=== PATIENT | female | born 1980 | race Caucasian/White ===

== ENCOUNTER 2018-05-10 20:12 | Emergency (ER) | payer MEDICARE, MEDICAID, SELFPAY ==
[2018-05-10 20:17] VITALS: BP 134/85; PULSE 101; RESP 16; TEMP 36.5; O2SAT 95
--- NOTE | 2018-05-10 20:59 | DI.REPORT_ITS ---
SYMPTOM/DIAGNOSIS: PAIN, FALL PA CHEST AND LEFT RIBS: Comparison is made with chest x-ray dated 28 Jul 2015. The lower ribs are not well penetrated. There is no gross evidence of a fracture. The lungs appear clear. The heart size is within normal limits. The left shoulder appears normal. IMPRESSION: Negative chest and left ribs.
--- NOTE | 2018-05-10 21:01 | ED.GENADUL ---
Disposition Clinical Impression: Contusion of rib on left side Disposition: HOME Instructions: Rib Contusion (ED) Additional Instructions: Please use incentive spirometer every other hour as directed for the next 1 week. Please take ibuprofen 600 mg by mouth every 6-8 hours as needed for pain for the next few days. Please take tylenol (acetaminophen) 650 mg every 6 hours as needed for pain. Remove lidocaine patch before 10:00am tomorrow. Please follow-up with your primary care physician. Return to the emergency department immediately for any worsening or new concerning symptoms. 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 Pain with deep inspiration. Lungs clear on exam and saturating well with no respiratory distress. Abdominal exam is benign. Concern for rib contusion versus fracture. Consider pneumothorax. We will place lidocaine patch for pain. Patient is taking ibuprofen and Tylenol prior to arrival. History of Present Illness - General Chief complaint: Orthopedic Stated complaint: RIBS & SHOULDER INJ/FELL Time Seen by Provider: 05/10/18 20:52 Source: patient, RN notes reviewed Mode of arrival: ambulatory Limitations: no limitations - History of Present Illness Initial comments: 37-year-old female with multiple medical problems including asthma, bipolar disorder, insulin dependent diabetes, on methadone, hepatitis C, migraine headaches, presents with chief complaint of rib pain. Patient notes that she tripped over her dog's leash and fell from standing to the ground. This occurred about 2 hours prior to arrival. Pain is localized to her left chest. Pain is severe and worse with deep inspiration. Patient took Tylenol and ibuprofen prior to arrival. No associated shortness of breath. She did hit her head but did not lose consciousness. No headache or neck pain. She does have some mild pain in her left hip. - Related Data Methadone HCl [Methadone Intensol] 70 mg PO DAILY 01/25/15 Alcohol Antiseptic Pads [Alcohol Pads] 1 each TP DAILY #100 each 08/01/15 Staples, Insulin Disposable [Bd Ultra-Fine Pen Needle] 1 each QID #360 ndl 08/09/16 Ammonium Lactate [AMMONIUM LACT 12%] 225 gm TP BID #1 script 01/13/17 Metformin HCl [Metformin HCl ER] 500 mg PO BID 02/20/17 Estradiol [Vagifem] 10 mcg VG HS twice weekly #24 tab 06/03/17 Albuterol Sulfate [Proair Hfa] 1 - 2 puff IH Q4-6H PRN #1 inhaler 06/12/17 Nystatin Powder 60 GM [Mycostatin Powder] 60 gm TP BID #60 gram 07/09/17 Atorvastatin Calcium 10 mg PO DAILY #90 tab-cap 08/11/17 Clonidine HCl 0.1 mg PO TID #270 tab-cap 11/19/17 Topiramate 25 mg PO DAILY 90 Days #90 cap.sprink 11/19/17 Blood Sugar Diagnostic [Onetouch Verio] 1 each QID #350 strip 12/01/17 Blood-Glucose Meter [Caro Nuttouch Verio Iq] 1 each QID #1 kit 12/01/17 Fluoxetine HCl [Prozac] 30 mg PO DAILY 12/03/17 Lancets 1 each QID #400 each 12/04/17 Fluticasone Propionate [Flonase Allergy Relief] 1 - 2 sprays NS DAILY PRN #1 bottle 12/19/17 SUMAtriptan [Imitrex] 25 mg PO See Instructions #9 tab-cap 12/31/17 Hydroxyzine HCl 25 mg PO HS PRN 01/13/18 Valacyclovir HCl [Valacyclovir] 500 mg PO DAILY #90 tab-cap 02/18/18 Omeprazole 20 mg PO DAILY #90 tab-cap 02/19/18 Acyclovir [Zovirax] 400 mg PO TID #15 tab-cap 02/20/18 Insulin Aspart [NovoLOG Flexpen] 50 - 60 units SQ PC #5 box 03/11/18 Metoclopramide HCl [Reglan] 10 mg PO TID #270 tab-cap 03/19/18 Polyethylene Glycol 3350 17 gm PO DAILY PRN #527 gram 03/19/18 Acetaminophen 1,000 mg PO Q8H PRN #90 tab-cap 03/23/18 Baclofen 10 mg PO TID PRN #60 tab-cap 03/23/18 Docusate Sodium [Colace] 300 mg PO HS #270 tab-cap 03/23/18 Ibuprofen 800 mg PO Q8H PRN #30 tab-cap 03/23/18 Magnesium Oxide 800 mg PO DAILY #180 tab-cap 03/23/18 Ondansetron [Ondansetron Odt] 8 mg PO BID PRN #180 tab-cap 03/23/18 Canagliflozin [Invokana] 300 mg PO DAILY #90 tab-cap 05/04/18 Insulin Degludec [Tresiba Flextouch U-100] 115 unit SQ HS #3 box 05/08/18 Pregabalin [Lyrica] 200 mg PO BID #56 tab-cap 05/08/18 Lidocaine 5% [Lidoderm 5% Patch] 1 each TP DAILY PRN PRN #10 patch 05/10/18 Allergies Allergy/AdvReac Type Severity Reaction Status Date / Time Penicillins Allergy Unknown unknown Unverified 05/10/18 20:19 aspirin AdvReac Intermediate nausea/pain Unverified 05/10/18 20:19 Review of Systems Respiratory: denies: cough, shortness of breath Cardiovascular: as per HPI, chest pain Gastrointestinal: denies: abdominal pain Musculoskeletal: as per HPI Neurological: as per HPI Comment: All other systems reviewed and negative Past Medical History - Past Medical History Medical history: asthma, diabetes migraine ALEXANDER, narcotic drug abuse, fibromyalgia Surgical history: , hysterectomy, other (Laparoscopy) - Social History Smoking status: current everyday smoker Alcohol use: none Drug use: cocaine (and heroin) General Exam - General Limitations: no limitations General appearance: alert, in no apparent distress - Eye Eye exam: Present: PERRL, EOMI - ENT ENT exam: Present: mucous membranes moist - Neck Neck exam: Present: full ROM. Absent: tenderness - Respiratory Respiratory exam: Present: normal lung sounds bilaterally, chest wall tenderness (left lateral 4-6 ribs), other (pain with inspiration). Absent: respiratory distress - GI/Abdominal GI/Abdominal exam: Present: soft, normal bowel sounds. Absent: distended, tenderness, guarding, rebound, rigid - Extremities Exam Extremities exam: Present: other (pelvis stable and nonttp, FROM left hip) - Neurological Exam Neurological exam: Present: alert. Absent: altered - Psychiatric Psychiatric exam: Absent: normal affect - Skin Skin exam: Present: warm, dry, intact Course Vital Signs - 24 hr 05/10/18 20:17 Temperature 36.5 C Pulse 101 H Respiratory 16 Rate Blood Pressure 134/85 Pulse Oximetry 95
[2018-05-10] MEDS: Lidocaine 5% Patch 1 PATCH TP (21:13)
--- NOTE | 2018-05-10 22:00 | DI.VRAD_ITS ---
EXAM: XR Left Ribs with PA Chest, 3 Views EXAM DATE/TIME: 05/10/2018 9:01 PM CLINICAL HISTORY: 37 years old, female; Pain; Other: Lt. Sided rib pain after fall. (left lower posterior) TECHNIQUE: XR Left ribs 3 views with PA chest. COMPARISON: CR - CHEST 2 VIEWS PA,LAT 2015-07-28 13:43 FINDINGS: Lungs: Unremarkable. No consolidation. Pleural space: Unremarkable. No pleural effusion. No pneumothorax. Heart/Mediastinum: There is mild-moderate cardiomegaly. Bones/joints: No acute fractures are seen. IMPRESSION: 1. No acute left rib fractures are detected. 2. No acute pulmonary disease or acute thoracic findings are identified. Dictated and Authenticated by: Robert Cervantes MD. Ordering:YUNIOR PERSON MD
== END 2018-05-10 22:07 | disposition home or self-care (01) ==
PROVIDERS: Emergency Provider Student in an Organized Health Care Education/Training Program; PCP Nurse Practitioner Family
DX: S20.212A Contusion of left front wall of thorax, initial encounter (principal); W18.31XA Fall on same level due to stepping on an object, initial encounter; Y93.K1 Activity, walking an animal; E11.9 Type 2 diabetes mellitus without complications; Z79.4 Long term (current) use of insulin
CPT/HCPCS: 71101; 99284 ×2

== ENCOUNTER 2018-06-11 11:39 | Emergency (ER) | payer MEDICARE, MEDICAID, SELFPAY ==
[2018-06-11 11:41] VITALS: BP 108/78; PULSE 72; RESP 12; TEMP 36.7; O2SAT 97
--- NOTE | 2018-06-11 12:02 | DI.CT_ITS ---
SYMPTOMS/DIAGNOSIS: LT SIDED ABD PAIN CT EXAMINATION OF THE ABDOMEN AND PELVIS: The examination was carried out according to the usual protocol with intravenous administration of 100 cc's of Omnipaque 350. The lung bases are unremarkable. Fatty infiltration of an enlarged liver is identified. The gallbladder is intact. There are no stones or ductal dilatation. The pancreas and spleen are intact. The kidneys and adrenals are normal. There is no evidence of bowel obstruction. The appendix is normal. There is no evidence of diverticulosis or diverticulitis. A considerable quantity of fecal material is scattered throughout the colon. There is no evidence of free air or free fluid in the intraperitoneal space. The bladder is suboptimally dilated but no gross abnormality is seen. The patient appears to be status post hysterectomy. There is no evidence of a mass or adenopathy in the abdomen or pelvis. No hernia is identified. The aorta is unremarkable. The bony structures are intact. SUMMARY: No acute abnormality is demonstrated.
--- NOTE | 2018-06-11 12:08 | ED.GENADUL_ITS ---
Discharge Plan Disposition Patient Disposition: HOME Condition: Stable Discharge Details Chief Complaint: Abd Prob Clinical Impression: Abdominal pain Primary Care Provider: Tessa Jennings ED Provider: Hussain Espinal Home Meds and New Rx's Prescriptions: New ondansetron 4 mg tablet,disintegrating 4 mg PO TID PRN (Reason: nausea and vomiting) 5 Days Qty: 30 RF: 0 No Action clotrimazole 2 % cream 1 appful VG HS 3 Days Qty: 21 RF: 0 baclofen 10 mg tablet 10 mg PO TID PRN (Reason: back pain) 30 Days Qty: 90 RF: 0 cetirizine 10 mg tablet 10 mg PO DAILY PRN (Reason: allergy symptoms) Qty: 30 RF: 0 fluticasone [Flonase Allergy Relief] 50 mcg/actuation spray,suspension 1 - 2 spray NS DAILY PRN (Reason: allergy symptoms) Qty: 1 RF: 0 methadone [Methadone Intensol] 10 MG/1 ML concentrate 70 mg PO DAILY RF: 0 alcohol swabs [Alcohol Pads] 1 EACH pads, medicated 1 ea Topical DAILY Qty: 100 RF: 3 pen needle, diabetic [BD Ultra-Fine Yamini Pen Needle] 1 EACH needle 1 ea Miscellaneous QID Qty: 360 RF: 3 ammonium lactate 225 GM lotion 225 gm Topical BID Qty: 1 RF: 3 metformin 500 MG tablet extended release 24hr 500 mg PO BID RF: 0 estradiol [Vagifem] 10 MCG tablet 10 mcg VG HS twice weekly Qty: 24 RF: 4 albuterol sulfate [ProAir HFA] 8.5 GM HFA aerosol inhaler 1 - 2 puff Inhalation Q4-6H PRN Qty: 1 RF: 1 nystatin 60 GM powder 60 gm Topical BID Qty: 60 RF: 3 Atorvastatin Calcium 10 MG tablet 10 mg PO DAILY Qty: 90 RF: 3 clonidine HCl 0.1 MG tablet 0.1 mg PO TID Qty: 270 RF: 3 blood-glucose meter [Time [employer] Deals Verio IQ Meter] 1 EACH kit 1 ea Miscellaneous QID Qty: 1 RF: 0 blood sugar diagnostic [OwnerListensTouch Verio] 1 EACH strip 1 ea Miscellaneous QID Qty: 350 RF: 3 fluoxetine [Prozac] 20 MG capsule 30 mg PO DAILY RF: 0 lancets 1 EACH misc 1 ea Miscellaneous QID Qty: 400 RF: 3 valacyclovir 500 MG tablet 500 mg PO DAILY Qty: 90 RF: 3 omeprazole 20 MG capsule,delayed release(DR/EC) 20 mg PO DAILY Qty: 90 RF: 3 acyclovir 400 MG tablet 400 mg PO TID Qty: 15 RF: 5 insulin aspart U-100 [Novolog Flexpen U-100 Insulin] 100 UNIT/ML insulin pen 50 - 60 units SQ PC Qty: 5 RF: 0 metoclopramide HCl [Reglan] 10 MG tablet 10 mg PO TID Qty: 270 RF: 0 polyethylene glycol 3350(bulk) 1 GM granules 17 gm PO DAILY PRNQty: 527 RF: 0 ondansetron 4 MG tablet,disintegrating 8 mg PO BID PRNQty: 180 RF: 3 ibuprofen 800 MG tablet 800 mg PO Q8H PRN Qty: 30 RF: 3 acetaminophen 500 MG tablet 1,000 mg PO Q8H PRN Qty: 90 RF: 3 magnesium oxide 400 MG tablet 800 mg PO DAILY Qty: 180 RF: 3 docusate sodium [Colace] 100 MG capsule 300 mg PO HS Qty: 270 RF: 3 canagliflozin [Invokana] 300 MG tablet 300 mg PO DAILY Qty: 90 RF: 3 insulin degludec [Tresiba FlexTouch U-100] 100 UNIT/1 ML insulin pen 115 unit SQ HS Qty: 3 RF: 3 lidocaine [Lidoderm] 1 PATCH adhesive patch,medicated 1 ea Topical DAILY PRN PRNQty: 10 RF: 0 sumatriptan succinate 25 mg tablet 25 mg PO ONCE MDD 200 mg PRN (Reason: migraine headache) Qty: 30 RF: 3 pregabalin 200 mg capsule 200 mg PO TID Qty: 90 RF: 2 hydroxyzine HCl 25 mg tablet 75 mg PO HS PRNRF: 0 quetiapine [Seroquel] 50 mg tablet 50 mg PO BID RF: 0 topiramate 25 mg tablet 25 mg PO DAILY Qty: 90 RF: 3 Discharge Instructions Instructions: Abdominal Pain (ED) Additional Instructions: your cat scan and blood work did not show any significant findings. follow up with your primary care provider within 1-2 weeks if you have significant worsening of pain or persistent vomit return to the emergency department Discharge Data Discharge Physician: Hussain Espinal Medical Decision Making MDM Narrative Medical decision making narrative: 37 yo female with hx of dm, gastroparesis, prior hysterectomy, who comes in with left upper abdominal pain for 3 days and nausea, had vomit yesterday. Denies any fevers or changes in bowel habites or urinary symptoms. Has no guarding or rebound on exam. Will obtain CT to eval for possible sbo vs spleen pathology and eval for hepatitis and pancreatitis. labs and imaging per Dr. Nolasco unremarkable, she has no pain on exam. will d/c with zofran. I suspect this is gastroparesis or less likely gastritis, advised f /u with pcp and return precautions given Differential Diagnosis pancreatitis, hepatitis, gastroparesis Imaging Data Radiologic Study: Attestation: I personally reviewed and interpreted this imaging study as follows: Imaging: CT Scan My impression: no acute findings Radiologist's impression: no acute findings per Dr. Nolasco Lab Data Lab results reviewed: Yes I reviewed the patient's lab results. HPI General Mode of arrival: ambulatory . Date/Time Provider Initiated Documentation: 06/11/18 11:54 . Limitations to Documentation: no limitations . Information obtained by: patient . History of Present Illness 37 year old F presents to the emergency department with the chief complaint of abd pain, described as moderate, with intensity rated at 4. Quality is described as aching, and is localized to the left. Patient reports no radiation. Patient started experiencing this day(s) (3) and it has been constant. No relieving factors improve symptom(s), No exacerbating factors reported . Patient notes nausea/vomiting. Patient did receive the following treatments prior to arrival, none Related Data Home Medications Medication Instructions Recorded Confirmed methadone [Methadone Intensol] 70 mg PO DAILY 01/25/15 06/11/18 alcohol swabs [Alcohol Pads] 1 ea TOPICAL DAILY #100 ea 08/01/15 06/10/18 pen needle, diabetic [BD #360 ndl 08/09/16 06/11/18 Ultra-Fine Yamini Pen Needle] ammonium lactate 225 gm TOPICAL BID #1 script 01/13/17 06/11/18 metformin 500 mg PO BID 02/20/17 06/11/18 fluoxetine [Prozac] 30 mg PO DAILY 12/03/17 06/11/18 polyethylene glycol 3350(bulk) 17 gm PO DAILY PRN #527 gm 03/19/18 06/11/18 ondansetron 8 mg PO BID PRN #180 tab-cap 03/23/18 06/11/18 lidocaine [Lidoderm] 1 ea TOPICAL DAILY PRN PRN #10 05/11/18 06/10/18 patch hydroxyzine HCl 25 mg tablet 75 mg PO HS PRN tab 05/29/18 06/11/18 quetiapine 50 mg tablet 50 mg PO BID 05/29/18 06/11/18 Previous Rx's Medication Instructions Recorded estradiol [Vagifem] 10 mcg VG HS twice weekly #24 tab 06/03/17 albuterol sulfate [ProAir HFA] 1 - 2 puff INHALATION Q4-6H PRN #1 06/12/17 inhaler nystatin 60 gm TOPICAL BID #60 gm 07/09/17 clonidine HCl 0.1 mg PO TID #270 tab-cap 11/19/17 blood sugar diagnostic [OneTouch #350 strip 12/01/17 Verio] blood-glucose meter [OneTouch #1 kit 12/01/17 Verio IQ Meter] lancets #400 ea 12/04/17 valacyclovir 500 mg PO DAILY #90 tab-cap 02/18/18 omeprazole 20 mg PO DAILY #90 tab-cap 02/19/18 acyclovir 400 mg PO TID #15 tab-cap 02/20/18 insulin aspart U-100 [Novolog 50 - 60 units SQ PC #5 box 03/11/18 Flexpen U-100 Insulin] metoclopramide HCl [Reglan] 10 mg PO TID #270 tab-cap 03/19/18 acetaminophen 1,000 mg PO Q8H PRN #90 tab-cap 03/23/18 docusate sodium [Colace] 300 mg PO HS #270 tab-cap 03/23/18 ibuprofen 800 mg PO Q8H PRN #30 tab-cap 03/23/18 magnesium oxide 800 mg PO DAILY #180 tab-cap 03/23/18 canagliflozin [Invokana] 300 mg PO DAILY #90 tab-cap 05/04/18 insulin degludec [Tresiba 115 unit SQ HS #3 box 05/08/18 FlexTouch U-100] sumatriptan 25 mg tablet 25 mg PO ONCE PRN #30 tab-cap MDD 05/27/18 200 mg pregabalin 200 mg capsule 200 mg PO TID #90 tab-cap 05/29/18 topiramate 25 mg tablet 25 mg PO DAILY #90 tab-cap 05/29/18 baclofen 10 mg tablet 10 mg PO TID PRN 30 Days #90 06/05/18 tab-cap cetirizine 10 mg tablet 10 mg PO DAILY PRN #30 tab 06/05/18 fluticasone 50 mcg/actuation nasal 1 - 2 spray NS DAILY PRN #1 gm 06/05/18 spray,suspension clotrimazole 2 % vaginal cream 1 appful VG HS 3 Days #21 gm 06/10/18 ondansetron 4 mg PO TID PRN 5 Days #30 tab 06/11/18 Allergies Allergy/AdvReac Type Severity Reaction Status Date / Time Penicillins Allergy Unknown unknown Unverified 06/11/18 11:48 aspirin AdvReac Intermediate nausea/pain Unverified 06/11/18 11:48 General Stated Complaint: Abd Prob CARLOS: 3 Review of Systems Review of Systems All systems reviewed & are unremarkable except as noted in HPI and below Constitutional Denies chills, Denies fever(s) and Denies weakness Eyes Patient Denies loss of vision ENT Denies change in voice Cardiovascular Denies chest pain and Denies dyspnea Respiratory Denies dyspnea Gastrointestinal Reports abdominal pain, Reports nausea and Reports vomiting Genitourinary Denies dysuria Musculoskeletal Denies joint swelling Integumentary/Breasts Denies rash Neurologic Denies loss of vision and Denies weakness Psychiatric Denies depression Endocrine Denies cold intolerance and Denies heat intolerance Allergic/Immunologic Reports urticaria PFSH Family History Mother Substance abuse Alcohol abuse Father Substance abuse Alcohol abuse Grandmother Neoplasm Medical History Umbilical hernia (Chronic 03/11/18) Type 2 diabetes mellitus with diabetic neuropathy (Chronic 02/18/14) Tobacco use disorder (Chronic) Slow transit constipation (Chronic) 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) Poorly controlled type 2 diabetes mellitus (Chronic 03/23/18) Polypharmacy (Chronic 12/14/15) Opioid dependence (Chronic 10/31/14) Mild nonproliferative diabetic retinopathy associated with type 2 diabetes mellitus (Chronic 01/22/16) Migraine without status migrainosus, not intractable (Chronic) Mental health disorder (Chronic) Hypomagnesemia (Chronic 09/30/16) Hyperlipidemia (Chronic 09/30/16) Hepatitis C virus infection (Resolved) HSV-1 (herpes simplex virus 1) infection (Chronic 03/12/17) Gastroparesis (Chronic 06/28/16) Fatty liver (Chronic 12/18/15) Dyspareunia in female (Chronic 07/09/17) Depressive disorder (Chronic 10/31/14) Chronic nausea (Chronic) Chronic fatigue (Chronic 07/19/15) Atrophic vaginitis (Chronic 07/09/17) Adult BMI > 30 (Chronic) Abnormal liver function tests (Chronic 12/18/15) Diabetic neuropathy Gastroparesis Genital herpes HLD (hyperlipidemia) Hepatitis C History of substance abuse Mental health disorder Tobacco use disorder Type 2 diabetes mellitus Social History adopted: No caregiver/support person: No foster care: Yes housing: apartment lives independently: Yes number of children: 2 current occupational status: disabled pets and animals: Yes pets and animals: dog(s) Hx Recent Travel: No frequency: daily duration: 30-45 minutes/day Smoking/Tobacco Use Status: Current every day tobacco type: cigarettes alcohol intake: never substance use type: does not use Surgical History section (~2003) EGD (04/16/16) Hysterectomy, Vaginal w/ BSO (~2006) Exam Const General: no acute distress Orientation: alert HENMT Head: normal to inspection Ears: external ears normal General nose exam: external nose normal Mouth: moist mucous membranes Eyes General: appearance normal, both eyes and all related structures Neck Neck: normal visual inspection Resp Effort & Inspection: normal respiratory effort and able to speak in complete sentences Cardio Rate: regular rate GI Inspection: normal to inspection Palpation: soft and tender in the LUQ Skin General skin exam: no rashes or lesions noted Neuro General: alert and oriented x3 Extrem General: normal to inspection Psych Mental Status: mental status grossly normal Course Vital Signs Temperature 36.7 C 06/11/18 11:41 Pulse 72 06/11/18 11:41 Respiratory Rate 12 06/11/18 11:41 Blood Pressure 108/78 06/11/18 11:41 Pulse Oximetry 97 06/11/18 11:41 Temperature 36.7 C 06/11/18 11:41 Pulse 72 06/11/18 11:41 Respiratory Rate 12 06/11/18 11:41 Blood Pressure 108/78 06/11/18 11:41 Pulse Oximetry 97 06/11/18 11:41
[2018-06-11] MEDS: Normal Saline 1,000 ML 1000 ML IV (12:10)
[2018-06-11] MEDS: Ketorolac 15 MG/ML VIAL IVP (12:11)
[2018-06-11] MEDS: Ondansetron 4 MG/2 ML VIAL IVP (12:11)
[2018-06-11 12:24] LABS: Abs Immature Grans 0.09 k/cumm (0.0-0.09); Absolute Basophil Count 0.03 k/cumm (0.0-0.2); Absolute Eosinophil Count 0.14 k/cumm (0.0-0.7); Absolute Lymphocyte Count 3.53 k/cumm (1.2-3.4); Absolute Monocyte Count 0.64 k/cumm (0.11-0.7); Absolute Neutrophil Count 8.63 k/cumm (1.2-6.7); Basophils % 0.2; Eosinophils % 1.1; HCT 45.5 % (36.0-46.0); HGB 14.8 g/dL (12.0-15.5); Immature Grans % 0.7; Mean Corp. HGB Concentration 32.5 g/dL (32.0-36.0); Mean Platelet Volume 11.4 fL (8.0-11.0); Monocytes % 4.9; Neutrophils % 66.1; Platelet Count 240 x1000/uL (130-400); RBC 5.48 m/cumm (4.00-5.20); RBC Distribution Width 14.6 % (11.7-14.6); White Blood Cell Count 13.06 k/cumm (4.4-10.8)
[2018-06-11 12:30] LABS: ALT 27 U/L (12-78); AST 23 U/L (15-37); Albumin 3.7 g/dL (3.4-5.0); Alkaline Phosphatase 152 U/L (46-116); Anion Gap 10.6 mmol/L (3-11); BUN 17 mg/dL (7-18); CO2 28.4 mmol/L (21.0-32.0); CREATININE 0.82 mg/dL (0.55-1.02); Calcium 9.4 mg/dL (8.5-10.1); Chloride 101 mmol/L (98-107); Glucose 150 mg/dL (70-100); Lipase 86 U/L (73-393); Sodium 140 mmol/L (136-145)
[2018-06-11 12:33] LABS: Bilirubin Negative (Negative); Blood Negative (Negative); Clarity Clear; Glucose 500 mg/dL (Negative); Ketones Negative (Negative); Leukocyte Esterase Negative (Negative); Nitrite Negative (Negative); Specific Gravity 1.015 (1.005-1.025); Urobilinogen 0.2 EU/dL (Up TO 0.2)
[2018-06-11 12:48] LABS: Bilirubin, Total 0.3 mg/dL (0.2-1.0)
[2018-06-11] MEDS: Omnipaque 350 MG/ML 100 ML BTL IJ (12:58)
[2018-06-11 13:40] VITALS: BP 117/78; PULSE 60; RESP 12; TEMP 36.8; O2SAT 97
== END 2018-06-11 13:41 | disposition home or self-care (01) ==
PROVIDERS: Emergency Provider Emergency Medicine; PCP Nurse Practitioner Family
DX: R10.12 Left upper quadrant pain (principal); K31.84 Gastroparesis; R11.0 Nausea; E11.9 Type 2 diabetes mellitus without complications; Z79.4 Long term (current) use of insulin
CPT/HCPCS: 36415; 80053; 83690; 96361; 96374; 96375; 99285; 74177; 81003; 85025; J1885; J2405; J3490

== ENCOUNTER 2018-06-22 00:46 | Outpatient (CLI) | payer MEDICARE, MEDICAID, SELFPAY ==
--- NOTE | 2018-06-22 07:48 | DI.US_ITS ---
SYMPTOMS/DIAGNOSIS: LUQ ABD PAIN, ? CHOLECYSTITIS VS PANCREATITIS VS OTHER, R10.12 ABDOMINAL ULTRASOUND: The liver is mildly enlarged and mildly echogenic consistent with hepatic steatosis as noted on recent CT. There are probable small areas of focal fatty sparing, also subtly evident on the CT, adjacent to the gallbladder fossa. No dominant hepatic mass identified. No biliary dilatation seen with 6 mm common hepatic duct. Gallbladder is partially contracted but normal in appearance. The pancreas is unremarkable as visualized. The spleen may be mildly enlarged but otherwise unremarkable. The kidneys show unremarkable appearance with no evidence of hydronephrosis, nephrolithiasis or renal mass. CONCLUSION: Findings of mild hepatosplenomegaly and hepatic steatosis. No evidence of cholelithiasis or acute cholecystitis.
== END 2018-06-22 01:06 ==
PROVIDERS: PCP Nurse Practitioner Family; Visit Provider Nurse Practitioner Family
DX: R10.12 Left upper quadrant pain (principal); R16.2 Hepatomegaly with splenomegaly, not elsewhere classified; K76.0 Fatty (change of) liver, not elsewhere classified
CPT/HCPCS: 76700

== ENCOUNTER 2018-07-09 02:43 | Outpatient (CLI) | payer MEDICARE, MEDICAID, SELFPAY | END 2018-07-09 03:03 | PROVIDERS: PCP Nurse Practitioner Family; Visit Provider Nurse Practitioner Family | DX: I45.81 Long QT syndrome (principal); F43.10 Post-traumatic stress disorder, unspecified | CPT/HCPCS: 93005; 93010 ==

== ENCOUNTER 2018-07-09 08:00 | Outpatient (CLI) | payer MEDICARE, MEDICAID, SELFPAY ==
[2018-07-09 08:29] LABS: Abs Immature Grans 0.08 k/cumm (0.0-0.09); Absolute Basophil Count 0.04 k/cumm (0.0-0.2); Basophils % 0.3; HCT 43.3 % (36.0-46.0); Immature Grans % 0.6; Lymphocytes % 35.6; Mean Corp. HGB Concentration 32.3 g/dL (32.0-36.0); Mean Corpuscular Hemoglobin 26.8 pg (27.0-33.0); Mean Platelet Volume 10.5 fL (8.0-11.0); Monocytes % 6.1; Neutrophils % 56.4; Platelet Count 244 x1000/uL (130-400); RBC 5.22 m/cumm (4.00-5.20); White Blood Cell Count 14.48 k/cumm (4.4-10.8)
[2018-07-09 08:41] LABS: Absolute Eosinophil Count 0.14 k/cumm (0.0-0.7); Absolute Lymphocyte Count 5.15 k/cumm (1.2-3.4); Absolute Monocyte Count 0.88 k/cumm (0.11-0.7); Absolute Neutrophil Count 8.17 k/cumm (1.2-6.7)
[2018-07-09 09:00] LABS: Hemoglobin A1C 7.2 % (4.5-6.2)
[2018-07-09 09:24] LABS: ALT 23 U/L (12-78); AST 15 U/L (15-37); Albumin 3.4 g/dL (3.4-5.0); Alkaline Phosphatase 144 U/L (46-116); Anion Gap 10.7 mmol/L (3-11); BUN 12 mg/dL (7-18); Bilirubin, Total 0.2 mg/dL (0.2-1.0); CO2 29.3 mmol/L (21.0-32.0); CREATININE 0.84 mg/dL (0.55-1.02); Calcium 9.4 mg/dL (8.5-10.1); Chloride 103 mmol/L (98-107); Glucose 87 mg/dL (70-100); Potassium 3.7 mmol/L (3.5-5.1); Sodium 143 mmol/L (136-145)
[2018-07-09 09:27] LABS: Lipase 88 U/L (73-393)
== END 2018-07-09 08:20 ==
PROVIDERS: PCP Nurse Practitioner Family; Visit Provider Nurse Practitioner Family
DX: R10.12 Left upper quadrant pain (principal); E11.40 Type 2 diabetes mellitus with diabetic neuropathy, unspecified; E11.65 Type 2 diabetes mellitus with hyperglycemia
CPT/HCPCS: 36415; 80053; 83690; 83036; 85025; 93005; 93010

== ENCOUNTER 2018-07-13 12:18 | Outpatient (REF) | payer MEDICARE, MEDICAID, SELFPAY | END 2018-07-13 12:38 | LOC: LBN 12:18 | PROVIDERS: PCP Nurse Practitioner Family; Visit Provider Nurse Practitioner Family | DX: J02.9 Acute pharyngitis, unspecified (principal) | CPT/HCPCS: 87070 ==

== ENCOUNTER 2018-08-11 01:31 | Outpatient (CLI) | payer MEDICARE, MEDICAID, SELFPAY ==
--- NOTE | 2018-08-11 09:42 | DI.COMBO_ITS ---
SYMPTOM/DIAGNOSIS: LT BREAST CELLULITIS, PROB ABSCESS N61.0 N63.23 MAMMOGRAM: Mammograms were interpreted according to the usual protocol including computer analysis with CAD system, tomosynthesis and C view imaging. Dense breast tissue is identified in the superior portion of the left breast. Breast density is otherwise category B. There are no discrete masses. No suspicious calcifications. A marker was positioned over a tender region of the superior portion of the left breast. SUMMARY: Nothing specific to suggest a malignancy, however, given the clinical status of this patient further assessment with ultrasound was carried out. Breast density, Category C. ULTRASOUND LEFT BREAST: The ultrasound examination revealed soft tissue edema. No discrete mass or fluid collection is identified. SUMMARY: Nothing to suggest a malignancy. The patient has apparently had a recent abscess in the left breast. Follow up surveillance with annual screening mammography is recommended.
== END 2018-08-11 01:51 ==
PROVIDERS: PCP Nurse Practitioner Family; Visit Provider Nurse Practitioner Family
DX: N61.0 Mastitis without abscess; N63.23 Unspecified lump in the left breast, lower outer quadrant; N64.59 Other signs and symptoms in breast
CPT/HCPCS: 76642; 77062; 77066; G0279

== ENCOUNTER 2018-09-14 00:43 | Outpatient (CLI) | payer MEDICARE, MEDICAID, SELFPAY ==
--- NOTE | 2018-09-14 10:34 | DI.US_ITS ---
SYMPTOMS/DIAGNOSIS: RIGHT MASTODYNIA, ? MASS VERSUS ABSCESS, N64.4; RECENT LEFT BREAST CELLULITIS AND ABSCESS; NEGATIVE MAMMOGRAM RIGHT BREAST ULTRASOUND: Ultrasound examination of the right breast was performed for suspected mass or abscess. No breast mass identified by ultrasound criteria. No evidence of an abscess or fluid collection. CONCLUSION: Negative right breast ultrasound.
== END 2018-09-14 01:03 ==
PROVIDERS: PCP Nurse Practitioner Family; Visit Provider Nurse Practitioner Family
DX: N64.4 Mastodynia (principal); N61.1 Abscess of the breast and nipple
CPT/HCPCS: 76642

== ENCOUNTER 2018-11-13 15:26 | Outpatient (REF) | payer MEDICARE, MEDICAID, SELFPAY | END 2018-11-13 15:46 | LOC: LBN 15:26 | PROVIDERS: PCP Nurse Practitioner Family; Visit Provider Nurse Practitioner Family | DX: J02.9 Acute pharyngitis, unspecified (principal) | CPT/HCPCS: 87070 ==

== ENCOUNTER 2022-05-24 01:19 | Emergency (ER) | payer MEDICARE, MEDICAID, SELFPAY ==
--- NOTE | 2022-05-24 01:15 | DI.CT_ITS ---
Exam(s) CT ABDOMEN PELVIS WO EXAM: CT ABDOMEN PELVIS WO INDICATION: vomiting 3 days, r/o SBO. COMPARISON: CT CT ABDOMEN PELVIS W from 06/11/2018 TECHNIQUE: FINDINGS: CT examination of the abdomen and pelvis was performed without contrast administration. Images obtained through the lung bases are unremarkable. May be slightly enlarged, possible mild hepatic steatosis.. Gallbladder is distended and contains sludge and probable stones, bile ducts are CT normal. Pancreas appears normal. Spleen is unremarkable in appearance. Adrenals appear normal. The kidneys are unremarkable with no evidence of hydronephrosis, nephrolithiasis, or renal mass.. Ur inary bladder unremarkable. Abdominal aorta is of normal diameter and no major vascular abnormality is seen. No abdominal wall hernia. No abdominal or pelvic adenopathy. Uterus is atrophic or absent.. Appendix is normal. No evidence of diverticulitis or bowel obstruction. IMPRESSION: Question mild hepatomegaly and hepatic steatosis, probable cholelithiasis, otherwise negative CT exam ination of the abdomen and pelvis. RADIATION DOSE DELIVERED: 1,092.21mGy.cm Total DLP 1,092.21mGy.cm Total DLP !Error CTDIvol RADIATION OPTIMIZATION: All CT scans at this facility use at least one of these dose optimization te chniques: automated exposure control; mA and/or kV adjustment per patient size (includes targeted exa ms where dose is matched to clinical indication); or iterative reconstruction.
[2022-05-24 01:23] VITALS: PULSE 64; RESP 12; TEMP 36.3; O2SAT 95
--- NOTE | 2022-05-24 01:28 | W.ED.GENAD ---
Discharge Plan Disposition Patient Disposition: HOME Condition: Good Discharge Details Clinical Impression: Vomiting, Hypomagnesemia, Acute dehydration, Acute hypokalemia Primary Care Provider: Unknown,Unknown ED Provider: John Mayorga Home Meds and New Rx's Prescriptions: New potassium chloride 40 mEq/15 mL liquid 40 meq PO DAILY 4 Days Qty: 60 0RF metoclopramide HCl [Reglan] 10 mg tablet 10 mg PO Q6H PRNQty: 30 0RF No Action cetirizine 10 mg tablet 10 mg PO DAILY PRN (Reason: allergy symptoms) Qty: 90 3RF ammonium lactate 12 % lotion 1 applic Topical BID Qty: 225 3RF Rx Instructions: Apply on soles of feet twice a day methadone 10 mg/mL concentrate 77 mg PO DAILY Label Comments: 77 mg albuterol sulfate [ProAir HFA] 90 mcg/actuation HFA aerosol inhaler 1 - 2 puff Inhalation Q4-6H PRN Qty: 1 1RF Rx Instructions: DISPENSE ALBUTEROL INHALER BRAND COVERED BY INSURANCE nystatin 100,000 unit/gram powder 1 applic Topical BID PRN (Reason: fungal skin infection) Qty: 30 3RF Rx Instructions: Apply powder to affected area under R breast twice daily valacyclovir 500 mg tablet 500 mg PO DAILY Qty: 90 3RF Rx Instructions: FOR SUPRESSION OF HSV fluticasone propionate [Flonase Allergy Relief] 50 mcg/actuation spray,suspension 1 - 2 spray NS DAILY PRN (Reason: allergy symptoms) Qty: 1 0RF Rx Instructions: FOR ALLERGIES & CONGESTION prazosin 2 mg capsule 2 mg PO QHS alcohol swabs [Alcohol Pads] 1 EACH pads, medicated 1 ea Topical DAILY Qty: 100 (DME) blood-glucose meter [ZendyPlaceTouch Verio IQ Meter] 1 EACH kit 1 ea Miscellaneous QID Qty: 1 0RF Rx Instructions: E 11.329, E11.40 to test blood sugars 4xd,maintain HGB A1C less than 7 (DME) lancets 1 EACH misc 1 ea Miscellaneous QID Qty: 400 3RF Rx Instructions: Dx: E11.40 to maintain HbA1C less than 7% Please dispense lancets to use with Verio Glucometer docusate sodium [Colace] 100 MG capsule 300 mg PO HS Qty: 270 3RF Glucagon Emergency Kit (human) 1 mg recon soln 1 mg SC ONCE Qty: 1 0RF Rx Instructions: 1 mg SQ ONCE; may repeat in 15 minutes as needed hydroxyzine HCl 50 mg tablet 50 mg PO TID PRN Label Comments: note dated 10/27/18 [facility] Trudy Ray [facility] dextroamphetamine-amphetamine [Adderall] 20 mg tablet 20 mg PO TID Label Comments: Trudy Campbell, [employer]ED [employer]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 02/02/19 [facility] (DME) pen needle, diabetic [BD Ultra-Fine Yamini Pen Needle] 32 gauge x needle 1 ea Miscellaneous QID Qty: 100 0RF Rx Instructions: Dx: E11.9 to maintain HbA1c less than 7% To administer Insulin Dispense BD ultra fine atorvastatin 10 mg tablet 10 mg PO QHS Qty: 90 0RF metoclopramide HCl [Reglan] 10 mg tablet 10 mg PO TID Qty: 270 0RF Rx Instructions: Administer before meals sumatriptan succinate 25 mg tablet 25 mg PO ONCE MDD 200 mg PRN (Reason: migraine headache) Qty: 12 2RF Rx Instructions: Take 25 mg as needed for migraine, can repeat dose in 2 hours if needed omeprazole 20 mg capsule,delayed release(DR/EC) 20 mg PO DAILY Qty: 90 0RF ondansetron 4 mg tablet,disintegrating 8 mg PO BID PRN (Reason: nausea and vomiting) Qty: 60 0RF acetaminophen 500 mg tablet 500 - 1,000 mg PO Q8H MDD 3000 mg PRN (Reason: fever or pain) Qty: 180 0RF Rx Instructions: 1 month supply ibuprofen 800 mg tablet 800 mg PO Q8H PRN (Reason: fever or pain) Qty: 30 0RF Rx Instructions: 1 month supply; take acetaminophen first, only take ibuprofen if acetaminophen doesn't work pregabalin 200 mg capsule 200 mg PO TID Qty: 270 0RF baclofen 10 mg tablet 10 mg PO TID PRN (Reason: muscle spasm) Qty: 30 0RF (DME) OneTouch Verio test strips Strip 1 ea Miscellaneous QID Qty: 120 0RF Rx Instructions: Dx: E11.9 to check blood glucose daily to maintain HbA1c less than 7%, pt on insulin, QID testing Humalog U-100 Insulin 100 unit/mL Cartridge 30 unit subcut TID Discharge Instructions Instructions: Dehydration (ED), Hypokalemia (ED) Additional Instructions: At this at this time your laboratory work-up has shown evidence of a low potassium level. From your vomiting. Please take foods high in potassium like bananas or legumes over the next few days. Additionally I have sent a prescription for potassium supplement to be taken over the next few days to help get your levels back to normal. Please avoid any spicy foods, greasy foods, or tomato-based products. Please stick with bland foods like oatmeal, crackers, bananas, and rice for the next week. As you have elected to leave before we were able to get repeat labs, it is vitally important a follow-up closely with your primary care provider for repeat labs in the next 2 to 3 days. Please take the nausea medicine as directed. We have given you some to go home with, and we have also sent a prescription to your pharmacy on file. If you notice any worsening of your symptoms, or any new symptoms such as vomiting, diarrhea, fever, chills, shortness of breath, chest pain, numbness, weakness, or fainting , please return immediately to the emergency department for reevaluation. Please follow up with your primary care provider as soon as possible for reassessment and reevaluation. As always, it was a pleasure participating in your medical care today. Medical Decision Making 41-year-old female with a past medical history of high cholesterol, type 2 diabetes now only on insulin, gastroparesis, hysterectomy, presents today for evaluation of vomiting. Patient states that for the last 3 days she has been vomiting, she has been unable to keep anything down. She did have some home Zofran which was helping. She denies any chest pain or shortness of breath. She denies any blood in her vomitus or stool. She denies any diarrhea. She denies any numbness or tingling. No other sick contacts. No other complaints at this time. Exam demonstrates mild epigastric tenderness, notably dry mucous membranes. Differential includes pancreatitis, small bowel obstruction. We will get a CT scan to rule out SBO, we will rehydrate, give Zofran, monitor closely and reassess. 6:16 AM Laboratory work-up is returned and the patient was noted to be hypokalemic at 2.9, magnesium was also low at 1.1. Lipase is normal, transaminases were normal. Anion gap was normal. Symptoms inconsistent with severe DKA. On reassessment after fluid rehydration, the patient is feeling much better. Patient has been given 4 g of magnesium and 40 mEq of IV potassium. She has tolerated this very well. Patient is unwilling to stay for lab redraw and retest. She is quite anxious and ready to leave immediately. I did discuss with her the risks of this. She assures me that she will follow-up with her primary care provider today or Friday for lab recheck. We will send home with some potassium supplementation, as well as reglan. Patient was able to tolerate Jell-O and liquid drink here and feels much better. Repeat abdominal exam shows no signs of an acute surgical abdomen. Patient stable for discharge respecting her wishes. I have extensively reviewed the treatment plan and discharge instructions with the patient. I have addressed all patient concerns at this time. The patient was made aware of what symptoms to monitor for that would warrant a return to the emergency department. Discussed the plan with the patient, they demonstrate verbal understanding and agreement with our assessment and plan at this time. The documentation in this chart was dictated using ProQuo dictation software. Please excuse any dictation errors. FINDINGS: Lungs: Visualized lung bases are clear. No pleural effusions. Liver: Enlarged, measuring 19.5 cm craniocaudal, with mild hepatic steatosis. Gallbladder and bile ducts: The gallbladder is distended, which is a nonspecific finding. This could be physiologic. There is dependent sludge versus layering noncalcified gallstones within the gallbladder. No pericholecystic inflammatory changes are apparent. There is no intrahepatic or extrahepatic biliary ductal dilatation. Pancreas: Unremarkable. Spleen: Unremarkable. The spleen is normal in size. Adrenal glands: Unremarkable. Kidneys and ureters: The kidneys are normal and symmetric in size, without hydronephrosis, calcifications, or contour-deforming masses. No calcifications are identified in the ureters, which are normal in caliber. Stomach and bowel: The stomach is nondilated. The small and large bowel are normal in caliber. There is a moderate amount of retained stool throughout the colon Appendix: A nondilated appendix is identified. Intraperitoneal space: No ascites, fluid collection, or pneumoperitoneum. Retroperitoneal space: Unremarkable. No retroperitoneal collection or mass. Vasculature: Minimal atherosclerotic vascular calcifications. Normal caliber abdominal aorta. Lymph nodes: No pathologically enlarged lymph nodes. Urinary bladder: Completely collapsed/decompressed and therefore not well assessed. Reproductive: Status post hysterectomy. No suspicious pelvic masses. Bones/joints: Degenerative changes. No suspicious osseous lesions. Soft tissues: Unremarkable. IMPRESSION: 1. No acute abnormality in the abdomen or pelvis. No evidence of small bowel obstruction as clinically questioned. 2. Cholelithiasis and/or gallbladder sludge. 3. Hepatomegaly with hepatic steatosis. Thank you for allowing us to participate in the care of your patient. Dictated and Authenticated by: Dory Patten MD 05/24/2022 4:39 AM Eastern Time ([place] & [place]) HPI General Date/Time Provider Initiated Documentation: 05/24/22 01:20. HPI Narrative: 41-year-old female with a past medical history of high cholesterol, type 2 diabetes now only on insulin, gastroparesis, hysterectomy, presents today for evaluation of vomiting. Patient states that for the last 3 days she has been vomiting, she has been unable to keep anything down. She did have some home Zofran which was helping. She denies any chest pain or shortness of breath. She denies any blood in her vomitus or stool. She denies any diarrhea. She denies any numbness or tingling. No other sick contacts. No other complaints at this time. Related Data Home Medications Medication Instructions Recorded Confirmed alcohol swabs (Alcohol Pads) 1 ea topical DAILY #100 ea 08/01/15 05/24/22 blood-glucose meter (OneTouch ##1 12/01/17 04/27/19 Verio IQ Meter) lancets 26 gauge #400 ea 12/04/17 04/27/19 docusate sodium 100 mg capsule 300 mg PO HS #270 tab-caps 03/23/18 05/24/22 (Colace) fluticasone propionate 50 1 - 2 spray NS DAILY PRN allergy 06/05/18 05/24/22 mcg/actuation nasal symptoms #1 g spray,suspension (Flonase Allergy Relief) cetirizine 10 mg tablet 10 mg PO DAILY PRN allergy 07/13/18 05/24/22 symptoms #90 tab-caps ammonium lactate 12 % lotion 1 applic topical BID dry skin #225 10/05/18 05/24/22 grams glucagon (human recombinant) 1 mg 1 mg subcut ONCE #1 ea 10/12/18 05/24/22 solution for injection (Glucagon Emergency Kit) hydroxyzine HCl 50 mg tablet 50 mg PO TID PRN 11/11/18 05/24/22 prazosin 2 mg capsule 2 mg PO QHS 11/13/18 05/24/22 dextroamphetamine-amphetamine 20 20 mg PO TID 02/11/19 05/24/22 mg tablet (Adderall) methadone 10 mg/mL oral concentrate 77 mg PO DAILY 02/12/19 05/24/22 albuterol sulfate 90 mcg/actuation 1 - 2 puff inhalation Q4-6H PRN ##1 06/10/19 05/24/22 aerosol inhaler (ProAir HFA) nystatin 100,000 unit/gram topical 1 applic topical BID PRN fungal 06/10/19 05/24/22 powder skin infection #30 grams valacyclovir 500 mg tablet 500 mg PO DAILY #90 tab-caps 06/10/19 05/24/22 pen needle, diabetic 32 gauge x #100 ea 08/02/19 (BD Ultra-Fine Yamini Pen Needle) atorvastatin 10 mg tablet 10 mg PO QHS #90 tabs 09/03/19 05/24/22 metoclopramide HCl 10 mg tablet 10 mg PO TID gastroparesis; 09/03/19 05/24/22 (Reglan) originally started by GI (Dr. Ferrer #270 tab-caps omeprazole 20 mg capsule,delayed 20 mg PO DAILY #90 tab-caps 09/03/19 05/24/22 release sumatriptan succinate 25 mg tablet 25 mg PO ONCE PRN migraine 09/03/19 05/24/22 headache #12 tabs ondansetron 4 mg disintegrating 8 mg PO BID PRN nausea and 09/06/19 05/24/22 tablet vomiting #60 tab-caps acetaminophen 500 mg tablet 500 - 1,000 mg PO Q8H PRN fever or 09/24/19 05/24/22 pain #180 tab-caps ibuprofen 800 mg tablet 800 mg PO Q8H PRN fever or pain 09/24/19 05/24/22 #30 tab-caps pregabalin 200 mg capsule 200 mg PO TID #270 tab-caps 09/24/19 05/24/22 baclofen 10 mg tablet 10 mg PO TID PRN muscle spasm #30 09/30/19 05/24/22 tab-caps blood sugar diagnostic (OneTouch #120 strips 11/24/19 Verio test strips) insulin lispro 100 unit/mL 30 unit subcut TID 05/24/22 05/24/22 subcutaneous cartridge (Humalog U-100 Insulin) metoclopramide HCl 10 mg tablet 10 mg PO Q6H PRN #30 tabs 05/24/22 (Reglan) potassium chloride 40 mEq/15 mL 40 meq (15 mL) PO DAILY 4 days #60 05/24/22 oral liquid mL Previous Rx's Medication Instructions Recorded blood-glucose meter (OneTouch ##1 12/01/17 Verio IQ Meter) lancets 26 gauge #400 ea 12/04/17 docusate sodium 100 mg capsule 300 mg PO HS #270 tab-caps 03/23/18 (Colace) fluticasone propionate 50 1 - 2 spray NS DAILY PRN allergy 06/05/18 mcg/actuation nasal symptoms #1 g spray,suspension (Flonase Allergy Relief) cetirizine 10 mg tablet 10 mg PO DAILY PRN allergy 07/13/18 symptoms #90 tab-caps ammonium lactate 12 % lotion 1 applic topical BID dry skin #225 10/05/18 grams glucagon (human recombinant) 1 mg 1 mg subcut ONCE #1 ea 10/12/18 solution for injection (Glucagon Emergency Kit) albuterol sulfate 90 mcg/actuation 1 - 2 puff inhalation Q4-6H PRN ##1 06/10/19 aerosol inhaler (ProAir HFA) nystatin 100,000 unit/gram topical 1 applic topical BID PRN fungal 06/10/19 powder skin infection #30 grams valacyclovir 500 mg tablet 500 mg PO DAILY #90 tab-caps 06/10/19 pen needle, diabetic 32 gauge x #100 ea 08/02/19 (BD Ultra-Fine Yamini Pen Needle) atorvastatin 10 mg tablet 10 mg PO QHS #90 tabs 09/03/19 metoclopramide HCl 10 mg tablet 10 mg PO TID gastroparesis; 09/03/19 (Reglan) originally started by GI (Dr. Ferrer #270 tab-caps omeprazole 20 mg capsule,delayed 20 mg PO DAILY #90 tab-caps 09/03/19 release sumatriptan succinate 25 mg tablet 25 mg PO ONCE PRN migraine 09/03/19 headache #12 tabs ondansetron 4 mg disintegrating 8 mg PO BID PRN nausea and 09/06/19 tablet vomiting #60 tab-caps acetaminophen 500 mg tablet 500 - 1,000 mg PO Q8H PRN fever or 09/24/19 pain #180 tab-caps ibuprofen 800 mg tablet 800 mg PO Q8H PRN fever or pain 09/24/19 #30 tab-caps pregabalin 200 mg capsule 200 mg PO TID #270 tab-caps 09/24/19 baclofen 10 mg tablet 10 mg PO TID PRN muscle spasm #30 09/30/19 tab-caps blood sugar diagnostic (OneTouch #120 strips 11/24/19 Verio test strips) metoclopramide HCl 10 mg tablet 10 mg PO Q6H PRN #30 tabs 05/24/22 (Reglan) potassium chloride 40 mEq/15 mL 40 meq (15 mL) PO DAILY 4 days #60 05/24/22 oral liquid mL Allergies Allergy/AdvReac Type Severity Reaction Status Date / Time lamotrigine [From Lamictal] Allergy Unknown Skin Rash Verified 05/24/22 01:31 Penicillins Allergy Unknown unknown Unverified 05/24/22 01:31 aspirin AdvReac Intermediate nausea/pain Unverified 05/24/22 01:31 General Stated Complaint: Nausea/Vomit/Diar CARLOS: 3 Review of Systems All systems reviewed & are unremarkable except as noted in HPI and below PFSH All Active Problems (Updated 05/24/22 @ 05:45 by John Mayorga DO) Vomiting (Acute) Hypomagnesemia (Acute) Acute dehydration (Acute) Acute hypokalemia (Acute) Asthma (Chronic) Umbilical hernia (Chronic 03/11/18) [facility] 03/17/18 [facility] Type 2 diabetes mellitus with diabetic neuropathy (Chronic 02/18/14) w/ neuropathy mild retinopathy Left 01/16/16 Tobacco use disorder (Chronic) Started smoking age 9 Slow transit constipation (Chronic) [facility] 03/17/18 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) JAD/BSO in late 20s, no HRT Poorly controlled type 2 diabetes mellitus (Chronic 03/23/18) Polypharmacy (Chronic 12/14/15) Opioid dependence (Chronic 10/31/14) Methadone clinic Mild nonproliferative diabetic retinopathy associated with type 2 diabetes mellitus (Chronic 01/22/16) Migraine without status migrainosus, not intractable (Chronic) Mental health disorder (Chronic) Pt reports being diagnosed with bipolar disorder, disassociative disorder, anxiety, & multiple personality disorder Hypomagnesemia (Chronic 09/30/16) Hyperlipidemia (Chronic 09/30/16) 10-year ASCVD risk = unable to calculate due to not being age 40+ however dx T2DM, so Rx for statin 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 Jimenez [facility] Fatty liver (Chronic 12/18/15) Dyspareunia in female (Chronic 07/09/17) Depressive disorder (Chronic 10/31/14) ADMISSION SUICIDAL THOUGHTS 06/13/14 OD ATTEMPTS IN PAST Chronic nausea (Chronic) EGD 04/16/16 Dr. Ferrer; multifactoral: gastroparesis, constipation, hyperglycemia, methadone Chronic fatigue (Chronic 07/19/15) Atrophic vaginitis (Chronic 07/09/17) Adult BMI > 30 (Chronic) Abnormal liver function tests (Chronic 12/18/15) Medical History (Updated 05/24/22 @ 05:45 by John Mayorga DO) Cellulitis of left breast Gastroparesis Genital herpes Take daily suppression. Hepatitis C History of substance abuse Opiates, THC HLD (hyperlipidemia) Mental health disorder Tobacco use disorder Type 2 diabetes mellitus Vulvovaginal candidiasis Surgical History section (~2003) EGD (04/16/16) Dr. Ferrer Hysterectomy, Vaginal w/ BSO (~2006) Family History Mother Substance abuse Alcohol abuse Father Substance abuse Alcohol abuse Grandmother Neoplasm Colorectal CA (pt believes d'xed <50 y/o) Social History Smoking/Tobacco Use Status: Current every day Tobacco Type: cigarettes Smoking packs per day: 1 Smoking cigarettes per day: 20.0 Tobacco: How many years used: 27 Smoking risk assessment performed?: Yes Alcohol Intake: never Drug use: Current Sobriety Substance use type: does not use Adopted: No Caregiver/Support person: No Foster care: Yes Housing: apartment Number of Children: 2 Communication Needs: None Pets and animals: Yes Pets and animals: dog(s) Sexually active: No Current gender identity: female What type of physical activity do you participate in: walking Duration: 30-45 minutes/day Frequency: daily Do you feel safe at home: Yes Do you feel safe in your relationship?: Yes Exam Narrative Exam Narrative: 1.Const: Well-nourished, Well-developed, appearing stated age 2.Eyes: PERRL, no conjunctival injection, and symmetrical lids. 3.ENT: Atraumatic external nose and ears. Notably dry MM. Neck: Symmetric, trachea midline, No thyromegaly. 4.CVS: +S1/S2, No murmurs or gallops. Peripheral pulses 2+ and equal in all extremities. Brisk capillary refill in all extremities. 5.RESP: Unlabored respiratory effort. Clear to auscultation bilaterally. No wheezes rales or rhonchi 6.GI: Soft, nondistended, mild epigastric tenderness. No guarding or rebound. 7.MSK: Normocephalic/Atraumatic, Extremities w/o deformity or ttp No cyanosis or clubbing, Normal movement of all extremities 8.Skin: Warm, Dry. No rashes or lesions. 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 Sensation grossly intact, no focal neurologic deficits. 10.Psych: (AAO) x3. Appropriate mood and affect Course Vital Signs Vital signs: Vital Signs Temperature 36.3 C L 05/24/22 01:23 Pulse 64 05/24/22 01:23 Respiratory Rate 12 05/24/22 01:23 Pulse Oximetry 95 05/24/22 01:23 Temperature 36.3 C L 05/24/22 01:23 Temperature Source Skin 05/24/22 01:23 Pulse 64 05/24/22 01:23 Respiratory Rate 12 05/24/22 01:23 Blood Pressure Position Sitting 05/24/22 01:23 Pulse Oximetry 95 05/24/22 01:23 Oxygen Delivery Method Room Air 05/24/22 01:23 Oxygen Flow Rate 0 05/24/22 01:23 Pain Level 6 05/24/22 01:23
[2022-05-24 01:55] LABS: Abs Immature Grans 0.06 10^3/uL (0.0-0.06); Absolute Basophil Count 0.04 10^3/uL (0.0-0.2); Absolute Eosinophil Count 0.04 10^3/uL (0.0-0.7); Absolute Lymphocyte Count 2.96 10^3/uL (1.2-3.4); Basophils % 0.3; Eosinophils % 0.3; HCT 45.8 % (36.0-46.0); HGB 14.9 g/dL (11.2-15.7); Immature Grans % 0.4; Lymphocytes % 20.4; MCH 25.3 pg (27.0-33.0); MCHC 32.5 % (32.0-36.0); MCV 78 fL (80-95); MPV 11.1 fL (8.0-11.0); Monocytes % 6.1; Neutrophils % 72.5; Platelet Count 228 10^3/uL (130-400); RBC 5.89 10^6/uL (3.93-5.22); RDW 14.3 % (11.7-14.6); RDW-SD 39.8 fL; WBC 14.49 10^3/uL (4.4-10.8)
[2022-05-24] MEDS: Ondansetron 4 MG/2 ML VIAL IVP (01:55)
[2022-05-24] MEDS: Normal Saline 1,000 ML 1000 ML IV ×2 (01:55→02:54)
[2022-05-24 01:58] LABS: Absolute Monocyte Count 0.88 10^3/uL (0.1-0.8); Absolute Neutrophil Count 10.51 10^3/uL (1.2-6.7)
[2022-05-24 02:12] LABS: ALT 17 U/L (14-59); AST 18 U/L (15-37); Albumin 3.4 g/dL (3.4-5.0); Alkaline Phosphatase 125 U/L (46-116); Anion Gap 7.7 mmol/L (3-11); BUN 17 mg/dL (7-18); Bilirubin, Total 0.5 mg/dL (0.2-1.0); CO2 33.3 mmol/L (21.0-32.0); CREATININE 1.1 mg/dL (0.55-1.02); Calcium 9.4 mg/dL (8.5-10.1); Chloride 91 mmol/L (98-107); Estimated GFR 63.94 (mL/min/1.73m2); Glucose 267 mg/dL (74-106); Lipase 97 U/L (73-393); Sodium 132 mmol/L (136-145); Total Protein 7.6 g/dL (6.4-8.2)
[2022-05-24 02:14] LABS: Potassium 2.9 mmol/L (3.5-5.1)
[2022-05-24] MEDS: Potassium Chloride 20 MEQ TABCR 40 MEQ PO (02:20)
[2022-05-24] MEDS: POTASSIUM CHLORIDE 20 MEQ/100 ML BAG 50 MEQ IVPB ×2 (02:21→04:51)
[2022-05-24 02:24] LABS: Bilirubin Negative (Negative); Blood Negative (Negative); Clarity Clear (Clear); Glucose 100 mg/dL (Negative); Ketones 40 mg/dL (Negative); Leukocyte Esterase Negative (Negative); Nitrite Negative (Negative); Specific Gravity 1.025 (1.005-1.025); Urobilinogen 0.2 EU/dL (Up TO 0.2)
[2022-05-24 02:31] LABS: Bacteria Few HPF (Negative); C & S Indicated? No/Sq. Contamination; Casts Negative LPF (Negative); Crystals Negative HPF (Negative); Epithelial Cells Moderate HPF (Negative); Mucus Negative (Negative); RBC 0-2 HPF (0-2); WBC 0-2 HPF (0-5)
[2022-05-24 02:35] LABS: Magnesium 1.1 mg/dL (1.8-2.4)
[2022-05-24] MEDS: Metoclopramide 10 MG/2 ML VIAL IVP (02:49)
[2022-05-24] MEDS: MAGNESIUM SULFATE 4 GM/100 ML BAG IVPB (03:17)
--- NOTE | 2022-05-24 04:39 | DI.VRAD_ITS ---
PROCEDURE INFORMATION: Exam: CT Abdomen And Pelvis Without Contrast Exam date and time: 05/24/2022 2:43 AM Age: 41 years old Clinical indication: Vomiting; Prior surgery; Surgery date: 6+ months; Surgery type: Hysterotomy; Additional info: Emesis 3 days, R/O sbo TECHNIQUE: Imaging protocol: Computed tomography of the abdomen and pelvis without contrast. Radiation optimization: All CT scans at this facility use at least one of these dose optimization techniques: automated exposure control; mA and/or kV adjustment per patient size (includes targeted exams where dose is matched to clinical indication); or iterative reconstruction. COMPARISON: CT ABDOMEN PELVIS W 06/11/2018 12:39 PM FINDINGS: Lungs: Visualized lung bases are clear. No pleural effusions. Liver: Enlarged, measuring 19.5 cm craniocaudal, with mild hepatic steatosis. Gallbladder and bile ducts: The gallbladder is distended, which is a nonspecific finding. This could be physiologic. There is dependent sludge versus layering noncalcified gallstones within the gallbladder. No pericholecystic inflammatory changes are apparent. There is no intrahepatic or extrahepatic biliary ductal dilatation. Pancreas: Unremarkable. Spleen: Unremarkable. The spleen is normal in size. Adrenal glands: Unremarkable. Kidneys and ureters: The kidneys are normal and symmetric in size, without hydronephrosis, calcifications, or contour-deforming masses. No calcifications are identified in the ureters, which are normal in caliber. Stomach and bowel: The stomach is nondilated. The small and large bowel are normal in caliber. There is a moderate amount of retained stool throughout the colon. Appendix: A nondilated appendix is identified. Intraperitoneal space: No ascites, fluid collection, or pneumoperitoneum. Retroperitoneal space: Unremarkable. No retroperitoneal collection or mass. Vasculature: Minimal atherosclerotic vascular calcifications. Normal caliber abdominal aorta. Lymph nodes: No pathologically enlarged lymph nodes. Urinary bladder: Completely collapsed/decompressed and therefore not well assessed. Reproductive: Status post hysterectomy. No suspicious pelvic masses. Bones/joints: Degenerative changes. No suspicious osseous lesions. Soft tissues: Unremarkable. IMPRESSION: 1. No acute abnormality in the abdomen or pelvis. No evidence of small bowel obstruction as clinically questioned. 2. Cholelithiasis and/or gallbladder sludge. 3. Hepatomegaly with hepatic steatosis. Dictated and Authenticated by: Dory Patten MD. Ordering:FERNANDO Lopez MD
[2022-05-24] MEDS: Prochlorperazine 10 MG/2 ML VIAL IVP (05:48)
[2022-05-24] MEDS: Ondansetron O.D.T. 4 MG TABEF, 3 TABS/BTL PO (06:29)
== END 2022-05-24 06:30 | disposition home or self-care (01) ==
LOC: ER 06:32
PROVIDERS: Emergency Provider Student in an Organized Health Care Education/Training Program
DX: E83.42 Hypomagnesemia (principal); E86.0 Dehydration; E87.6 Hypokalemia; E11.9 Type 2 diabetes mellitus without complications; F17.200 Nicotine dependence, unspecified, uncomplicated; Z79.4 Long term (current) use of insulin
CPT/HCPCS: 80053; 83690; 96361; 96374; 96375; 96376; 99284; 74176; 81003; 81015; 83735; 85025; J0780; J2405; J2765; J3475; J3480

== ENCOUNTER → 2022-06-13 02:55 | Outpatient (CLI) | payer MEDICARE, MEDICAID, SELFPAY ==
--- NOTE | 2022-06-13 10:14 | DI.RAD_ITS ---
Exam(s) XR FOOT RT COMPLETE EXAM: XR FOOT RT COMPLETE CLINICAL HISTORY: foot ulcers, r/o osteomyelitis,l97.529,l97.519. TECHNIQUE: 2D digital imaging was performed. Three views. COMPARISON: CR XR FOOT LT COMPLETE from 06/13/2022 FINDINGS: BONES: No acute fracture is present. No bony destructive lesion is seen. JOINTS: No dislocation present. Minimal degenerative changes. SOFT TISSUE: Normal. IMPRESSION: Unremarkable radiographs of the right foot. No findings to suggest osteomyelitis. DATA REPOSITORY: RADIATION DOSE DELIVERED:
--- NOTE | 2022-06-13 10:14 | DI.RAD_ITS ---
Exam(s) XR FOOT LT COMPLETE EXAM: XR FOOT LT COMPLETE CLINICAL HISTORY: r/o osteomyelitis.bilat skin foot ulcers,l97.529,l97.519. TECHNIQUE: 2D digital imaging was performed. Three views. COMPARISON: CR XR FOOT RT COMPLETE from 06/13/2022 FINDINGS: BONES: There is a subacute appearing fracture at the head of the 5th metatarsal, not significantly di splaced. No definite associated bony erosion. Also subacute appearing fracture of the 4th proximal phalanx which shows some displacement. There are ossicles adjacent to the lateral aspect of the calc aneus as well as a small accessory navicular. No bony erosions are identified. JOINTS: No dislocation present. Minimal degenerative changes. SOFT TISSUE: Chronic appearing calcification adjacent to the medial aspect of the 5th PIP joint. IMPRESSION: Subacute appearing fracture at the head of the 5th metatarsal. Subacute fracture of the proximal pha lanx of 4th toe. No definite evidence of osteomyelitis. DATA REPOSITORY: RADIATION DOSE DELIVERED:
== END ==
PROVIDERS: Visit Provider Physician Assistant
DX: S92.352A Displaced fracture of fifth metatarsal bone, left foot, initial encounter for closed fracture (principal); S92.512A Displaced fracture of proximal phalanx of left lesser toe(s), initial encounter for closed fracture; X58.XXXA Exposure to other specified factors, initial encounter
CPT/HCPCS: 73630

== ENCOUNTER → 2022-07-15 17:57 | Outpatient (CLI) | payer MEDICARE, MEDICAID, SELFPAY ==
--- NOTE | 2022-07-15 16:45 | DI.RAD_ITS ---
Exam(s) XR FOOT LT COMPLETE EXAM: XR FOOT LT COMPLETE CLINICAL HISTORY: DIABETES MELLITUS W FOOT ULCER-E13.621, NON PRESSURE CHRONIC ULCER-L97.509. TECHNIQUE: 2D digital imaging was performed. COMPARISON: CR XR FOOT RT COMPLETE from 07/15/2022 FINDINGS: 3 views There is an oblique nondisplaced healing fracture line in the head of the 5th metatarsal. There is a lso a healed fracture at the midshaft of the proximal phalanx of the 4th toe. Small osteophytic dens ity seen off the lateral aspect of the PIP joint of the 3rd toe, this doubtful for an acute fracture. Also corticated density seen off the medial aspect of the PIP joint of the 5th toe. The DIP joint is fused in the 5th toe. No other fractures identified. No diastasis of the Lisfranc joint. Access ory ossicle noted lateral to the cuboid bone. IMPRESSION: Fractures as described above. DATA REPOSITORY: RADIATION DOSE DELIVERED:
--- NOTE | 2022-07-15 16:45 | DI.RAD_ITS ---
Exam(s) XR FOOT RT COMPLETE EXAM: XR FOOT RT COMPLETE CLINICAL HISTORY: DIABETES MELLITUS W FOOT ULCER-E13.621, NON PRESSURE CHRONIC ULCER-L97.509. TECHNIQUE: 2D digital imaging was performed. COMPARISON: CR XR FOOT RT COMPLETE from 06/13/2022 FINDINGS: 3 views No evidence of fracture or diastasis of the Lisfranc joint. Bone density normal. No osseous lesions nor erosions. No radiopaque foreign body. No pes planus. No inferior calcaneal spur. IMPRESSION: No significant osseous findings and no significant change compared to 06/13/2022. DATA REPOSITORY: RADIATION DOSE DELIVERED:
== END ==
PROVIDERS: Visit Provider Podiatrist Foot & Ankle Surgery
DX: E13.621 Other specified diabetes mellitus with foot ulcer (principal); S92.355A Nondisplaced fracture of fifth metatarsal bone, left foot, initial encounter for closed fracture; X58.XXXA Exposure to other specified factors, initial encounter
CPT/HCPCS: 73630

== ENCOUNTER 2022-07-15 17:58 | Outpatient (CLI) | payer MEDICARE, MEDICAID, SELFPAY ==
[2022-07-15 17:14] LABS: Abs Immature Grans 0.14 10^3/uL (0.0-0.06); Absolute Basophil Count 0.07 10^3/uL (0.0-0.2); Absolute Lymphocyte Count 4.37 10^3/uL (1.2-3.4); Basophils % 0.4; Eosinophils % 1.1; HCT 45.5 % (36.0-46.0); HGB 14.6 g/dL (11.2-15.7); Immature Grans % 0.8; Lymphocytes % 24.5; MCHC 32.1 % (32.0-36.0); MCV 78 fL (80-95); MPV 11.1 fL (8.0-11.0); Monocytes % 4.9; Neutrophils % 68.3; Platelet Count 251 10^3/uL (130-400); RBC 5.83 10^6/uL (3.93-5.22); RDW 14.4 % (11.7-14.6); RDW-SD 40.4 fL; WBC 17.82 10^3/uL (4.4-10.8)
[2022-07-15 17:15] LABS: Absolute Monocyte Count 0.87 10^3/uL (0.1-0.8); Absolute Neutrophil Count 12.17 10^3/uL (1.2-6.7)
[2022-07-15 17:17] LABS: ESR 37 mm/hr (0-20)
[2022-07-16 22:03] LABS: CRP, High Sensitivity >15.00 mg/L (See Note)
== END 2022-07-15 17:59 | disposition home or self-care (01) ==
LOC: LBO 17:59
PROVIDERS: Visit Provider Podiatrist Foot & Ankle Surgery
DX: E11.621 Type 2 diabetes mellitus with foot ulcer (principal); L97.511 Non-pressure chronic ulcer of other part of right foot limited to breakdown of skin; L97.521 Non-pressure chronic ulcer of other part of left foot limited to breakdown of skin; R70.0 Elevated erythrocyte sedimentation rate
CPT/HCPCS: 36415; 85652; 86141; 85025

== ENCOUNTER 2022-07-23 15:38 | Inpatient (IN) | payer MEDICARE, MEDICAID, SELFPAY ==
[2022-07-23 15:44] VITALS: BP 119/79; PULSE 88; RESP 20; TEMP 37; O2SAT 98
[2022-07-23 16:03] LABS: Bilirubin Negative (Negative); Blood Negative (Negative); Clarity Clear (Clear); Glucose Negative (Negative); Ketones Negative (Negative); Leukocyte Esterase Negative (Negative); Nitrite Negative (Negative); Urobilinogen 0.2 EU/dL (Up TO 0.2)
--- NOTE | 2022-07-23 16:11 | W.ED.GENAD ---
Discharge Plan Disposition Patient Disposition: [facility] INPATIENT Condition: Stable Discharge Details Chief Complaint: Orthopedic Clinical Impression: Diabetic infection of left foot Primary Care Provider: Unknown,Unknown ED Provider: Hussain Espinal Home Meds and New Rx's Prescriptions: No Action methadone 10 mg/mL concentrate 77 mg PO DAILY Label Comments: 77 mg albuterol sulfate [ProAir HFA] 90 mcg/actuation HFA aerosol inhaler 1 - 2 puff Inhalation Q4-6H PRN Qty: 1 1RF Rx Instructions: DISPENSE ALBUTEROL INHALER BRAND COVERED BY INSURANCE nystatin 100,000 unit/gram powder 1 applic Topical BID PRN (Reason: fungal skin infection) Qty: 30 3RF Rx Instructions: Apply powder to affected area under R breast twice daily valacyclovir 500 mg tablet 500 mg PO DAILY Qty: 90 3RF Rx Instructions: FOR SUPRESSION OF HSV sumatriptan succinate 25 mg tablet 25 mg PO ONCE PRN (Reason: migraine headache) Rx Instructions: Take 25 mg as needed for migraine, can repeat dose in 2 hours if needed. Not to exceed 200mg per day (pt often takes 100mg BID). lorazepam 0.5 mg tablet 0.5 mg PO BID PRN Latuda 40 mg tablet 40 mg PO DAILY Rx Instructions: must administer with food (at least 350 calories) alcohol swabs [Alcohol Pads] 1 EACH pads, medicated 1 ea Topical DAILY Qty: 100 (DME) blood-glucose meter [OneTouch Verio IQ Meter] 1 EACH kit 1 ea Miscellaneous QID Qty: 1 0RF Rx Instructions: E 11.329, E11.40 to test blood sugars 4xd,maintain HGB A1C less than 7 (DME) lancets 1 EACH misc 1 ea Miscellaneous QID Qty: 400 3RF Rx Instructions: Dx: E11.40 to maintain HbA1C less than 7% Please dispense lancets to use with Verio Glucometer hydroxyzine HCl 50 mg tablet 50 mg PO TID PRN Label Comments: note dated 10/27/18 [facility] Trudy Ray cgc dextroamphetamine-amphetamine [Adderall] 20 mg tablet 20 mg PO TID Label Comments: Trudy Campbell, ARCHIE 02/02/19 cgc (DME) pen needle, diabetic [BD Ultra-Fine Yamini Pen Needle] 32 gauge x needle 1 ea Miscellaneous QID Qty: 100 0RF Rx Instructions: Dx: E11.9 to maintain HbA1c less than 7% To administer Insulin Dispense BD ultra fine atorvastatin 10 mg tablet 10 mg PO QHS Qty: 90 0RF omeprazole 20 mg capsule,delayed release(DR/EC) 20 mg PO DAILY Qty: 90 0RF ondansetron 4 mg tablet,disintegrating 8 mg PO BID PRN (Reason: nausea and vomiting) Qty: 60 0RF acetaminophen 500 mg tablet 500 - 1,000 mg PO Q8H MDD 3000 mg PRN (Reason: fever or pain) Qty: 180 0RF Rx Instructions: 1 month supply ibuprofen 800 mg tablet 800 mg PO Q8H PRN (Reason: fever or pain) Qty: 30 0RF Rx Instructions: 1 month supply; take acetaminophen first, only take ibuprofen if acetaminophen doesn't work pregabalin 200 mg capsule 200 mg PO TID Qty: 270 0RF baclofen 10 mg tablet 10 mg PO TID PRN (Reason: muscle spasm) Qty: 30 0RF (DME) OneTouch Verio test strips Strip 1 ea Miscellaneous QID Qty: 120 0RF Rx Instructions: Dx: E11.9 to check blood glucose daily to maintain HbA1c less than 7%, pt on insulin, QID testing sulfamethoxazole-trimethoprim [Bactrim DS] 800-160 mg tablet 1 tab PO BID 10 Days Qty: 20 0RF metoclopramide HCl [Reglan] 10 mg tablet 10 mg PO Q6H PRNQty: 30 0RF Medical Decision Making 41 yo female with hx of dm, hld comes in with left foot redness and pain from Dr. Bolivar from podiatry's office. She has had pain and redness and swelling for over a week, saw Dr. Bolivar last week and had labs showing wbc of 17 and had a tunnelling lesion on her left plantar surface just proximal to the toes on the left and on the right a wound on her right plantar surface big toe. Xrays showed question of healing fractures though patient denies trauma and was told it could indicated osteo. She states her right foot has improved but has not had any improvement in her left foot despite being on bactrim and augmentin, followed up with Dr. Bolivar who referred her here for iv abx. She denies fevers or chills. She has the tunneling lesion on the plantar left foot that on probe does seem to reach the bone, and her foot is red and warm to touch. Her right foot is not red and not warm, no tunneling lesions. Suspect osteo, given recent xrays will defer until mri can be obtain, and also obtain cbc, cmp and cultures and treat with vanco and ceftriaxone labs show continued leukocytosis, elevated esr and crp, lactate less then 2 and procalcitonin less then 0.1. Mag low so repletion ordered. Will discuss with hospitalist about admission Differential Diagnosis Differential Diagnosis: osteo, diabetic foot infection Lab Data Lab results reviewed: Yes I reviewed the patient's lab results. HPI General Mode of arrival: ambulatory. Date/Time Provider Initiated Documentation: 07/23/22 15:39. Limitations to Documentation: no limitations. Information obtained by: patient. History of Present Illness 41 year old F presents to the emergency department with the chief complaint of left foot infection, described as moderate, Patient reports no radiation. Patient started experiencing this week(s) (1) and it has been constant. No relieving factors improve symptom(s), No exacerbating factors reported . Patient notes denies fever/chills. Patient did receive the following treatments prior to arrival, none Related Data Home Medications Medication Instructions Recorded Confirmed alcohol swabs (Alcohol Pads) 1 ea topical DAILY #100 ea 08/01/15 06/11/22 blood-glucose meter (OneTouch ##1 12/01/17 06/11/22 Verio IQ Meter) lancets 26 gauge #400 ea 12/04/17 06/11/22 hydroxyzine HCl 50 mg tablet 50 mg PO TID PRN 11/11/18 06/11/22 dextroamphetamine-amphetamine 20 20 mg PO TID 02/11/19 06/11/22 mg tablet (Adderall) methadone 10 mg/mL oral concentrate 77 mg PO DAILY 02/12/19 06/11/22 albuterol sulfate 90 mcg/actuation 1 - 2 puff inhalation Q4-6H PRN ##1 06/10/19 06/11/22 aerosol inhaler (ProAir HFA) nystatin 100,000 unit/gram topical 1 applic topical BID PRN fungal 06/10/19 06/11/22 powder skin infection #30 grams valacyclovir 500 mg tablet 500 mg PO DAILY #90 tab-caps 06/10/19 06/11/22 pen needle, diabetic 32 gauge x #100 ea 08/02/19 06/11/22 (BD Ultra-Fine Yamini Pen Needle) atorvastatin 10 mg tablet 10 mg PO QHS #90 tabs 09/03/19 06/11/22 omeprazole 20 mg capsule,delayed 20 mg PO DAILY #90 tab-caps 09/03/19 06/11/22 release ondansetron 4 mg disintegrating 8 mg PO BID PRN nausea and 09/06/19 06/11/22 tablet vomiting #60 tab-caps acetaminophen 500 mg tablet 500 - 1,000 mg PO Q8H PRN fever or 09/24/19 06/11/22 pain #180 tab-caps ibuprofen 800 mg tablet 800 mg PO Q8H PRN fever or pain 09/24/19 06/11/22 #30 tab-caps pregabalin 200 mg capsule 200 mg PO TID #270 tab-caps 09/24/19 06/11/22 baclofen 10 mg tablet 10 mg PO TID PRN muscle spasm #30 09/30/19 06/11/22 tab-caps blood sugar diagnostic (OneTouch #120 strips 11/24/19 06/11/22 Verio test strips) metoclopramide HCl 10 mg tablet 10 mg PO Q6H PRN #30 tabs 05/24/22 06/11/22 (Reglan) lorazepam 0.5 mg tablet 0.5 mg PO BID PRN 07/15/22 lurasidone 40 mg tablet (Latuda) 40 mg PO DAILY 07/15/22 sumatriptan succinate 25 mg tablet 25 mg PO ONCE PRN migraine headache 07/15/22 sulfamethoxazole 800 1 tab PO BID 10 days #20 tabs 07/17/22 mg-trimethoprim 160 mg tablet (Bactrim DS) Previous Rx's Medication Instructions Recorded blood-glucose meter (OneTouch ##1 12/01/17 Verio IQ Meter) lancets 26 gauge #400 ea 12/04/17 albuterol sulfate 90 mcg/actuation 1 - 2 puff inhalation Q4-6H PRN ##1 06/10/19 aerosol inhaler (ProAir HFA) nystatin 100,000 unit/gram topical 1 applic topical BID PRN fungal 06/10/19 powder skin infection #30 grams valacyclovir 500 mg tablet 500 mg PO DAILY #90 tab-caps 06/10/19 pen needle, diabetic 32 gauge x #100 ea 08/02/19 (BD Ultra-Fine Yamini Pen Needle) atorvastatin 10 mg tablet 10 mg PO QHS #90 tabs 09/03/19 omeprazole 20 mg capsule,delayed 20 mg PO DAILY #90 tab-caps 09/03/19 release ondansetron 4 mg disintegrating 8 mg PO BID PRN nausea and 09/06/19 tablet vomiting #60 tab-caps acetaminophen 500 mg tablet 500 - 1,000 mg PO Q8H PRN fever or 09/24/19 pain #180 tab-caps ibuprofen 800 mg tablet 800 mg PO Q8H PRN fever or pain 09/24/19 #30 tab-caps pregabalin 200 mg capsule 200 mg PO TID #270 tab-caps 09/24/19 baclofen 10 mg tablet 10 mg PO TID PRN muscle spasm #30 09/30/19 tab-caps blood sugar diagnostic (OneTouch #120 strips 11/24/19 Verio test strips) metoclopramide HCl 10 mg tablet 10 mg PO Q6H PRN #30 tabs 05/24/22 (Reglan) sulfamethoxazole 800 1 tab PO BID 10 days #20 tabs 07/17/22 mg-trimethoprim 160 mg tablet (Bactrim DS) Allergies Allergy/AdvReac Type Severity Reaction Status Date / Time Penicillins Allergy Severe lip and Unverified 07/23/22 14:41 facial swelling lamotrigine [From Lamictal] Allergy Unknown Skin Rash Verified 07/23/22 14:41 clindamycin Allergy Verified 07/23/22 14:41 aspirin AdvReac Intermediate nausea/pain Unverified 07/23/22 14:41 General Stated Complaint: Orthopedic CARLOS: 4 Review of Systems All systems reviewed & are unremarkable except as noted in HPI and below Constitutional Constitutional: Denies chills, Denies fever(s) and Denies weakness Cardiovascular Cardiovascular: Denies chest pain and Denies dyspnea Respiratory Respiratory: Denies cough and Denies dyspnea Gastrointestinal Gastrointestinal: Denies abdominal pain, Denies nausea and Denies vomiting Neurologic Neurologic: Denies weakness PFSH All Active Problems (Updated 07/23/22 @ 17:12 by Hussain Espinal MD) Diabetic infection of left foot (Acute) Infection of left foot (Acute) Ulcer of foot due to secondary diabetes (Acute) Asthma (Chronic) Umbilical hernia (Chronic 03/11/18) [facility] 03/17/18 [facility] Type 2 diabetes mellitus with diabetic neuropathy (Chronic 02/18/14) w/ neuropathy mild retinopathy Left 01/16/16 Tobacco use disorder (Chronic) Started smoking age 9 Slow transit constipation (Chronic) [facility] 03/17/18 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) JAD/BSO in late 20s, no HRT Poorly controlled type 2 diabetes mellitus (Chronic 03/23/18) Polypharmacy (Chronic 12/14/15) Opioid dependence (Chronic 10/31/14) Methadone clinic Mild nonproliferative diabetic retinopathy associated with type 2 diabetes mellitus (Chronic 01/22/16) Migraine without status migrainosus, not intractable (Chronic) Mental health disorder (Chronic) Pt reports being diagnosed with bipolar disorder, disassociative disorder, anxiety, & multiple personality disorder Hypomagnesemia (Chronic 09/30/16) Hyperlipidemia (Chronic 09/30/16) 10-year ASCVD risk = unable to calculate due to not being age 40+ however dx T2DM, so Rx for statin 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 Jimenez [facility] Fatty liver (Chronic 12/18/15) Dyspareunia in female (Chronic 07/09/17) Depressive disorder (Chronic 10/31/14) ADMISSION SUICIDAL THOUGHTS 06/13/14 OD ATTEMPTS IN PAST Chronic nausea (Chronic) EGD 04/16/16 Dr. Ferrer; multifactoral: gastroparesis, constipation, hyperglycemia, methadone Chronic fatigue (Chronic 07/19/15) Atrophic vaginitis (Chronic 07/09/17) Adult BMI > 30 (Chronic) Abnormal liver function tests (Chronic 12/18/15) Medical History (Updated 07/23/22 @ 17:12 by Hussain Espinal MD) Cellulitis of left breast Gastroparesis Genital herpes Take daily suppression. Hepatitis C History of substance abuse Opiates, THC HLD (hyperlipidemia) Mental health disorder Tobacco use disorder Type 2 diabetes mellitus Vulvovaginal candidiasis Surgical History section (~2003) EGD (04/16/16) Dr. Ferrer Hysterectomy, Vaginal w/ BSO (~2006) Family History Mother Substance abuse Alcohol abuse Father Substance abuse Alcohol abuse Grandmother Neoplasm Colorectal CA (pt believes d'xed <50 y/o) Social History Smoking/Tobacco Use Status: Current every day Tobacco Type: cigarettes Smoking packs per day: 1 Smoking cigarettes per day: 20.0 Tobacco: How many years used: 27 Smoking risk assessment performed?: Yes Alcohol Intake: never Drug use: Current Sobriety Substance use type: does not use Adopted: No Caregiver/Support person: No Foster care: Yes Housing: apartment Number of Children: 2 Communication Needs: None Pets and animals: Yes Pets and animals: dog(s) Sexually active: No Current gender identity: female What type of physical activity do you participate in: walking Duration: 30-45 minutes/day Frequency: daily Do you feel safe at home: Yes Do you feel safe in your relationship?: Yes Exam Const General: no acute distress Orientation: alert HENMT Head: normal to inspection Ears: external ears normal General nose exam: external nose normal Mouth: moist mucous membranes Eyes General: appearance normal, both eyes and all related structures Neck Neck: normal visual inspection Resp Effort & Inspection: normal respiratory effort and able to speak in complete sentences Cardio Rate: regular rate Skin General skin exam: elasticity normal Neuro General: patient alert and patient oriented x3 Extrem General: full ROM Psych Mental Status: mental status grossly normal Course Vital Signs Vital signs: Vital Signs Temperature 37.0 C 07/23/22 15:44 Pulse 88 07/23/22 15:44 Respiratory Rate 20 07/23/22 15:44 Blood Pressure 119/79 07/23/22 15:44 Pulse Oximetry 98 07/23/22 15:44 Temperature 37.0 C 07/23/22 15:44 Temperature Source Temporal Artery Scan 07/23/22 15:44 Pulse 88 07/23/22 15:44 Respiratory Rate 20 07/23/22 15:44 Blood Pressure 119/79 07/23/22 15:44 Blood Pressure Position Sitting 07/23/22 15:44 Pulse Oximetry 98 07/23/22 15:44 Oxygen Delivery Method Room Air 07/23/22 15:44 Oxygen Flow Rate 0 07/23/22 15:44 Pain Level 8 07/23/22 15:44 Lab/Test Results Lab/Test Results: 07/23/22 15:44 Blood Blood Culture - Pending 07/23/22 15:44 Blood Blood Culture - Pending Laboratory Tests Range/Units 07/23/22 15:55 Urine Color (Yellow) Yellow Urine Clarity (Clear) Clear Urine pH (5-8) 7.0 Ur Specific [place] (1.005-1.025) 1.020 Urine Protein (Negative) mg/dL Negative Urine Ketones (Negative) mg/dL Negative Urine Blood (Negative) Negative Urine Nitrite (Negative) Negative Urine Bilirubin (Negative) Negative Urine Urobilinogen (Up TO 0.2) EU/dL 0.2 Ur Leukocyte Esterase (Negative) Negative Urine Glucose (Negative) mg/dL Negative
[2022-07-23 16:27] LABS: BE (Venous) 4 mmol/L (-2-3); HCO3 (Venous) 29 mmol/L (23-28); O2 Sat (Venous) 88 %; TCO2 (Venous) 26 mmol/L (24-29); pCO2 (Venous) 52 mmHg (41-51); pH (Venous) 7.35 (7.31-7.41); pO2 (Venous) 54 mmHg
[2022-07-23 16:27] LABS: Source Nasal/Nares
[2022-07-23 16:28] LABS: ESR 54 mm/hr (0-20); Lactate 1.8 mmol/L (0.6-1.4)
[2022-07-23 16:30] LABS: Abs Immature Grans 0.12 10^3/uL (0.0-0.06); Absolute Basophil Count 0.04 10^3/uL (0.0-0.2); Absolute Eosinophil Count 0.16 10^3/uL (0.0-0.7); Absolute Lymphocyte Count 3.21 10^3/uL (1.2-3.4); Absolute Monocyte Count 0.77 10^3/uL (0.1-0.8); Absolute Neutrophil Count 7.98 10^3/uL (1.2-6.7); Basophils % 0.3; Eosinophils % 1.3; HCT 42.7 % (36.0-46.0); HGB 13.9 g/dL (11.2-15.7); Lymphocytes % 26.1; MCH 25.1 pg (27.0-33.0); MCHC 32.6 % (32.0-36.0); MCV 77 fL (80-95); MPV 11.5 fL (8.0-11.0); Monocytes % 6.3; Platelet Count 261 10^3/uL (130-400); RBC 5.53 10^6/uL (3.93-5.22); RDW 14.9 % (11.7-14.6); RDW-SD 41.5 fL; WBC 12.28 10^3/uL (4.4-10.8)
[2022-07-23 16:51] LABS: ALT 14 U/L (14-59); AST 18 U/L (15-37); Albumin 3.4 g/dL (3.4-5.0); Alkaline Phosphatase 150 U/L (46-116); Anion Gap 6.8 mmol/L (3-11); BUN 15 mg/dL (7-18); Bilirubin, Total 0.2 mg/dL (0.2-1.0); C-Reactive Protein 6.28 mg/dL (0.0-0.3); CO2 29.2 mmol/L (21.0-32.0); Calcium 9.6 mg/dL (8.5-10.1); Chloride 98 mmol/L (98-107); Estimated GFR 71.69 (mL/min/1.73m2); Glucose 222 mg/dL (74-106); Magnesium 1.5 mg/dL (1.8-2.4); Potassium 4.5 mmol/L (3.5-5.1); Sodium 134 mmol/L (136-145); Total Protein 7.8 g/dL (6.4-8.2)
[2022-07-23] MEDS: Normal Saline 1,000 ML 1000 ML IV (16:56)
[2022-07-23 17:00] LABS: COVID-19 PCR Negative (Negative)
[2022-07-23 17:00] LABS: Procalcitonin < 0.1 ng/mL
[2022-07-23] MEDS: cefTRIAXone 1 GM/50 ML BAG IVPB ×2 (17:16→20:07)
[2022-07-23] MEDS: VANCOMYCIN 1,000 MG in Normal Saline 250 ML 166.6666 MG IVPB (17:35)
[2022-07-23] MEDS: MAGNESIUM SULFATE 2 GM/50 ML BAG IVPB (17:53)
[2022-07-23] MEDS: MORPHine 4 MG/ML SYR IVP (18:09)
[2022-07-23 18:26] VITALS: BP 138/87; PULSE 75; RESP 18; TEMP 37.1; O2SAT 99
[2022-07-23 18:44] VITALS: BP 138/87; PULSE 75; RESP 14; O2SAT 99
[2022-07-23 18:46] VITALS: BP 138/87; PULSE 75; RESP 14; TEMP 37.1; O2SAT 99
--- NOTE | 2022-07-23 19:22 | HPE_ITS ---
Date of service: 07/23/22 Time of Service: 19:22 Assessment and Plan Assessment and plan (1) Diabetic infection of left foot: Status: Acute Assessment and plan: blood cultures taken while in the ER but doubt that they will grow anything as patient has been on oral antibiotics as outpatient w/ declining CRP and WBC. Patient was begun on high dose Rocephin and Vancomycin in the ED. Will continue the same although Rocephin is not the best coverage for Pseudomonas, nevertheless her inflammatory markers are declining. She should have MRI of her foot and if this shows osteomyelitis then bone bx would be indicated. She will probably need 4 to 6 weeks of effective antibiotics w/ at least 4 weeks being parenteral antibiotics. I will consult her mold filler and drainer in the morning to see her. 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 check MRI of her foot and consult podiatry. broad spectrum antibiotics as above. History of Present Illness History of Present Illness Chief Complaint: left foot pain Narrative: 41 yr old female w/ hx of DM2 x 5 yrs (treated w/ Ozempic and Humalog; previously was on Tresiba). She has had diabetic neuropathy treated w/ Lyrica and has suffered from recurrent diabetic foot/toe ulcers. Her most current ulcer is at the base of the 4th right MTP on plantar surface and has been present for about one month. She says that it had been draining pus and she has been on antibiotics off and on over the past month w/ the most recent regimen including Augmentin and Bactrim x one week. She saw her mold filler and drainer today who sent her to the ED for evaluation. X-rays of her left foot from 07/15 reportedly demonstrate non-displaced healing fracture of the head of the 5th metatarsal and healed fracture of the mid shaft of the proximal phalanx of the 4th toe. The wound over the plantar surface of the foot is not draining any purulent material. It is suspected that she has osteomyelitis. Patient is admitted for iv antibiotics and MRI of her left foot. Labs from the ER include WBC of 12,000 which is down from 17,800 on 07/15. CRP is elevated at 6.28 which is also lower than her level of >15 on 07/15. Patient is a smoker of 1 ppd since age of 10 but denies any hx of vascular disease, CVA or UT. Her DM is complicated by peripheral neuropathy. Review of Systems Constitutional Constitutional: Reports as per HPI, Denies chills and Denies fever(s) Cardiovascular Cardiovascular: Reports system reviewed and no additional complaints, except as documented Respiratory Respiratory: Reports system reviewed and no additional complaints, except as documented Gastrointestinal Gastrointestinal: Reports system reviewed and no additional complaints, except as documented Musculoskeletal Musculoskeletal: Reports system reviewed and no additional complaints, except as documented Integumentary/Breasts Skin/Breast: Reports as per HPI, Reports sores and Reports wounds Neurologic Neurologic: Reports paresthesias (both feet) Endocrine Endocrine: Reports as per HPI Hematologic/Lymphatic Hematologic/Lymphatic: Reports system reviewed and no additional complaints, except as documented PFSH All Active Problems (Updated 07/23/22 @ 20:01 by Scott Ramos MD) Diabetic infection of left foot (Acute) Infection of left foot (Acute) Ulcer of foot due to secondary diabetes (Acute) Asthma (Chronic) Umbilical hernia (Chronic 03/11/18) LR GI 03/17/18 RH Type 2 diabetes mellitus with diabetic neuropathy (Chronic 02/18/14) w/ neuropathy mild retinopathy Left 01/16/16 Tobacco use disorder (Chronic) Started smoking age 9 Slow transit constipation (Chronic) LR GI 03/17/18 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) JAD/BSO in late 20s, no HRT Poorly controlled type 2 diabetes mellitus (Chronic 03/23/18) Polypharmacy (Chronic 12/14/15) Opioid dependence (Chronic 10/31/14) Methadone clinic Mild nonproliferative diabetic retinopathy associated with type 2 diabetes mellitus (Chronic 01/22/16) Migraine without status migrainosus, not intractable (Chronic) Mental health disorder (Chronic) Pt reports being diagnosed with bipolar disorder, disassociative disorder, anxiety, & multiple personality disorder Hypomagnesemia (Chronic 09/30/16) Hyperlipidemia (Chronic 09/30/16) 10-year ASCVD risk = unable to calculate due to not being age 40+ however dx T2DM, so Rx for statin 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 Jimenez [facility] Fatty liver (Chronic 12/18/15) Dyspareunia in female (Chronic 07/09/17) Depressive disorder (Chronic 10/31/14) ADMISSION SUICIDAL THOUGHTS 06/13/14 OD ATTEMPTS IN PAST Chronic nausea (Chronic) EGD 04/16/16 Dr. Ferrer; multifactoral: gastroparesis, constipation, hyperglycemia, methadone Chronic fatigue (Chronic 07/19/15) Atrophic vaginitis (Chronic 07/09/17) Adult BMI > 30 (Chronic) Abnormal liver function tests (Chronic 12/18/15) Medical History (Updated 07/23/22 @ 20:01 by Scott Ramos MD) Cellulitis of left breast Gastroparesis Genital herpes Take daily suppression. Hepatitis C History of substance abuse Opiates, THC HLD (hyperlipidemia) Mental health disorder Tobacco use disorder Type 2 diabetes mellitus Vulvovaginal candidiasis Surgical History section (~2003) EGD (04/16/16) Dr. Ferrer Hysterectomy, Vaginal w/ BSO (~2006) Family History Mother Substance abuse Alcohol abuse Father Substance abuse Alcohol abuse Grandmother Neoplasm Colorectal CA (pt believes d'xed <50 y/o) Social History Smoking/Tobacco Use Status: Current every day Tobacco Type: cigarettes Smoking packs per day: 1 Smoking cigarettes per day: 20.0 Tobacco: How many years used: 27 Smoking risk assessment performed?: Yes Alcohol Intake: never Drug use: Current Sobriety Substance use type: does not use Adopted: No Caregiver/Support person: No Foster care: Yes Housing: apartment Number of Children: 2 Communication Needs: None Pets and animals: Yes Pets and animals: dog(s) Sexually active: No Current gender identity: female What type of physical activity do you participate in: walking Duration: 30-45 minutes/day Frequency: daily Do you feel safe at home: Yes Do you feel safe in your relationship?: Yes Meds Allergies and Home Medications Allergies Allergy/AdvReac Type Severity Reaction Status Date / Time Penicillins Allergy Severe lip and Unverified 07/23/22 14:41 facial swelling lamotrigine [From Lamictal] Allergy Unknown Skin Rash Verified 07/23/22 14:41 clindamycin Allergy Verified 07/23/22 14:41 aspirin AdvReac Intermediate nausea/pain Unverified 07/23/22 14:41 Home Medications Medication Instructions Recorded Confirmed Type alcohol swabs (Alcohol Pads) 1 ea topical DAILY #100 ea 08/01/15 07/23/22 History blood-glucose meter ([employer] ##1 12/01/17 07/23/22 Rx Verio IQ Meter) lancets 26 gauge #400 ea 12/04/17 07/23/22 Rx hydroxyzine HCl 50 mg tablet 50 mg PO TID PRN 11/11/18 07/23/22 History dextroamphetamine-amphetamine 20 20 mg PO TID 02/11/19 07/23/22 History mg tablet (Adderall) methadone 10 mg/mL oral concentrate 77 mg PO DAILY 02/12/19 07/23/22 History albuterol sulfate 90 mcg/actuation 1 - 2 puff inhalation Q4-6H PRN ##1 06/10/19 07/23/22 Rx aerosol inhaler (ProAir HFA) nystatin 100,000 unit/gram topical 1 applic topical BID PRN fungal 06/10/19 06/11/22 Rx powder skin infection #30 grams valacyclovir 500 mg tablet 500 mg PO DAILY #90 tab-caps 06/10/19 06/11/22 Rx pen needle, diabetic 32 gauge x #100 ea 08/02/19 07/23/22 Rx 5/32 (BD Ultra-Fine Yamini Pen Needle) atorvastatin 10 mg tablet 10 mg PO QHS #90 tabs 09/03/19 07/23/22 Rx omeprazole 20 mg capsule,delayed 20 mg PO DAILY #90 tab-caps 09/03/19 07/23/22 Rx release ondansetron 4 mg disintegrating 8 mg PO BID PRN nausea and 09/06/19 07/23/22 Rx tablet vomiting #60 tab-caps acetaminophen 500 mg tablet 500 - 1,000 mg PO Q8H PRN fever or 09/24/19 07/23/22 Rx pain #180 tab-caps ibuprofen 800 mg tablet 800 mg PO Q8H PRN fever or pain 09/24/19 07/23/22 Rx #30 tab-caps pregabalin 200 mg capsule 200 mg PO TID #270 tab-caps 09/24/19 07/23/22 Rx baclofen 10 mg tablet 10 mg PO TID PRN muscle spasm #30 09/30/19 07/23/22 Rx tab-caps blood sugar diagnostic (OneTouch #120 strips 11/24/19 07/23/22 Rx Verio test strips) metoclopramide HCl 10 mg tablet 10 mg PO Q6H PRN #30 tabs 05/24/22 07/23/22 Rx (Reglan) lorazepam 0.5 mg tablet 0.5 mg PO BID PRN 07/15/22 07/23/22 History lurasidone 40 mg tablet (Latuda) 40 mg PO DAILY 07/15/22 07/23/22 History sumatriptan succinate 25 mg tablet 100 mg PO ONCE PRN migraine 07/15/22 History headache sulfamethoxazole 800 1 tab PO BID 10 days #20 tabs 07/17/22 Rx mg-trimethoprim 160 mg tablet (Bactrim DS) Exam Narrative Exam Narrative: Obese white female sitting up in her bed she is alert and oriented person place time circumstance. HEENT is remarkable for being edentulous oropharynx without exudate, sclera anicteric, EOMI Neck supple nontender no JVD normal carotid pulses no bruits Lungs with few end expiratory wheezes no rhonchi or rales Heart is regular rate and rhythm no murmur rub or gallop Abdomen obese soft nontender Lower extremities left foot has a 1 to 1.5 cm ulcer on the plantar surface of the fourth MTP joint with no purulent drainage there is blanching the skin around the ulcer, she has decreased sensation to light touch were both feet. She has some maceration at the tip of the right great toe. She has some healed ulcer sites over the medial aspect of the base of the left great toe. Pedal pulses are intact Results Labs Result diagrams: 07/23/22 16:10 07/23/22 16:10 Labs: Laboratory Results - last 24 hr 07/23/22 07/23/22 07/23/22 15:55 16:10 16:10 WBC RBC Hgb Hct MCV MCH MCHC RDW Plt Count MPV Immature Gran % Neutrophils % Lymphocytes % Monocytes % Eosinophils % Basophils % Nucleated RBC % Absolute Neutrophils Absolute Lymphocytes Absolute Monocytes Absolute Eosinophils Absolute Basophils ESR VBG pH VBG pCO2 VBG pO2 VBG HCO3 VBG Total CO2 VBG O2 Saturation VBG Base Excess VBG Lactate 1.8 H Sodium 134 L Potassium 4.5 Chloride 98 Carbon Dioxide 29.2 Anion Gap 6.8 BUN 15 Creatinine 1.0 Est GFR (CKD-EPI 2020) 71.69 Glucose 222 H Calcium 9.6 Magnesium 1.5 L Total Bilirubin 0.2 AST 18 ALT 14 Alkaline Phosphatase 150 H C-Reactive Protein 6.28 H Total Protein 7.8 Albumin 3.4 Procalcitonin < 0.1 Urine Color Yellow Urine Clarity Clear Urine pH 7.0 Ur Specific Wilson 1.020 Urine Protein Negative Urine Ketones Negative Urine Blood Negative Urine Nitrite Negative Urine Bilirubin Negative Urine Urobilinogen 0.2 Ur Leukocyte Esterase Negative Urine Glucose Negative COVID-19 Source SARS-CoV-2 (PCR) 07/23/22 07/23/22 07/23/22 16:10 16:10 16:10 WBC 12.28 H RBC 5.53 H Hgb 13.9 Hct 42.7 MCV 77 L MCH 25.1 L MCHC 32.6 RDW 14.9 H Plt Count 261 MPV 11.5 H Immature Gran % 1.0 Neutrophils % 65.0 Lymphocytes % 26.1 Monocytes % 6.3 Eosinophils % 1.3 Basophils % 0.3 Nucleated RBC % 0.0 Absolute Neutrophils 7.98 H Absolute Lymphocytes 3.21 Absolute Monocytes 0.77 Absolute Eosinophils 0.16 Absolute Basophils 0.04 ESR 54 H VBG pH 7.35 VBG pCO2 52 H VBG pO2 54 VBG HCO3 29 H VBG Total CO2 26 VBG O2 Saturation 88 VBG Base Excess 4 H VBG Lactate Sodium Potassium Chloride Carbon Dioxide Anion Gap BUN Creatinine Est GFR (CKD-EPI 2020) Glucose Calcium Magnesium Total Bilirubin AST ALT Alkaline Phosphatase C-Reactive Protein Total Protein Albumin Procalcitonin Urine Color Urine Clarity Urine pH Ur Specific Wilson Urine Protein Urine Ketones Urine Blood Urine Nitrite Urine Bilirubin Urine Urobilinogen Ur Leukocyte Esterase Urine Glucose COVID-19 Source SARS-CoV-2 (PCR) 07/23/22 16:13 WBC RBC Hgb Hct MCV MCH MCHC RDW Plt Count MPV Immature Gran % Neutrophils % Lymphocytes % Monocytes % Eosinophils % Basophils % Nucleated RBC % Absolute Neutrophils Absolute Lymphocytes Absolute Monocytes Absolute Eosinophils Absolute Basophils ESR VBG pH VBG pCO2 VBG pO2 VBG HCO3 VBG Total CO2 VBG O2 Saturation VBG Base Excess VBG Lactate Sodium Potassium Chloride Carbon Dioxide Anion Gap BUN Creatinine Est GFR (CKD-EPI 2020) Glucose Calcium Magnesium Total Bilirubin AST ALT Alkaline Phosphatase C-Reactive Protein Total Protein Albumin Procalcitonin Urine Color Urine Clarity Urine pH Ur Specific Wilson Urine Protein Urine Ketones Urine Blood Urine Nitrite Urine Bilirubin Urine Urobilinogen Ur Leukocyte Esterase Urine Glucose COVID-19 Source Nasal/Nares SARS-CoV-2 (PCR) Negative Last Vital Signs Temp 37.1 C 07/23/22 18:46 Pulse 75 07/23/22 18:46 Resp 14 07/23/22 18:46 BP 138/87 07/23/22 18:46 Pulse Ox 99 07/23/22 18:46
[2022-07-23 20:03] VITALS: BP 135/87; PULSE 75; RESP 18; TEMP 36.7; O2SAT 98
[2022-07-23] MEDS: Pregabalin 100 MG CAP 200 MG PO (20:06)
[2022-07-23] MEDS: Amphet Asp/Amphet/D-Amphet 10 MG TAB 20 MG PO (20:06)
[2022-07-23] MEDS: Ketorolac 30 MG/ML VIAL IVP (20:06)
[2022-07-23] MEDS: Nicotine 21 MG/24 HR PATCH TD (20:07)
[2022-07-23] MEDS: Normal Saline Flush 10 ML SYR IVP (20:08)
[2022-07-23] MEDS: Atorvastatin 10 MG TAB PO (21:42)
[2022-07-23] MEDS: LORazepam 0.5 MG TAB PO (21:42)
[2022-07-23] MEDS: Insulin Aspart 300 UNITS/3 ML PEN SC (21:42)
[2022-07-23 23:30] VITALS: BP 142/84; PULSE 71; RESP 16; TEMP 36.9; O2SAT 92
[2022-07-24] MEDS: Ketorolac 15 MG/ML VIAL IVP ×3 (01:52→16:02)
[2022-07-24] MEDS: Ondansetron O.D.T. 4 MG TABEF 8 MG PO (02:44)
[2022-07-24] MEDS: oxyCODONE 5 MG TAB PO ×3 (06:16→21:03)
[2022-07-24 07:17] VITALS: BP 139/88; PULSE 67; RESP 17; TEMP 36.5; O2SAT 99
[2022-07-24 07:33] LABS: Hemoglobin A1C 9.8 % (<5.7)
[2022-07-24] MEDS: Metoclopramide 10 MG TAB PO (07:59)
[2022-07-24] MEDS: Normal Saline Flush 10 ML SYR IVP ×5 (07:59→19:54)
[2022-07-24] MEDS: Pregabalin 100 MG CAP 200 MG PO ×3 (08:09→19:54)
[2022-07-24] MEDS: Amphet Asp/Amphet/D-Amphet 10 MG TAB 20 MG PO ×3 (08:10→19:54)
[2022-07-24] MEDS: Omeprazole 20 MG CAPCR PO (08:10)
[2022-07-24] MEDS: Methadone Liquid 10 MG/ML 77 MG PO (09:06)
[2022-07-24] MEDS: Insulin Aspart 300 UNITS/3 ML PEN SC ×7 (09:07→21:58)
[2022-07-24] MEDS: VANCOMYCIN/WATER (PEG) 1.25 GM/250 ML BAG IVPB (09:09)
[2022-07-24] MEDS: Nicotine 21 MG/24 HR PATCH TD (09:49)
--- NOTE | 2022-07-24 09:50 | INITIAL_ITS ---
- If Service Date Differs Date of service: 07/24/22 Time of Service: 09:50 Care Management Initial Assess REASON FOR HOSPITALIZATION:: Diabetic infection of left foot PAST MEDICAL HISTORY/PAST SURGICAL HISTORY:: All Active Problems (Updated 07/23/22 @ 20:01 by Scott Ramos MD). Diabetic infection of left foot (Acute). Infection of left foot (Acute). Ulcer of foot due to secondary diabetes (Acute). Asthma (Chronic). Umbilical hernia (Chronic 03/11/18). [facility] GI 03/17/18 RH. Type 2 diabetes mellitus with diabetic neuropathy (Chronic 02/18/14). w/ neuropathy. mild retinopathy Left 01/16/16. Tobacco use disorder (Chronic). Started smoking age 9. Slow transit constipation (Chronic). [facility] GI 03/17/18. 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). JAD/BSO in late 20s, no HRT. Poorly controlled type 2 diabetes mellitus (Chronic 03/23/18). Polypharmacy (Chronic 12/14/15). Opioid dependence (Chronic 10/31/14). Methadone clinic. Mild nonproliferative diabetic retinopathy associated with type 2 diabetes mellitus (Chronic 01/22/16). Migraine without status migrainosus, not intractable (Chronic). Mental health disorder (Chronic). Pt reports being diagnosed with bipolar disorder, disassociative disorder, anxiety, & multiple personality disorder. Hypomagnesemia (Chronic 09/30/16). Hyperlipidemia (Chronic 09/30/16). 10-year ASCVD risk = unable to calculate due to not being age 40+ however dx T2DM, so Rx for statin. HSV-1 (herpes simplex virus 1) infection (Chronic 03/12/17). Takes daily suppression. Gastroparesis (Chronic 06/28/16). 03/17/[address] Jimenez [facility]. Fatty liver (Chronic 12/18/15). Dyspareunia in female (Chronic 07/09/17). Depressive disorder (Chronic 10/31/14). ADMISSION SUICIDAL THOUGHTS 06/13/14. OD ATTEMPTS IN PAST. Chronic nausea (Chronic). EGD 04/16/16 Dr. Ferrer; multifactoral: gastroparesis, constipation, hyperglycemia, methadone. Chronic fatigue (Chronic 07/19/15). Atrophic vaginitis (Chronic 07/09/17). Adult BMI > 30 (Chronic). Abnormal liver function tests (Chronic 12/18/15). Medical History (Updated 07/23/22 @ 20:01 by Scott Ramos MD). Cellulitis of left breast. Gastroparesis. Genital herpes. Take daily suppression. Hepatitis C. History of substance abuse. Opiates, THC. HLD (hyperlipidemia). Mental health disorder. Tobacco use disorder. Type 2 diabetes mellitus. Vulvovaginal candidiasis. Surgical History . section (~2003). EGD (04/16/16). Dr. Ferrer. Hysterectomy, Vaginal w/ BSO (~2006) PREVIOUS FUNCTIONAL STATUS/SOCIAL/FAMILY SUPPORTS:: Denise lives in [place] with her Maxi. Denise is unemployed and does not drive. 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 Denise is independent with her ADL's at baseline. Denise's last PCP was in [place] and she is looking to establish care locally. CURRENT FUNCTIONAL STATUS:: Denise is sitting up in bed visiting with her when CM met with her. She is alert, oriented and easy to engage in conversation. Denise shares that she does not currently have a PCP in the area but has paperwork for [facility]. ot home. Her is pl anning on dropping the paperwork off tomorrow so CM can try to help her fill it out. ADVANCE DIRECTIVES:: None on file, CM will offer forms. Has patient been provided with info about the portal/API?: Yes Did the patient sign up for the portal?: No CODE STATUS:: Full Code INSURANCE COVERAGE / FINANCIAL ISSUES:: AARP. Medicaid. Medicare PRIMARY CARE PHYSICIAN:: None, T-doc is Dr. Sánchez. Patient is in the process of establishing care with [facility]. POTENTIAL DISCHARGE NEEDS:: Follow up appointment using Tdoc schedule (Dr. Sánchez). Follow up with Podiatry. Diabetic Education. Referral to [facility]- close community follow up and case management PATIENT/FAMILY EDUCATION NEEDS:: Review discharge instructions, limitations, medications and plan to follow up with community providers. Discuss ask me three and goals of self care. TRANSPORTATION:: Via private vehicle with PLAN:: Anticipate Denise will discharge home via private vehicle with her when medically ready. Denise will follow up with Tdoc provider, Dr. Sánchez. Per pt, she is in the process of filling out paperwork for [facility]. Denise will follow up with Podiatry and need close community follow up for her uncontrolled Diabetes. will offer a referral to [facility] for community case management.
[2022-07-24] MEDS: diazePAM 2 MG TAB PO (10:40)
[2022-07-24] MEDS: valACYclovir 500 MG TAB PO (10:46)
[2022-07-24] MEDS: Gadoterate meglumine 20 ML SYRINGE IVP (11:33)
--- NOTE | 2022-07-24 12:10 | DI.MRI_ITS ---
Exam(s) MR LOWER EXTREMITY LT WO/W CLINICAL HISTORY: osteomyelitis left foot. TECHNIQUE: Multiplanar multisequence MRI was performed. CONTRAST MATERIAL: IV Contrast: 19 mL of Dotarem contrast administered. COMPARISON: Plain films 15 July 2022 FINDINGS: Exam somewhat limited by motion. BONES/JOINTS: Edema on both sides of fracture of the 4th proximal phalanx.. Mild edema at 5th metata rsal head in area of fracture. Focal area of high signal in distal shaft of 5th metatarsal which joel ws post costal contrast enhancement, suspicious for osteomyelitis. Mild enhancement at the head of t he 5th metatarsal which could be secondary to fracture healing or osteomyelitis. Enhancement at the fracture of the 4th proximal phalanx, also nonspecific, could be secondary to yearly in or osteomyeli tis. SOFT TISSUES: Gauze at plantar aspect of ball of foot. Air bubbles and soft tissue wound. Significa nt skin edema and thickening. Dorsal edema also present. No focal drainable collection. IMPRESSION: Focus high signal with contrast enhancement in the distal shaft of the 5th metatarsal, suspicious for osteomyelitis. Fractures of the 5th metatarsal head and 4th proximal phalanx. DATA REPOSITORY:
[2022-07-24] MEDS: LORazepam 0.5 MG TAB PO ×2 (12:45→16:05)
[2022-07-24 15:00] VITALS: BP 133/85; PULSE 72; RESP 17; TEMP 36.7; O2SAT 95
--- NOTE | 2022-07-24 15:06 | W.PM.PROGNOT ---
Date of Service Date of service: 07/24/22 Time of Service: 15:07 Assessment and Plan Assessment and plan (1) Foot osteomyelitis, left: Status: Suspected Assessment and plan: patient needs a bone culture to confirm the organism. If podiatry does not see her then I will ask for ortho to evaluate her. I have kept her on Rocephin 2 gm daily and changed her Vancomycin to Daptomycin at 8 mg/kg of IBW. I will chekc CK level. I will also get an MRSA screen on her. I have explained to both her and her S.O. that she needs to quit smoking and needs better glucose contol of her DM. (2) Diabetic infection of left foot: Status: Acute Assessment and plan: as above. check JADON of her legs, although she seems to have good pulses (3) Ulcer of foot due to secondary diabetes: Status: Acute Assessment and plan: as above (4) Diabetic neuropathy: Status: None Assessment and plan: continue Lyrica although she is at the maximum doseage of 600 mg/day (5) Type 2 diabetes mellitus with diabetic neuropathy: Status: Chronic Assessment and plan: will place her on basal/bolus w/ CHO coverage Qualifiers: Diabetes mellitus exterminator termite insulin use: with exterminator termite use Qualified Code(s): E11.40 - Type 2 diabetes mellitus with diabetic neuropathy, unspecified; Z79.4 - termite control technician (current) use of insulin (6) Tobacco use disorder: Status: Chronic Assessment and plan: will apply nicoderm patch (7) History of substance abuse: Assessment and plan: need to confirm her methadone dose w/ her pain clinic Subjective Subjective Patient reports: no new complaints Interval history since last seen: Patient would like to get out of her room and have her significant other wheel her around the hospital. She wants to know when she can go home. I explained to her that she needs to have negative blood cultures and that her MRI demonstrates osteomyelitis of her left 5th metatarsal and she has fractures of the left 5th metatarsal head and the shaft of the 4th proximal phalanx. I also told her that since we did not have any culture results from her prior wound debridement we have no identification of the organism involved. I am awaiting podiatry consultation to decide on management of the osteomyelitis. I told her that if her blood cultures show no growth, then we could have PICC line placed for exterminator termite antibiotics. I have switched her vancomycin to daptomycin so she can be on once daily antibiotics. Exam Narrative Exam Narrative: Denise is sitting up on her bed talking w/ her S.O. alert and oriented Lungs; some scattered expiratory wheezing; no rhonchi or rales Heart; rrr Legs/feet: left foot is bandaged and I did not unwrap this. I asked her if podiatry had re-dressed this, she says she has not seen the cake icer since admission. Objective Last Vital Signs Temp 36.7 C 07/24/22 15:00 Pulse 72 07/24/22 15:00 Resp 17 07/24/22 15:00 BP 133/85 07/24/22 15:00 Pulse Ox 95 07/24/22 15:00 Laboratory Results - last 24 hr 07/23/22 07/23/22 07/23/22 05:35 15:55 16:10 WBC RBC Hgb Hct MCV MCH MCHC RDW Plt Count MPV Immature Gran % Neutrophils % Lymphocytes % Monocytes % Eosinophils % Basophils % Nucleated RBC % Absolute Neutrophils Absolute Lymphocytes Absolute Monocytes Absolute Eosinophils Absolute Basophils ESR VBG pH VBG pCO2 VBG pO2 VBG HCO3 VBG Total CO2 VBG O2 Saturation VBG Base Excess VBG Lactate Sodium 134 L Potassium 4.5 Chloride 98 Carbon Dioxide 29.2 Anion Gap 6.8 BUN 15 Creatinine 1.0 Est GFR (CKD-EPI 2020) 71.69 Glucose 222 H Hemoglobin A1c 9.8 H Calcium 9.6 Magnesium 1.5 L Total Bilirubin 0.2 AST 18 ALT 14 Alkaline Phosphatase 150 H C-Reactive Protein 6.28 H Total Protein 7.8 Albumin 3.4 Procalcitonin Urine Color Yellow Urine Clarity Clear Urine pH 7.0 Ur Specific Roann 1.020 Urine Protein Negative Urine Ketones Negative Urine Blood Negative Urine Nitrite Negative Urine Bilirubin Negative Urine Urobilinogen 0.2 Ur Leukocyte Esterase Negative Urine Glucose Negative COVID-19 Source SARS-CoV-2 (PCR) 07/23/22 07/23/22 07/23/22 16:10 16:10 16:10 WBC 12.28 H RBC 5.53 H Hgb 13.9 Hct 42.7 MCV 77 L MCH 25.1 L MCHC 32.6 RDW 14.9 H Plt Count 261 MPV 11.5 H Immature Gran % 1.0 Neutrophils % 65.0 Lymphocytes % 26.1 Monocytes % 6.3 Eosinophils % 1.3 Basophils % 0.3 Nucleated RBC % 0.0 Absolute Neutrophils 7.98 H Absolute Lymphocytes 3.21 Absolute Monocytes 0.77 Absolute Eosinophils 0.16 Absolute Basophils 0.04 ESR 54 H VBG pH VBG pCO2 VBG pO2 VBG HCO3 VBG Total CO2 VBG O2 Saturation VBG Base Excess VBG Lactate 1.8 H Sodium Potassium Chloride Carbon Dioxide Anion Gap BUN Creatinine Est GFR (CKD-EPI 2020) Glucose Hemoglobin A1c Calcium Magnesium Total Bilirubin AST ALT Alkaline Phosphatase C-Reactive Protein Total Protein Albumin Procalcitonin < 0.1 Urine Color Urine Clarity Urine pH Ur Specific Roann Urine Protein Urine Ketones Urine Blood Urine Nitrite Urine Bilirubin Urine Urobilinogen Ur Leukocyte Esterase Urine Glucose COVID-19 Source SARS-CoV-2 (PCR) 07/23/22 07/23/22 16:10 16:13 WBC RBC Hgb Hct MCV MCH MCHC RDW Plt Count MPV Immature Gran % Neutrophils % Lymphocytes % Monocytes % Eosinophils % Basophils % Nucleated RBC % Absolute Neutrophils Absolute Lymphocytes Absolute Monocytes Absolute Eosinophils Absolute Basophils ESR VBG pH 7.35 VBG pCO2 52 H VBG pO2 54 VBG HCO3 29 H VBG Total CO2 26 VBG O2 Saturation 88 VBG Base Excess 4 H VBG Lactate Sodium Potassium Chloride Carbon Dioxide Anion Gap BUN Creatinine Est GFR (CKD-EPI 2020) Glucose Hemoglobin A1c Calcium Magnesium Total Bilirubin AST ALT Alkaline Phosphatase C-Reactive Protein Total Protein Albumin Procalcitonin Urine Color Urine Clarity Urine pH Ur Specific Roann Urine Protein Urine Ketones Urine Blood Urine Nitrite Urine Bilirubin Urine Urobilinogen Ur Leukocyte Esterase Urine Glucose COVID-19 Source Nasal/Nares SARS-CoV-2 (PCR) Negative
[2022-07-24 16:32] VITALS: BP 194/104; PULSE 72
[2022-07-24 17:19] VITALS: BP 194/104; PULSE 72
[2022-07-24] MEDS: DAPTOmycin 500 MG in Normal Saline 50 ML 100 MG IVPB (18:57)
[2022-07-24 19:00] VITALS: BP 194/104; PULSE 72
[2022-07-24 19:20] LABS: Creatine Kinase 30 U/L (26-192)
[2022-07-24] MEDS: cefTRIAXone 2 GM/50 ML BAG IVPB (19:52)
[2022-07-24] MEDS: Insulin Glargine 300 UNITS/3 ML PEN 25 UNITS SC (22:00)
[2022-07-24 23:46] VITALS: BP 128/76; PULSE 64; RESP 18; TEMP 36.7; O2SAT 96
[2022-07-25] MEDS: LORazepam 0.5 MG TAB PO ×3 (01:10→12:44)
[2022-07-25] MEDS: Ketorolac 15 MG/ML VIAL IVP ×2 (01:10→09:48)
[2022-07-25] MEDS: Normal Saline Flush 10 ML SYR IVP ×2 (01:12→08:12)
[2022-07-25] MEDS: oxyCODONE 5 MG TAB PO ×2 (05:31→12:48)
--- NOTE | 2022-07-25 06:41 | POCOE_ITS ---
Date of service: 07/24/22 Time of Service: 16:00 Assessment and Plan Assessment and plan (1) Foot osteomyelitis, left: Status: Suspected Assessment and plan: The patient was evaluated and treated at beside 07/24 5PM (computer difficulties until now; I apologize), alongside the nurse. When evaluated, the patient was of the understanding that she will discharged, going home once blood cultures are negative. MRI confirms the presence of underlying osteomyelitis, but no deep abscess of fluid collection warranting immediate surgical decompression. Treatment options were reviewed in detail with the patient, including surgical (debridment with 5th, possibly 4th partial ray resections) vs. penitentiary likely 4-6 week IV Abx. The risks of both were reviewed, including the risk for wound healing difficulty and delay, post-surgical or not, with her uncontrolled DM (HgA1c 10, decreased from 14). The patient expresses adamant preference for IV Abx at this time, and wishes to not have surgery. The risks of the infection spreading and needing surgery in the future (possibly more extensive) were reviewed in detail with her. Emphasis was placed on establishing care with a local PCP, improvement of management of DM, and possible definitive surgical debridement in the future if infection doesn't improve with IV Abx, and once DM better controlled, if possible. She is in agreement with this but again un derstands the risks of the infection not resolving and/or spreading, and understands the importance of presenting to the ED if she notes increased redness, swelling, red streaks or other signs of infection. She is to follow up in the podiatry clinic next week. Appt will be made. The dressing was changed; a DSD was reapplied. She is to continue with the use of the post-op shoe. (2) Diabetic infection of left foot: Status: Acute History of Present Illness History of Present Illness Chief Complaint: L foot infection Narrative: Pt evaluated at bedside at 5PM on 07/24/22, for L foot infection, admitted 07/23/22. When evaluated, the patient was of the understanding that she will discharged, going home once blood cultures are negative. Pt reports to having continued pain, but decreased. She reports that she feels better and she wants to go home to see her dog, from whom she has not been for 8 over years. She expresses significant anxiety with being in the hospital. She reports that she has been sitting with her foot elevated and has kept her dressing intact. She reports there has not been the drainage that was present prior to her admission. She is not interested in surgery, she reports. She reports she still does not have a local PCP for the management of her DM, but is trying Consults Consult date: 07/24/22 [facility] All Active Problems (Updated 07/23/22 @ 20:01 by Scott Ramos MD) Diabetic infection of left foot (Acute) Infection of left foot (Acute) Ulcer of foot due to secondary diabetes (Acute) Asthma (Chronic) Umbilical hernia (Chronic 03/11/18) [facility] GI 03/17/18 RH Type 2 diabetes mellitus with diabetic neuropathy (Chronic 02/18/14) w/ neuropathy mild retinopathy Left 01/16/16 Tobacco use disorder (Chronic) Started smoking age 9 Slow transit constipation (Chronic) [facility] 03/17/18 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) JAD/BSO in late 20s, no HRT Poorly controlled type 2 diabetes mellitus (Chronic 03/23/18) Polypharmacy (Chronic 12/14/15) Opioid dependence (Chronic 10/31/14) Methadone clinic Mild nonproliferative diabetic retinopathy associated with type 2 diabetes mellitus (Chronic 01/22/16) Migraine without status migrainosus, not intractable (Chronic) Mental health disorder (Chronic) Pt reports being diagnosed with bipolar disorder, disassociative disorder, anxiety, & multiple personality disorder Hypomagnesemia (Chronic 09/30/16) Hyperlipidemia (Chronic 09/30/16) 10-year ASCVD risk = unable to calculate due to not being age 40+ however dx T2DM, so Rx for statin 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 Jimenez [facility] Fatty liver (Chronic 12/18/15) Dyspareunia in female (Chronic 07/09/17) Depressive disorder (Chronic 10/31/14) ADMISSION SUICIDAL THOUGHTS 06/13/14 OD ATTEMPTS IN PAST Chronic nausea (Chronic) EGD 04/16/16 Dr. Ferrer; multifactoral: gastroparesis, constipation, hyperglycemia, methadone Chronic fatigue (Chronic 07/19/15) Atrophic vaginitis (Chronic 07/09/17) Adult BMI > 30 (Chronic) Abnormal liver function tests (Chronic 12/18/15) Medical History (Updated 07/23/22 @ 20:01 by Scott Ramos MD) Cellulitis of left breast Gastroparesis Genital herpes Take daily suppression. Hepatitis C History of substance abuse Opiates, THC HLD (hyperlipidemia) Mental health disorder Tobacco use disorder Type 2 diabetes mellitus Vulvovaginal candidiasis Surgical History section (~2003) EGD (04/16/16) Dr. Ferrer Hysterectomy, Vaginal w/ BSO (~2006) Family History Mother Substance abuse Alcohol abuse Father Substance abuse Alcohol abuse Grandmother Neoplasm Colorectal CA (pt believes d'xed <50 y/o) Social History Smoking/Tobacco Use Status: Current every day Tobacco Type: cigarettes Smoking packs per day: 1 Smoking cigarettes per day: 20.0 Tobacco: How many years used: 27 Smoking risk assessment performed?: Yes Alcohol Intake: never Drug use: Current Sobriety Substance use type: does not use Adopted: No Caregiver/Support person: No Foster care: Yes Housing: apartment Number of Children: 2 Communication Needs: None Pets and animals: Yes Pets and animals: dog(s) Sexually active: No Current gender identity: female What type of physical activity do you participate in: walking Duration: 30-45 minutes/day Frequency: daily Do you feel safe at home: Yes Do you feel safe in your relationship?: Yes Exam Cardio Other: DP/PT pulses 2/4, CFT < 3 secs. Pedal hair present but decreased. Thin shiny skin noted Skin Other: L foot with full thickness wound plantar L 4th metatarsal head, with probe to bone but with decreased drainage, and decreased malodor and erythema as compared to when evaluated in clinic 07/23. Neuro Other: Sensation absent via [place] Monofilament Extrem Other: Musculoskeletal: lesser digital contractures with prominent metatarsal heads plantarly, gastroc equinus Results Last Vital Signs Temp 98.1 F 07/24/22 23:46 Pulse 64 07/24/22 23:46 Resp 18 07/24/22 23:46 BP 128/76 07/24/22 23:46 Pulse Ox 96 07/24/22 23:46 Labs Result diagrams: 07/23/22 16:10 07/23/22 16:10 Labs: Laboratory Results - last 24 hr 07/23/22 07/24/22 05:35 18:45 Hemoglobin A1c 9.8 H Creatine Kinase 30 Imaging Additional studies: MRI results demonstrate bone marrow edema L 5th metatarsal with fractures at the bases of the 4th and 5th proximal phalanges, possible old healed fractures but with osteomyelitic changes possible. No further labs since admission 07/23; WBC decreasing to 12 from 17 since last week
--- NOTE | 2022-07-25 07:15 | PDOC.CMPRO ---
- If Service Date Differs Date of service: 07/25/22 Time of Service: 07:15 Care Management Progress Note S/O: Denise was sitting up in bed when CM met with her. She is alert, oriented and easy to engage in conversation. Denise continues to require inpatient admission for IV ABX. Podiatry is consulted and her BS is being closely monitored and managed with insulin. Viry/DM Educator met with Denise today and she was drinking soda that her brought her. Flori provided patient with education surrounding diabetes and sugar. Per Viry, pt may benefit from a continuous monitor. CM continues to follow. A: 41 year old female admitted to [facility] on 07/23/22 for Diabetic infection of left foot P: Anticipate Denise will discharge home via private vehicle with her when medically ready. Denise will follow up with Tdoc provider, Dr. Sánchez. Per pt, she is in the process of filling out paperwork for [facility]. Denise will follow up with Podiatry and need close community follow up for her uncontrolled Diabetes. CM will offer a referral to [facility] for community case management.
[2022-07-25 07:18] LABS: Vancomycin, Trough 4.5 ug/mL (10.0-20.0)
[2022-07-25 07:24] VITALS: BP 125/84; PULSE 73; RESP 16; TEMP 36.8; O2SAT 94
[2022-07-25] MEDS: Methadone Liquid 10 MG/ML 77 MG PO (08:10)
[2022-07-25] MEDS: Nystatin POWDER 15 GM JAR TP (08:11)
[2022-07-25] MEDS: Nicotine 21 MG/24 HR PATCH TD (08:13)
[2022-07-25] MEDS: valACYclovir 500 MG TAB PO (08:13)
[2022-07-25] MEDS: Amphet Asp/Amphet/D-Amphet 10 MG TAB 20 MG PO ×2 (08:13→14:02)
[2022-07-25] MEDS: Omeprazole 20 MG CAPCR PO (08:13)
[2022-07-25] MEDS: Pregabalin 100 MG CAP 200 MG PO ×2 (08:13→14:02)
[2022-07-25] MEDS: Insulin Aspart 300 UNITS/3 ML PEN SC ×4 (08:20→12:04)
--- NOTE | 2022-07-25 12:57 | POCOE_ITS ---
Date of service: 07/25/22 Time of Service: 12:00 Assessment and Plan Assessment and plan (1) Foot osteomyelitis, left: Status: Suspected Assessment and plan: The patient was evaluated at bedside. The dressing was removed and attempts were made, after discussing options again with the patient, to perform a bone biopsy at bedside, unsuccessfully (pain and bone too deep). She wants to go home, elects to go home and is not in agreement with an operative bone biopsy tomorrow. A dressing reapplied. The case was reviewed with Dr. Ramos this morning, who will help direct IV Abx, likely staph coverage considering her response prior to admission with oral bactrim (WBC decreased from 17 to 12). Or ders will be written for home health care to assist with dressing changes. She is to follow up with myself in the Podiatry Clinic next 08/01 at 10 am. She is to use the post-op shoe and limit activity. All questions were answered History of Present Illness History of Present Illness Chief Complaint: L foot infection Narrative: Pt evaluated at bedside, 1200. She relays that has decided she would like to go home and is not in agreement with a bone biopsy. She has anxiety. She reports that her foot does feel slightly less painful. She denies N/C/NS/F. She has kept the dressing intact since yesterday PFSH All Active Problems (Updated 07/23/22 @ 20:01 by Scott Ramos MD) Diabetic infection of left foot (Acute) Infection of left foot (Acute) Ulcer of foot due to secondary diabetes (Acute) Asthma (Chronic) Umbilical hernia (Chronic 03/11/18) [facility] GI 03/17/18 RH Type 2 diabetes mellitus with diabetic neuropathy (Chronic 02/18/14) w/ neuropathy mild retinopathy Left 01/16/16 Tobacco use disorder (Chronic) Started smoking age 9 Slow transit constipation (Chronic) [facility] GI 03/17/18 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) JAD/BSO in late 20s, no HRT Poorly controlled type 2 diabetes mellitus (Chronic 03/23/18) Polypharmacy (Chronic 12/14/15) Opioid dependence (Chronic 10/31/14) Methadone clinic Mild nonproliferative diabetic retinopathy associated with type 2 diabetes mellitus (Chronic 01/22/16) Migraine without status migrainosus, not intractable (Chronic) Mental health disorder (Chronic) Pt reports being diagnosed with bipolar disorder, disassociative disorder, anxiety, & multiple personality disorder Hypomagnesemia (Chronic 09/30/16) Hyperlipidemia (Chronic 09/30/16) 10-year ASCVD risk = unable to calculate due to not being age 40+ however dx T2DM, so Rx for statin 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 [facility] Fatty liver (Chronic 12/18/15) Dyspareunia in female (Chronic 07/09/17) Depressive disorder (Chronic 10/31/14) ADMISSION SUICIDAL THOUGHTS 06/13/14 OD ATTEMPTS IN PAST Chronic nausea (Chronic) EGD 04/16/16 Dr. Ferrer; multifactoral: gastroparesis, constipation, hyperglycemia, methadone Chronic fatigue (Chronic 07/19/15) Atrophic vaginitis (Chronic 07/09/17) Adult BMI > 30 (Chronic) Abnormal liver function tests (Chronic 12/18/15) Medical History (Updated 07/23/22 @ 20:01 by Scott Ramos MD) Cellulitis of left breast Gastroparesis Genital herpes Take daily suppression. Hepatitis C History of substance abuse Opiates, THC HLD (hyperlipidemia) Mental health disorder Tobacco use disorder Type 2 diabetes mellitus Vulvovaginal candidiasis Surgical History section (~2003) EGD (04/16/16) Dr. Ferrer Hysterectomy, Vaginal w/ BSO (~2006) Family History Mother Substance abuse Alcohol abuse Father Substance abuse Alcohol abuse Grandmother Neoplasm Colorectal CA (pt believes d'xed <50 y/o) Social History Smoking/Tobacco Use Status: Current every day Tobacco Type: cigarettes Smoking packs per day: 1 Smoking cigarettes per day: 20.0 Tobacco: How many years used: 27 Smoking risk assessment performed?: Yes Alcohol Intake: never Drug use: Current Sobriety Substance use type: does not use Adopted: No Caregiver/Support person: No Foster care: Yes Housing: apartment Number of Children: 2 Communication Needs: None Pets and animals: Yes Pets and animals: dog(s) Sexually active: No Current gender identity: female What type of physical activity do you participate in: walking Duration: 30-45 minutes/day Frequency: daily Do you feel safe at home: Yes Do you feel safe in your relationship?: Yes Exam Skin Other: Full thickness wound plantar L 4th metatarsal head. Minimal changes as compared to yesterday with the exception of slightly decreased edema, erythema, drainage Results Last Vital Signs Temp 98.2 F 07/25/22 07:24 Pulse 73 07/25/22 07:24 Resp 16 07/25/22 07:24 BP 125/84 07/25/22 07:24 Pulse Ox 94 07/25/22 07:24 Labs Result diagrams: 07/23/22 16:10 07/23/22 16:10 Labs: Laboratory Results - last 24 hr 07/24/22 07/25/22 18:45 06:55 Creatine Kinase 30 Vancomycin Trough 4.5 L
--- NOTE | 2022-07-25 14:06 | W.INDIABCONS ---
Date of service: 07/25/22 Time of Service: 14:06 Diabetes Inpatient Consult Reason for Visit: DM DESCRIPTION/ASSESSMENT: Met with Denise and today. Denise was admitted with osteomylitis of right foot. PMH: DM2, smoker, lupus, liver cirrohosis, morbid obesity. A1C: 9.8% indicates poor glycemic control Denise reports that she typically eats 2 meals daily, frequents fast food restaurants and drinks soda, is a smoker. Would like to get a continuous glucose monitor for better glycemic control. Does not check blood sugars very often. As on medicare, will need to have insulin administration QID. Home DM meds: humalog 3 x daily, ozempic INTERVENTION: Attempted to provide dietary education for optimal glycemic management, however, difficult as Denise and are resistant to much of the information provided. They both state that drinking regular soda is better than diet soda. Encouraged them to stop drinking any sweetened beverage and fast foods. Provided my contact information for outpatient counseling. Denise to follow up with her PCP to get script for CGM as would help her regulate her blood sugars and help with healing. Recommend starting basal insulin at discharge- recommend starting at 10 units lantus at bedime, increase until fasting sugars <150 mg/dl PLAN: Denise encouraged to follow up as outpatient diabetes management. Time Spent in Nutritional Counseling and Treatment: 20
[2022-07-25] MEDS: DAPTOmycin 500 MG in Normal Saline 50 ML 100 MG IVPB (14:57)
[2022-07-25] MEDS: SUMAtriptan 25 MG TAB PO (14:58)
--- NOTE | 2022-07-25 15:15 | PDOC.HHF2F_ITS ---
Home Health Certification Home Health Certification: 1. Encounter Date and Reason I certify that Denise Crowell was seen by Berenice Alejo NP on 07/25/22 and that I had a [id number] encounter with this patient that meets the physician face to face encounter requirements. 2. Clinical Findings Supporting Skilled Need and Homebound Status I certify that home health services are medically necessary, include either intermittent senior living and/or physical/speech therapy, and that this pa tient is homebound in that absences from the home require considerable and taxing effort and are infrequent or of short duration, or are attributable to the need to receive medical care. [X] (a) Attached documentation from encounter provides clinical findings supporting skilled need and homebound status (including what assistance patient requires to leave the home). The encounter with the patient was in whole, or in part, for the following medical condition, which is the primary reason for home health care: Osteomyelitis Left Foot Long-Term: Monitor patient's medical condition, assess exacerbation of medical condition, monitor wound for signs and symptoms of infection, provide wound care, and train caregivers to perform wound care. Wound care orders: 1. Left foot - Cleanse foot with dermal wound cleanser; allow to dry; pack with plain iodoform; apply dry dressing. Perform three times per week. 2. Right foot - Cleanse foot with dermal wound cleanser;, allow to dry; apply foam dressing. Perform three times per week. Homebound: Patient is unable to leave home without assistance and ambulation is severely limited due to left foot infection 3. Certification and Authentication I certify that I composed the above information based on my clinical judgement relating to this patient's medical condition and, if applicable, clinical findings communicated to me by the NPP or inpatient physician who performed the Home Health Referral. All further orders will be obtained through Liz Bolivar MD (Podiatry)
[2022-07-25 15:23] VITALS: BP 134/92; PULSE 92; RESP 16; TEMP 36.7; O2SAT 97
--- NOTE | 2022-07-25 15:41 | DSE_ITS ---
Date of service: 07/25/22 Time of Service: 15:41 DS: Diagnosis Discharge Diagnosis (1) Foot osteomyelitis, left: Status: Suspected Discharge Plan Disposition Patient Disposition: HOME W/HOME HEALTH SERVICE Condition: Stable Discharge Details Reason For Visit: Osteomyelitis Left Foot Admit Date/Time: 07/23/22 17:04 Admit Provider: Scott Ramos Attending Provider: Scott Ramos Primary Care Provider: Unknown,Unknown Hospital Course Hospital Course: This is a 41 yr old female patient w/ hx of DM2 x 5 yrs (treated w/ Ozempic and Humalog; previously was on Tresiba). She has had diabetic neuropathy treated w/ Lyrica and has suffered from recurrent diabetic foot/toe ulcers. Her most current ulcer is at the base of the left 4th right MTP on plantar surface and has been present for about one month. She said that it had been draining pus and she has been on antibiotics off and on over the past month w/ the most re cent regimen including Augmentin and Bactrim x one week. She saw her spanish lecturer on the day of admission who sent her to the ED for evaluation. X-rays of her left foot from 07/15 reportedly demonstrate non-displaced healing fracture of the head of the 5th metatarsal and healed fracture of the mid shaft of the proximal phalanx of the 4th toe. The wound over the plantar surface of the foot is not draining any purulent material. It is suspected that she has osteomyelitis. Patient was admitted for IV antibiotics and MRI of her left foot. Labs from the ER include WBC of 12,000 which was down from 17,800 on 07/15. CRP was elevated at 6.28 which was also lower than her level of >15 on 07/15.? Patient is a smoker of 1 ppd since age of 10 but denies any hx of vascular disease, CVA or NE. Her DM is complicated by peripheral neuropathy. Patient was begun on high dose Rocephin and Vancomycin in the ED, which was continued on admission. The MRI reading showed fracture of the 5th metatarsal head and 4th proximal phalanx with contrast enhancement in the distal shaft of the 5th metatarsal, suspicious for osteomyelitis. The patient was evaluated and treated by Dr Bolivar, podiatry, at beside . ?Treatment options were reviewed in detail with the patient, including surgical (debridment with 5th, possibly 4th partial ray resections) vs. senior care likely 4-6 week IV Abx. The risks of both were reviewed, including the risk for wound healing difficulty and delay, post-surgical or not, with her uncontrolled DM (HgA1c 10, decreased from 14). The patient expressed adamant preference for IV Abx at this time, and wishes to not have surgery. The risks of the infection spreading and needing surgery in the future (possibly more extensive) were reviewed in detail with her by Dr Bolivar. She was advised to present to the ED if she noted increased redness, swelling, red streaks or other signs of infection. She is to follow up in the podiatry clinic next week. She is to continue with the use of the post-op shoe. ??? Wound care orders for home health halfway per Dr. Bolivar:?? 1. Left foot - Cleanse foot with dermal wound cleanser; allow to dry; pack with plain iodoform; apply dry dressing.? Perform three times per week. 2. Right foot - Cleanse foot with dermal wound cleanser; allow to dry; apply foam dressing.? Perform three times per week. She was scheduled with [facility] for daily antibiotics.? She is to follow up with Jahaira Cook APRN. Discussed with Dr Ramos Home Meds and New Rx's Prescriptions: New ketorolac 10 mg tablet 10 mg PO Q8H PRNQty: 21 0RF oxycodone 5 mg tablet 5 mg PO Q6H PRNQty: 14 0RF Continued methadone 10 mg/mL concentrate 77 mg PO DAILY Label Comments: 77 mg albuterol sulfate [ProAir HFA] 90 mcg/actuation HFA aerosol inhaler 1 - 2 puff Inhalation Q4-6H PRN Qty: 1 1RF Rx Instructions: DISPENSE ALBUTEROL INHALER BRAND COVERED BY INSURANCE nystatin 100,000 unit/gram powder 1 applic Topical BID PRN (Reason: fungal skin infection) Qty: 30 3RF Rx Instructions: Apply powder to affected area under R breast twice daily valacyclovir 500 mg tablet 500 mg PO DAILY Qty: 90 3RF Rx Instructions: FOR SUPRESSION OF HSV sumatriptan succinate 25 mg tablet 100 mg PO ONCE PRN (Reason: migraine headache) Rx Instructions: Take 25 mg as needed for migraine, can repeat dose in 2 hours if needed. Not to exceed 200mg per day (pt often takes 100mg BID). lorazepam 0.5 mg tablet 0.5 mg PO BID PRN Latuda 40 mg tablet 40 mg PO DAILY Rx Instructions: must administer with food (at least 350 calories) (DME) blood-glucose meter [ProfusaTouch Verio IQ Meter] 1 EACH kit 1 ea Miscellaneous QID Qty: 1 0RF Rx Instructions: E 11.329, E11.40 to test blood sugars 4xd,maintain HGB A1C less than 7 (DME) lancets 1 EACH misc 1 ea Miscellaneous QID Qty: 400 3RF Rx Instructions: Dx: E11.40 to maintain HbA1C less than 7% Please dispense lancets to use with Verio Glucometer hydroxyzine HCl 50 mg tablet 50 mg PO TID PRN Label Comments: note dated 10/27/18 [facility] Trudy Ray [facility] dextroamphetamine-amphetamine [Adderall] 20 mg tablet 20 mg PO TID Label Comments: Trudy Campbell, HEAVY EQUIPMENT OPERATOR 02/02/19 [facility] (DME) pen needle, diabetic [BD Ultra-Fine Yamini Pen Needle] 32 gauge x 32 needle 1 ea Miscellaneous QID Qty: 100 0RF Rx Instructions: Dx: E11.9 to maintain HbA1c less than 7% To administer Insulin Dispense BD ultra fine atorvastatin 10 mg tablet 10 mg PO QHS Qty: 90 0RF omeprazole 20 mg capsule,delayed release(DR/EC) 20 mg PO DAILY Qty: 90 0RF ondansetron 4 mg tablet,disintegrating 8 mg PO BID PRN (Reason: nausea and vomiting) Qty: 60 0RF acetaminophen 500 mg tablet 500 - 1,000 mg PO Q8H MDD 3000 mg PRN (Reason: fever or pain) Qty: 180 0RF Rx Instructions: 1 month supply ibuprofen 800 mg tablet 800 mg PO Q8H PRN (Reason: fever or pain) Qty: 30 0RF Rx Instructions: 1 month supply; take acetaminophen first, only take ibuprofen if acetaminophen doesn't work pregabalin 200 mg capsule 200 mg PO TID Qty: 270 0RF baclofen 10 mg tablet 10 mg PO TID PRN (Reason: muscle spasm) Qty: 30 0RF (DME) OneTouch Verio test strips Strip 1 ea Miscellaneous QID Qty: 120 0RF Rx Instructions: Dx: E11.9 to check blood glucose daily to maintain HbA1c less than 7%, pt on insulin, QID testing metoclopramide HCl [Reglan] 10 mg tablet 10 mg PO Q6H PRNQty: 30 0RF Discontinued sulfamethoxazole-trimethoprim [Bactrim DS] 800-160 mg tablet 1 tab PO BID 10 Days Qty: 20 0RF No Action alcohol swabs [Alcohol Pads] 1 EACH pads, medicated 1 ea Topical DAILY Qty: 100 Discharge Instructions Instructions: Ketorolac (By mouth), Oxycodone, Rapid Release (By mouth), Daptomycin (By injection), Diabetic Foot Ulcers (DC), How to Care for Your PICC (Peripherally Inserted Central Catheter) (DC) Additional Instructions: Daily infusions for 6 weeks; schedule with the [facility] infusion clinic Do not take ibuprofen while taking ketorolac. Take oxycodone only for severe pain. Stand Alone Forms: Nursing Discharge Form Referrals: Lacy Bolivar DPM [[facility] STAFF PHYSICIAN] - 08/01/22 10:00 am (August 01 @ 10:00 am Follow up from hospitalization) Dontrell Sánchez [ [facility] ST[facility]FF PHYSICIAN] - (Please call Friday for a Hospital discharge follow up 1-2 weeks) Activity:: Limit activity Equipment/Supplies:: Post op shoe Diet:: As Tolerated Discharge Orders Discharge Orders: Discharge Order (Routine); Ordered 07/25/22 Ordered By: Berenice Alejo Discharge Data Discharge Date/Time-TO BE ENTERED AT DEPARTURE: 07/25/22 16:57 DS: Summary Time Spent with Patient providing and/or coordinating discharge services: Greater than 30 minutes Status at Discharge Functional status at discharge: independent ambulation (hard shoe) Overall status at discharge: patient is not back to baseline Mental Status: mental status grossly normal Speech and Movement: speech and movement normal Mood: congruent mood Affect: normal affect Exam Psych Mental Status: mental status grossly normal Speech and Movement: speech and movement normal Mood: congruent mood Affect: normal affect DS: Data Vitals/I&O Vitals and I&O: Vital Signs Temperature 36.7 C 07/25/22 15:23 Temperature Source Tympanic 07/25/22 15:23 Pulse 92 H 07/25/22 15:23 Pulse Rhythm Regular 07/25/22 08:15 Pulse 72 07/24/22 19:00 Respiratory Rate 16 07/25/22 15:23 Respiratory Effort Non-Labored 07/25/22 08:15 Respiratory Depth Normal 07/25/22 08:15 Respiratory Pattern Normal 07/25/22 08:15 Blood Pressure 134/92 H 07/25/22 15:23 Blood Pressure Position Sitting 07/23/22 15:44 Pulse Oximetry 97 07/25/22 15:23 Oxygen Delivery Method Room Air 07/25/22 15:23 Oxygen Flow Rate 0 07/25/22 15:23 Pain Level 7 07/25/22 15:23 Intake & Output 07/24/22 07/25/22 07/25/22 23:59 11:59 23:59 Intake Total 1220 / 1840 Output Total 1250 / 2000 400 / 1400 1000 / 1400 Balance -30 / -160 -390 / -1390 -1000 / -1390 Intake: IV 380 / 400 Oral 840 / 1440 Output: Urine 1250 / 2000 400 / 1400 1000 / 1400 Other: Urine Color Yellow Yellow Urine Appearance Clear Clear Urine Odor Normal Normal Voiding Methods Toilet Toilet Toilet Data Completed and Pending Labs on day of discharge: Labs from last 24 hours 07/25/22 07/24/22 06:55 18:45 Creatine Kinase 30 Vancomycin Trough 4.5 L 07/24/22 20:15 Nose MRSA Screen - Pending Preliminary micro results at discharge 07/24/22 20:15 MRSA Screen - Pending Nose 07/23/22 16:46 Blood Culture - Preliminary Blood NO GROWTH 24 HOURS 07/23/22 16:23 Blood Culture - Preliminary Blood NO GROWTH 24 HOURS PFSH All Active Problems (Updated 07/23/22 @ 20:01 by Scott Ramos MD) Diabetic infection of left foot (Acute) Infection of left foot (Acute) Ulcer of foot due to secondary diabetes (Acute) Asthma (Chronic) Umbilical hernia (Chronic 03/11/18) [facility] 03/17/18 [facility] Type 2 diabetes mellitus with diabetic neuropathy (Chronic 02/18/14) w/ neuropathy mild retinopathy Left 01/16/16 Tobacco use disorder (Chronic) Started smoking age 9 Slow transit constipation (Chronic) [facility] 03/17/18 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) JAD/BSO in late 20s, no HRT Poorly controlled type 2 diabetes mellitus (Chronic 03/23/18) Polypharmacy (Chronic 12/14/15) Opioid dependence (Chronic 10/31/14) Methadone clinic Mild nonproliferative diabetic retinopathy associated with type 2 diabetes mellitus (Chronic 01/22/16) Migraine without status migrainosus, not intractable (Chronic) Mental health disorder (Chronic) Pt reports being diagnosed with bipolar disorder, disassociative disorder, anxiety, & multiple personality disorder Hypomagnesemia (Chronic 09/30/16) Hyperlipidemia (Chronic 09/30/16) 10-year ASCVD risk = unable to calculate due to not being age 40+ however dx T2DM, so Rx for statin 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 Jimenez [facility] Fatty liver (Chronic 12/18/15) Dyspareunia in female (Chronic 07/09/17) Depressive disorder (Chronic 10/31/14) ADMISSION SUICIDAL THOUGHTS 06/13/14 OD ATTEMPTS IN PAST Chronic nausea (Chronic) EGD 04/16/16 Dr. Ferrer; multifactoral: gastroparesis, constipation, hyperglycemia, methadone Chronic fatigue (Chronic 07/19/15) Atrophic vaginitis (Chronic 07/09/17) Adult BMI > 30 (Chronic) Abnormal liver function tests (Chronic 12/18/15) Medical History (Updated 07/23/22 @ 20:01 by Scott Ramos MD) Cellulitis of left breast Gastroparesis Genital herpes Take daily suppression. Hepatitis C History of substance abuse Opiates, THC HLD (hyperlipidemia) Mental health disorder Tobacco use disorder Type 2 diabetes mellitus Vulvovaginal candidiasis Surgical History section (~2003) EGD (04/16/16) Dr. Ferrer Hysterectomy, Vaginal w/ BSO (~2006) Family History Mother Substance abuse Alcohol abuse Father Substance abuse Alcohol abuse Grandmother Neoplasm Colorectal CA (pt believes d'xed <50 y/o) Social History Smoking/Tobacco Use Status: Current every day Tobacco Type: cigarettes Smoking packs per day: 1 Smoking cigarettes per day: 20.0 Tobacco: How many years used: 27 Smoking risk assessment performed?: Yes Alcohol Intake: never Drug use: Current Sobriety Substance use type: does not use Adopted: No Caregiver/Support person: No Foster care: Yes Housing: apartment Number of Children: 2 Communication Needs: None Pets and animals: Yes Pets and animals: dog(s) Sexually active: No Current gender identity: female What type of physical activity do you participate in: walking Duration: 30-45 minutes/day Frequency: daily Do you feel safe at home: Yes Do you feel safe in your relationship?: Yes
--- NOTE | 2022-07-26 12:29 | PDOC.CMDIS ---
- If Service Date Differs Date of service: 07/25/22 Time of Service: 12:29 LACE Index Scoring Tool - Questions: Acuity (Admit via E.D.?): Yes Comorbidities: Diabetes w/o Complication E.D. Visits: 2 Care Management Discharge Reason for Hospitalization: Diabetic infection of left foot Discharge Plan: Denise is discharged home via private vehicle with family. New [facility] RN is ordered for wound care. Denise will receive infusions daily at [facility], starting 07/26/22 at 2pm. Denise will follow up with podiatry on 08/01/22, as scheduled. Hospital discharge follow up is with Dr. Sánchez's Office ([facility]) and is scheduled with Jahaira Cook NP 08/07/22 @1pm. In addition, Denise is scheduled to Establish Care at [facility] in August. Patient/Family Education Needs: Review discharge instructions, limitations, medications and plan to follow up with community providers. Discuss ask me three and goals of self care. Services Needed at Discharge: Home Health Care Services ([facility] RN, CM notified KLARISSA ALFARO verified with [facility] that Jahaira Cook NP would follow [facility] orders. )
== END 2022-07-25 16:57 | disposition home health service (06) | DRG 638 ==
LOC: ER 17:18 → MS 18:19
PROVIDERS: Admitting Provider Internal Medicine; Emergency Provider Emergency Medicine; Visit Provider Internal Medicine
DX: E11.69 Type 2 diabetes mellitus with other specified complication (principal); F11.20 Opioid dependence, uncomplicated; L97.424 Non-pressure chronic ulcer of left heel and midfoot with necrosis of bone; M86.8X7 Other osteomyelitis, ankle and foot; E11.628 Type 2 diabetes mellitus with other skin complications; E78.5 Hyperlipidemia, unspecified; E11.621 Type 2 diabetes mellitus with foot ulcer; L97.519 Non-pressure chronic ulcer of other part of right foot with unspecified severity; E11.65 Type 2 diabetes mellitus with hyperglycemia; F17.210 Nicotine dependence, cigarettes, uncomplicated; E11.42 Type 2 diabetes mellitus with diabetic polyneuropathy; L08.89 Other specified local infections of the skin and subcutaneous tissue; J45.909 Unspecified asthma, uncomplicated; K59.01 Slow transit constipation; E11.3299 Type 2 diabetes mellitus with mild nonproliferative diabetic retinopathy without macular edema, unspecified eye; F31.9 Bipolar disorder, unspecified; F44.81 Dissociative identity disorder; F41.9 Anxiety disorder, unspecified; E83.42 Hypomagnesemia; B00.9 Herpesviral infection, unspecified; E11.43 Type 2 diabetes mellitus with diabetic autonomic (poly)neuropathy; K31.84 Gastroparesis; K76.0 Fatty (change of) liver, not elsewhere classified; R11.0 Nausea; R53.82 Chronic fatigue, unspecified; E66.9 Obesity, unspecified; Z68.35 Body mass index [BMI] 35.0-35.9, adult
CPT/HCPCS: 36415; 80053; 82550; 82805; 84145; 85652; 87040; 87081; 87635; 90686; 96361; 96365; 96367; 96368; 96375; 99285; 73720; 80202; 81003; 83036; 83605; 83735; 85025; 86140; 99223; 99232; J0696; J0878; J1885; J2270; J3490

== ENCOUNTER 2022-08-21 03:09 | Outpatient (RCR) | payer MEDICARE, MEDICAID, SELFPAY ==
[2022-07-26] MEDS: DAPTOmycin 500 MG in Normal Saline 50 ML 100 MG IVPB (14:49)
[2022-07-26] MEDS: Normal Saline Flush 10 ML SYR IVP (14:52)
[2022-07-27] MEDS: Normal Saline Flush 10 ML SYR IVP (14:05)
[2022-07-27] MEDS: DAPTOmycin 500 MG in Normal Saline 50 ML 100 MG IVPB (14:58)
[2022-07-28] MEDS: DAPTOmycin 500 MG in Normal Saline 50 ML 100 MG IVPB (15:08)
[2022-07-28] MEDS: Normal Saline Flush 10 ML SYR IVP (15:08)
[2022-07-29] MEDS: DAPTOmycin 500 MG in Normal Saline 50 ML 100 MG IVPB (14:23)
[2022-07-29] MEDS: Normal Saline Flush 10 ML SYR IVP (14:24)
[2022-07-29 14:42] LABS: Anion Gap 6.7 mmol/L (3-11); BUN 15 mg/dL (7-18); CO2 30.3 mmol/L (21.0-32.0); CREATININE 0.8 mg/dL (0.55-1.02); Calcium 9.6 mg/dL (8.5-10.1); Chloride 102 mmol/L (98-107); Creatine Kinase 31 U/L (26-192); Glucose 215 mg/dL (74-106); Potassium 4.6 mmol/L (3.5-5.1); Sodium 139 mmol/L (136-145)
[2022-07-30] MEDS: DAPTOmycin 500 MG in Normal Saline 50 ML 100 MG IVPB (14:38)
[2022-07-30] MEDS: Normal Saline Flush 10 ML SYR IVP (14:40)
[2022-07-31] MEDS: Normal Saline Flush 10 ML SYR IVP (14:21)
[2022-07-31] MEDS: DAPTOmycin 500 MG in Normal Saline 50 ML 100 MG IVPB (14:58)
[2022-08-02] MEDS: Normal Saline Flush 10 ML SYR IVP (13:56)
[2022-08-02] MEDS: DAPTOmycin 500 MG in Normal Saline 50 ML 100 MG IVPB (14:20)
[2022-08-03] MEDS: Normal Saline Flush 10 ML SYR IVP (14:09)
[2022-08-03] MEDS: DAPTOmycin 500 MG in Normal Saline 50 ML 100 MG IVPB (14:10)
[2022-08-04] MEDS: DAPTOmycin 500 MG in Normal Saline 50 ML 100 MG IVPB (14:01)
[2022-08-04] MEDS: Normal Saline Flush 10 ML SYR IVP (14:01)
[2022-08-05] MEDS: DAPTOmycin 500 MG in Normal Saline 50 ML 100 MG IVPB (14:11)
[2022-08-05] MEDS: Normal Saline Flush 10 ML SYR IVP (14:11)
[2022-08-05 14:14] LABS: Anion Gap 7.2 mmol/L (3-11); BUN 15 mg/dL (7-18); CO2 29.8 mmol/L (21.0-32.0); CREATININE 0.8 mg/dL (0.55-1.02); Calcium 9.1 mg/dL (8.5-10.1); Chloride 99 mmol/L (98-107); Creatine Kinase 25 U/L (26-192); Glucose 256 mg/dL (74-106); Potassium 4.5 mmol/L (3.5-5.1); Sodium 136 mmol/L (136-145)
[2022-08-06] MEDS: Normal Saline Flush 10 ML SYR IVP (14:16)
[2022-08-06] MEDS: DAPTOmycin 500 MG in Normal Saline 50 ML 100 MG IVPB (14:16)
[2022-08-07] MEDS: Normal Saline Flush 10 ML SYR IVP (14:45)
[2022-08-07] MEDS: DAPTOmycin 500 MG in Normal Saline 50 ML 100 MG IVPB (14:49)
[2022-08-08] MEDS: Normal Saline Flush 10 ML SYR IVP (14:32)
[2022-08-08] MEDS: DAPTOmycin 500 MG in Normal Saline 50 ML 100 MG IVPB (14:32)
[2022-08-09] MEDS: Normal Saline Flush 10 ML SYR IVP (13:50)
[2022-08-09] MEDS: DAPTOmycin 500 MG in Normal Saline 50 ML 100 MG IVPB (14:38)
[2022-08-10] MEDS: Normal Saline Flush 10 ML SYR IVP (13:46)
[2022-08-10] MEDS: DAPTOmycin 500 MG in Normal Saline 50 ML 100 MG IVPB (13:49)
[2022-08-12] MEDS: DAPTOmycin 500 MG in Normal Saline 50 ML 100 MG IVPB (14:06)
[2022-08-12] MEDS: Normal Saline Flush 10 ML SYR IVP (14:06)
[2022-08-12 14:57] LABS: Anion Gap 5.9 mmol/L (3-11); BUN 13 mg/dL (7-18); CO2 29.1 mmol/L (21.0-32.0); CREATININE 0.9 mg/dL (0.55-1.02); Calcium 8.9 mg/dL (8.5-10.1); Chloride 97 mmol/L (98-107); Creatine Kinase 28 U/L (26-192); Estimated GFR 81.35 (mL/min/1.73m2); Glucose 402 mg/dL (74-106); Potassium 4.7 mmol/L (3.5-5.1); Sodium 132 mmol/L (136-145)
[2022-08-13] MEDS: DAPTOmycin 500 MG in Normal Saline 50 ML 100 MG IVPB (13:47)
[2022-08-13] MEDS: Normal Saline Flush 10 ML SYR IVP (13:47)
[2022-08-14] MEDS: DAPTOmycin 500 MG in Normal Saline 50 ML 100 MG IVPB (13:40)
[2022-08-14] MEDS: Normal Saline Flush 10 ML SYR IVP (13:40)
[2022-08-15] MEDS: Normal Saline Flush 10 ML SYR IVP (12:37)
[2022-08-15] MEDS: DAPTOmycin 500 MG in Normal Saline 50 ML 100 MG IVPB (12:38)
[2022-08-16] MEDS: DAPTOmycin 500 MG in Normal Saline 50 ML 100 MG IVPB (13:53)
[2022-08-16] MEDS: Normal Saline Flush 10 ML SYR IVP (14:11)
[2022-08-17] MEDS: Normal Saline Flush 10 ML SYR IVP (13:29)
[2022-08-17] MEDS: DAPTOmycin 500 MG in Normal Saline 50 ML 100 MG IVPB (13:30)
[2022-08-18] MEDS: Normal Saline Flush 10 ML SYR IVP (13:16)
[2022-08-18] MEDS: DAPTOmycin 500 MG in Normal Saline 50 ML 10 MG IVPB (13:16)
[2022-08-19] MEDS: DAPTOmycin 500 MG in Normal Saline 50 ML 100 MG IVPB (13:28)
[2022-08-19] MEDS: Normal Saline Flush 10 ML SYR IVP (13:36)
[2022-08-19 14:10] LABS: Anion Gap 4.1 mmol/L (3-11); BUN 11 mg/dL (7-18); CO2 31.9 mmol/L (21.0-32.0); CREATININE 0.8 mg/dL (0.55-1.02); Calcium 8.9 mg/dL (8.5-10.1); Chloride 98 mmol/L (98-107); Creatine Kinase 30 U/L (26-192); Glucose 346 mg/dL (74-106); Potassium 4.6 mmol/L (3.5-5.1); Sodium 134 mmol/L (136-145)
[2022-08-20] MEDS: DAPTOmycin 500 MG in Normal Saline 50 ML 100 MG IVPB (12:45)
[2022-08-20] MEDS: Normal Saline Flush 10 ML SYR IVP (12:45)
[2022-08-21] MEDS: DAPTOmycin 500 MG in Normal Saline 50 ML 100 MG IVPB (12:45)
[2022-08-21] MEDS: Normal Saline Flush 10 ML SYR IVP (12:45)
== END 2022-08-21 23:59 | disposition home or self-care (01) ==
LOC: INF 03:09
PROVIDERS: Visit Provider Nurse Practitioner Family
DX: M86.9 Osteomyelitis, unspecified (principal); Z45.2 Encounter for adjustment and management of vascular access device
CPT/HCPCS: 36415; 36569; 36592; 80048; 82550; 96365; J0878

== ENCOUNTER 2022-09-03 01:48 | Outpatient (RCR) | payer MEDICARE, MEDICAID, SELFPAY ==
[2022-08-22] MEDS: Normal Saline Flush 10 ML SYR IVP (14:08)
[2022-08-22] MEDS: DAPTOmycin 500 MG in Normal Saline 50 ML 100 MG IVPB (14:08)
[2022-08-24] MEDS: DAPTOmycin 500 MG in Normal Saline 50 ML 100 MG IVPB (13:11)
[2022-08-24] MEDS: Normal Saline Flush 10 ML SYR IVP (13:27)
[2022-08-25] MEDS: Normal Saline Flush 10 ML SYR IVP (14:05)
[2022-08-25] MEDS: DAPTOmycin 500 MG in Normal Saline 50 ML 100 MG IVPB (14:05)
[2022-08-26] MEDS: DAPTOmycin 500 MG in Normal Saline 50 ML 100 MG IVPB (14:15)
[2022-08-26] MEDS: Normal Saline Flush 10 ML SYR IVP (14:16)
[2022-08-26 14:53] LABS: Anion Gap 5.5 mmol/L (3-11); BUN 10 mg/dL (7-18); CO2 31.5 mmol/L (21.0-32.0); CREATININE 0.8 mg/dL (0.55-1.02); Calcium 9.4 mg/dL (8.5-10.1); Chloride 98 mmol/L (98-107); Creatine Kinase 38 U/L (26-192); Glucose 279 mg/dL (74-106); Potassium 4.4 mmol/L (3.5-5.1); Sodium 135 mmol/L (136-145)
[2022-08-27] MEDS: Normal Saline Flush 10 ML SYR IVP (13:56)
[2022-08-27] MEDS: DAPTOmycin 500 MG in Normal Saline 50 ML 100 MG IVPB (13:56)
[2022-08-28] MEDS: Normal Saline Flush 10 ML SYR IVP (14:38)
[2022-08-28] MEDS: DAPTOmycin 500 MG in Normal Saline 50 ML 100 MG IVPB (14:38)
[2022-08-29] MEDS: DAPTOmycin 500 MG in Normal Saline 50 ML 100 MG IVPB (14:24)
[2022-08-29] MEDS: Normal Saline Flush 10 ML SYR IVP (14:25)
[2022-08-30] MEDS: DAPTOmycin 500 MG in Normal Saline 50 ML 100 MG IVPB (14:12)
[2022-08-30] MEDS: Normal Saline Flush 10 ML SYR IVP (14:12)
[2022-08-31] MEDS: DAPTOmycin 500 MG in Normal Saline 50 ML 100 MG IVPB (13:36)
[2022-08-31] MEDS: Normal Saline Flush 10 ML SYR IVP (13:37)
[2022-09-01] MEDS: DAPTOmycin 500 MG in Normal Saline 50 ML 100 MG IVPB (14:09)
[2022-09-01] MEDS: Normal Saline Flush 10 ML SYR IVP (14:09)
[2022-09-02] MEDS: DAPTOmycin 500 MG in Normal Saline 50 ML 100 MG IVPB (14:14)
[2022-09-02 14:27] LABS: Anion Gap 7.6 mmol/L (3-11); BUN 17 mg/dL (7-18); CO2 28.4 mmol/L (21.0-32.0); CREATININE 0.7 mg/dL (0.55-1.02); Calcium 8.4 mg/dL (8.5-10.1); Chloride 100 mmol/L (98-107); Estimated GFR 109.98 (mL/min/1.73m2); Glucose 273 mg/dL (74-106); Potassium 3.2 mmol/L (3.5-5.1); Sodium 136 mmol/L (136-145)
[2022-09-02 14:39] LABS: Creatine Kinase 36 U/L (26-192)
[2022-09-03] MEDS: DAPTOmycin 500 MG in Normal Saline 50 ML 100 MG IVPB (12:25)
[2022-09-03] MEDS: Normal Saline Flush 10 ML SYR IVP (12:29)
[2022-09-03] MEDS: Bacitracin 1 PACKET (13:25)
== END 2022-09-21 23:59 | disposition home or self-care (01) ==
LOC: INF 01:48
PROVIDERS: Visit Provider Nurse Practitioner Family
DX: M86.172 Other acute osteomyelitis, left ankle and foot (principal)
CPT/HCPCS: 36591; 36592; 80048; 82550; 96365; J0878

== ENCOUNTER 2022-09-05 18:35 | Outpatient (CLI) | payer MEDICARE, MEDICAID, SELFPAY ==
[2022-09-05 17:00] LABS: Abs Immature Grans 0.12 10^3/uL (0.0-0.06); Absolute Basophil Count 0.07 10^3/uL (0.0-0.2); Absolute Eosinophil Count 0.24 10^3/uL (0.0-0.7); Absolute Lymphocyte Count 3.53 10^3/uL (1.2-3.4); Basophils % 0.5; ESR 20 mm/hr (0-20); Eosinophils % 1.6; HCT 44.7 % (36.0-46.0); HGB 14.3 g/dL (11.2-15.7); Immature Grans % 0.8; Lymphocytes % 23.6; MCH 25.4 pg (27.0-33.0); MCV 79 fL (80-95); MPV 11.7 fL (8.0-11.0); Monocytes % 6.4; Neutrophils % 67.1; Platelet Count 218 10^3/uL (130-400); RBC 5.64 10^6/uL (3.93-5.22); RDW-SD 43.2 fL; WBC 14.94 10^3/uL (4.4-10.8)
[2022-09-05 17:02] LABS: Absolute Monocyte Count 0.96 10^3/uL (0.1-0.8); Absolute Neutrophil Count 10.02 10^3/uL (1.2-6.7)
[2022-09-06 20:56] LABS: CRP, High Sensitivity >15.00 mg/L (See Note)
== END 2022-09-05 18:36 | disposition home or self-care (01) ==
LOC: LBO 18:36
PROVIDERS: Visit Provider Podiatrist Foot & Ankle Surgery
DX: E11.628 Type 2 diabetes mellitus with other skin complications (principal); L08.9 Local infection of the skin and subcutaneous tissue, unspecified; M86.9 Osteomyelitis, unspecified
CPT/HCPCS: 36415; 85652; 86141; 85025

== ENCOUNTER 2022-11-07 08:18 | Outpatient (CLI) | payer OTHER, MEDICAID, SELFPAY ==
--- NOTE | 2022-11-07 08:15 | RT.EKG_ITS ---
APPROVED REPORT Exam: Resting ECG Reason for Exam: Preoperative evaluation Patient Location: O HR:87 bpm ECG Measurements Heart Rate 87 AXIS WV 169 P 32 QRSd 96 QRS 30 QT 345 T 68 QTc 415 Conclusion Sinus rhythm...normal P axis, V-rate 50- 99 Normal Electrocardiogram
== END 2022-11-07 08:19 | disposition home or self-care (01) ==
LOC: DI.KIM 08:19
PROVIDERS: PCP Nurse Practitioner Family; Visit Provider Nurse Practitioner Family
DX: Z01.818 Encounter for other preprocedural examination (principal)
CPT/HCPCS: 93010

== ENCOUNTER 2023-01-17 01:27 | Outpatient (CLI) | payer OTHER, MEDICAID, SELFPAY ==
[2023-01-17 14:42] LABS: Abs Immature Grans 0.13 10^3/uL (0.0-0.06); Absolute Basophil Count 0.06 10^3/uL (0.0-0.2); Absolute Eosinophil Count 0.13 10^3/uL (0.0-0.7); Absolute Lymphocyte Count 2.87 10^3/uL (1.2-3.4); Absolute Monocyte Count 0.65 10^3/uL (0.1-0.8); Basophils % 0.5; Eosinophils % 1.1; HCT 39.9 % (36.0-46.0); HGB 12.7 g/dL (11.2-15.7); Immature Grans % 1.1; Lymphocytes % 23.4; MCH 25.1 pg (27.0-33.0); MCHC 31.8 % (32.0-36.0); MCV 79 fL (80-95); MPV 11.8 fL (8.0-11.0); Monocytes % 5.3; Neutrophils % 68.6; Platelet Count 235 10^3/uL (130-400); RBC 5.05 10^6/uL (3.93-5.22); RDW 15.4 % (11.7-14.6); RDW-SD 43.9 fL; WBC 12.25 10^3/uL (4.4-10.8)
[2023-01-17 15:03] LABS: Hemoglobin A1C 8.5 % (<5.7)
[2023-01-17 15:08] LABS: COMMENT (LAB VIEW ONLY) 46.07 mg/dL
[2023-01-17 15:13] LABS: ALT 85 U/L (14-59); AST 65 U/L (15-37); Albumin 3.2 g/dL (3.4-5.0); Alkaline Phosphatase 166 U/L (46-116); Anion Gap 6.3 mmol/L (3-11); BUN 16 mg/dL (7-18); Bilirubin, Total 0.2 mg/dL (0.2-1.0); CO2 31.7 mmol/L (21.0-32.0); CREATININE 0.9 mg/dL (0.55-1.02); Calcium 9.3 mg/dL (8.5-10.1); Calculated LDL 110 mg/dL (<100); Chloride 100 mmol/L (98-107); Cholesterol 203 mg/dL (<200); Estimated GFR 80.84 (mL/min/1.73m2); Glucose 283 mg/dL (74-106); HDL Cholesterol 28 mg/dL (40-60); Magnesium 1.4 mg/dL (1.8-2.4); Potassium 4.4 mmol/L (3.5-5.1); Sodium 138 mmol/L (136-145); Total Protein 7.5 g/dL (6.4-8.2); Triglyceride 329 mg/dL (<150)
[2023-01-17 15:27] LABS: INR 0.9 (0.9-1.1); Prothrombin Time 9.3 sec (9.3-11.0)
[2023-01-18 11:46] LABS: HIV-1/2 Ag & Ab Screen Negative (Negative)
[2023-01-20 11:48] LABS: HCV RNA Qualitative Undetected (Undetected)
[2023-01-20 14:38] LABS: ANA Interpretation Positive (Negative); ANA Titer Pattern 1:80 Homogeneous
== END 2023-01-17 01:28 | disposition home or self-care (01) ==
LOC: LBO 01:28
PROVIDERS: PCP Nurse Practitioner Family; Visit Provider Nurse Practitioner Family
DX: K74.60 Unspecified cirrhosis of liver (principal); E78.5 Hyperlipidemia, unspecified; Z11.4 Encounter for screening for human immunodeficiency virus [HIV]; E11.9 Type 2 diabetes mellitus without complications; Z79.4 Long term (current) use of insulin; R76.8 Other specified abnormal immunological findings in serum; E83.42 Hypomagnesemia; Z86.19 Personal history of other infectious and parasitic diseases
CPT/HCPCS: 36415; 80053; 80061; 87389; 87522; 82043; 82570; 83036; 83735; 85025; 85610; 86038

== ENCOUNTER 2023-01-24 15:18 | Outpatient (CLI) | payer OTHER, MEDICAID, SELFPAY ==
[2023-01-24 10:56] LABS: ALT 62 U/L (14-59); AST 42 U/L (15-37); Albumin 3.6 g/dL (3.4-5.0); Alkaline Phosphatase 157 U/L (46-116); Bilirubin, Direct 0.1 mg/dL (0.0-0.2); Bilirubin, Total 0.2 mg/dL (0.2-1.0); Magnesium 1.6 mg/dL (1.8-2.4); Total Protein 8.4 g/dL (6.4-8.2)
[2023-01-24 11:08] LABS: Lipase 22 U/L (16-77)
[2023-01-24 11:11] LABS: Iron 27 ug/dL (50-170); Total Iron Binding Capacity 396 ug/dL (250-450); Transferrin Sat 7 % (15-50)
[2023-01-24 11:19] LABS: Ferritin 69 ng/mL (8-252)
== END 2023-01-24 15:19 | disposition home or self-care (01) ==
LOC: LBO 15:19
PROVIDERS: PCP Nurse Practitioner Family; Visit Provider Nurse Practitioner Family
DX: E83.42 Hypomagnesemia (principal); R71.8 Other abnormality of red blood cells; R11.2 Nausea with vomiting, unspecified; R79.89 Other specified abnormal findings of blood chemistry
CPT/HCPCS: 36415; 80076; 83690; 82728; 83540; 83550; 83735

== ENCOUNTER 2023-03-27 02:18 | Outpatient (CLI) | payer OTHER, MEDICAID, SELFPAY ==
--- NOTE | 2023-03-27 07:17 | DI.US_ITS ---
Exam(s) US ABDOMEN LIMITED EXAM: US ABDOMEN LIMITED CLINICAL HISTORY: screening for liver cancer, CIRRHOSIS, K74.60 TECHNIQUE: Ultrasound abdomen performed using standard protocol. COMPARISON: US US ABDOMEN from 06/22/[address] ABDOMEN PELVIS WO from 05/24/2022 FINDINGS: LIVER: Enlarged at 19.5 cm. Very poor penetration of the majority of the liver. Findings consistent with hepatic steatosis. No focal liver lesions are seen.. Hepatopetal flow in portal vein. GALLBLADDER: No evidence of cholelithiasis. Sludge noted. No evidence of wall thickening. No perich olecystic fluid identified. COVARRUBIAS'S SIGN: Negative. BILIARY SYSTEM: No intrahepatic or extrahepatic biliary ductal dilation. Right kidney: Unremarkable. No hydronephrosis. Normal parenchymal thickness. No stones. PANCREAS: Partially obscured by bowel gas. ABDOMINAL AORTA AND IVC: Visualized portions normal caliber. ASCITES: None seen. IMPRESSION: Markedly echogenic liver consistent with severe hepatic steatosis. Large portions of the liver were unable to be visualized. Gallbladder sludge. DATA REPOSITORY:
== END 2023-03-27 02:38 ==
LOC: DI 02:18
PROVIDERS: PCP Nurse Practitioner Family; Visit Provider Nurse Practitioner Family
DX: K76.0 Fatty (change of) liver, not elsewhere classified (principal); Z12.89 Encounter for screening for malignant neoplasm of other sites; K82.8 Other specified diseases of gallbladder
CPT/HCPCS: 76705

== ENCOUNTER 2023-04-09 04:21 | Outpatient (CLI) | payer OTHER, MEDICAID, SELFPAY ==
[2023-04-09 15:42] LABS: Abs Immature Grans 0.06 10^3/uL (0.0-0.06); Absolute Basophil Count 0.04 10^3/uL (0.0-0.2); Absolute Monocyte Count 0.77 10^3/uL (0.1-0.8); Basophils % 0.3; Eosinophils % 0.8; HCT 46.8 % (36.0-46.0); Immature Grans % 0.5; Lymphocytes % 26.2; MCH 25.3 pg (27.0-33.0); MCHC 32.1 % (32.0-36.0); MCV 79 fL (80-95); MPV 11.9 fL (8.0-11.0); Monocytes % 5.9; Neutrophils % 66.3; Platelet Count 221 10^3/uL (130-400); RBC 5.92 10^6/uL (3.93-5.22); RDW 15.2 % (11.7-14.6); RDW-SD 43.4 fL; WBC 12.97 10^3/uL (4.4-10.8)
[2023-04-09 17:14] LABS: Ferritin 41 ng/mL (8-252); Magnesium 1.6 mg/dL (1.8-2.4)
[2023-04-09 17:48] LABS: Iron 45 ug/dL (50-170); Total Iron Binding Capacity 362 ug/dL (250-450); Transferrin Sat 12 % (15-50)
== END 2023-04-09 04:22 | disposition home or self-care (01) ==
LOC: LBO 04:21
PROVIDERS: Absent Provider Nurse Practitioner Family; PCP Nurse Practitioner Family; Visit Provider Nurse Practitioner Family
DX: E83.42 Hypomagnesemia (principal); R71.8 Other abnormality of red blood cells; D72.829 Elevated white blood cell count, unspecified
CPT/HCPCS: 36415; 82728; 83540; 83550; 83735; 85025

== ENCOUNTER → 2023-07-16 02:44 | Outpatient (CLI) | payer OTHER, SELFPAY ==
--- NOTE | 2023-07-16 08:14 | DI.RAD_ITS ---
Exam(s) XR CHEST 2V PA LATERAL EXAM: XR CHEST 2V PA LATERAL CLINICAL HISTORY: persistent cough,? ACUTE PROCESS,ASTHMA, SMOKER, R05.8,J45.41,F17.200. TECHNIQUE: 2D digital imaging was performed. COMPARISON: CT CT ABDOMEN PELVIS WO from 05/24/2022 FINDINGS: 2 views: Heart size is upper normal. The mediastinum is not widened. Left lung is clear. Mild increased density in the right lower lobe noted may be mild infiltrate seen on the frontal view but not substantiated on the lateral view may: Therefore doubtful for confluent infiltrate. There are no pleural effusions. No pulmonary edema. IMPRESSION: Mild increased markings right lung base but doubtful for confluent infiltrate. There are no pleural effusions. DATA REPOSITORY: RADIATION DOSE DELIVERED:
== END ==
PROVIDERS: PCP Nurse Practitioner Family; Visit Provider Nurse Practitioner Adult Health
DX: F17.210 Nicotine dependence, cigarettes, uncomplicated (principal); J45.41 Moderate persistent asthma with (acute) exacerbation
CPT/HCPCS: 71046

== ENCOUNTER 2023-10-23 23:26 | Emergency (ER) | payer OTHER, SELFPAY ==
--- NOTE | 2023-10-23 00:40 | DI.CT_ITS ---
Exam(s) CT LUMBAR SPINE WO EXAM: CT LUMBAR SPINE WO CLINICAL HISTORY: midline low lumbar and sacral TTP. TECHNIQUE: Imaging Protocol: Axial computed tomography images with coronal and sagittal reformatted images were created and reviewed. COMPARISON: CT CT ABDOMEN PELVIS WO from 05/24/2022 FINDINGS: Bones: No fractures or dislocations are seen. The alignment of the spine is normal including the thor acolumbar junction. Mild degenerative changes are seen in the lumbar spine. Soft tissues: The soft tissues of the visualized abdomen and chest are unremarkable. No obvious disc herniation is seen. IMPRESSION: No acute fracture or subluxation in the lumbar spine. RADIATION DOSE DELIVERED: 1,205.43mGy.cm Total DLP 1,205.43mGy.cm Total DLP DATA REPOSITORY: All CT scans at this facility are submitted to the National Radiology Data Registry (NRDR) Dose Index Registry (DIR) with the [employer] (ACR). RADIATION OPTIMIZATION: All CT scans at this facility use at least one of these dose optimization te chniques: automated exposure control; mA and/or kV adjustment per patient size (includes targeted exa ms where dose is matched to clinical indication); or iterative reconstruction.
[2023-10-23 23:31] VITALS: BP 167/85; PULSE 69; RESP 16; TEMP 36.6; O2SAT 97
--- NOTE | 2023-10-23 23:31 | W.ED.GENAD ---
HPI General Mode of arrival: ambulatory. Date/Time Provider Initiated Documentation: 10/23/23 23:29. Limitations to Documentation: no limitations. Information obtained by: patient. HPI Narrative: 42yo F with obesity, T2DM, chronic back pain, presenting for acute lower back pain. Late this afternoon was walking the dog and slipped on the ice; was able to catch her balance and did not fall but did hurt her back in the process. Since then the pain has been persistent and is now keeping her awake. Pain is severe, low-lumbar/sacral, and is intermittently associated with sharp shooting pain down her left hip into her leg and foot. No numbness, tingling, or weakness. No bowel or bladder incontinence. Has tried tylenol, ibuprofen, and baclofen at home without significant relief. She is otherwise in her usual state of health with no fevers, chills, rash, nasuea, vomiting, abdominal pain, flank pain, dysuria, hematuria, or other concerns. Related Data Home Medications Medication Instructions Recorded Confirmed hydroxyzine HCl 50 mg tablet 50 mg PO TID PRN 11/11/18 10/23/23 methadone 10 mg/mL oral concentrate 77 mg PO DAILY 02/12/19 10/23/23 atorvastatin 10 mg tablet 10 mg PO QHS #90 tabs 09/03/19 10/23/23 acetaminophen 500 mg tablet 500 - 1,000 mg (1 - 2 x 500 mg) PO 09/24/19 10/23/23 Q8H PRN fever or pain #180 tab-caps ibuprofen 800 mg tablet 800 mg PO Q8H PRN fever or pain 09/24/19 10/23/23 #30 tab-caps lurasidone 40 mg tablet (Latuda) 40 mg PO DAILY 07/15/22 10/23/23 alcohol swabs (Alcohol Pads) 1 pad topical QID #400 ea 10/25/22 10/23/23 dextroamphetamine-amphetamine 30 30 mg PO BID 10/25/22 10/23/23 mg tablet (Adderall) sumatriptan succinate 100 mg tablet 100 mg PO ONCE PRN migraine 01/16/23 10/23/23 headache #30 tab-caps nystatin 100,000 unit/gram topical 1 applic topical BID PRN fungal 01/24/23 10/23/23 powder skin infection #30 grams lorazepam 0.5 mg tablet 0.5 mg PO DAILY PRN 03/13/23 10/23/23 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 03/13/23 10/23/23 #90 tab-caps magnesium oxide 400 mg (241.3 mg 400 mg PO BID 04/18/23 10/23/23 magnesium) tablet albuterol sulfate 90 mcg/actuation 1 - 2 puff inhalation Q4-6H PRN ##1 06/20/23 10/23/23 aerosol inhaler (ProAir HFA) empagliflozin 25 mg tablet 25 mg PO DAILY AM #90 tab-caps 06/20/23 10/23/23 (Jardiance) pen needle, diabetic 32 gauge x #100 ea 06/30/23 09/18/23 (BD Ultra-Fine Yamini Pen Needle) insulin degludec 100 unit/mL (3 146 unit subcut QHS Dx: E11.9 to 08/04/23 10/23/23 mL) subcutaneous pen (Tresiba maintain HbA1c less than 7% FlexTouch U-100 insulin) metoclopramide HCl 10 mg tablet 10 mg PO TID 08/04/23 10/23/23 omeprazole 20 mg capsule,delayed 40 mg PO DAILY 08/04/23 10/23/23 release glucagon 1 mg/0.2 mL subcutaneous 1 mg (0.2 mL) subcut ONCE #0.4 mL 08/05/23 10/23/23 auto-injector ([employer] HypoPen 2-Pack) blood sugar diagnostic (Blood #400 ea 08/28/23 09/18/23 Glucose Test strips) blood-glucose meter #1 ea 08/28/23 09/18/23 lancets #400 ea 08/28/23 09/18/23 ondansetron 4 mg disintegrating See Rx Instructions .Route 09/05/23 10/23/23 tablet .COMPLEX #60 tabs insulin aspart U-100 100 unit/mL 15 unit (0.15 mL) subcut AC #15 mL 09/09/23 10/23/23 (3 mL) subcutaneous pen (Novolog FlexPen U-100 Insulin aspart) guaifenesin 1,200 mg tablet, 1,200 mg PO Q12H PRN cold symptoms 09/18/23 10/23/23 extended release 12 hr (Mucinex) #30 tabs blood-glucose sensor (Dexcom G6 #3 ea 09/25/23 Sensor device) blood-glucose transmitter (Dexcom #3 ea 09/25/23 G6 Transmitter device) semaglutide 0.25 mg or 0.5 mg (2 0.5 mg (0.736 mL) subcut QWEEK #9 09/25/23 10/23/23 mg/3 mL) subcutaneous pen injector mL (Ozempic) baclofen 10 mg tablet 10 mg PO BID PRN muscle spasm #40 10/02/23 10/23/23 tab-caps pregabalin 200 mg capsule 200 mg PO TID #270 tab-caps 10/08/23 10/23/23 Previous Rx's Medication Instructions Recorded atorvastatin 10 mg tablet 10 mg PO QHS #90 tabs 09/03/19 acetaminophen 500 mg tablet 500 - 1,000 mg (1 - 2 x 500 mg) PO 09/24/19 Q8H PRN fever or pain #180 tab-caps ibuprofen 800 mg tablet 800 mg PO Q8H PRN fever or pain 09/24/19 #30 tab-caps alcohol swabs (Alcohol Pads) 1 pad topical QID #400 ea 10/25/22 sumatriptan succinate 100 mg tablet 100 mg PO ONCE PRN migraine 01/16/23 headache #30 tab-caps nystatin 100,000 unit/gram topical 1 applic topical BID PRN fungal 01/24/23 powder skin infection #30 grams 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 03/13/23 #90 tab-caps albuterol sulfate 90 mcg/actuation 1 - 2 puff inhalation Q4-6H PRN ##1 06/20/23 aerosol inhaler (ProAir HFA) empagliflozin 25 mg tablet 25 mg PO DAILY AM #90 tab-caps 06/20/23 (Jardiance) pen needle, diabetic 32 gauge x #100 ea 06/30/23 (BD Ultra-Fine Yamini Pen Needle) glucagon 1 mg/0.2 mL subcutaneous 1 mg (0.2 mL) subcut ONCE #0.4 mL 08/05/23 auto-injector (Gvoke HypoPen 2-Pack) blood sugar diagnostic (Blood #400 ea 08/28/23 Glucose Test strips) blood-glucose meter #1 ea 08/28/23 lancets #400 ea 08/28/23 ondansetron 4 mg disintegrating See Rx Instructions .Route 09/05/23 tablet .COMPLEX #60 tabs insulin aspart U-100 100 unit/mL 15 unit (0.15 mL) subcut AC #15 mL 09/09/23 (3 mL) subcutaneous pen (Novolog FlexPen U-100 Insulin aspart) guaifenesin 1,200 mg tablet, 1,200 mg PO Q12H PRN cold symptoms 09/18/23 extended release 12 hr (Mucinex) #30 tabs blood-glucose sensor (Dexcom G6 #3 ea 09/25/23 Sensor device) blood-glucose transmitter (Dexcom #3 ea 09/25/23 G6 Transmitter device) semaglutide 0.25 mg or 0.5 mg (2 0.5 mg (0.736 mL) subcut QWEEK #9 09/25/23 mg/3 mL) subcutaneous pen injector mL (Ozempic) baclofen 10 mg tablet 10 mg PO BID PRN muscle spasm #40 10/02/23 tab-caps pregabalin 200 mg capsule 200 mg PO TID #270 tab-caps 10/08/23 Allergies Allergy/AdvReac Type Severity Reaction Status Date / Time clindamycin Allergy Severe Nausea Verified 10/23/23 23:35 Penicillins Allergy Severe lip and Unverified 10/23/23 23:35 facial swelling lamotrigine [From Lamictal] Allergy Unknown Skin Rash Verified 10/23/23 23:35 aspirin AdvReac Intermediate nausea/pain Unverified 10/23/23 23:35 General CARLOS: 4 Review of Systems Narrative: see HPI Exam Narrative Exam Narrative: General: Alert, well appearing, well nourished, in no acute distress. Head: Normocephalic, atraumatic Neck: Trachea midline, ?Neck supple. Cardiac: ?RRR, no murmurs appreciated Resp: No respiratory distress. CTAB. Abd: ?Soft, non-distended, nontender : ?No suprapubic tenderness. No CVA tenderness. Extremities: ?No deformities.? Pelvis: Stable, non-tender to lateral compression. Back: Midline low lumbar and sacral tenderness to palpation. Bilateral paraspinal tenderness in low lumbar and sacral region. High lumber parsaspinal spasm palbable on the right. Neurologic: GCS 15.? Motor- 5/5 strength symmetric bilateral upper and lower extremities Sensation- ?Intact to light touch and symmetric multiple dermatomes including upper and lower extremities. No saddle anaesthesia Reflexes- 1+/4 achilles & patellar, no clonus Gait/station: ?Normal stance.? No truncal ataxia. Steady gait with equal normal steps Medical Decision Making 42yo F with obesity, T2DM, chronic back pain, presenting for acute lower back pain. Slipped on ice, did not fall but did hurt her back while catching her balance. Unrelieved by home tylenol, ibuprofen, baclofen. Left sided hip/leg pain similar to prior episodes of sciatica. No other neurologic symptoms. History not concerning for spinal epidural abscess, cauda equina, epidural hematoma, etc. Non-toxic appearing on exam, no neurologic deficits. Does have some midline low lumbar and sacral tenderness to palpation as well as paraspinal tenderness in this area. High lumbar paraspinal muscle spasm palpable. Low suspicion for acute spinal injury however given midline tenderness will evaluate with CT. Symptoms treated with toradol, valium, lidocaine patch. CT independently reviewed, no displaced fracture on my view, agree with radiology read below. On reassessment patient reports pain has much improved. Discharged home; discharge instructions and return precautions were reviewed with patient who verbalized understanding. All questions were answered and she is in full agreement with the plan. Imaging Data Radiologic Study: Imaging: CT Scan Radiologist's impression: IMPRESSION: No acute findings. Quality:SDOH Health Related Social Needs: No Data to Display PFSH All Active Problems (Updated 10/24/23 @ 01:01 by Georgina Aguilar MD) Back pain (Acute) Diabetic cataract of right eye (Acute) Ulcer of right foot limited to breakdown of skin (Acute 04/16/23) [facility] Pod[facility]ry Ulcer of left foot, limited to breakdown of skin (Acute 04/16/23) [facility] Pod[facility]ry Iron deficiency (Acute) 03/2023 iron studies indicating deficiency (NOT anemic) Migraine (Chronic) [facility] Chronic constipation (Chronic) [facility] GI Opioid use disorder (Chronic) MAT with methadone Type 2 diabetes mellitus, with long-term current use of insulin (Chronic) With neuropathy & retinopathy (left, mild) Obesity (Chronic) Cirrhosis of liver (Chronic) Asthma (Chronic) Tobacco use disorder (Chronic) Started smoking age 9 Slow transit constipation (Chronic) [facility] 03/17/18 Poorly controlled type 2 diabetes mellitus (Chronic 03/23/18) Polypharmacy (Chronic 12/14/15) Mild nonproliferative diabetic retinopathy associated with type 2 diabetes mellitus (Chronic 01/22/16) Mental health disorder (Chronic) Pt reports being diagnosed with bipolar disorder, disassociative disorder, anxiety, & multiple personality disorder Hypomagnesemia (Chronic 09/30/16) Hyperlipidemia (Chronic 09/30/16) 10-year ASCVD risk = unable to calculate due to not being age 40+ however dx T2DM, so Rx for statin 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 Jimenez [facility] Dyspareunia in female (Chronic 07/09/17) Depressive disorder (Chronic 10/31/14) ADMISSION SUICIDAL THOUGHTS 06/13/14 OD ATTEMPTS IN PAST Chronic nausea (Chronic) EGD 04/16/16 Dr. Ferrer; multifactoral: gastroparesis, constipation, hyperglycemia, methadone Chronic fatigue (Chronic 07/19/15) Atrophic vaginitis (Chronic 07/09/17) Medical History Punctate keratitis of both eyes Ulcer of foot due to secondary diabetes Umbilical hernia (03/11/18) 03/17/2018: [facility] GI Premature surgical menopause JAD/BSO in late 20s, no HRT Hepatitis C 02/14/2016 labwork: undetectable RNA level Surgical History Status post total hysterectomy and bilateral salpingo-oophorectomy (~2006) noncancerous reasons Status post left foot surgery (10/2022) Left fourth metatarsal head excision for chronic ulcer, osteomyelitis ([facility]/Tamia Vidales DPM) Status post section (~2003) EGD (04/16/16) Dr. Ferrer Family History Mother , 46yo due to kidney & liver failure due to alcohol Substance use disorder Alcohol use disorder Father , 62yo from ALS Substance use disorder Alcohol use disorder ALS (amyotrophic lateral sclerosis) Grandmother Colon cancer Paternal Paternal Uncle Cardiac arrest Substance use disorder Alcohol and Pain Medication Abuse Social History Smoking/Tobacco Use Status: Current every day Tobacco Type: cigarettes Smoking packs per day: 1 Smoking cigarettes per day: 20.0 Tobacco: How many years used: 33 Quit status: considering quitting Smoking risk assessment performed?: Yes Alcohol Intake: never Drug use: Occasionally Substance use type: marijuana Adopted: No Caregiver/Support person: No Foster care: Yes Household members: spouse Housing: house Number of Children: 2 number of grandchildren: 1 Communication Needs: None and Corrective Lenses Education Level: high school Details: 11th grade Do you need help understanding health information?: Never 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 Pets and animals: Yes (1 dog, 4 cats) Pets and animals: cat(s) and dog(s) Sexually active: Yes Do you think of yourself as: straight/heterosexual Current gender identity: female Other: 09/2022: pt reports she is engaged What is your relationship status?: How often do you talk on the phone with friends or family?: three or more times per week How often do you get together with friends or relatives?: once per week How often do you attend roman catholic or congregation services?: decline to answer Do you belong to any clubs or organized social groups?: no Panel score (0-1 are the most socially isolated patients): 2 What type of physical activity do you participate in: none Duration: decline to answer Frequency: decline to answer Seatbelt use: always Helmet use: No (No reason to wear one) Drive intox or ride w/intox 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 Discharge Plan Disposition Patient Disposition: Home Condition: Good Discharge Details Clinical Impression: Back pain Primary Care Provider: Lorena Mann ED Provider: Georgina Aguilar Home Meds and New Rx's Prescriptions: Continued methadone 10 mg/mL concentrate 77 mg PO DAILY Patient Comments: 77 mg lurasidone [Latuda] 40 mg tablet 40 mg PO DAILY Rx Instructions: must administer with food (at least 350 calories) lorazepam 0.5 mg tablet 0.5 mg PO DAILY PRN nystatin 100,000 unit/gram powder 1 applic Topical BID PRN (Reason: fungal skin infection) Qty: 30 3RF Rx Instructions: Apply powder to affected area under R breast twice daily valacyclovir 500 mg tablet 500 mg PO DAILY Qty: 90 3RF magnesium oxide 400 mg (241.3 mg magnesium) tablet 400 mg PO BID Jardiance 25 mg tablet 25 mg PO DAILY AM Qty: 90 3RF Rx Instructions: Administer once daily in the morning, with or without food albuterol sulfate [ProAir HFA] 90 mcg/actuation HFA aerosol inhaler 1 - 2 puff Inhalation Q4-6H PRN Qty: 1 1RF Rx Instructions: DISPENSE ALBUTEROL INHALER BRAND COVERED BY INSURANCE insulin degludec [Tresiba FlexTouch U-100] 100 unit/mL (3 mL) insulin pen 146 unit subcut QHS omeprazole 20 mg capsule,delayed release(DR/EC) 40 mg PO DAILY metoclopramide HCl 10 mg tablet 10 mg PO TID Rx Instructions: administer 30 minutes before meals dextroamphetamine-amphetamine [Adderall] 30 mg tablet 30 mg PO BID Rx Instructions: administer doses at least 4-6 hours apart alcohol swabs [Alcohol Pads] Pads, Medicated 1 pad Topical QID Qty: 400 3RF guaifenesin [Mucinex] 1,200 mg tablet extended release 12hr 1,200 mg PO Q12H PRN (Reason: cold symptoms) Qty: 30 1RF hydroxyzine HCl 50 mg tablet 50 mg PO TID PRN Patient Comments: note dated 10/27/18 [facility] [place] Trudy Ray [facility] [place] atorvastatin 10 mg tablet 10 mg PO QHS Qty: 90 0RF acetaminophen 500 mg tablet 500 - 1,000 mg PO Q8H MDD 3000 mg PRN (Reason: fever or pain) Qty: 180 0RF Rx Instructions: 1 month supply ibuprofen 800 mg tablet 800 mg PO Q8H PRN (Reason: fever or pain) Qty: 30 0RF Rx Instructions: 1 month supply; take acetaminophen first, only take ibuprofen if acetaminophen doesn't work sumatriptan succinate 100 mg tablet 100 mg PO ONCE MDD 200 mg PRN (Reason: migraine headache) Qty: 30 0RF Rx Instructions: A second dose can be taken if no response after 2 hours (DME) pen needle, diabetic [BD Ultra-Fine Yamini Pen Needle] 32 gauge x 5/32 needle See Rx Instructions .ROUTE .COMPLEX Qty: 100 0RF Dose Instruction: USE TO ADMINISTER INSULIN ONCE DAILY Rx Instructions: USE TO ADMINISTER INSULIN ONCE DAILY Gvoke HypoPen 2-Pack 1 mg/0.2 mL auto-injector 1 mg subcut ONCE Qty: 0.4 1RF Rx Instructions: HYPOGLYCEMIA; as a single dose; may repeat once after 15 minutes if no response (DME) blood-glucose meter Misc See Rx Instructions .Route Qty: 1 0RF Rx Instructions: One Touch meter (DME) lancets Misc See Rx Instructions .ROUTE .MEDSUPPLY Qty: 400 3RF Rx Instructions: As directed to check blood glucose four times daily. On insulin. Dispense one touch ultra (DME) Blood Glucose Test Strip See Rx Instructions .MEDSUPPLY Qty: 400 3RF Rx Instructions: As directed to check blood glucose four times daily. On insulin. Dispense one touch ultra ondansetron 4 mg tablet,disintegrating See Rx Instructions .ROUTE .COMPLEX Qty: 60 0RF Dose Instruction: DISSOLVE TWO TABLETS ON THE TONGUE TWICE A DAY NEEDED FOR FOR NAUSEA AND VOMITING Rx Instructions: DISSOLVE TWO TABLETS ON THE TONGUE TWICE A DAY NEEDED FOR FOR NAUSEA AND VOMITING insulin aspart U-100 [Novolog FlexPen U-100 Insulin] 100 unit/mL (3 mL) insulin pen 15 unit subcut AC Qty: 15 3RF Rx Instructions: 10-15 units sliding scale before meals Ozempic 0.25 mg or 0.5 mg (2 mg/3 mL) pen injector 0.5 mg subcut QWEEK Qty: 9 0RF Rx Instructions: Dose reduction (intolerance of 1mg) 09/25/23 (DME) Dexcom G6 Transmitter Device See Rx Instructions .Route Qty: 3 3RF Rx Instructions: As directed (DME) Dexcom G6 Sensor Device See Rx Instructions .Route Qty: 3 3RF Rx Instructions: As directed baclofen 10 mg tablet 10 mg PO BID PRN (Reason: muscle spasm) Qty: 40 0RF pregabalin 200 mg capsule 200 mg PO TID Qty: 270 0RF Discharge Instructions Instructions: Back Pain (ED) Additional Instructions: Continue to take your medications at home as normal. Call your primary care doctor today to schedule an appointment within the next 5 days to follow up on your visist here. Return to the emergency department for new or worsening symptoms including uncontrolled pain, inability to walk, numbness or weakness, urinary incontinence or retention, or if you have any other concerns. Referrals: Lorena Mann NP [Primary Care Provider] -
[2023-10-24] MEDS: diazePAM 5 MG TAB PO
[2023-10-24] MEDS: Ketorolac 15 MG/ML VIAL IM
--- NOTE | 2023-10-24 00:48 | DI.VRAD_ITS ---
PROCEDURE INFORMATION: Exam: CT Lumbar Spine Without Contrast Exam date and time: 10/24/2023 12:32 AM Age: 42 years old Clinical indication: Low back pain TECHNIQUE: Imaging protocol: Computed tomography of the lumbar spine without contrast. COMPARISON: CT ABDOMEN PELVIS WO 05/24/2022 2:43 AM FINDINGS: Bones/joints: No acute fracture. Normal alignment. Minimal degenerative changes .. Soft tissues: Unremarkable. IMPRESSION: No acute findings. Dictated and Authenticated by: Hussain Whipple MD. Ordering:JONATHAN Erickson MD
[2023-10-24] MEDS: Lidocaine 5% Patch 2 PATCH TP (00:52)
== END 2023-10-24 01:13 | disposition home or self-care (01) ==
PROVIDERS: Emergency Provider Student in an Organized Health Care Education/Training Program; PCP Nurse Practitioner Adult Health
DX: M54.50 Low back pain, unspecified (principal); E11.3299 Type 2 diabetes mellitus with mild nonproliferative diabetic retinopathy without macular edema, unspecified eye; F17.210 Nicotine dependence, cigarettes, uncomplicated; Z79.4 Long term (current) use of insulin; Z79.85 Long-term (current) use of injectable non-insulin antidiabetic drugs
CPT/HCPCS: 81025; 96372; 99284; 72131; J1885

== ENCOUNTER 2023-11-08 14:39 | Emergency (ER) | payer OTHER, SELFPAY ==
[2023-11-08 14:41] VITALS: BP 147/88; PULSE 93; RESP 18; TEMP 36.1; O2SAT 96
--- NOTE | 2023-11-08 14:48 | ED.GENADUL_ITS ---
HPI General Mode of arrival: ambulatory . Date/Time Provider Initiated Documentation: 11/08/23 14:40 . Limitations to Documentation: no limitations . Information obtained by: patient . History of Present Illness 43 year old F presents to the emergency department with the chief complaint of Back pain, described as moderate, Quality is described as aching, Patient reports no radiation. Patient started experiencing this week(s) (3) and it has been constant. No relieving factors improve symptom(s), No exacerbating factors reported . Patient notes denies chest pain, fever/chills and shortness of breath. Related Data Home Medications Medication Instructions Recorded Confirmed hydroxyzine HCl 50 mg tablet 50 mg PO TID PRN 11/11/18 11/08/23 methadone 10 mg/mL oral concentrate 77 mg PO DAILY 02/12/19 11/08/23 atorvastatin 10 mg tablet 10 mg PO QHS #90 tabs 09/03/19 11/08/23 acetaminophen 500 mg tablet 500 - 1,000 mg (1 - 2 x 500 mg) PO 09/24/19 11/08/23 Q8H PRN fever or pain #180 tab-caps alcohol swabs (Alcohol Pads) 1 pad topical QID #400 ea 10/25/22 11/08/23 dextroamphetamine-amphetamine 30 30 mg PO BID 10/25/22 11/08/23 mg tablet (Adderall) nystatin 100,000 unit/gram topical 1 applic topical BID PRN fungal 01/24/23 11/08/23 powder skin infection #30 grams lorazepam 0.5 mg tablet 0.5 mg PO DAILY PRN 03/13/23 11/08/23 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 03/13/23 11/08/23 #90 tab-caps magnesium oxide 400 mg (241.3 mg 400 mg PO BID 04/18/23 11/08/23 magnesium) tablet albuterol sulfate 90 mcg/actuation 1 - 2 puff inhalation Q4-6H PRN ##1 06/20/23 11/08/23 aerosol inhaler (ProAir HFA) empagliflozin 25 mg tablet 25 mg PO DAILY AM #90 tab-caps 06/20/23 11/08/23 (Jardiance) pen needle, diabetic 32 gauge x #100 ea 10/09/23 02/17/24 5/32 (BD Ultra-Fine Yamini Pen Needle) insulin degludec 100 unit/mL (3 146 unit subcut QHS Dx: E11.9 to 08/04/23 11/08/23 mL) subcutaneous pen (Tresiba maintain HbA1c less than 7% FlexTouch U-100 insulin) metoclopramide HCl 10 mg tablet 10 mg PO TID 08/04/23 11/08/23 omeprazole 20 mg capsule,delayed 40 mg PO DAILY 08/04/23 11/08/23 release glucagon 1 mg/0.2 mL subcutaneous 1 mg (0.2 mL) subcut ONCE #0.4 mL 08/05/23 11/08/23 auto-injector (Clear Advantage Collar HypoPen 2-Pack) blood sugar diagnostic (Blood #400 ea 08/28/23 11/08/23 Glucose Test strips) blood-glucose meter #1 ea 08/28/23 11/08/23 lancets #400 ea 08/28/23 11/08/23 ondansetron 4 mg disintegrating See Rx Instructions .Route 09/05/23 11/08/23 tablet .COMPLEX #60 tabs insulin aspart U-100 100 unit/mL 15 unit (0.15 mL) subcut AC #15 mL 09/09/23 11/08/23 (3 mL) subcutaneous pen (Novolog FlexPen U-100 Insulin aspart) guaifenesin 1,200 mg tablet, 1,200 mg PO Q12H PRN cold symptoms 09/18/23 11/08/23 extended release 12 hr (Mucinex) #30 tabs blood-glucose sensor (Dexcom G6 #3 ea 09/25/23 11/08/23 Sensor device) blood-glucose transmitter (Dexcom #3 ea 09/25/23 11/08/23 G6 Transmitter device) baclofen 10 mg tablet 10 mg PO BID PRN muscle spasm #40 10/02/23 11/08/23 tab-caps pregabalin 200 mg capsule 200 mg PO TID #270 tab-caps 10/08/23 11/08/23 lurasidone 40 mg tablet (Latuda) 120 mg PO DAILY 10/24/23 11/08/23 celecoxib 200 mg capsule (Celebrex) 200 mg PO BID #30 caps 10/27/23 11/08/23 sumatriptan succinate 100 mg tablet 100 mg PO ONCE PRN migraine 10/29/23 11/08/23 headache #30 tab-caps diazepam 5 mg tablet (Valium) 5 mg PO BID PRN muscle spasm; rest 11/08/23 #10 tabs Previous Rx's Medication Instructions Recorded atorvastatin 10 mg tablet 10 mg PO QHS #90 tabs 09/03/19 acetaminophen 500 mg tablet 500 - 1,000 mg (1 - 2 x 500 mg) PO 09/24/19 Q8H PRN fever or pain #180 tab-caps alcohol swabs (Alcohol Pads) 1 pad topical QID #400 ea 10/25/22 nystatin 100,000 unit/gram topical 1 applic topical BID PRN fungal 01/24/23 powder skin infection #30 grams 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 03/13/23 #90 tab-caps albuterol sulfate 90 mcg/actuation 1 - 2 puff inhalation Q4-6H PRN ##1 06/20/23 aerosol inhaler (ProAir HFA) empagliflozin 25 mg tablet 25 mg PO DAILY AM #90 tab-caps 06/20/23 (Jardiance) pen needle, diabetic 32 gauge x #100 ea 06/30/23 (BD Ultra-Fine Yamini Pen Needle) glucagon 1 mg/0.2 mL subcutaneous 1 mg (0.2 mL) subcut ONCE #0.4 mL 08/05/23 auto-injector (Clear Advantage Collar HypoPen 2-Pack) blood sugar diagnostic (Blood #400 ea 08/28/23 Glucose Test strips) blood-glucose meter #1 ea 08/28/23 lancets #400 ea 08/28/23 ondansetron 4 mg disintegrating See Rx Instructions .Route 09/05/23 tablet .COMPLEX #60 tabs insulin aspart U-100 100 unit/mL 15 unit (0.15 mL) subcut AC #15 mL 09/09/23 (3 mL) subcutaneous pen (Novolog FlexPen U-100 Insulin aspart) guaifenesin 1,200 mg tablet, 1,200 mg PO Q12H PRN cold symptoms 09/18/23 extended release 12 hr (Mucinex) #30 tabs blood-glucose sensor (Dexcom G6 #3 ea 09/25/23 Sensor device) blood-glucose transmitter (Dexcom #3 ea 09/25/23 G6 Transmitter device) baclofen 10 mg tablet 10 mg PO BID PRN muscle spasm #40 10/02/23 tab-caps pregabalin 200 mg capsule 200 mg PO TID #270 tab-caps 10/08/23 celecoxib 200 mg capsule (Celebrex) 200 mg PO BID #30 caps 10/27/23 sumatriptan succinate 100 mg tablet 100 mg PO ONCE PRN migraine 10/29/23 headache #30 tab-caps diazepam 5 mg tablet (Valium) 5 mg PO BID PRN muscle spasm; rest 11/08/23 #10 tabs Allergies Allergy/AdvReac Type Severity Reaction Status Date / Time Penicillins Allergy Severe lip and Unverified 11/08/23 14:53 facial swelling lamotrigine [From Lamictal] Allergy Unknown Skin Rash Verified 11/08/23 14:53 clindamycin AdvReac Severe Nausea & Verified 11/08/23 14:53 vomiting aspirin AdvReac Intermediate nausea/pain Unverified 11/08/23 14:53 General Stated Complaint: Nk/Back Pain CARLOS: 3 Review of Systems All systems reviewed & are unremarkable except as noted in HPI and below Constitutional Constitutional: Denies chills, Denies fever(s) and Denies weakness Cardiovascular Cardiovascular: Denies chest pain and Denies dyspnea Respiratory Respiratory: Denies cough and Denies dyspnea Gastrointestinal Gastrointestinal: Denies abdominal pain, Denies nausea and Denies vomiting Genitourinary Genitourinary: Denies dysuria Musculoskeletal Musculoskeletal: Denies joint swelling Integumentary/Breasts Skin/Breast: Denies rash Neurologic Neurologic: Denies weakness Exam Const General: no acute distress Orientation: alert [facility] Head: normal to inspection Ears: external ears normal General nose exam: external nose normal Mouth: moist mucous membranes Eyes General: appearance normal, both eyes and all related structures Neck Neck: normal visual inspection Resp Effort & Inspection: normal respiratory effort and able to speak in complete sentences Cardio Rate: regular rate GI Palpation: soft and nontender Back/Spine/Pelvis Back: no CVA tenderness, No mass, No erythema and No warmth Skin General skin exam: no rashes or lesions noted Neuro General: patient alert and patient oriented x3 Extrem General: normal to inspection Psych Mental Status: mental status grossly normal Course Vital Signs Vital signs: Vital Signs Temperature 36.1 C L 11/08/23 14:41 Pulse 93 H 11/08/23 14:41 Respiratory Rate 18 11/08/23 14:41 Blood Pressure 147/88 H 11/08/23 14:41 Pulse Oximetry 96 11/08/23 14:41 Temperature 36.1 C L 11/08/23 14:41 Temperature Source Skin 11/08/23 14:41 Pulse 93 H 11/08/23 14:41 Respiratory Rate 18 11/08/23 14:41 Blood Pressure 147/88 H 11/08/23 14:41 Blood Pressure Position Sitting 11/08/23 14:41 Pulse Oximetry 96 11/08/23 14:41 Oxygen Delivery Method Room Air 11/08/23 14:41 Oxygen Flow Rate 0 11/08/23 14:41 Pain Level 9 11/08/23 14:41 Medical Decision Making 43-year-old female with a history of chronic pain, diabetes, who has had chronic back pain and acutely worsened a few weeks ago after she had a slip and fall with negative CT lumbar spine imaging, comes in with continued pain. She localizes the pain to the lumbar region, denies any falls or trauma since the fall 2 to 3 weeks ago. She has been getting Toradol and Valium with her PCP, ran out of her Valium few days ago and since then the pains been increasing in the lower lumbar region. She denies any fevers, denies IV drug use. No issues with urination. She is ambulating with a normal gait on arrival, alert in no distress, localizes the pain across the entire lumbar region. There is no erythema, no warmth, no step-off or palpable deformities of the lumbar region, no saddle anesthesia, normal sensation distally in the lower extremities. Normal cap refill in the extremities. Suspect musculoskeletal back pain, no findings on exam or history to suggest cauda equina or spinal epidural abscess do not feel emergent MRI imaging indicated. Given she had CT imaging when she was here last time and has not had any new trauma doubt fracture so do not feel repeat CT or x-rays indicated. Will treat her symptoms with Toradol and Valium as she has had success with this in the past and reassess Patient feels better, requesting discharge, stable exam. She does ask for short course of Valium which seemed to help her back pain, will prescribe this and she understands not to take her baclofen or Ativan while taking this. Advised to follow-up with primary care provider within 1 to 2 weeks if symptoms continue and return precautions given Differential Diagnosis Differential Diagnosis: Chronic back pain, muscle spasm, disc herniation Quality:SDOH Health Related Social Needs: No Data to Display PFSH All Active Problems (Updated 11/08/23 @ 14:59 by Hussain Espinal MD) Lumbar back pain (Acute) Muscle spasm of left lower extremity (Acute) Muscle spasm of back (Acute) Back pain (Acute) Diabetic cataract of right eye (Acute) Ulcer of right foot limited to breakdown of skin (Acute 04/16/23) [facility] Ulcer of left foot, limited to breakdown of skin (Acute 04/16/23) [facility] Iron deficiency (Acute) 03/2023 iron studies indicating deficiency (NOT anemic) Migraine (Chronic) [facility] Chronic constipation (Chronic) [facility] Opioid use disorder (Chronic) MAT with methadone Type 2 diabetes mellitus, with long-term current use of insulin (Chronic) With neuropathy & retinopathy (left, mild) Obesity (Chronic) Cirrhosis of liver (Chronic) Asthma (Chronic) Tobacco use disorder (Chronic) Started smoking age 9 Slow transit constipation (Chronic) [facility] 03/17/18 Poorly controlled type 2 diabetes mellitus (Chronic 03/23/18) Polypharmacy (Chronic 12/14/15) Mild nonproliferative diabetic retinopathy associated with type 2 diabetes mellitus (Chronic 01/22/16) Mental health disorder (Chronic) Pt reports being diagnosed with bipolar disorder, disassociative disorder, anxiety, & multiple personality disorder Hypomagnesemia (Chronic 09/30/16) Hyperlipidemia (Chronic 09/30/16) 10-year ASCVD risk = unable to calculate due to not being age 40+ however dx T2DM, so Rx for statin 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 [facility] Dyspareunia in female (Chronic 07/09/17) Depressive disorder (Chronic 10/31/14) ADMISSION SUICIDAL THOUGHTS 06/13/14 OD ATTEMPTS IN PAST Chronic nausea (Chronic) EGD 04/16/16 Dr. Ferrer; multifactoral: gastroparesis, constipation, hyperglycemia, methadone Chronic fatigue (Chronic 07/19/15) Atrophic vaginitis (Chronic 07/09/17) Medical History Punctate keratitis of both eyes Ulcer of foot due to secondary diabetes Umbilical hernia (03/11/18) 03/17/2018: [facility] Premature surgical menopause JAD/BSO in late 20s, no HRT Hepatitis C 02/14/2016 labwork: undetectable RNA level Surgical History Status post total hysterectomy and bilateral salpingo-oophorectomy (~2006) noncancerous reasons Status post left foot surgery (10/2022) Left fourth metatarsal head excision for chronic ulcer, osteomyelitis ([facility]/Tamia Vidales, DPM) Status post section (~2003) EGD (04/16/16) Dr. Ferrer Family History Mother , 46yo due to kidney & liver failure due to alcohol Substance use disorder Alcohol use disorder Father , 62yo from ALS Substance use disorder Alcohol use disorder ALS (amyotrophic lateral sclerosis) Grandmother Colon cancer Paternal Paternal Uncle Cardiac arrest Substance use disorder Alcohol and Pain Medication Abuse Social History Smoking/Tobacco Use Status: Current every day Tobacco Type: cigarettes Smoking packs per day: 1 Smoking cigarettes per day: 20.0 Tobacco: How many years used: 33 Quit status: considering quitting Smoking risk assessment performed?: Yes Alcohol Intake: never Drug use: Occasionally Substance use type: marijuana Adopted: No Caregiver/Support person: No Foster care: Yes Household members: spouse Housing: house Number of Children: 2 number of grandchildren: 1 Communication Needs: None and Corrective Lenses Education Level: high school Details: 11th grade Do you need help understanding health information?: Never 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 Pets and animals: Yes (1 dog, 4 cats) Pets and animals: cat(s) and dog(s) Sexually active: Yes Do you think of yourself as: straight/heterosexual Current gender identity: female Other: 09/2022: pt reports she is engaged What is your relationship status?: How often do you talk on the phone with friends or family?: three or more times per week How often do you get together with friends or relatives?: once per week How often do you attend alevism or gnosticist services?: decline to answer Do you belong to any clubs or organized social groups?: no Panel score (0-1 are the most socially isolated patients): 2 What type of physical activity do you participate in: none Duration: decline to answer Frequency: decline to answer Seatbelt use: always Helmet use: No (No reason to wear one) Drive intox or ride w/intox transfer 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 Discharge Plan Disposition Patient Disposition: Home Condition: Stable Discharge Details Clinical Impression: Lumbar back pain Primary Care Provider: Lorena Mann ED Provider: Hussain Espinal Home Meds and New Rx's Prescriptions: Continued methadone 10 mg/mL concentrate 77 mg PO DAILY Patient Comments: 77 mg lorazepam 0.5 mg tablet 0.5 mg PO DAILY PRN lurasidone [Latuda] 40 mg tablet 120 mg PO DAILY Patient Comments: per larissa per pt report, 10/24/23, ik - maybe too much? but HAS helped - Rx Instructions: must administer with food (at least 350 calories) nystatin 100,000 unit/gram powder 1 applic Topical BID PRN (Reason: fungal skin infection) Qty: 30 3RF Rx Instructions: Apply powder to affected area under R breast twice daily valacyclovir 500 mg tablet 500 mg PO DAILY Qty: 90 3RF magnesium oxide 400 mg (241.3 mg magnesium) tablet 400 mg PO BID Jardiance 25 mg tablet 25 mg PO DAILY AM Qty: 90 3RF Rx Instructions: Administer once daily in the morning, with or without food albuterol sulfate [ProAir HFA] 90 mcg/actuation HFA aerosol inhaler 1 - 2 puff Inhalation Q4-6H PRN Qty: 1 1RF Rx Instructions: DISPENSE ALBUTEROL INHALER BRAND COVERED BY INSURANCE insulin degludec [Tresiba FlexTouch U-100] 100 unit/mL (3 mL) insulin pen 146 unit subcut QHS omeprazole 20 mg capsule,delayed release(DR/EC) 40 mg PO DAILY metoclopramide HCl 10 mg tablet 10 mg PO TID Rx Instructions: administer 30 minutes before meals celecoxib [Celebrex] 200 mg capsule 200 mg PO BID Qty: 30 0RF Rx Instructions: For back & leg pain s/p fall (do not mix with other NSAIDs) dextroamphetamine-amphetamine [Adderall] 30 mg tablet 30 mg PO BID Rx Instructions: administer doses at least 4-6 hours apart alcohol swabs [Alcohol Pads] Pads, Medicated 1 pad Topical QID Qty: 400 3RF guaifenesin [Mucinex] 1,200 mg tablet extended release 12hr 1,200 mg PO Q12H PRN (Reason: cold symptoms) Qty: 30 1RF sumatriptan succinate 100 mg tablet 100 mg PO ONCE MDD 200 mg PRN (Reason: migraine headache) Qty: 30 2RF Rx Instructions: A second dose can be taken if no response after 2 hours hydroxyzine HCl 50 mg tablet 50 mg PO TID PRN Patient Comments: note dated 10/27/18 [facility] Trudyhaley Hebertdario cgc atorvastatin 10 mg tablet 10 mg PO QHS Qty: 90 0RF acetaminophen 500 mg tablet 500 - 1,000 mg PO Q8H MDD 3000 mg PRN (Reason: fever or pain) Qty: 180 0RF Rx Instructions: 1 month supply ([facility]) pen needle, diabetic [BD Ultra-Fine Yamini Pen Needle] 32 gauge x 5/32 needle See Rx Instructions .ROUTE .COMPLEX Qty: 100 0RF Dose Instruction: USE TO ADMINISTER INSULIN ONCE DAILY Rx Instructions: USE TO ADMINISTER INSULIN ONCE DAILY Gvoke HypoPen 2-Pack 1 mg/0.2 mL auto-injector 1 mg subcut ONCE Qty: 0.4 1RF Rx Instructions: HYPOGLYCEMIA; as a single dose; may repeat once after 15 minutes if no response (DME) blood-glucose meter Misc See Rx Instructions .Route Qty: 1 0RF Rx Instructions: One Touch meter (DME) lancets Misc See Rx Instructions .ROUTE .MEDSUPPLY Qty: 400 3RF Rx Instructions: As directed to check blood glucose four times daily. On insulin. Dispense one touch ultra (DME) Blood Glucose Test Strip See Rx Instructions .MEDSUPPLY Qty: 400 3RF Rx Instructions: As directed to check blood glucose four times daily. On insulin. Dispense one touch ultra ondansetron 4 mg tablet,disintegrating See Rx Instructions .ROUTE .COMPLEX Qty: 60 0RF Dose Instruction: DISSOLVE TWO TABLETS ON THE TONGUE TWICE A DAY NEEDED FOR FOR NAUSEA AND VOMITING Rx Instructions: DISSOLVE TWO TABLETS ON THE TONGUE TWICE A DAY NEEDED FOR FOR NAUSEA AND VOMITING insulin aspart U-100 [Novolog FlexPen U-100 Insulin] 100 unit/mL (3 mL) insulin pen 15 unit subcut AC Qty: 15 3RF Rx Instructions: 10-15 units sliding scale before meals (DME) Dexcom G6 Transmitter Device See Rx Instructions .Route Qty: 3 3RF Rx Instructions: As directed (DME) Dexcom G6 Sensor Device See Rx Instructions .Route Qty: 3 3RF Rx Instructions: As directed baclofen 10 mg tablet 10 mg PO BID PRN (Reason: muscle spasm) Qty: 40 0RF pregabalin 200 mg capsule 200 mg PO TID Qty: 270 0RF diazepam [Valium] 5 mg tablet 5 mg PO BID MDD 10mg PRN (Reason: muscle spasm; rest) Qty: 10 0RF Rx Instructions: ACUTE back spasm s/p fall - instead of BACLOFEN Discharge Instructions Instructions: Lower Back Exercises (ED) Additional Instructions: Follow-up with your primary care provider within 1 to 2 weeks. Avoid taking your lorazepam and baclofen while taking the diazepam If you feel more ill, have severe worsening pain, or have new symptoms such as high fevers return to the emergency department for reevaluation
[2023-11-08] MEDS: diazePAM 10 MG/2 ML SYR 5 MG IM (15:02)
[2023-11-08] MEDS: Ketorolac 60 MG/2 ML VIAL IM (15:02)
== END 2023-11-08 15:34 | disposition home or self-care (01) ==
PROVIDERS: Emergency Provider Emergency Medicine; PCP Nurse Practitioner Adult Health
DX: M54.50 Low back pain, unspecified (principal)
CPT/HCPCS: 96372; 99284; J1885; J3360

== ENCOUNTER 2023-11-18 03:12 | Outpatient (CLI) | payer OTHER, SELFPAY ==
[2023-11-18 08:14] LABS: HCT 41.4 % (36.0-46.0); HGB 13.2 g/dL (11.2-15.7); MCH 25.4 pg (27.0-33.0); MCHC 31.9 % (32.0-36.0); MCV 80 fL (80-95); MPV 11.5 fL (8.0-11.0); Platelet Count 224 10^3/uL (130-400); RDW 16.8 % (11.7-14.6); RDW-SD 47.7 fL; WBC 10.67 10^3/uL (4.4-10.8)
[2023-11-18 08:35] LABS: Hemoglobin A1C 12.3 % (<5.7)
[2023-11-18 08:51] LABS: ALT 27 U/L (14-59); AST 22 U/L (15-37); Albumin 2.9 g/dL (3.4-5.0); Alkaline Phosphatase 116 U/L (46-116); Anion Gap 6.8 mmol/L (3-11); BUN 21 mg/dL (7-18); Bilirubin, Total 0.2 mg/dL (0.2-1.0); CO2 29.2 mmol/L (21.0-32.0); Calcium 9.5 mg/dL (8.5-10.1); Chloride 100 mmol/L (98-107); Cholesterol 220 mg/dL (<200); Glucose 361 mg/dL (74-106); HDL Cholesterol 33 mg/dL (40-60); Potassium 4.5 mmol/L (3.5-5.1); Sodium 136 mmol/L (136-145); Total Protein 6.6 g/dL (6.4-8.2); Triglyceride 524 mg/dL (<150)
[2023-11-18 09:00] LABS: LDL CHOLESTEROL 107 mg/dL (<100)
[2023-11-18 09:18] LABS: Microalb ug/mg Crea 27.2 ug/mg Cr
== END 2023-11-18 03:13 | disposition home or self-care (01) ==
LOC: LBO 03:13
PROVIDERS: Absent Provider Nurse Practitioner Adult Health; PCP Nurse Practitioner Adult Health; Referring Provider Nurse Practitioner Adult Health; Visit Provider Nurse Practitioner Adult Health
DX: Z79.4 Long term (current) use of insulin (principal); E11.9 Type 2 diabetes mellitus without complications
CPT/HCPCS: 36415; 80053; 80061; 83721; 85027; 82043; 82570; 83036

== ENCOUNTER 2023-11-21 08:49 | Emergency (ER) | payer OTHER, SELFPAY ==
[2023-11-21 08:52] VITALS: BP 179/99; PULSE 90; RESP 20; TEMP 37; O2SAT 96
[2023-11-21 09:05] VITALS: BP 175/95; PULSE 86; RESP 17; TEMP 37.3; O2SAT 95
--- NOTE | 2023-11-21 09:11 | ED.GENADUL_ITS ---
Discharge Plan Disposition Patient Disposition: Home Discharge Details Clinical Impression: Migraine Primary Care Provider: Lorena Mann ED Provider: Lin Covarrubias Home Meds and New Rx's Prescriptions: No Action methadone 10 mg/mL concentrate 77 mg PO DAILY Patient Comments: 77 mg lorazepam 0.5 mg tablet 0.5 mg PO DAILY PRN lurasidone [Latuda] 40 mg tablet 120 mg PO DAILY Patient Comments: per larissa per pt report, 10/24/23, ik - maybe too much? but HAS helped - Rx Instructions: must administer with food (at least 350 calories) nystatin 100,000 unit/gram powder 1 applic Topical BID PRN (Reason: fungal skin infection) Qty: 30 3RF Rx Instructions: Apply powder to affected area under R breast twice daily valacyclovir 500 mg tablet 500 mg PO DAILY Qty: 90 3RF magnesium oxide 400 mg (241.3 mg magnesium) tablet 400 mg PO BID Jardiance 25 mg tablet 25 mg PO DAILY AM Qty: 90 3RF Rx Instructions: Administer once daily in the morning, with or without food albuterol sulfate [ProAir HFA] 90 mcg/actuation HFA aerosol inhaler 1 - 2 puff Inhalation Q4-6H PRN Qty: 1 1RF Rx Instructions: DISPENSE ALBUTEROL INHALER BRAND COVERED BY INSURANCE insulin degludec [Tresiba FlexTouch U-100] 100 unit/mL (3 mL) insulin pen 146 unit subcut QHS omeprazole 20 mg capsule,delayed release(DR/EC) 40 mg PO DAILY metoclopramide HCl 10 mg tablet 10 mg PO TID Rx Instructions: administer 30 minutes before meals dextroamphetamine-amphetamine [Adderall] 30 mg tablet 30 mg PO BID Rx Instructions: administer doses at least 4-6 hours apart alcohol swabs [Alcohol Pads] Pads, Medicated 1 pad Topical QID Qty: 400 3RF guaifenesin [Mucinex] 1,200 mg tablet extended release 12hr 1,200 mg PO Q12H PRN (Reason: cold symptoms) Qty: 30 1RF sumatriptan succinate 100 mg tablet 100 mg PO ONCE MDD 200 mg PRN (Reason: migraine headache) Qty: 30 2RF Rx Instructions: A second dose can be taken if no response after 2 hours hydroxyzine HCl 50 mg tablet 50 mg PO TID PRN Patient Comments: note dated 10/27/18 [facility] Trudy Ray cgc atorvastatin 10 mg tablet 10 mg PO QHS Qty: 90 0RF acetaminophen 500 mg tablet 500 - 1,000 mg PO Q8H MDD 3000 mg PRN (Reason: fever or pain) Qty: 180 0RF Rx Instructions: 1 month supply (DME) pen needle, diabetic [BD Ultra-Fine Yamini Pen Needle] 32 gauge x 5/32 needle See Rx Instructions .ROUTE .COMPLEX Qty: 100 0RF Dose Instruction: USE TO ADMINISTER INSULIN ONCE DAILY Rx Instructions: USE TO ADMINISTER INSULIN ONCE DAILY Gvoke HypoPen 2-Pack 1 mg/0.2 mL auto-injector 1 mg subcut ONCE Qty: 0.4 1RF Rx Instructions: HYPOGLYCEMIA; as a single dose; may repeat once after 15 minutes if no response (DME) blood-glucose meter Misc See Rx Instructions .Route Qty: 1 0RF Rx Instructions: One Touch meter (DME) lancets Misc See Rx Instructions .ROUTE .MEDSUPPLY Qty: 400 3RF Rx Instructions: As directed to check blood glucose four times daily. On insulin. Dispense one touch ultra (DME) Blood Glucose Test Strip See Rx Instructions .MEDSUPPLY Qty: 400 3RF Rx Instructions: As directed to check blood glucose four times daily. On insulin. Dispense one touch ultra insulin aspart U-100 [Novolog FlexPen U-100 Insulin] 100 unit/mL (3 mL) insulin pen 15 unit subcut AC Qty: 15 3RF Rx Instructions: 10-15 units sliding scale before meals (DME) Dexcom G6 Transmitter Device See Rx Instructions .Route Qty: 3 3RF Rx Instructions: As directed (DME) Dexcom G6 Sensor Device See Rx Instructions .Route Qty: 3 3RF Rx Instructions: As directed baclofen 10 mg tablet 10 mg PO BID PRN (Reason: muscle spasm) Qty: 40 0RF pregabalin 200 mg capsule 200 mg PO TID Qty: 270 0RF celecoxib 200 mg capsule See Rx Instructions .ROUTE .COMPLEX Qty: 30 0RF Dose Instruction: TAKE 1 CAPSULE BY MOUTH TWICE DAILY(FOR BACK AND LEG PAIN, DO NOT MIX WITH OTHER NSAIDS) Rx Instructions: TAKE 1 CAPSULE BY MOUTH TWICE DAILY(FOR BACK AND LEG PAIN, DO NOT MIX WITH OTHER NSAIDS) ondansetron 4 mg tablet,disintegrating See Rx Instructions .ROUTE .COMPLEX Qty: 60 0RF Dose Instruction: DISSOLVE TWO TABLETS ON THE TONGUE TWICE A DAY NEEDED FOR FOR NAUSEA AND VOMITING Rx Instructions: DISSOLVE TWO TABLETS ON THE TONGUE TWICE A DAY NEEDED FOR FOR NAUSEA AND V OMITING clonidine HCl 0.2 mg tablet 0.2 mg PO HS Patient Comments: TAKE 1 TABLET BY MOUTH EVERY NIGHT AT BEDTIME Discharge Instructions Additional Instructions: Please call your primary care provider first thing in the morning to schedule a follow-up appointment to discuss today's emergency department visit Stay well-hydrated, drinking plenty of fluids throughout the day. Return to emergency care if you develop new severe headache that is unlike other headaches you have had before, vision changes, uncontrollable vomiting, or if you are very worried and need to be rechecked again immediately. Referrals: Lorena Mann NP [Primary Care Provider] - [facility] General Date/Time Provider Initiated Documentation: 11/21/23 09:02 . [facility] Narrative: Denise is a 43-year-old female with history of T2DM, asthma, gastroparesis, and migraine who presents to the emergency department today for evaluation of persistent migraine. She reports headache started 3 days ago, had gradual onset. It is a generalized frontal headache with photophobia and phonophobia with vomiting. She reports she vomited multiple times yesterday, no blood in emesis. She has taken Tylenol, Imitrex, Reglan, and Zofran with little improvement in symptoms. She feels like symptoms felt better after the first day, but then she fell on ice, hitting her left hand and knee and ice, no head strike. She says that this jolt made the headache come back worse. She denies associated fever/chills, vision changes, cough, chest pain, shortness of breath, abdominal pain, change in bowel or bladder function. She does have some mild neck discomfort that she says is typical for her migraines. She reports her blood sugars have been well-controlled. She has had to have IV medications in the past for migraine- says it is not unusual for her to have migraines lasting this long, says symptoms are typical for her migraines. Headache is not exacerbated by position change. Last dose of reglan was in the middle of the night. Related Data Home Medications Medication Instructions Recorded Confirmed hydroxyzine HCl 50 mg tablet 50 mg PO TID PRN 11/11/18 11/21/23 methadone 10 mg/mL oral concentrate 77 mg PO DAILY 02/12/19 11/21/23 atorvastatin 10 mg tablet 10 mg PO QHS #90 tabs 09/03/19 11/21/23 acetaminophen 500 mg tablet 500 - 1,000 mg (1 - 2 x 500 mg) PO 09/24/19 11/21/23 Q8H PRN fever or pain #180 tab-caps alcohol swabs (Alcohol Pads) 1 pad topical QID #400 ea 10/25/22 11/21/23 dextroamphetamine-amphetamine 30 30 mg PO BID 10/25/22 11/21/23 mg tablet (Adderall) nystatin 100,000 unit/gram topical 1 applic topical BID PRN fungal 01/24/23 11/21/23 powder skin infection #30 grams lorazepam 0.5 mg tablet 0.5 mg PO DAILY PRN 03/13/23 11/21/23 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 03/13/23 11/21/23 #90 tab-caps magnesium oxide 400 mg (241.3 mg 400 mg PO BID 04/18/23 11/21/23 magnesium) tablet albuterol sulfate 90 mcg/actuation 1 - 2 puff inhalation Q4-6H PRN ##1 06/20/23 11/21/23 aerosol inhaler (ProAir HFA) empagliflozin 25 mg tablet 25 mg PO DAILY AM #90 tab-caps 06/20/23 11/21/23 (Jardiance) pen needle, diabetic 32 gauge x #100 ea 06/30/23 11/21/2332 (BD Ultra-Fine Yamini Pen Needle) insulin degludec 100 unit/mL (3 146 unit subcut QHS Dx: E11.9 to 08/04/23 11/21/23 mL) subcutaneous pen (Tresiba maintain HbA1c less than 7% FlexTouch U-100 insulin) metoclopramide HCl 10 mg tablet 10 mg PO TID 08/04/23 11/21/23 omeprazole 20 mg capsule,delayed 40 mg PO DAILY 08/04/23 11/21/23 release glucagon 1 mg/0.2 mL subcutaneous 1 mg (0.2 mL) subcut ONCE #0.4 mL 08/05/23 11/21/23 auto-injector (Gvoke HypoPen 2-Pack) blood sugar diagnostic (Blood #400 ea 08/28/23 11/21/23 Glucose Test strips) blood-glucose meter #1 ea 08/28/23 11/21/23 lancets #400 ea 08/28/23 11/21/23 insulin aspart U-100 100 unit/mL 15 unit (0.15 mL) subcut AC #15 mL 09/09/23 11/21/23 (3 mL) subcutaneous pen (Novolog FlexPen U-100 Insulin aspart) guaifenesin 1,200 mg tablet, 1,200 mg PO Q12H PRN cold symptoms 09/18/23 11/21/23 extended release 12 hr (Mucinex) #30 tabs blood-glucose sensor (Dexcom G6 #3 ea 09/25/23 11/21/23 Sensor device) blood-glucose transmitter (Dexcom #3 ea 09/25/23 11/21/23 G6 Transmitter device) baclofen 10 mg tablet 10 mg PO BID PRN muscle spasm #40 10/02/23 11/21/23 tab-caps pregabalin 200 mg capsule 200 mg PO TID #270 tab-caps 10/08/23 11/21/23 lurasidone 40 mg tablet (Latuda) 120 mg PO DAILY 10/24/23 11/21/23 sumatriptan succinate 100 mg tablet 100 mg PO ONCE PRN migraine 10/29/23 11/21/23 headache #30 tab-caps celecoxib 200 mg capsule See Rx Instructions .Route 11/10/23 11/21/23 .COMPLEX #30 caps ondansetron 4 mg disintegrating See Rx Instructions .Route 11/17/23 11/21/23 tablet .COMPLEX #60 tabs clonidine HCl 0.2 mg tablet 0.2 mg PO HS 11/21/23 11/21/23 Previous Rx's Medication Instructions Recorded atorvastatin 10 mg tablet 10 mg PO QHS #90 tabs 09/03/19 acetaminophen 500 mg tablet 500 - 1,000 mg (1 - 2 x 500 mg) PO 09/24/19 Q8H PRN fever or pain #180 tab-caps alcohol swabs (Alcohol Pads) 1 pad topical QID #400 ea 10/25/22 nystatin 100,000 unit/gram topical 1 applic topical BID PRN fungal 01/24/23 powder skin infection #30 grams 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 03/13/23 #90 tab-caps albuterol sulfate 90 mcg/actuation 1 - 2 puff inhalation Q4-6H PRN ##1 06/20/23 aerosol inhaler (ProAir HFA) empagliflozin 25 mg tablet 25 mg PO DAILY AM #90 tab-caps 06/20/23 (Jardiance) pen needle, diabetic 32 gauge x #100 ea 06/30/23 (BD Ultra-Fine Yamini Pen Needle) glucagon 1 mg/0.2 mL subcutaneous 1 mg (0.2 mL) subcut ONCE #0.4 mL 08/05/23 auto-injector (Syncing.Neten 2-Pack) blood sugar diagnostic (Blood #400 ea 08/28/23 Glucose Test strips) blood-glucose meter #1 ea 08/28/23 lancets #400 ea 08/28/23 insulin aspart U-100 100 unit/mL 15 unit (0.15 mL) subcut AC #15 mL 09/09/23 (3 mL) subcutaneous pen (Novolog FlexPen U-100 Insulin aspart) guaifenesin 1,200 mg tablet, 1,200 mg PO Q12H PRN cold symptoms 09/18/23 extended release 12 hr (Mucinex) #30 tabs blood-glucose sensor (Dexcom G6 #3 ea 09/25/23 Sensor device) blood-glucose transmitter (Dexcom #3 ea 09/25/23 G6 Transmitter device) baclofen 10 mg tablet 10 mg PO BID PRN muscle spasm #40 10/02/23 tab-caps pregabalin 200 mg capsule 200 mg PO TID #270 tab-caps 10/08/23 sumatriptan succinate 100 mg tablet 100 mg PO ONCE PRN migraine 10/29/23 headache #30 tab-caps celecoxib 200 mg capsule See Rx Instructions .Route 11/10/23 .COMPLEX #30 caps ondansetron 4 mg disintegrating See Rx Instructions .Route 11/17/23 tablet .COMPLEX #60 tabs Allergies Allergy/AdvReac Type Severity Reaction Status Date / Time Penicillins Allergy Severe lip and Unverified 11/21/23 08:54 facial swelling lamotrigine [From Lamictal] Allergy Unknown Skin Rash Verified 11/21/23 08:54 clindamycin AdvReac Severe Nausea & Verified 11/21/23 08:54 vomiting aspirin AdvReac Intermediate nausea/pain Unverified 11/21/23 08:54 General Stated Complaint: Headache CARLOS: 3 Review of Systems Narrative: see HPI Exam Const General: cooperative and no acute distress HENMT Head: normal to inspection Ears: hearing grossly normal bilaterally General nose exam: external nose normal Mouth: oral mucosae normal Eyes General: appearance normal, both eyes and all related structures Pupils: PERRL Other: blind in R eye Neck Neck: normal visual inspection, full ROM and no meningeal signs Resp Effort & Inspection: normal respiratory effort and able to speak in complete sentences Auscultation: clear to auscultation bilaterally Cardio Rate: regular rate Rhythm: regular rhythm Neuro General: patient alert, patient awake, patient oriented x3, moves all extremities, normal light touch, pain and propioception, no meningeal signs, no focal motor deficits and CN's II-XI intact bilaterally Cranial Nerves: CN's II-XI intact bilaterally, PERRL and EOM intact bilaterally Speech: speech normal Gait: normal gait Sensory Exam: no sensory deficits noted Coordination: [id number] test normal, Romberg test normal, Does not sway with eyes open and rapid alternating movement UE normal Course Vital Signs Vital signs: Vital Signs Temperature 37.0 C 11/21/23 08:52 Pulse 90 11/21/23 08:52 Respiratory Rate 20 11/21/23 08:52 Blood Pressure 179/99 H 11/21/23 08:52 Pulse Oximetry 96 11/21/23 08:52 Temperature 37.3 C 11/21/23 09:05 Temperature Source Tympanic 11/21/23 09:05 Pulse 86 11/21/23 09:05 Respiratory Rate 17 11/21/23 09:05 Respiratory Effort Normal, Non-Labored 11/21/23 09:02 Blood Pressure 175/95 H 11/21/23 09:05 Blood Pressure Position Sitting 11/21/23 08:52 Pulse Oximetry 95 11/21/23 09:05 Oxygen Delivery Method Room Air 11/21/23 09:05 Oxygen Flow Rate 0 11/21/23 09:05 Pain Level 8 11/21/23 08:52 Medical Decision Making Denise is a 43-year-old female with history of T2DM, asthma, gastroparesis, and migraine who presents to the emergency department today for evaluation of persistent migraine. She reports headache started 3 days ago, had gradual onset. It is a generalized frontal headache with photophobia and phonophobia with vomiting. She reports she vomited multiple times yesterday, no blood in emesis. She has taken Tylenol, Imitrex, Reglan, and Zofran with little improvement in symptoms. She feels like symptoms felt better after the first day, but then she fell on ice, hitting her left hand and knee and ice, no head strike. She says that this jolt made the headache come back worse. She denies associated fever/chills, vision changes, cough, chest pain, shortness of breath, abdominal pain, change in bowel or bladder function. She does have some mild neck discomfort that she says is typical for her migraines. She reports her blood sugars have been well-controlled. She has had to have IV medications in the past for migraine- says it is not unusual for her to have migraines lasting this long, says symptoms are typical for her migraines. Headache is not exacerbated by position change. Last dose of reglan was in the middle of the night. Physical exam reassuring. Patient is alert and interactive, in no acute distress. PERRL, EOMs intact. Normal finger to finger, [id number], rapid alternating movements, Romberg, gait. 5 out of 5 muscle strength upper and lower extremities. Sensation intact to extremities. Cranial nerves II through XII intact as tested. Full painless range of motion of neck, no C-spine tenderness/step-off/deformity. Easy work of breathing, lung sounds clear bilaterally. Normal heart sounds. Ecchymosis noted along length of R 5th finger, sensation intact, full ROM. DDx includes but is not limited to migraine headache, dehydration, electrolyte imbalance; fracture, soft tissue injury, finger sprain No red flags on history or physical exam concerning for secondary etiology of headache requiring diagnostic imaging at this time. I independently interpreted the following tests: EKG reassuring, normal sinus rhythm rate 66. Normal QT and OK intervals. No ST/T wave changes consistent with acute ischemia. BMP reassuring. While in the emergency dept, Denise received IV fluids and toradol for pain control. Zofran given for nausea. Benadryl and Compazine given for persistent nausea after Zofran. I did consider giving dexamethasone, however pt does have history of bipolar disorder. Patient reports she feels like her headache has fully resolved after treatment. She was able to drink dre nader and crackers in the room, says she feels ready to go home. Advise follow-up with PCP for further evaluation/management of migraine headaches. Quality:[facility] Health Related Social Needs: No Data to Display PFSH All Active Problems (Updated 11/21/23 @ 11:36 by Lin Jha) Migraine (Chronic) Lumbar back pain (Acute) Muscle spasm of left lower extremity (Acute) Muscle spasm of back (Acute) Back pain (Acute) Diabetic cataract of right eye (Acute) Ulcer of right foot limited to breakdown of skin (Acute 04/16/23) [facility] Ulcer of left foot, limited to breakdown of skin (Acute 04/16/23) [facility] Iron deficiency (Acute) 03/2023 iron studies indicating deficiency (NOT anemic) Migraine (Chronic) [facility] Chronic constipation (Chronic) [facility] Opioid use disorder (Chronic) MAT with methadone Type 2 diabetes mellitus, with long-term current use of insulin (Chronic) With neuropathy & retinopathy (left, mild) Obesity (Chronic) Cirrhosis of liver (Chronic) Asthma (Chronic) Tobacco use disorder (Chronic) Started smoking age 9 Slow transit constipation (Chronic) 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 [facility] Dyspareunia in female (Chronic 07/09/17) Depressive disorder (Chronic 10/31/14) ADMISSION SUICIDAL THOUGHTS 06/13/14 OD ATTEMPTS IN PAST Chronic nausea (Chronic) EGD 04/16/16 Dr. Ferrer; multifactoral: gastroparesis, constipation, hyperglycemia, methadone Chronic fatigue (Chronic 07/19/15) Atrophic vaginitis (Chronic 07/09/17) Medical History Punctate keratitis of both eyes Ulcer of foot due to secondary diabetes Umbilical hernia (03/11/18) 03/17/2018: [facility] Premature surgical menopause JAD/BSO in late 20s, no HRT Hepatitis C 02/14/2016 labwork: undetectable RNA level Surgical History Status post total hysterectomy and bilateral salpingo-oophorectomy (~2006) noncancerous reasons Status post left foot surgery (10/2022) Left fourth metatarsal head excision for chronic ulcer, osteomyelitis ([facility]/Tamia Vidales, DPM) Status post section (~2003) EGD (04/16/16) Dr. Ferrer Family History Mother , 46yo due to kidney & liver failure due to alcohol Substance use disorder Alcohol use disorder Father , 62yo from ALS Substance use disorder Alcohol use disorder ALS (amyotrophic lateral sclerosis) Grandmother Colon cancer Paternal Paternal Uncle Cardiac arrest Substance use disorder Alcohol and Pain Medication Abuse Social History Smoking/Tobacco Use Status: Current every day Tobacco Type: cigarettes Smoking packs per day: 1 Smoking cigarettes per day: 20.0 Tobacco: How many years used: 33 Quit status: considering quitting Smoking risk assessment performed?: Yes Alcohol Intake: never Drug use: Occasionally Substance use type: marijuana Adopted: No Caregiver/Support person: No Foster care: Yes Household members: spouse Housing: house Number of Children: 2 number of grandchildren: 1 Communication Needs: None and Corrective Lenses Education Level: high school Details: 11th grade Do you need help understanding health information?: Never 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 Pets and animals: Yes (1 dog, 4 cats) Pets and animals: cat(s) and dog(s) Sexually active: Yes Do you think of yourself as: straight/heterosexual Current gender identity: female Other: 09/2022: pt reports she is engaged What is your relationship status?: How often do you talk on the phone with friends or family?: three or more times per week How often do you get together with friends or relatives?: once per week How often do you attend presybeterian or christian services?: decline to answer Do you belong to any clubs or organized social groups?: no Panel score (0-1 are the most socially isolated patients): 2 What type of physical activity do you participate in: none Duration: decline to answer Frequency: decline to answer Seatbelt use: always Helmet use: No (No reason to wear one) Drive intox or ride w/intox patient transportation 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
--- NOTE | 2023-11-21 09:15 | RT.EKG_ITS ---
APPROVED REPORT Exam: Resting ECG Reason for Exam: r/o QT prolongation Patient Location: E HR:66 bpm ECG Measurements Heart Rate 66 AXIS IA 176 P 32 QRSd 78 QRS 31 QT 414 T 61 QTc 435 Conclusion Sinus rhythm...normal P axis, V-rate 60- 99 Low voltage, extremity and precordial leads...extremity<0.5mV, precordial<1.0mV sinus rhtyhm, normal axis, normal intervals, non ischemic
[2023-11-21] MEDS: Normal Saline 1,000 ML 1000 ML IV (09:31)
[2023-11-21] MEDS: Ketorolac 15 MG/ML VIAL IVP (09:48)
[2023-11-21 10:04] LABS: Anion Gap 7.3 mmol/L (3-11); BUN 13 mg/dL (7-18); CO2 32.7 mmol/L (21.0-32.0); CREATININE 0.9 mg/dL (0.55-1.02); Calcium 9.9 mg/dL (8.5-10.1); Chloride 99 mmol/L (98-107); Estimated GFR 80.34 (mL/min/1.73m2); Glucose 203 mg/dL (74-106); Potassium 3.9 mmol/L (3.5-5.1); Sodium 139 mmol/L (136-145)
[2023-11-21] MEDS: Ondansetron 4 MG/2 ML VIAL IVP (10:04)
[2023-11-21] MEDS: Prochlorperazine 10 MG/2 ML VIAL IVP (10:34)
[2023-11-21] MEDS: diphenhydrAMINE 50 MG/ML VIAL 25 MG IVP (10:35)
[2023-11-21 10:44] VITALS: BP 150/72; PULSE 82; O2SAT 96
[2023-11-21 11:45] VITALS: BP 145/78; PULSE 68; RESP 22; TEMP 36.5; O2SAT 96
== END 2023-11-21 11:48 | disposition home or self-care (01) ==
PROVIDERS: Emergency Provider Nurse Practitioner Family; PCP Nurse Practitioner Adult Health
DX: G43.909 Migraine, unspecified, not intractable, without status migrainosus (principal); E11.40 Type 2 diabetes mellitus with diabetic neuropathy, unspecified; E11.319 Type 2 diabetes mellitus with unspecified diabetic retinopathy without macular edema; F17.210 Nicotine dependence, cigarettes, uncomplicated; Z79.4 Long term (current) use of insulin
CPT/HCPCS: 80048; 93005; 96361; 96374; 96375; 99284; 93010; J0780; J1200; J1885; J2405

== ENCOUNTER 2024-01-04 11:50 | Emergency (ER) | payer OTHER, SELFPAY ==
[2024-01-04 11:52] VITALS: BP 129/89; PULSE 79; RESP 16; TEMP 36.3; O2SAT 95
--- NOTE | 2024-01-04 11:57 | ED.GENADUL_ITS ---
Discharge Plan Disposition Patient Disposition: Home Condition: Stable Discharge Details Clinical Impression: Chronic lumbar radiculopathy Primary Care Provider: Lorena Mann ED Provider: John Buenrostro Home Meds and New Rx's Prescriptions: New cyclobenzaprine 10 mg tablet 10 mg PO TID PRNQty: 30 0RF lidocaine [Lidoderm] 5 % adhesive patch,medicated 1 patch topical DAILY Qty: 15 0RF Rx Instructions: leave on most painful area for up to 12 hrs diclofenac sodium 1 % gel 2 g topical QID Qty: 100 0RF Rx Instructions: apply to single elbow, wrist or hand; for hand includes palm/fingers/back of hand Continued methadone 10 mg/mL concentrate 77 mg PO DAILY Patient Comments: 77 mg lorazepam 0.5 mg tablet 0.5 mg PO DAILY PRN lurasidone [Latuda] 40 mg tablet 120 mg PO DAILY Patient Comments: per larissa per pt report, 10/24/23, ik - maybe too much? but HAS helped - Rx Instructions: must administer with food (at least 350 calories) valacyclovir 500 mg tablet 500 mg PO DAILY Qty: 90 3RF magnesium oxide 400 mg (241.3 mg magnesium) tablet 400 mg PO BID Jardiance 25 mg tablet 25 mg PO DAILY AM Qty: 90 3RF Rx Instructions: Administer once daily in the morning, with or without food albuterol sulfate [ProAir HFA] 90 mcg/actuation HFA aerosol inhaler 1 - 2 puff Inhalation Q4-6H PRN Qty: 1 1RF Rx Instructions: DISPENSE ALBUTEROL INHALER BRAND COVERED BY INSURANCE insulin degludec [Tresiba FlexTouch U-100] 100 unit/mL (3 mL) insulin pen 146 unit subcut QHS metoclopramide HCl 10 mg tablet 10 mg PO TID Rx Instructions: administer 30 minutes before meals dextroamphetamine-amphetamine [Adderall] 30 mg tablet 30 mg PO BID Rx Instructions: administer doses at least 4-6 hours apart alcohol swabs [Alcohol Pads] Pads, Medicated 1 pad Topical QID Qty: 400 3RF sumatriptan succinate 100 mg tablet 100 mg PO ONCE MDD 200 mg PRN (Reason: migraine headache) Qty: 30 2RF Rx Instructions: A second dose can be taken if no response after 2 hours hydroxyzine HCl 50 mg tablet 50 mg PO TID PRN Patient Comments: note dated 10/27/18 [facility] Trudy Ray cgc atorvastatin 10 mg tablet 10 mg PO QHS Qty: 90 0RF acetaminophen 500 mg tablet 500 - 1,000 mg PO Q8H MDD 3000 mg PRN (Reason: fever or pain) Qty: 180 0RF Rx Instructions: [place] [place] needle, diabetic [BD Ultra-Fine Yamini Pen Needle] 32 gauge x 5/32 needle See Rx Instructions .ROUTE .COMPLEX Qty: 100 0RF Dose Instruction: USE TO ADMINISTER INSULIN ONCE DAILY Rx Instructions: USE TO ADMINISTER INSULIN ONCE DAILY Gvoke HypoPen 2-Pack 1 mg/0.2 mL auto-injector 1 mg subcut ONCE Qty: 0.4 1RF Rx Instructions: HYPOGLYCEMIA; as a single dose; may repeat once after 15 minutes if no response (DME) blood-glucose meter Misc See Rx Instructions .Route Qty: 1 0RF Rx Instructions: [place] [place] lancets Misc See Rx Instructions .ROUTE .MEDSUPPLY Qty: 400 3RF Rx Instructions: As directed to check blood glucose four times daily. On insulin. Dispense one touch ultra (DME) Blood Glucose Test Strip See Rx Instructions .MEDSUPPLY Qty: 400 3RF Rx Instructions: As directed to check blood glucose four times daily. On insulin. Dispense one touch ultra insulin aspart U-100 [Novolog FlexPen U-100 Insulin] 100 unit/mL (3 mL) insulin pen 15 unit subcut AC Qty: 15 3RF Rx Instructions: 10-15 units sliding scale before meals (DME) Dexcom G6 Transmitter Device See Rx Instructions .Route Qty: 3 3RF Rx Instructions: As directed (DME) Dexcom G6 Sensor Device See Rx Instructions .Route Qty: 3 3RF Rx Instructions: As directed pregabalin 200 mg capsule 200 mg PO TID Qty: 270 0RF celecoxib 200 mg capsule See Rx Instructions .ROUTE .COMPLEX Qty: 30 6RF Dose Instruction: TAKE 1 CAPSULE BY MOUTH TWICE DAILY(FOR BACK AND LEG PAIN, DO NOT MIX WITH OTHER NSAIDS) Rx Instructions: TAKE 1 CAPSULE BY MOUTH TWICE DAILY(FOR BACK AND LEG PAIN, DO NOT MIX WITH OTHER NSAIDS) nystatin 100,000 unit/gram powder 1 applic Topical BID PRN (Reason: fungal skin infection) Qty: 30 3RF Rx Instructions: Apply powder to affected area under R breast twice daily omeprazole 40 mg capsule,delayed release(DR/EC) 40 mg PO DAILY Qty: 90 0RF ondansetron 4 mg tablet,disintegrating See Rx Instructions .ROUTE .COMPLEX Qty: 60 0RF Dose Instruction: DISSOLVE TWO TABLETS ON THE TONGUE TWICE A DAY NEEDED FOR FOR NAUSEA AND VOMITING Rx Instructions: DISSOLVE TWO TABLETS ON THE TONGUE TWICE A DAY NEEDED FOR FOR NAUSEA AND VOMITING clonidine HCl 0.2 mg tablet 0.2 mg PO HS Patient Comments: TAKE 1 TABLET BY MOUTH EVERY NIGHT AT BEDTIME Discharge Instructions Instructions: Cyclobenzaprine (By mouth), Diclofenac (On the skin), Lidocaine Patch (On the skin), Acute Low Back Pain (ED) Additional Instructions: You were seen in the emergency department for your acute on chronic low back pain, this is consistent with sciatica without spinal cord emergency. Please take 1000 mg of Tylenol 4 times per day, take an anti-inflammatory at therapeutic dosing regimen whether this is 2 Aleve in the morning and 2 in the evening versus 400 mg of ibuprofen 4 times per day. Apply the prescription topical diclofenac for some localized anti-inflammatory effect to the area of pain, apply a prescription lidocaine patch to the area of pain for 12 hours each day. Take the prescribed muscle relaxer 3 times per day as needed. Alternate heat and ice to the area, follow-up with physical therapy or massage therapy, +/- chiropractic therapy if desired. Please return to the emergency department for any urinary retention, incontinence of bowel, numbness in the groin, symmetric ascending paralysis of the legs. Referrals: [facility] [Provider Group] [facility] [Provider Group] Lorena Mann NP [Primary Care Provider] - Discharge Data Discharge Date/Time-TO BE ENTERED AT DEPARTURE: 01/04/24 12:28 HPI General Date/Time Provider Initiated Documentation: 01/04/24 11:51 . HPI Narrative: 43 year-old female presents to ED today by POV/ambulating with her spouse with a chief complaint of acute on chronc R lumbar back pain with radiculopathy, long history of sciatica with onset noted the past 3 days. Quality described as shooting pains and muscle knots in her R lower back, no radiation to groin numbness, inability to use her legs, urinary retention, bowel incontinence. Severity is described as severe. Palliating factors include took Motrin early this morning. Provoking factors include nothing specific. Events leading up to the incident/Associated Symptoms: Patient has not followed with physical therapy yet. Patient not anticoagulated. Related Data Home Medications Medication Instructions Recorded Confirmed hydroxyzine HCl 50 mg tablet 50 mg PO TID PRN 11/11/18 01/04/24 methadone 10 mg/mL oral concentrate 77 mg PO DAILY 02/12/19 01/04/24 atorvastatin 10 mg tablet 10 mg PO QHS #90 tabs 09/03/19 01/04/24 acetaminophen 500 mg tablet 500 - 1,000 mg (1 - 2 x 500 mg) PO 09/24/19 01/04/24 Q8H PRN fever or pain #180 tab-caps alcohol swabs (Alcohol Pads) 1 pad topical QID #400 ea 10/25/22 11/21/23 dextroamphetamine-amphetamine 30 30 mg PO BID 10/25/22 01/04/24 mg tablet (Adderall) lorazepam 0.5 mg tablet 0.5 mg PO DAILY PRN 03/13/23 01/04/24 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 03/13/23 01/04/24 #90 tab-caps magnesium oxide 400 mg (241.3 mg 400 mg PO BID 04/18/23 01/04/24 magnesium) tablet albuterol sulfate 90 mcg/actuation 1 - 2 puff inhalation Q4-6H PRN ##1 06/20/23 01/04/24 aerosol inhaler (ProAir HFA) empagliflozin 25 mg tablet 25 mg PO DAILY AM #90 tab-caps 06/20/23 01/04/24 (Jardiance) pen needle, diabetic 32 gauge x #100 ea 06/30/23 11/21/2332 (BD Ultra-Fine Yamini Pen Needle) insulin degludec 100 unit/mL (3 146 unit subcut QHS Dx: E11.9 to 08/04/23 01/04/24 mL) subcutaneous pen (Tresiba maintain HbA1c less than 7% FlexTouch U-100 insulin) metoclopramide HCl 10 mg tablet 10 mg PO TID 08/04/23 01/04/24 glucagon 1 mg/0.2 mL subcutaneous 1 mg (0.2 mL) subcut ONCE #0.4 mL 08/05/23 01/04/24 auto-injector ([employer] HypoPen 2-Pack) blood sugar diagnostic (Blood #400 ea 08/28/23 11/21/23 Glucose Test strips) blood-glucose meter #1 ea 08/28/23 11/21/23 lancets #400 ea 08/28/23 11/21/23 insulin aspart U-100 100 unit/mL 15 unit (0.15 mL) subcut AC #15 mL 09/09/23 01/04/24 (3 mL) subcutaneous pen (Novolog FlexPen U-100 Insulin aspart) blood-glucose sensor (Dexcom G6 #3 ea 09/25/23 11/21/23 Sensor device) blood-glucose transmitter (Dexcom #3 ea 09/25/23 11/21/23 G6 Transmitter device) pregabalin 200 mg capsule 200 mg PO TID #270 tab-caps 10/08/23 11/21/23 lurasidone 40 mg tablet (Latuda) 120 mg PO DAILY 10/24/23 01/04/24 sumatriptan succinate 100 mg tablet 100 mg PO ONCE PRN migraine 10/29/23 01/04/24 headache #30 tab-caps clonidine HCl 0.2 mg tablet 0.2 mg PO HS 11/21/23 01/04/24 celecoxib 200 mg capsule See Rx Instructions .Route 11/24/23 01/04/24 .COMPLEX #30 caps nystatin 100,000 unit/gram topical 1 applic topical BID PRN fungal 12/04/23 01/04/24 powder skin infection #30 grams omeprazole 40 mg capsule,delayed 40 mg PO DAILY #90 caps 12/15/23 01/04/24 release ondansetron 4 mg disintegrating See Rx Instructions .Route 12/15/23 01/04/24 tablet .COMPLEX #60 tabs cyclobenzaprine 10 mg tablet 10 mg PO TID PRN #30 tabs 01/04/24 diclofenac sodium 1 % topical gel 2 g topical QID #100 grams 01/04/24 lidocaine 5 % topical patch 1 patch topical DAILY #15 ea 01/04/24 (Lidoderm) Previous Rx's Medication Instructions Recorded atorvastatin 10 mg tablet 10 mg PO QHS #90 tabs 09/03/19 acetaminophen 500 mg tablet 500 - 1,000 mg (1 - 2 x 500 mg) PO 09/24/19 Q8H PRN fever or pain #180 tab-caps alcohol swabs (Alcohol Pads) 1 pad topical QID #400 ea 10/25/22 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 03/13/23 #90 tab-caps albuterol sulfate 90 mcg/actuation 1 - 2 puff inhalation Q4-6H PRN ##1 06/20/23 aerosol inhaler (ProAir HFA) empagliflozin 25 mg tablet 25 mg PO DAILY AM #90 tab-caps 06/20/23 (Jardiance) pen needle, diabetic 32 gauge x #100 ea 06/30/23 (BD Ultra-Fine Yamini Pen Needle) glucagon 1 mg/0.2 mL subcutaneous 1 mg (0.2 mL) subcut ONCE #0.4 mL 08/05/23 auto-injector ([employer] HypoPen 2-Pack) blood sugar diagnostic (Blood #400 ea 08/28/23 Glucose Test strips) blood-glucose meter #1 ea 08/28/23 lancets #400 ea 08/28/23 insulin aspart U-100 100 unit/mL 15 unit (0.15 mL) subcut AC #15 mL 09/09/23 (3 mL) subcutaneous pen (Novolog FlexPen U-100 Insulin aspart) blood-glucose sensor (Dexcom G6 #3 ea 09/25/23 Sensor device) blood-glucose transmitter (Dexcom #3 ea 09/25/23 G6 Transmitter device) pregabalin 200 mg capsule 200 mg PO TID #270 tab-caps 10/08/23 sumatriptan succinate 100 mg tablet 100 mg PO ONCE PRN migraine 10/29/23 headache #30 tab-caps celecoxib 200 mg capsule See Rx Instructions .Route 11/24/23 .COMPLEX #30 caps nystatin 100,000 unit/gram topical 1 applic topical BID PRN fungal 12/04/23 powder skin infection #30 grams omeprazole 40 mg capsule,delayed 40 mg PO DAILY #90 caps 12/15/23 release ondansetron 4 mg disintegrating See Rx Instructions .Route 12/15/23 tablet .COMPLEX #60 tabs cyclobenzaprine 10 mg tablet 10 mg PO TID PRN #30 tabs 01/04/24 diclofenac sodium 1 % topical gel 2 g topical QID #100 grams 04/14/24 lidocaine 5 % topical patch 1 patch topical DAILY #15 ea 01/04/24 (Lidoderm) Allergies Allergy/AdvReac Type Severity Reaction Status Date / Time Penicillins Allergy Severe lip and Verified 01/04/24 11:57 facial swelling lamotrigine [From Lamictal] Allergy Unknown Skin Rash Verified 01/04/24 11:57 clindamycin AdvReac Severe Nausea & Verified 01/04/24 11:57 vomiting aspirin AdvReac Intermediate nausea/pain Verified 01/04/24 11:57 General Stated Complaint: Nk/Back Pain CARLOS: 4 Review of Systems All systems reviewed & are unremarkable except as noted in HPI and below Exam Narrative Exam Narrative: GENERAL APPEARANCE: Well-nourished, non-toxic, awake and alert, atraumatic, no acute distress. SKIN: Warm, pink, dry, intact, without rashes/lesions/ulcerations. HEAD: Normocephalic, atraumatic, normal hair distribution for gender/age. EYES: Pupils PERRLA, EOMs intact without nystagmus, normal conjunctiva, no exudates on lids/lashes. ENT: Nares patent, no circumoral cyanosis, no facial swelling NECK: Supple, trachea midline, painless cervical ROM. LUNGS/CHEST: Non-labored respirations, normal A/P diameter, symmetrical expansion, no chest wall deformity HEART (CV/PV): No peripheral edema, no JVD. ABDOMEN: Soft, non-distended, no guarding. MSK: Normal ROM, no swelling/deformity to bilateral UEs or LEs, moving all extremities without weakness, no cyanosis, spine midline without tenderness, normal curvature, diffuse lumbar tenderness worse on the right paraspinal region, palpable muscle tension, no saddle anesthesia, using bilateral lower extremities without any deficits of range of motion or strength, ambulating normally NEURO: Mental Status AAOx4 - alert to person, place, time, events No facial droop, no forehead involvement. Motor: No focal weakness - strength 5/5 in bilateral UEs and LEs, proximal and distal, symmetric. Sensory: sensation intact to light touch globally. Gait normal: patient ambulated without ataxia into ED room. PSYCH: euthymic, cooperative, pleasant, appropriate speech Course Vital Signs Vital signs: Vital Signs Temperature 36.3 C L 01/04/24 11:52 Pulse 79 01/04/24 11:52 Respiratory Rate 16 01/04/24 11:52 Blood Pressure 129/89 01/04/24 11:52 Pulse Oximetry 95 01/04/24 11:52 Temperature 36.3 C L 01/04/24 11:52 Temperature Source Temporal Artery Scan 01/04/24 11:52 Pulse 79 01/04/24 11:52 Respiratory Rate 16 01/04/24 11:52 Blood Pressure 129/89 01/04/24 11:52 Pulse Oximetry 95 01/04/24 11:52 Medical Decision Making This dictation utilizes [id number] dictation software and may contain unedited grammatical errors. 43 y/o F presents to ED today with a chief complaint of acute on chronic R lumbar radiculopathy. Patient denies urinary/bowel changes, feels similar to prior episodes of sciatica, usually gets a Toradol shot and Valium for muscle relaxation with relief. Has not followed by PT visits yet. Patients' medical history: History of hepatitis C, history of muscle spasms, history of of migraine and chronic constipation and opioid use disorder with type 2 diabetes mellitus and history, asthma, tobacco use. Family and social history: noncontributory. Pertinent exam findings / vital signs include MSK: Normal ROM, no swelling/deformity to bilateral UEs or LEs, moving all extremities without weakness, no cyanosis, spine midline without tenderness, normal curvature, diffuse lumbar tenderness worse on the right paraspinal region, palpable muscle tension, no saddle anesthesia, using bilateral lower extremities without any deficits of range of motion or strength, ambulating normally. Differential / pathologies of concern include lumbar radiculopathy, unlikely cauda equina, no new trauma. Diagnostic studies of: -None. Interventions of: -Acetaminophen, Lidoderm patch, Toradol IM, p.o. Valium. Outpatient prescription for cyclobenzaprine, Lidoderm patch, topical diclofenac. ED Course/Assessment/Plan: 43-year-old obese female presents with acute on chronic right-sided lumbar radiculopathy, this is similar to prior episodes, has no bowel or urinary symptoms and no concerns for cauda equina at this time. Counseled the patient on following up with PT and returning for any severe increase in back pain especially with fever or urinary retention or bowel incontinence. Findings not consistent with cauda equina, spinal epidural abscess, neurovascular compromise of lower extremities. Disposition of Chronic Lumbar Radiculopathy. Patient verbalized understanding of the plan and return to ED criteria and engaged in shared decision making. Medical Records Medical records reviewed: Yes I reviewed the patient's medical records. Quality:[facility] Health Related Social Needs: No Data to Display [facility] All Active Problems (Updated 01/04/24 @ 12:07 by ALTA Waggoner) Chronic lumbar radiculopathy (Acute) Obstructive sleep apnea of adult (Acute) [facility] 12/23/23 Muscle spasm of left lower extremity (Acute) Muscle spasm of back (Acute) Diabetic cataract of right eye (Acute) Ulcer of right foot limited to breakdown of skin (Acute 04/16/23) [facility] Ulcer of left foot, limited to breakdown of skin (Acute 04/16/23) [facility] Iron deficiency (Acute) 03/2023 iron studies indicating deficiency (NOT anemic) Migraine (Chronic) [facility] Chronic constipation (Chronic) [facility] Opioid use disorder (Chronic) MAT with methadone Type 2 diabetes mellitus, with long-term current use of insulin (Chronic) With neuropathy & retinopathy (left, mild) Obesity (Chronic) Cirrhosis of liver (Chronic) Asthma (Chronic) Tobacco use disorder (Chronic) Started smoking age 9 Slow transit constipation (Chronic) [facility] 03/17/18 Poorly controlled type 2 diabetes mellitus (Chronic 03/23/18) Polypharmacy (Chronic 12/14/15) Mild nonproliferative diabetic retinopathy associated with type 2 diabetes mellitus (Chronic 01/22/16) Mental health disorder (Chronic) Pt reports being diagnosed with bipolar disorder, disassociative disorder, anxiety, & multiple personality disorder Hypomagnesemia (Chronic 09/30/16) Hyperlipidemia (Chronic 09/30/16) 10-year ASCVD risk = unable to calculate due to not being age 40+ however dx T2DM, so Rx for statin 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 Jimenez [facility] Dyspareunia in female (Chronic 07/09/17) Depressive disorder (Chronic 10/31/14) ADMISSION SUICIDAL THOUGHTS 06/13/14 OD ATTEMPTS IN PAST Chronic nausea (Chronic) EGD 04/16/16 Dr. Ferrer; multifactoral: gastroparesis, constipation, hyperglycemia, methadone Chronic fatigue (Chronic 07/19/15) Atrophic vaginitis (Chronic 07/09/17) Medical History Punctate keratitis of both eyes Ulcer of foot due to secondary diabetes Umbilical hernia (03/11/18) 03/17/2018: [facility] Premature surgical menopause JAD/BSO in late 20s, no HRT Hepatitis C 02/14/2016 labwork: undetectable RNA level Surgical History Status post total hysterectomy and bilateral salpingo-oophorectomy (~2006) noncancerous reasons Status post left foot surgery (10/2022) Left fourth metatarsal head excision for chronic ulcer, osteomyelitis ([facility]/Tamia Vidales, DPM) Status post section (~2003) EGD (04/16/16) Dr. Ferrer Family History Mother , 46yo due to kidney & liver failure due to alcohol Substance use disorder Alcohol use disorder Father , 62yo from ALS Substance use disorder Alcohol use disorder ALS (amyotrophic lateral sclerosis) Grandmother Colon cancer Paternal Paternal Uncle Cardiac arrest Substance use disorder Alcohol and Pain Medication Abuse Social History Smoking/Tobacco Use Status: Current every day Tobacco Type: cigarettes Smoking packs per day: 1 Smoking cigarettes per day: 20.0 Tobacco: How many years used: 33 Quit status: considering quitting Smoking risk assessment performed?: Yes Alcohol Intake: never Drug use: Occasionally Substance use type: marijuana Adopted: No Caregiver/Support person: No Foster care: Yes Household members: spouse Housing: house Number of Children: 2 number of grandchildren: 1 Communication Needs: None and Corrective Lenses Education Level: high school Details: 11th grade Do you need help understanding health information?: Never 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 Pets and animals: Yes (1 dog, 4 cats) Pets and animals: cat(s) and dog(s) Sexually active: Yes Do you think of yourself as: straight/heterosexual Current gender identity: female Other: 09/2022: pt reports she is engaged What is your relationship status?: How often do you talk on the phone with friends or family?: three or more times per week How often do you get together with friends or relatives?: once per week How often do you attend synagogue or protestant services?: decline to answer Do you belong to any clubs or organized social groups?: no Panel score (0-1 are the most socially isolated patients): 2 What type of physical activity do you participate in: none Duration: decline to answer Frequency: decline to answer Seatbelt use: always Helmet use: No (No reason to wear one) Drive intox or ride w/intox waste collection 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
[2024-01-04] MEDS: Lidocaine 5% Patch 1 PATCH TP (12:27)
[2024-01-04] MEDS: Ketorolac 30 MG/ML VIAL IM (12:27)
[2024-01-04] MEDS: Acetaminophen 500 MG TAB 1000 MG PO (12:27)
[2024-01-04] MEDS: diazePAM 5 MG TAB PO (12:27)
== END 2024-01-04 12:28 | disposition home or self-care (01) ==
PROVIDERS: Emergency Provider Physician Assistant; PCP Nurse Practitioner Adult Health
DX: M54.16 Radiculopathy, lumbar region; G89.29 Other chronic pain; M54.41 Lumbago with sciatica, right side; B19.20 Unspecified viral hepatitis C without hepatic coma; E11.9 Type 2 diabetes mellitus without complications; Z79.4 Long term (current) use of insulin; Z79.899 Other long term (current) drug therapy
CPT/HCPCS: 96372; 99284; J1885

== ENCOUNTER 2024-01-09 08:08 | Day surgery (SDC) | payer OTHER, SELFPAY ==
--- NOTE | 2024-01-09 08:13 | W.PREOPHP ---
Assessment and Plan Assessment and plan (1) Cortical age-related cataract, left eye: Status: Acute Assessment and plan: Assessment: Visually significant cataract of the left eye. Plan: Cataract extraction with lens implantation of the left eye. History of Present Illness History of Present Illness Chief Complaint: Progressive decreased vision, left eye Narrative: The patient is a 43-year-old lady with history of diminished visual acuity in her right eye, more so than left. She notes progressive decreased vision over several years, and is unable to drive due to the poor vision. She was noted to have a mature hand motions cataract in the right eye, as well as a significant cortical cataract of the left eye with visual acuity of 20/60 in the left eye. She has undergone cataract surgery in the right eye to remove the room mature white cataract and is doing well postoperatively. She now presents for cataract surgery in the left eye. Review of Systems All systems reviewed & are unremarkable except as noted in HPI and below PFSH All Active Problems Cortical age-related cataract, left eye (Acute) Chronic lumbar radiculopathy (Acute) Obstructive sleep apnea of adult (Acute) [facility] 12/23/23 Muscle spasm of left lower extremity (Acute) Muscle spasm of back (Acute) Diabetic cataract of right eye (Acute) Ulcer of right foot limited to breakdown of skin (Acute 04/16/23) [facility] Ulcer of left foot, limited to breakdown of skin (Acute 04/16/23) [facility] Iron deficiency (Acute) 03/2023 iron studies indicating deficiency (NOT anemic) Migraine (Chronic) [facility] Chronic constipation (Chronic) [facility] Opioid use disorder (Chronic) MAT with methadone Type 2 diabetes mellitus, with long-term current use of insulin (Chronic) With neuropathy & retinopathy (left, mild) Obesity (Chronic) Cirrhosis of liver (Chronic) Asthma (Chronic) Tobacco use disorder (Chronic) Started smoking age 9 Slow transit constipation (Chronic) [facility] 03/17/18 Poorly controlled type 2 diabetes mellitus (Chronic 03/23/18) Polypharmacy (Chronic 12/14/15) Mild nonproliferative diabetic retinopathy associated with type 2 diabetes mellitus (Chronic 01/22/16) Mental health disorder (Chronic) Pt reports being diagnosed with bipolar disorder, disassociative disorder, anxiety, & multiple personality disorder Hypomagnesemia (Chronic 09/30/16) Hyperlipidemia (Chronic 09/30/16) 10-year ASCVD risk = unable to calculate due to not being age 40+ however dx T2DM, so Rx for statin 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 Jimenez [facility] Dyspareunia in female (Chronic 07/09/17) Depressive disorder (Chronic 10/31/14) ADMISSION SUICIDAL THOUGHTS 06/13/14 OD ATTEMPTS IN PAST Chronic nausea (Chronic) EGD 04/16/16 Dr. Ferrer; multifactoral: gastroparesis, constipation, hyperglycemia, methadone Chronic fatigue (Chronic 07/19/15) Atrophic vaginitis (Chronic 07/09/17) Medical History Punctate keratitis of both eyes Ulcer of foot due to secondary diabetes Umbilical hernia (03/11/18) 03/17/2018: [facility] Premature surgical menopause JAD/BSO in late 20s, no HRT Hepatitis C 02/14/2016 labwork: undetectable RNA level Surgical History Status post total hysterectomy and bilateral salpingo-oophorectomy (~2006) noncancerous reasons Status post left foot surgery (10/2022) Left fourth metatarsal head excision for chronic ulcer, osteomyelitis ([facility]/Tamia Vidales, [facility]) Status post section (~2003) EGD (04/16/16) Dr. Ferrer Family History Mother , 46yo due to kidney & liver failure due to alcohol Substance use disorder Alcohol use disorder Father , 62yo from ALS Substance use disorder Alcohol use disorder ALS (amyotrophic lateral sclerosis) Grandmother Colon cancer Paternal Paternal Uncle Cardiac arrest Substance use disorder Alcohol and Pain Medication Abuse Social History Smoking/Tobacco Use Status: Current every day Tobacco Type: cigarettes Smoking packs per day: 1 Smoking cigarettes per day: 20.0 Tobacco: How many years used: 33 Quit status: considering quitting Smoking risk assessment performed?: Yes Alcohol Intake: never Drug use: Occasionally Substance use type: former substance user and marijuana Details: Pt. 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 Pets and animals: Yes (1 dog, 4 cats) Pets and animals: cat(s) and dog(s) Sexually active: Yes Do you think of yourself as: straight/heterosexual Current gender identity: female Other: 09/2022: pt reports she is engaged What is your relationship status?: How often do you talk on the phone with friends or family?: three or more times per week How often do you get together with friends or relatives?: once per week How often do you attend episcopalian or gnosticism services?: decline to answer Do you belong to any clubs or organized social groups?: no Panel score (0-1 are the most socially isolated patients): 2 What type of physical activity do you participate in: none Duration: decline to answer Frequency: decline to answer Seatbelt use: always Helmet use: No (No reason to wear one) 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 Meds Allergies and Home Medications Allergies Allergy/AdvReac Type Severity Reaction Status Date / Time Penicillins Allergy Severe lip and Verified 01/09/24 08:41 facial swelling lamotrigine [From Lamictal] Allergy Unknown Skin Rash Verified 01/09/24 08:41 clindamycin AdvReac Severe Nausea & Verified 01/09/24 08:41 vomiting aspirin AdvReac Intermediate nausea/pain Verified 01/09/24 08:41 Home Medications Medication Instructions Recorded Confirmed Type hydroxyzine HCl 50 mg tablet 50 mg PO TID PRN 11/11/18 01/09/24 History methadone 10 mg/mL oral concentrate 77 mg PO DAILY 02/12/19 01/09/24 History atorvastatin 10 mg tablet 10 mg PO QHS #90 tabs 09/03/19 01/09/24 Rx acetaminophen 500 mg tablet 500 - 1,000 mg (1 - 2 x 500 mg) PO 09/24/19 01/09/24 Rx Q8H PRN fever or pain #180 tab-caps alcohol swabs (Alcohol Pads) 1 pad topical QID #400 ea 10/25/22 01/09/24 Rx dextroamphetamine-amphetamine 30 30 mg PO BID 10/25/22 01/09/24 History mg tablet (Adderall) lorazepam 0.5 mg tablet 0.5 mg PO DAILY PRN 03/13/23 01/09/24 History 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 03/13/23 01/09/24 Rx #90 tab-caps magnesium oxide 400 mg (241.3 mg 400 mg PO BID 04/18/23 01/09/24 History magnesium) tablet albuterol sulfate 90 mcg/actuation 1 - 2 puff inhalation Q4-6H PRN ##1 06/20/23 01/09/24 Rx aerosol inhaler (ProAir HFA) empagliflozin 25 mg tablet 25 mg PO DAILY AM #90 tab-caps 06/20/23 01/09/24 Rx (Jardiance) pen needle, diabetic 32 gauge x #100 ea 06/30/23 11/21/23 Rx 5/32 (BD Ultra-Fine Yaimni Pen Needle) insulin degludec 100 unit/mL (3 146 unit subcut QHS Dx: E11.9 to 08/04/23 01/09/24 History mL) subcutaneous pen (Tresiba maintain HbA1c less than 7% FlexTouch U-100 insulin) metoclopramide HCl 10 mg tablet 10 mg PO TID 08/04/23 01/09/24 History glucagon 1 mg/0.2 mL subcutaneous 1 mg (0.2 mL) subcut ONCE #0.4 mL 08/05/23 01/09/24 Rx auto-injector (Gvoke HypoPen 2-Pack) blood sugar diagnostic (Blood #400 ea 08/28/23 11/21/23 Rx Glucose Test strips) blood-glucose meter #1 ea 08/28/23 11/21/23 Rx lancets #400 ea 08/28/23 11/21/23 Rx blood-glucose sensor (Dexcom G6 #3 ea 09/25/23 11/21/23 Rx Sensor device) blood-glucose transmitter (Dexcom #3 ea 09/25/23 11/21/23 Rx G6 Transmitter device) pregabalin 200 mg capsule 200 mg PO TID #270 tab-caps 10/08/23 01/09/24 Rx lurasidone 40 mg tablet (Latuda) 120 mg PO DAILY 10/24/23 01/09/24 History sumatriptan succinate 100 mg tablet 100 mg PO ONCE PRN migraine 10/29/23 01/09/24 Rx headache #30 tab-caps clonidine HCl 0.2 mg tablet 0.2 mg PO HS 11/21/23 01/09/24 History celecoxib 200 mg capsule See Rx Instructions .Route 11/24/23 01/09/24 Rx .COMPLEX #30 caps nystatin 100,000 unit/gram topical 1 applic topical BID PRN fungal 12/04/23 01/09/24 Rx powder skin infection #30 grams omeprazole 40 mg capsule,delayed 40 mg PO DAILY #90 caps 12/15/23 01/09/24 Rx release ondansetron 4 mg disintegrating See Rx Instructions .Route 12/15/23 01/09/24 Rx tablet .COMPLEX #60 tabs diclofenac sodium 1 % topical gel 2 g topical QID #100 grams 01/04/24 01/09/24 Rx lidocaine 5 % topical patch 1 patch topical DAILY #15 ea 01/04/24 01/09/24 Rx (Lidoderm) insulin aspart U-100 100 unit/mL 15 unit (0.15 mL) subcut AC #15 mL 01/05/24 01/09/24 Rx (3 mL) subcutaneous pen (Novolog FlexPen U-100 Insulin aspart) Exam Eyes Other: Ocular examination is significant for uncorrected vision of hand motions right eye, 20/60 left eye. A right exotropia is present. Intraocular pressure is 18 OD, 19 OS. Slit-lamp examination reveals a well-positioned PCIOL in the right eye with clear posterior capsule. Pupils dilate to 5.5 mm. In the left eye there is a 3+ anterior cortical opacity. No view of the posterior segment of the right eye was visible through the mature cataract. In the left eye disc cupping is noted to be 0.3 with normal vessels, macula, and peripheral retina. There are a moderate number of vitreous floaters in the left eye. Resp Auscultation: clear to auscultation bilaterally Cardio Rate: regular rate Rhythm: regular rhythm
[2024-01-09 08:26] VITALS: BP 118/81; PULSE 85; RESP 16; TEMP 36.4; O2SAT 97
--- NOTE | 2024-01-09 08:45 | W.ANESPRE ---
General Info Date of Service Date Performed: 01/09/24 Height: 5 ft 4 in Weight: 108.6 kg Body Mass Index (BMI): 41.1 Surgical Procedure: Operation Date: 01/09/24 10:40 Proposed Procedure Side Surgeon p Cataract Extraction with IOL Implant Left Joao Dougherty MD Meds Allergies and Home Medications Allergies Allergy/AdvReac Type Severity Reaction Status Date / Time Penicillins Allergy Severe lip and Verified 01/09/24 08:41 facial swelling lamotrigine [From Lamictal] Allergy Unknown Skin Rash Verified 01/09/24 08:41 clindamycin AdvReac Severe Nausea & Verified 01/09/24 08:41 vomiting aspirin AdvReac Intermediate nausea/pain Verified 01/09/24 08:41 Home Medication Medication Instructions Recorded hydroxyzine HCl 50 mg tablet 50 mg PO TID PRN 11/11/18 methadone 10 mg/mL oral concentrate 77 mg PO DAILY 02/12/19 atorvastatin 10 mg tablet 10 mg PO QHS #90 tabs 09/03/19 acetaminophen 500 mg tablet 500 - 1,000 mg (1 - 2 x 500 mg) PO 09/24/19 Q8H PRN fever or pain #180 tab-caps alcohol swabs (Alcohol Pads) 1 pad topical QID #400 ea 10/25/22 dextroamphetamine-amphetamine 30 30 mg PO BID 10/25/22 mg tablet (Adderall) lorazepam 0.5 mg tablet 0.5 mg PO DAILY PRN 03/13/23 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 03/13/23 #90 tab-caps magnesium oxide 400 mg (241.3 mg 400 mg PO BID 04/18/23 magnesium) tablet albuterol sulfate 90 mcg/actuation 1 - 2 puff inhalation Q4-6H PRN ##1 06/20/23 aerosol inhaler (ProAir HFA) empagliflozin 25 mg tablet 25 mg PO DAILY AM #90 tab-caps 06/20/23 (Jardiance) pen needle, diabetic 32 gauge x #100 ea 06/30/23 (BD Ultra-Fine Yamini Pen Needle) insulin degludec 100 unit/mL (3 146 unit subcut QHS Dx: E11.9 to 08/04/23 mL) subcutaneous pen (Tresiba maintain HbA1c less than 7% FlexTouch U-100 insulin) metoclopramide HCl 10 mg tablet 10 mg PO TID 08/04/23 glucagon 1 mg/0.2 mL subcutaneous 1 mg (0.2 mL) subcut ONCE #0.4 mL 08/05/23 auto-injector (Gvoke HypoPen 2-Pack) blood sugar diagnostic (Blood #400 ea 08/28/23 Glucose Test strips) blood-glucose meter #1 ea 08/28/23 lancets #400 ea 08/28/23 blood-glucose sensor (Dexcom G6 #3 ea 09/25/23 Sensor device) blood-glucose transmitter (Dexcom #3 ea 09/25/23 G6 Transmitter device) pregabalin 200 mg capsule 200 mg PO TID #270 tab-caps 10/08/23 lurasidone 40 mg tablet (Latuda) 120 mg PO DAILY 10/24/23 sumatriptan succinate 100 mg tablet 100 mg PO ONCE PRN migraine 10/29/23 headache #30 tab-caps clonidine HCl 0.2 mg tablet 0.2 mg PO HS 11/21/23 celecoxib 200 mg capsule See Rx Instructions .Route 11/24/23 .COMPLEX #30 caps nystatin 100,000 unit/gram topical 1 applic topical BID PRN fungal 12/04/23 powder skin infection #30 grams omeprazole 40 mg capsule,delayed 40 mg PO DAILY #90 caps 12/15/23 release ondansetron 4 mg disintegrating See Rx Instructions .Route 12/15/23 tablet .COMPLEX #60 tabs diclofenac sodium 1 % topical gel 2 g topical QID #100 grams 01/04/24 lidocaine 5 % topical patch 1 patch topical DAILY #15 ea 01/04/24 (Lidoderm) insulin aspart U-100 100 unit/mL 15 unit (0.15 mL) subcut AC #15 mL 01/05/24 (3 mL) subcutaneous pen (Novolog FlexPen U-100 Insulin aspart) Current Visit Medications: Current Medications Generic Name Dose Route Start Last Admin Trade Name Freq PRN Reason Stop Dose Admin Acetaminophen 1,000 mg 01/09/24 06:00 Acetaminophen 500 Mg Tab PO 02/08/24 05:59 Q4H PRN PRN Balanced Salt Solution 500 ml 01/09/24 06:00 Balanced Salt Soln.-Plus 500 Ml Bag OP 02/08/24 05:59 DIRECTED JR Miscellaneous Medication 0 ml 01/09/24 06:00 Prednisolone 1%, Moxifloxacin 0.5%, Bromfenac 0.09% 5ml Btl OS 02/08/24 05:59 DIRECTED JR Miscellaneous Medication 0 ml 01/09/24 06:00 01/09/24 08:40 Tropicam./Phenyleph. (1/2.5%) 10 Ml Btl OS 02/08/24 05:59 1 drp DIRECTED JR Administration Tetracaine HCl 0 ml 01/09/24 06:00 Tetracaine 0.5% 4 Ml Btl OS 02/08/24 05:59 DIRECTED JR PFSH Active Problems Active Problems: Problem Status Onset Code Cortical age-related cataract, left eye H25.012 Chronic lumbar radiculopathy M54.16 Obstructive sleep apnea of adult G47.33 Muscle spasm of left lower extremity M62.838 Muscle spasm of back M62.830 Diabetic cataract of right eye E11.36 Ulcer of right foot limited to breakdown of skin 04/16/23 L97.511 Ulcer of left foot, limited to breakdown of skin 04/16/23 L97.521 Iron deficiency E61.1 Migraine G43.909 Chronic constipation K59.09 Opioid use disorder F11.90 Type 2 diabetes mellitus, with long-term current use of insulin E11.9, Z79.4 Obesity E66.9 Cirrhosis of liver K74.60 Asthma J45.909 Tobacco use disorder F17.200 Slow transit constipation K59.01 Poorly controlled type 2 diabetes mellitus 03/23/18 E11.65 Polypharmacy 12/14/15 Z79.899 Mild nonproliferative diabetic retinopathy associated with type 2 diabetes mellitus 01/22/16 E11.3299 Mental health disorder F99 Hypomagnesemia 09/30/16 E83.42 Hyperlipidemia 09/30/16 E78.5 HSV-1 (herpes simplex virus 1) infection 03/12/17 B00.9 Gastroparesis 06/28/16 K31.84 Dyspareunia in female 07/09/17 N94.10 Depressive disorder 10/31/14 F32.9 Chronic nausea R11.0 Chronic fatigue 07/19/15 R53.82 Atrophic vaginitis 07/09/17 N95.2 Medical History Medical History Punctate keratitis of both eyes Ulcer of foot due to secondary diabetes Umbilical hernia (03/11/18) 03/17/2018: [facility] 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 Ferrer Tobacco Smoking/Tobacco Use Status: Current every day Tobacco Type: cigarettes Smoking packs per day: 1 Smoking cigarettes per day: 20.0 Passive smoking exposure: Yes Alcohol Alcohol Intake: never Substance Use Substance use: Occasionally Substance use type: former substance user and marijuana Details: Pt. states no additional rec drugs in over 11 years Vital Signs and Lab Results Vital Signs Most Recent Vital Signs in EMR: Most Recent Vital Signs Temp Pulse Resp BP Pulse Ox 36.4 C L 85 16 118/81 97 01/09/24 08:26 01/09/24 08:26 01/09/24 08:26 01/09/24 08:26 01/09/24 08:26 Point of Care Results Point of Care Results: Finger Stick Blood Glucose 373 01/09/24 08:35 Lab Results Blood Type / Crossmatch: No Data to Display Complete Blood Count: No Data to Display Complete Metabolic Panel: No Data to Display Liver Function Panel: No Data to Display Coagulation Panel: No Data to Display Cardiac Panel: No Data to Display Arterial Blood Gas: No Data to Display Venous Blood Gas: No Data to Display Pancreas Panel: No Data to Display Thyroid Panel: No Data to Display Infectious Disease: No Data to Display Blood Cultures: No Data to Display Toxicology Panel: No Data to Display Panel: No Data to Display Imaging and Studies Imaging and Studies Study information below may be from another EMR and interpreted by another provider. Please see original notes in EMR for more complete details. EKG Summary: Sinus rhythm...normal P axis, V-rate 60- 99 Low voltage, extremity and precordial leads...extremity<0.5mV, precordial<1.0mV sinus rhtyhm, normal axis, normal intervals, non ischemic I have reviewed and I agree with the emergency room physician's ECG interpretation. Electronically signed by: <Electronically signed by Tram Underwood M.D. in [place]> 11/24/23 0820 Cosigned by: Pulmonary Function Summary: IMPRESSION: While there is no evidence of obstructive or restrictive lung disease there is isolated elevation in airways resistance, which may signal early developing obstructive lung disease; therefore, clinical correlation recommended. If the diagnosis of asthma is in question, proceeding with Methacholine Challenge testing may prove to be useful. 01/28/15 Anesthesia Assessment and Plan Anesthesia History Personal History: No History of Anesthesia Complications Family History: No Family History of Anesthesia Complications Exercise Tolerance Exercise Tolerance: Metabolic Equivalents<4 Pertinent Negatives Pertinent Negatives: No Symptoms of GERD (on meds) and No Major Cardiovascular Symptoms or Complaints Cardiac & Pulmonary Exam Cardiac Exam: Normal S1/S2 Heart Sounds Pulmonary Exam: Clear Bilateral Breath Sounds Implantable Cardiac Device Does patient have a Pacemaker or an ICD?: No Airway Exam Known Difficult Airway: No Mallampati Class: 3 Mouth Opening: Normal (> 3cm) Thyromental Distance: Greater than 3 cm Neck Range of Motion: Full ROM Neck Circumference: Thick Teeth Condition: Edentulous ASA Classification ASA Score: ASA 3 Emergency Case?: No NPO Status NPO Status: NPO Clears >2 hours, Solids >8 hours Status Status: History of Hysterectomy Anesthesia Plan Resuscitation Status: Full Code Anesthesia Technique: MAC Anesthesia Airway Planned: Natural Airway Monitors Used: Standard Monitors
[2024-01-09 09:02] VITALS: BMI 41.1
[2024-01-09] MEDS: Tetracaine 0.5% 4 ML BTL OS (09:57)
[2024-01-09] MEDS: Povidone-Iodine Ophth 30 ML BTL (10:06)
[2024-01-09] MEDS: Balanced Salt Soln.-PLUS 500 ML BAG OP (10:06)
[2024-01-09] MEDS: Duovisc Viscoelastic System EACH 1 EACH (10:06)
[2024-01-09] MEDS: Lidocaine 1% Pres-Free 5 ML VIAL (10:07)
--- NOTE | 2024-01-09 10:26 | W.PM.DSUDISC ---
Date of service: 01/09/24 Time of Service: 10:26 Discharge Plan Disposition Patient Disposition: Home Discharge Details Attending Provider: Joao Dougherty Primary Care Provider: Lorena Mann Home Meds and New Rx's Prescriptions: No Action methadone 10 mg/mL concentrate 77 mg PO DAILY Patient Comments: 77 mg lorazepam 0.5 mg tablet 0.5 mg PO DAILY PRN lurasidone [Latuda] 40 mg tablet 120 mg PO DAILY Patient Comments: per larissa per pt report, 10/24/23, ik - maybe too much? but HAS helped - Rx Instructions: must administer with food (at least 350 calories) valacyclovir 500 mg tablet 500 mg PO DAILY Qty: 90 3RF magnesium oxide 400 mg (241.3 mg magnesium) tablet 400 mg PO BID Jardiance 25 mg tablet 25 mg PO DAILY AM Qty: 90 3RF Patient Comments: pt states not taking Rx Instructions: Administer once daily in the morning, with or without food albuterol sulfate [ProAir HFA] 90 mcg/actuation HFA aerosol inhaler 1 - 2 puff Inhalation Q4-6H PRN Qty: 1 1RF Rx Instructions: DISPENSE ALBUTEROL INHALER BRAND COVERED BY INSURANCE insulin degludec [Tresiba FlexTouch U-100] 100 unit/mL (3 mL) insulin pen 146 unit subcut QHS metoclopramide HCl 10 mg tablet 10 mg PO TID Rx Instructions: administer 30 minutes before meals dextroamphetamine-amphetamine [Adderall] 30 mg tablet 30 mg PO BID Rx Instructions: administer doses at least 4-6 hours apart alcohol swabs [Alcohol Pads] Pads, Medicated 1 pad Topical QID Qty: 400 3RF sumatriptan succinate 100 mg tablet 100 mg PO ONCE MDD 200 mg PRN (Reason: migraine headache) Qty: 30 2RF Rx Instructions: A second dose can be taken if no response after 2 hours hydroxyzine HCl 50 mg tablet 50 mg PO TID PRN Patient Comments: note dated 10/27/18 [facility] Trudy Ray [facility]gc atorvastatin 10 mg tablet 10 mg PO QHS Qty: 90 0RF acetaminophen 500 mg tablet 500 - 1,000 mg PO Q8H MDD 3000 mg PRN (Reason: fever or pain) Qty: 180 0RF Rx Instructions: 1 month supply (DME) pen needle, diabetic [BD Ultra-Fine Yamini Pen Needle] 32 gauge x 5/32 needle See Rx Instructions .ROUTE .COMPLEX Qty: 100 0RF Dose Instruction: USE TO ADMINISTER INSULIN ONCE DAILY Rx Instructions: USE TO ADMINISTER INSULIN ONCE DAILY Gvoke HypoPen 2-Pack 1 mg/0.2 mL auto-injector 1 mg subcut ONCE Qty: 0.4 1RF Rx Instructions: HYPOGLYCEMIA; as a single dose; may repeat once after 15 minutes if no response (DME) blood-glucose meter Misc See Rx Instructions .Route Qty: 1 0RF Rx Instructions: One Touch meter (DME) lancets Misc See Rx Instructions .ROUTE .MEDSUPPLY Qty: 400 3RF Rx Instructions: As directed to check blood glucose four times daily. On insulin. Dispense one touch ultra (DME) Blood Glucose Test Strip See Rx Instructions .MEDSUPPLY Qty: 400 3RF Rx Instructions: As directed to check blood glucose four times daily. On insulin. Dispense one touch ultra (DME) Dexcom G6 Transmitter Device See Rx Instructions .Route Qty: 3 3RF Rx Instructions: As directed (DME) Dexcom G6 Sensor Device See Rx Instructions .Route Qty: 3 3RF Rx Instructions: As directed pregabalin 200 mg capsule 200 mg PO TID Qty: 270 0RF celecoxib 200 mg capsule See Rx Instructions .ROUTE .COMPLEX Qty: 30 6RF Dose Instruction: TAKE 1 CAPSULE BY MOUTH TWICE DAILY(FOR BACK AND LEG PAIN, DO NOT MIX WITH OTHER NSAIDS) Rx Instructions: TAKE 1 CAPSULE BY MOUTH TWICE DAILY(FOR BACK AND LEG PAIN, DO NOT MIX WITH OTHER NSAIDS) nystatin 100,000 unit/gram powder 1 applic Topical BID PRN (Reason: fungal skin infection) Qty: 30 3RF Rx Instructions: Apply powder to affected area under R breast twice daily omeprazole 40 mg capsule,delayed release(DR/EC) 40 mg PO DAILY Qty: 90 0RF ondansetron 4 mg tablet,disintegrating See Rx Instructions .ROUTE .COMPLEX Qty: 60 0RF Dose Instruction: DISSOLVE TWO TABLETS ON THE TONGUE TWICE A DAY NEEDED FOR FOR NAUSEA AND VOMITING Rx Instructions: DISSOLVE TWO TABLETS ON THE TONGUE TWICE A DAY NEEDED FOR FOR NAUSEA AND VOMITING insulin aspart U-100 [Novolog FlexPen U-100 Insulin] 100 unit/mL (3 mL) insulin pen 15 unit subcut AC Qty: 15 3RF Rx Instructions: 10-15 units sliding scale before meals clonidine HCl 0.2 mg tablet 0.2 mg PO HS Patient Comments: TAKE 1 TABLET BY MOUTH EVERY NIGHT AT BEDTIME lidocaine [Lidoderm] 5 % adhesive patch,medicated 1 patch topical DAILY Qty: 15 0RF Rx Instructions: leave on most painful area for up to 12 hrs diclofenac sodium 1 % gel 2 g topical QID Qty: 100 0RF Rx Instructions: apply to single elbow, wrist or hand; for hand includes palm/fingers/back of hand Discharge Instructions Stand Alone Forms: [facility] Post-Op Cataract, Chanell Velazco (DSU) Discharge Orders Discharge Orders: Discharge Order (Routine); Ordered 01/09/24 Ordered By: Joao Dougherty DS: Diagnosis Discharge Diagnosis (1) Cortical age-related cataract, left eye: Status: Resolved
--- NOTE | 2024-01-09 10:27 | W.PM.OP ---
Date of service: 01/09/24 Time of Service: 10:27 Operative Note Operative Note DATE OF PROCEDURE: 01/09/24 PRE-OP DIAGNOSIS: Cortical cataract, left eye POST-OP DIAGNOSIS: same PROCEDURE: Cataract extraction using phacoemulsification with intraocular lens implant, left eye SURGEON: Joao Dougherty ANESTHESIA TYPE: Local By Surgeon and MAC Refer to Anesthesia Record PATHOLOGY: none sent COMPLICATIONS: None Patient was transported to: same day Patient's condition: stable Implants: Papo [employer] Papo Tecnis Eyhance [id number] Indications: Progressive decreased vision due to cataract, left eye Procedure Description: CATARACT SURGERY OPERATIVE REPORT PREOPERATIVE DIAGNOSIS: 1. Cortical cataract, left eye POSTOPERATIVE DIAGNOSIS: Same OPERATION: 1. Cataract extraction using phacoemulsification with posterior chamber intraocular lens implant, left eye. IOL: IOL Carpentry Specialist/Model: Pap[employer] Papo Tecnis Eyhance DIB00 IOL Power: + 20.5 diopters IOL Serial Number: [id number] Optic Diameter: 6.0 mm Haptic/Overall Diameter: 13.0 mm PHACO INFO: EricOriel Sea Salt Vision System with OZil and Active Fluidics Cumulative Dispersed Energy (CDE): 3.87 seconds SURGEON: Joao Dougherty MD, [place] ANESTHESIA: Monitored [facility] (MAC), with local sub-tenon's anesthetic infiltration COMPLICATIONS: None SPECIMENS: None INDICATIONS FOR PROCEDURE: The patient is a 43-year-old lady with history of mature right cataract of the right eye and 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 She has already undergone cataract surgery in the right eye and is doing well postoperatively. She now presents for cataract surgery in the left eye. See office notes for detailed information. PROCEDURE: The correct surgical eye was identified and marked as the left eye and the pupil was dilated in the preoperative area using mydriatics and cycloplegics. The dilated pupil size was 6.0 mm. Oral sedation was administered in the form of an Imprimis MKO Melt (midazolam 3mg/ketamine 25mg/ondansetron 2mg). . The patient was brought to the operating room where cardiopulmonary monitoring was instituted and surgical time-out was performed, confirming the correct operative eye and IOL power. Topical anesthesia was administered and ophthalmic povidone-iodine 5% was instilled into the conjunctival fornices. The nuvia-ocular area was prepped with Betadine 10% solution and draped in the usual sterile fashion for intraocular surgery, including an aperture drape. A Tegaderm transparent film dressing was cut in half and used to cover the lashes and lid margins. Care was taken to sequester the lashes and lid margins under the Tegaderm dressing. A lid speculum was placed between the lids of the operative eye and the Eric LuxOR Revalia operating microscope was maneuvered into position. Echo scissors were then used to make a conjunctival buttonhole approximately 6mm posterior to the limbus in the inferonasal quadrant. Blunt dissection was carried out to expose bare sclera, and a blunt-tipped sub-tenon?s anesthesia cannula was introduced and passed posteriorly along the globe where non-preserved plain lidocaine was injected into posterior sub-Tenon?s space. A sideport knife was used to make a paracentesis port. Intraocular phenylephrine/lidocaine was injected into the anterior chamber.. The anterior chamber was filled with viscoelastic. A keratome knife was used to construct a 2-plane near-clear corneal tunnel extending 2.0mm into clear cornea. A flap was raised on the anterior capsule and capsulorhexis forceps were used to complete a continuous curvilinear capsulorhexis of 5.0 mm. Balanced salt solution was then used to perform cortical cleaving hydrodissection and nuclear hydrodelineation until the lens could be freely rotated within the capsular bag. The lens nucleus was then disassembled and removed within the capsular bag and iris plane using phacoemulsification. Residual cortical material was removed using the irrigation/aspiration handpiece. The posterior capsule was carefully polished to remove as much residual lens epithelial cells as safely possible. The capsular bag was then inflated and the anterior chamber deepened with viscoelastic. The lens implant described above was inserted into the capsular bag using the Papo and Papo Simplicity pre-loaded injector. A Kuglen hook was used to dial the IOL into position. Residual viscoelastic was then removed first from posterior to the IOL, then from the anterior chamber using the I/A handpiece. The lens implant was noted to center nicely within the capsular bag. The incisions were stromally hydrated, and the anterior chamber was reformed using BSS. Then 0.5cc of moxifloxacin 1.0mg/ml were injected into the capsular bag and anterior chamber. The incisions were checked with a Weck spear and found to be secure. Several drops of ophthalmic povidone-iodine 5% were then applied to the eye followed by two drops of Imprimis combination prednisolone/moxifloxacin/nepafenac solution. The drapes were removed and a clear plastic protective eye shield was placed over the eye. The patient was then returned to Same Day Surgery in stable condition.
[2024-01-09 10:28] VITALS: BP 109/75; PULSE 88; RESP 18; TEMP 36.1; O2SAT 95
--- NOTE | 2024-01-09 10:40 | W.ANESPOSTOP ---
Postoperative Evaluation Date, Time and Location Date Performed: 01/09/24 Time Performed: 10:40 Patient Location: Day Surgery Unit Vital Signs Most Recent Imported Vital Signs: Most Recent Vital Signs Temp Pulse Resp BP Pulse Ox 36.1 C L 88 18 109/75 95 01/09/24 10:28 01/09/24 10:28 01/09/24 10:28 01/09/24 10:28 01/09/24 10:28 Pain Score Most Recent Pain Score: Most Recent Pain Score Pain Level 0 01/09/24 10:28 Assessment Mental Status: Awake (Alert & Oriented to Patient Baseline) Airway and Respiratory Function: Patent airway with normal (patient baseline) respiratory exam Cardiovascular Function: Hemodynamically Stable Hydration Status: Adequately Hydrated Nausea & Vomiting: No Nausea or Vomiting Pain: Pt. Denies Any Pain Peripheral Nerve Block: Patient did not receive a nerve block
[2024-01-09 10:44] VITALS: BP 114/82; PULSE 86; RESP 16; TEMP 36; O2SAT 94
== END 2024-01-09 10:54 | disposition home or self-care (01) ==
LOC: SUR 08:08
PROVIDERS: PCP Nurse Practitioner Adult Health; Visit Provider Ophthalmology
PROC: (CPT 66984; principal; 2024-01-09 10:30)
DX: H25.012 Cortical age-related cataract, left eye (principal); F17.200 Nicotine dependence, unspecified, uncomplicated; Z98.41 Cataract extraction status, right eye
CPT/HCPCS: 66984; 00123; V2632; J2003

== ENCOUNTER 2024-01-12 19:41 | Emergency (ER) | payer OTHER, SELFPAY ==
[2024-01-12 19:48] VITALS: BP 199/106; PULSE 83; RESP 21; TEMP 36.6; O2SAT 97
--- NOTE | 2024-01-12 20:04 | W.ED.GENAD ---
Discharge Plan Disposition Patient Disposition: Home Condition: Stable Discharge Details Clinical Impression: Migraine Primary Care Provider: Lorena Mann ED Provider: Yulissa Love Home Meds and New Rx's Prescriptions: No Action methadone 10 mg/mL concentrate 77 mg PO DAILY Patient Comments: 77 mg lorazepam 0.5 mg tablet 0.5 mg PO DAILY PRN lurasidone [Latuda] 40 mg tablet 120 mg PO DAILY Patient Comments: per larissa per pt report, 10/24/23, ik - maybe too much? but HAS helped - Rx Instructions: must administer with food (at least 350 calories) valacyclovir 500 mg tablet 500 mg PO DAILY Qty: 90 3RF magnesium oxide 400 mg (241.3 mg magnesium) tablet 400 mg PO BID Jardiance 25 mg tablet 25 mg PO DAILY AM Qty: 90 3RF Patient Comments: pt states not taking Rx Instructions: Administer once daily in the morning, with or without food albuterol sulfate [ProAir HFA] 90 mcg/actuation HFA aerosol inhaler 1 - 2 puff Inhalation Q4-6H PRN Qty: 1 1RF Rx Instructions: DISPENSE ALBUTEROL INHALER BRAND COVERED BY INSURANCE insulin degludec [Tresiba FlexTouch U-100] 100 unit/mL (3 mL) insulin pen 146 unit subcut QHS metoclopramide HCl 10 mg tablet 10 mg PO TID Rx Instructions: administer 30 minutes before meals dextroamphetamine-amphetamine [Adderall] 30 mg tablet 30 mg PO BID Rx Instructions: administer doses at least 4-6 hours apart alcohol swabs [Alcohol Pads] Pads, Medicated 1 pad Topical QID Qty: 400 3RF sumatriptan succinate 100 mg tablet 100 mg PO ONCE MDD 200 mg PRN (Reason: migraine headache) Qty: 30 2RF Rx Instructions: A second dose can be taken if no response after 2 hours hydroxyzine HCl 50 mg tablet 50 mg PO TID PRN Patient Comments: note dated 10/27/18 [facility] [place]udy [place] [facility] [place] 10 mg tablet 10 mg PO QHS Qty: 90 0RF acetaminophen 500 mg tablet 500 - 1,000 mg PO Q8H MDD 3000 mg PRN (Reason: fever or pain) Qty: 180 0RF Rx Instructions: 1 month supply ([facility]) pen needle, diabetic [BD Ultra-Fine Yamini Pen Needle] 32 gauge x 5/32 needle See Rx Instructions .ROUTE .COMPLEX Qty: 100 0RF Dose Instruction: USE TO ADMINISTER INSULIN ONCE DAILY Rx Instructions: USE TO ADMINISTER INSULIN ONCE DAILY Gvoke HypoPen 2-Pack 1 mg/0.2 mL auto-injector 1 mg subcut ONCE Qty: 0.4 1RF Rx Instructions: HYPOGLYCEMIA; as a single dose; may repeat once after 15 minutes if no response (DME) blood-glucose meter Misc See Rx Instructions .Route Qty: 1 0RF Rx Instructions: One Touch meter (DME) lancets Misc See Rx Instructions .ROUTE .MEDSUPPLY Qty: 400 3RF Rx Instructions: As directed to check blood glucose four times daily. On insulin. Dispense one touch ultra (DME) Blood Glucose Test Strip See Rx Instructions .MEDSUPPLY Qty: 400 3RF Rx Instructions: As directed to check blood glucose four times daily. On insulin. Dispense one touch ultra (DME) Dexcom G6 Transmitter Device See Rx Instructions .Route Qty: 3 3RF Rx Instructions: As directed (DME) Dexcom G6 Sensor Device See Rx Instructions .Route Qty: 3 3RF Rx Instructions: As directed pregabalin 200 mg capsule 200 mg PO TID Qty: 270 0RF celecoxib 200 mg capsule See Rx Instructions .ROUTE .COMPLEX Qty: 30 6RF Dose Instruction: TAKE 1 CAPSULE BY MOUTH TWICE DAILY(FOR BACK AND LEG PAIN, DO NOT MIX WITH OTHER NSAIDS) Rx Instructions: TAKE 1 CAPSULE BY MOUTH TWICE DAILY(FOR BACK AND LEG PAIN, DO NOT MIX WITH OTHER NSAIDS) nystatin 100,000 unit/gram powder 1 applic Topical BID PRN (Reason: fungal skin infection) Qty: 30 3RF Rx Instructions: Apply powder to affected area under R breast twice daily omeprazole 40 mg capsule,delayed release(DR/EC) 40 mg PO DAILY Qty: 90 0RF ondansetron 4 mg tablet,disintegrating See Rx Instructions .ROUTE .COMPLEX Qty: 60 0RF Dose Instruction: DISSOLVE TWO TABLETS ON THE TONGUE TWICE A DAY NEEDED FOR FOR NAUSEA AND VOMITING Rx Instructions: DISSOLVE TWO TABLETS ON THE TONGUE TWICE A DAY NEEDED FOR FOR NAUSEA AND VOMITING insulin aspart U-100 [Novolog FlexPen U-100 Insulin] 100 unit/mL (3 mL) insulin pen 15 unit subcut AC Qty: 15 3RF Rx Instructions: 10-15 units sliding scale before meals clonidine HCl 0.2 mg tablet 0.2 mg PO HS Patient Comments: TAKE 1 TABLET BY MOUTH EVERY NIGHT AT BEDTIME methocarbamol 500 mg tablet 500 mg PO TID Patient Comments: TAKE 1 TABLET BY MOUTH THREE TIMES DAILY divalproex 500 mg tablet extended release 24 hr 1,000 mg PO Patient Comments: TAKE 2 TABLETS BY MOUTH EVERY NIGHT AT BEDTIME FOR 5 DAYS FOR MIGRAINE LASTING LONGER THAN 72 HOURS lidocaine [Lidoderm] 5 % adhesive patch,medicated 1 patch topical DAILY Qty: 15 0RF Rx Instructions: leave on most painful area for up to 12 hrs diclofenac sodium 1 % gel 2 g topical QID Qty: 100 0RF Rx Instructions: apply to single elbow, wrist or hand; for hand includes palm/fingers/back of hand Discharge Instructions Instructions: General Headache (ED) Additional Instructions: Please don't forget to fill your migraine medication tomorrow. Follow-up with your Neurologist. Return to the Emergency Department with any worsening symptoms or any other concerns. HPI General Date/Time Provider Initiated Documentation: 01/12/24 19:44. HPI Narrative: The patient is a 43-year-old female with a history of migraine headaches comes emergency department for headache. Reports that she gets migraines once a week. Reports her neurologist is actually starting her on Depakote again because it has been more frequent lately. Reports that on Friday she had cataract surgery and since then her headache has been constant. Reports she has taken her sumatriptan without improvement. Reports it hurts all over worse with bright lights and loud noise that feels identical to prior migraine episode. Denies any recent trauma or injury. Denies fevers or chills. Reports she hopes that the headache would improve on its own but it continues to finally came to the emergency department. 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 Related Data Home Medications Medication Instructions Recorded Confirmed hydroxyzine HCl 50 mg tablet 50 mg PO TID PRN 11/11/18 01/12/24 methadone 10 mg/mL oral concentrate 77 mg PO DAILY 02/12/19 01/12/24 atorvastatin 10 mg tablet 10 mg PO QHS #90 tabs 09/03/19 01/12/24 acetaminophen 500 mg tablet 500 - 1,000 mg (1 - 2 x 500 mg) PO 09/24/19 01/12/24 Q8H PRN fever or pain #180 tab-caps alcohol swabs (Alcohol Pads) 1 pad topical QID #400 ea 10/25/22 01/12/24 dextroamphetamine-amphetamine 30 30 mg PO BID 10/25/22 01/12/24 mg tablet (Adderall) lorazepam 0.5 mg tablet 0.5 mg PO DAILY PRN 03/13/23 01/12/24 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 03/13/23 01/12/24 #90 tab-caps magnesium oxide 400 mg (241.3 mg 400 mg PO BID 04/18/23 01/12/24 magnesium) tablet albuterol sulfate 90 mcg/actuation 1 - 2 puff inhalation Q4-6H PRN ##1 06/20/23 01/12/24 aerosol inhaler (ProAir HFA) empagliflozin 25 mg tablet 25 mg PO DAILY AM #90 tab-caps 06/20/23 01/12/24 (Jardiance) pen needle, diabetic 32 gauge x #100 ea 06/30/23 01/12/24 5/32 (BD Ultra-Fine Yamini Pen Needle) insulin degludec 100 unit/mL (3 146 unit subcut QHS Dx: E11.9 to 08/04/23 01/12/24 mL) subcutaneous pen (Tresiba maintain HbA1c less than 7% FlexTouch U-100 insulin) metoclopramide HCl 10 mg tablet 10 mg PO TID 08/04/23 01/12/24 glucagon 1 mg/0.2 mL subcutaneous 1 mg (0.2 mL) subcut ONCE #0.4 mL 08/05/23 01/12/24 auto-injector (Gvoke HypoPen 2-Pack) blood sugar diagnostic (Blood #400 ea 08/28/23 01/12/24 Glucose Test strips) blood-glucose meter #1 ea 08/28/23 01/12/24 lancets #400 ea 08/28/23 01/12/24 blood-glucose sensor (Dexcom G6 #3 ea 09/25/23 01/12/24 Sensor device) blood-glucose transmitter (Dexcom #3 ea 09/25/23 01/12/24 G6 Transmitter device) pregabalin 200 mg capsule 200 mg PO TID #270 tab-caps 10/08/23 01/12/24 lurasidone 40 mg tablet (Latuda) 120 mg PO DAILY 10/24/23 01/12/24 sumatriptan succinate 100 mg tablet 100 mg PO ONCE PRN migraine 10/29/23 01/12/24 headache #30 tab-caps clonidine HCl 0.2 mg tablet 0.2 mg PO HS 11/21/23 01/12/24 celecoxib 200 mg capsule See Rx Instructions .Route 11/24/23 01/12/24 .COMPLEX #30 caps nystatin 100,000 unit/gram topical 1 applic topical BID PRN fungal 12/04/23 01/12/24 powder skin infection #30 grams omeprazole 40 mg capsule,delayed 40 mg PO DAILY #90 caps 12/15/23 01/12/24 release ondansetron 4 mg disintegrating See Rx Instructions .Route 12/15/23 01/12/24 tablet .COMPLEX #60 tabs diclofenac sodium 1 % topical gel 2 g topical QID #100 grams 01/04/24 01/12/24 lidocaine 5 % topical patch 1 patch topical DAILY #15 ea 01/04/24 01/12/24 (Lidoderm) insulin aspart U-100 100 unit/mL 15 unit (0.15 mL) subcut AC #15 mL 01/05/24 01/12/24 (3 mL) subcutaneous pen (Novolog FlexPen U-100 Insulin aspart) divalproex 500 mg tablet,extended 1,000 mg PO 01/12/24 release 24 hr methocarbamol 500 mg tablet 500 mg PO TID 01/12/24 01/12/24 Previous Rx's Medication Instructions Recorded atorvastatin 10 mg tablet 10 mg PO QHS #90 tabs 09/03/19 acetaminophen 500 mg tablet 500 - 1,000 mg (1 - 2 x 500 mg) PO 09/24/19 Q8H PRN fever or pain #180 tab-caps alcohol swabs (Alcohol Pads) 1 pad topical QID #400 ea 10/25/22 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 03/13/23 #90 tab-caps albuterol sulfate 90 mcg/actuation 1 - 2 puff inhalation Q4-6H PRN ##1 06/20/23 aerosol inhaler (ProAir HFA) empagliflozin 25 mg tablet 25 mg PO DAILY AM #90 tab-caps 06/20/23 (Jardiance) pen needle, diabetic 32 gauge x #100 ea 06/30/23 (BD Ultra-Fine Yamini Pen Needle) glucagon 1 mg/0.2 mL subcutaneous 1 mg (0.2 mL) subcut ONCE #0.4 mL 08/05/23 auto-injector (Gvoke HypoPen 2-Pack) blood sugar diagnostic (Blood #400 ea 08/28/23 Glucose Test strips) blood-glucose meter #1 ea 08/28/23 lancets #400 ea 08/28/23 blood-glucose sensor (Dexcom G6 #3 ea 09/25/23 Sensor device) blood-glucose transmitter (Dexcom #3 ea 09/25/23 G6 Transmitter device) pregabalin 200 mg capsule 200 mg PO TID #270 tab-caps 10/08/23 sumatriptan succinate 100 mg tablet 100 mg PO ONCE PRN migraine 10/29/23 headache #30 tab-caps celecoxib 200 mg capsule See Rx Instructions .Route 11/24/23 .COMPLEX #30 caps nystatin 100,000 unit/gram topical 1 applic topical BID PRN fungal 12/04/23 powder skin infection #30 grams omeprazole 40 mg capsule,delayed 40 mg PO DAILY #90 caps 12/15/23 release ondansetron 4 mg disintegrating See Rx Instructions .Route 12/15/23 tablet .COMPLEX #60 tabs diclofenac sodium 1 % topical gel 2 g topical QID #100 grams 01/04/24 lidocaine 5 % topical patch 1 patch topical DAILY #15 ea 01/04/24 (Lidoderm) insulin aspart U-100 100 unit/mL 15 unit (0.15 mL) subcut AC #15 mL 01/05/24 (3 mL) subcutaneous pen (Novolog FlexPen U-100 Insulin aspart) Allergies Allergy/AdvReac Type Severity Reaction Status Date / Time Penicillins Allergy Severe lip and Verified 01/12/24 19:48 facial swelling lamotrigine [From Lamictal] Allergy Unknown Skin Rash Verified 01/12/24 19:48 clindamycin AdvReac Severe Nausea & Verified 01/12/24 19:48 vomiting aspirin AdvReac Intermediate nausea/pain Verified 01/12/24 19:48 General Stated Complaint: Headache CARLOS: 3 Review of Systems Narrative: Review of systems are negative except as mentioned. Exam Narrative Exam Narrative: The patient is in no acute distress. Patient is speaking in full sentences. Patient is alert, awake and oriented x 3. Her gait is normal. Her speech is clear. She has no facial asymmetry. She has equal strength and sensation to bilateral upper and lower extremities. Cranial nerves II to XII motor function are intact and equal. No pronator drift noted. No limb ataxia appreciated. NIH stroke scale score is 0 at 2000. No truncal ataxia is noted. Heart is regular in rate and rhythm. Lungs are clear to auscultation. Abdomen is soft and nontender to palpation throughout. Pupils are round and equal. Skin is warm and dry. Course Vital Signs Vital signs: Vital Signs Temperature 36.6 C 01/12/24 19:48 Pulse 83 01/12/24 19:48 Respiratory Rate 21 01/12/24 19:48 Blood Pressure 199/106 H 01/12/24 19:48 Pulse Oximetry 97 01/12/24 19:48 Temperature 36.6 C 01/12/24 19:48 Temperature Source Temporal Artery Scan 01/12/24 19:48 Pulse 83 01/12/24 19:48 Respiratory Rate 21 01/12/24 19:48 Respiratory Effort Normal, Non-Labored 01/12/24 19:53 Blood Pressure 199/106 H 01/12/24 19:48 Blood Pressure Position Sitting 01/12/24 19:48 Pulse Oximetry 97 01/12/24 19:48 Oxygen Delivery Method Room Air 01/12/24 19:48 Oxygen Flow Rate 0 01/12/24 19:48 Pain Level 9 01/12/24 19:48 Medical Decision Making The patient's physical exam is benign which is reassuring. She does arrive hypotensive however not surprising given the amount of discomfort that the patient is describing. The patient reports that she normally is improved with Toradol. I talked her about getting IV Toradol and states that she really would just like to get a shot along with Compazine. I talked her about keeping her longer in the emergency department for symptomatic relief and also to observe her vital signs more closely and states that she would rather just go home because it has normally always work for her. For this reason I ordered IM Toradol and IM Compazine. She therefore was discharged afterwards. I have asked her to follow-up with her neurologist and fill her prescription tomorrow. I told her in the meantime should she get worse or develop any new or concerning symptoms return to the emergency department otherwise follow-up on an outpatient basis. Quality:SDOH Health Related Social Needs: No Data to Display PFSH All Active Problems (Updated 01/12/24 @ 20:06 by Yulissa Love DO) Migraine (Chronic) Chronic lumbar radiculopathy (Acute) Obstructive sleep apnea of adult (Acute) [facility] 12/23/23 Muscle spasm of left lower extremity (Acute) Muscle spasm of back (Acute) Diabetic cataract of right eye (Acute) Ulcer of right foot limited to breakdown of skin (Acute 04/16/23) [facility] Ulcer of left foot, limited to breakdown of skin (Acute 04/16/23) [facility] Iron deficiency (Acute) 03/2023 iron studies indicating deficiency (NOT anemic) Migraine (Chronic) [facility] Chronic constipation (Chronic) [facility] Opioid use disorder (Chronic) MAT with methadone Type 2 diabetes mellitus, with long-term current use of insulin (Chronic) With neuropathy & retinopathy (left, mild) Obesity (Chronic) Cirrhosis of liver (Chronic) Asthma (Chronic) Tobacco use disorder (Chronic) Started smoking age 9 Slow transit constipation (Chronic) [facility] 03/17/18 Poorly controlled type 2 diabetes mellitus (Chronic 03/23/18) Polypharmacy (Chronic 12/14/15) Mild nonproliferative diabetic retinopathy associated with type 2 diabetes mellitus (Chronic 01/22/16) Mental health disorder (Chronic) Pt reports being diagnosed with bipolar disorder, disassociative disorder, anxiety, & multiple personality disorder Hypomagnesemia (Chronic 09/30/16) Hyperlipidemia (Chronic 09/30/16) 10-year ASCVD risk = unable to calculate due to not being age 40+ however dx T2DM, so Rx for statin 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 Jimenez [facility] Dyspareunia in female (Chronic 07/09/17) Depressive disorder (Chronic 10/31/14) ADMISSION SUICIDAL THOUGHTS 06/13/14 OD ATTEMPTS IN PAST Chronic nausea (Chronic) EGD 04/16/16 Dr. Ferrer; multifactoral: gastroparesis, constipation, hyperglycemia, methadone Chronic fatigue (Chronic 10/28/15) Atrophic vaginitis (Chronic 07/09/17) Medical History Punctate keratitis of both eyes Ulcer of foot due to secondary diabetes Umbilical hernia (03/11/18) 03/17/2018: [facility] Premature surgical menopause JAD/BSO in late 20s, no HRT Hepatitis C 02/14/2016 labwork: undetectable RNA level Surgical History Status post total hysterectomy and bilateral salpingo-oophorectomy (~2006) noncancerous reasons Status post left foot surgery (10/2022) Left fourth metatarsal head excision for chronic ulcer, osteomyelitis ([facility]/Tamia Vidales DPM) Status post section (~2003) EGD (04/16/16) Dr. Ferrer Family History Mother , 46yo due to kidney & liver failure due to alcohol Substance use disorder Alcohol use disorder Father , 62yo from ALS Substance use disorder Alcohol use disorder ALS (amyotrophic lateral sclerosis) Grandmother Colon cancer Paternal Paternal Uncle Cardiac arrest Substance use disorder Alcohol and Pain Medication Abuse Social History Smoking/Tobacco Use Status: Current every day Tobacco Type: cigarettes Smoking packs per day: 1 Smoking cigarettes per day: 20.0 Tobacco: How many years used: 33 Quit status: considering quitting Smoking risk assessment performed?: Yes Alcohol Intake: never Drug use: Occasionally Substance use type: former substance user and marijuana Details: Pt. 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 Pets and animals: Yes (1 dog, 4 cats) Pets and animals: cat(s) and dog(s) Sexually active: Yes Do you think of yourself as: straight/heterosexual Current gender identity: female Other: 09/2022: pt reports she is engaged What is your relationship status?: How often do you talk on the phone with friends or family?: three or more times per week How often do you get together with friends or relatives?: once per week How often do you attend confucianist or latter day services?: decline to answer Do you belong to any clubs or organized social groups?: no Panel score (0-1 are the most socially isolated patients): 2 What type of physical activity do you participate in: none Duration: decline to answer Frequency: decline to answer Seatbelt use: always Helmet use: No (No reason to wear one) Drive intox 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
[2024-01-12] MEDS: Ketorolac 30 MG/ML VIAL IM (20:12)
[2024-01-12] MEDS: Prochlorperazine 10 MG/2 ML VIAL 5 MG IM (20:13)
== END 2024-01-12 20:18 | disposition home or self-care (01) ==
PROVIDERS: Emergency Provider Emergency Medicine; PCP Nurse Practitioner Adult Health
DX: G43.909 Migraine, unspecified, not intractable, without status migrainosus (principal); E11.40 Type 2 diabetes mellitus with diabetic neuropathy, unspecified; E11.3299 Type 2 diabetes mellitus with mild nonproliferative diabetic retinopathy without macular edema, unspecified eye; F17.210 Nicotine dependence, cigarettes, uncomplicated; Z79.4 Long term (current) use of insulin; Z79.84 Long term (current) use of oral hypoglycemic drugs
CPT/HCPCS: 96372; 99284; 99283; J0780; J1885

== ENCOUNTER 2024-01-12 22:38 | Emergency (ER) | payer OTHER, SELFPAY ==
[2024-01-12 22:43] VITALS: BP 229/117; PULSE 84; RESP 16; TEMP 36.8; O2SAT 98
--- NOTE | 2024-01-12 22:45 | DI.CT_ITS ---
Exam(s) CT HEAD WO EXAM: CT HEAD WO CLINICAL HISTORY: hypertensive, headache, eval for tumor. TECHNIQUE: Imaging Protocol: Axial computed tomography images with coronal and sagittal reformatted images were created and reviewed COMPARISON: CT HEAD WITHOUT CONTRAST from 07/20/2015 FINDINGS: There are no skull fractures. There is no fluid in the visualized paranasal sinuses. There is no evidence of intracranial hemorrhage, mass effect, or shift of midline structures. There are no extra-axial fluid collections. The ventricles are not enlarged or shifted and there is no blo od within the ventricular system nor within the basal cisterns. There has been interval bilateral cataract surgery when compared to 2015 IMPRESSION: No acute intracranial findings on this noninfused CT scan of the brain. RADIATION DOSE DELIVERED: 772.37mGy.cm Total DLP DATA REPOSITORY: All CT scans at this facility are submitted to the National Radiology Data Registry (NRDR) Dose Index Registry (DIR) with the [employer] (ACR). RADIATION OPTIMIZATION: All CT scans at this facility use at least one of these dose optimization te chniques: automated exposure control; mA and/or kV adjustment per patient size (includes targeted exa ms where dose is matched to clinical indication); or iterative reconstruction.
--- NOTE | 2024-01-12 23:12 | ED.GENADUL_ITS ---
Discharge Plan Disposition Patient Disposition: Home Condition: Good Discharge Details Chief Complaint: Recheck Clinical Impression: Headache, migraine, Hypertensive urgency Primary Care Provider: Lorena Mann ED Provider: John Mayorga Home Meds and New Rx's Prescriptions: No Action methadone 10 mg/mL concentrate 77 mg PO DAILY Patient Comments: 77 mg lorazepam 0.5 mg tablet 0.5 mg PO DAILY PRN lurasidone [Latuda] 40 mg tablet 120 mg PO DAILY Patient Comments: per larissa per pt report, 10/24/23, ik - maybe too much? but HAS helped - Rx Instructions: must administer with food (at least 350 calories) valacyclovir 500 mg tablet 500 mg PO DAILY Qty: 90 3RF magnesium oxide 400 mg (241.3 mg magnesium) tablet 400 mg PO BID Jardiance 25 mg tablet 25 mg PO DAILY AM Qty: 90 3RF Patient Comments: pt states not taking Rx Instructions: Administer once daily in the morning, with or without food albuterol sulfate [ProAir HFA] 90 mcg/actuation HFA aerosol inhaler 1 - 2 puff Inhalation Q4-6H PRN Qty: 1 1RF Rx Instructions: DISPENSE ALBUTEROL INHALER BRAND COVERED BY INSURANCE insulin degludec [Tresiba FlexTouch U-100] 100 unit/mL (3 mL) insulin pen 146 unit subcut QHS metoclopramide HCl 10 mg tablet 10 mg PO TID Rx Instructions: administer 30 minutes before meals dextroamphetamine-amphetamine [Adderall] 30 mg tablet 30 mg PO BID Rx Instructions: administer doses at least 4-6 hours apart alcohol swabs [Alcohol Pads] Pads, Medicated 1 pad Topical QID Qty: 400 3RF sumatriptan succinate 100 mg tablet 100 mg PO ONCE MDD 200 mg PRN (Reason: migraine headache) Qty: 30 2RF Rx Instructions: A second dose can be taken if no response after 2 hours hydroxyzine HCl 50 mg tablet 50 mg PO TID PRN Patient Comments: note dated 10/27/18 [facility] Trudy Ray [facility] atorvastatin 10 mg tablet 10 mg PO QHS Qty: 90 0RF acetaminophen 500 mg tablet 500 - 1,000 mg PO Q8H MDD 3000 mg PRN (Reason: fever or pain) Qty: 180 0RF Rx Instructions: 1 month supply (DME) pen needle, diabetic [BD Ultra-Fine Yamini Pen Needle] 32 gauge x 5/32 needle See Rx Instructions .ROUTE .COMPLEX Qty: 100 0RF Dose Instruction: USE TO ADMINISTER INSULIN ONCE DAILY Rx Instructions: USE TO ADMINISTER INSULIN ONCE DAILY Gvoke HypoPen 2-Pack 1 mg/0.2 mL auto-injector 1 mg subcut ONCE Qty: 0.4 1RF Rx Instructions: HYPOGLYCEMIA; as a single dose; may repeat once after 15 minutes if no response (DME) blood-glucose meter Misc See Rx Instructions .Route Qty: 1 0RF Rx Instructions: One Touch meter (DME) lancets Misc See Rx Instructions .ROUTE .MEDSUPPLY Qty: 400 3RF Rx Instructions: As directed to check blood glucose four times daily. On insulin. Dispense one touch ultra (DME) Blood Glucose Test Strip See Rx Instructions .MEDSUPPLY Qty: 400 3RF Rx Instructions: As directed to check blood glucose four times daily. On insulin. Dispense one touch ultra (DME) Dexcom G6 Transmitter Device See Rx Instructions .Route Qty: 3 3RF Rx Instructions: As directed (DME) Dexcom G6 Sensor Device See Rx Instructions .Route Qty: 3 3RF Rx Instructions: As directed pregabalin 200 mg capsule 200 mg PO TID Qty: 270 0RF celecoxib 200 mg capsule See Rx Instructions .ROUTE .COMPLEX Qty: 30 6RF Dose Instruction: TAKE 1 CAPSULE BY MOUTH TWICE DAILY(FOR BACK AND LEG PAIN, DO NOT MIX WITH OTHER NSAIDS) Rx Instructions: TAKE 1 CAPSULE BY MOUTH TWICE DAILY(FOR BACK AND LEG PAIN, DO NOT MIX WITH OTHER NSAIDS) nystatin 100,000 unit/gram powder 1 applic Topical BID PRN (Reason: fungal skin infection) Qty: 30 3RF Rx Instructions: Apply powder to affected area under R breast twice daily omeprazole 40 mg capsule,delayed release(DR/EC) 40 mg PO DAILY Qty: 90 0RF ondansetron 4 mg tablet,disintegrating See Rx Instructions .ROUTE .COMPLEX Qty: 60 0RF Dose Instruction: DISSOLVE TWO TABLETS ON THE TONGUE TWICE A DAY NEEDED FOR FOR NAUSEA AND VOMITING Rx Instructions: DISSOLVE TWO TABLETS ON THE TONGUE TWICE A DAY NEEDED FOR FOR NAUSEA AND VOMITING insulin aspart U-100 [Novolog FlexPen U-100 Insulin] 100 unit/mL (3 mL) insulin pen 15 unit subcut AC Qty: 15 3RF Rx Instructions: 10-15 units sliding scale before meals clonidine HCl 0.2 mg tablet 0.2 mg PO HS Patient Comments: TAKE 1 TABLET BY MOUTH EVERY NIGHT AT BEDTIME methocarbamol 500 mg tablet 500 mg PO TID Patient Comments: TAKE 1 TABLET BY MOUTH THREE TIMES DAILY divalproex 500 mg tablet extended release 24 hr 1,000 mg PO DAILY Patient Comments: TAKE 2 TABLETS BY MOUTH EVERY NIGHT AT BEDTIME FOR 5 DAYS FOR MIGRAINE LASTING LONGER THAN 72 HOURS lidocaine [Lidoderm] 5 % adhesive patch,medicated 1 patch topical DAILY Qty: 15 0RF Rx Instructions: leave on most painful area for up to 12 hrs diclofenac sodium 1 % gel 2 g topical QID Qty: 100 0RF Rx Instructions: apply to single elbow, wrist or hand; for hand includes palm/fingers/back of hand Discharge Instructions Instructions: Hypertension (ED), General Headache (ED) Additional Instructions: At this time your CAT scan is returned normal. Your headache has improved. Please drink plenty fluids at home and stay well-hydrated. Please follow-up closely with your primary care provider for reassessment for potential return of your elevated blood pressure. If your blood pressure remains high you may require outpatient antihypertensive medications. If you notice any worsening of your symptoms, or any new symptoms such as vomiting, diarrhea, fever, chills, shortness of breath, chest pain, numbness, weakness, or fainting , please return immediately to the emergency department for reevaluation. Please follow up with your primary care provider as soon as possible for reassessment and reevaluation. As always, it was a pleasure participating in your medical care today. Referrals: Lorena Mann NP [Primary Care Provider] - [facility] General Date/Time Provider Initiated Documentation: 01/12/24 22:40 . HPI Narrative: 43-year-old female with a past medical history of chronic recurrent migraines that occur relatively every week, currently on Depakote and migraine abortive medications, managed by neurology, type 2 diabetes, high cholesterol, asthma, obesity, who is not on any blood thinners, chronic methadone use, hepatitis C, and hysterectomy and bilateral salpingo-oophorectomy, presents today for headache. Patient recently had cataract surgery performed 4 days ago on Friday, this was performed on her left eye, before that she had the right eye surgically intervened on over a month ago, she states that since Friday she has had which she describes as her classic migraine headache for the last 3 to 4 days. She tried taking all of her normal medications and abortive medications with no improvement. Migraine headache is described as achy in the front of her head particularly on the right-hand side with slight radiation backwards towards her neck. She admits to a few episodes of vomiting. She denies any eyeball pain postoperatively. She denies any significant vision changes. Symptoms are made worse with light and loud noise. She denies any fever or chills. She states that this feels identical to her previous migraines just slightly worse than normal. She was here in the emergency department a few hours ago and was seen and evaluated. At that time she did not want an IV and asked for Toradol and Compazine which normally relieves her migraines. She elected to get this done with intramuscular injections and asked to go home immediately thereafter. She was then discharged. Unfortunately her headache has continued and not improved, and so she came back for further assessment. The patient denies any headache red flags of worst headache of life, thunderclap headache, fever, chills, concerning family history of polycystic kidney disease, Marfan syndrome, Gayatri-Danlos syndrome, abdominal aortic aneurysm, aortic dissection, or intracranial aneurysm. Patient denies any other complaints at this time. No other modifying factors. Related Data Home Medications Medication Instructions Recorded Confirmed hydroxyzine HCl 50 mg tablet 50 mg PO TID PRN 11/11/18 01/12/24 methadone 10 mg/mL oral concentrate 77 mg PO DAILY 02/12/19 01/12/24 atorvastatin 10 mg tablet 10 mg PO QHS #90 tabs 09/03/19 01/12/24 acetaminophen 500 mg tablet 500 - 1,000 mg (1 - 2 x 500 mg) PO 09/24/19 01/12/24 Q8H PRN fever or pain #180 tab-caps alcohol swabs (Alcohol Pads) 1 pad topical QID #400 ea 10/25/22 01/12/24 dextroamphetamine-amphetamine 30 30 mg PO BID 10/25/22 01/12/24 mg tablet (Adderall) lorazepam 0.5 mg tablet 0.5 mg PO DAILY PRN 03/13/23 01/12/24 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 03/13/23 01/12/24 #90 tab-caps magnesium oxide 400 mg (241.3 mg 400 mg PO BID 04/18/23 01/12/24 magnesium) tablet albuterol sulfate 90 mcg/actuation 1 - 2 puff inhalation Q4-6H PRN ##1 06/20/23 01/12/24 aerosol inhaler (ProAir HFA) empagliflozin 25 mg tablet 25 mg PO DAILY AM #90 tab-caps 06/20/23 01/12/24 (Jardiance) pen needle, diabetic 32 gauge x #100 ea 06/30/23 01/12/24 (BD Ultra-Fine Yamini Pen Needle) insulin degludec 100 unit/mL (3 146 unit subcut QHS Dx: E11.9 to 08/04/23 01/12/24 mL) subcutaneous pen (Tresiba maintain HbA1c less than 7% FlexTouch U-100 insulin) metoclopramide HCl 10 mg tablet 10 mg PO TID 08/04/23 01/12/24 glucagon 1 mg/0.2 mL subcutaneous 1 mg (0.2 mL) subcut ONCE #0.4 mL 08/05/23 01/12/24 auto-injector (Zuffle HypoPen 2-Pack) blood sugar diagnostic (Blood #400 ea 08/28/23 01/12/24 Glucose Test strips) blood-glucose meter #1 ea 08/28/23 01/12/24 lancets #400 ea 08/28/23 01/12/24 blood-glucose sensor (Dexcom G6 #3 ea 09/25/23 01/12/24 Sensor device) blood-glucose transmitter (Dexcom #3 ea 09/25/23 01/12/24 G6 Transmitter device) pregabalin 200 mg capsule 200 mg PO TID #270 tab-caps 10/08/23 01/12/24 lurasidone 40 mg tablet (Latuda) 120 mg PO DAILY 10/24/23 01/12/24 sumatriptan succinate 100 mg tablet 100 mg PO ONCE PRN migraine 10/29/23 01/12/24 headache #30 tab-caps clonidine HCl 0.2 mg tablet 0.2 mg PO HS 11/21/23 01/12/24 celecoxib 200 mg capsule See Rx Instructions .Route 11/24/23 01/12/24 .COMPLEX #30 caps nystatin 100,000 unit/gram topical 1 applic topical BID PRN fungal 12/04/23 01/12/24 powder skin infection #30 grams omeprazole 40 mg capsule,delayed 40 mg PO DAILY #90 caps 12/15/23 01/12/24 release ondansetron 4 mg disintegrating See Rx Instructions .Route 12/15/23 01/12/24 tablet .COMPLEX #60 tabs diclofenac sodium 1 % topical gel 2 g topical QID #100 grams 01/04/24 01/12/24 lidocaine 5 % topical patch 1 patch topical DAILY #15 ea 01/04/24 01/12/24 (Lidoderm) insulin aspart U-100 100 unit/mL 15 unit (0.15 mL) subcut AC #15 mL 01/05/24 01/12/24 (3 mL) subcutaneous pen (Novolog FlexPen U-100 Insulin aspart) divalproex 500 mg tablet,extended 1,000 mg PO DAILY 01/12/24 01/12/24 release 24 hr methocarbamol 500 mg tablet 500 mg PO TID 01/12/24 01/12/24 Previous Rx's Medication Instructions Recorded atorvastatin 10 mg tablet 10 mg PO QHS #90 tabs 09/03/19 acetaminophen 500 mg tablet 500 - 1,000 mg (1 - 2 x 500 mg) PO 09/24/19 Q8H PRN fever or pain #180 tab-caps alcohol swabs (Alcohol Pads) 1 pad topical QID #400 ea 10/25/22 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 03/13/23 #90 tab-caps albuterol sulfate 90 mcg/actuation 1 - 2 puff inhalation Q4-6H PRN ##1 06/20/23 aerosol inhaler (ProAir HFA) empagliflozin 25 mg tablet 25 mg PO DAILY AM #90 tab-caps 06/20/23 (Jardiance) pen needle, diabetic 32 gauge x #100 ea 06/30/23 (BD Ultra-Fine Yamini Pen Needle) glucagon 1 mg/0.2 mL subcutaneous 1 mg (0.2 mL) subcut ONCE #0.4 mL 08/05/23 auto-injector (GvApoCell HypoPen 2-Pack) blood sugar diagnostic (Blood #400 ea 08/28/23 Glucose Test strips) blood-glucose meter #1 ea 08/28/23 lancets #400 ea 08/28/23 blood-glucose sensor (Dexcom G6 #3 ea 09/25/23 Sensor device) blood-glucose transmitter (Dexcom #3 ea 09/25/23 G6 Transmitter device) pregabalin 200 mg capsule 200 mg PO TID #270 tab-caps 10/08/23 sumatriptan succinate 100 mg tablet 100 mg PO ONCE PRN migraine 10/29/23 headache #30 tab-caps celecoxib 200 mg capsule See Rx Instructions .Route 11/24/23 .COMPLEX #30 caps nystatin 100,000 unit/gram topical 1 applic topical BID PRN fungal 12/04/23 powder skin infection #30 grams omeprazole 40 mg capsule,delayed 40 mg PO DAILY #90 caps 12/15/23 release ondansetron 4 mg disintegrating See Rx Instructions .Route 12/15/23 tablet .COMPLEX #60 tabs diclofenac sodium 1 % topical gel 2 g topical QID #100 grams 01/04/24 lidocaine 5 % topical patch 1 patch topical DAILY #15 ea 01/04/24 (Lidoderm) insulin aspart U-100 100 unit/mL 15 unit (0.15 mL) subcut AC #15 mL 01/05/24 (3 mL) subcutaneous pen (Novolog FlexPen U-100 Insulin aspart) Allergies Allergy/AdvReac Type Severity Reaction Status Date / Time Penicillins Allergy Severe lip and Verified 01/12/24 22:47 facial swelling lamotrigine [From Lamictal] Allergy Unknown Skin Rash Verified 01/12/24 22:47 clindamycin AdvReac Severe Nausea & Verified 01/12/24 22:47 vomiting aspirin AdvReac Intermediate nausea/pain Verified 01/12/24 22:47 General Stated Complaint: Recheck CARLOS: 3 Review of Systems All systems reviewed & are unremarkable except as noted in HPI and below Exam Narrative Exam Narrative: 1.Const: Well-nourished, Well-developed, appearing stated age 2.Eyes: PERRL, no conjunctival injection, and symmetrical lids. Intraocular pressures on the left eye range from 21-26 on 6 checks, intraocular pressures on the right eye ranged from 19-26 on 6 checks. Pupils are equal and reactive bilaterally. No hyphema. Patient demonstrates good movement of cervical neck. There is no nuchal rigidity, no nuchal tenderness. Patient is able to flex the neck without any difficulty or significant pain. Negative Kernig's and Brudzinski sign. 3.ENT: Atraumatic external nose and ears. Notably dry MM. Neck: Symmetric, trachea midline, No thyromegaly. 4.CVS: +S1/S2, No murmurs or gallops. Peripheral pulses 2+ and equal in all extremities. Brisk capillary refill in all extremities. 5.RESP: Unlabored respiratory effort. Clear to auscultation bilaterally. No wheezes rales or rhonchi 6.GI: Soft, Nontender/Nondistended, No hepatosplenomegaly. No guarding or rebound. 7.MSK: Normocephalic/Atraumatic, Extremities w/o deformity or ttp No cyanosis or clubbing, Normal movement of all extremities 8.Skin: Warm, Dry. No rashes or lesions. 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 Sensation grossly intact, no focal neurologic deficits. All 6 cardinal planes of vision are fully intact. No evidence of rotatory or vertical nystagmus. The patient demonstrated a normal fi [id number], good dexterity. There was no evidence of dysdiadochokinesia. Patient was able to ambulate without difficulty. There was no wide-based gait. Romberg testing was normal. [id number] testing was normal. Sensation was intact bilaterally as well as muscle strength bilaterally for all extremities. Patient was able to verbalize butter cup with no slurring, or miss pronunciation. 10.Psych: (AAO) x3. Appropriate mood and affect Course Vital Signs Vital signs: Vital Signs Temperature 36.8 C 01/12/24 22:43 Pulse 84 01/12/24 22:43 Respiratory Rate 16 01/12/24 22:43 Blood Pressure 229/117 H 01/12/24 22:43 Pulse Oximetry 98 01/12/24 22:43 Temperature 36.8 C 01/12/24 22:43 Temperature Source Skin 01/12/24 22:43 Pulse 84 01/12/24 22:43 Respiratory Rate 16 01/12/24 22:43 Respiratory Effort Normal, Non-Labored 01/12/24 22:49 Blood Pressure 229/117 H 01/12/24 22:43 Blood Pressure Position Sitting 01/12/24 22:43 Pulse Oximetry 98 01/12/24 22:43 Oxygen Delivery Method Room Air 01/12/24 22:43 Oxygen Flow Rate 0 01/12/24 22:43 Pain Level 10 01/12/24 22:43 Medical Decision Making 43-year-old female with a past medical history of chronic recurrent migraines that occur relatively every week, currently on Depakote and migraine abortive medications, managed by neurology, type 2 diabetes, high cholesterol, asthma, obesity, who is not on any blood thinners, chronic methadone use, hepatitis C, and hysterectomy and bilateral salpingo-oophorectomy, presents today for headache. Patient recently had cataract surgery performed 4 days ago on Friday, this was performed on her left eye, before that she had the right eye surgically intervened on over a month ago, she states that since Friday she has had which she describes as her classic migraine headache for the last 3 to 4 days. She tried taking all of her normal medications and abortive medications with no improvement. Migraine headache is described as achy in the front of her head particularly on the right-hand side with slight radiation backwards towards her neck. She admits to a few episodes of vomiting. She denies any eyeball p ain postoperatively. She denies any significant vision changes. Symptoms are made worse with light and loud noise. She denies any fever or chills. She states that this feels identical to her previous migraines just slightly worse than normal. She was here in the emergency department a few hours ago and was seen and evaluated. At that time she did not want an IV and asked for Toradol and Compazine which normally relieves her migraines. She elected to get this done with intramuscular injections and asked to go home immediately thereafter. She was then discharged. Unfortunately her headache has continued and not improved, and so she came back for further assessment. The patient denies any headache red flags of worst headache of life, thunderclap headache, fever, chills, concerning family history of polycystic kidney disease, Marfan syndrome, Gayatri-Danlos syndrome, abdominal aortic aneurysm, aortic dissection, or intracranial aneurysm. Patient denies any other complaints at this time. No other modifying factors. Exam demonstrates well-appearing female, mild discomfort secondary to light. Notably dry mucous membranes, mild neck achiness, no neck stiffness, nuchal rigidity, negative Kernig's and Brudzinski sign. Normal neurologic assessment with no significant deficits. Concern for resistant migraine headache, intraocular pressure of the left and right eyes appear to be equivalent ranging from 19-26 with an average of 21-22 both eyes. Symptoms and history appear inconsistent with acute angle-closure glaucoma. Symptoms appear inconsistent with subarachnoid hemorrhage based on history. Patient has not had a CAT scan for 9 years, concern for potential malignancy although this is notably low on the differential. Meningitis appears to be clinically inconsistent with no fever. Patient does have notable hypertension right now which is atypical for her, this is of concern as well. Will get a CT scan to rule out acute process, will treat with Compazine, fluids, Solu-Medrol, Ofirmev and Benadryl, will monitor closely and reassess. 1:[address] Gates of ophthalmology did call back and I discussed with her the findings for the patient's intraocular pressure. She states that these numbers are normal at this stage, and will be following up with her closely this week. CT scan of the head has returned and is negative for acute process. Patient did remain hypertensive, she was given 20 of labetalol and she tolerated this well. Blood pressure in the 170s. Hypertensive urgency certainly could have been a component of her symptoms or this may have been slightly related to the pain. Renal function normal. On reassessment patient is feeling much better. Pain has nearly completely resolved. She has no nuchal rigidity or neck pain or stiffness. Patient feels well and is requesting to go home. I did offer continued observation but the patient would like to go home now. With no significant residual headache, with no neck pain or stiffness, with no sudden onset/thunderclap of onset of her symptoms, that her symptoms appearing consistent with subarachnoid hemorrhage or meningitis. No indication for lumbar puncture at this time. Symptoms appear consistent with mild migraine headache. Discussed red flags which to return. I have extensively reviewed the treatment plan and discharge instructions with the patient. I have addressed all patient concerns at this time. The patient was made aware of what symptoms to monitor for that would warrant a return to the emergency department. Discussed the plan with the patient, they demonstrate verbal understanding and agreement with our assessment and plan at this time. The documentation in this chart was dictated using StayTuned dictation software. Please excuse any dictation errors. FINDINGS: Brain: Normal volume for age. No acute intracranial hemorrhage. No evidence of acute large vascular territory infarct. No edema. No midline shift or herniation. Cerebral ventricles: No ventriculomegaly. Paranasal sinuses: Imaged paranasal sinuses appropriately aerated without air- fluid levels. Mastoid air cells: No mastoid effusion. Orbital cavities: Status post bilateral lens replacement. Bones/joints: Unremarkable. No acute osseous finding. Soft tissues: No focal soft tissue abnormality. IMPRESSION: No acute intracranial finding. Thank you for allowing us to participate in the care of your patient Dictated and Authenticated by: Brian Deutsch MD 01/12/2024 11:43 PM Eastern Time ([place] & [place]) Quality:[facility] Related Social Needs: No Data to Display Critical Care Time Critical Care Time Critical Care Time: Yes Total Critical Care Time: 30 Attestation: Upon my evaluation, this patient had a high probability of imminent or life- threatening deterioration, which required my direct attention, intervention, and personal management. I have personally provided 30 minutes of critical care time exclusive of time spent on separately billable procedures. Time includes review of laboratory data, radiology results, discussion with consultants, and monitoring for potential decompensation. Interventions were performed as documented. [facility] All Active Problems (Updated 01/13/24 @ 01:40 by John Mayorga DO) Hypertensive urgency (Acute) Headache, migraine (Chronic) Migraine (Chronic) Chronic lumbar radiculopathy (Acute) Obstructive sleep apnea of adult (Acute) [facility] 12/23/23 Muscle spasm of left lower extremity (Acute) Muscle spasm of back (Acute) Diabetic cataract of right eye (Acute) Ulcer of right foot limited to breakdown of skin (Acute 04/16/23) [facility] Ulcer of left foot, limited to breakdown of skin (Acute 04/16/23) [facility] Iron deficiency (Acute) 03/2023 iron studies indicating deficiency (NOT anemic) Migraine (Chronic) [facility] Chronic constipation (Chronic) [facility] Opioid use disorder (Chronic) MAT with methadone Type 2 diabetes mellitus, with long-term current use of insulin (Chronic) With neuropathy & retinopathy (left, mild) Obesity (Chronic) Cirrhosis of liver (Chronic) Asthma (Chronic) Tobacco use disorder (Chronic) Started smoking age 9 Slow transit constipation (Chronic) [facility] 03/17/18 Poorly controlled type 2 diabetes mellitus (Chronic 03/23/18) Polypharmacy (Chronic 12/14/15) Mild nonproliferative diabetic retinopathy associated with type 2 diabetes mellitus (Chronic 01/22/16) Mental health disorder (Chronic) Pt reports being diagnosed with bipolar disorder, disassociative disorder, anxiety, & multiple personality disorder Hypomagnesemia (Chronic 09/30/16) Hyperlipidemia (Chronic 09/30/16) 10-year ASCVD risk = unable to calculate due to not being age 40+ however dx T2DM, so Rx for statin 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 Jimenez [facility] Dyspareunia in female (Chronic 07/09/17) Depressive disorder (Chronic 10/31/14) ADMISSION SUICIDAL THOUGHTS 06/13/14 OD ATTEMPTS IN PAST Chronic nausea (Chronic) EGD 04/16/16 Dr. Ferrer; multifactoral: gastroparesis, constipation, hyperglycemia, methadone Chronic fatigue (Chronic 07/19/15) Atrophic vaginitis (Chronic 07/09/17) Medical History Punctate keratitis of both eyes Ulcer of foot due to secondary diabetes Umbilical hernia (03/11/18) 03/17/2018: [facility] Premature surgical menopause JAD/BSO in late 20s, no HRT Hepatitis C 02/14/2016 labwork: undetectable RNA level Surgical History Status post total hysterectomy and bilateral salpingo-oophorectomy (~2006) noncancerous reasons Status post left foot surgery (10/2022) Left fourth metatarsal head excision for chronic ulcer, osteomyelitis ([facility]/Tamia Vidales DPM) Status post section (~2003) EGD (04/16/16) Dr. Ferrer Family History Mother , 46yo due to kidney & liver failure due to alcohol Substance use disorder Alcohol use disorder Father , 62yo from ALS Substance use disorder Alcohol use disorder ALS (amyotrophic lateral sclerosis) Grandmother Colon cancer Paternal Paternal Uncle Cardiac arrest Substance use disorder Alcohol and Pain Medication Abuse Social History Smoking/Tobacco Use Status: Current every day Tobacco Type: cigarettes Smoking packs per day: 1 Smoking cigarettes per day: 20.0 Tobacco: How many years used: 33 Quit status: considering quitting Smoking risk assessment performed?: Yes Alcohol Intake: never Drug use: Occasionally Substance use type: former substance user and marijuana Details: Pt. 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 Pets and animals: Yes (1 dog, 4 cats) Pets and animals: cat(s) and dog(s) Sexually active: Yes Do you think of yourself as: straight/heterosexual Current gender identity: female Other: 09/2022: pt reports she is engaged What is your relationship status?: How often do you talk on the phone with friends or family?: three or more times per week How often do you get together with friends or relatives?: once per week How often do you attend moravian or samaritan services?: decline to answer Do you belong to any clubs or organized social groups?: no Panel score (0-1 are the most socially isolated patients): 2 What type of physical activity do you participate in: none Duration: decline to answer Frequency: decline to answer Seatbelt use: always Helmet use: No (No reason to wear one) 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
[2024-01-12 23:16] LABS: Abs Immature Grans 0.07 10^3/uL (0.0-0.06); Absolute Basophil Count 0.06 10^3/uL (0.0-0.2); Absolute Eosinophil Count 0.08 10^3/uL (0.0-0.7); Absolute Lymphocyte Count 2.38 10^3/uL (1.2-3.4); Absolute Monocyte Count 0.67 10^3/uL (0.1-0.8); Absolute Neutrophil Count 10.72 10^3/uL (1.2-6.7); Basophils % 0.4; Eosinophils % 0.6; HCT 43.1 % (36.0-46.0); HGB 14.1 g/dL (11.2-15.7); Immature Grans % 0.5; MCH 27.2 pg (27.0-33.0); MCHC 32.7 % (32.0-36.0); MCV 83 fL (80-95); MPV 11.4 fL (8.0-11.0); Monocytes % 4.8; Neutrophils % 76.7; Platelet Count 209 10^3/uL (130-400); RBC 5.18 10^6/uL (3.93-5.22); RDW-SD 42.5 fL; WBC 13.98 10^3/uL (4.4-10.8)
[2024-01-12] MEDS: methylPREDNISolone SUCC 125 MG VIAL IVP (23:16)
[2024-01-12] MEDS: diphenhydrAMINE 50 MG/ML VIAL 25 MG IVP (23:16)
[2024-01-12] MEDS: Prochlorperazine 10 MG/2 ML VIAL IVP (23:17)
[2024-01-12 23:31] LABS: ALT 25 U/L (14-59); AST 23 U/L (15-37); Albumin 3.7 g/dL (3.4-5.0); Alkaline Phosphatase 140 U/L (46-116); BUN 20 mg/dL (7-18); Bilirubin, Total 0.3 mg/dL (0.2-1.0); CREATININE 0.9 mg/dL (0.55-1.02); Calcium 9.4 mg/dL (8.5-10.1); Chloride 95 mmol/L (98-107); Estimated GFR 80.34 (mL/min/1.73m2); Glucose 264 mg/dL (74-106); Lipase 29 U/L (16-77); Potassium 4.9 mmol/L (3.5-5.1); Sodium 133 mmol/L (136-145); Total Protein 7.7 g/dL (6.4-8.2)
[2024-01-12] MEDS: ACETAMINOPHEN 1,000 MG/100 ML BTL 400 MG IVPB (23:36)
[2024-01-12] MEDS: Lactated Ringers 1,000 ML 1000 ML IV (23:36)
--- NOTE | 2024-01-12 23:45 | DI.VRAD_ITS ---
PROCEDURE INFORMATION: Exam: CT Head Without Contrast Exam date and time: 01/12/2024 11:00 PM Age: 43 years old Clinical indication: Pain; Headache not specified; Prior surgery; Surgery date: 3-7 days post-operative; Surgery type: Eye surgery 3 days ago; Patient HX: Hypertensive, headache, eval for tumor TECHNIQUE: Imaging protocol: Computed tomography of the head without contrast. Radiation optimization: All CT scans at this facility use at least one of these dose optimization techniques: automated exposure control; mA and/or kV adjustment per patient size (includes targeted exams where dose is matched to clinical indication); or iterative reconstruction. COMPARISON: No relevant prior studies available. FINDINGS: Brain: Normal volume for age. No acute intracranial hemorrhage. No evidence of acute large vascular territory infarct. No edema. No midline shift or herniation. Cerebral ventricles: No ventriculomegaly. Paranasal sinuses: Imaged paranasal sinuses appropriately aerated without air-fluid levels. Mastoid air cells: No mastoid effusion. Orbital cavities: Status post bilateral lens replacement. Bones/joints: Unremarkable. No acute osseous finding. Soft tissues: No focal soft tissue abnormality. IMPRESSION: No acute intracranial finding. Dictated and Authenticated by: Brian Deutsch MD. Ordering:FERNANDO Lopez MD
[2024-01-13] MEDS: Ketorolac 15 MG/ML VIAL IVP (00:23)
[2024-01-13] MEDS: MORPHine 4 MG/ML SYR IVP (00:23)
[2024-01-13 00:49] VITALS: BP 212/101; PULSE 62; RESP 16; O2SAT 95
[2024-01-13 01:14] VITALS: BP 212/101; PULSE 70
[2024-01-13] MEDS: Labetalol 100 MG/20 ML VIAL 20 MG IVP (01:14)
[2024-01-13 01:47] VITALS: BP 177/96; PULSE 70; RESP 16; O2SAT 95
== END 2024-01-13 01:55 | disposition home or self-care (01) ==
PROVIDERS: Emergency Provider Student in an Organized Health Care Education/Training Program; PCP Nurse Practitioner Adult Health
DX: G43.909 Migraine, unspecified, not intractable, without status migrainosus (principal); I16.0 Hypertensive urgency; I10 Essential (primary) hypertension; E11.40 Type 2 diabetes mellitus with diabetic neuropathy, unspecified; F17.210 Nicotine dependence, cigarettes, uncomplicated; Z79.4 Long term (current) use of insulin; Z79.84 Long term (current) use of oral hypoglycemic drugs
CPT/HCPCS: 80053; 83690; 96361; 96365; 96375; 99284; 70450; 85025; J0131; J0780; J1200; J1885; J1920; J2270; J2919

== ENCOUNTER → 2024-01-20 04:26 | Outpatient (CLI) | payer OTHER, SELFPAY ==
--- NOTE | 2024-01-20 08:15 | DI.RAD_ITS ---
Exam(s) XR THORACIC SPINE COMPLETE EXAM: XR THORACIC SPINE COMPLETE CLINICAL HISTORY: evaluate thoraic spine; new pain/ache,muscle spasm of back,m62.830. TECHNIQUE: 2D digital imaging was performed. Three views. COMPARISON: CR XR CHEST 2V PA LATERAL from 07/16/2023 FINDINGS: The AP view is limited due to overlying soft tissues. BONES: There is no fracture or destructive lesion. The vertebral bodies and posterior elements are un remarkable. ALIGNMENT: Within normal limits. DISKS: Interverebral disc spaces are maintained. SOFT TISSUE: Visualized lungs are clear. IMPRESSION: Unremarkable radiographs of the thoracic spine. DATA REPOSITORY: RADIATION DOSE DELIVERED:
== END ==
PROVIDERS: PCP Nurse Practitioner Adult Health; Visit Provider Student in an Organized Health Care Education/Training Program
DX: M62.830 Muscle spasm of back (principal)
CPT/HCPCS: 72072

== ENCOUNTER 2024-02-05 17:13 | Emergency (ER) | payer OTHER, SELFPAY ==
[2024-02-05 17:17] VITALS: BP 132/90; PULSE 72; RESP 15; TEMP 36.7; O2SAT 97
[2024-02-05 17:21] VITALS: BP 132/90; PULSE 72; RESP 15; TEMP 36.7; O2SAT 97
--- NOTE | 2024-02-05 17:23 | W.ED.GENAD ---
Discharge Plan Disposition Patient Disposition: Home Condition: Stable Discharge Details Clinical Impression: Abdominal pain Primary Care Provider: Lorena Mann ED Provider: John Buenrostro Home Meds and New Rx's Prescriptions: Continued methadone 10 mg/mL concentrate 77 mg PO DAILY Patient Comments: 77 mg lorazepam 0.5 mg tablet 0.5 mg PO DAILY PRN lurasidone [Latuda] 40 mg tablet 120 mg PO DAILY Patient Comments: per larissa per pt report, 10/24/23, ik - maybe too much? but HAS helped - Rx Instructions: must administer with food (at least 350 calories) valacyclovir 500 mg tablet 500 mg PO DAILY Qty: 90 3RF Jardiance 25 mg tablet 25 mg PO DAILY AM Qty: 90 3RF Patient Comments: pt states not taking Rx Instructions: Administer once daily in the morning, with or without food albuterol sulfate [ProAir HFA] 90 mcg/actuation HFA aerosol inhaler 1 - 2 puff Inhalation Q4-6H PRN Qty: 1 1RF Rx Instructions: DISPENSE ALBUTEROL INHALER BRAND COVERED BY INSURANCE metoclopramide HCl 10 mg tablet 10 mg PO TID Rx Instructions: administer 30 minutes before meals ondansetron 4 mg tablet,disintegrating See Rx Instructions .ROUTE .COMPLEX Qty: 60 0RF Dose Instruction: DISSOLVE TWO TABLETS ON THE TONGUE TWICE A DAY NEEDED FOR FOR NAUSEA AND VOMITING Rx Instructions: DISSOLVE TWO TABLETS ON THE TONGUE TWICE A DAY NEEDED FOR FOR NAUSEA AND VOMITING promethazine 25 mg tablet 25 mg PO Q8H PRN PRN (Reason: nausea and vomiting/headache) Qty: 3 0RF pregabalin 200 mg capsule 200 mg PO TID Qty: 270 0RF dextroamphetamine-amphetamine [Adderall] 30 mg tablet 30 mg PO BID Rx Instructions: administer doses at least 4-6 hours apart alcohol swabs [Alcohol Pads] Pads, Medicated 1 pad Topical QID Qty: 400 3RF sumatriptan succinate 100 mg tablet 100 mg PO ONCE MDD 200 mg PRN (Reason: migraine headache) Qty: 30 2RF Rx Instructions: A second dose can be taken if no response after 2 hours hydroxyzine HCl 50 mg tablet 50 mg PO TID PRN Patient Comments: note dated 10/27/18 [facility] [place]y [place] [facility] 10 mg tablet 10 mg PO QHS Qty: 90 0RF acetaminophen 500 mg tablet 500 - 1,000 mg PO Q8H MDD 3000 mg PRN (Reason: fever or pain) Qty: 180 0RF Rx Instructions: 1 month supply (DME) pen needle, diabetic [BD Ultra-Fine Yamini Pen Needle] 32 gauge x 5/32 needle See Rx Instructions .ROUTE .COMPLEX Qty: 100 0RF Dose Instruction: USE TO ADMINISTER INSULIN ONCE DAILY Rx Instructions: USE TO ADMINISTER INSULIN ONCE DAILY Gvoke HypoPen 2-Pack 1 mg/0.2 mL auto-injector 1 mg subcut ONCE Qty: 0.4 1RF Rx Instructions: HYPOGLYCEMIA; as a single dose; may repeat once after 15 minutes if no response (DME) blood-glucose meter Misc See Rx Instructions .Route Qty: 1 0RF Rx Instructions: One Touch meter (DME) lancets Misc See Rx Instructions .ROUTE .MEDSUPPLY Qty: 400 3RF Rx Instructions: As directed to check blood glucose four times daily. On insulin. Dispense one touch ultra (DME) Blood Glucose Test Strip See Rx Instructions .MEDSUPPLY Qty: 400 3RF Rx Instructions: As directed to check blood glucose four times daily. On insulin. Dispense one touch ultra (DME) Dexcom G6 Transmitter Device See Rx Instructions .Route Qty: 3 3RF Rx Instructions: As directed celecoxib 200 mg capsule See Rx Instructions .ROUTE .COMPLEX Qty: 30 6RF Dose Instruction: TAKE 1 CAPSULE BY MOUTH TWICE DAILY(FOR BACK AND LEG PAIN, DO NOT MIX WITH OTHER NSAIDS) Rx Instructions: TAKE 1 CAPSULE BY MOUTH TWICE DAILY(FOR BACK AND LEG PAIN, DO NOT MIX WITH OTHER NSAIDS) nystatin 100,000 unit/gram powder 1 applic Topical BID PRN (Reason: fungal skin infection) Qty: 30 3RF Rx Instructions: Apply powder to affected area under R breast twice daily omeprazole 40 mg capsule,delayed release(DR/EC) 40 mg PO DAILY Qty: 90 0RF insulin aspart U-100 [Novolog FlexPen U-100 Insulin] 100 unit/mL (3 mL) insulin pen 15 unit subcut AC Qty: 15 3RF Rx Instructions: 10-15 units sliding scale before meals magnesium oxide 400 mg (241.3 mg magnesium) tablet 400 mg PO QHS Qty: 90 1RF (DME) Dexcom G6 Sensor Device See Rx Instructions .ROUTE .COMPLEX Qty: 3 0RF Dose Instruction: USE DIRECTED Rx Instructions: USE DIRECTED insulin degludec [Tresiba FlexTouch U-100] 100 unit/mL (3 mL) insulin pen See Rx Instructions .ROUTE .COMPLEX Qty: 240 0RF Dose Instruction: INJECT 130 UNITS UNDER THE SKIN ONCE DAILY Rx Instructions: INJECT 130 UNITS UNDER THE SKIN ONCE DAILY clonidine HCl 0.2 mg tablet 0.2 mg PO HS Patient Comments: TAKE 1 TABLET BY MOUTH EVERY NIGHT AT BEDTIME methocarbamol 500 mg tablet 500 mg PO TID Patient Comments: TAKE 1 TABLET BY MOUTH THREE TIMES DAILY divalproex 500 mg tablet extended release 24 hr 1,000 mg PO DAILY Patient Comments: TAKE 2 TABLETS BY MOUTH EVERY NIGHT AT BEDTIME FOR 5 DAYS FOR MIGRAINE LASTING LONGER THAN 72 HOURS lidocaine [Lidoderm] 5 % adhesive patch,medicated 1 patch topical DAILY Qty: 15 0RF Rx Instructions: leave on most painful area for up to 12 hrs diclofenac sodium 1 % gel 2 g topical QID Qty: 100 0RF Rx Instructions: apply to single elbow, wrist or hand; for hand includes palm/fingers/back of hand Discharge Instructions Instructions: Gastrointestinal Bleeding (ED), Abdominal Pain (ED) Additional Instructions: You were seen in the emergency department for your right-sided abdominal pain after eating with known gallbladder issues, referral pending to surgery in [place], I am placing you on our surgery follow-up list to, please call their office if you wish to follow-up, your hemoglobin is normal I do not suspect any significant source of GI bleeding at this time. You had recent ultrasound and CAT scan I do not feel a repeat scan is warranted at this time with reassuring labs. Please return for any severe increase in right-sided abdominal pain, fever, intractable nausea or vomiting, chest pain, black tarry stools or bright red blood filling the toilet bowl. Referrals: [facility] [Provider Group] Lorena Mann NP [Primary Care Provider] - Discharge Data Discharge Date/Time-TO BE ENTERED AT DEPARTURE: 02/05/24 19:16 HPI General Date/Time Provider Initiated Documentation: 02/05/24 17:22. HPI Narrative: 43 year-old female presents to ED today by POV/ambulating with her with a chief complaint of R sided abdominal pain with onset gradually over a long period, has been dealing with known gallbladder stones and post-prandial pain recently seen at [facility], recommended for outpatient surgery visit- now concerned with a small red streak of red in an otherwise normal stool. Quality described as R sided abdominal pain worse after eating, no radiation to fever, vomiting, chest pain, shortness of breath, cough, dysuria, flank pain, black/bloody stools, constipation, diarrhea. Severity is described as moderate. Palliating factors include nothing specific. Provoking factors include nothing specific. Events leading up to the incident/Associated Symptoms: Patient states she had ultrasounds and CT scans at recent visit- all without acute findings beyond known gallstones. Patient not anticoagulated. Related Data Home Medications Medication Instructions Recorded Confirmed hydroxyzine HCl 50 mg tablet 50 mg PO TID PRN 11/11/18 01/16/24 methadone 10 mg/mL oral concentrate 77 mg PO DAILY 02/12/19 01/16/24 atorvastatin 10 mg tablet 10 mg PO QHS #90 tabs 09/03/19 01/16/24 acetaminophen 500 mg tablet 500 - 1,000 mg (1 - 2 x 500 mg) PO 09/24/19 01/16/24 Q8H PRN fever or pain #180 tab-caps alcohol swabs (Alcohol Pads) 1 pad topical QID #400 ea 10/25/22 01/16/24 dextroamphetamine-amphetamine 30 30 mg PO BID 10/25/22 01/16/24 mg tablet (Adderall) lorazepam 0.5 mg tablet 0.5 mg PO DAILY PRN 03/13/23 01/16/24 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 03/13/23 01/16/24 #90 tab-caps albuterol sulfate 90 mcg/actuation 1 - 2 puff inhalation Q4-6H PRN ##1 06/20/23 01/16/24 aerosol inhaler (ProAir HFA) empagliflozin 25 mg tablet 25 mg PO DAILY AM #90 tab-caps 06/20/23 01/16/24 (Jardiance) pen needle, diabetic 32 gauge x #100 ea 06/30/23 01/16/24 (BD Ultra-Fine Yamini Pen Needle) metoclopramide HCl 10 mg tablet 10 mg PO TID 08/04/23 01/16/24 glucagon 1 mg/0.2 mL subcutaneous 1 mg (0.2 mL) subcut ONCE #0.4 mL 08/05/23 01/16/24 auto-injector (GvCrowdpark HypoPen 2-Pack) blood sugar diagnostic (Blood #400 ea 08/28/23 01/16/24 Glucose Test strips) blood-glucose meter #1 ea 08/28/23 01/16/24 lancets #400 ea 08/28/23 01/16/24 blood-glucose transmitter (Dexcom #3 ea 09/25/23 01/16/24 G6 Transmitter device) lurasidone 40 mg tablet (Latuda) 120 mg PO DAILY 10/24/23 01/16/24 sumatriptan succinate 100 mg tablet 100 mg PO ONCE PRN migraine 10/29/23 01/16/24 headache #30 tab-caps clonidine HCl 0.2 mg tablet 0.2 mg PO HS 11/21/23 01/16/24 celecoxib 200 mg capsule See Rx Instructions .Route 11/24/23 01/16/24 .COMPLEX #30 caps nystatin 100,000 unit/gram topical 1 applic topical BID PRN fungal 12/04/23 01/16/24 powder skin infection #30 grams omeprazole 40 mg capsule,delayed 40 mg PO DAILY #90 caps 12/15/23 01/16/24 release diclofenac sodium 1 % topical gel 2 g topical QID #100 grams 01/04/24 01/16/24 lidocaine 5 % topical patch 1 patch topical DAILY #15 ea 01/04/24 01/16/24 (Lidoderm) insulin aspart U-100 100 unit/mL 15 unit (0.15 mL) subcut AC #15 mL 01/05/24 01/16/24 (3 mL) subcutaneous pen (Novolog FlexPen U-100 Insulin aspart) divalproex 500 mg tablet,extended 1,000 mg PO DAILY 01/12/24 01/16/24 release 24 hr methocarbamol 500 mg tablet 500 mg PO TID 01/12/24 01/16/24 ondansetron 4 mg disintegrating See Rx Instructions .Route 01/13/24 01/16/24 tablet .COMPLEX #60 tabs promethazine 25 mg tablet 25 mg PO Q8H PRN PRN nausea and 01/13/24 01/16/24 vomiting/headache #3 tabs pregabalin 200 mg capsule 200 mg PO TID #270 tab-caps 01/16/24 01/16/24 magnesium oxide 400 mg (241.3 mg 400 mg PO QHS #90 tabs 01/30/24 magnesium) tablet blood-glucose sensor (Dexcom G6 #3 ea 02/04/24 Sensor device) insulin degludec 100 unit/mL (3 See Rx Instructions .Route 02/05/24 mL) subcutaneous pen (Tresiba .COMPLEX #240 mL FlexTouch U-100 insulin) Previous Rx's Medication Instructions Recorded atorvastatin 10 mg tablet 10 mg PO QHS #90 tabs 09/03/19 acetaminophen 500 mg tablet 500 - 1,000 mg (1 - 2 x 500 mg) PO 09/24/19 Q8H PRN fever or pain #180 tab-caps alcohol swabs (Alcohol Pads) 1 pad topical QID #400 ea 10/25/22 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 03/13/23 #90 tab-caps albuterol sulfate 90 mcg/actuation 1 - 2 puff inhalation Q4-6H PRN ##1 06/20/23 aerosol inhaler (ProAir HFA) empagliflozin 25 mg tablet 25 mg PO DAILY AM #90 tab-caps 06/20/23 (Jardiance) pen needle, diabetic 32 gauge x #100 ea 06/30/23 (BD Ultra-Fine Yamini Pen Needle) glucagon 1 mg/0.2 mL subcutaneous 1 mg (0.2 mL) subcut ONCE #0.4 mL 08/05/23 auto-injector (GvCrowdpark HypoPen 2-Pack) blood sugar diagnostic (Blood #400 ea 08/28/23 Glucose Test strips) blood-glucose meter #1 ea 08/28/23 lancets #400 ea 08/28/23 blood-glucose transmitter (Dexcom #3 ea 09/25/23 G6 Transmitter device) sumatriptan succinate 100 mg tablet 100 mg PO ONCE PRN migraine 10/29/23 headache #30 tab-caps celecoxib 200 mg capsule See Rx Instructions .Route 11/24/23 .COMPLEX #30 caps nystatin 100,000 unit/gram topical 1 applic topical BID PRN fungal 12/04/23 powder skin infection #30 grams omeprazole 40 mg capsule,delayed 40 mg PO DAILY #90 caps 12/15/23 release diclofenac sodium 1 % topical gel 2 g topical QID #100 grams 01/04/24 lidocaine 5 % topical patch 1 patch topical DAILY #15 ea 01/04/24 (Lidoderm) insulin aspart U-100 100 unit/mL 15 unit (0.15 mL) subcut AC #15 mL 01/05/24 (3 mL) subcutaneous pen (Novolog FlexPen U-100 Insulin aspart) ondansetron 4 mg disintegrating See Rx Instructions .Route 01/13/24 tablet .COMPLEX #60 tabs promethazine 25 mg tablet 25 mg PO Q8H PRN PRN nausea and 01/13/24 vomiting/headache #3 tabs pregabalin 200 mg capsule 200 mg PO TID #270 tab-caps 01/16/24 magnesium oxide 400 mg (241.3 mg 400 mg PO QHS #90 tabs 01/30/24 magnesium) tablet blood-glucose sensor (Dexcom G6 #3 ea 02/04/24 Sensor device) insulin degludec 100 unit/mL (3 See Rx Instructions .Route 02/05/24 mL) subcutaneous pen (Tresiba .COMPLEX #240 mL FlexTouch U-100 insulin) Allergies Allergy/AdvReac Type Severity Reaction Status Date / Time Penicillins Allergy Severe lip and Verified 01/16/24 14:49 facial swelling lamotrigine [From Lamictal] Allergy Unknown Skin Rash Verified 01/16/24 14:49 clindamycin AdvReac Severe Nausea & Verified 01/16/24 14:49 vomiting aspirin AdvReac Intermediate nausea/pain Verified 01/16/24 14:49 General Stated Complaint: Abd Prob CARLOS: 3 Review of Systems All systems reviewed & are unremarkable except as noted in HPI and below Exam Narrative Exam Narrative: GENERAL APPEARANCE: Well-nourished, non-toxic, awake and alert, atraumatic, no acute distress. SKIN: Warm, pink, dry, intact, without rashes/lesions/ulcerations. HEAD: Normocephalic, atraumatic, normal hair distribution for gender/age. EYES: Pupils PERRLA, EOMs intact without nystagmus, normal conjunctiva, no exudates on lids/lashes. ENT: Nares patent, no circumoral cyanosis, no facial swelling NECK: Supple, trachea midline, painless cervical ROM. LUNGS/CHEST: Lungs CTA bilaterally- no rhonchi/rales/wheezes diffusely, non-labored respirations, normal A/P diameter, symmetrical expansion, no chest wall deformity HEART (CV/PV): Regular rate and rhythm without murmur, no peripheral edema, no JVD. ABDOMEN: Soft, non-distended, no guarding, RUQ tenderness without Husain's sign, no Rovsing's. MSK: Normal ROM, no swelling/deformity to bilateral UEs or LEs, moving all extremities without weakness, no cyanosis, spine midline without tenderness, normal curvature. NEURO: Mental Status AAOx4 - alert to person, place, time, events No facial droop, no forehead involvement. Motor: No focal weakness - strength 5/5 in bilateral UEs and LEs, proximal and distal, symmetric. Sensory: sensation intact to light touch globally. Gait normal: patient ambulated without ataxia into ED room. PSYCH: dysthymic, cooperative, pleasant, appropriate speech Course Vital Signs Vital signs: Vital Signs Temperature 36.7 C 02/05/24 17:17 Pulse 72 02/05/24 17:17 Respiratory Rate 15 02/05/24 17:17 Blood Pressure 132/90 02/05/24 17:17 Pulse Oximetry 97 02/05/24 17:17 Temperature 36.7 C 02/05/24 17:17 Temperature Source Temporal Artery Scan 02/05/24 17:17 Pulse 72 02/05/24 17:17 Respiratory Rate 15 02/05/24 17:17 Blood Pressure 132/90 02/05/24 17:17 Blood Pressure Position Sitting 02/05/24 17:17 Pulse Oximetry 97 02/05/24 17:17 Oxygen Delivery Method Room Air 02/05/24 17:17 Oxygen Flow Rate 0 02/05/24 17:17 Pain Level 6 02/05/24 17:17 Medical Decision Making This dictation utilizes [id number] dictation software and may contain unedited grammatical errors. 43 y/o F presents to ED today with a chief complaint of R sided abdominal pain post-prandially with known gallstones, recently seen at [facility] without need for urgent procedure. Patient states no vomiting, not having any fevers, denies diarrhea/constipation, denies black/bloody stools. Patient wishes to follow with surgery here at [facility], requesting some pain control. Patients' medical history: Cirrhosis of liver, diabetic neuropathy, obesity, T2DM, opioid use disorder, chronic constipation, gastroparesis. Family and social history: Noncontributory. Pertinent exam findings / vital signs include R sided abdominal pain without peritoneal signs, nontoxic vitals, benign cardiopulmonary status. Differential / pathologies of concern include cholecystitis, cholelithiasis, gastritis, ascites, not SBO. Diagnostic studies of: -CBC, BMP, LFT, Lipase, UA, Trop I, Magnesium, lactate, procalcitonin -CBC benign, no leukocytosis, no anemia -BMP benign -LFTs wnl -Magnesium wnl -Lipase wnl -UA benign -Trop I negative -lactate/procal negative -with normal labs and recent negative imaging discussed risk/benefit, will recommend outpatient gen surg work-up with strict return criteria for imaging Interventions of: -Toradol, zofran, IVF. ED Course/Assessment/Plan: 43-year-old female presents with continued right upper quadrant abdominal pain that is worse postprandial. She was recently seen at [facility] with negative imaging, wishes to follow-up with general surgery here on an outpatient basis, I discussed performing labs before imaging decision with her recent ultrasound and CT scan being benign. Patient agreed with this plan, labs are reassuring for no pancreatitis, no cholangitis, no sepsis, likely gallstones without cholecystitis. Patient was requesting pain control and was given Toradol as well as Zofran and some Toradol to go. Will place on referral list for general surgery for possible evaluation of elective cholecystectomy. Strict return criteria for intractable nausea or vomiting, fever, worsening abdominal pain. Findings not consistent with cholangiitis, cholecystitis, sepsis, sbo, acute emergent abdominal pathology. Disposition of Abdominal Pain. Patient verbalized understanding of the plan and return to ED criteria and engaged in shared decision making. Medical Records Medical records reviewed: Yes I reviewed the patient's medical records. Lab Data Lab results reviewed: Yes I reviewed the patient's lab results. Labs: Laboratory Tests Range/Units 02/05/24 02/05/24 02/05/24 17:50 17:50 17:50 WBC (4.4-10.8) 10^3/uL 9.02 RBC (3.93-5.22) 10^6/uL 5.18 Hgb (11.2-15.7) g/dL 14.3 Hct (36.0-46.0) % 43.7 MCV (80-95) fL 84 MCH (27.0-33.0) pg 27.6 MCHC (32.0-36.0) % 32.7 RDW (11.7-14.6) % 13.8 Plt Count (130-400) 10^3/uL 172 MPV (8.0-11.0) fL 11.6 H Immature Gran % % 0.6 Neutrophils % % 63.7 Lymphocytes % % 27.8 Monocytes % % 6.3 Eosinophils % % 1.0 Basophils % % 0.6 Nucleated RBC % (0.0-0.3) % 0.0 Absolute Neutrophils (1.2-6.7) 10^3/uL 5.75 Absolute Lymphocytes (1.2-3.4) 10^3/uL 2.51 Absolute Monocytes (0.1-0.8) 10^3/uL 0.57 Absolute Eosinophils (0.0-0.7) 10^3/uL 0.09 Absolute Basophils (0.0-0.2) 10^3/uL 0.05 Sodium (136-145) mmol/L 136 Potassium (3.5-5.1) mmol/L 4.8 Chloride (98-107) mmol/L 101 Carbon Dioxide (21.0-32.0) mmol/L 30.3 Anion Gap (3-11) mmol/L 4.7 BUN (7-18) mg/dL 19 H Creatinine (0.55-1.02) mg/dL 0.9 Est GFR (CKD-EPI 2020) (mL/min/1.73m2) 80.34 Glucose (74-106) mg/dL 292 H Calcium (8.5-10.1) mg/dL 9.4 Magnesium (1.8-2.4) mg/dL 1.7 L Total Bilirubin (0.2-1.0) mg/dL 0.2 Cancelled Conjugated Bilirubin (0.0-0.2) mg/dL 0.1 AST (15-37) U/L 20 Cancelled ALT (14-59) U/L 27 Alkaline Phosphatase (46-116) U/L Troponin I (< or =60) ng/L Total Protein (6.4-8.2) g/dL Albumin (3.4-5.0) g/dL Lipase (16-77) U/L Procalcitonin ng/mL Urine Color (Yellow) Urine Clarity (Clear) Urine pH (5-8) Ur Specific [place] (1.005-1.025) Urine Protein (Neg-Trace) mg/dL Urine Ketones (Negative) mg/dL Urine Blood (Negative) Urine Nitrite (Negative) Urine Bilirubin (Negative) Urine Urobilinogen (Up to 0.2) mg/dL Ur Leukocyte Esterase (Negative) Urine Glucose (Negative) mg/dL Range/Units 02/05/24 02/05/24 02/05/24 17:50 17:50 17:50 WBC (4.4-10.8) 10^3/uL RBC (3.93-5.22) 10^6/uL Hgb (11.2-15.7) g/dL Hct (36.0-46.0) % MCV (80-95) fL MCH (27.0-33.0) pg MCHC (32.0-36.0) % RDW (11.7-14.6) % Plt Count (130-400) 10^3/uL MPV (8.0-11.0) fL Immature Gran % % Neutrophils % % Lymphocytes % % Monocytes % % Eosinophils % % Basophils % % Nucleated RBC % (0.0-0.3) % Absolute Neutrophils (1.2-6.7) 10^3/uL Absolute Lymphocytes (1.2-3.4) 10^3/uL Absolute Monocytes (0.1-0.8) 10^3/uL Absolute Eosinophils (0.0-0.7) 10^3/uL Absolute Basophils (0.0-0.2) 10^3/uL Sodium (136-145) mmol/L Potassium (3.5-5.1) mmol/L Chloride (98-107) mmol/L Carbon Dioxide (21.0-32.0) mmol/L Anion Gap (3-11) mmol/L BUN (7-18) mg/dL Creatinine (0.55-1.02) mg/dL Est GFR (CKD-EPI 2020) (mL/min/1.73m2) Glucose (74-106) mg/dL Calcium (8.5-10.1) mg/dL Magnesium (1.8-2.4) mg/dL Total Bilirubin (0.2-1.0) mg/dL Conjugated Bilirubin (0.0-0.2) mg/dL AST (15-37) U/L ALT (14-59) U/L Cancelled Alkaline Phosphatase (46-116) U/L 141 H Cancelled Troponin I (< or =60) ng/L < 50 Total Protein (6.4-8.2) g/dL 7.5 Cancelled Albumin (3.4-5.0) g/dL 3.3 L Lipase (16-77) U/L Procalcitonin ng/mL Urine Color (Yellow) Urine Clarity (Clear) Urine pH (5-8) Ur Specific [place] (1.005-1.025) Urine Protein (Neg-Trace) mg/dL Urine Ketones (Negative) mg/dL Urine Blood (Negative) Urine Nitrite (Negative) Urine Bilirubin (Negative) Urine Urobilinogen (Up to 0.2) mg/dL Ur Leukocyte Esterase (Negative) Urine Glucose (Negative) mg/dL Range/Units 02/05/24 02/05/24 17:50 18:05 WBC (4.4-10.8) 10^3/uL RBC (3.93-5.22) 10^6/uL Hgb (11.2-15.7) g/dL Hct (36.0-46.0) % MCV (80-95) fL MCH (27.0-33.0) pg MCHC (32.0-36.0) % RDW (11.7-14.6) % Plt Count (130-400) 10^3/uL MPV (8.0-11.0) fL Immature Gran % % Neutrophils % % Lymphocytes % % Monocytes % % Eosinophils % % Basophils % % Nucleated RBC % (0.0-0.3) % Absolute Neutrophils (1.2-6.7) 10^3/uL Absolute Lymphocytes (1.2-3.4) 10^3/uL Absolute Monocytes (0.1-0.8) 10^3/uL Absolute Eosinophils (0.0-0.7) 10^3/uL Absolute Basophils (0.0-0.2) 10^3/uL Sodium (136-145) mmol/L Potassium (3.5-5.1) mmol/L Chloride (98-107) mmol/L Carbon Dioxide (21.0-32.0) mmol/L Anion Gap (3-11) mmol/L BUN (7-18) mg/dL Creatinine (0.55-1.02) mg/dL Est GFR (CKD-EPI 2020) (mL/min/1.73m2) Glucose (74-106) mg/dL Calcium (8.5-10.1) mg/dL Magnesium (1.8-2.4) mg/dL Total Bilirubin (0.2-1.0) mg/dL Conjugated Bilirubin (0.0-0.2) mg/dL AST (15-37) U/L ALT (14-59) U/L Alkaline Phosphatase (46-116) U/L Troponin I (< or =60) ng/L Total Protein (6.4-8.2) g/dL Albumin (3.4-5.0) g/dL Cancelled Lipase (16-77) U/L 31 Procalcitonin ng/mL < 0.1 Urine Color (Yellow) Yellow Urine Clarity (Clear) Clear Urine pH (5-8) 6.0 Ur Specific [place] (1.005-1.025) >= 1.030 H Urine Protein (Neg-Trace) mg/dL Negative Urine Ketones (Negative) mg/dL Negative Urine Blood (Negative) Negative Urine Nitrite (Negative) Negative Urine Bilirubin (Negative) Negative Urine Urobilinogen (Up to 0.2) mg/dL 0.2 Ur Leukocyte Esterase (Negative) Negative Urine Glucose (Negative) mg/dL 500 H Quality:SDOH Health Related Social Needs: No Data to Display PFSH All Active Problems (Updated 02/05/24 @ 19:02 by ALTA Waggoner) Abdominal pain (Acute) Hypertensive urgency (Acute) Headache, migraine (Chronic) Migraine (Chronic) Obstructive sleep apnea of adult (Acute) [facility] 12/23/23 Muscle spasm of left lower extremity (Acute) Muscle spasm of back (Acute) Diabetic cataract of right eye (Acute) Ulcer of right foot limited to breakdown of skin (Acute 04/16/23) [facility] Ulcer of left foot, limited to breakdown of skin (Acute 04/16/23) [facility] Iron deficiency (Acute) 03/2023 iron studies indicating deficiency (NOT anemic) Migraine (Chronic) [facility] Chronic constipation (Chronic) [facility] Opioid use disorder (Chronic) MAT with methadone Type 2 diabetes mellitus, with long-term current use of insulin (Chronic) With neuropathy & retinopathy (left, mild) Obesity (Chronic) Cirrhosis of liver (Chronic) Asthma (Chronic) Tobacco use disorder (Chronic) Started smoking age 9 Slow transit constipation (Chronic) [facility] 03/17/18 Poorly controlled type 2 diabetes mellitus (Chronic 03/23/18) Polypharmacy (Chronic 12/14/15) Mild nonproliferative diabetic retinopathy associated with type 2 diabetes mellitus (Chronic 01/22/16) Mental health disorder (Chronic) Pt reports being diagnosed with bipolar disorder, disassociative disorder, anxiety, & multiple personality disorder Hypomagnesemia (Chronic 09/30/16) Hyperlipidemia (Chronic 09/30/16) 10-year ASCVD risk = unable to calculate due to not being age 40+ however dx T2DM, so Rx for statin 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 Jimenez [facility] Dyspareunia in female (Chronic 07/09/17) Depressive disorder (Chronic 10/31/14) ADMISSION SUICIDAL THOUGHTS 06/13/14 OD ATTEMPTS IN PAST Chronic nausea (Chronic) EGD 04/16/16 Dr. Ferrer; multifactoral: gastroparesis, constipation, hyperglycemia, methadone Chronic fatigue (Chronic 07/19/15) Atrophic vaginitis (Chronic 07/09/17) Medical History Punctate keratitis of both eyes Ulcer of foot due to secondary diabetes Umbilical hernia (03/11/18) 03/17/2018: [facility] Premature surgical menopause JAD/BSO in late 20s, no HRT Hepatitis C 02/14/2016 labwork: undetectable RNA level Surgical History Status post total hysterectomy and bilateral salpingo-oophorectomy (~2006) noncancerous reasons Status post left foot surgery (10/2022) Left fourth metatarsal head excision for chronic ulcer, osteomyelitis ([facility]/Tamia Vidales DPM) Status post section (~2003) EGD (04/16/16) Dr. Ferrer Family History Mother , 46yo due to kidney & liver failure due to alcohol Substance use disorder Alcohol use disorder Father , 62yo from ALS Substance use disorder Alcohol use disorder ALS (amyotrophic lateral sclerosis) Grandmother Colon cancer Paternal Paternal Uncle Cardiac arrest Substance use disorder Alcohol and Pain Medication Abuse Social History Smoking/Tobacco Use Status: Current every day Tobacco Type: cigarettes Smoking packs per day: 1 Smoking cigarettes per day: 20.0 Tobacco: How many years used: 33 Quit status: considering quitting Smoking risk assessment performed?: Yes Alcohol Intake: never Drug use: Occasionally Substance use type: former substance user and marijuana Details: Pt. 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 Pets and animals: Yes (1 dog, 4 cats) Pets and animals: cat(s) and dog(s) Sexually active: Yes Do you think of yourself as: straight/heterosexual Current gender identity: female Other: 09/2022: pt reports she is engaged What is your relationship status?: How often do you talk on the phone with friends or family?: three or more times per week How often do you get together with friends or relatives?: once per week How often do you attend bahai or nondenominational services?: decline to answer Do you belong to any clubs or organized social groups?: no Panel score (0-1 are the most socially isolated patients): 2 What type of physical activity do you participate in: none Duration: decline to answer Frequency: decline to answer Seatbelt use: always Helmet use: No (No reason to wear one) 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
[2024-02-05] MEDS: Normal Saline 1,000 ML 1000 ML IV (17:55)
[2024-02-05] MEDS: Ketorolac 15 MG/ML VIAL IVP (17:55)
[2024-02-05] MEDS: Ondansetron 4 MG/2 ML VIAL IVP (17:55)
[2024-02-05 18:03] LABS: Abs Immature Grans 0.05 10^3/uL (0.0-0.06); Absolute Basophil Count 0.05 10^3/uL (0.0-0.2); Absolute Eosinophil Count 0.09 10^3/uL (0.0-0.7); Absolute Lymphocyte Count 2.51 10^3/uL (1.2-3.4); Absolute Monocyte Count 0.57 10^3/uL (0.1-0.8); Absolute Neutrophil Count 5.75 10^3/uL (1.2-6.7); Basophils % 0.6 %; HCT 43.7 % (36.0-46.0); HGB 14.3 g/dL (11.2-15.7); Immature Grans % 0.6 %; Lymphocytes % 27.8 %; MCH 27.6 pg (27.0-33.0); MCHC 32.7 % (32.0-36.0); MCV 84 fL (80-95); MPV 11.6 fL (8.0-11.0); Monocytes % 6.3 %; Neutrophils % 63.7 %; Platelet Count 172 10^3/uL (130-400); RBC 5.18 10^6/uL (3.93-5.22); RDW 13.8 % (11.7-14.6); RDW-SD 42.7 fL; WBC 9.02 10^3/uL (4.4-10.8)
[2024-02-05 18:17] LABS: Bilirubin Negative (Negative); Blood Negative (Negative); Clarity Clear (Clear); Glucose 500 mg/dL (Negative); Ketones Negative (Negative); Leukocyte Esterase Negative (Negative); Nitrite Negative (Negative); Specific Gravity >= 1.030 (1.005-1.025); Urobilinogen 0.2 mg/dL (Up to 0.2)
[2024-02-05 18:21] LABS: Bilirubin, Direct 0.1 mg/dL (0.0-0.2); Magnesium 1.7 mg/dL (1.8-2.4)
[2024-02-05 18:22] LABS: ALT 27 U/L (14-59); AST 20 U/L (15-37); Albumin 3.3 g/dL (3.4-5.0); Alkaline Phosphatase 141 U/L (46-116); Anion Gap 4.7 mmol/L (3-11); BUN 19 mg/dL (7-18); Bilirubin, Total 0.2 mg/dL (0.2-1.0); CO2 30.3 mmol/L (21.0-32.0); CREATININE 0.9 mg/dL (0.55-1.02); Calcium 9.4 mg/dL (8.5-10.1); Chloride 101 mmol/L (98-107); Estimated GFR 80.34 (mL/min/1.73m2); Glucose 292 mg/dL (74-106); Lipase 31 U/L (16-77); Potassium 4.8 mmol/L (3.5-5.1); Sodium 136 mmol/L (136-145); Total Protein 7.5 g/dL (6.4-8.2)
[2024-02-05 18:38] LABS: Procalcitonin < 0.1 ng/mL
[2024-02-05 18:43] LABS: Troponin I < 50 ng/L (< or =60)
--- NOTE | 2024-02-05 19:15 | NUR.NOTE ---
Nursing Note: pt requested to leave, states she was here for the blood she noted with BM today but feels better. Pain reduced with IV toradol.
[2024-02-05 19:16] VITALS: BP 132/90; PULSE 72; RESP 15; TEMP 36.7; O2SAT 97
--- NOTE | 2024-02-07 12:16 | NUR.NOTE ---
Referral faxed to [facility] for a Gall Bladder Eval, non-emergent.
== END 2024-02-05 19:16 | disposition home or self-care (01) ==
PROVIDERS: Emergency Provider Physician Assistant; PCP Nurse Practitioner Adult Health
DX: R10.11 Right upper quadrant pain (principal); R19.5 Other fecal abnormalities
CPT/HCPCS: 36415; 80053; 80076; 83690; 84145; 96361; 96374; 96375; 99284; 81003; 82248; 83735; 84484; 85025; 99283; J1885; J2405

== ENCOUNTER 2024-03-06 20:42 | Emergency (ER) | payer OTHER, SELFPAY ==
[2024-03-06 20:52] VITALS: BP 153/95; PULSE 91; RESP 16; TEMP 37.1; O2SAT 96
--- NOTE | 2024-03-06 21:00 | DI.RAD_ITS ---
Exam(s) XR HAND LT LIMITED XR WRIST LT COMPLETE EXAM: XR HAND LT LIMITED and XR wrist LT CLINICAL HISTORY: Fall, Hand pain. TECHNIQUE: 2D digital imaging was performed of the left wrist and hand. Five views were obtained. AP, lateral and oblique views were obtained. COMPARISON: CR LEFT INDEX FINGER from 06/11/2016 FINDINGS: BONES: There is an oblique lucency in the middle phalanx of the left 5th finger. This was not presen t on the prior examination from 2016. Nondisplaced fracture should be considered. Please correlate with patient's site of pain. No bony destructive lesion is seen. JOINTS: No dislocation present. SOFT TISSUE: Normal. IMPRESSION: 1. Question of a nondisplaced fracture involving the middle phalanx of the left little finger. 2. No other acute fracture or dislocation is identified. DATA REPOSITORY: RADIATION DOSE DELIVERED:
--- NOTE | 2024-03-06 21:00 | DI.RAD_ITS ---
Exam(s) XR ELBOW LT COMPLETE EXAM: XR ELBOW LT COMPLETE CLINICAL HISTORY: Fall. TECHNIQUE: 2D digital imaging was performed of the left elbow. Three images were obtained. AP, lat eral and oblique views were obtained. COMPARISON: CR RIGHT ELBOW COMPLETE from 04/20/2015 FINDINGS: BONES: No acute fracture is present. No bony destructive lesion is seen. JOINTS: The elbow is normally aligned. No joint effusion is seen. SOFT TISSUE: Calcification of the tendinous insertion of the triceps on the olecranon suggesting calc ific tendinitis. IMPRESSION: No acute fracture or dislocation. DATA REPOSITORY: RADIATION DOSE DELIVERED:
--- NOTE | 2024-03-06 21:15 | DI.RAD_ITS ---
Exam(s) XR KNEE LT 3V AP,LAT,EMILY EXAM: XR KNEE LT 3V AP,LAT,EMILY CLINICAL HISTORY: Fall, Knee pain. TECHNIQUE: 2D digital imaging was performed of the left knee. Three images were obtained. AP, late ral and PA tunnel views were obtained. COMPARISON: No exams were available for comparison FINDINGS: BONES: No acute fracture is present. No bony destructive lesion is seen. JOINTS: There is moderate narrowing of the medial femoral tibial joint. There is a small joint effus ion. No loose body. SOFT TISSUE: Normal. IMPRESSION: No acute fracture or dislocation. DATA REPOSITORY: RADIATION DOSE DELIVERED:
--- NOTE | 2024-03-06 21:17 | W.ED.GENAD ---
Discharge Plan Disposition Patient Disposition: Home Condition: Stable Discharge Details Clinical Impression: Sprain of left knee, Closed fracture of phalanx of left little finger, Fall, Sprain of left wrist Primary Care Provider: Lorena Mann ED Provider: Sandrita Gautam Home Meds and New Rx's Prescriptions: Continued methadone 10 mg/mL concentrate 77 mg PO DAILY Patient Comments: 77 mg lorazepam 0.5 mg tablet 0.5 mg PO DAILY PRN lurasidone [Latuda] 40 mg tablet 120 mg PO DAILY Patient Comments: per larissa per pt report, 10/24/23, ik - maybe too much? but HAS helped - Rx Instructions: must administer with food (at least 350 calories) valacyclovir 500 mg tablet 500 mg PO DAILY Qty: 90 3RF Jardiance 25 mg tablet 25 mg PO DAILY AM Qty: 90 3RF Patient Comments: pt states not taking Rx Instructions: Administer once daily in the morning, with or without food albuterol sulfate [ProAir HFA] 90 mcg/actuation HFA aerosol inhaler 1 - 2 puff Inhalation Q4-6H PRN Qty: 1 1RF Rx Instructions: DISPENSE ALBUTEROL INHALER BRAND COVERED BY INSURANCE metoclopramide HCl 10 mg tablet 10 mg PO TID Rx Instructions: administer 30 minutes before meals promethazine 25 mg tablet 25 mg PO Q8H PRN PRN (Reason: nausea and vomiting/headache) Qty: 3 0RF pregabalin 200 mg capsule 200 mg PO TID Qty: 270 0RF dextroamphetamine-amphetamine [Adderall] 30 mg tablet 30 mg PO BID Rx Instructions: administer doses at least 4-6 hours apart alcohol swabs [Alcohol Pads] Pads, Medicated 1 pad Topical QID Qty: 400 3RF naloxone [Narcan] 4 mg/actuation spray,non-aerosol 4 mg intranasal Q2M PRN (Reason: opioid overdose) Qty: 2 0RF Rx Instructions: spray 1 dose into ONE nostril; alternate nostrils w each dose until help arrives hydroxyzine HCl 50 mg tablet 50 mg PO TID PRN Patient Comments: note dated 10/27/18 [facility] [place]udy [place] [facility] [place] 10 mg tablet 10 mg PO QHS Qty: 90 0RF acetaminophen 500 mg tablet 500 - 1,000 mg PO Q8H MDD 3000 mg PRN (Reason: fever or pain) Qty: 180 0RF Rx Instructions: 1 month supply (DME) pen needle, diabetic [BD Ultra-Fine Yamini Pen Needle] 32 gauge x 5/32 needle See Rx Instructions .ROUTE .COMPLEX Qty: 100 0RF Dose Instruction: USE TO ADMINISTER INSULIN ONCE DAILY Rx Instructions: USE TO ADMINISTER INSULIN ONCE DAILY (DME) blood-glucose meter Misc See Rx Instructions .Route Qty: 1 0RF Rx Instructions: One Touch meter (DME) lancets Misc See Rx Instructions .ROUTE .MEDSUPPLY Qty: 400 3RF Rx Instructions: As directed to check blood glucose four times daily. On insulin. Dispense one touch ultra (DME) Blood Glucose Test Strip See Rx Instructions .MEDSUPPLY Qty: 400 3RF Rx Instructions: As directed to check blood glucose four times daily. On insulin. Dispense one touch ultra (DME) Dexcom G6 Transmitter Device See Rx Instructions .Route Qty: 3 3RF Rx Instructions: As directed celecoxib 200 mg capsule See Rx Instructions .ROUTE .COMPLEX Qty: 30 6RF Dose Instruction: TAKE 1 CAPSULE BY MOUTH TWICE DAILY(FOR BACK AND LEG PAIN, DO NOT MIX WITH OTHER NSAIDS) Rx Instructions: TAKE 1 CAPSULE BY MOUTH TWICE DAILY(FOR BACK AND LEG PAIN, DO NOT MIX WITH OTHER NSAIDS) nystatin 100,000 unit/gram powder 1 applic Topical BID PRN (Reason: fungal skin infection) Qty: 30 3RF Rx Instructions: Apply powder to affected area under R breast twice daily omeprazole 40 mg capsule,delayed release(DR/EC) 40 mg PO DAILY Qty: 90 0RF insulin aspart U-100 [Novolog FlexPen U-100 Insulin] 100 unit/mL (3 mL) insulin pen 15 unit subcut AC Qty: 15 3RF Rx Instructions: 10-15 units sliding scale before meals magnesium oxide 400 mg (241.3 mg magnesium) tablet 400 mg PO QHS Qty: 90 1RF insulin degludec [Tresiba FlexTouch U-100] 100 unit/mL (3 mL) insulin pen See Rx Instructions .ROUTE .COMPLEX Qty: 240 0RF Dose Instruction: INJECT 130 UNITS UNDER THE SKIN ONCE DAILY Rx Instructions: INJECT 130 UNITS UNDER THE SKIN ONCE DAILY cefpodoxime 200 mg tablet 200 mg PO Q12H Rx Instructions: must administer with a meal/food doxycycline hyclate 100 mg tablet 100 mg PO BID sumatriptan succinate 100 mg tablet 100 mg PO ONCE MDD 200 mg PRN (Reason: migraine headache) Qty: 30 2RF Rx Instructions: A second dose can be taken if no response after 2 hours ondansetron 4 mg tablet,disintegrating See Rx Instructions .ROUTE .COMPLEX Qty: 60 0RF Dose Instruction: DISSOLVE TWO TABLETS ON THE TONGUE TWICE A DAY NEEDED FOR FOR NAUSEA AND VOMITING Rx Instructions: DISSOLVE TWO TABLETS ON THE TONGUE TWICE A DAY NEEDED FOR FOR NAUSEA AND VOMITING Gvoke HypoPen 2-Pack 1 mg/0.2 mL auto-injector 1 mg subcut ONCE Qty: 0.4 1RF Rx Instructions: HYPOGLYCEMIA; as a single dose; may repeat once after 15 minutes if no response (DME) Dexcom G6 Sensor Device See Rx Instructions .ROUTE .COMPLEX Qty: 3 6RF Dose Instruction: USE DIRECTED Rx Instructions: USE DIRECTED insulin degludec [Tresiba FlexTouch U-100] 100 unit/mL (3 mL) insulin pen 140 unit subcut DAILY Rx Instructions: 03/05/24--decr by 10U per Dr Foster- clonidine HCl 0.2 mg tablet 0.2 mg PO HS Patient Comments: TAKE 1 TABLET BY MOUTH EVERY NIGHT AT BEDTIME divalproex 500 mg tablet extended release 24 hr 1,000 mg PO DAILY Patient Comments: TAKE 2 TABLETS BY MOUTH EVERY NIGHT AT BEDTIME FOR 5 DAYS FOR MIGRAINE LASTING LONGER THAN 72 HOURS methocarbamol 500 mg tablet 500 mg PO TID Qty: 15 0RF lidocaine [Lidoderm] 5 % adhesive patch,medicated 1 patch topical DAILY Qty: 15 0RF Rx Instructions: leave on most painful area for up to 12 hrs diclofenac sodium 1 % gel 2 g topical QID Qty: 100 0RF Rx Instructions: apply to single elbow, wrist or hand; for hand includes palm/fingers/back of hand Discharge Instructions Instructions: Finger Fracture ED, Wrist Sprain ED, Knee Sprain ED Additional Instructions: A refill for the methocarbamol muscle relaxer was sent to the pharmacy on file. Please continue to take the medications that you have previously been prescribed. Alternate ice and heat. Wear the wrist splint as needed. Also the Eliceo wrap. Lexx tape your finger. Follow up with primary care provider in 3-5 days. Return to ED sooner if any worsening or concerns. You were given an anti-inflammatory and a muscle relaxer while here in the department today. Rest ice compression elevation. Apply ice to the area 3 times a day for no longer than 20 minutes at a time. If any further concerns you may follow-up with orthopedics if needed. Referrals: Scott Denis PA [PHYSICIANS TRAVEL AGENT] - 2 weeks (If needed for finger fracture or knee sprain) Lorena Mann OIL EXPELLER [Primary Care Provider] - 5 days (ER follow-up) HPI General Mode of arrival: ambulatory. Date/Time Provider Initiated Documentation: 03/06/24 21:06. Limitations to Documentation: no limitations. Information obtained by: patient, RN notes reviewed and old records reviewed. HPI Narrative: 43-year-old female presents to the ER with a chief complaint of fall around 10 this morning, tripped over 3 feet garden fence and landed on her left side. FOOSH type injury. She does report that her left hand wrist and left side of her body are hurting. She does have some swelling noted to her distal radius and pain in her hand. She she is able to flex and extend her left elbow, she is also states that her left knee gave out after the fall while walking up some stairs. She did not not hit her head denies any loss of consciousness denies any neck or back pain. She did take naproxen around noon today and Tylenol which helped somewhat. She is requesting Toradol injection and muscle relaxer. Past medical history includes hepatitis C, hernia, obesity, bipolar, diabetes, she does take methadone, high cholesterol Related Data Home Medications Medication Instructions Recorded Confirmed hydroxyzine HCl 50 mg tablet 50 mg PO TID PRN 11/11/18 02/18/24 methadone 10 mg/mL oral concentrate 77 mg PO DAILY 02/12/19 02/18/24 atorvastatin 10 mg tablet 10 mg PO QHS #90 tabs 09/03/19 02/18/24 acetaminophen 500 mg tablet 500 - 1,000 mg (1 - 2 x 500 mg) PO 09/24/19 02/18/24 Q8H PRN fever or pain #180 tab-caps alcohol swabs (Alcohol Pads) 1 pad topical QID #400 ea 10/25/22 02/18/24 dextroamphetamine-amphetamine 30 30 mg PO BID 10/25/22 02/18/24 mg tablet (Adderall) lorazepam 0.5 mg tablet 0.5 mg PO DAILY PRN 03/13/23 02/18/24 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 03/13/23 02/18/24 #90 tab-caps albuterol sulfate 90 mcg/actuation 1 - 2 puff inhalation Q4-6H PRN ##1 06/20/23 02/18/24 aerosol inhaler (ProAir HFA) empagliflozin 25 mg tablet 25 mg PO DAILY AM #90 tab-caps 06/20/23 02/18/24 (Jardiance) pen needle, diabetic 32 gauge x #100 ea 06/30/23 02/18/24 (BD Ultra-Fine Yamini Pen Needle) metoclopramide HCl 10 mg tablet 10 mg PO TID 08/04/23 02/18/24 blood sugar diagnostic (Blood #400 ea 08/28/23 02/18/24 Glucose Test strips) blood-glucose meter #1 ea 08/28/23 02/18/24 lancets #400 ea 08/28/23 02/18/24 blood-glucose transmitter (Dexcom #3 ea 09/25/23 02/18/24 G6 Transmitter device) lurasidone 40 mg tablet (Latuda) 120 mg PO DAILY 10/24/23 02/18/24 clonidine HCl 0.2 mg tablet 0.2 mg PO HS 11/21/23 02/18/24 celecoxib 200 mg capsule See Rx Instructions .Route 11/24/23 02/18/24 .COMPLEX #30 caps nystatin 100,000 unit/gram topical 1 applic topical BID PRN fungal 12/04/23 02/18/24 powder skin infection #30 grams omeprazole 40 mg capsule,delayed 40 mg PO DAILY #90 caps 12/15/23 02/18/24 release diclofenac sodium 1 % topical gel 2 g topical QID #100 grams 01/04/24 02/18/24 lidocaine 5 % topical patch 1 patch topical DAILY #15 ea 01/04/24 02/18/24 (Lidoderm) insulin aspart U-100 100 unit/mL 15 unit (0.15 mL) subcut AC #15 mL 01/05/24 02/18/24 (3 mL) subcutaneous pen (Novolog FlexPen U-100 Insulin aspart) divalproex 500 mg tablet,extended 1,000 mg PO DAILY 01/12/24 02/18/24 release 24 hr promethazine 25 mg tablet 25 mg PO Q8H PRN PRN nausea and 01/13/24 02/18/24 vomiting/headache #3 tabs pregabalin 200 mg capsule 200 mg PO TID #270 tab-caps 01/16/24 02/18/24 magnesium oxide 400 mg (241.3 mg 400 mg PO QHS #90 tabs 01/30/24 02/18/24 magnesium) tablet insulin degludec 100 unit/mL (3 See Rx Instructions .Route 02/05/24 02/18/24 mL) subcutaneous pen (Tresiba .COMPLEX #240 mL FlexTouch U-100 insulin) cefpodoxime 200 mg tablet 200 mg PO Q12H 02/12/24 02/13/24 doxycycline hyclate 100 mg tablet 100 mg PO BID 02/12/24 02/13/24 naloxone 4 mg/actuation nasal 4 mg intranasal Q2M PRN opioid 02/13/24 02/13/24 spray (Narcan) overdose #2 ea glucagon 1 mg/0.2 mL subcutaneous 1 mg (0.2 mL) subcut ONCE #0.4 mL 03/03/24 auto-injector (Gvoke HypoPen 2-Pack) ondansetron 4 mg disintegrating See Rx Instructions .Route 03/03/24 tablet .COMPLEX #60 tabs sumatriptan succinate 100 mg tablet 100 mg PO ONCE PRN migraine 03/03/24 headache #30 tab-caps blood-glucose sensor (Dexcom G6 #3 ea 03/05/24 Sensor device) insulin degludec 100 unit/mL (3 140 unit subcut DAILY 03/05/24 mL) subcutaneous pen (Tresiba FlexTouch U-100 insulin) methocarbamol 500 mg tablet 500 mg PO TID #15 tabs 03/06/24 Previous Rx's Medication Instructions Recorded atorvastatin 10 mg tablet 10 mg PO QHS #90 tabs 09/03/19 acetaminophen 500 mg tablet 500 - 1,000 mg (1 - 2 x 500 mg) PO 09/24/19 Q8H PRN fever or pain #180 tab-caps alcohol swabs (Alcohol Pads) 1 pad topical QID #400 ea 10/25/22 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 03/13/23 #90 tab-caps albuterol sulfate 90 mcg/actuation 1 - 2 puff inhalation Q4-6H PRN ##1 06/20/23 aerosol inhaler (ProAir HFA) empagliflozin 25 mg tablet 25 mg PO DAILY AM #90 tab-caps 06/20/23 (Jardiance) pen needle, diabetic 32 gauge x #100 ea 06/30/23/32 (BD Ultra-Fine Yamini Pen Needle) blood sugar diagnostic (Blood #400 ea 08/28/23 Glucose Test strips) blood-glucose meter #1 ea 08/28/23 lancets #400 ea 08/28/23 blood-glucose transmitter (Dexcom #3 ea 09/25/23 G6 Transmitter device) celecoxib 200 mg capsule See Rx Instructions .Route 11/24/23 .COMPLEX #30 caps nystatin 100,000 unit/gram topical 1 applic topical BID PRN fungal 12/04/23 powder skin infection #30 grams omeprazole 40 mg capsule,delayed 40 mg PO DAILY #90 caps 12/15/23 release diclofenac sodium 1 % topical gel 2 g topical QID #100 grams 01/04/24 lidocaine 5 % topical patch 1 patch topical DAILY #15 ea 01/04/24 (Lidoderm) insulin aspart U-100 100 unit/mL 15 unit (0.15 mL) subcut AC #15 mL 01/05/24 (3 mL) subcutaneous pen (Novolog FlexPen U-100 Insulin aspart) promethazine 25 mg tablet 25 mg PO Q8H PRN PRN nausea and 01/13/24 vomiting/headache #3 tabs pregabalin 200 mg capsule 200 mg PO TID #270 tab-caps 01/16/24 magnesium oxide 400 mg (241.3 mg 400 mg PO QHS #90 tabs 01/30/24 magnesium) tablet insulin degludec 100 unit/mL (3 See Rx Instructions .Route 02/05/24 mL) subcutaneous pen (Tresiba .COMPLEX #240 mL FlexTouch U-100 insulin) naloxone 4 mg/actuation nasal 4 mg intranasal Q2M PRN opioid 02/13/24 spray (Narcan) overdose #2 ea glucagon 1 mg/0.2 mL subcutaneous 1 mg (0.2 mL) subcut ONCE #0.4 mL 03/03/24 auto-injector (Gvoke HypoPen 2-Pack) ondansetron 4 mg disintegrating See Rx Instructions .Route 03/03/24 tablet .COMPLEX #60 tabs sumatriptan succinate 100 mg tablet 100 mg PO ONCE PRN migraine 03/03/24 headache #30 tab-caps blood-glucose sensor (Dexcom G6 #3 ea 03/05/24 Sensor device) methocarbamol 500 mg tablet 500 mg PO TID #15 tabs 03/06/24 Allergies Allergy/AdvReac Type Severity Reaction Status Date / Time Penicillins Allergy Severe lip and Verified 03/06/24 20:56 facial swelling lamotrigine [From Lamictal] Allergy Unknown Skin Rash Verified 03/06/24 20:56 clindamycin AdvReac Severe Nausea & Verified 03/06/24 20:56 vomiting aspirin AdvReac Intermediate nausea/pain Verified 03/06/24 20:56 General Stated Complaint: Orthopedic CARLOS: 3 Review of Systems All systems reviewed & are unremarkable except as noted in HPI and below Constitutional Constitutional: Denies fever(s), Denies headache(s) and Denies weakness ENT Ears, Nose, Mouth, and Throat: Denies dizziness, Denies headache(s) and Denies disequilibrium Cardiovascular Cardiovascular: Denies chest pain, Denies syncope and Denies dyspnea Respiratory Respiratory: Denies cough, Denies pain with cough and Denies dyspnea Musculoskeletal Musculoskeletal: Reports as per HPI, Reports myalgias and Reports arthralgias Neurologic Neurologic: Denies dizziness, Denies syncope, Denies headache(s), Denies localized weakness, Denies disequilibrium and Denies weakness Exam Narrative Exam Narrative: General: Awake and conversant, obese appears chronically ill. Skin: Warm and Dry HEENT: Head: No palpable deformities, Normocephalic Eyes: Pupils PERRLA, EOM's intact. No periorbital eccymosis or step off Ears: Canal patent. Tympanic membranes are clear . No arnold's sign, no hemptympanum. Nose/Face: Atraumatic. Facial bones nontender to palpation and stable with manipulation. Mouth/Throat: No intraoral trauma. Teeth and mandible are intact. Neck: No midline tenderness, no step off, no deformity to palpation of C-spine. Trachea midline. Chest: No surface trauma. Nontender without crepitus or deformity. Lungs clear to ausculatation bilaterally. Heart: RRR, no rubs, murmurs or gallop. Abdomen: No abrasions, ecchymosis, or surface trauma. Nondistended. Nontender to palpation no guarding, rebound, or rigidity. Pelvis: Nontender to palpation and stable to compression. Femoral pulses strong and equal Extremities: no surface trauma. Sensation intact. Peripheral pulses intact and equal. Is complaining of some left wrist pain left hand pain, there is some swelling noted to the left wrist and hand, left knee does have some anterior abrasions noted no obvious deformity or significant swelling. Neuro: ANO x4, GCS 15, cranial nerves II through XII intact. Motor and sensory exam nonfocal. Reflexes are symmetric. Course Vital Signs Vital signs: Vital Signs Temperature 37.1 C 03/06/24 20:52 Pulse 91 H 03/06/24 20:52 Respiratory Rate 16 03/06/24 20:52 Blood Pressure 153/95 H 03/06/24 20:52 Pulse Oximetry 96 03/06/24 20:52 Temperature 37.1 C 03/06/24 20:52 Temperature Source Oral 03/06/24 20:52 Pulse 91 H 03/06/24 20:52 Respiratory Rate 16 03/06/24 20:52 Respiratory Effort Normal 03/06/24 20:55 Blood Pressure 153/95 H 03/06/24 20:52 Blood Pressure Position Sitting 03/06/24 20:52 Pulse Oximetry 96 03/06/24 20:52 Oxygen Delivery Method Room Air 03/06/24 20:52 Oxygen Flow Rate 0 03/06/24 20:52 Pain Level 6 03/06/24 21:01 Medical Decision Making 43-year-old female presents to the ER with a chief complaint of fall around 10 this morning, tripped over 3 feet garden fence and landed on her left side. FOOSH type injury. She does report that her left hand wrist and left side of her body are hurting. She does have some swelling noted to her distal radius and pain in her hand. She she is able to flex and extend her left elbow, she is also states that her left knee gave out after the fall while walking up some stairs. She did not not hit her head denies any loss of consciousness denies any neck or back pain. She did take naproxen around noon today and Tylenol which helped somewhat. She is requesting Toradol injection and muscle relaxer. Past medical history includes hepatitis C, hernia, obesity, bipolar, diabetes, she does take methadone, high cholesterol. Patient has multiple medications polypharmacy. X-ray left wrist, hand, elbow, left knee. Patient was given 15 mg of Toradol IM, 10 mg of Flexeril. She is still complaining of pain and is requesting higher dose of medication. [place] wrist splint ordered. See hand x-ray questionable fifth digit middle phalanx fracture. Patient does have some pain on palpation of this area, finger lexx taped., she does have small joint effusion left knee, I do suspect sprain. Also some triceps tendon calcific tendinitis on the left elbow which is chronic. No acute fracture or dislocation. Refilled methocarbamol prescription, patient is requesting higher dose of Toradol or Valium. However with her polypharmacy I do not feel comfortable adding any more medications to the list. Did instruct on RICE procedures at home and follow-up care if needed. Instructed to continue taking naproxen and/or diclofenac topically which she has at home. Discussed return instructions. This text was generated using Secretteation system, please disregard any oddities of phrase or misspellings. Patient was ambulatory upon discharge in the care of her family. Medical Records Medical records reviewed: Yes I reviewed the patient's medical records. Quality:SDOH Health Related Social Needs: No Data to Display PFSH All Active Problems (Updated 03/06/24 @ 23:11 by Sandrita Gautam NP) Sprain of left wrist (Acute) Fall (Acute) Closed fracture of phalanx of left little finger (Acute) Sprain of left knee (Acute) Osteomyelitis (Acute) Abdominal pain (Acute) Obstructive sleep apnea of adult (Acute) [facility] 12/23/23 Muscle spasm of left lower extremity (Acute) Muscle spasm of back (Acute) Diabetic cataract of right eye (Acute) Ulcer of right foot limited to breakdown of skin (Acute 04/16/23) [facility] Ulcer of left foot, limited to breakdown of skin (Acute 04/16/23) [facility] Iron deficiency (Acute) 03/2023 iron studies indicating deficiency (NOT anemic) Migraine (Chronic) [facility] Chronic constipation (Chronic) [facility] Opioid use disorder (Chronic) MAT with methadone Type 2 diabetes mellitus, with long-term current use of insulin (Chronic) With neuropathy & retinopathy (left, mild) Obesity (Chronic) Cirrhosis of liver (Chronic) Asthma (Chronic) Tobacco use disorder (Chronic) Started smoking age 9 Slow transit constipation (Chronic) 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 [facility] Dyspareunia in female (Chronic 07/09/17) Depressive disorder (Chronic 10/31/14) ADMISSION SUICIDAL THOUGHTS 06/13/14 OD ATTEMPTS IN PAST Chronic nausea (Chronic) EGD 04/16/16 Dr. Ferrer; multifactoral: gastroparesis, constipation, hyperglycemia, methadone Chronic fatigue (Chronic 07/19/15) Atrophic vaginitis (Chronic 07/09/17) Medical History Punctate keratitis of both eyes Ulcer of foot due to secondary diabetes Umbilical hernia (03/11/18) 03/17/2018: [facility] Premature surgical menopause JAD/BSO in late 20s, no HRT Hepatitis C 02/14/2016 labwork: undetectable RNA level Surgical History Status post total hysterectomy and bilateral salpingo-oophorectomy (~2006) noncancerous reasons Status post left foot surgery (10/2022) Left fourth metatarsal head excision for chronic ulcer, osteomyelitis ([facility]) Status post section (~2003) EGD (04/16/16) Dr. Ferrer Family History Mother , 46yo due to kidney & liver failure due to alcohol Substance use disorder Alcohol use disorder Father , 62yo from ALS Substance use disorder Alcohol use disorder ALS (amyotrophic lateral sclerosis) Grandmother Colon cancer Paternal Paternal Uncle Cardiac arrest Substance use disorder Alcohol and Pain Medication Abuse Social History Smoking/Tobacco Use Status: Current every day Tobacco Type: cigarettes Smoking packs per day: 1 Smoking cigarettes per day: 20.0 Tobacco: How many years used: 33 Quit status: considering quitting Smoking risk assessment performed?: Yes Alcohol Intake: never Drug use: Occasionally Substance use type: former substance user and marijuana Details: Pt. 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 Pets and animals: Yes (1 dog, 4 cats) Pets and animals: cat(s) and dog(s) Sexually active: Yes Do you think of yourself as: straight/heterosexual Current gender identity: female Other: 09/2022: pt reports she is engaged What is your relationship status?: How often do you talk on the phone with friends or family?: three or more times per week How often do you get together with friends or relatives?: once per week How often do you attend protestant or denominational services?: decline to answer Do you belong to any clubs or organized social groups?: no Panel score (0-1 are the most socially isolated patients): 2 What type of physical activity do you participate in: none Duration: decline to answer Frequency: decline to answer Seatbelt use: always Helmet use: No (No reason to wear one) Drive intox or ride w/intox chain saw 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
[2024-03-06] MEDS: Ketorolac 15 MG/ML VIAL IM (21:29)
[2024-03-06] MEDS: Cyclobenzaprine 10 MG TAB PO (21:29)
--- NOTE | 2024-03-06 22:57 | DI.VRAD_ITS ---
PROCEDURE INFORMATION: Exam: XR Left Knee Exam date and time: 03/06/2024 9:44 PM Age: 43 years old Clinical indication: Left; Patient HX: Fall, knee pain TECHNIQUE: Imaging protocol: Radiologic exam of the left knee. Views: 3 views. COMPARISON: MR LOWER EXTREMITY LT WO/W 07/24/2022 11:18 AM FINDINGS: Bones/joints: No acute fracture. Moderate to severe medial joint compartment degenerative narrowing. Minor joint effusion. Soft tissues: No soft tissue gas or foreign body. No aurora hematoma. IMPRESSION: 1. No fracture or dislocation. 2. Medial joint degenerative narrowing. 3. Minor joint effusion. Dictated and Authenticated by: Ector Mcelroy MD. Ordering:ANGELO Remy MD
--- NOTE | 2024-03-06 22:59 | DI.VRAD_ITS ---
PROCEDURE INFORMATION: Exam: XR Left Elbow Exam date and time: 03/06/2024 9:38 PM Age: 43 years old Clinical indication: Left; Patient HX: Fall, elbow pain TECHNIQUE: Imaging protocol: Radiologic exam of the left elbow. Views: 3 or more views. COMPARISON: CR XR WRIST LT COMPLETE 03/06/2024 9:34 PM FINDINGS: Bones/joints: Normal. No fracture or dislocation Soft tissues: Distal triceps tendon insertion calcium consistent with calcific tendinitis. No soft tissue swelling. No gas or foreign body. IMPRESSION: 1. No acute findings. 2. No fracture or dislocation. 3. Triceps tendon insertion calcific tendinitis. Dictated and Authenticated by: Ector Mcelroy MD. Ordering:ANGELO Remy MD
--- NOTE | 2024-03-06 23:00 | DI.VRAD_ITS ---
PROCEDURE INFORMATION: Exam: XR Left Wrist Exam date and time: 03/06/2024 9:34 PM Age: 43 years old Clinical indication: Left; Patient HX: Fall, wrist pain TECHNIQUE: Imaging protocol: Radiologic exam of the left wrist. Views: 3 or more views. COMPARISON: CR XR HAND LT LIMITED 03/06/2024 9:32 PM FINDINGS: Bones/joints: No acute fracture. No dislocation. Soft tissues: Unremarkable soft tissues. IMPRESSION: 1. No fracture or dislocation. 2. Unremarkable soft tissues. Dictated and Authenticated by: Ector Mcelroy MD. Ordering:ANGELO Remy MD
--- NOTE | 2024-03-06 23:02 | DI.VRAD_ITS ---
PROCEDURE INFORMATION: Exam: XR Left Hand Exam date and time: 03/06/2024 9:32 PM Age: 43 years old Clinical indication: Left; Patient HX: Fall, hand pain TECHNIQUE: Imaging protocol: Radiologic exam of the left hand. Views: 1 or 2 views. COMPARISON: No relevant prior studies available. FINDINGS: Bones/joints: Left 5th finger middle phalanx with an oblique lucent focus. This may represent a vascular channel. Possibility of a nondisplaced fracture should be considered. Recommend clinical correlation. Remainder of skeletal structures of the hand are unremarkable. Soft tissues: Intact soft tissues. No gas or foreign body. IMPRESSION: 1. Fifth finger middle phalanx nondisplaced oblique fracture versus vascular channel. Recommend clinical correlation. 2. Unremarkable soft tissues of the hand. Dictated and Authenticated by: Ector Mcelroy MD. Ordering:ANGELO Remy MD
== END 2024-03-07 00:07 | disposition home or self-care (01) ==
PROVIDERS: Emergency Provider Registered Nurse Emergency; PCP Nurse Practitioner Adult Health
DX: S63.502A Unspecified sprain of left wrist, initial encounter (principal); S62.657A Nondisplaced fracture of middle phalanx of left little finger, initial encounter for closed fracture; S83.92XA Sprain of unspecified site of left knee, initial encounter; W19.XXXA Unspecified fall, initial encounter
CPT/HCPCS: 73562; 96372; 99284; 73080; 73110; 73120; 99283; J1885

== ENCOUNTER → 2024-03-09 14:31 | Outpatient (CLI) | payer OTHER, SELFPAY ==
--- NOTE | 2024-03-09 11:00 | DI.RAD_ITS ---
Exam(s) XR SHOULDER LT COMPLETE 2+V EXAM: XR SHOULDER LT COMPLETE 2+V CLINICAL HISTORY: G89.11 Acute pain,Trauma, rule-out fracture, M25.519 Pain in shoulder. TECHNIQUE: 2D digital imaging was performed. COMPARISON: No exams were available for comparison FINDINGS: Five views. No evidence of fracture or dislocation or abnormal soft tissue calcifications. Subacromial space is not diminished. No obvious degenerative changes in the glenohumeral and AC joints. IMPRESSION: No acute osseous findings in the shoulder. DATA REPOSITORY: RADIATION DOSE DELIVERED:
== END ==
PROVIDERS: PCP Nurse Practitioner Adult Health; Visit Provider Family Medicine
DX: M25.512 Pain in left shoulder (principal)
CPT/HCPCS: 73030

== ENCOUNTER 2024-05-03 07:35 | Emergency (ER) | payer OTHER, SELFPAY ==
[2024-05-03 07:39] VITALS: BP 144/66; PULSE 95; RESP 20; TEMP 37; O2SAT 92
--- NOTE | 2024-05-03 08:04 | W.ED.GENAD ---
Discharge Plan Disposition Patient Disposition: Home Condition: Stable Discharge Details Clinical Impression: Migraine headache, Hyperglycemia Primary Care Provider: Lorena Mann ED Provider: Matt Nunez Home Meds and New Rx's Prescriptions: Continued methadone 10 mg/mL concentrate 77 mg PO DAILY Patient Comments: 77 mg lorazepam 0.5 mg tablet 0.5 mg PO DAILY PRN lurasidone [Latuda] 40 mg tablet 120 mg PO DAILY Patient Comments: per nek[facility] per pt report, 10/24/23, ik - maybe too much? but HAS helped - Rx Instructions: must administer with food (at least 350 calories) albuterol sulfate [ProAir HFA] 90 mcg/actuation HFA aerosol inhaler 1 - 2 puff Inhalation Q4-6H PRN Qty: 1 1RF Rx Instructions: DISPENSE ALBUTEROL INHALER BRAND COVERED BY INSURANCE metoclopramide HCl 10 mg tablet 10 mg PO TID Rx Instructions: administer 30 minutes before meals dextroamphetamine-amphetamine [Adderall] 30 mg tablet 30 mg PO BID Rx Instructions: administer doses at least 4-6 hours apart alcohol swabs [Alcohol Pads] Pads, Medicated 1 pad Topical QID Qty: 400 3RF naloxone [Narcan] 4 mg/actuation spray,non-aerosol 4 mg intranasal Q2M PRN (Reason: opioid overdose) Qty: 2 0RF Rx Instructions: spray 1 dose into ONE nostril; alternate nostrils w each dose until help arrives celecoxib 200 mg capsule See Rx Instructions .ROUTE .COMPLEX Qty: 30 6RF Dose Instruction: TAKE 1 CAPSULE BY MOUTH TWICE DAILY(FOR BACK AND LEG PAIN, DO NOT MIX WITH OTHER NSAIDS) Rx Instructions: TAKE 1 CAPSULE BY MOUTH TWICE DAILY(FOR BACK AND LEG PAIN, DO NOT MIX WITH OTHER NSAIDS) Jardiance 25 mg tablet 25 mg PO DAILY AM Qty: 90 3RF Rx Instructions: Administer once daily in the morning, with or without food Gvoke HypoPen 2-Pack 1 mg/0.2 mL auto-injector 1 mg subcut ONCE Qty: 0.4 1RF Rx Instructions: HYPOGLYCEMIA; as a single dose; may repeat once after 15 minutes if no response pregabalin 200 mg capsule 200 mg PO TID Qty: 270 0RF hydroxyzine HCl 50 mg tablet 50 mg PO TID PRN Patient Comments: note dated 10/27/18 [facility] [place] atorvastatin 10 mg tablet 10 mg PO QHS Qty: 90 0RF acetaminophen 500 mg tablet 500 - 1,000 mg PO Q8H MDD 3000 mg PRN (Reason: fever or pain) Qty: 180 0RF Rx Instructions: 1 month supply (DME) pen needle, diabetic [BD Ultra-Fine Yamini Pen Needle] 32 gauge x 5/32 needle See Rx Instructions .ROUTE .COMPLEX Qty: 100 0RF Dose Instruction: USE TO ADMINISTER INSULIN ONCE DAILY Rx Instructions: USE TO ADMINISTER INSULIN ONCE DAILY (DME) blood-glucose meter Misc See Rx Instructions .Route Qty: 1 0RF Rx Instructions: One Touch meter (DME) lancets Misc See Rx Instructions .ROUTE .MEDSUPPLY Qty: 400 3RF Rx Instructions: As directed to check blood glucose four times daily. On insulin. Dispense one touch ultra (DME) Dexcom G6 Transmitter Device See Rx Instructions .Route Qty: 3 3RF Rx Instructions: As directed nystatin 100,000 unit/gram powder 1 applic Topical BID PRN (Reason: fungal skin infection) Qty: 30 3RF Rx Instructions: Apply powder to affected area under R breast twice daily omeprazole 40 mg capsule,delayed release(DR/EC) 40 mg PO DAILY Qty: 90 0RF insulin aspart U-100 [Novolog FlexPen U-100 Insulin] 100 unit/mL (3 mL) insulin pen 15 unit subcut AC Qty: 15 3RF Rx Instructions: 10-15 units sliding scale before meals sumatriptan succinate 100 mg tablet 100 mg PO ONCE MDD 200 mg PRN (Reason: migraine headache) Qty: 30 2RF Rx Instructions: A second dose can be taken if no response after 2 hours insulin degludec [Tresiba FlexTouch U-100] 100 unit/mL (3 mL) insulin pen 140 unit subcut DAILY Rx Instructions: 03/05/24--decr by 10U per Dr Foster- gabapentin 300 mg capsule 300 mg PO DAILY Qty: 60 0RF valacyclovir 500 mg tablet 500 mg PO DAILY Qty: 90 3RF (DME) Blood Glucose Test Strip See Rx Instructions .MEDSUPPLY Qty: 400 3RF Rx Instructions: As directed to check blood glucose four times daily. On insulin. Dispense one touch ultra (DME) Dexcom G6 Sensor Device See Rx Instructions .ROUTE .COMPLEX Qty: 3 6RF Dose Instruction: USE DIRECTED Rx Instructions: USE DIRECTED magnesium oxide 400 mg (241.3 mg magnesium) tablet 400 mg PO BID Qty: 180 0RF methocarbamol 500 mg tablet 500 mg PO TID PRN (Reason: muscle spasm) Qty: 90 0RF Rx Instructions: Use lowest effective dose for shortest duration for muscle spasm ondansetron 4 mg tablet,disintegrating See Rx Instructions .ROUTE .COMPLEX Qty: 60 0RF Dose Instruction: DISSOLVE TWO TABLETS ON THE TONGUE TWICE A DAY NEEDED FOR FOR NAUSEA AND VOMITING Rx Instructions: DISSOLVE TWO TABLETS ON THE TONGUE TWICE A DAY NEEDED FOR FOR NAUSEA AND VOMITING clonidine HCl 0.2 mg tablet 0.2 mg PO HS Patient Comments: TAKE 1 TABLET BY MOUTH EVERY NIGHT AT BEDTIME mirtazapine 15 mg tablet 15 mg PO HS lidocaine [Lidoderm] 5 % adhesive patch,medicated 1 patch topical DAILY Qty: 15 0RF Rx Instructions: leave on most painful area for up to 12 hrs diclofenac sodium 1 % gel 2 g topical QID Qty: 100 0RF Rx Instructions: apply to single elbow, wrist or hand; for hand includes palm/fingers/back of hand Discharge Instructions Instructions: Migraine in adults Additional Instructions: Please contact your primary care physician to arrange follow-up. Return to the ER immediately for any worsening or any new symptoms including excessive fatigue, weakness, numbness, tingling, atypical pain, fever. Please recalibrate your glucometer and be sure to take insulin as prescribed. Referrals: Lorena Mann NP [Primary Care Provider] - [facility] General Mode of arrival: ambulatory. Date/Time Provider Initiated Documentation: 05/03/24 07:50. Limitations to Documentation: no limitations. Information obtained by: patient. HPI Narrative: 43-year-old female with multiple medical problems including history of migraine headaches, here with headache consistent with prior severe migraines. Patient notes headache started yesterday has persisted. She took her sumatriptan without relief yesterday. She notes last time she had a headache this severe was a few months ago and required treatment in the emergency department. She denies any associated fever. No neurologic symptoms. No new neck stiffness or pain. Patient does have some upper back pain which she states is chronic. Related Data Home Medications ?Medication ?Instructions ?Recorded ?Confirmed hydroxyzine HCl 50 mg tablet 50 mg PO TID PRN 11/11/18 05/03/24 methadone 10 mg/mL oral concentrate 77 mg PO DAILY 02/12/19 05/03/24 atorvastatin 10 mg tablet 10 mg PO QHS #90 tabs 09/03/19 05/03/24 acetaminophen 500 mg tablet 500 - 1,000 mg (1 - 2 x 500 mg) PO 09/24/19 05/03/24 Q8H PRN fever or pain #180 tab-caps alcohol swabs (Alcohol Pads) 1 pad topical QID #400 ea 10/25/22 05/03/24 dextroamphetamine-amphetamine 30 30 mg PO BID 10/25/22 05/03/24 mg tablet (Adderall) lorazepam 0.5 mg tablet 0.5 mg PO DAILY PRN 03/13/23 05/03/24 albuterol sulfate 90 mcg/actuation 1 - 2 puff inhalation Q4-6H PRN ##1 06/20/23 05/03/24 aerosol inhaler (ProAir HFA) pen needle, diabetic 32 gauge x #100 ea 06/30/23 05/03/24 5/32 (BD Ultra-Fine Yamini Pen Needle) metoclopramide HCl 10 mg tablet 10 mg PO TID 08/04/23 05/03/24 blood-glucose meter #1 ea 08/28/23 05/03/24 lancets #400 ea 08/28/23 05/03/24 blood-glucose transmitter (Dexcom #3 ea 09/25/23 05/03/24 G6 Transmitter device) lurasidone 40 mg tablet (Latuda) 120 mg PO DAILY 10/24/23 05/03/24 clonidine HCl 0.2 mg tablet 0.2 mg PO HS 11/21/23 05/03/24 nystatin 100,000 unit/gram topical 1 applic topical BID PRN fungal 12/04/23 05/03/24 powder skin infection #30 grams omeprazole 40 mg capsule,delayed 40 mg PO DAILY #90 caps 12/15/23 05/03/24 release diclofenac sodium 1 % topical gel 2 g topical QID #100 grams 01/04/24 05/03/24 lidocaine 5 % topical patch 1 patch topical DAILY #15 ea 01/04/24 05/03/24 (Lidoderm) insulin aspart U-100 100 unit/mL 15 unit (0.15 mL) subcut AC #15 mL 01/05/24 05/03/24 (3 mL) subcutaneous pen (Novolog FlexPen U-100 Insulin aspart) naloxone 4 mg/actuation nasal 4 mg intranasal Q2M PRN opioid 02/13/24 05/03/24 spray (Narcan) overdose #2 ea sumatriptan succinate 100 mg tablet 100 mg PO ONCE PRN migraine 03/03/24 05/03/24 headache #30 tab-caps insulin degludec 100 unit/mL (3 140 unit subcut DAILY 03/05/24 05/03/24 mL) subcutaneous pen (Tresiba FlexTouch U-100 insulin) gabapentin 300 mg capsule 300 mg PO DAILY #60 caps 04/03/24 05/03/24 celecoxib 200 mg capsule See Rx Instructions .Route 04/05/24 05/03/24 .COMPLEX #30 caps empagliflozin 25 mg tablet 25 mg PO DAILY AM #90 tab-caps 04/05/24 05/03/24 (Jardiance) glucagon 1 mg/0.2 mL subcutaneous 1 mg (0.2 mL) subcut ONCE #0.4 mL 04/05/24 05/03/24 auto-injector (Gvoke HypoPen 2-Pack) pregabalin 200 mg capsule 200 mg PO TID #270 tab-caps 04/05/24 05/03/24 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 04/12/24 05/03/24 #90 tab-caps blood sugar diagnostic (Blood #400 ea 04/26/24 05/03/24 Glucose Test strips) blood-glucose sensor (Dexcom G6 #3 ea 04/26/24 05/03/24 Sensor device) magnesium oxide 400 mg (241.3 mg 400 mg PO BID #180 tabs 04/26/24 05/03/24 magnesium) tablet methocarbamol 500 mg tablet 500 mg PO TID PRN muscle spasm #90 04/26/24 05/03/24 tabs ondansetron 4 mg disintegrating See Rx Instructions .Route 04/26/24 05/03/24 tablet .COMPLEX #60 tabs mirtazapine 15 mg tablet 15 mg PO HS 05/03/24 05/03/24 Previous Rx's ?Medication ?Instructions ?Recorded atorvastatin 10 mg tablet 10 mg PO QHS #90 tabs 09/03/19 acetaminophen 500 mg tablet 500 - 1,000 mg (1 - 2 x 500 mg) PO 09/24/19 Q8H PRN fever or pain #180 tab-caps alcohol swabs (Alcohol Pads) 1 pad topical QID #400 ea 10/25/22 albuterol sulfate 90 mcg/actuation 1 - 2 puff inhalation Q4-6H PRN ##1 06/20/23 aerosol inhaler (ProAir HFA) pen needle, diabetic 32 gauge x #100 ea 06/30/23 (BD Ultra-Fine Yamini Pen Needle) blood-glucose meter #1 ea 08/28/23 lancets #400 ea 08/28/23 blood-glucose transmitter (Dexcom #3 ea 09/25/23 G6 Transmitter device) nystatin 100,000 unit/gram topical 1 applic topical BID PRN fungal 12/04/23 powder skin infection #30 grams omeprazole 40 mg capsule,delayed 40 mg PO DAILY #90 caps 12/15/23 release diclofenac sodium 1 % topical gel 2 g topical QID #100 grams 01/04/24 lidocaine 5 % topical patch 1 patch topical DAILY #15 ea 01/04/24 (Lidoderm) insulin aspart U-100 100 unit/mL 15 unit (0.15 mL) subcut AC #15 mL 01/05/24 (3 mL) subcutaneous pen (Novolog FlexPen U-100 Insulin aspart) naloxone 4 mg/actuation nasal 4 mg intranasal Q2M PRN opioid 02/13/24 spray (Narcan) overdose #2 ea sumatriptan succinate 100 mg tablet 100 mg PO ONCE PRN migraine 03/03/24 headache #30 tab-caps gabapentin 300 mg capsule 300 mg PO DAILY #60 caps 04/03/24 celecoxib 200 mg capsule See Rx Instructions .Route 04/05/24 .COMPLEX #30 caps empagliflozin 25 mg tablet 25 mg PO DAILY AM #90 tab-caps 04/05/24 (Jardiance) glucagon 1 mg/0.2 mL subcutaneous 1 mg (0.2 mL) subcut ONCE #0.4 mL 04/05/24 auto-injector (Gvoke HypoPen 2-Pack) pregabalin 200 mg capsule 200 mg PO TID #270 tab-caps 04/05/24 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 04/12/24 #90 tab-caps blood sugar diagnostic (Blood #400 ea 04/26/24 Glucose Test strips) blood-glucose sensor (Dexcom G6 #3 ea 04/26/24 Sensor device) magnesium oxide 400 mg (241.3 mg 400 mg PO BID #180 tabs 04/26/24 magnesium) tablet methocarbamol 500 mg tablet 500 mg PO TID PRN muscle spasm #90 04/26/24 tabs ondansetron 4 mg disintegrating See Rx Instructions .Route 04/26/24 tablet .COMPLEX #60 tabs Allergies Allergy/AdvReac Type Severity Reaction Status Date / Time Penicillins Allergy Severe lip and Verified 05/03/24 07:41 facial swelling lamotrigine (From Lamictal) Allergy Unknown Skin Rash Verified 05/03/24 07:41 clindamycin AdvReac Severe Nausea & Verified 05/03/24 07:41 vomiting aspirin AdvReac Intermediate nausea/pain Verified 05/03/24 07:41 General Stated Complaint: Headache CARLOS: 3 Review of Systems All systems reviewed & are unremarkable except as noted in HPI and below Constitutional Constitutional: Denies fever(s) Cardiovascular Cardiovascular: Denies chest pain Exam Const General: cooperative and no acute distress HENMT Mouth: moist mucous membranes Eyes Conjunctivae: normal conjunctivae Sclera: normal sclerae Pupils: PERRL EOM: EOM intact bilaterally Neck Neck: trachea midline and supple Resp Auscultation: clear to auscultation bilaterally, no rales, no rhonchi and no wheezes Cardio Rate: regular rate and not tachycardic Rhythm: regular rhythm Neuro General: patient alert, patient awake, tone normal and no meningeal signs Cranial Nerves: CN's II-XI intact bilaterally Cognition: normal cognition Speech: speech normal Motor: strength 5/5 throughout Sensory Exam: no sensory deficits noted Course Vital Signs Vital signs: Vital Signs Temperature 37.0 C 05/03/24 07:39 Pulse 95 H 05/03/24 07:39 Respiratory Rate 20 05/03/24 07:39 Blood Pressure 144/66 H 05/03/24 07:39 Pulse Oximetry 92 05/03/24 07:39 Temperature 37.0 C 05/03/24 07:39 Temperature Source Skin 05/03/24 07:39 Pulse 95 H 05/03/24 07:39 Respiratory Rate 20 05/03/24 07:39 Blood Pressure 144/66 H 05/03/24 07:39 Blood Pressure Position Sitting 05/03/24 07:39 Pulse Oximetry 92 05/03/24 07:39 Oxygen Delivery Method Room Air 05/03/24 07:39 Oxygen Flow Rate 0 05/03/24 07:39 Pain Level 9 05/03/24 07:39 Medical Decision Making 805-- 43yo female with multiple medical problems including history of migraines, here with headache consistent with prior severe migraine. Patient is neurologically intact. No meningismus. Afebrile and hemodynamically stable. History and exam is not consistent with acute life-threatening etiology for headache. Patient saturating in the low to mid 90s. She is a chronic smoker. Plan to treat with Compazine IV, Toradol IV, Benadryl IV and IV fluids. 915 --the patient was reassessed: She notes pain has improved. She is feeling better. She still has photophobia. Patient notes she is tired and is requesting discharge. Pulse ox was reassessed and she is saturating in the mid 90s without any respiratory distress. 935 --fingerstick elevated at 319. Results were reviewed with the patient. Patient notes her meter is in the 200s. She was instructed to calibrate. Recommended insulin and patient provided informed refusal. Patient requesting discharge and plans to take insulin at home. Usual and customary discharge instructions were reviewed with the patient. Patient understands importance of timely follow-up with PCP and to take her insulin as prescribed. Quality:SDOH Health Related Social Needs: No Data to Display PFSH All Active Problems (Updated 05/03/24 @ 09:37 by Matt Nunez MD) Hyperglycemia (Acute) Migraine headache (Chronic) Osteomyelitis (Acute) Obstructive sleep apnea of adult (Acute) [facility] 12/23/23 Muscle spasm of left lower extremity (Acute) Muscle spasm of back (Acute) Diabetic cataract of right eye (Acute) Ulcer of right foot limited to breakdown of skin (Acute 04/16/23) [facility] Ulcer of left foot, limited to breakdown of skin (Acute 04/16/23) [facility] Iron deficiency (Acute) 03/2023 iron studies indicating deficiency (NOT anemic) Migraine (Chronic) [facility] Chronic constipation (Chronic) [facility] Opioid use disorder (Chronic) MAT with methadone Type 2 diabetes mellitus, with long-term current use of insulin (Chronic) With neuropathy & retinopathy (left, mild) Obesity (Chronic) Cirrhosis of liver (Chronic) Asthma (Chronic) Tobacco use disorder (Chronic) Started smoking age 9 Slow transit constipation (Chronic) [facility] 03/17/18 Poorly controlled type 2 diabetes mellitus (Chronic 03/23/18) Polypharmacy (Chronic 12/14/15) Mild nonproliferative diabetic retinopathy associated with type 2 diabetes mellitus (Chronic 01/22/16) Mental health disorder (Chronic) Pt reports being diagnosed with bipolar disorder, disassociative disorder, anxiety, & multiple personality disorder Hypomagnesemia (Chronic 09/30/16) Hyperlipidemia (Chronic 09/30/16) 10-year ASCVD risk = unable to calculate due to not being age 40+ however dx T2DM, so Rx for statin 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 Jimenez [facility] Dyspareunia in female (Chronic 07/09/17) Depressive disorder (Chronic 10/31/14) ADMISSION SUICIDAL THOUGHTS 06/13/14 OD ATTEMPTS IN PAST Chronic nausea (Chronic) EGD 04/16/16 Dr. 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 Ferrer Family History Mother , 46yo due to kidney & liver failure due to alcohol Substance use disorder Alcohol use disorder Father , 62yo from ALS Substance use disorder Alcohol use disorder ALS (amyotrophic lateral sclerosis) Grandmother Colon cancer Paternal Paternal Uncle Cardiac arrest Substance use disorder Alcohol and Pain Medication Abuse Social History Smoking/Tobacco Use Status: Current every day Tobacco Type: cigarettes Smoking packs per day: 1 Smoking cigarettes per day: 20.0 Tobacco: How many years used: 33 Quit status: considering quitting Smoking risk assessment performed?: Yes Alcohol Intake: never Drug use: Occasionally Substance use type: former substance user and marijuana Details: Pt. 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 Pets and animals: Yes (1 dog, 4 cats) Pets and animals: cat(s) and dog(s) Sexually active: Yes Do you think of yourself as: straight/heterosexual Current gender identity: female Other: 09/2022: pt reports she is engaged What is your relationship status?: How often do you talk on the phone with friends or family?: three or more times per week How often do you get together with friends or relatives?: once per week How often do you attend nondenominational or uatsdin services?: decline to answer Do you belong to any clubs or organized social groups?: no Panel score (0-1 are the most socially isolated patients): 2 What type of physical activity do you participate in: none Duration: decline to answer Frequency: decline to answer Seatbelt use: always Helmet use: No (No reason to wear one) Drive intox 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
[2024-05-03] MEDS: Prochlorperazine 10 MG/2 ML VIAL IVP (08:10)
[2024-05-03] MEDS: diphenhydrAMINE 50 MG/ML VIAL 25 MG IVP (08:10)
[2024-05-03] MEDS: Ketorolac 15 MG/ML VIAL IVP (08:10)
[2024-05-03] MEDS: Normal Saline 500 ML IV (08:36)
--- NOTE | 2024-05-03 09:41 | NUR.NOTE ---
Nursing Note: pateint HARIS outof range declined insulin said I will take mine
== END 2024-05-03 09:44 | disposition home or self-care (01) ==
PROVIDERS: Emergency Provider Student in an Organized Health Care Education/Training Program; PCP Nurse Practitioner Adult Health
DX: G43.909 Migraine, unspecified, not intractable, without status migrainosus (principal); R11.2 Nausea with vomiting, unspecified; E11.65 Type 2 diabetes mellitus with hyperglycemia
CPT/HCPCS: 36416; 82962; 96361; 96374; 96375; 99284; 99283; J0780; J1200; J1885

== ENCOUNTER 2024-05-26 17:21 | Emergency (ER) | payer OTHER, SELFPAY ==
[2024-05-26 17:40] VITALS: BP 129/78; PULSE 98; RESP 16; TEMP 36.6; O2SAT 92
[2024-05-26] MEDS: Fluorescein STRIPS 100/BOX 1 MG (18:15)
[2024-05-26] MEDS: Tetracaine 0.5% 4 ML BTL (18:15)
--- NOTE | 2024-05-26 18:27 | W.ED.GENAD ---
Discharge Plan Disposition Patient Disposition: Home Condition: Good Discharge Details Clinical Impression: Corneal abrasion Primary Care Provider: Lorena Mann ED Provider: John Mayorga Home Meds and New Rx's Prescriptions: No Action methadone 10 mg/mL concentrate 77 mg PO DAILY Patient Comments: 77 mg lorazepam 0.5 mg tablet 0.5 mg PO DAILY PRN lurasidone [Latuda] 40 mg tablet 120 mg PO DAILY Patient Comments: per necampbell per pt report, 10/24/23, ik - maybe too much? but HAS helped - Rx Instructions: must administer with food (at least 350 calories) albuterol sulfate [ProAir HFA] 90 mcg/actuation HFA aerosol inhaler 1 - 2 puff Inhalation Q4-6H PRN Qty: 1 1RF Rx Instructions: DISPENSE ALBUTEROL INHALER BRAND COVERED BY INSURANCE metoclopramide HCl 10 mg tablet 10 mg PO TID Rx Instructions: administer 30 minutes before meals dextroamphetamine-amphetamine [Adderall] 30 mg tablet 30 mg PO BID Rx Instructions: administer doses at least 4-6 hours apart alcohol swabs [Alcohol Pads] Pads, Medicated 1 pad Topical QID Qty: 400 3RF naloxone [Narcan] 4 mg/actuation spray,non-aerosol 4 mg intranasal Q2M PRN (Reason: opioid overdose) Qty: 2 0RF Rx Instructions: spray 1 dose into ONE nostril; alternate nostrils w each dose until help arrives Jardiance 25 mg tablet 25 mg PO DAILY AM Qty: 90 3RF Rx Instructions: Administer once daily in the morning, with or without food Gvoke HypoPen 2-Pack 1 mg/0.2 mL auto-injector 1 mg subcut ONCE Qty: 0.4 1RF Rx Instructions: HYPOGLYCEMIA; as a single dose; may repeat once after 15 minutes if no response pregabalin 200 mg capsule 200 mg PO TID Qty: 270 0RF hydroxyzine HCl 50 mg tablet 50 mg PO TID PRN Patient Comments: note dated 10/27/18 [facility] Trudy Ray [facility] atorvastatin 10 mg tablet 10 mg PO QHS Qty: 90 0RF acetaminophen 500 mg tablet 500 - 1,000 mg PO Q8H MDD 3000 mg PRN (Reason: fever or pain) Qty: 180 0RF Rx Instructions: 1 month supply (DME) pen needle, diabetic [BD Ultra-Fine Yamini Pen Needle] 32 gauge x 5/32 needle See Rx Instructions .ROUTE .COMPLEX Qty: 100 0RF Dose Instruction: USE TO ADMINISTER INSULIN ONCE DAILY Rx Instructions: USE TO ADMINISTER INSULIN ONCE DAILY (DME) blood-glucose meter Misc See Rx Instructions .Route Qty: 1 0RF Rx Instructions: One Touch meter (DME) lancets Misc See Rx Instructions .ROUTE .MEDSUPPLY Qty: 400 3RF Rx Instructions: As directed to check blood glucose four times daily. On insulin. Dispense one touch ultra (DME) Dexcom G6 Transmitter Device See Rx Instructions .Route Qty: 3 3RF Rx Instructions: As directed insulin aspart U-100 [Novolog FlexPen U-100 Insulin] 100 unit/mL (3 mL) insulin pen 15 unit subcut AC Qty: 15 3RF Rx Instructions: 10-15 units sliding scale before meals insulin degludec [Tresiba FlexTouch U-100] 100 unit/mL (3 mL) insulin pen 140 unit subcut DAILY Rx Instructions: 03/05/24--decr by 10U per Dr Foster- gabapentin 300 mg capsule 300 mg PO DAILY Qty: 60 0RF valacyclovir 500 mg tablet 500 mg PO DAILY Qty: 90 3RF (DME) Blood Glucose Test Strip See Rx Instructions .MEDSUPPLY Qty: 400 3RF Rx Instructions: As directed to check blood glucose four times daily. On insulin. Dispense one touch ultra (DME) Dexcom G6 Sensor Device See Rx Instructions .ROUTE .COMPLEX Qty: 3 6RF Dose Instruction: USE DIRECTED Rx Instructions: USE DIRECTED magnesium oxide 400 mg (241.3 mg magnesium) tablet 400 mg PO BID Qty: 180 0RF methocarbamol 500 mg tablet 500 mg PO TID PRN (Reason: muscle spasm) Qty: 90 0RF Rx Instructions: Use lowest effective dose for shortest duration for muscle spasm celecoxib 200 mg capsule See Rx Instructions .ROUTE .COMPLEX Qty: 60 0RF Dose Instruction: TAKE 1 CAPSULE BY MOUTH TWICE DAILY(FOR BACK AND LEG PAIN, DO NOT MIX WITH OTHER NSAIDS) Rx Instructions: TAKE 1 CAPSULE BY MOUTH TWICE DAILY(FOR BACK AND LEG PAIN, DO NOT MIX WITH OTHER NSAIDS) ondansetron [Zofran ODT] 8 mg PO PRN omeprazole 40 mg capsule,delayed release(DR/EC) 40 mg PO DAILY Qty: 90 3RF sumatriptan succinate 100 mg tablet 100 mg PO ONCE MDD 200 mg PRN (Reason: migraine headache) Qty: 30 2RF Rx Instructions: A second dose can be taken if no response after 2 hours ondansetron 4 mg tablet,disintegrating See Rx Instructions .ROUTE .COMPLEX Qty: 60 0RF Dose Instruction: DISSOLVE TWO TABLETS ON THE TONGUE TWICE A DAY NEEDED FOR FOR NAUSEA AND VOMITING Rx Instructions: DISSOLVE TWO TABLETS ON THE TONGUE TWICE A DAY NEEDED FOR FOR NAUSEA AND VOMITING nystatin 100,000 unit/gram powder 1 applic Topical BID PRN (Reason: fungal skin infection) Qty: 30 3RF Rx Instructions: Apply powder to affected area under R breast twice daily clonidine HCl 0.2 mg tablet 0.2 mg PO HS Patient Comments: TAKE 1 TABLET BY MOUTH EVERY NIGHT AT BEDTIME mirtazapine 15 mg tablet 15 mg PO HS lidocaine [Lidoderm] 5 % adhesive patch,medicated 1 patch topical DAILY Qty: 15 0RF Rx Instructions: leave on most painful area for up to 12 hrs diclofenac sodium 1 % gel 2 g topical QID Qty: 100 0RF Rx Instructions: apply to single elbow, wrist or hand; for hand includes palm/fingers/back of hand Discharge Instructions Instructions: Corneal Abrasion ED Additional Instructions: At this time you have evidence of a corneal abrasion. Please apply the ointment every 4-6 hours. 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 If you notice any worsening of your symptoms, or any new symptoms such as vomiting, diarrhea, fever, chills, shortness of breath, chest pain, numbness, weakness, or fainting , please return immediately to the emergency department for reevaluation. Please follow up with your primary care provider as soon as possible for reassessment and reevaluation. As always, it was a pleasure participating in your medical care today. Referrals: [facility] [Outside] Discharge Data Discharge Date/Time-TO BE ENTERED AT DEPARTURE: 05/26/24 18:37 HPI General Date/Time Provider Initiated Documentation: 05/26/24 17:26. HPI Narrative: 43-year-old female with a past medical history of previous right eye cataract with subsequent surgery 6 months ago, migraines, type 2 diabetes, high cholesterol, presents today for evaluation of right eye pain. Patient states that about 3 hours ago she developed mild pain in her right eye while watching a movie. The room was not dark. She is uncertain if she scratched it or hit it. Pain is described as achy and burning. Patient does not wear any contacts. Tried flushing her eye but she had no improvement. She denies any history of glaucoma. No trauma. No other complaints. Related Data Home Medications ?Medication ?Instructions ?Recorded ?Confirmed hydroxyzine HCl 50 mg tablet 50 mg PO TID PRN 11/11/18 05/26/24 methadone 10 mg/mL oral concentrate 77 mg PO DAILY 02/12/19 05/26/24 atorvastatin 10 mg tablet 10 mg PO QHS #90 tabs 09/03/19 05/26/24 acetaminophen 500 mg tablet 500 - 1,000 mg (1 - 2 x 500 mg) PO 09/24/19 05/26/24 Q8H PRN fever or pain #180 tab-caps alcohol swabs (Alcohol Pads) 1 pad topical QID #400 ea 10/25/22 05/26/24 dextroamphetamine-amphetamine 30 30 mg PO BID 10/25/22 05/26/24 mg tablet (Adderall) lorazepam 0.5 mg tablet 0.5 mg PO DAILY PRN 03/13/23 05/26/24 albuterol sulfate 90 mcg/actuation 1 - 2 puff inhalation Q4-6H PRN ##1 06/20/23 05/26/24 aerosol inhaler (ProAir HFA) pen needle, diabetic 32 gauge x #100 ea 06/30/23 05/26/24 5/32 (BD Ultra-Fine Yamini Pen Needle) metoclopramide HCl 10 mg tablet 10 mg PO TID 08/04/23 05/26/24 blood-glucose meter #1 ea 08/28/23 05/26/24 lancets #400 ea 08/28/23 05/26/24 blood-glucose transmitter (Dexcom #3 ea 09/25/23 05/26/24 G6 Transmitter device) lurasidone 40 mg tablet (Latuda) 120 mg PO DAILY 10/24/23 05/26/24 clonidine HCl 0.2 mg tablet 0.2 mg PO HS 11/21/23 05/26/24 diclofenac sodium 1 % topical gel 2 g topical QID #100 grams 01/04/24 05/26/24 lidocaine 5 % topical patch 1 patch topical DAILY #15 ea 01/04/24 05/26/24 (Lidoderm) insulin aspart U-100 100 unit/mL 15 unit (0.15 mL) subcut AC #15 mL 01/05/24 05/26/24 (3 mL) subcutaneous pen (Novolog FlexPen U-100 Insulin aspart) naloxone 4 mg/actuation nasal 4 mg intranasal Q2M PRN opioid 02/13/24 05/26/24 spray (Narcan) overdose #2 ea insulin degludec 100 unit/mL (3 140 unit subcut DAILY 03/05/24 05/26/24 mL) subcutaneous pen (Tresiba FlexTouch U-100 insulin) gabapentin 300 mg capsule 300 mg PO DAILY #60 caps 04/03/24 05/26/24 empagliflozin 25 mg tablet 25 mg PO DAILY AM #90 tab-caps 04/05/24 05/26/24 (Jardiance) glucagon 1 mg/0.2 mL subcutaneous 1 mg (0.2 mL) subcut ONCE #0.4 mL 04/05/24 05/26/24 auto-injector (GviCrumz HypoPen 2-Pack) pregabalin 200 mg capsule 200 mg PO TID #270 tab-caps 04/05/24 05/26/24 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 04/12/24 05/26/24 #90 tab-caps blood sugar diagnostic (Blood #400 ea 04/26/24 05/26/24 Glucose Test strips) blood-glucose sensor (Dexcom G6 #3 ea 04/26/24 05/26/24 Sensor device) magnesium oxide 400 mg (241.3 mg 400 mg PO BID #180 tabs 04/26/24 05/26/24 magnesium) tablet methocarbamol 500 mg tablet 500 mg PO TID PRN muscle spasm #90 04/26/24 05/26/24 tabs mirtazapine 15 mg tablet 15 mg PO HS 05/03/24 05/26/24 celecoxib 200 mg capsule See Rx Instructions .Route 05/05/24 05/26/24 .COMPLEX #60 caps ondansetron [Zofran ODT] 8 mg PO PRN 05/13/24 05/26/24 omeprazole 40 mg capsule,delayed 40 mg PO DAILY #90 caps 05/20/24 05/26/24 release nystatin 100,000 unit/gram topical 1 applic topical BID PRN fungal 05/25/24 05/26/24 powder skin infection #30 grams ondansetron 4 mg disintegrating See Rx Instructions .Route 05/25/24 05/26/24 tablet .COMPLEX #60 tabs sumatriptan succinate 100 mg tablet 100 mg PO ONCE PRN migraine 05/25/24 05/26/24 headache #30 tab-caps Previous Rx's ?Medication ?Instructions ?Recorded atorvastatin 10 mg tablet 10 mg PO QHS #90 tabs 09/03/19 acetaminophen 500 mg tablet 500 - 1,000 mg (1 - 2 x 500 mg) PO 09/24/19 Q8H PRN fever or pain #180 tab-caps alcohol swabs (Alcohol Pads) 1 pad topical QID #400 ea 10/25/22 albuterol sulfate 90 mcg/actuation 1 - 2 puff inhalation Q4-6H PRN ##1 06/20/23 aerosol inhaler (ProAir HFA) pen needle, diabetic 32 gauge x #100 ea 06/30/23 5/32 (BD Ultra-Fine Yamini Pen Needle) blood-glucose meter #1 ea 08/28/23 lancets #400 ea 08/28/23 blood-glucose transmitter (Dexcom #3 ea 09/25/23 G6 Transmitter device) diclofenac sodium 1 % topical gel 2 g topical QID #100 grams 01/04/24 lidocaine 5 % topical patch 1 patch topical DAILY #15 ea 01/04/24 (Lidoderm) insulin aspart U-100 100 unit/mL 15 unit (0.15 mL) subcut AC #15 mL 01/05/24 (3 mL) subcutaneous pen (Novolog FlexPen U-100 Insulin aspart) naloxone 4 mg/actuation nasal 4 mg intranasal Q2M PRN opioid 02/13/24 spray (Narcan) overdose #2 ea gabapentin 300 mg capsule 300 mg PO DAILY #60 caps 04/03/24 empagliflozin 25 mg tablet 25 mg PO DAILY AM #90 tab-caps 04/05/24 (Jardiance) glucagon 1 mg/0.2 mL subcutaneous 1 mg (0.2 mL) subcut ONCE #0.4 mL 04/05/24 auto-injector (Randal Espinozaen 2-Pack) pregabalin 200 mg capsule 200 mg PO TID #270 tab-caps 04/05/24 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 04/12/24 #90 tab-caps blood sugar diagnostic (Blood #400 ea 04/26/24 Glucose Test strips) blood-glucose sensor (Dexcom G6 #3 ea 04/26/24 Sensor device) magnesium oxide 400 mg (241.3 mg 400 mg PO BID #180 tabs 04/26/24 magnesium) tablet methocarbamol 500 mg tablet 500 mg PO TID PRN muscle spasm #90 04/26/24 tabs celecoxib 200 mg capsule See Rx Instructions .Route 05/05/24 .COMPLEX #60 caps omeprazole 40 mg capsule,delayed 40 mg PO DAILY #90 caps 05/20/24 release nystatin 100,000 unit/gram topical 1 applic topical BID PRN fungal 05/25/24 powder skin infection #30 grams ondansetron 4 mg disintegrating See Rx Instructions .Route 05/25/24 tablet .COMPLEX #60 tabs sumatriptan succinate 100 mg tablet 100 mg PO ONCE PRN migraine 05/25/24 headache #30 tab-caps Allergies Allergy/AdvReac Type Severity Reaction Status Date / Time Penicillins Allergy Severe lip and Verified 05/26/24 17:46 facial swelling lamotrigine (From Lamictal) Allergy Unknown Skin Rash Verified 05/26/24 17:46 clindamycin AdvReac Severe Nausea & Verified 05/26/24 17:46 vomiting aspirin AdvReac Intermediate nausea/pain Verified 05/26/24 17:46 General Stated Complaint: EyeProblem CARLOS: 4 Review of Systems All systems reviewed & are unremarkable except as noted in HPI and below Exam Narrative Exam Narrative: 1.Const: Well-nourished, Well-developed, appearing stated age 2.Eyes: PERRL, no conjunctival injection, and symmetrical lids. Right eye: Eye: EOMI, PERRL, Peripheral vision intact. No nystagmus. No clinical signs of septal/orbital cellulitis, no redness around the eye, no proptosis. No hyphema, no signs of trauma around the eye, no periorbital emphysema. No sluggishness of the pupil. No ophthalmoplegia. No afferent pupillary defect. Fluorescein exam is positive for uptake just inferior to the pupil. No foreign body. Eversion of the upper and lower lid shows no evidence of retained foreign body., negative Jai sign. Visual acuity as documented in chart. Patient's left eye demonstrates an intraocular pressure of 19 with Cristino-Pen readings. Right eye demonstrates an intraocular pressure between 19 and 20 on average with multiple testings. 3.ENT: Atraumatic external nose and ears. Moist MM. Neck: Symmetric, trachea midline, No thyromegaly. 4.CVS: +S1/S2, No murmurs or gallops. Peripheral pulses 2+ and equal in all extremities. Brisk capillary refill in all extremities. 5.RESP: Unlabored respiratory effort. Clear to auscultation bilaterally. No wheezes rales or rhonchi 6.GI: Soft, Nontender/Nondistended, No hepatosplenomegaly. No guarding or rebound. 7.MSK: Normocephalic/Atraumatic, Extremities w/o deformity or ttp No cyanosis or clubbing, Normal movement of all extremities 8.Skin: Warm, Dry. No rashes or lesions. 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 Sensation grossly intact, no focal neurologic deficits. 10.Psych: (AAO) x3. Appropriate mood and affect Course Vital Signs Vital signs: Vital Signs Temperature 36.6 C 05/26/24 17:40 Pulse 98 H 05/26/24 17:40 Respiratory Rate 16 05/26/24 17:40 Blood Pressure 129/78 05/26/24 17:40 Pulse Oximetry 92 05/26/24 17:40 Temperature 36.6 C 05/26/24 17:40 Pulse 98 H 05/26/24 17:40 Respiratory Rate 16 05/26/24 17:40 Respiratory Effort Normal 05/26/24 17:47 Blood Pressure 129/78 05/26/24 17:40 Pulse Oximetry 92 05/26/24 17:40 Oxygen Delivery Method Room Air 05/26/24 17:40 Oxygen Flow Rate 0 05/26/24 17:40 Pain Level 10 05/26/24 17:40 Medical Decision Making 43-year-old female with a past medical history of previous right eye cataract with subsequent surgery 6 months ago, migraines, type 2 diabetes, high cholesterol, presents today for evaluation of right eye pain. Patient states that about 3 hours ago she developed mild pain in her right eye while watching a movie. The room was not dark. She is uncertain if she scratched it or hit it. Pain is described as achy and burning. Patient does not wear any contacts. Tried flushing her eye but she had no improvement. She denies any history of glaucoma. No trauma. No other complaints. Physical exam demonstrates well-appearing female, mild evidence of corneal uptake on fluorescein staining on the right eye just below the pupil. Eversion of the lid shows no foreign bodies. Intraocular pressures are normal, no evidence to suggest acute angle-closure glaucoma. No evidence to suggest iritis, or globe rupture. No other signs of trauma. Visual acuity is equal in both eyes. Symptoms consistent with corneal abrasion. Pain nearly completely resolved with tetracaine. Patient stable for discharge. Will prescribe erythromycin ointment. I have extensively reviewed the treatment plan and discharge instructions with the patient and their family. I have addressed all patient concerns at this time. The patient and family was made aware of what symptoms to monitor for that would warrant a return to the emergency department. Discussed the plan with the patient and family, they demonstrate verbal understanding and agreement with our assessment and plan at this time. The documentation in this chart was dictated using Nurigene dictation software. Please excuse any dictation errors. Quality:SDOH Health Related Social Needs: No Data to Display PFSH All Active Problems Corneal abrasion (Acute) Hyperglycemia (Acute) Migraine headache (Chronic) Osteomyelitis (Acute) Obstructive sleep apnea of adult (Acute) [facility] 12/23/23 Muscle spasm of left lower extremity (Acute) Muscle spasm of back (Acute) Diabetic cataract of right eye (Acute) Ulcer of right foot limited to breakdown of skin (Acute 04/16/23) [facility] Ulcer of left foot, limited to breakdown of skin (Acute 04/16/23) [facility] Iron deficiency (Acute) 03/2023 iron studies indicating deficiency (NOT anemic) Migraine (Chronic) [facility] Chronic constipation (Chronic) [facility] Opioid use disorder (Chronic) MAT with methadone Type 2 diabetes mellitus, with long-term current use of insulin (Chronic) With neuropathy & retinopathy (left, mild) Obesity (Chronic) Cirrhosis of liver (Chronic) Asthma (Chronic) Tobacco use disorder (Chronic) Started smoking age 9 Slow transit constipation (Chronic) 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 [facility] Dyspareunia in female (Chronic 07/09/17) Depressive disorder (Chronic 10/31/14) ADMISSION SUICIDAL THOUGHTS 06/13/14 OD ATTEMPTS IN PAST Chronic nausea (Chronic) EGD 04/16/16 Dr. Ferrer; multifactoral: gastroparesis, constipation, hyperglycemia, methadone Chronic fatigue (Chronic 07/19/15) Atrophic vaginitis (Chronic 07/09/17) Medical History Punctate keratitis of both eyes Ulcer of foot due to secondary diabetes Umbilical hernia (03/11/18) 03/17/2018: [facility] Premature surgical menopause JAD/BSO in late 20s, no HRT Hepatitis C 02/14/2016 labwork: undetectable RNA level Surgical History Status post total hysterectomy and bilateral salpingo-oophorectomy (~2006) noncancerous reasons Status post left foot surgery (10/2022) Left fourth metatarsal head excision for chronic ulcer, osteomyelitis ([facility]/Tamia Vidales DPM) Status post section (~2003) EGD (04/16/16) Dr. Ferrer Family History Mother , 46yo due to kidney & liver failure due to alcohol Substance use disorder Alcohol use disorder Father , 62yo from ALS Substance use disorder Alcohol use disorder ALS (amyotrophic lateral sclerosis) Grandmother Colon cancer Paternal Paternal Uncle Cardiac arrest Substance use disorder Alcohol and Pain Medication Abuse Social History Smoking/Tobacco Use Status: Current every day Tobacco Type: cigarettes Smoking packs per day: 1 Smoking cigarettes per day: 20.0 Tobacco: How many years used: 33 Quit status: considering quitting Smoking risk assessment performed?: Yes Alcohol Intake: never Drug use: Occasionally Substance use type: former substance user and marijuana Details: Pt. 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 Pets and animals: Yes (1 dog, 4 cats) Pets and animals: cat(s) and dog(s) Sexually active: Yes Do you think of yourself as: straight/heterosexual Current gender identity: female Other: 09/2022: pt reports she is engaged What is your relationship status?: How often do you talk on the phone with friends or family?: three or more times per week How often do you get together with friends or relatives?: once per week How often do you attend scientologist or gnosticism services?: decline to answer Do you belong to any clubs or organized social groups?: no Panel score (0-1 are the most socially isolated patients): 2 What type of physical activity do you participate in: none Duration: decline to answer Frequency: decline to answer Seatbelt use: always Helmet use: No (No reason to wear one) Drive intox or ride w/intox dedicated truck 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
[2024-05-26] MEDS: Erythromycin Ophth Oint 3.5 GM TUBE OD (18:36)
== END 2024-05-26 18:37 | disposition home or self-care (01) ==
PROVIDERS: Emergency Provider Student in an Organized Health Care Education/Training Program; PCP Nurse Practitioner Adult Health
DX: S05.01XA Injury of conjunctiva and corneal abrasion without foreign body, right eye, initial encounter (principal); H57.11 Ocular pain, right eye; X58.XXXA Exposure to other specified factors, initial encounter
CPT/HCPCS: 99283

== ENCOUNTER 2024-06-07 21:24 | Emergency (ER) | payer OTHER, SELFPAY ==
[2024-06-07 21:27] VITALS: BP 133/84; PULSE 95; RESP 12; TEMP 36.6; O2SAT 90
--- NOTE | 2024-06-07 22:30 | ED.GENADUL_ITS ---
Discharge Plan Disposition Patient Disposition: Home Condition: Good Discharge Details Clinical Impression: Acute pancreatitis Primary Care Provider: Lorena Mann ED Provider: John Mayorga Home Meds and New Rx's Prescriptions: No Action methadone 10 mg/mL concentrate 77 mg PO DAILY Patient Comments: 77 mg lorazepam 0.5 mg tablet 0.5 mg PO DAILY PRN lurasidone [Latuda] 40 mg tablet 120 mg PO DAILY Patient Comments: per larissa per pt report, 10/24/23, ik - maybe too much? but HAS helped - Rx Instructions: must administer with food (at least 350 calories) albuterol sulfate 90 mcg/actuation HFA aerosol inhaler 1 - 2 puff Inhalation Q4-6H PRN Qty: 1 1RF Rx Instructions: DISPENSE ALBUTEROL INHALER BRAND COVERED BY INSURANCE metoclopramide HCl 10 mg tablet 10 mg PO TID PRN Rx Instructions: administer 30 minutes before meals ondansetron 8 mg tablet,disintegrating 8 mg PO BID PRN (Reason: nausea and vomiting) Qty: 60 11RF pregabalin 200 mg capsule 200 mg PO TID Qty: 270 0RF celecoxib 200 mg capsule See Rx Instructions .ROUTE .COMPLEX Qty: 60 5RF Dose Instruction: TAKE 1 CAPSULE BY MOUTH TWICE DAILY(FOR BACK AND LEG PAIN, DO NOT MIX WITH OTHER NSAIDS) Rx Instructions: TAKE 1 CAPSULE BY MOUTH TWICE DAILY(FOR BACK AND LEG PAIN, DO NOT MIX WITH OTHER NSAIDS) gabapentin 300 mg capsule 300 mg PO HS PRN (Reason: back pain) Qty: 60 0RF Gvoke HypoPen 2-Pack 1 mg/0.2 mL auto-injector 1 mg subcut ONCE Qty: 0.4 1RF Rx Instructions: HYPOGLYCEMIA; as a single dose; may repeat once after 15 minutes if no response methocarbamol 500 mg tablet 1,000 mg PO HS PRN (Reason: muscle spasm) Qty: 90 0RF Rx Instructions: Use lowest effective dose for shortest duration for muscle spasm ipratropium-albuterol 0.5 mg-3 mg(2.5 mg base)/3 mL solution for nebulization 3 ml inhalation QID PRN (Reason: wheezing) Qty: 180 1RF Rx Instructions: During asthma exacerbation, may use preventatively TID, titrating down to QID PRN as wheeze & SOB improve. fluticasone propion-salmeterol [Advair Diskus] 250-50 mcg/dose blister with device 1 inh inhalation BID Qty: 60 1RF Rx Instructions: Please use this during asthma exacerbations, wean off as shortness of breath & wheeze improve. dextroamphetamine-amphetamine [Adderall] 30 mg tablet 30 mg PO BID Rx Instructions: administer doses at least 4-6 hours apart alcohol swabs [Alcohol Pads] Pads, Medicated 1 pad Topical QID Qty: 400 3RF naloxone [Narcan] 4 mg/actuation spray,non-aerosol 4 mg intranasal Q2M PRN (Reason: opioid overdose) Qty: 2 0RF Rx Instructions: spray 1 dose into ONE nostril; alternate nostrils w each dose until help arrives Jardiance 25 mg tablet 25 mg PO DAILY AM Qty: 90 3RF Rx Instructions: Administer once daily in the morning, with or without food hydroxyzine HCl 50 mg tablet 50 mg PO TID PRN Patient Comments: note dated 10/27/18 [facility] Trudy [facility] atorvastatin 10 mg tablet 10 mg PO QHS Qty: 90 0RF acetaminophen 500 mg tablet 500 - 1,000 mg PO Q8H MDD 3000 mg PRN (Reason: fever or pain) Qty: 180 0RF Rx Instructions: 1 [place] [place] needle, diabetic [BD Ultra-Fine Yamini Pen Needle] 32 gauge x 5/32 needle See Rx Instructions .ROUTE .COMPLEX Qty: 100 0RF Dose Instruction: USE TO ADMINISTER INSULIN ONCE DAILY Rx Instructions: USE TO ADMINISTER INSULIN ONCE DAILY (DME) blood-glucose meter Misc See Rx Instructions .Route Qty: 1 0RF Rx Instructions: One Touch meter (DME) lancets Misc See Rx Instructions .ROUTE .MEDSUPPLY Qty: 400 3RF Rx Instructions: As directed to check blood glucose four times daily. On insulin. Dispense one touch ultra (DME) Dexcom G6 Transmitter Device See Rx Instructions .Route Qty: 3 3RF Rx Instructions: As directed insulin aspart U-100 [Novolog FlexPen U-100 Insulin] 100 unit/mL (3 mL) insulin pen 15 unit subcut AC Qty: 15 3RF Rx Instructions: 10-15 units sliding scale before meals insulin degludec [Tresiba FlexTouch U-100] 100 unit/mL (3 mL) insulin pen 140 unit subcut DAILY Rx Instructions: 03/05/24--decr by 10U per Dr Foster- valacyclovir 500 mg tablet 500 mg PO DAILY Qty: 90 3RF (DME) Blood Glucose Test Strip See Rx Instructions .MEDSUPPLY Qty: 400 3RF Rx Instructions: As directed to check blood glucose four times daily. On insulin. Dispense one touch ultra (DME) Dexcom G6 Sensor Device See Rx Instructions .ROUTE .COMPLEX Qty: 3 6RF Dose Instruction: USE DIRECTED Rx Instructions: USE DIRECTED magnesium oxide 400 mg (241.3 mg magnesium) tablet 400 mg PO BID Qty: 180 0RF omeprazole 40 mg capsule,delayed release(DR/EC) 40 mg PO DAILY Qty: 90 3RF sumatriptan succinate 100 mg tablet 100 mg PO ONCE MDD 200 mg PRN (Reason: migraine headache) Qty: 30 2RF Rx Instructions: A second dose can be taken if no response after 2 hours nystatin 100,000 unit/gram powder 1 applic Topical BID PRN (Reason: fungal skin infection) Qty: 30 3RF Rx Instructions: Apply powder to affected area under R breast twice daily clonidine HCl 0.2 mg tablet 0.2 mg PO HS Patient Comments: TAKE 1 TABLET BY MOUTH EVERY NIGHT AT BEDTIME mirtazapine 15 mg tablet 15 mg PO HS Ajovy Autoinjector 225 mg/1.5 mL auto-injector 225 mg subcut QMONTH Botox 100 unit recon soln 300 unit IM ONCE Rx Instructions: divided among affected muscles Discharge Instructions Instructions: Acute pancreatitis Additional Instructions: At this time it is our recommendations that you stay until the CAT scan results have returned. However you have chosen to go home. I will contact you with the results. At this time you do have evidence of pancreatitis. Please avoid any fatty or greasy foods. Avoid any overly sugary foods. Please drink plenty of fluids and stay well-hydrated and stick to a liquid diet for the next 3 to 4 days. Take the pain pills only as needed for breakthrough pain. The pancreatitis should resolve on its own with time. If you notice any worsening of your symptoms, or any new symptoms such as vomiting, diarrhea, fever, chills, shortness of breath, chest pain, numbness, weakness, or fainting , please return immediately to the emergency department for reevaluation. Please follow up with your primary care provider as soon as possible for reassessment and reevaluation. As always, it was a pleasure participating in your medical care today. Referrals: Lorena Mann NP [Primary Care Provider] - [facility] General Date/Time Provider Initiated Documentation: 06/07/24 21:49 . HPI Narrative: 43-year-old female with a past medical history of diabetes mellitus, gastroparesis in the past, migraines, recurrent constipation, depression, and a past surgical history of total hysterectomy with salpingo-oophorectomy, C- section x 1, who presents today for evaluation of abdominal pain and vomiting. Patient states that at 5 AM she woke up at some epigastric cramping, and felt l ingrid she has had in the past when she was constipated. She had about 5 episodes of vomiting in the day during the morning and early afternoon. She had a few sips of soup this afternoon and has not vomited in the last few hours. She did take Colace, stool softeners, and enema, but was not able to have any significant bowel movement. She denies any hematemesis. She denies any recent diarrhea. Pain is described as achy in nature. No other complaints at this time. Related Data Home Medications ?Medication ?Instructions ?Recorded ?Confirmed hydroxyzine HCl 50 mg tablet 50 mg PO TID PRN 11/11/18 06/07/24 methadone 10 mg/mL oral concentrate 77 mg PO DAILY 02/12/19 06/07/24 atorvastatin 10 mg tablet 10 mg PO QHS #90 tabs 09/03/19 06/07/24 acetaminophen 500 mg tablet 500 - 1,000 mg (1 - 2 x 500 mg) PO 09/24/19 06/07/24 Q8H PRN fever or pain #180 tab-caps alcohol swabs (Alcohol Pads) 1 pad topical QID #400 ea 10/25/22 06/07/24 dextroamphetamine-amphetamine 30 30 mg PO BID 10/25/22 06/07/24 mg tablet (Adderall) lorazepam 0.5 mg tablet 0.5 mg PO DAILY PRN 03/13/23 06/07/24 pen needle, diabetic 32 gauge x #100 ea 06/30/23 06/07/24 (BD Ultra-Fine Yamini Pen Needle) blood-glucose meter #1 ea 08/28/23 06/07/24 lancets #400 ea 08/28/23 06/07/24 blood-glucose transmitter (Dexcom #3 ea 09/25/23 06/07/24 G6 Transmitter device) lurasidone 40 mg tablet (Latuda) 120 mg PO DAILY 10/24/23 06/07/24 clonidine HCl 0.2 mg tablet 0.2 mg PO HS 11/21/23 06/07/24 insulin aspart U-100 100 unit/mL 15 unit (0.15 mL) subcut AC #15 mL 01/05/24 06/07/24 (3 mL) subcutaneous pen (Novolog FlexPen U-100 Insulin aspart) naloxone 4 mg/actuation nasal 4 mg intranasal Q2M PRN opioid 02/13/24 06/07/24 spray (Narcan) overdose #2 ea insulin degludec 100 unit/mL (3 140 unit subcut DAILY 03/05/24 06/07/24 mL) subcutaneous pen (Tresiba FlexTouch U-100 insulin) empagliflozin 25 mg tablet 25 mg PO DAILY AM #90 tab-caps 04/05/24 06/07/24 (Jardiance) 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 04/12/24 06/07/24 #90 tab-caps blood sugar diagnostic (Blood #400 ea 04/26/24 06/07/24 Glucose Test strips) blood-glucose sensor (Dexcom G6 #3 ea 04/26/24 06/07/24 Sensor device) magnesium oxide 400 mg (241.3 mg 400 mg PO BID #180 tabs 04/26/24 06/07/24 magnesium) tablet mirtazapine 15 mg tablet 15 mg PO HS 05/03/24 06/07/24 omeprazole 40 mg capsule,delayed 40 mg PO DAILY #90 caps 05/20/24 06/07/24 release nystatin 100,000 unit/gram topical 1 applic topical BID PRN fungal 05/25/24 06/07/24 powder skin infection #30 grams sumatriptan succinate 100 mg tablet 100 mg PO ONCE PRN migraine 05/25/24 06/07/24 headache #30 tab-caps albuterol sulfate 90 mcg/actuation 1 - 2 puff inhalation Q4-6H PRN ##1 05/31/24 06/07/24 aerosol inhaler celecoxib 200 mg capsule See Rx Instructions .Route 05/31/24 06/07/24 .COMPLEX #60 caps fluticasone 250 mcg-salmeterol 50 1 inh inhalation BID #60 ea 05/31/24 06/07/24 mcg/dose blistr powdr for inhalation (Advair Diskus) gabapentin 300 mg capsule 300 mg PO HS PRN back pain #60 caps 05/31/24 06/07/24 glucagon 1 mg/0.2 mL subcutaneous 1 mg (0.2 mL) subcut ONCE #0.4 mL 05/31/24 06/07/24 auto-injector (Gvoke HypoPen 2-Pack) ipratropium 0.5 mg-albuterol 3 mg 3 ml inhalation QID PRN wheezing 05/31/24 06/07/24 (2.5 mg base)/3 mL nebulization #180 mL soln methocarbamol 500 mg tablet 1,000 mg (2 x 500 mg) PO HS PRN 05/31/24 06/07/24 muscle spasm #90 tabs metoclopramide HCl 10 mg tablet 10 mg PO TID PRN 05/31/24 06/07/24 ondansetron 8 mg disintegrating 8 mg PO BID PRN nausea and 05/31/24 06/07/24 tablet vomiting #60 tabs pregabalin 200 mg capsule 200 mg PO TID #270 tab-caps 05/31/24 06/07/24 fremanezumab-vfrm 225 mg/1.5 mL 225 mg subcut QMONTH 06/07/24 06/07/24 subcutaneous auto-injector (Ajovy) onabotulinumtoxinA 100 unit 300 unit IM ONCE 06/07/24 06/07/24 solution for injection (Botox) Previous Rx's ?Medication ?Instructions ?Recorded atorvastatin 10 mg tablet 10 mg PO QHS #90 tabs 09/03/19 acetaminophen 500 mg tablet 500 - 1,000 mg (1 - 2 x 500 mg) PO 09/24/19 Q8H PRN fever or pain #180 tab-caps alcohol swabs (Alcohol Pads) 1 pad topical QID #400 ea 10/25/22 pen needle, diabetic 32 gauge x #100 ea 06/30/23 (BD Ultra-Fine Yamini Pen Needle) blood-glucose meter #1 ea 08/28/23 lancets #400 ea 08/28/23 blood-glucose transmitter (Dexcom #3 ea 09/25/23 G6 Transmitter device) insulin aspart U-100 100 unit/mL 15 unit (0.15 mL) subcut AC #15 mL 01/05/24 (3 mL) subcutaneous pen (Novolog FlexPen U-100 Insulin aspart) naloxone 4 mg/actuation nasal 4 mg intranasal Q2M PRN opioid 02/13/24 spray (Narcan) overdose #2 ea empagliflozin 25 mg tablet 25 mg PO DAILY AM #90 tab-caps 04/05/24 (Jardiance) 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 04/12/24 #90 tab-caps blood sugar diagnostic (Blood #400 ea 04/26/24 Glucose Test strips) blood-glucose sensor (Dexcom G6 #3 ea 04/26/24 Sensor device) magnesium oxide 400 mg (241.3 mg 400 mg PO BID #180 tabs 04/26/24 magnesium) tablet omeprazole 40 mg capsule,delayed 40 mg PO DAILY #90 caps 05/20/24 release nystatin 100,000 unit/gram topical 1 applic topical BID PRN fungal 05/25/24 powder skin infection #30 grams sumatriptan succinate 100 mg tablet 100 mg PO ONCE PRN migraine 05/25/24 headache #30 tab-caps albuterol sulfate 90 mcg/actuation 1 - 2 puff inhalation Q4-6H PRN ##1 05/31/24 aerosol inhaler celecoxib 200 mg capsule See Rx Instructions .Route 05/31/24 .COMPLEX #60 caps fluticasone 250 mcg-salmeterol 50 1 inh inhalation BID #60 ea 05/31/24 mcg/dose blistr powdr for inhalation (Advair Diskus) gabapentin 300 mg capsule 300 mg PO HS PRN back pain #60 caps 05/31/24 glucagon 1 mg/0.2 mL subcutaneous 1 mg (0.2 mL) subcut ONCE #0.4 mL 05/31/24 auto-injector (Gvoke HypoPen 2-Pack) ipratropium 0.5 mg-albuterol 3 mg 3 ml inhalation QID PRN wheezing 05/31/24 (2.5 mg base)/3 mL nebulization #180 mL soln methocarbamol 500 mg tablet 1,000 mg (2 x 500 mg) PO HS PRN 05/31/24 muscle spasm #90 tabs ondansetron 8 mg disintegrating 8 mg PO BID PRN nausea and 05/31/24 tablet vomiting #60 tabs pregabalin 200 mg capsule 200 mg PO TID #270 tab-caps 05/31/24 Allergies Allergy/AdvReac Type Severity Reaction Status Date / Time Penicillins Allergy Severe lip and Verified 06/07/24 21:30 facial swelling lamotrigine (From Lamictal) Allergy Unknown Skin Rash Verified 06/07/24 21:30 clindamycin AdvReac Severe Nausea & Verified 06/07/24 21:30 vomiting aspirin AdvReac Intermediate nausea/pain Verified 06/07/24 21:30 General Stated Complaint: Abd Prob CARLOS: 3 Review of Systems All systems reviewed & are unremarkable except as noted in HPI and below Exam Narrative Exam Narrative: 1.Const: Well-nourished, Well-developed, appearing stated age 2.Eyes: PERRL, no conjunctival injection, and symmetrical lids. 3.ENT: Atraumatic external nose and ears. Moist MM. Neck: Symmetric, trachea midline, No thyromegaly. 4.CVS: +S1/S2, No murmurs or gallops. Peripheral pulses 2+ and equal in all extremities. Brisk capillary refill in all extremities. 5.RESP: Unlabored respiratory effort. Clear to auscultation bilaterally. No wheezes rales or rhonchi 6.GI: Soft, Nondistended, No hepatosplenomegaly. No guarding or rebound. Mild tenderness in the epigastric region. Negative Husain sign, no pain at McBurney's point. Bowel sounds slightly reduced. Negative Rovsing sign. 7.MSK: Normocephalic/Atraumatic, Extremities w/o deformity or ttp No cyanosis or clubbing, Normal movement of all extremities 8.Skin: Warm, Dry. No rashes or lesions. 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 Sensation grossly intact, no focal neurologic deficits. 10.Psych: (AAO) x3. Appropriate mood and affect Course Vital Signs Vital signs: Vital Signs Temperature 36.6 C 06/07/24 21:27 Pulse 95 H 06/07/24 21:27 Respiratory Rate 12 06/07/24 21:27 Blood Pressure 133/84 06/07/24 21:27 Pulse Oximetry 90 L 06/07/24 21:27 Temperature 36.6 C 06/07/24 21:27 Pulse 95 H 06/07/24 21: Respiratory Rate 12 06/07/24 21:27 Respiratory Effort Normal 06/07/24 21:34 Blood Pressure 133/84 06/07/24 21:27 Pulse Oximetry 90 L 06/07/24 21:27 Oxygen Delivery Method Room Air 06/07/24 21: Oxygen Flow Rate 0 06/07/24 21:27 Pain Level 10 06/07/24 21:27 Medical Decision Making 43-year-old female with a past medical history of diabetes mellitus, gastroparesis in the past, migraines, recurrent constipation, depression, and a past surgical history of total hysterectomy with salpingo-oophorectomy, C- section x 1, who presents today for evaluation of abdominal pain and vomiting. Patient states that at 5 AM she woke up at some epigastric cramping, and felt like she has had in the past when she was constipated. She had about 5 episodes of vomiting in the day during the morning and early afternoon. She had a few sips of soup this afternoon and has not vomited in the last few hours. She did take Colace, stool softeners, and enema, but was not able to have any s ignificant bowel movement. She denies any hematemesis. She denies any recent diarrhea. Pain is described as achy in nature. No other complaints at this time. Exam demonstrates well-appearing female, mild epigastric achiness on palpation. Reduced bowel sounds on auscultation. No signs of an acute surgical abdomen though. Mucous membranes are minimally dry, rectal exam was performed with [facility] nurse Verma at bedside. No stool was palpated in the rectal vault. No hard stool ball. Concern for more proximal constipation versus pancreatitis, cholecystitis, ileus, obstruction, or less likely enteritis. Will rehydrate, get a CT scan for further assessment, treat with Toradol and Zofran, monitor closely and reassess. 11:43 PM Laboratory workup shows mildly elevated white count of 14, electrolytes stable, BUN elevated at 22, creatinine 1.3, calcium minimally elevated at 10.2. Lipase is notably elevated at greater than 375 suggestive of acute pancreatitis. CT scan shows no evidence of acute process. No bowel obstruction, no cholecystitis. Patient feels well and would like to go home. She is requesting discharge. Vital signs remained stable. She has been rehydrated, [place] score is in the low risk category. I did give the patient the option of overnight admission and observation, however she has declined. Will recommend continued fluids at home, we will give 3 pain pills for use as needed at home for breakthrough pain. She has been able to tolerate p.o. here without any difficulty. Patient will be discharged. No evidence of ascending cholangitis on exam or imaging. Bilirubin normal. Discussed red flags for which to return. I have extensively reviewed the treatment plan and discharge instructions with the patient. I have addressed all patient concerns at this time. The patient was made aware of what symptoms to monitor for that would warrant a return to the emergency department. Discussed the plan with the patient, they demonstrate verbal understanding and agreement with our assessment and plan at this time. The documentation in this chart was dictated using [employer] dictation software. Please excuse any dictation errors. FINDINGS: Lungs: No acute infiltrate in either lung base. Liver: Areas of geographic fatty infiltration within the anterior liver. Gallbladder and biliary ducts: Cholelithiasis, otherwise normal gallbladder. No biliary tract dilatation. Pancreas: Diffuse peripancreatic stranding indicating acute pancreatitis. No pancreatic ductal dilatation. No pseudocyst formation. Spleen: Normal. No splenomegaly. Adrenal glands: Normal. No mass. Kidneys and ureters: No hydronephrosis. No calcified renal or ureteral stones. No perinephric stranding or perinephric fluid. Stomach and bowel: Unremarkable. No obstruction. No mucosal thickening. Moderate amount of stool in the majority of the colon. Appendix: Normal appendix. Intraperitoneal space: No free air. No significant fluid collection. Vasculature: The abdominal aorta is normal in caliber without aneurysm. Lymph nodes: No enlarged lymph nodes. Urinary bladder: Unremarkable as visualized. Reproductive: Prior hysterectomy. Bones/joints: Unremarkable for patient age. Soft tissues: Unremarkable. IMPRESSION: 1. Diffuse peripancreatic stranding indicating acute pancreatitis. 2. No bowel obstruction. 3. Cholelithiasis, otherwise normal gallbladder. No biliary tract dilatation. 4. Areas of geographic fatty infiltration within the anterior liver. Thank you for allowing us to participate in the care of your patient. Dictated and Authenticated by: Get Nelson MD 06/08/2024 12:26 AM Eastern Time ([place] & [place]) Quality:SDOH Health Related Social Needs: No Data to Display PFSH All Active Problems (Updated 06/07/24 @ 23:35 by John Mayorga DO) Acute pancreatitis (Acute) Corneal abrasion (Acute) Obstructive sleep apnea of adult (Acute) [facility] 12/23/23 Muscle spasm of left lower extremity (Acute) Muscle spasm of back (Acute) Diabetic cataract of right eye (Acute) Ulcer of right foot limited to breakdown of skin (Acute 04/16/23) [facility] Ulcer of left foot, limited to breakdown of skin (Acute 04/16/23) [facility] Iron deficiency (Acute) 03/2023 iron studies indicating deficiency (NOT anemic) Migraine (Chronic) [facility] Chronic constipation (Chronic) [facility] Opioid use disorder (Chronic) MAT with methadone Type 2 diabetes mellitus, with long-term current use of insulin (Chronic) With neuropathy & retinopathy (left, mild) Obesity (Chronic) Cirrhosis of liver (Chronic) [facility] Asthma (Chronic) Tobacco use disorder (Chronic) Started smoking age 9 Poorly controlled type 2 diabetes mellitus (Chronic 03/23/18) Polypharmacy (Chronic 12/14/15) Mild nonproliferative diabetic retinopathy associated with type 2 diabetes mellitus (Chronic 01/22/16) Mental health disorder (Chronic) Pt reports being diagnosed with bipolar disorder, disassociative disorder, anxiety, & multiple personality disorder Hypomagnesemia (Chronic 09/30/16) Hyperlipidemia (Chronic 09/30/16) 10-year ASCVD risk = unable to calculate due to not being age 40+ however dx T2DM, so Rx for statin 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 Jimenez [facility] 2023: [facility] GI Depressive disorder (Chronic 10/31/14) ADMISSION SUICIDAL THOUGHTS 06/13/14 OD ATTEMPTS IN PAST Chronic nausea (Chronic) EGD 04/16/16 Dr. 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) Medical History Chronic fatigue (07/19/15) Osteomyelitis Dyspareunia in female (07/09/17) Punctate keratitis of both eyes Ulcer of foot due to secondary diabetes Umbilical hernia (03/11/18) 03/17/2018: [facility] Premature surgical menopause JAD/BSO in late 20s, no HRT Hepatitis C 02/14/2016 labwork: undetectable RNA level Surgical History Status post total hysterectomy and bilateral salpingo-oophorectomy (~2006) noncancerous reasons Status post left foot surgery (10/2022) Left fourth metatarsal head excision for chronic ulcer, osteomyelitis ([facility]amia Vidales, [facility]) Status post section (~2003) EGD (04/16/16) Dr. Ferrer Family History Mother , 46yo due to kidney & liver failure due to alcohol Substance use disorder Alcohol use disorder Father , 62yo from ALS Substance use disorder Alcohol use disorder ALS (amyotrophic lateral sclerosis) Grandmother Colon cancer Paternal Paternal Uncle Cardiac arrest Substance use disorder Alcohol and Pain Medication Abuse Social History Smoking/Tobacco Use Status: Current every day Tobacco Type: cigarettes Smoking packs per day: 1 Smoking cigarettes per day: 20.0 Tobacco: How many years used: 33 Quit status: considering quitting Smoking risk assessment performed?: Yes Alcohol Intake: never Drug use: Occasionally Substance use type: former substance user and marijuana Details: Pt. 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 Pets and animals: Yes (1 dog, 4 cats) Pets and animals: cat(s) and dog(s) Sexually active: Yes Do you think of yourself as: straight/heterosexual Current gender identity: female Other: 09/2022: pt reports she is engaged What is your relationship status?: How often do you talk on the phone with friends or family?: three or more times per week How often do you get together with friends or relatives?: once per week How often do you attend confucianist or jehovah's witness services?: decline to answer Do you belong to any clubs or organized social groups?: no Panel score (0-1 are the most socially isolated patients): 2 What type of physical activity do you participate in: none Duration: decline to answer Frequency: decline to answer Seatbelt use: always Helmet use: No (No reason to wear one) Drive 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
[2024-06-07 22:32] LABS: Abs Immature Grans 0.05 10^3/uL (0.0-0.06); Absolute Basophil Count 0.04 10^3/uL (0.0-0.2); Absolute Lymphocyte Count 2.62 10^3/uL (1.2-3.4); Absolute Monocyte Count 0.76 10^3/uL (0.1-0.8); Basophils % 0.3 %; Eosinophils % 0.3 %; HGB 15.4 g/dL (11.2-15.7); Immature Grans % 0.3 %; Lymphocytes % 18.3 %; MCH 24.9 pg (27.0-33.0); MCHC 31.4 % (32.0-36.0); MCV 79 fL (80-95); Monocytes % 5.3 %; Neutrophils % 75.5 %; Platelet Count 214 10^3/uL (130-400); RBC 6.19 10^6/uL (3.93-5.22); RDW 14.9 % (11.7-14.6); RDW-SD 42.4 fL; WBC 14.34 10^3/uL (4.4-10.8)
[2024-06-07] MEDS: Ondansetron 4 MG/2 ML VIAL IVP (22:42)
[2024-06-07] MEDS: Ketorolac 15 MG/ML VIAL IVP (22:42)
[2024-06-07] MEDS: Lactated Ringers 1,000 ML 1000 ML IV (22:42)
--- NOTE | 2024-06-07 22:50 | DI.CT_ITS ---
Exam(s) CT ABDOMEN PELVIS WO EXAM: CT ABDOMEN PELVIS WO CLINICAL HISTORY: epigastric pain, vomiting, hx of constipation. TECHNIQUE: Imaging Protocol: Axial computed tomography images with coronal and sagittal reformatted images were created and reviewed CONTRAST MATERIAL: Intravenous: none Oral: None COMPARISON: CT CT ABDOMEN PELVIS WO from 05/24/2022 FINDINGS: VISUALIZED LUNG BASES: No nodules nor pleural effusions evident. ABDOMEN: There is no ascites. LIVER: There are areas of abnormal hypodensity in both lobes of the liver which were not evident 2 ye ars ago and which are probably consistent with atypical fatty parenchymal change. GALLBLADDER/BILIARY: There is hyperdense bile and multiple tiny calculi in the gallbladder lumen. Th e gallbladder does not appear edematous and there is no pericholecystic fluid. The CBD is not dilate d PANCREAS: There is diffuse peripancreatic streaking consistent with acute pancreatitis. Pancreatic d uct is not dilated. There is no evidence of distinct pancreatic mass. No formed peripancreatic flui d collection evident. No obvious pancreatic necrosis evident on this noninfused study. SPLEEN: Upper normal size. ADRENALS: There are no significant adrenal masses. KIDNEYS:No cysts evident. No solid renal masses. No calculi nor hydronephrosis. . ABDOMINAL AORTA: Abdominal aorta is not enlarged. LYMPH NODES: There is no retroperitoneal nor paraaortic adenopathy. ABDOMINAL WALL: No evidence of significant anterior abdominal wall nor inguinal hernia. GI: There is no evidence of bowel obstruction, free air, nor abscess. PELVIS: LYMPH NODES: There is no intrapelvic nor inguinal adenopathy. GI: No evidence of appendicitis.No evidence of sigmoid diverticulitis. URINARY BLADDER: No calculi nor obvious masses evident REPRODUCTIVE: Uterus is surgically absent. No abnormal adnexal masses nor free fluid in the pelvis. OSSEOUS: No significant osseous lesions. IMPRESSION: 1. Findings are consistent with acute pancreatitis. 2. There is cholelithiasis without evidence of obvious acute cholecystitis. However, please note justyna t the gallstones in the gallbladder lumen are tiny and therefore is conceivable that 1 or more of the se tiny calculi has descended down the CBD resulting in the pancreatitis. The CBD is not appear dila kena and there is no obvious radiopaque calculus seen in the CBD on these CT images. Nevertheless, re commend follow-up MRCP as the next step 3. Are areas of geographic abnormal hypodensity evident in the adjacent left and right hepatic lobes which were not evident on CT scan of May 2022. Probably representing atypical fatty parenchyma l change but cannot exclude other etiology. RADIATION DOSE DELIVERED: 948.06mGy.cm Total DLP DATA REPOSITORY: All CT scans at this facility are submitted to the National Radiology Data Registry (NRDR) Dose Index Registry (DIR) with the [employer] ([employer]). RADIATION OPTIMIZATION: All CT scans at this facility use at least one of these dose optimization te chniques: automated exposure control; mA and/or kV adjustment per patient size (includes targeted exa ms where dose is matched to clinical indication); or iterative reconstruction.
[2024-06-07 22:52] LABS: ALT 25 U/L (14-59); AST 18 U/L (15-37); Albumin 3.7 g/dL (3.4-5.0); Alkaline Phosphatase 176 U/L (46-116); BUN 22 mg/dL (7-18); Bilirubin, Total 0.57 mg/dL (0.2-1.0); CREATININE 1.3 mg/dL (0.55-1.02); Calcium 10.2 mg/dL (8.5-10.1); Chloride 94 mmol/L (98-107); Estimated GFR 51.68 (mL/min/1.73m2); Glucose 376 mg/dL (74-106); Magnesium 1.8 mg/dL (1.8-2.4); Sodium 134 mmol/L (136-145); Total Protein 8.1 g/dL (6.4-8.2)
[2024-06-07 23:09] LABS: Absolute Eosinophil Count 0.04 10^3/uL (0.0-0.7); Absolute Neutrophil Count 10.83 10^3/uL (1.2-6.7); Diff Comment RBC Morph Reviewed; RBC Morphology Normal
[2024-06-07 23:14] LABS: Lipase > 375 U/L (16-77)
[2024-06-07 23:24] VITALS: BP 115/76; PULSE 86; RESP 20; TEMP 36.7; O2SAT 93
--- NOTE | 2024-06-08 00:26 | DI.VRAD_ITS ---
PROCEDURE INFORMATION: Exam: CT Abdomen And Pelvis Without Contrast Exam date and time: 06/07/2024 10:43 PM Age: 43 years old Clinical indication: Abdominal pain; Epigastric pain, Vomiting, HX constipation TECHNIQUE: Imaging protocol: Computed tomography of the abdomen and pelvis without contrast. Radiation optimization: All CT scans at this facility use at least one of these dose optimization techniques: automated exposure control; mA and/or kV adjustment per patient size (includes targeted exams where dose is matched to clinical indication); or iterative reconstruction. COMPARISON: CT ABDOMEN PELVIS WO 05/24/2022 2:43 AM FINDINGS: Lungs: No acute infiltrate in either lung base. Liver: Areas of geographic fatty infiltration within the anterior liver. Gallbladder and biliary ducts: Cholelithiasis, otherwise normal gallbladder. No biliary tract dilatation. Pancreas: Diffuse peripancreatic stranding indicating acute pancreatitis. No pancreatic ductal dilatation. No pseudocyst formation. Spleen: Normal. No splenomegaly. Adrenal glands: Normal. No mass. Kidneys and ureters: No hydronephrosis. No calcified renal or ureteral stones. No perinephric stranding or perinephric fluid. Stomach and bowel: Unremarkable. No obstruction. No mucosal thickening. Moderate amount of stool in the majority of the colon. Appendix: Normal appendix. Intraperitoneal space: No free air. No significant fluid collection. Vasculature: The abdominal aorta is normal in caliber without aneurysm. Lymph nodes: No enlarged lymph nodes. Urinary bladder: Unremarkable as visualized. Reproductive: Prior hysterectomy. Bones/joints: Unremarkable for patient age. Soft tissues: Unremarkable. IMPRESSION: 1. Diffuse peripancreatic stranding indicating acute pancreatitis. 2. No bowel obstruction. 3. Cholelithiasis, otherwise normal gallbladder. No biliary tract dilatation. 4. Areas of geographic fatty infiltration within the anterior liver. Dictated and Authenticated by: Get Nelson MD. Ordering:FERNANDO Lopez MD
--- NOTE | 2024-06-08 08:18 | W.ED.FU ---
Date of service: 06/08/24 Time of Service: 08:18 Follow Up Plan: Received a phone call from this patient requesting results of CT scan. On chart review it appears that the patient came in with epigastric abdominal pain, lipase elevation concerning for pancreatitis, but left the ED prior to results of the CT scan being available. I reviewed the CT scan, and radiology read confirms peripancreatic stranding concerning for pancreatitis, with evidence of cholelithiasis without cholecystitis. The patient reports that she has had ongoing epigastric pain, nausea that makes it difficult to maintain her oral intake, and I did recommend that she return to the emergency department for reevaluation and admission for her pancreatitis. The patient is amenable to this plan of care and will present to the ED for evaluation. The patient had the opportunity to have all questions answered via phone. Aspen Perry MD
== END 2024-06-07 23:44 | disposition home or self-care (01) ==
PROVIDERS: Emergency Provider Student in an Organized Health Care Education/Training Program; PCP Nurse Practitioner Adult Health
DX: K85.90 Acute pancreatitis without necrosis or infection, unspecified (principal); F17.210 Nicotine dependence, cigarettes, uncomplicated; E11.9 Type 2 diabetes mellitus without complications; Z79.4 Long term (current) use of insulin; Z79.84 Long term (current) use of oral hypoglycemic drugs
CPT/HCPCS: 36415; 80053; 83690; 96361; 96374; 96375; 99285; 74176; 83735; 85025; 99284; J1885; J2405

== ENCOUNTER 2024-06-08 11:46 | Inpatient (IN) | payer OTHER, SELFPAY ==
[2024-06-08 11:50] VITALS: BP 123/81; PULSE 93; RESP 20; TEMP 36.8; O2SAT 92
[2024-06-08] MEDS: HYDROmorphone 2 MG/ML SYR 0.5 MG IVP (12:52)
[2024-06-08] MEDS: Lactated Ringers 1,000 ML 1000 ML IV (12:52)
[2024-06-08] MEDS: Ondansetron 4 MG/2 ML VIAL IVP ×2 (12:52→23:43)
[2024-06-08] MEDS: Acetaminophen 500 MG TAB 1000 MG PO (13:59)
--- NOTE | 2024-06-08 14:12 | W.PC.ACHO ---
Registration Status: Primary Language: Preferred Language: ED Information & Data Chief Complaint Abd Prob 06/08/24 11:50 Triage Note presented yesterday evening 06/08/24 11:[address] was called back for [address] scan indicating pancreatitis Medical / Surgical History (Last Reviewed 06/07/24 @ 22:32 by John Mayorga DO) Chronic fatigue (07/19/15) Osteomyelitis Dyspareunia in female (07/09/17) Punctate keratitis of both eyes Ulcer of foot due to secondary diabetes Umbilical hernia (03/11/18) Premature surgical menopause Hepatitis C (Last Reviewed 06/07/24 @ 22:32 by John Mayorga DO) Status post total hysterectomy and bilateral salpingo-oophorectomy (~2006) Status post left foot surgery (10/2022) Status post section (~2003) EGD (04/16/16) Most Recent Vital Signs Temperature 36.8 C 06/08/24 11:50 Temperature Source Oral 06/08/24 11:50 Pulse 93 H 06/08/24 11:50 Respiratory Rate 20 06/08/24 11:50 Blood Pressure 123/81 06/08/24 11:50 Pulse Oximetry 92 06/08/24 11:50 Oxygen Delivery Method Room Air 06/08/24 11:50 Oxygen Flow Rate 0 06/08/24 11:50 Pain Level 9 06/08/24 11:50 Allergies Penicillins Allergy (Severe, Verified 06/08/24 11:53) lip and facial swelling lamotrigine (From Lamictal) Allergy (Unknown, Verified 06/08/24 11:53) Skin Rash clindamycin Adverse Reaction (Severe, Verified 06/08/24 11:53) Nausea & vomiting aspirin Adverse Reaction (Intermediate, Verified 06/08/24 11:53) nausea/pain IV IV Catheter Type [Left Saline Lock Antecubital] IV Catheter Gauge [Left 20 Antecubital] Diet Orders Category Date Time Status Nothing Per Oral [DIET] Nutrition 06/08/24 Breakfast Active Diagnostics 06/08/24 06/08/24 Range/Units 13:20 13:19 WBC Pending RBC Pending Hgb Pending Hct Pending MCV Pending MCH Pending MCHC Pending RDW Pending Plt Count Pending MPV Pending Immature Gran % Pending Neutrophils % Pending Lymphocytes % Pending Monocytes % Pending Eosinophils % Pending Basophils % Pending Absolute Neutrophils Pending Absolute Lymphocytes Pending Absolute Monocytes Pending Absolute Eosinophils Pending Absolute Basophils Pending PT Pending INR Pending Sodium Pending Potassium Pending Chloride Pending Carbon Dioxide Pending Anion Gap Pending BUN Pending Creatinine Pending Est GFR (CKD-EPI 2020) Pending Glucose Pending Hemoglobin A1c Pending Calcium Pending Total Bilirubin Pending GGT Pending AST Pending ALT Pending Alkaline Phosphatase Pending C-Reactive Protein Pending Total Protein Pending Albumin Pending Lipase Pending [id number] Documentation Fingerstick Glucose Start: 06/08/24 11:56 Freq: Status: Complete Protocol: Activity Type Activity Date Activity User E-sign Co-sign Detail Recorded Client Recorded Date Recorded By Document 06/08/24 11:56 [id number] 06/08/24 11:56 Intake and Output - 24 Hour Total 06/08/24 11:46 thru 06/08/24 14:00 Intake Total 1000 Balance 1000 Weight 106 kg Intake: IV 1000 v v v v v v v v v Sending and/or Receiving Nurses: Please use comment section below to note any information pertinent to the patient hand-off not included above. Information / Comments: Report taken from [employer] PR[employer]UCER Cassandra. Pt is AO x 4. ,smoker, has nicotine patch on rt. arm.. Pt is anxious asking for pain meds as soon entered the room. All questions answered. Report received from:
--- NOTE | 2024-06-08 14:28 | W.ED.GENAD ---
Discharge Plan Disposition Patient Disposition: Admit to [facility] Condition: Stable Discharge Details Chief Complaint: Abd Prob Clinical Impression: Acute pancreatitis, Cholelithiasis Admit Date/Time: 06/08/24 13:26 Admit Provider: Molly Brito Attending Provider: Molly Brito Primary Care Provider: Lorena Mann ED Provider: Aspen Perry Discharge Data Discharge Date/Time-TO BE ENTERED AT DEPARTURE: 06/08/24 14:17 HPI General Mode of arrival: ambulatory. Date/Time Provider Initiated Documentation: 06/08/24 12:23. Limitations to Documentation: no limitations. Information obtained by: patient, family and old records reviewed. HPI Narrative: HPI: This is a 43-year-old female patient with a history of type 2 diabetes, hypertension, hyperlipidemia, cirrhosis, nicotine use disorder who is presenting for evaluation of pancreatitis. The patient was seen last night for epigastric abdominal pain and nausea with vomiting, had an elevated lipase, concerning for pancreatitis, had a CT scan done but left this facility before the CT scan was resulted. I called the patient this morning with the results, which were consistent with pancreatitis as well as cholelithiasis without cholecystitis. For this reason I recommended that the patient return for care given her ongoing nausea and pain. The patient reports that her symptoms have not changed since her discharge from this hospital last night. She has tried to tolerate some clear liquids with middling success, has had no fevers, chills, shortness of breath, or chest pain. I did review the laboratory studies obtained during her visit last night, which show leukocytosis to 14, no anemia or thrombocytopenia. Chemistry panel shows mild elevation in her BUN and creatinine to 22 and 1.3 respectively, and elevated blood glucose of 397, no elevated bilirubin, mildly elevated alkaline phosphatase and a lipase greater than 375. Exam: Gen: Awake and alert, Appears uncomfortable HEENT: Non-icteric sclera Neck: Supple Lungs: No apparent respiratory distress, normal respiratory effort. CV: Appears well perfused Abdomen: Non-distended, soft, tenderness in a generalized distribution but worst in the epigastric region with guarding, no rigidity or rebound MSK: Moves 4 extremities without apparent limitation in ROM Skin: Visualized skin without rashes, cyanosis. Neuro: Normal Gait, no obvious focal deficits or facial asymmetry. Speaks in full, clear sentences. Psych: Appropriate for situation. MDM: This is a 43-year-old female patient presenting for evaluation after CT imaging resulted positive for pancreatitis. I am most concerned for gallstone pancreatitis, my differential certainly also concerns considered EtOH, hypertriglyceridemia. The patient has no evidence on her laboratory studies or my review of her CT scan to suggest choledocholithiasis, necrotizing pancreatitis,. Given the thorough workup performed less than 24 hours ago I do not see any indication at this time to proceed with repeat laboratory studies or advanced imaging. I did provide the patient with a liter of IV fluids, medications for management of pain and nausea, and she was able to tolerate a small amount of clear liquids. ED Course: Following initial symptom management I reached out to our general surgeon who is graciously accepted this patient for admission to our hospital for further workup and management of her pancreatitis. Patient did receive a nicotine patch while under my care, otherwise remained hemodynamically appropriate and with improved symptoms, transferred to the floor without incident. Aspen Perry MD Related Data Home Medications ?Medication ?Instructions ?Recorded ?Confirmed methadone 10 mg/mL oral concentrate 77 mg PO DAILY 02/12/19 06/08/24 atorvastatin 10 mg tablet 10 mg PO QHS #90 tabs 09/03/19 06/08/24 acetaminophen 500 mg tablet 500 - 1,000 mg (1 - 2 x 500 mg) PO 09/24/19 06/08/24 Q8H PRN fever or pain #180 tab-caps alcohol swabs (Alcohol Pads) 1 pad topical QID #400 ea 10/25/22 06/08/24 lorazepam 0.5 mg tablet 0.5 mg PO DAILY PRN 03/13/23 06/08/24 pen needle, diabetic 32 gauge x #100 ea 06/30/23 06/08/24 5/32 (BD Ultra-Fine Yamini Pen Needle) blood-glucose meter #1 ea 08/28/23 06/08/24 lancets #400 ea 08/28/23 06/08/24 blood-glucose transmitter (Dexcom #3 ea 09/25/23 06/08/24 G6 Transmitter device) clonidine HCl 0.2 mg tablet 0.2 mg PO HS 11/21/23 06/08/24 insulin aspart U-100 100 unit/mL 15 unit (0.15 mL) subcut AC #15 mL 01/05/24 06/08/24 (3 mL) subcutaneous pen (Novolog FlexPen U-100 Insulin aspart) naloxone 4 mg/actuation nasal 4 mg intranasal Q2M PRN opioid 02/13/24 06/08/24 spray (Narcan) overdose #2 ea insulin degludec 100 unit/mL (3 140 unit subcut DAILY 03/05/24 06/08/24 mL) subcutaneous pen (Tresiba FlexTouch U-100 insulin) empagliflozin 25 mg tablet 25 mg PO DAILY AM #90 tab-caps 04/05/24 06/08/24 (Jardiance) 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 04/12/24 06/08/24 #90 tab-caps blood sugar diagnostic (Blood #400 ea 04/26/24 06/08/24 Glucose Test strips) blood-glucose sensor (Dexcom G6 #3 ea 04/26/24 06/08/24 Sensor device) magnesium oxide 400 mg (241.3 mg 400 mg PO BID #180 tabs 04/26/24 06/08/24 magnesium) tablet mirtazapine 15 mg tablet 15 mg PO HS 05/03/24 06/08/24 omeprazole 40 mg capsule,delayed 40 mg PO DAILY #90 caps 05/20/24 06/08/24 release nystatin 100,000 unit/gram topical 1 applic topical BID PRN fungal 05/25/24 06/08/24 powder skin infection #30 grams sumatriptan succinate 100 mg tablet 100 mg PO ONCE PRN migraine 05/25/24 06/08/24 headache #30 tab-caps albuterol sulfate 90 mcg/actuation 1 - 2 puff inhalation Q4-6H PRN ##1 05/31/24 06/08/24 aerosol inhaler celecoxib 200 mg capsule See Rx Instructions .Route 05/31/24 06/08/24 .COMPLEX #60 caps fluticasone 250 mcg-salmeterol 50 1 inh inhalation BID #60 ea 05/31/24 06/08/24 mcg/dose blistr powdr for inhalation (Advair Diskus) gabapentin 300 mg capsule 300 mg PO HS PRN back pain #60 caps 05/31/24 06/08/24 glucagon 1 mg/0.2 mL subcutaneous 1 mg (0.2 mL) subcut ONCE #0.4 mL 05/31/24 06/08/24 auto-injector (Randal Espinozaen 2-Pack) ipratropium 0.5 mg-albuterol 3 mg 3 ml inhalation QID PRN wheezing 05/31/24 06/08/24 (2.5 mg base)/3 mL nebulization #180 mL soln methocarbamol 500 mg tablet 1,000 mg (2 x 500 mg) PO HS PRN 05/31/24 06/08/24 muscle spasm #90 tabs metoclopramide HCl 10 mg tablet 10 mg PO TID PRN 05/31/24 06/08/24 ondansetron 8 mg disintegrating 8 mg PO BID PRN nausea and 05/31/24 06/08/24 tablet vomiting #60 tabs pregabalin 200 mg capsule 200 mg PO TID #270 tab-caps 05/31/24 06/08/24 fremanezumab-vfrm 225 mg/1.5 mL 225 mg subcut QMONTH 06/07/24 06/08/24 subcutaneous auto-injector (Ajovy) onabotulinumtoxinA 100 unit 300 unit IM ONCE 06/07/24 06/08/24 solution for injection (Botox) dextroamphetamine-amphetamine 20 20 mg PO TID PRN 06/08/24 06/08/24 mg tablet hydroxyzine pamoate 50 mg capsule 50 mg PO BID PRN 06/08/24 06/08/24 lurasidone 80 mg tablet 80 mg PO DAILY 06/08/24 06/08/24 Previous Rx's ?Medication ?Instructions ?Recorded atorvastatin 10 mg tablet 10 mg PO QHS #90 tabs 09/03/19 acetaminophen 500 mg tablet 500 - 1,000 mg (1 - 2 x 500 mg) PO 09/24/19 Q8H PRN fever or pain #180 tab-caps alcohol swabs (Alcohol Pads) 1 pad topical QID #400 ea 10/25/22 pen needle, diabetic 32 gauge x #100 ea 06/30/23 (BD Ultra-Fine Yamini Pen Needle) blood-glucose meter #1 ea 08/28/23 lancets #400 ea 08/28/23 blood-glucose transmitter (Dexcom #3 ea 09/25/23 G6 Transmitter device) insulin aspart U-100 100 unit/mL 15 unit (0.15 mL) subcut AC #15 mL 01/05/24 (3 mL) subcutaneous pen (Novolog FlexPen U-100 Insulin aspart) naloxone 4 mg/actuation nasal 4 mg intranasal Q2M PRN opioid 02/13/24 spray (Narcan) overdose #2 ea empagliflozin 25 mg tablet 25 mg PO DAILY AM #90 tab-caps 04/05/24 (Jardiance) 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 04/12/24 #90 tab-caps blood sugar diagnostic (Blood #400 ea 04/26/24 Glucose Test strips) blood-glucose sensor (Dexcom G6 #3 ea 04/26/24 Sensor device) magnesium oxide 400 mg (241.3 mg 400 mg PO BID #180 tabs 04/26/24 magnesium) tablet omeprazole 40 mg capsule,delayed 40 mg PO DAILY #90 caps 05/20/24 release nystatin 100,000 unit/gram topical 1 applic topical BID PRN fungal 05/25/24 powder skin infection #30 grams sumatriptan succinate 100 mg tablet 100 mg PO ONCE PRN migraine 05/25/24 headache #30 tab-caps albuterol sulfate 90 mcg/actuation 1 - 2 puff inhalation Q4-6H PRN ##1 05/31/24 aerosol inhaler celecoxib 200 mg capsule See Rx Instructions .Route 05/31/24 .COMPLEX #60 caps fluticasone 250 mcg-salmeterol 50 1 inh inhalation BID #60 ea 05/31/24 mcg/dose blistr powdr for inhalation (Advair Diskus) gabapentin 300 mg capsule 300 mg PO HS PRN back pain #60 caps 05/31/24 glucagon 1 mg/0.2 mL subcutaneous 1 mg (0.2 mL) subcut ONCE #0.4 mL 05/31/24 auto-injector (Gvoke HypoPen 2-Pack) ipratropium 0.5 mg-albuterol 3 mg 3 ml inhalation QID PRN wheezing 05/31/24 (2.5 mg base)/3 mL nebulization #180 mL soln methocarbamol 500 mg tablet 1,000 mg (2 x 500 mg) PO HS PRN 05/31/24 muscle spasm #90 tabs ondansetron 8 mg disintegrating 8 mg PO BID PRN nausea and 05/31/24 tablet vomiting #60 tabs pregabalin 200 mg capsule 200 mg PO TID #270 tab-caps 05/31/24 Allergies Allergy/AdvReac Type Severity Reaction Status Date / Time Penicillins Allergy Severe lip and Verified 06/08/24 11:53 facial swelling lamotrigine (From Lamictal) Allergy Unknown Skin Rash Verified 06/08/24 11:53 clindamycin AdvReac Severe Nausea & Verified 06/08/24 11:53 vomiting aspirin AdvReac Intermediate nausea/pain Verified 06/08/24 11:53 General Stated Complaint: Abd Prob CARLOS: 3 Course Vital Signs Vital signs: Vital Signs Temperature 36.8 C 06/08/24 11:50 Pulse 93 H 06/08/24 11:50 Respiratory Rate 20 06/08/24 11:50 Blood Pressure 123/81 06/08/24 11:50 Pulse Oximetry 92 06/08/24 11:50 Temperature 36.8 C 06/08/24 11:50 Temperature Source Oral 06/08/24 11:50 Pulse 93 H 06/08/24 11:50 Respiratory Rate 20 06/08/24 11:50 Blood Pressure 123/81 06/08/24 11:50 Pulse Oximetry 92 06/08/24 11:50 Oxygen Delivery Method Room Air 06/08/24 11:50 Oxygen Flow Rate 0 06/08/24 11:50 Pain Level 9 06/08/24 11:50 Medical Decision Making Quality:SDOH Health Related Social Needs: No Data to Display PFSH All Active Problems (Updated 06/08/24 @ 14:33 by Aspen Perry MD) Cholelithiasis (Acute) Acute pancreatitis (Acute) Corneal abrasion (Acute) Obstructive sleep apnea of adult (Acute) [facility] 12/23/23 Muscle spasm of left lower extremity (Acute) Muscle spasm of back (Acute) Diabetic cataract of right eye (Acute) Ulcer of right foot limited to breakdown of skin (Acute 04/16/23) [facility] Ulcer of left foot, limited to breakdown of skin (Acute 04/16/23) [facility] Iron deficiency (Acute) 03/2023 iron studies indicating deficiency (NOT anemic) Migraine (Chronic) [facility] Chronic constipation (Chronic) [facility] Opioid use disorder (Chronic) MAT with methadone Type 2 diabetes mellitus, with long-term current use of insulin (Chronic) With neuropathy & retinopathy (left, mild) Obesity (Chronic) Cirrhosis of liver (Chronic) [facility] Asthma (Chronic) Tobacco use disorder (Chronic) Started smoking age 9 Poorly controlled type 2 diabetes mellitus (Chronic 03/23/18) Polypharmacy (Chronic 12/14/15) Mild nonproliferative diabetic retinopathy associated with type 2 diabetes mellitus (Chronic 01/22/16) Mental health disorder (Chronic) Pt reports being diagnosed with bipolar disorder, disassociative disorder, anxiety, & multiple personality disorder Hypomagnesemia (Chronic 09/30/16) Hyperlipidemia (Chronic 09/30/16) 10-year ASCVD risk = unable to calculate due to not being age 40+ however dx T2DM, so Rx for statin 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 Jimenez [facility] 2023: [facility] GI Depressive disorder (Chronic 10/31/14) ADMISSION SUICIDAL THOUGHTS 06/13/14 OD ATTEMPTS IN PAST Chronic nausea (Chronic) EGD 04/16/16 Dr. 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) Medical History Chronic fatigue (07/19/15) Osteomyelitis Dyspareunia in female (07/09/17) Punctate keratitis of both eyes Ulcer of foot due to secondary diabetes Umbilical hernia (03/11/18) 03/17/2018: [facility] GI Premature surgical menopause JAD/BSO in late 20s, no HRT Hepatitis C 02/14/2016 labwork: undetectable RNA level Surgical History Status post total hysterectomy and bilateral salpingo-oophorectomy (~2006) noncancerous reasons Status post left foot surgery (10/2022) Left fourth metatarsal head excision for chronic ulcer, osteomyelitis ([facility]/Tamia Vidales DPM) Status post section (~2003) EGD (04/16/16) Dr. Ferrer Family History Mother , 46yo due to kidney & liver failure due to alcohol Substance use disorder Alcohol use disorder Father , 62yo from ALS Substance use disorder Alcohol use disorder ALS (amyotrophic lateral sclerosis) Grandmother Colon cancer Paternal Paternal Uncle Cardiac arrest Substance use disorder Alcohol and Pain Medication Abuse Social History Smoking/Tobacco Use Status: Current every day Tobacco Type: cigarettes Smoking packs per day: 1 Smoking cigarettes per day: 20.0 Tobacco: How many years used: 33 Quit status: considering quitting Smoking risk assessment performed?: Yes Alcohol Intake: never Drug use: Occasionally Substance use type: former substance user and marijuana Details: Pt. 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 Pets and animals: Yes (1 dog, 4 cats) Pets and animals: cat(s) and dog(s) Sexually active: Yes Do you think of yourself as: straight/heterosexual Current gender identity: female Other: 09/2022: pt reports she is engaged What is your relationship status?: How often do you talk on the phone with friends or family?: three or more times per week How often do you get together with friends or relatives?: once per week How often do you attend pentecostal or latter-day services?: decline to answer Do you belong to any clubs or organized social groups?: no Panel score (0-1 are the most socially isolated patients): 2 What type of physical activity do you participate in: none Duration: decline to answer Frequency: decline to answer Seatbelt use: always Helmet use: No (No reason to wear one) Drive 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
[2024-06-08] MEDS: MORPHine 2 MG/ML SYR IVP ×4 (14:29→23:23)
[2024-06-08] MEDS: ACETAMINOPHEN 1,000 MG/100 ML BTL 400 MG IVPB ×2 (14:32→20:21)
[2024-06-08] MEDS: Lactated Ringers 1,000 ML 75 ML IV (14:32)
[2024-06-08] MEDS: Enoxaparin 40 MG/0.4 ML SYR SC (14:33)
[2024-06-08 14:47] VITALS: BP 127/79; PULSE 84; RESP 16; TEMP 36.6; O2SAT 96
--- NOTE | 2024-06-08 15:06 | PHA.REVIEW2 ---
Pharmacy Admission Review Admission Clinical Review Admission Pharmacy Review: Penicillins Allergy (Severe, Verified 06/08/24 11:53) lip and facial swelling lamotrigine (From Lamictal) Allergy (Unknown, Verified 06/08/24 11:53) Skin Rash clindamycin Adverse Reaction (Severe, Verified 06/08/24 11:53) Nausea & vomiting aspirin Adverse Reaction (Intermediate, Verified 06/08/24 11:53) nausea/pain Resuscitation Status Full Code Height 5 ft 4 in Weight 106 kg Pharmacy Admission Review Renal Dosing Medications needing adjustments: Reviewed (CrCl 64.86 mL/min) List of meds needing interventions: Current medications are okay Anticoagulation DVT Prophylaxis: Reviewed Medications: Enoxaparin (40mg daily) Opiate Usage Evaluate Pain Scale/Pains Meds: Reviewed (PRN morphine IVP - 1 dose given) Scheduled Bowel Reg ordered if on Opiates?: No Relevant Labs Electrolytes, C-Reactive P, ESR: Reviewed (labs pending) DM Control DM Control: Finger Stick Blood Glucose 356 1156 Finger Stick Blood Glucose 356 1155 Finger Stick Blood Glucose 356 1155 DM Control: Reviewed Insulin Dosing, Diabetic Medication: Has order for SS insulin. A1c pending. Cardiac Review BP, HR, EF%: Reviewed (BP WNL, HR 93) QTc Review QTc: Reviewed (435 from 11/21/23 - most recent EKG on file) IV to PO Switch IV Medications: Reviewed (NPO at this time) Home Meds Home Med List reviewed: Reviewed Relevent Home Meds Not ordered & why?: None ordered at this time, patient is NPO with potential surgery. Will reach out to provider if orders not put in once patient is able to take meds PO. Current Meds Current Medication Order Review: Intervened Comments: Changed timing of orders to be on even hour per pharmacy protocol Pharmacy Antibiotic Review Comments: Patient is on levofloxacin 750mg IV q24h for pancreatitis. Labs are pending, no cultures at this time.
[2024-06-08 15:33] VITALS: BP 111/77; PULSE 80; RESP 16; TEMP 35.9; O2SAT 94
--- NOTE | 2024-06-08 15:46 | HPE_ITS ---
Date of service: 06/08/24 Time of Service: 15:46 Assessment and Plan Assessment and plan (1) Polypharmacy: Status: Chronic (2) Mental health disorder: Status: Chronic (3) Opioid use disorder: Status: Chronic (4) Hyperlipidemia: Status: Chronic Qualifiers: Hyperlipidemia type: unspecified Qualified Code(s): E78.5 - Hyperlipidemia, unspecified (5) Poorly controlled type 2 diabetes mellitus: Status: Chronic (6) Type 2 diabetes mellitus, with long-term current use of insulin: Status: Chronic Qualifiers: Diabetes mellitus complication status: with hyperglycemia Qualified Code(s): E11.65 - Type 2 diabetes mellitus with hyperglycemia; Z79.4 - retirement (current) use of insulin (7) Obesity: Status: Chronic (8) Cortical age-related cataract, left eye: Status: Resolved (9) Mild nonproliferative diabetic retinopathy associated with type 2 diabetes mellitus: Status: Chronic (10) Gastroparesis: Status: Chronic (11) Cirrhosis of liver: Status: Chronic Qualifiers: Ascites presence: unspecified Hepatic cirrhosis type: unspecified hepatic cirrhosis Qualified Code(s): K74.60 - Unspecified cirrhosis of liver (12) Acute pancreatitis: Status: Acute (13) Cholelithiasis: Status: Acute (14) Acute gallstone pancreatitis: Status: Acute Assessment and plan: -pain management. WHich is going to be challenging give her use of methadone. ALso need to confirm this dosing w/ BAART -hydration/NPO and electrolyte management trend labs. No signs of CBD stone on CT. /nor is T kim elevated. -supportive care for pancreatitis -will have RT eval for best options for nocturnal hypoxia w/ out formal sleep eval done -Reviewed care w/ RN This document was created with voice activated software and may contain errors. 30 mins spent in direct pt care and 30 in non face to face time (15) Chronic constipation: Status: Chronic (16) Diabetic neuropathy: Status: None Qualifiers: Diabetes mellitus complication detail: diabetic polyneuropathy Diabetes mellitus type: type 2 Qualified Code(s): E11.42 - Type 2 diabetes mellitus with diabetic polyneuropathy (17) Asthma: Status: Chronic Qualifiers: Asthma complication type: with acute exacerbation Asthma persistence: p ersistent Asthma severity: moderate Qualified Code(s): J45.41 - Moderate persistent asthma with (acute) exacerbation (18) Obstructive sleep apnea of adult: Status: Acute (19) Tobacco use disorder: Status: Chronic (20) Ulcer of foot due to secondary diabetes: History of Present Illness Narrative: Patient has a longstanding history of gallstones/gallbladder disease. She has been seen multiple times at [facility]. She was told to stop smoking and lose weight prior to surgery. She has not done that. She was scheduled for a sleep study for LESLIE, but she did not go to the appointment. She comes to the ER complaining of severe abdominal pain and nausea vomiting last night. But she left AMA before the results of the CT were read which did show acute pancreatitis. She did come back to the ER complaining of more pain and vomiting. She is complaining of pain in her entire abdomen. She is drinking a bottle of regular Gatorade. Last A1c was 9.8. I have difficulty interviewing her this afternoon as she keeps falling asleep. She has recently been medicated with narcotics for severe pain. Patient cannot give me much history, most of the history is taken from chart. Review of Systems Unobtainable due to mental status [facility] All Active Problems (Updated 06/08/24 @ 16:13 by Molly Brito, ) Acute gallstone pancreatitis (Acute) Cholelithiasis (Acute) Acute pancreatitis (Acute) Corneal abrasion (Acute) Obstructive sleep apnea of adult (Acute) [facility] 12/23/23 Muscle spasm of left lower extremity (Acute) Muscle spasm of back (Acute) Diabetic cataract of right eye (Acute) Ulcer of right foot limited to breakdown of skin (Acute 04/16/23) [facility] Podiatry Ulcer of left foot, limited to breakdown of skin (Acute 04/16/23) [facility] Podiatry Iron deficiency (Acute) 03/2023 iron studies indicating deficiency (NOT anemic) Migraine (Chronic) [facility]Chronic[facility] (Ch[facility]) MAT with methadone Type 2 diabetes mellitus, with long-term current use of insulin (Chronic) With neuropathy & retinopathy (left, mild) Obesity (Chronic) Cirrhosis of liver (Chronic) [facility] Asthma (Chronic) Tobacco use disorder (Chronic) Started smoking age 9 Poorly controlled type 2 diabetes mellitus (Chronic 03/23/18) Polypharmacy (Chronic 12/14/15) Mild nonproliferative diabetic retinopathy associated with type 2 diabetes mellitus (Chronic 01/22/16) Mental health disorder (Chronic) Pt reports being diagnosed with bipolar disorder, disassociative disorder, anxiety, & multiple personality disorder Hypomagnesemia (Chronic 09/30/16) Hyperlipidemia (Chronic 09/30/16) 10-year ASCVD risk = unable to calculate due to not being age 40+ however dx T2DM, so Rx for statin 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 Jimenez [facility] 2023: [facility] GI Depressive disorder (Chronic 10/31/14) ADMISSION SUICIDAL THOUGHTS 06/13/14 OD ATTEMPTS IN PAST Chronic nausea (Chronic) EGD 04/16/16 Dr. 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) Medical History Chronic fatigue (07/19/15) Osteomyelitis Dyspareunia in female (07/09/17) Punctate keratitis of both eyes Ulcer of foot due to secondary diabetes Umbilical hernia (03/11/18) 03/17/2018: [facility] Premature surgical menopause JAD/BSO in late 20s, no HRT Hepatitis C 02/14/2016 labwork: undetectable RNA level Surgical History Status post total hysterectomy and bilateral salpingo-oophorectomy (~2006) noncancerous reasons Status post left foot surgery (10/2022) Left fourth metatarsal head excision for chronic ulcer, osteomyelitis ([facility]/Tamia Vidales DPM) Status post section (~2003) EGD (04/16/16) Dr. Ferrer Family History Mother , 46yo due to kidney & liver failure due to alcohol Substance use disorder Alcohol use disorder Father , 62yo from ALS Substance use disorder Alcohol use disorder ALS (amyotrophic lateral sclerosis) Grandmother Colon cancer Paternal Paternal Uncle Cardiac arrest Substance use disorder Alcohol and Pain Medication Abuse Social History Smoking/Tobacco Use Status: Current every day Tobacco Type: cigarettes Smoking packs per day: 1 Smoking cigarettes per day: 20.0 Tobacco: How many years used: 33 Quit status: considering quitting Smoking risk assessment performed?: Yes Alcohol Intake: never Drug use: Occasionally Substance use type: former substance user and marijuana Details: Pt. 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 Pets and animals: Yes (1 dog, 4 cats) Pets and animals: cat(s) and dog(s) Sexually active: Yes Do you think of yourself as: straight/heterosexual Current gender identity: female Other: 09/2022: pt reports she is engaged What is your relationship status?: How often do you talk on the phone with friends or family?: three or more times per week How often do you get together with friends or relatives?: once per week How often do you attend rastafari or druze services?: decline to answer Do you belong to any clubs or organized social groups?: no Panel score (0-1 are the most socially isolated patients): 2 What type of physical activity do you participate in: none Duration: decline to answer Frequency: decline to answer Seatbelt use: always Helmet use: No (No reason to wear one) Drive intox or ride w/intox class a regional truck 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 Meds Allergies and Home Medications Allergies Allergy/AdvReac Type Severity Reaction Status Date / Time Penicillins Allergy Severe lip and Verified 06/08/24 11:53 facial swelling lamotrigine (From Lamictal) Allergy Unknown Skin Rash Verified 06/08/24 11:53 clindamycin AdvReac Severe Nausea & Verified 06/08/24 11:53 vomiting aspirin AdvReac Intermediate nausea/pain Verified 06/08/24 11:53 Home Medications ?Medication ?Instructions ?Recorded ?Confirmed ?Type methadone 10 mg/mL oral concentrate 77 mg PO DAILY 02/12/19 06/08/24 History atorvastatin 10 mg tablet 10 mg PO QHS #90 tabs 09/03/19 06/08/24 Rx acetaminophen 500 mg tablet 500 - 1,000 mg (1 - 2 x 500 mg) PO 09/24/19 06/08/24 Rx Q8H PRN fever or pain #180 tab-caps alcohol swabs (Alcohol Pads) 1 pad topical QID #400 ea 10/25/22 06/08/24 Rx lorazepam 0.5 mg tablet 0.5 mg PO DAILY PRN 03/13/23 06/08/24 History pen needle, diabetic 32 gauge x #100 ea 06/30/23 06/08/24 Rx (BD Ultra-Fine Yamini Pen Needle) blood-glucose meter #1 ea 08/28/23 06/08/24 Rx lancets #400 ea 08/28/23 06/08/24 Rx blood-glucose transmitter (Dexcom #3 ea 09/25/23 06/08/24 Rx G6 Transmitter device) clonidine HCl 0.2 mg tablet 0.2 mg PO HS 11/21/23 06/08/24 History insulin aspart U-100 100 unit/mL 15 unit (0.15 mL) subcut AC #15 mL 01/05/24 06/08/24 Rx (3 mL) subcutaneous pen (Novolog FlexPen U-100 Insulin aspart) naloxone 4 mg/actuation nasal 4 mg intranasal Q2M PRN opioid 02/13/24 06/08/24 Rx spray (Narcan) overdose #2 ea insulin degludec 100 unit/mL (3 140 unit subcut DAILY 03/05/24 06/08/24 History mL) subcutaneous pen (Tresiba FlexTouch U-100 insulin) empagliflozin 25 mg tablet 25 mg PO DAILY AM #90 tab-caps 04/05/24 06/08/24 Rx (Jardiance) 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 04/12/24 06/08/24 Rx #90 tab-caps blood sugar diagnostic (Blood #400 ea 04/26/24 06/08/24 Rx Glucose Test strips) blood-glucose sensor (Dexcom G6 #3 ea 04/26/24 06/08/24 Rx Sensor device) magnesium oxide 400 mg (241.3 mg 400 mg PO BID #180 tabs 04/26/24 06/08/24 Rx magnesium) tablet mirtazapine 15 mg tablet 15 mg PO HS 05/03/24 06/08/24 History omeprazole 40 mg capsule,delayed 40 mg PO DAILY #90 caps 05/20/24 06/08/24 Rx release nystatin 100,000 unit/gram topical 1 applic topical BID PRN fungal 05/25/24 06/08/24 Rx powder skin infection #30 grams sumatriptan succinate 100 mg tablet 100 mg PO ONCE PRN migraine 05/25/24 06/08/24 Rx headache #30 tab-caps albuterol sulfate 90 mcg/actuation 1 - 2 puff inhalation Q4-6H PRN ##1 05/31/24 06/08/24 Rx aerosol inhaler celecoxib 200 mg capsule See Rx Instructions .Route 05/31/24 06/08/24 Rx .COMPLEX #60 caps fluticasone 250 mcg-salmeterol 50 1 inh inhalation BID #60 ea 05/31/24 06/08/24 Rx mcg/dose blistr powdr for inhalation (Advair Diskus) gabapentin 300 mg capsule 300 mg PO HS PRN back pain #60 caps 05/31/24 06/08/24 Rx glucagon 1 mg/0.2 mL subcutaneous 1 mg (0.2 mL) subcut ONCE #0.4 mL 05/31/24 06/08/24 Rx auto-injector (Gvoke HypoPen 2-Pack) ipratropium 0.5 mg-albuterol 3 mg 3 ml inhalation QID PRN wheezing 05/31/24 06/08/24 Rx (2.5 mg base)/3 mL nebulization #180 mL soln methocarbamol 500 mg tablet 1,000 mg (2 x 500 mg) PO HS PRN 05/31/24 06/08/24 Rx muscle spasm #90 tabs metoclopramide HCl 10 mg tablet 10 mg PO TID PRN 05/31/24 06/08/24 History ondansetron 8 mg disintegrating 8 mg PO BID PRN nausea and 05/31/24 06/08/24 Rx tablet vomiting #60 tabs pregabalin 200 mg capsule 200 mg PO TID #270 tab-caps 05/31/24 06/08/24 Rx fremanezumab-vfrm 225 mg/1.5 mL 225 mg subcut QMONTH 06/07/24 06/08/24 History subcutaneous auto-injector (Ajovy) onabotulinumtoxinA 100 unit 300 unit IM ONCE 06/07/24 06/08/24 History solution for injection (Botox) dextroamphetamine-amphetamine 20 20 mg PO TID PRN 06/08/24 06/08/24 History mg tablet hydroxyzine pamoate 50 mg capsule 50 mg PO BID PRN 06/08/24 06/08/24 History lurasidone 80 mg tablet 80 mg PO DAILY 06/08/24 06/08/24 History Exam Narrative Exam Narrative: PHYSICAL EXAM GENERAL APPEARANCE: Alert, healthy appearance, oriented, x 3,? in no acute distress HYDRATION: Well hydrated HEAD, EYES, EARS, NECK, THROAT: Head is normocephalic, pupils equal, round, reactive to light and accommodation, ocular movement intact, sclera clear and no jaundice. edentulous LUNGS: normal respiration/normal chest excursion. ?Clear to auscultation bilaterally. ?No wheeze. ?HEART: Regular rate and rhythm. no murmurs ABDOMEN: Morbidly obese. She has had a and a hysterectomy. Postsurgical changes noted. Normal bowel sounds. She is complaining of pain throughout the entire abdomen. Internal organs and hernias would not be palpable secondary to obesity Results Labs 06/10/24 11:44 06/10/24 06:57 Last Vital Signs Temp 35.9 C L 06/08/24 15:33 Pulse 80 06/08/24 15:33 Resp 16 06/08/24 15:33 BP 111/77 06/08/24 15:33 Pulse Ox 94 06/08/24 15:33 Time Spent Time spent with Patient: 55-74 minutes Time was spent: preparing to see the patient(eg.review tests), obtaining and/or reviewing separately otained hiistory, ordering medications,tests, procedures, referring, communicating with other health transitional care nurse, indepentently interpreting results, counseling the patient, care coordination and other
[2024-06-08 16:46] LABS: Abs Immature Grans 0.06 10^3/uL (0.0-0.06); Absolute Eosinophil Count 0.13 10^3/uL (0.0-0.7); Absolute Monocyte Count 0.94 10^3/uL (0.1-0.8); Basophils % 0.3 %; Eosinophils % 0.9 %; HCT 43.4 % (36.0-46.0); HGB 13.5 g/dL (11.2-15.7); Immature Grans % 0.4 %; Lymphocytes % 20.9 %; MCH 24.6 pg (27.0-33.0); MCHC 31.1 % (32.0-36.0); MCV 79 fL (80-95); MPV 11.8 fL (8.0-11.0); Monocytes % 6.3 %; Neutrophils % 71.2 %; Platelet Count 189 10^3/uL (130-400); RBC 5.49 10^6/uL (3.93-5.22); RDW-SD 43.2 fL
[2024-06-08] MEDS: levoFLOXacin 750 MG/150 ML BAG 100 MG IVPB (16:46)
[2024-06-08 16:50] LABS: Absolute Basophil Count 0.04 10^3/uL (0.0-0.2); Absolute Lymphocyte Count 3.11 10^3/uL (1.2-3.4); Absolute Neutrophil Count 10.61 10^3/uL (1.2-6.7)
[2024-06-08 16:56] LABS: INR 1.1 (0.9-1.1); Prothrombin Time 10.9 sec (9.1-11.1)
[2024-06-08 17:01] LABS: C-Reactive Protein 20.92 mg/dL (<or=0.5)
[2024-06-08 17:04] LABS: ALT 19 U/L (14-59); AST 14 U/L (15-37); Albumin 3.1 g/dL (3.4-5.0); Alkaline Phosphatase 145 U/L (46-116); Anion Gap 7.1 mmol/L (3-11); BUN 19 mg/dL (7-18); Bilirubin, Total 0.46 mg/dL (0.2-1.0); CO2 27.9 mmol/L (21.0-32.0); CREATININE 1.1 mg/dL (0.55-1.02); Chloride 98 mmol/L (98-107); Estimated GFR 63.15 (mL/min/1.73m2); GGT 77 U/L (5-55); Glucose 328 mg/dL (74-106); Potassium 3.7 mmol/L (3.5-5.1); Sodium 133 mmol/L (136-145); Total Protein 7.1 g/dL (6.4-8.2)
[2024-06-08 17:05] LABS: Lipase > 375 U/L (16-77)
[2024-06-08 17:09] LABS: Calcium 9.5 mg/dL (8.5-10.1)
[2024-06-08] MEDS: Nicotine 21 MG/24 HR PATCH TD (17:13)
[2024-06-08 17:24] LABS: Hemoglobin A1C 10.6 % (<5.7)
[2024-06-08] MEDS: Insulin Aspart 300 UNITS/3 ML PEN SC (18:08)
[2024-06-08 19:19] VITALS: BP 146/87; PULSE 86; RESP 18; TEMP 36.4; O2SAT 98
[2024-06-08] MEDS: Normal Saline 10 ML VIAL IJ (20:20)
[2024-06-08] MEDS: Pantoprazole 40 MG VIAL IVP (20:20)
[2024-06-08] MEDS: Mirtazapine 15 MG TAB PO (20:21)
[2024-06-08] MEDS: Normal Saline Flush 10 ML SYR IVP ×3 (20:21→23:44)
[2024-06-08] MEDS: cloNIDine 0.1 MG TAB 0.2 MG PO (20:21)
[2024-06-08] MEDS: Budesonide/Formoterol 160/4.5 6 GM 60 PUFF INH IH (20:32)
[2024-06-09] MEDS: MORPHine 2 MG/ML SYR IVP ×9 (02:02→23:39)
[2024-06-09] MEDS: LORazepam 2 MG/ML VIAL 0.5 MG IVP ×2 (02:02→16:29)
[2024-06-09] MEDS: ACETAMINOPHEN 1,000 MG/100 ML BTL 400 MG IVPB ×4 (02:03→19:53)
[2024-06-09] MEDS: Normal Saline Flush 10 ML SYR IVP ×6 (04:37→23:39)
[2024-06-09] MEDS: Ondansetron 4 MG/2 ML VIAL IVP ×4 (04:37→19:51)
[2024-06-09] MEDS: Lactated Ringers 1,000 ML 75 ML IV ×2 (06:27→15:44)
[2024-06-09 07:16] LABS: ALT 16 U/L (14-59); AST 12 U/L (15-37); Albumin 2.7 g/dL (3.4-5.0); Alkaline Phosphatase 136 U/L (46-116); Anion Gap 10.7 mmol/L (3-11); BUN 13 mg/dL (7-18); Bilirubin, Total 0.52 mg/dL (0.2-1.0); CO2 24.3 mmol/L (21.0-32.0); CREATININE 0.8 mg/dL (0.55-1.02); Calcium 9.4 mg/dL (8.5-10.1); Chloride 100 mmol/L (98-107); Estimated GFR 92.54 (mL/min/1.73m2); Glucose 163 mg/dL (74-106); Lipase 195 U/L (16-77); Potassium 4.1 mmol/L (3.5-5.1); Sodium 135 mmol/L (136-145); Total Protein 6.9 g/dL (6.4-8.2)
[2024-06-09 07:23] VITALS: BP 157/85; PULSE 91; RESP 17; TEMP 35.8; O2SAT 94
[2024-06-09] MEDS: Insulin Aspart 300 UNITS/3 ML PEN SC ×3 (07:26→18:05)
[2024-06-09] MEDS: Budesonide/Formoterol 160/4.5 6 GM 60 PUFF INH IH ×2 (08:04→20:18)
[2024-06-09 08:05] VITALS: O2SAT 94
[2024-06-09] MEDS: Pantoprazole 40 MG VIAL IVP (08:11)
[2024-06-09] MEDS: Nicotine 21 MG/24 HR PATCH TD (08:11)
--- NOTE | 2024-06-09 08:11 | RESPIRATORY ---
06/09/2024 Sleep study done, LESLIE on CPAP DME: [facility] O2: None CPAP: 7-12 Mask: Nasal
[2024-06-09] MEDS: Lurasidone 40 MG TAB 80 MG PO (08:12)
[2024-06-09] MEDS: Normal Saline 10 ML VIAL IJ (08:12)
[2024-06-09] MEDS: Methadone Liquid 10 MG/ML 77 MG PO (09:14)
--- NOTE | 2024-06-09 10:22 | INITIAL_ITS ---
Date of service: 06/09/24 Time of Service: 10:22 Care Management Initial Assmt Initial Assessment Reason for Hospitalization: acute gallstone pancreatitis/cholecystitis Functional Status/Living Situation Patient Presentation: Denise was lying in bed, with her eyes closed, when CM met with her early this afternoon. She looked very uncomfortable. She was not very interested in talking, due to her pain. Her , Maxi, was at the bedside as well. Both Denise and her expressed frustration that they had not yet seen the surgeon today, and were not aware of any plan. This CM contacted the surgeon, but had to leave a message. Floor RN was unaware of any plan as well. Town of Residence: [place] Resides with: Spouse (Maxi) Significant Other/Family: Local (Maxi has 2 kids that live in the area, as well as 3 grandchildren. Denise has 2 children and 1 grandchild in the [facility] area.) Natural Supports: and family Employment Status: Disabled (Denise stated that her mental health is the reason for her disability) Instrumental Activities of Daily Living (ADLs): Independent Medications Medication Management: No Issues/Barriers identified (declined any issues) Advance Directives Advance Directives: Do you have an Advance Directive: N 01/18/15 09:25 AD On File at [facility]: N 11/17/14 13:49 Date Asked 06/08/24 06/09/24 11:53 AD Date Reviewed COLST On File at [facility] No 01/12/24 19:57 COLST Date Scanned Code Status Resuscitation Status Full Code Insurance Coverage/Financial Issues Insurance: [employer] Financial Issues: Always a bit of a struggle, but they manage. Has [employer] and Fuel assistance. Care Team Visit Care Team Role Provider Type Lorena Mann NP Primary Care Provider NURSE PRACTITIONER Aspen Perry MD Emergency Provider [facility] STAFF PHYSICIAN Molly Brito, DO Admit Provider OSTEOPATHIC DOCTOR Attending Provider Other: [facility] Discharge Potential Discharge Needs: PCP F/U Appt and Surgical F/U Appt Anticipated Barriers to Discharge: None Identified Patient/Family Education Needs: Review discharge instructions, discuss Ask Me Three Plan: Anticipate that Denise will be discharged home with no new services. She will follow up with her PCP and with surgery. She will continue per her plan of care and transport home in a private vehicle with her . CM will continue to follow. PFSH All Active Problems (Updated 06/08/24 @ 16:13 by Molly Brito DO) Acute gallstone pancreatitis (Acute) Cholelithiasis (Acute) Acute pancreatitis (Acute) Corneal abrasion (Acute) Obstructive sleep apnea of adult (Acute) [facility] 12/23/23 Muscle spasm of left lower extremity (Acute) Muscle spasm of back (Acute) Diabetic cataract of right eye (Acute) Ulcer of right foot limited to breakdown of skin (Acute 04/16/23) [facility] Podiatry Ulcer of left foot, limited to breakdown of skin (Acute 04/16/23) [facility] Pod[facility]ry Iron deficiency (Acute) 03/2023 iron studies indicating deficiency (NOT anemic) Migraine (Chronic) [facility]Chronic) [facility] Opio[facility] use [facility] (Chronic) MAT with methadone Type 2 diabetes mellitus, with long-term current use of insulin (Chronic) With neuropathy & retinopathy (left, mild) Obesity (Chronic) Cirrhosis of liver (Chronic) [facility] Asthma (Chronic) Tobacco use disorder (Chronic) Started smoking age 9 Poorly controlled type 2 diabetes mellitus (Chronic 03/23/18) Polypharmacy (Chronic 12/14/15) Mild nonproliferative diabetic retinopathy associated with type 2 diabetes mellitus (Chronic 01/22/16) Mental health disorder (Chronic) Pt reports being diagnosed with bipolar disorder, disassociative disorder, anxiety, & multiple personality disorder Hypomagnesemia (Chronic 09/30/16) Hyperlipidemia (Chronic 09/30/16) 10-year ASCVD risk = unable to calculate due to not being age 40+ however dx T2DM, so Rx for statin 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 Jimenez [facility] 2023: [facility] GI Depressive disorder (Chronic 10/31/14) ADMISSION SUICIDAL THOUGHTS 06/13/14 OD ATTEMPTS IN PAST Chronic nausea (Chronic) EGD 04/16/16 Dr. Ferrer; multifactoral: gastroparesis, constipation, hype rglycemia, methadone Atrophic vaginitis (Chronic 07/09/17) Medical History Chronic fatigue (07/19/15) Osteomyelitis Dyspareunia in female (07/09/17) Punctate keratitis of both eyes Ulcer of foot due to secondary diabetes Umbilical hernia (03/11/18) 03/17/2018: [facility] Premature surgical menopause JAD/BSO in late 20s, no HRT Hepatitis C 02/14/2016 labwork: undetectable RNA level Surgical History Status post total hysterectomy and bilateral salpingo-oophorectomy (~2006) noncancerous reasons Status post left foot surgery (10/2022) Left fourth metatarsal head excision for chronic ulcer, osteomyelitis ([facility]/Tmaia Vidales DPM) Status post section (~2003) EGD (04/16/16) Dr. Ferrer Family History Mother , 46yo due to kidney & liver failure due to alcohol Substance use disorder Alcohol use disorder Father , 62yo from ALS Substance use disorder Alcohol use disorder ALS (amyotrophic lateral sclerosis) Grandmother Colon cancer Paternal Paternal Uncle Cardiac arrest Substance use disorder Alcohol and Pain Medication Abuse Social History Smoking/Tobacco Use Status: Current every day Tobacco Type: cigarettes Smoking packs per day: 1 Smoking cigarettes per day: 20.0 Tobacco: How many years used: 33 Quit status: considering quitting Smoking risk assessment performed?: Yes Alcohol Intake: never Drug use: Occasionally Substance use type: former substance user and marijuana Details: Pt. 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 Pets and animals: Yes (1 dog, 4 cats) Pets and animals: cat(s) and dog(s) Sexually active: Yes Do you think of yourself as: straight/heterosexual Current gender identity: female Other: 09/2022: pt reports she is engaged What is your relationship status?: How often do you talk on the phone with friends or family?: three or more times per week How often do you get together with friends or relatives?: once per week How often do you attend uatsdin or jainism services?: decline to answer Do you belong to any clubs or organized social groups?: no Panel score (0-1 are the most socially isolated patients): 2 What type of physical activity do you participate in: none Duration: decline to answer Frequency: decline to answer Seatbelt use: always Helmet use: No (No reason to wear one) Drive intox or ride w/intox driver messenger: No Do you feel safe at home: Yes Do you feel safe in your relationship?: Yes Additional Social history: unable to assess privately Readmission Within the Past 30 Days Yes or No: No (many ER visits noted) SDOH(Care Management) Screening Will the Patient Participate in the Screening?: Yes Do you worry about having a steady place to live?: no Problems where you live: no known problems In the past 12 months, have you had to go without electric, gas, oil or water in your home?: no Have you or anyone in your house had to go without enough food to eat?: no Has lack of transportation kept you from medical appointments or from doing things needed for daily living?: no Has anyone in your support network made you feel unsafe for any reason?: no Anticipated HH Services Anticipated HH Services at Discharge [facility] (possible services for wound care if surgery ) RN.
[2024-06-09] MEDS: Pregabalin 100 MG CAP 200 MG PO ×2 (14:22→19:51)
[2024-06-09] MEDS: Enoxaparin 40 MG/0.4 ML SYR SC (14:23)
[2024-06-09] MEDS: levoFLOXacin 750 MG/150 ML BAG 100 MG IVPB (16:11)
[2024-06-09 16:19] VITALS: BP 128/80; PULSE 86; RESP 17; TEMP 36.6; O2SAT 96
--- NOTE | 2024-06-09 16:27 | W.PM.PROGNOT ---
Date of Service Date of service: 06/09/24 Time of Service: 16:27 Assessment and Plan Assessment and plan (1) Acute gallstone pancreatitis: Status: Acute Assessment and plan: We reviewed the natural history of gallstone pancreatitis with Denise and explained the importance of time with regards to recovery. Her lipase is already quite a bit lower than when she came in, but still markedly elevated compared to normal. SHe also still has a bit of a leukocytosis. Reassuringly, her creatinine has also improved quite a bit. I will start to add some of her home medications back to see if that can make her a little more comfortable. In light of her narcotic requirement today, I do not think advancing her diet would be a smart move at this point. Will repeat the labs tomorrow, and hopefully start to relax some of the intravenous fluids and resuscitative effort. I explained the importance of cholecystectomy in the big picture, but recommended that she wait until she is pain-free with a normal lipase before pursuing that. Subjective Subjective Interval history since last seen: Denise is quite frustrated about being stuck in the hospital. She is quite eager to get home. Overall, she feels better than when she came in, but she still has quite a bit of abdominal pain, not much appetite. Exam GI Other: Abdomen soft, and tender in the mid epigastrium. Objective Last Vital Signs Temp 97.9 F 06/09/24 16:19 Pulse 86 06/09/24 16:19 Resp 17 06/09/24 16:19 BP 128/80 06/09/24 16:19 Pulse Ox 96 06/09/24 16:19 Laboratory Results - last 24 hr 06/08/24 06/09/24 14:30 06:46 WBC 14.90 H RBC 5.49 H Hgb 13.5 Hct 43.4 MCV 79 L MCH 24.6 L MCHC 31.1 L RDW 15.0 H Plt Count 189 MPV 11.8 H Immature Gran % 0.4 Neutrophils % 71.2 Lymphocytes % 20.9 Monocytes % 6.3 Eosinophils % 0.9 Basophils % 0.3 Nucleated RBC % 0.0 Absolute Neutrophils 10.61 H Absolute Lymphocytes 3.11 Absolute Monocytes 0.94 H Absolute Eosinophils 0.13 Absolute Basophils 0.04 PT 10.9 INR 1.1 Sodium 133 L 135 L Potassium 3.7 4.1 Chloride 98 100 Carbon Dioxide 27.9 24.3 Anion Gap 7.1 10.7 BUN 19 H 13 Creatinine 1.1 H 0.8 Est GFR (CKD-EPI 2020) 63.15 92.54 Glucose 328 H 163 H Hemoglobin A1c 10.6 H Calcium 9.5 9.4 Total Bilirubin 0.46 0.52 GGT 77 H AST 14 L 12 L ALT 19 16 Alkaline Phosphatase 145 H 136 H C-Reactive Protein 20.92 H Total Protein 7.1 6.9 Albumin 3.1 L 2.7 L Lipase > 375 H 195 H Time Spent with Patient Time Spent with Patient: 25-34 minutes Time was spent: preparing to see the patient(eg.review tests), ordering medications,tests, procedures, referring, communicating with other health health care assistant, indepentently interpreting results and counseling the patient
[2024-06-09 19:50] VITALS: BP 118/62; PULSE 85; RESP 15; TEMP 36.8; O2SAT 95
[2024-06-09] MEDS: Mirtazapine 15 MG TAB PO (19:52)
[2024-06-09] MEDS: cloNIDine 0.1 MG TAB 0.2 MG PO (19:52)
[2024-06-09 23:37] VITALS: BP 109/64; PULSE 82; RESP 14; TEMP 36.4; O2SAT 95
[2024-06-10] MEDS: LORazepam 2 MG/ML VIAL 0.5 MG IVP (01:52)
[2024-06-10] MEDS: MORPHine 2 MG/ML SYR IVP ×6 (01:53→15:26)
[2024-06-10] MEDS: ACETAMINOPHEN 1,000 MG/100 ML BTL 400 MG IVPB ×4 (01:53→21:36)
[2024-06-10] MEDS: Normal Saline Flush 10 ML SYR IVP ×5 (01:54→21:36)
[2024-06-10] MEDS: Ondansetron 4 MG/2 ML VIAL IVP (04:06)
[2024-06-10] MEDS: Lactated Ringers 1,000 ML 75 ML IV ×2 (05:25→19:20)
[2024-06-10 06:19] VITALS: BP 130/66; PULSE 83; RESP 18; TEMP 36; O2SAT 95
[2024-06-10] MEDS: Pregabalin 100 MG CAP 200 MG PO ×3 (07:35→21:36)
[2024-06-10] MEDS: Pantoprazole 40 MG VIAL IVP (07:35)
[2024-06-10] MEDS: Lurasidone 40 MG TAB 80 MG PO (07:35)
[2024-06-10] MEDS: Nicotine 21 MG/24 HR PATCH TD (07:35)
[2024-06-10 07:37] LABS: ALT 19 U/L (14-59); AST 19 U/L (15-37); Albumin 3.2 g/dL (3.4-5.0); Alkaline Phosphatase 159 U/L (46-116); Anion Gap 20.5 mmol/L (3-11); BUN 12 mg/dL (7-18); Bilirubin, Total 0.59 mg/dL (0.2-1.0); CO2 15.5 mmol/L (21.0-32.0); CREATININE 0.9 mg/dL (0.55-1.02); Calcium 10.5 mg/dL (8.5-10.1); Chloride 100 mmol/L (98-107); Estimated GFR 80.34 (mL/min/1.73m2); Glucose 157 mg/dL (74-106); Lipase 175 U/L (16-77); Potassium 4.4 mmol/L (3.5-5.1); Sodium 136 mmol/L (136-145); Total Protein 8.3 g/dL (6.4-8.2)
--- NOTE | 2024-06-10 08:27 | RESPIRATORY ---
Spoke with patient about her LESLIE diagnosis and she advised she had a CPAP machine a couple years ago but couldn't tolerate the mask so she returned the machine.
[2024-06-10] MEDS: Methadone Liquid 10 MG/ML 77 MG PO (09:40)
--- NOTE | 2024-06-10 10:24 | PDOC.CMPRO ---
Date of service: 06/10/24 Time of Service: 10:24 Care Management Progress Note Progress Note Text Progress Note Text: Denise was lying in bed when CM met with her this afternoon. She preferred not to talk too much. She said her pain is better today, still present, but better. She continues to be nauseous. She stated that she threw up earlier in the day. She had a clear liquid lunch today, but only had a bit of it. She stated that she just isn't hungry, and the nausea is keeping her away from the food. She remains on running IVF. . Discharge Potential Discharge Needs: PCP F/U Appt and Surgical F/U Appt Anticipated Barriers to Discharge: Medical Status Patient/Family Education Needs: Review discharge instructions, discuss Ask Me Three Transportation: Private vehicle Plan: Anticipate that Denise will be discharged home with no new services. She will follow up with her PCP and with surgery. She will continue per her plan of care and transport home in a private vehicle with her . CM will continue to follow. SDOH(Care Management) Screening Will the Patient Participate in the Screening?: Yes Do you worry about having a steady place to live?: no Problems where you live: no known problems In the past 12 months, have you had to go without electric, gas, oil or water in your home?: no Have you or anyone in your house had to go without enough food to eat?: no Has lack of transportation kept you from medical appointments or from doing things needed for daily living?: no Has anyone in your support network made you feel unsafe for any reason?: no
[2024-06-10 12:16] LABS: HCT 45.8 % (36.0-46.0); HGB 13.9 g/dL (11.2-15.7); MCH 24.8 pg (27.0-33.0); MCHC 30.3 % (32.0-36.0); MCV 82 fL (80-95); MPV 12.5 fL (8.0-11.0); Platelet Count 200 10^3/uL (130-400); RBC 5.61 10^6/uL (3.93-5.22); RDW 15.6 % (11.7-14.6); WBC 15.68 10^3/uL (4.4-10.8)
[2024-06-10] MEDS: Insulin Aspart 300 UNITS/3 ML PEN SC ×2 (12:41→18:10)
--- NOTE | 2024-06-10 12:45 | W.PM.PROGNOT ---
Date of Service Date of service: 06/10/24 Time of Service: 16:02 Assessment and Plan Assessment and plan (1) Acute gallstone pancreatitis: Status: Acute Assessment and plan: Despite her persistent use of the morphine hourly and complains of abdominal pain, on exam she does not seem to have any acute tenderness. I changed her morphine dosing from hourly to every 2 hours. I told her that she needs to stop taking it unless she truly has acute pain. She did ask about eating something and I agreed to let her try some clear liquids again today. We talked about the fact that her general malaise that she has at home is as well as some intermittent retching is probably not going to change while she is here. She was again asking about the gallstones and pancreatitis and what will be done next. I explained to her that ideally she would undergo cholecystectomy in a timely manner. That might be on this admission, but there might be some barriers to that. Once she is pain-free, I will have anesthesia review her chart and see if they think she is a candidate for surgery here or if she needs to go to a tertiary center. -Clear liquids ? IV fluids ? Continue to monitor urine output and vital signs ? Labs in a.m. ? Morphine for pain as needed Subjective Subjective Interval history since last seen: Patient continues to complain of pain to nursing and continues to use the IV morphine frequently. Reportedly she tried some clear liquids yesterday and this increased her abdominal pain. With me she initially complains of abdominal pain but on exam is essentially nontender. She subsequently admits that she has some generalized bodyaches and has had some retching. These are not new for her. Vital signs are stable. Her lipase continues to trend down at 175 today. Her white blood cell count has increased from 14-15. LFTs are essentially within normal limits. Her bicarb has come down to 15.5 from 23. Exam Narrative Exam Narrative: General?obese woman lying in bed, sleepy but easily arousable. HEENT?mucous membranes are dry. Sclera anicteric. Normocephalic, atraumatic. Respiratory?slight increased work of breathing, no use of accessory muscles Abdomen?soft, minimally to not tender in the upper abdomen, not tender in the lower abdomen, not distended but morbidly obese Extremities?moves all extremities, some mild edema, warm and dry Objective Last Vital Signs Temp 36 C L 06/10/24 06:19 Pulse 83 06/10/24 06:19 Resp 18 06/10/24 06:19 BP 130/66 06/10/24 06:19 Pulse Ox 95 06/10/24 06:19 Laboratory Results - last 24 hr 06/10/24 06/10/24 06:57 11:44 WBC 15.68 H RBC 5.61 H Hgb 13.9 Hct 45.8 MCV 82 MCH 24.8 L MCHC 30.3 L RDW 15.6 H Plt Count 200 MPV 12.5 H Sodium 136 Potassium 4.4 Chloride 100 Carbon Dioxide 15.5 L Anion Gap 20.5 H BUN 12 Creatinine 0.9 Est GFR (CKD-EPI 2020) 80.34 Glucose 157 H Calcium 10.5 H Total Bilirubin 0.59 AST 19 ALT 19 Alkaline Phosphatase 159 H Total Protein 8.3 H Albumin 3.2 L Lipase 175 H Time Spent with Patient Time Spent with Patient: 25-34 minutes Time was spent: preparing to see the patient(eg.review tests), obtaining and/or reviewing separately otained hiistory, ordering medications,tests, procedures and counseling the patient
[2024-06-10] MEDS: Enoxaparin 40 MG/0.4 ML SYR SC (14:26)
[2024-06-10 15:11] VITALS: BP 159/82; PULSE 109; RESP 18; TEMP 36.4; O2SAT 98
[2024-06-10] MEDS: levoFLOXacin 750 MG/150 ML BAG 100 MG IVPB (15:31)
[2024-06-10] MEDS: Budesonide/Formoterol 160/4.5 6 GM 60 PUFF INH IH (19:25)
[2024-06-10] MEDS: cloNIDine 0.1 MG TAB 0.2 MG PO (21:36)
[2024-06-10] MEDS: Mirtazapine 15 MG TAB PO (21:36)
[2024-06-10 21:37] VITALS: BP 144/73; PULSE 110; RESP 20; TEMP 37.6; O2SAT 98
--- NOTE | 2024-06-11 | DI.US_ITS ---
Exam(s) US ABDOMEN LIMITED EXAM: US ABDOMEN LIMITED CLINICAL HISTORY: gallstone pancreatitis TECHNIQUE: Ultrasound abdomen performed using standard protocol. COMPARISON: CT CT ABDOMEN PELVIS WO from 06/07/2024 FINDINGS: Exam is somewhat limited by patient inability to breath hold as well as body habitus. LIVER: Enlarged at 18.5 cm in length. Overall moderate hepatic steatosis. Posterior portions of the liver are not well seen. Areas of extreme fat filtration in the left lobe. Left lobe appears somew hat shrunken. GALLBLADDER: Tiny layering stones.. No evidence of wall thickening. No pericholecystic fluid identif ied. COVARRUBIAS'S SIGN: Negative. BILIARY SYSTEM: No intrahepatic or extrahepatic biliary ductal dilation. Right kidney: No evidence of renal calculi. No evidence of hydronephrosis. No renal mass or cyst iden tified. PANCREAS: Normal where visualized. No fluid collection. ABDOMINAL AORTA AND IVC: Visualized portions normal caliber. ASCITES: None seen. IMPRESSION: Cholelithiasis. No evidence of acute cholecystitis or biliary dilatation. No right upper quadrant fluid collection. DATA REPOSITORY:
[2024-06-11] MEDS: ACETAMINOPHEN 1,000 MG/100 ML BTL 400 MG IVPB ×4 (01:03→20:30)
[2024-06-11] MEDS: Insulin Aspart 300 UNITS/3 ML PEN SC ×3 (06:03→18:31)
[2024-06-11] MEDS: Budesonide/Formoterol 160/4.5 6 GM 60 PUFF INH IH ×2 (08:11→20:02)
[2024-06-11 08:28] VITALS: BP 151/79; PULSE 93; RESP 16; TEMP 36.6; O2SAT 95
[2024-06-11] MEDS: Pantoprazole 40 MG VIAL IVP (08:42)
[2024-06-11] MEDS: Ondansetron 4 MG/2 ML VIAL IVP ×2 (08:43→20:29)
[2024-06-11 08:47] LABS: Absolute Basophil Count 0.03 10^3/uL (0.0-0.2); Absolute Eosinophil Count 0.04 10^3/uL (0.0-0.7); Absolute Lymphocyte Count 1.71 10^3/uL (1.2-3.4); Absolute Monocyte Count 0.88 10^3/uL (0.1-0.8); Basophils % 0.2 %; Eosinophils % 0.3 %; HCT 46.3 % (36.0-46.0); HGB 14.3 g/dL (11.2-15.7); Immature Grans % 0.8 %; Lymphocytes % 13.5 %; MCH 24.5 pg (27.0-33.0); MCHC 30.9 % (32.0-36.0); MCV 79 fL (80-95); MPV 11.4 fL (8.0-11.0); Neutrophils % 78.2 %; Platelet Count 195 10^3/uL (130-400); RBC 5.84 10^6/uL (3.93-5.22); RDW 16.2 % (11.7-14.6); RDW-SD 45.5 fL; WBC 12.63 10^3/uL (4.4-10.8)
[2024-06-11] MEDS: Lurasidone 40 MG TAB 80 MG PO (08:49)
[2024-06-11] MEDS: Pregabalin 100 MG CAP 200 MG PO ×2 (08:49→20:29)
[2024-06-11] MEDS: Nicotine 21 MG/24 HR PATCH TD (08:50)
[2024-06-11 08:51] LABS: Absolute Neutrophil Count 9.88 10^3/uL (1.2-6.7)
[2024-06-11] MEDS: Normal Saline Flush 10 ML SYR IVP ×4 (09:06→20:29)
[2024-06-11] MEDS: Methadone Liquid 10 MG/ML 77 MG PO (09:07)
[2024-06-11 09:16] LABS: Lipase 131 U/L (16-77)
[2024-06-11 09:19] LABS: ALT 17 U/L (14-59); AST 22 U/L (15-37); Albumin 2.9 g/dL (3.4-5.0); Alkaline Phosphatase 149 U/L (46-116); Anion Gap 17.9 mmol/L (3-11); BUN 16 mg/dL (7-18); Bilirubin, Total 0.55 mg/dL (0.2-1.0); CO2 16.1 mmol/L (21.0-32.0); CREATININE 1.2 mg/dL (0.55-1.02); Calcium 9.9 mg/dL (8.5-10.1); Chloride 103 mmol/L (98-107); Estimated GFR 56.89 (mL/min/1.73m2); Glucose 181 mg/dL (74-106); Potassium 3.8 mmol/L (3.5-5.1); Sodium 137 mmol/L (136-145); Total Protein 7.9 g/dL (6.4-8.2)
[2024-06-11] MEDS: Lactated Ringers 1,000 ML 75 ML IV (10:05)
--- NOTE | 2024-06-11 10:40 | NUR.NOTE ---
Nursing Note: During patient care, nurse noted multiple medications at bedside in patients bag. Nurse updated Med/Surg director Liliya Almonte RN, who assisted in the removal of prescription and over the counter medication from room. Medications will go to pharmacy. Patient was in bed with eyes closed. Nurse will update provider.
[2024-06-11] MEDS: Lactated Ringers 500 ML IV (11:04)
[2024-06-11] MEDS: Enoxaparin 40 MG/0.4 ML SYR SC (13:57)
[2024-06-11 14:01] VITALS: BP 118/65; PULSE 96; TEMP 37; O2SAT 99
--- NOTE | 2024-06-11 14:09 | NUR.NOTE ---
Nursing Note: Patient difficult to keep awake, after repeated attempts patient sat on edge of bed, performed bronchial hygiene and drank some fluids. Patient reports pain but still noted to have garbled/slurred speech, pinpoint pupils but able to follow commands once awake.
--- NOTE | 2024-06-11 14:16 | PDOC.CMPRO ---
Date of service: 06/11/24 Time of Service: 14:16 Care Management Progress Note Progress Note Text Progress Note Text: Denise was sleeping when CM met with her. Her was at the bedside. Denise was very difficult to rouse and was unable to offer any information today. Denise still has running IVF, and is on a clear liquid diet. She is still having nausea, per 's report, medicated x 1 for this today. Denise had an abdominal U/S this afternoon, but the results have not been discussed with her as of yet. Discharge Potential Discharge Needs: PCP F/U Appt and Surgical F/U Appt Plan: Anticipate that Denise will be discharged home with no new services, once medically cleared by surgery. She will follow up with her PCP and with surgery. She will continue per her plan of care and transport home in a private vehicle with her . CM will continue to follow. SDOH(Care Management) Screening Will the Patient Participate in the Screening?: Yes Do you worry about having a steady place to live?: no Problems where you live: no known problems In the past 12 months, have you had to go without electric, gas, oil or water in your home?: no Have you or anyone in your house had to go without enough food to eat?: no Has lack of transportation kept you from medical appointments or from doing things needed for daily living?: no Has anyone in your support network made you feel unsafe for any reason?: no
[2024-06-11 15:19] VITALS: BP 140/76; PULSE 94; RESP 17; TEMP 36.7; O2SAT 98
[2024-06-11] MEDS: levoFLOXacin 750 MG/150 ML BAG 100 MG IVPB (16:28)
--- NOTE | 2024-06-11 17:38 | W.PM.PROGNOT ---
Date of Service Date of service: 06/11/24 Time of Service: 17:38 Assessment and Plan Assessment and plan (1) Acute gallstone pancreatitis: Status: Acute Assessment and plan: 43-year-old female who has had multiple episodes of gallstone pancreatitis. Her acute pain has resolved. Her lab work is improving. She is tolerating some p.o. today although she did have some retching early this morning. I did speak to anesthesia and they feel that she would be a candidate for cholecystectomy here at our hospital despite her elevated BMI. Dr. Stockton will be taking over tomorrow and feels he may be able to take her to the operating room for cholecystectomy. I have also spoken to Dr. Weathers and asked him to consult and manage her blood sugars and diabetes medications. - Continue clear liquid diet ? N.p.o. at midnight ? Continue IV fluids ? Continue IV antibiotics ? Discontinue morphine and Ativan ? Insulin and blood sugar management per hospitalist ? Labs in a.m. 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 She is arousable and able to questions. She did have some retching this morning with production of a small amount of fluid. She complains of not feeling well. She also complains of not being allowed to go outside to smoke a cigarette. She does get up from time to time and walk around the room. With prompting she admits that the upper abdominal pain that she came in with has resolved. She is tolerating clear liquids. She is voiding although her urine output has not been recorded or monitored. Labs show that her white blood cell count has started to trend down from 15 to 12 today. Her electrolytes are stable. Her bicarb has come up from 15 to 16. Her lipase continues to trend down although slowly. Vital signs stable. Afebrile. I obtained a right upper quadrant ultrasound today. This shows small punctate gallstones. No gallbladder wall thickening, no pericholecystic fluid, no ductal dilatation. Despite minimal p.o. intake, resistant sliding scale insulin, her blood sugars continue to rise. Exam Narrative Exam Narrative: General?lying in bed with head of bed elevated, appears sleepy but is rousable, no apparent HEENT?mucous membranes moist, sclera anicteric, edentulous, normocephalic, atraumatic. Neck?supple Respiratory?unlabored, no use of accessory muscles Abdomen?soft, nontender, obese. No rebound tenderness, no guarding. Extremities?moves all extremities, ambulates independently Objective Last Vital Signs Temp 36.7 C 06/11/24 15:19 Pulse 94 H 06/11/24 15:19 Resp 17 06/11/24 15:19 BP 140/76 06/11/24 15:19 Pulse Ox 98 06/11/24 15:19 Laboratory Results - last 24 hr 06/11/24 08:38 WBC 12.63 H RBC 5.84 H Hgb 14.3 Hct 46.3 H MCV 79 L MCH 24.5 L MCHC 30.9 L RDW 16.2 H Plt Count 195 MPV 11.4 H Immature Gran % 0.8 Neutrophils % 78.2 Lymphocytes % 13.5 Monocytes % 7.0 Eosinophils % 0.3 Basophils % 0.2 Nucleated RBC % 0.0 Absolute Neutrophils 9.88 H Absolute Lymphocytes 1.71 Absolute Monocytes 0.88 H Absolute Eosinophils 0.04 Absolute Basophils 0.03 Sodium 137 Potassium 3.8 Chloride 103 Carbon Dioxide 16.1 L Anion Gap 17.9 H BUN 16 Creatinine 1.2 H Est GFR (CKD-EPI 2020) 56.89 Glucose 181 H Calcium 9.9 Total Bilirubin 0.55 AST 22 ALT 17 Alkaline Phosphatase 149 H Total Protein 7.9 Albumin 2.9 L Lipase 131 H Time Spent with Patient Time Spent with Patient: 25-34 minutes Time was spent: preparing to see the patient(eg.review tests), ordering medications,tests, procedures, indepentently interpreting results, counseling the patient and care coordination
[2024-06-11] MEDS: Mirtazapine 15 MG TAB PO (20:29)
[2024-06-11] MEDS: cloNIDine 0.1 MG TAB 0.2 MG PO (20:29)
[2024-06-11 20:33] VITALS: BP 128/58; PULSE 92; RESP 18; TEMP 36.3; O2SAT 97
[2024-06-11] MEDS: Nystatin POWDER 15 GM JAR TP (21:47)
[2024-06-12] VITALS (43 sets, daily range): BP systolic 135–184; BP diastolic 73–94; PULSE 93–112; RESP 9–22; TEMP 36.4–37.3; O2SAT 95–100; BMI 40.2
--- NOTE | 2024-06-12 | DI.RAD_ITS ---
Exam(s) XR PORTABLE CHEST AP POST LINE EXAM: XR PORTABLE CHEST AP POST LINE CLINICAL HISTORY: Central line placement. Right IJ. TECHNIQUE: 2D digital imaging was performed. COMPARISON: CR XR CHEST 2V PA LATERAL from 07/16/2023 FINDINGS: Single AP portable view. Distal tip of right jugular central line is at SVC-RA junction. Cardiomegaly noted. Mediastinum unchanged. There are increased markings in left lower lobe retrocardiac region, possibly just vascular but canno t exclude some infiltrate at this level. Lesser amount of increased markings also noted in the media l right lung base. No obvious pleural effusion on the right side. Slight blunting of left costophrenic angle noted whic h may indicate a small amount left pleural fluid. No pneumothorax. No obvious fractures. IMPRESSION: Suggestion of subtle left lower lobe infiltrate and small amount of left pleural fluid. Cardiomegaly again noted. DATA REPOSITORY: RADIATION DOSE DELIVERED:
[2024-06-12] MEDS: SUMAtriptan 50 MG TAB 100 MG PO (00:39)
[2024-06-12] MEDS: Ondansetron 4 MG/2 ML VIAL IVP ×2 (01:03→04:43)
[2024-06-12] MEDS: ACETAMINOPHEN 1,000 MG/100 ML BTL 400 MG IVPB ×4 (01:16→19:32)
[2024-06-12] MEDS: Lactated Ringers 1,000 ML 125 ML IV (04:42)
--- NOTE | 2024-06-12 05:30 | NUR.NOTE ---
Addendum entered by Ruel Wells RN 06/12/24 06:13: Additionally provided lemon swabs since NPO at midnight. Original Note: Nursing Note: Dr Reyes notified at 0350 that pt has 10/10 epigastric pain, intractable N/V and dry wretching (Zofran administered twice with minimal effect first time, and no effect second time), mirgraine (sumatriptan given with no relief) tried a warm shower minimal effect, tried sniffing alcohol swab which didn't help nausea, tried breathing exercises, patient noticeably diaphoretic but afebrile, pt unable to sleep because of pain N/V (green bile), icepack, cold cloth on forehead, tried walking, sitting in chair, multiple different positions in bed without any relief. Vitals showed afebrile, HR 93-100 BP 169/77 RR 22, sobbing/crying uncontrollably. All benzodiazepines have been held for 48 hours, wondering if she could be potentially experiencing benzo withdrawal? I don't want to completely assume and be narrow minded in thinking this is all from her gallbladder/pancreas. Would like something for pain or anxiety, something additional for the N/V, antacid? No new orders. Per provider Give her the pain medications she has ordered Nurse: I don't have any pain medications to give her, Tylenol was given at 0130 without any relief, she isn't due until 0800 Provider: That's fine she does not need any additional pain medications, just let her sleep Nurse: She can't sleep when she is in 10/10 pain and throwing up every 10 minutes. Can you at least give her something additional to help with with her N/V? Provider: No, I will see her for surgery this morning Nurse: I will notate this in the chart and communicate our conversation to the patient, have a great night. Pt continued to throw up bile the rest of the night, intractable pain, sobbing. Her ting and retching were so loud, her door had to be closed because it was disturbing other patients at the opposite side of her wadr.
[2024-06-12] MEDS: Insulin Aspart 300 UNITS/3 ML PEN SC ×2 (06:40→17:51)
[2024-06-12] MEDS: Methadone Liquid 10 MG/ML 77 MG PO (07:50)
[2024-06-12] MEDS: Pantoprazole 40 MG VIAL IVP (07:51)
[2024-06-12] MEDS: Lurasidone 40 MG TAB 80 MG PO (07:52)
[2024-06-12] MEDS: Pregabalin 100 MG CAP 200 MG PO ×3 (07:52→19:32)
[2024-06-12] MEDS: Nicotine 21 MG/24 HR PATCH TD (07:53)
[2024-06-12 08:58] LABS: Abs Immature Grans 0.12 10^3/uL (0.0-0.06); Absolute Basophil Count 0.03 10^3/uL (0.0-0.2); Absolute Neutrophil Count 13.08 10^3/uL (1.2-6.7); Basophils % 0.2 %; HCT 46.5 % (36.0-46.0); HGB 14.2 g/dL (11.2-15.7); Immature Grans % 0.8 %; Lymphocytes % 5.6 %; MCH 24.5 pg (27.0-33.0); MCHC 30.5 % (32.0-36.0); MCV 80 fL (80-95); MPV 10.9 fL (8.0-11.0); Neutrophils % 91.4 %; Platelet Count 222 10^3/uL (130-400); RBC 5.79 10^6/uL (3.93-5.22); RDW 16.3 % (11.7-14.6); RDW-SD 47.3 fL; WBC 14.31 10^3/uL (4.4-10.8)
[2024-06-12 09:14] LABS: ALT 18 U/L (14-59); AST 20 U/L (15-37); Albumin 3.3 g/dL (3.4-5.0); Alkaline Phosphatase 158 U/L (46-116); BUN 13 mg/dL (7-18); Bilirubin, Total 0.58 mg/dL (0.2-1.0); CREATININE 1.2 mg/dL (0.55-1.02); Chloride 100 mmol/L (98-107); Estimated GFR 56.89 (mL/min/1.73m2); Glucose 201 mg/dL (74-106); Lipase 101 U/L (16-77); Potassium 3.6 mmol/L (3.5-5.1); Sodium 136 mmol/L (136-145); Total Protein 8.7 g/dL (6.4-8.2)
--- NOTE | 2024-06-12 09:16 | W.PM.PROGNOT ---
Date of Service Date of service: 06/12/24 Time of Service: 09:17 Assessment and Plan Assessment and plan (1) Acute gallstone pancreatitis: Status: Acute Assessment and plan: 43-year-old woman who has had recurrent gallstone pancreatitis. She is malnourished and chronically ill at baseline. She has multiple medical comorbidities including very poorly controlled diabetes, presumable vascular and neurologic diseases associated with diabetes, severe morbid obesity (BMI 40+), reportedly has cirrhosis of the liver though imaging does not support that. 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 She is hemodynamically stable. Her lipase continues to down?trend and near?normal. Her bilirubin is normal but she continues to have an elevated alk phos. She is hoping to be discharged today. She needs to have her gallbladder out before discharge. Considering the improving lipase and the improvement of her symptoms subjectively, I think we can proceed. Her ultrasound and CT scan imaging does not show a cirrhotic liver but simply fatty steatosis. There is no intra or extrahepatic ductal dilatation. She does not have obstructive lab work. I had a detailed talk with the patient and her at the bedside about cholecystectomy and the role for it. We talked about the risks of surgery including bile leak, bile duct injury, recurrent pancreatitis from other issues and wound/healing issues related to her chronic comorbid conditions. She has elevated risk is a surgical candidate, but all of those risk factors she has are not really modifiable and the risk of having recurrent pancreatitis is really her biggest risk factor that needs to be modified by cholecystectomy and surgery. I had further discussion with them about postop pain. She will not be prescribed any narcotic pain medication. Overall plan: Laparoscopic cholecystectomy Subjective Subjective Interval history since last seen: Overnight patient has not had any clinical changes or new or unusual events. She does states she had some nausea and anxiety related to the upcoming procedure. She states that she has nausea and vomiting on a daily basis at home because of my gastroparesis. She lives with a prescription of Zofran and takes it almost daily. Overall the pain she came to the hospital with is drastically improved. She continues to describe her ongoing discomfort as 10 out of 10 but she does take methadone and likely has hyperalgesia. I discussed the role for cholecystectomy with her and her at the bedside. They understand and wish to proceed. Her surgical history includes and hysterectomy Exam Narrative Exam Narrative: Gen: Non-toxic, comfortable and interactive. Appears poorly nourished at baseline Neuro: Alert and oriented x3 Psych: Good mood and affect. Good insight and understanding into condition. Chest: Non-labored breathing, no wheezing, no visible shortness of breath. Heart: Regular Abdomen: Soft, obese, nontender to examination and not distended. Objective Last Vital Signs Temp 97.7 F 06/12/24 08:57 Pulse 102 H 06/12/24 08:57 Resp 18 06/12/24 08:57 BP 181/85 H 06/12/24 08:57 Pulse Ox 97 06/12/24 08:57 Laboratory Results - last 24 hr 06/11/24 08:38 Sodium 137 Potassium 3.8 Chloride 103 Carbon Dioxide 16.1 L Anion Gap 17.9 H BUN 16 Creatinine 1.2 H Est GFR (CKD-EPI 2020) 56.89 Glucose 181 H Calcium 9.9 Total Bilirubin 0.55 AST 22 ALT 17 Alkaline Phosphatase 149 H Total Protein 7.9 Albumin 2.9 L Lipase 131 H Time Spent with Patient Time Spent with Patient: 25-34 minutes Time was spent: preparing to see the patient(eg.review tests), obtaining and/or reviewing separately otained hiistory, ordering medications,tests, procedures, indepentently interpreting results and counseling the patient
[2024-06-12 09:21] LABS: Absolute Monocyte Count 0.29 10^3/uL (0.1-0.8)
[2024-06-12 09:25] LABS: Calcium 10.2 mg/dL (8.5-10.1)
[2024-06-12] MEDS: Normal Saline Flush 10 ML SYR IVP ×2 (09:38→19:34)
[2024-06-12] MEDS: Nystatin POWDER 15 GM JAR TP ×2 (09:38→19:35)
--- NOTE | 2024-06-12 09:55 | ANES.PREOP_ITS ---
General Info Date of Service Date Performed: 06/12/24 Height: 5 ft 4 in Weight: 106.322 kg Body Mass Index (BMI): 40.2 Surgical Procedure: Operation Date: 06/12/24 08:50 Proposed Procedure Side Surgeon p Cholecystectomy Laparoscopic Rubio Reyes MD Meds Allergies and Home Medications Allergies Allergy/AdvReac Type Severity Reaction Status Date / Time Penicillins Allergy Severe lip and Verified 06/08/24 11:53 facial swelling lamotrigine (From Lamictal) Allergy Unknown Skin Rash Verified 06/08/24 11:53 clindamycin AdvReac Severe Nausea & Verified 06/08/24 11:53 vomiting aspirin AdvReac Intermediate nausea/pain Verified 06/08/24 11:53 Home Medication ?Medication ?Instructions ?Recorded methadone 10 mg/mL oral concentrate 77 mg PO DAILY 02/12/19 atorvastatin 10 mg tablet 10 mg PO QHS #90 tabs 09/03/19 acetaminophen 500 mg tablet 500 - 1,000 mg (1 - 2 x 500 mg) PO 09/24/19 Q8H PRN fever or pain #180 tab-caps alcohol swabs (Alcohol Pads) 1 pad topical QID #400 ea 10/25/22 lorazepam 0.5 mg tablet 0.5 mg PO DAILY PRN 03/13/23 pen needle, diabetic 32 gauge x #100 ea 06/30/23 (BD Ultra-Fine Yamini Pen Needle) blood-glucose meter #1 ea 08/28/23 lancets #400 ea 08/28/23 blood-glucose transmitter (Dexcom #3 ea 09/25/23 G6 Transmitter device) clonidine HCl 0.2 mg tablet 0.2 mg PO HS 11/21/23 insulin aspart U-100 100 unit/mL 15 unit (0.15 mL) subcut AC #15 mL 01/05/24 (3 mL) subcutaneous pen (Novolog FlexPen U-100 Insulin aspart) naloxone 4 mg/actuation nasal 4 mg intranasal Q2M PRN opioid 02/13/24 spray (Narcan) overdose #2 ea insulin degludec 100 unit/mL (3 140 unit subcut DAILY 03/05/24 mL) subcutaneous pen (Tresiba FlexTouch U-100 insulin) empagliflozin 25 mg tablet 25 mg PO DAILY AM #90 tab-caps 04/05/24 (Jardiance) 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 04/12/24 #90 tab-caps blood sugar diagnostic (Blood #400 ea 04/26/24 Glucose Test strips) blood-glucose sensor (Dexcom G6 #3 ea 04/26/24 Sensor device) magnesium oxide 400 mg (241.3 mg 400 mg PO BID #180 tabs 04/26/24 magnesium) tablet mirtazapine 15 mg tablet 15 mg PO HS 05/03/24 omeprazole 40 mg capsule,delayed 40 mg PO DAILY #90 caps 05/20/24 release nystatin 100,000 unit/gram topical 1 applic topical BID PRN fungal 05/25/24 powder skin infection #30 grams sumatriptan succinate 100 mg tablet 100 mg PO ONCE PRN migraine 05/25/24 headache #30 tab-caps albuterol sulfate 90 mcg/actuation 1 - 2 puff inhalation Q4-6H PRN ##1 05/31/24 aerosol inhaler celecoxib 200 mg capsule See Rx Instructions .Route 05/31/24 .COMPLEX #60 caps fluticasone 250 mcg-salmeterol 50 1 inh inhalation BID #60 ea 05/31/24 mcg/dose blistr powdr for inhalation (Advair Diskus) gabapentin 300 mg capsule 300 mg PO HS PRN back pain #60 caps 05/31/24 glucagon 1 mg/0.2 mL subcutaneous 1 mg (0.2 mL) subcut ONCE #0.4 mL 05/31/24 auto-injector (Gvoke HypoPen 2-Pack) ipratropium 0.5 mg-albuterol 3 mg 3 ml inhalation QID PRN wheezing 05/31/24 (2.5 mg base)/3 mL nebulization #180 mL soln methocarbamol 500 mg tablet 1,000 mg (2 x 500 mg) PO HS PRN 05/31/24 muscle spasm #90 tabs metoclopramide HCl 10 mg tablet 10 mg PO TID PRN 05/31/24 ondansetron 8 mg disintegrating 8 mg PO BID PRN nausea and 05/31/24 tablet vomiting #60 tabs pregabalin 200 mg capsule 200 mg PO TID #270 tab-caps 05/31/24 fremanezumab-vfrm 225 mg/1.5 mL 225 mg subcut QMONTH 06/07/24 subcutaneous auto-injector (Ajovy) onabotulinumtoxinA 100 unit 300 unit IM ONCE 06/07/24 solution for injection (Botox) dextroamphetamine-amphetamine 20 20 mg PO TID PRN 06/08/24 mg tablet hydroxyzine pamoate 50 mg capsule 50 mg PO BID PRN 06/08/24 lurasidone 80 mg tablet 80 mg PO DAILY 06/08/24 Current Visit Medications: Current Medications Generic Name Dose Route Start Last Admin Trade Name Freq PRN Reason Stop Dose Admin Albuterol Sulfate 1 - 2 puff 06/08/24 16:00 Albuterol Hfa 8 Gm 60 Puff Inh IH Q4H PRN PRN Albuterol/Ipratropium 3 ml 06/08/24 15:54 Albuterol/Ipratropium 3 Ml Upd Vial IH QID PRN PRN wheezing Amphetamine Aspartate/Amphetam Sulf 20 mg 06/08/24 16:03 Amphet Asp/Amphet/D-Amphet 10 Mg Tab PO TID PRN PRN Bisacodyl 10 mg 06/10/24 07:20 Bisacodyl 10 Mg Supp SC DAILY PRN PRN Budesonide/Formoterol Fumarate 2 puff 06/08/24 20:00 06/11/24 20:02 Budesonide/Formoterol 160/4.5 6 Gm 60 Puff Inh IH 2 puffs BID JR Administration Clonidine 0.2 mg 06/08/24 20:00 06/11/24 20:29 Clonidine 0.1 Mg Tab PO 0.2 mg HS JR Administration Device 1 each 06/08/24 16:00 Inhaler, Assist Device MC DIRECTED JR Dextrose 0 gm 06/08/24 13:30 Glucose Oral Gel 15 Gm/37.5 Gm Tube PO DIRECTED PRN Dextrose/Water 0 gm 06/08/24 13:30 Dextrose 50%-Water 25 Gm/50 Ml Syr IVP DIRECTED PRN Enoxaparin Sodium 40 mg 06/08/24 14:00 06/11/24 13:57 Enoxaparin 40 Mg/0.4 Ml Syr SC 40 mg Q24H JR Administration Ringer's Solution 1,000 mls @ 125 mls/hr 06/08/24 13:30 06/12/24 04:42 IV 125 mls/hr INFUSION JR Administration Acetaminophen 1,000 mg in 100 mls @ 400 mls/hr 06/08/24 14:00 06/12/24 07:51 Ofirmev IVPB 400 mls/hr Q6H JR Administration Levofloxacin 750 mg in 150 mls @ 100 mls/hr 06/08/24 16:00 06/11/24 17:58 Levaquin Premixed Bag IVPB Infused Q24H JR Infusion IV Miscellaneous Supplies 1 each 06/08/24 13:30 Iv Access IV DIRECTED JR Insulin Aspart 0 units 06/09/24 06:00 06/12/24 06:40 Insulin Aspart 300 Units/3 Ml Pen SC 9 units Q6H JR Administration Protocol Lurasidone HCl 80 mg 06/09/24 08:30 06/12/24 07:52 Lurasidone 40 Mg Tab PO 80 mg DAILY JR Administration Methadone HCl 77 mg 06/10/24 08:30 06/12/24 07:50 Methadone Liquid 10 Mg/Ml PO 77 mg DAILY JR Administration Mirtazapine 15 mg 06/08/24 20:00 06/11/24 20:29 Mirtazapine 15 Mg Tab PO 15 mg HS JR Administration Nicotine 21 mg 06/08/24 16:10 06/12/24 07:53 Nicotine 21 Mg/24 Hr Patch TD 21 mg DAILY JR Administration Nystatin 15 gm 06/11/24 21:00 06/12/24 09:38 Nystatin Powder 15 Gm Jar TP 1 applic BID JR Administration Ondansetron HCl 4 mg 06/08/24 13:26 06/12/24 04:43 Ondansetron 4 Mg/2 Ml Vial IVP 4 mg Q4H PRN PRN Administration Pantoprazole Sodium 40 mg 06/09/24 08:30 06/12/24 07:51 Pantoprazole 40 Mg Vial IVP 40 mg DAILY JR Administration Pregabalin 200 mg 06/09/24 14:00 06/12/24 07:52 Pregabalin 100 Mg Cap PO 200 mg TID JR Administration Sodium Chloride 0 ml 06/08/24 13:26 06/11/24 13:17 Normal Saline Flush 10 Ml Syr IVP 10 ml PRN PRN Administration Sodium Chloride 0 ml 06/08/24 20:00 06/12/24 09:38 Normal Saline Flush 10 Ml Syr IVP 20 ml BID JR Administration Sodium Chloride 0 ml 06/08/24 13:26 06/09/24 08:12 Normal Saline 10 Ml Vial IJ 10 ml DIRECTED PRN Administration PFSH Active Problems Active Problems: Problem Status Onset Code Acute gallstone pancreatitis Acute K85.10 Cholelithiasis Acute K80.20 Acute pancreatitis Acute K85.90 Corneal abrasion Acute S05.00XA Cortical age-related cataract, left eye Resolved H25.012 Obstructive sleep apnea of adult Acute G47.33 Muscle spasm of left lower extremity Acute M62.838 Muscle spasm of back Acute M62.830 Diabetic cataract of right eye Acute E11.36 Ulcer of right foot limited to breakdown of skin Acute 04/16/23 L97.511 Ulcer of left foot, limited to breakdown of skin Acute 04/16/23 L97.521 Iron deficiency Acute E61.1 Migraine Chronic G43.909 Chronic constipation Chronic K59.09 Opioid use disorder Chronic F11.90 Type 2 diabetes mellitus, with long-term current use of insulin Chronic E11.9, Z79.4 Obesity Chronic E66.9 Cirrhosis of liver Chronic K74.60 Asthma Chronic J45.909 Tobacco use disorder Chronic F17.200 Poorly controlled type 2 diabetes mellitus Chronic 03/23/18 E11.65 Polypharmacy Chronic 12/14/15 Z79.899 Mild nonproliferative diabetic retinopathy associated with type 2 diabetes mellitus Chronic 01/22/16 E11.3299 Mental health disorder Chronic F99 Hypomagnesemia Chronic 09/30/16 E83.42 Hyperlipidemia Chronic 09/30/16 E78.5 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 03/12/17 B00.9 Gastroparesis Chronic 06/28/16 K31.84 Depressive disorder Chronic 10/31/14 F32.9 Chronic nausea Chronic R11.0 Atrophic vaginitis Chronic 07/09/17 N95.2 Medical History Medical History Chronic fatigue (07/19/15) Osteomyelitis Dyspareunia in female (07/09/17) Punctate keratitis of both eyes Ulcer of foot due to secondary diabetes Umbilical hernia (03/11/18) 03/17/2018: [facility] 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 Ferrer Tobacco Smoking/Tobacco Use Status: Current every day Tobacco Type: cigarettes Smoking packs per day: 1 Smoking cigarettes per day: 20.0 Passive smoking exposure: Yes Alcohol Alcohol Intake: never Substance Use Substance use: Occasionally Substance use type: former substance user and marijuana Details: Pt. states no additional rec drugs in over 11 years Vital Signs and Lab Results Vital Signs Most Recent Vital Signs in EMR: Most Recent Vital Signs Temp Pulse Resp BP Pulse Ox 36.5 C 102 H 18 181/85 H 97 06/12/24 08:57 06/12/24 08:57 06/12/24 08:57 06/12/24 08:57 06/12/24 08:57 Point of Care Results Point of Care Results: Finger Stick Blood Glucose 222 06/12/24 07:49 Lab Results 06/12/24 08:50 06/12/24 08:50 Blood Type / Crossmatch: 2 No Data to Display Complete Blood Count: 2 White Blood Count 14.31 10^3/uL (4.4-10.8) H 06/12/24 08:50 Red Blood Count 5.79 10^6/uL (3.93-5.22) H 06/12/24 08:50 Hemoglobin 14.2 g/dL (11.2-15.7) 06/12/24 08:50 Hematocrit 46.5 % (36.0-46.0) H 06/12/24 08:50 Platelet Count 222 10^3/uL (130-400) 06/12/24 08:50 Complete Metabolic Panel: 2 Sodium 136 mmol/L (136-145) 06/12/24 08:50 Potassium 3.6 mmol/L (3.5-5.1) 06/12/24 08:50 Chloride 100 mmol/L (98-107) 06/12/24 08:50 Carbon Dioxide 12.0 mmol/L (21.0-32.0) L 06/12/24 08:50 BUN 13 mg/dL (7-18) 06/12/24 08:50 Creatinine 1.2 mg/dL (0.55-1.02) H 06/12/24 08:50 Est GFR (CKD-EPI 2020) 56.89 (mL/min/1.73m2) 06/12/24 08:50 Magnesium 1.8 mg/dL (1.8-2.4) 06/07/24 22:25 Calcium 10.2 mg/dL (8.5-10.1) H 06/12/24 08:50 Albumin 3.3 g/dL (3.4-5.0) L 06/12/24 08:50 Glucose 201 mg/dL (74-106) H 06/12/24 08:50 Hemoglobin A1c 10.6 % (<5.7) H 06/08/24 14:30 C-Reactive Protein 20.92 mg/dL (<or=0.5) H 06/08/24 14:30 Liver Function Panel: 2 Alanine Aminotransferase (ALT/SGPT) 18 U/L (14-59) 06/12/24 08: 50 Aspartate Amino Transf (AST/SGOT) 20 U/L (15-37) 06/12/24 08:50 Gamma Glutamyl Transpeptidase 77 U/L (5-55) H 06/08/24 14:30 Coagulation Panel: 2 INR International Normalized Ratio 1.1 (0.9-1.1) 06/08/24 14:3 0 Prothrombin Time 10.9 sec (9.1-11.1) 06/08/24 14:30 Cardiac Panel: 2 No Data to Display Arterial Blood Gas: 2 No Data to Display Venous Blood Gas: 2 No Data to Display Pancreas Panel: 2 Lipase 101 U/L (16-77) H 06/12/24 08:50 Thyroid Panel: 2 No Data to Display Infectious Disease: 2 No Data to Display Blood Cultures: 2 No Data to Display Toxicology Panel: 2 No Data to Display Panel: 2 No Data to Display Imaging and Studies Imaging and Studies Study information below may be from another EMR and interpreted by another provider. Please see original notes in EMR for more complete details. EKG Summary: Sinus rhythm...normal P axis, V-rate 60- 99 Low voltage, extremity and precordial leads...extremity<0.5mV, precordial<1.0mV sinus rhtyhm, normal axis, normal intervals, non ischemic I have reviewed and I agree with the emergency room physician's ECG interpretation. Electronically signed by: <Electronically signed by Tram Underwood M.D. in [place]> 11/24/23 0820 Cosigned by: Pulmonary Function Summary: IMPRESSION: While there is no evidence of obstructive or restrictive lung disease there is isolated elevation in airways resistance, which may signal early developing obstructive lung disease; therefore, clinical correlation recommended. If the diagnosis of asthma is in question, proceeding with Methacholine Challenge testing may prove to be useful. 01/28/15 Anesthesia Assessment and Plan Anesthesia History Personal History: No History of Anesthesia Complications Family History: No Family History of Anesthesia Complications Exercise Tolerance Exercise Tolerance: Metabolic Equivalents<4 Pertinent Negatives Pertinent Negatives: No Symptoms of GERD Cardiac & Pulmonary Exam Cardiac Exam: Heart Murmur Present (? systolic murmur) Pulmonary Exam: Clear Bilateral Breath Sounds Cardiac and Pulmonary Comment:: decreased bases, 1.5-2 pack/day smoker Implantable Cardiac Device Does patient have a Pacemaker or an ICD?: No Airway Exam Known Difficult Airway: No Mallampati Class: 3 Mouth Opening: Normal (> 3cm) Thyromental Distance: Greater than 3 cm Neck Range of Motion: Full ROM Neck Circumference: Thick Teeth Condition: Edentulous ASA Classification ASA Score: ASA 4 Emergency Case?: No NPO Status NPO Status: NPO Clears >2 hours, Solids >8 hours Status Status: History of Hysterectomy Anesthesia Plan Resuscitation Status: Full Code Anesthesia Technique: General Anesthesia Airway Planned: Endotracheal Tube Monitors Used: Standard Monitors, Arterial Line and Central Line Preoperative Comments:: Complex medical patient with sub-optimal medical condition to include elevated liver enzymes and pancreatic lipase level. No documented history of cardiac disease but does have a ? systolic murmur. Heavy smoker, obese and history of drug abuse. IV access inadequate for surgery. Will work on mid-line or central line placement. Pt consented for GETA, +/- central line, and possible ICU admission post-op depending on hemodynamic stability and pulmonary function post-op. Pt is high risk d/t comorbidities, ASA 4. Elma Alcaraz CRNA
[2024-06-12] MEDS: Lactated Ringers 1,000 ML 100 ML IV ×2 (10:32→15:46)
--- NOTE | 2024-06-12 11:08 | W.PM.OP ---
Date of service: 06/12/24 Time of Service: 12:38 Operative Note Operative Note Refer to Anesthesia Record Procedure Description: Procedures performed: 1. Laparoscopic cholecystectomy 2. Laparoscopic TAP block Pre-op diagnosis: Gallstone pancreatitis Postoperative diagnosis: Same Surgeon: Jose Reyes Anesthesia: Naman Inspector Eyeglass Frames: Molly Indication for procedure: 43-year-old woman who has had recurrent attacks of pancreatitis in the setting of gallstones. FINDINGS: Nondistended and overall non-inflamed gallbladder. Normal biliary anatomy Specimens: 1. Gallbladder Complications: None Blood loss: 5-10 cc Urine output: Not measured Implants/drains: None Procedure in detail: Patient gave written consent and was in agreement with the indications, the likely benefits as well as the potential risks of surgery. She was taken back to the operating room where anesthesia was administered which was tolerated well. Anesthesia was concerned about her IV access and hand to place an U/S guided midline. She was positioned supine on the operating room table and we then prepped and draped in sterile fashion. We confirmed DVT prophylaxis as well as antibiotics had been administered. When we were all in agreement with our timeout we started the procedure. Local anesthetic was injected at the umbilicus. A small stab incision was made within the umbilicus and a 5 mm Optiview trocar was used to enter the abdominal cavity through this. Insufflation was performed which was tolerated well. 2 more trocars were placed under direct visualization in the right hemiabdomen. Local anesthetic was also given in each of the sites. A 12 mm port was placed in the epigastrium under visualization. I then performed a bilateral laparoscopic partial guided TAP block with 120 cc mixture of Exparel, Marcaine and saline. Unfortunately at this point the procedure the patient's IV access was again lost and we had to stop until anesthesia placed a central line. Once this was done we started the actual operation. The fundus of the gallbladder was grasped and retracted towards the patient's left shoulder cephalad. There were omentum adhesions and duodenal adhesions that were taken down sharply using a LigaSure. This nicely exposed the biliary plate and the relevant anatomy. A combination of blunt and electrocautery dissection was performed isolating the cystic duct and the cystic artery. The entire cystic plate was cleared off confirming only 2 structures seen going into the gallbladder. These were clipped and divided. I then removed the rest of the gallbladder off the liver bed using electrocautery. It was placed in an Endo Catch bag and removed from the abdominal cavity. The specimen was passed off the back table and placed in formalin. I then checked the gallbladder fossa for any bile leaking or any bleeding. Hemostasis was excellent and there was no evidence of any bile leaking from the bed. The 12 mm port site was then closed with 0 Vicryl in the fascia using a Mike-Julio. I rechecked for hemostasis 1 last time and it remained excellent. We released pneumoperitoneum. I removed the 5 mm trocars. The skin was closed with running Monocryl and Dermabond was placed on top of each site. Patient tolerated the procedure well. The sponge, instruments and sharps counts were correct x3 at the end of the procedure. She was extubated and taken to the PACU in hemodynamically stable condition.
[2024-06-12] MEDS: Normal Saline 20 ML VIAL (12:10)
[2024-06-12] MEDS: Bupivacaine 0.25% Pres-Free 30 ML VIAL (12:10)
[2024-06-12] MEDS: Bupivacaine LIPOSOME/PF 133 MG/10 ML VIAL IJ (12:10)
--- NOTE | 2024-06-12 12:24 | W.ANESVAS ---
Midline Placement Date Performed: 06/12/24 Procedure Time: 10:50 Requesting Provider: Rubio Reyes Procedure Location: Operating Room Sedation Given (Indicate Dose Given): No Sedation given Patient Mental Status: Performed under general anesthesia Sterility: Hand Hygiene, Surgical Cap, Surgical Mask, Sterile Gloves, Sterile Drape/Sheet, Eye Protection and Chlorhexidine Laterality: Right Insertion Site: Basilic Midline Device: PowerGlide Pro 18G Catheter Length: 10 cm Midline Procedure Procedure: Vessel accessed with needle, Guidewire placed with ease and Catheter placed without resistance Dressing: Tegaderm Applied Blood Return: Present Flushes: Easily Ultrasound: Sterile probe cover and gel used Ultrasound Image Saved?: Yes Number of Attempts (See previous attempts in note section): 1 Procedure Tolerated: No Complications Procedure Outcome: Unsuccessful Procedure Comment:: IV infusion not running well. Unable to draw blood back after initial draw. Removed cath and placed Right IJ line. Elma Alcaraz Performed By: Hussain Alcaraz
--- NOTE | 2024-06-12 12:28 | GB_PTH ---
PATIENT: Denise Gentile LOC: ICU U#:[id number] AGE/SX: 43/F ROOM: ICU.221 RE06/08/[address]: Molly Brito : 1980 BED: A DIS: 06/13/2024 SPEC #: [id number] RECD: 06/14/24 12:48 STATUS: BARRON REQ #: [id number] JENNYFER: 06/12/24 12:[address]: Molly Brito DEPT: Surgical Specimen RECD BY: Judith Jansen ENTERED: 06/14/24 12:49 SP TYPE: GB OTHR DR: Lorena Mann APRN Tissues: 1 - GALLBLADDER Procedures: GROSS AND MICRO LEVEL 3 Comments: [id number]
--- NOTE | 2024-06-12 12:28 | ANES.VASC_ITS ---
Central Venous Line Placement Date Performed: 06/12/24 Procedure Time: 11:00 Procedure Location: Operating Room Requesting Provider: Rubio Reyes Standard Monitors Applied: ECG, Blood Pressure, SpO2, ETCO2 and See EMR for corresponding vital signs Pt. Position: Supine Timeout Performed: Yes Sedation Given (Indicate Dose Given): No Sedation given Patient Mental Status: Performed under general anesthesia Sterility: Hand Hygiene, Surgical Cap, Surgical Mask, Sterile Gloves, Sterile Drape/Sheet, Sterile Gown, Eye Protection and Chlorhexidine Laterality: Right Insertion Site: Internal Jugular (IJ) Central Line Type: 7 Wallisian Insertion Procedure: Vessel accessed with needle, Guidewire placed with ease, Extension tubing fills with blood, then empties easily with gravity, Dilator placed without resistance, Introducer/Catheter placed without resistance, Guidewire removed and Claves placed, blood withdrawn, ports flushed and clamped Dressing: Sorbaview Dressing Placed, Mastisol Used and Sutured in Place Catheter Depth at Skin (cm): 15 Placement Confirmation: Confirmation X-Ray Ordered Ultrasound: Sterile probe cover and gel used Ultrasound Image Saved?: Yes Number of Attempts (See previous attempts in note section): 1 Procedure Tolerated: No Complications and Patient tolerated well Procedure Outcome: Successful Performed By: Hussain Alcaraz
--- NOTE | 2024-06-12 13:40 | W.ANESPOSTOP ---
Postoperative Evaluation Date, Time and Location Date Performed: 06/12/24 Time Performed: 13:40 Patient Location: Intensive Care Unit Vital Signs Most Recent Imported Vital Signs: Most Recent Vital Signs Temp Pulse Resp BP Pulse Ox 36.4 C L 98 H 16 159/73 H 97 06/12/24 13:17 06/12/24 13:15 06/12/24 13:16 06/12/24 13:15 06/12/24 13:16 Pain Score Most Recent Pain Score: Most Recent Pain Score Pain Level [Abdomen] 06/12/24 06:05 Pain Level 06/12/24 08:57 Assessment Mental Status: Arousable with meaningful communication (Non-verbal) Airway and Respiratory Function: Patent airway with normal (patient baseline) respiratory exam Cardiovascular Function: Hemodynamically Stable Hydration Status: Adequately Hydrated Nausea & Vomiting: No Nausea or Vomiting Pain: Other (unable to assess d/t LOC) Peripheral Nerve Block: Patient did not receive a nerve block
--- NOTE | 2024-06-12 14:48 | DI.VRAD_ITS ---
PROCEDURE INFORMATION: Exam: XR Chest Exam date and time: 06/12/2024 1:09 PM Age: 43 years old Clinical indication: Other: Central line placement. Right ij TECHNIQUE: Imaging protocol: Radiologic exam of the chest. Views: 1 view. COMPARISON: CR XR CHEST 2V PA LATERAL 16/07/2023 12:31 FINDINGS: Tubes, catheters and devices: EKG wires overlie the chest. Right IJ central line in place with the tip in the superior vena cava. Lungs: Low lung volumes. Mild reticular markings at the lung bases consistent with atelectasis. No focal consolidation. Pleural spaces: Unremarkable. No pleural effusion. No pneumothorax. Heart/Mediastinum: Cardiomegaly. Bones/joints: Unremarkable for patient's age. IMPRESSION: Right IJ line in place with the tip in the SVC. Dictated and Authenticated by: Tabby Hughes MD. Ordering:JUDAH Nixon MD
[2024-06-12] MEDS: Enoxaparin 40 MG/0.4 ML SYR SC (15:39)
[2024-06-12] MEDS: levoFLOXacin 750 MG/150 ML BAG 100 MG IVPB (15:53)
[2024-06-12] MEDS: cloNIDine 0.1 MG TAB 0.2 MG PO (19:32)
[2024-06-12] MEDS: Mirtazapine 15 MG TAB PO (19:32)
[2024-06-12] MEDS: Budesonide/Formoterol 160/4.5 6 GM 60 PUFF INH IH (19:45)
[2024-06-13] VITALS (7 sets, daily range): BP systolic 161–167; BP diastolic 72–90; PULSE 94–103; RESP 15–18; TEMP 36.5–37.2; O2SAT 93–99
[2024-06-13] MEDS: Insulin Aspart 300 UNITS/3 ML PEN SC ×2 (00:25→06:08)
[2024-06-13] MEDS: Ondansetron 4 MG/2 ML VIAL IVP ×3 (00:45→08:41)
[2024-06-13] MEDS: ACETAMINOPHEN 1,000 MG/100 ML BTL 400 MG IVPB ×2 (02:17→08:09)
[2024-06-13] MEDS: Lactated Ringers 1,000 ML 100 ML IV (04:04)
[2024-06-13] MEDS: Budesonide/Formoterol 160/4.5 6 GM 60 PUFF INH IH (07:55)
[2024-06-13] MEDS: Nicotine 21 MG/24 HR PATCH TD (08:08)
[2024-06-13] MEDS: Methadone Liquid 10 MG/ML 77 MG PO (08:09)
[2024-06-13] MEDS: Empaglifozin 25 MG TAB PO (08:10)
[2024-06-13] MEDS: Lurasidone 40 MG TAB 80 MG PO (08:10)
[2024-06-13] MEDS: Pantoprazole 40 MG VIAL IVP (08:10)
[2024-06-13] MEDS: Pregabalin 100 MG CAP 200 MG PO (08:10)
[2024-06-13] MEDS: Normal Saline Flush 10 ML SYR IVP (08:11)
[2024-06-13] MEDS: Nystatin POWDER 15 GM JAR TP (08:31)
--- NOTE | 2024-06-13 11:28 | W.PM.DS.N ---
Date of service: 06/13/24 Time of Service: 11:29 DS: Diagnosis Discharge Diagnosis (1) Acute gallstone pancreatitis: Status: Acute Asessment and Plan: 43-year-old woman who had gallstone pancreatitis. She has many chronic medical comorbid conditions at baseline. Today she is postop day 1 from laparoscopic cholecystectomy. She is hemodynamically stable and doing well. Definitely at her baseline conditions. She is eager to go home and is tolerating p.o. intake, having good urinary function, good oxygenation on room air and has not required any narcotic pain medication for more than 48 hours. She has pretty severe gastroparesis at baseline and is dependent on Reglan. I started that again for her this morning. Discharge Plan Disposition Patient Disposition: Home Condition: Improving Discharge Details Reason For Visit: Acute Gallstone Pancreatitis/Cholecystitis Admit Date/Time: 06/08/24 13:26 Admit Provider: Molly Brito Attending Provider: Molly Brito Primary Care Provider: Lorena Mann Hospital Course Hospital Course: 43-year-old woman presented with recurrent gallstone pancreatitis. Over the course of a few days this resolved and her lipase down?trended and her pancreatitis pain dissipated. On the day before her gallbladder surgery, she was not taking any more narcotic pain medication though she is dependent on methadone at baseline and has a history of opioid abuse. She underwent laparoscopic cholecystectomy. The procedure was uneventful. On the morning of postoperative day 1 she was tolerating a diet, had subjective improvement in her overall discomfort, was not requiring any pain medication and was thus discharged home with all of her usual oral medications. In particular, she has a history of acquired gastroparesis secondary to severely uncontrolled diabetes. This is dependent on both Reglan and Zofran. Home Meds and New Rx's Prescriptions: Continued methadone 10 mg/mL concentrate 77 mg PO DAILY Patient Comments: 77 mg lorazepam 0.5 mg tablet 0.5 mg PO DAILY PRN albuterol sulfate 90 mcg/actuation HFA aerosol inhaler 1 - 2 puff Inhalation Q4-6H PRN Qty: 1 1RF Rx Instructions: DISPENSE ALBUTEROL INHALER BRAND COVERED BY INSURANCE metoclopramide HCl 10 mg tablet 10 mg PO TID PRN Rx Instructions: administer 30 minutes before meals ondansetron 8 mg tablet,disintegrating 8 mg PO BID PRN (Reason: nausea and vomiting) Qty: 60 11RF pregabalin 200 mg capsule 200 mg PO TID Qty: 270 0RF celecoxib 200 mg capsule See Rx Instructions .ROUTE .COMPLEX Qty: 60 5RF Dose Instruction: TAKE 1 CAPSULE BY MOUTH TWICE DAILY(FOR BACK AND LEG PAIN, DO NOT MIX WITH OTHER NSAIDS) Rx Instructions: TAKE 1 CAPSULE BY MOUTH TWICE DAILY(FOR BACK AND LEG PAIN, DO NOT MIX WITH OTHER NSAIDS) gabapentin 300 mg capsule 300 mg PO HS PRN (Reason: back pain) Qty: 60 0RF Gvoke HypoPen 2-Pack 1 mg/0.2 mL auto-injector 1 mg subcut ONCE Qty: 0.4 1RF Rx Instructions: HYPOGLYCEMIA; as a single dose; may repeat once after 15 minutes if no response methocarbamol 500 mg tablet 1,000 mg PO HS PRN (Reason: muscle spasm) Qty: 90 0RF Rx Instructions: Use lowest effective dose for shortest duration for muscle spasm ipratropium-albuterol 0.5 mg-3 mg(2.5 mg base)/3 mL solution for nebulization 3 ml inhalation QID PRN (Reason: wheezing) Qty: 180 1RF Rx Instructions: During asthma exacerbation, may use preventatively TID, titrating down to QID PRN as wheeze & SOB improve. fluticasone propion-salmeterol [Advair Diskus] 250-50 mcg/dose blister with device 1 inh inhalation BID Qty: 60 1RF Rx Instructions: Please use this during asthma exacerbations, wean off as shortness of breath & wheeze improve. alcohol swabs [Alcohol Pads] Pads, Medicated 1 pad Topical QID Qty: 400 3RF naloxone [Narcan] 4 mg/actuation spray,non-aerosol 4 mg intranasal Q2M PRN (Reason: opioid overdose) Qty: 2 0RF Rx Instructions: spray 1 dose into ONE nostril; alternate nostrils w each dose until help arrives Jardiance 25 mg tablet 25 mg PO DAILY AM Qty: 90 3RF Rx Instructions: Administer once daily in the morning, with or without food atorvastatin 10 mg tablet 10 mg PO QHS Qty: 90 0RF acetaminophen 500 mg tablet 500 - 1,000 mg PO Q8H MDD 3000 mg PRN (Reason: fever or pain) Qty: 180 0RF Rx Instructions: 1 month supply (DME) pen needle, diabetic [BD Ultra-Fine Yamini Pen Needle] 32 gauge x 5/32 needle See Rx Instructions .ROUTE .COMPLEX Qty: 100 0RF Dose Instruction: USE TO ADMINISTER INSULIN ONCE DAILY Rx Instructions: USE TO ADMINISTER INSULIN ONCE DAILY (DME) blood-glucose meter Misc See Rx Instructions .Route Qty: 1 0RF Rx Instructions: One Touch meter (DME) lancets Misc See Rx Instructions .ROUTE .MEDSUPPLY Qty: 400 3RF Rx Instructions: As directed to check blood glucose four times daily. On insulin. Dispense one touch ultra (DME) Dexcom G6 Transmitter Device See Rx Instructions .Route Qty: 3 3RF Rx Instructions: As directed insulin aspart U-100 [Novolog FlexPen U-100 Insulin] 100 unit/mL (3 mL) insulin pen 15 unit subcut AC Qty: 15 3RF Rx Instructions: 10-15 units sliding scale before meals insulin degludec [Tresiba FlexTouch U-100] 100 unit/mL (3 mL) insulin pen 140 unit subcut DAILY Rx Instructions: 03/05/24--decr by 10U per Dr Foster- valacyclovir 500 mg tablet 500 mg PO DAILY Qty: 90 3RF (DME) Blood Glucose Test Strip See Rx Instructions .MEDSUPPLY Qty: 400 3RF Rx Instructions: As directed to check blood glucose four times daily. On insulin. Dispense one touch ultra (DME) Dexcom G6 Sensor Device See Rx Instructions .ROUTE .COMPLEX Qty: 3 6RF Dose Instruction: USE DIRECTED Rx Instructions: USE DIRECTED magnesium oxide 400 mg (241.3 mg magnesium) tablet 400 mg PO BID Qty: 180 0RF omeprazole 40 mg capsule,delayed release(DR/EC) 40 mg PO DAILY Qty: 90 3RF sumatriptan succinate 100 mg tablet 100 mg PO ONCE MDD 200 mg PRN (Reason: migraine headache) Qty: 30 2RF Rx Instructions: A second dose can be taken if no response after 2 hours nystatin 100,000 unit/gram powder 1 applic Topical BID PRN (Reason: fungal skin infection) Qty: 30 3RF Rx Instructions: Apply powder to affected area under R breast twice daily clonidine HCl 0.2 mg tablet 0.2 mg PO HS Patient Comments: TAKE 1 TABLET BY MOUTH EVERY NIGHT AT BEDTIME mirtazapine 15 mg tablet 15 mg PO HS Ajovy Autoinjector 225 mg/1.5 mL auto-injector 225 mg subcut QMONTH Botox 100 unit recon soln 300 unit IM ONCE Rx Instructions: divided among affected muscles hydroxyzine pamoate 50 mg capsule 50 mg PO BID PRN Patient Comments: TAKE ONE CAPSULE BY MOUTH TWICE A DAY dextroamphetamine-amphetamine 20 mg tablet 20 mg PO TID PRN Patient Comments: TAKE ONE TABLET BY MOUTH THREE TIMES A DAY NEEDED lurasidone 80 mg tablet 80 mg PO DAILY Patient Comments: TAKE ONE TABLET BY MOUTH EVERY DAY WITH AT LEAST 350 CALORIES Discharge Instructions Additional Instructions: Incisions: Keep clean and dry but they do not need to be covered. It is okay to shower but no tub bathing for 1 week. You can peel the glue off after 1 week. Take any bandages off tomorrow. Activity: As tolerated. There are no restrictions. Return to work, as tolerated in the next few days. If you need a work note call the surgery office. Diet: Your regular diet as tolerated Medications: Resume all of your usual/regular home medications. Do not use any narcotics. Restart taking your Reglan as soon as possible as well as all of your diabetes and blood sugar medicines. Follow-up: Follow-up is optional. If you are having any issues or concerns call the surgery office immediately. If you want to have a routine follow-up that is perfectly fine and you can call and schedule an. If everything is otherwise going well, you do not need to follow-up. Pain control: Take Tylenol, 1000 mg, every 6 hours on a schedule for the next 3 days. You can use ibuprofen in addition to Tylenol and use the narcotic medication only as necessary for pain preventing you from sleeping. Do not take any narcotics. Overall: Symptoms should not be worsening. If you have any difficulty breathing or you have return of symptoms of brought you to the hospital or your pain is otherwise worsening each day and you should call the doctor's office or come into the hospital to be checked out. Activity:: Activity as Tolerated Equipment/Supplies:: No Equipment Needed Diet:: Normal Diet Discharge Orders Discharge Orders: Discharge Order (Routine); Ordered 06/13/24 Ordered By: Rubio Reyes DS: Summary Time Spent with Patient providing and/or coordinating discharge services: Less than 30 minutes Status at Discharge Functional status at discharge: independent ambulation Overall status at discharge: patient is back to baseline Mental Status: mental status grossly normal Speech and Movement: speech and movement normal Mood: congruent mood Affect: normal affect Quality:SDOH Health Related Social Needs: No Data to Display Exam Narrative Exam Narrative: Gen: Non-toxic, comfortable and interactive Neuro: Alert and oriented x3 Psych: Good mood and affect. Reasonable insight and understanding into condition. Chest: Non-labored breathing, no wheezing, no visible shortness of breath. Heart: Regular Abdomen: Soft, obese, nondistended, no significant tenderness. Glue/dressings/incisions are all intact. Psych Mental Status: mental status grossly normal Speech and Movement: speech and movement normal Mood: congruent mood Affect: normal affect DS: Data Vitals/I&O Vitals and I&O: Vital Signs Temperature 97.7 F 06/13/24 07:30 Temperature Source Temporal Artery Scan 06/12/24 16:06 Pulse 98 H 06/13/24 07:30 Pulse Rhythm Regular 06/08/24 14:47 Pulse 100 H 06/13/24 02:00 Respiratory Rate 18 06/13/24 07:30 Respiratory Effort Non-Labored 06/12/24 13:30 Respiratory Depth Normal 06/08/24 14:47 Respiratory Pattern Normal 06/12/24 13:30 Blood Pressure 164/81 H 06/13/24 07:30 Blood Pressure Mean 104 06/13/24 07:30 Pulse Oximetry 97 06/13/24 07:30 Respiratory End-tidal CO2 21 06/12/24 13:16 Oxygen Delivery Method Room Air 06/12/24 19:45 Oxygen Flow Rate 0 06/12/24 19:45 Pain Level 0 06/12/24 13:30 Comment patient in bed with eyes closed, difficult to keep awake, reports pain but no nausea at this time, facial expression and body language appear relaxed 06/11/24 14:01 Intake & Output 06/12/24 06/12/24 06/13/24 11:59 23:59 11:59 Intake Total 220 / 2320 1999 / 2320 2168.333 / 2168.333 Output Total 1530 / 3240 1710 / 3240 Balance -1310 / -920 290 / -920 2168.333 / 2168.333 Weight 234 lb 6.4 oz 234 lb 5.622 oz Intake: IV 220 / 2320 1999 1668.333 / 1668.333 Oral 500 / 500 Output: Urine 1150 / 2850 1700 / 2850 Emesis 380 / 380 Estimated Blood Loss Other: Urine Color Yellow Yellow Urine Appearance Clear Clear Urine Odor Normal Normal Emesis Description Retching None Retching Clear/Water Bile Black Voiding Methods Toilet Bedside Commode [facility] All Active Problems (Updated 06/08/24 @ 16:13 by Molly Brito DO) Acute gallstone pancreatitis (Acute) Cholelithiasis (Acute) Acute pancreatitis (Acute) Corneal abrasion (Acute) Obstructive sleep apnea of adult (Acute) [facility] 12/23/23 Muscle spasm of left lower extremity (Acute) Muscle spasm of back (Acute) Diabetic cataract of right eye (Acute) Ulcer of right foot limited to breakdown of skin (Acute 04/16/23) [facility] Ulcer of left foot, limited to breakdown of skin (Acute 04/16/23) [facility] Iron deficiency (Acute) 03/2023 iron studies indicating deficiency (NOT anemic) Migraine (Chronic) [facility] Chronic constipation (Chronic) [facility] Opioid use disorder (Chronic) MAT with methadone Type 2 diabetes mellitus, with long-term current use of insulin (Chronic) With neuropathy & retinopathy (left, mild) Obesity (Chronic) Cirrhosis of liver (Chronic) [facility] Asthma (Chronic) Tobacco use disorder (Chronic) Started smoking age 9 Poorly controlled type 2 diabetes mellitus (Chronic 03/23/18) Polypharmacy (Chronic 12/14/15) Mild nonproliferative diabetic retinopathy associated with type 2 diabetes mellitus (Chronic 01/22/16) Mental health disorder (Chronic) Pt reports being diagnosed with bipolar disorder, disassociative disorder, anxiety, & multiple personality disorder Hypomagnesemia (Chronic 09/30/16) Hyperlipidemia (Chronic 09/30/16) 10-year ASCVD risk = unable to calculate due to not being age 40+ however dx T2DM, so Rx for statin 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 Jimenez [facility] 2023: [facility] Depressive disorder (Chronic 10/31/14) ADMISSION SUICIDAL THOUGHTS 06/13/14 OD ATTEMPTS IN PAST Chronic nausea (Chronic) EGD 04/16/16 Dr. 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) Medical History Chronic fatigue (07/19/15) Osteomyelitis Dyspareunia in female (07/09/17) Punctate keratitis of both eyes Ulcer of foot due to secondary diabetes Umbilical hernia (03/11/18) 03/17/2018: [facility] Premature surgical menopause JAD/BSO in late 20s, no HRT Hepatitis C 02/14/2016 labwork: undetectable RNA level Surgical History Status post total hysterectomy and bilateral salpingo-oophorectomy (~2006) noncancerous reasons Status post left foot surgery (10/2022) Left fourth metatarsal head excision for chronic ulcer, osteomyelitis ([facility]/Tamia Vidales, DPM) Status post section (~2003) EGD (04/16/16) Dr. Ferrer Family History Mother , 46yo due to kidney & liver failure due to alcohol Substance use disorder Alcohol use disorder Father , 62yo from ALS Substance use disorder Alcohol use disorder ALS (amyotrophic lateral sclerosis) Grandmother Colon cancer Paternal Paternal Uncle Cardiac arrest Substance use disorder Alcohol and Pain Medication Abuse Social History Smoking/Tobacco Use Status: Current every day Tobacco Type: cigarettes Smoking packs per day: 1 Smoking cigarettes per day: 20.0 Tobacco: How many years used: 33 Quit status: considering quitting Smoking risk assessment performed?: Yes Alcohol Intake: never Drug use: Occasionally Substance use type: former substance user and marijuana Details: Pt. 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 Pets and animals: Yes (1 dog, 4 cats) Pets and animals: cat(s) and dog(s) Sexually active: Yes Do you think of yourself as: straight/heterosexual Current gender identity: female Other: 09/2022: pt reports she is engaged What is your relationship status?: How often do you talk on the phone with friends or family?: three or more times per week How often do you get together with friends or relatives?: once per week How often do you attend lutheran or gnosticism services?: decline to answer Do you belong to any clubs or organized social groups?: no Panel score (0-1 are the most socially isolated patients): 2 What type of physical activity do you participate in: none Duration: decline to answer Frequency: decline to answer Seatbelt use: always Helmet use: No (No reason to wear one) Drive intox or ride w/intox team 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 Time Spent with Patient Time Spent with Patient: <45 minutes Time was spent: preparing to see the patient(eg.review tests), obtaining and/or reviewing separately otained hiistory, indepentently interpreting results, counseling the patient and care coordination
[2024-06-13] MEDS: Metoclopramide 10 MG TAB PO (11:48)
--- NOTE | 2024-06-13 15:53 | PDOC.CMDIS ---
Date of service: 06/13/24 Time of Service: 15:53 LACE Index Scoring Tool Questions: Length of Stay (in days): 4 - 6 Was the patient admitted via the E.D.?: Yes Comorbidities: Diabetes w/o Complication and Liver or Renal Disease E.D. Visits: 8 Answers: Total Score: 16 Risk of Readmission: High Risk Care Management Discharge Plan Reason for Hospitalization: acute gallstone pancreatitis, cholecystitis Discharge Plan: Denise returned home today with no new services. Her transported her home via private vehicle. She will follow up with surgical services, and her discharge plan of care. She was happy to be going home. Patient/Family Education Needs: Review discharge instructions and limitations, discussion of self care needs including ask me three. [facility] Health Related Social Needs: No Data to Display
== END 2024-06-13 12:00 | disposition home or self-care (01) | DRG 418 ==
LOC: ER 13:58 → MS 14:12 → ICU 06-12 13:55
PROVIDERS: Student in an Organized Health Care Education/Training Program; Surgery; Admitting Provider Surgery; Emergency Provider Emergency Medicine; PCP Nurse Practitioner Adult Health; Visit Provider Surgery
PROC: 0FT44ZZ Resection of Gallbladder, Percutaneous Endoscopic Approach (ICD-10-PCS; CPT 47562; principal; 2024-06-12 08:50)
DX: K80.00 Calculus of gallbladder with acute cholecystitis without obstruction (principal); E46 Unspecified protein-calorie malnutrition; F11.20 Opioid dependence, uncomplicated; J45.41 Moderate persistent asthma with (acute) exacerbation; N17.9 Acute kidney failure, unspecified; Z68.41 Body mass index [BMI] 40.0-44.9, adult; G47.33 Obstructive sleep apnea (adult) (pediatric); G43.909 Migraine, unspecified, not intractable, without status migrainosus; K59.09 Other constipation; Z79.4 Long term (current) use of insulin; K74.60 Unspecified cirrhosis of liver; E11.65 Type 2 diabetes mellitus with hyperglycemia; F17.210 Nicotine dependence, cigarettes, uncomplicated; Z79.899 Other long term (current) drug therapy; E83.42 Hypomagnesemia; E11.3299 Type 2 diabetes mellitus with mild nonproliferative diabetic retinopathy without macular edema, unspecified eye; E11.43 Type 2 diabetes mellitus with diabetic autonomic (poly)neuropathy; K31.84 Gastroparesis; F32.A Depression, unspecified; E78.5 Hyperlipidemia, unspecified; E66.01 Morbid (severe) obesity due to excess calories; E86.0 Dehydration
CPT/HCPCS: 47562; 00123; 36415; 36416; 36556; 71045; 80053; 82962; 83690; 85027; 94640; 96361; 96374; 99223; 99232; 99285; J1650; 76705; 82977; 83036; 85025; 85610; 86140; 88304; 94664; 94760; C9290; J0131; J0665; J1100; J1170; J1815; J1956; J2060; J2250; J2270; J2405; J2470; J2704

== ENCOUNTER 2024-06-14 18:56 | Inpatient (IN) | payer OTHER, SELFPAY ==
[2024-06-14] VITALS (29 sets, daily range): BP systolic 160–175; BP diastolic 79–97; PULSE 109–115; RESP 13–28; TEMP 35.9; O2SAT 97–100
--- NOTE | 2024-06-14 18:45 | RT.EKG_ITS ---
APPROVED REPORT Exam: Resting ECG Reason for Exam: Difficulty Breath Patient Location: E HR:114 bpm ECG Measurements Heart Rate 114 AXIS MI 149 P 82 QRSd 91 QRS 14 QT 291 T 113 QTc 402 Conclusion Sinus tachycardia, rate 114 Old infarct inf. <1mm ST elevation II, III, aVF without reciprocal changes
[2024-06-14 19:16] LABS: Abs Immature Grans 0.11 10^3/uL (0.0-0.06); Absolute Basophil Count 0.08 10^3/uL (0.0-0.2); Absolute Monocyte Count 1.12 10^3/uL (0.1-0.8); Absolute Neutrophil Count 12.63 10^3/uL (1.2-6.7); Basophils % 0.5 %; HCT 47.9 % (36.0-46.0); HGB 14.5 g/dL (11.2-15.7); Immature Grans % 0.7 %; Lymphocytes % 10.1 %; MCH 24.1 pg (27.0-33.0); MCHC 30.3 % (32.0-36.0); MCV 80 fL (80-95); MPV 11.2 fL (8.0-11.0); Monocytes % 7.2 %; Neutrophils % 81.5 %; Platelet Count 243 10^3/uL (130-400); RBC 6.02 10^6/uL (3.93-5.22); RDW 17.8 % (11.7-14.6); RDW-SD 48.2 fL
[2024-06-14 19:18] LABS: Absolute Lymphocyte Count 1.57 10^3/uL (1.2-3.4)
[2024-06-14] MEDS: Lactated Ringers 1,000 ML 1000 ML IV (19:18)
[2024-06-14] MEDS: Omnipaque 350 MG/ML 100 ML BTL IJ (19:22)
[2024-06-14] MEDS: Normal Saline - Diluent 50 ML VIAL IJ (19:22)
[2024-06-14 19:26] LABS: INR 1.1 (0.9-1.1)
--- NOTE | 2024-06-14 19:30 | RT.EKG_ITS ---
APPROVED REPORT Exam: Resting ECG Reason for Exam: Repeat Patient Location: E HR:115 bpm ECG Measurements Heart Rate 115 AXIS MS 159 P 143 QRSd 92 QRS 105 QT 315 T 99 QTc 435 Conclusion Sinus tachycardia, rate 115 No interval abnormalities Old infarct, inf. No STEMI
--- NOTE | 2024-06-14 19:30 | RT.EKG_ITS ---
APPROVED REPORT Exam: Resting ECG Reason for Exam: R. sided Patient Location: E HR:112 bpm ECG Measurements Heart Rate 112 AXIS PA 169 P 146 QRSd 87 QRS 30 QT 297 T 162 QTc 407 Conclusion RIGHT SIDED EKG Sinus tachycardia, rate 112 No interval abnormalities Old infarct, inf. No STEMI
--- NOTE | 2024-06-14 19:30 | W.ED.GENAD ---
Discharge Plan Disposition Patient Disposition: Admit to [facility] Condition: Fair Discharge Details Chief Complaint: AMS/LOC Clinical Impression: Diabetic ketoacidosis, Gastroparesis, Hyperlipidemia, Poorly controlled type 2 diabetes mellitus, Obstructive sleep apnea of adult, Acute postoperative abdominal pain Primary Care Provider: Lorena Mann ED Provider: Aspen Perry Home Meds and New Rx's Prescriptions: No Action methadone 10 mg/mL concentrate 77 mg PO DAILY Patient Comments: 77 mg lorazepam 0.5 mg tablet 0.5 mg PO DAILY PRN albuterol sulfate 90 mcg/actuation HFA aerosol inhaler 1 - 2 puff Inhalation Q4-6H PRN Qty: 1 1RF Rx Instructions: DISPENSE ALBUTEROL INHALER BRAND COVERED BY INSURANCE metoclopramide HCl 10 mg tablet 10 mg PO TID PRN Rx Instructions: administer 30 minutes before meals ondansetron 8 mg tablet,disintegrating 8 mg PO BID PRN (Reason: nausea and vomiting) Qty: 60 11RF pregabalin 200 mg capsule 200 mg PO TID Qty: 270 0RF celecoxib 200 mg capsule See Rx Instructions .ROUTE .COMPLEX Qty: 60 5RF Dose Instruction: TAKE 1 CAPSULE BY MOUTH TWICE DAILY(FOR BACK AND LEG PAIN, DO NOT MIX WITH OTHER NSAIDS) Rx Instructions: TAKE 1 CAPSULE BY MOUTH TWICE DAILY(FOR BACK AND LEG PAIN, DO NOT MIX WITH OTHER NSAIDS) gabapentin 300 mg capsule 300 mg PO HS PRN (Reason: back pain) Qty: 60 0RF Gvoke HypoPen 2-Pack 1 mg/0.2 mL auto-injector 1 mg subcut ONCE Qty: 0.4 1RF Rx Instructions: HYPOGLYCEMIA; as a single dose; may repeat once after 15 minutes if no response methocarbamol 500 mg tablet 1,000 mg PO HS PRN (Reason: muscle spasm) Qty: 90 0RF Rx Instructions: Use lowest effective dose for shortest duration for muscle spasm ipratropium-albuterol 0.5 mg-3 mg(2.5 mg base)/3 mL solution for nebulization 3 ml inhalation QID PRN (Reason: wheezing) Qty: 180 1RF Rx Instructions: During asthma exacerbation, may use preventatively TID, titrating down to QID PRN as wheeze & SOB improve. fluticasone propion-salmeterol [Advair Diskus] 250-50 mcg/dose blister with device 1 inh inhalation BID Qty: 60 1RF Rx Instructions: Please use this during asthma exacerbations, wean off as shortness of breath & wheeze improve. alcohol swabs [Alcohol Pads] Pads, Medicated 1 pad Topical QID Qty: 400 3RF naloxone [Narcan] 4 mg/actuation spray,non-aerosol 4 mg intranasal Q2M PRN (Reason: opioid overdose) Qty: 2 0RF Rx Instructions: spray 1 dose into ONE nostril; alternate nostrils w each dose until help arrives Jardiance 25 mg tablet 25 mg PO DAILY AM Qty: 90 3RF Rx Instructions: Administer once daily in the morning, with or without food atorvastatin 10 mg tablet 10 mg PO QHS Qty: 90 0RF acetaminophen 500 mg tablet 500 - 1,000 mg PO Q8H MDD 3000 mg PRN (Reason: fever or pain) Qty: 180 0RF Rx Instructions: 1 month supply (DME) pen needle, diabetic [BD Ultra-Fine Yamini Pen Needle] 32 gauge x 5/32 needle See Rx Instructions .ROUTE .COMPLEX Qty: 100 0RF Dose Instruction: USE TO ADMINISTER INSULIN ONCE DAILY Rx Instructions: USE TO ADMINISTER INSULIN ONCE DAILY (DME) blood-glucose meter Misc See Rx Instructions .Route Qty: 1 0RF Rx Instructions: One Touch meter (DME) lancets Misc See Rx Instructions .ROUTE .MEDSUPPLY Qty: 400 3RF Rx Instructions: As directed to check blood glucose four times daily. On insulin. Dispense one touch ultra (DME) Dexcom G6 Transmitter Device See Rx Instructions .Route Qty: 3 3RF Rx Instructions: As directed insulin aspart U-100 [Novolog FlexPen U-100 Insulin] 100 unit/mL (3 mL) insulin pen 15 unit subcut AC Qty: 15 3RF Rx Instructions: 10-15 units sliding scale before meals insulin degludec [Tresiba FlexTouch U-100] 100 unit/mL (3 mL) insulin pen 140 unit subcut DAILY Rx Instructions: 03/05/24--decr by 10U per Dr Foster- valacyclovir 500 mg tablet 500 mg PO DAILY Qty: 90 3RF (DME) Blood Glucose Test Strip See Rx Instructions .MEDSUPPLY Qty: 400 3RF Rx Instructions: As directed to check blood glucose four times daily. On insulin. Dispense one touch ultra (DME) Dexcom G6 Sensor Device See Rx Instructions .ROUTE .COMPLEX Qty: 3 6RF Dose Instruction: USE DIRECTED Rx Instructions: USE DIRECTED magnesium oxide 400 mg (241.3 mg magnesium) tablet 400 mg PO BID Qty: 180 0RF omeprazole 40 mg capsule,delayed release(DR/EC) 40 mg PO DAILY Qty: 90 3RF sumatriptan succinate 100 mg tablet 100 mg PO ONCE MDD 200 mg PRN (Reason: migraine headache) Qty: 30 2RF Rx Instructions: A second dose can be taken if no response after 2 hours nystatin 100,000 unit/gram powder 1 applic Topical BID PRN (Reason: fungal skin infection) Qty: 30 3RF Rx Instructions: Apply powder to affected area under R breast twice daily clonidine HCl 0.2 mg tablet 0.2 mg PO HS Patient Comments: TAKE 1 TABLET BY MOUTH EVERY NIGHT AT BEDTIME mirtazapine 15 mg tablet 15 mg PO HS Ajovy Autoinjector 225 mg/1.5 mL auto-injector 225 mg subcut QMONTH Botox 100 unit recon soln 300 unit IM ONCE Rx Instructions: divided among affected muscles hydroxyzine pamoate 50 mg capsule 50 mg PO BID PRN Patient Comments: TAKE ONE CAPSULE BY MOUTH TWICE A DAY dextroamphetamine-amphetamine 20 mg tablet 20 mg PO TID PRN Patient Comments: TAKE ONE TABLET BY MOUTH THREE TIMES A DAY NEEDED lurasidone 80 mg tablet 80 mg PO DAILY Patient Comments: TAKE ONE TABLET BY MOUTH EVERY DAY WITH AT LEAST 350 CALORIES HPI General Mode of arrival: EMS. Date/Time Provider Initiated Documentation: 06/14/24 19:01. Limitations to Documentation: no limitations. Information obtained by: patient, family and old records reviewed. HPI Narrative: HPI: This is a 43-year-old female patient with a past medical history most notable for gallstone pancreatitis for which she underwent cholecystectomy on 06/12, discharged from this hospital in stable condition yesterday, brought in by EMS for alteration in mental status and abdominal pain. The patient reports that she started to feel unwell last night, her noted that she was not acting normally for herself today, prompting him to call EMS. They noted that the patient was answering questions slowly, following simple commands but not at her baseline, which it is typically ANO x 4 and able to perform all activities of daily living without assistance. They did not note any fevers, and normal blood glucose was noted, and she did not have any respiratory depression or require any interventions prior to arrival at our facility. The patient endorses abdominal pain, no chest pain, is tachycardic but stating that she feels very thirsty. She has not had nausea or vomiting. She states that she has been taking her methadone without dosing changes or extra doses, smokes cigarettes but has not been drinking alcohol. EMS notes that their EKG automatic read suggested ischemia in the inferior leads, which they did not appreciate on their EKG, though the study was limited by artifact. Exam: Gen: Awake, sleepy and requiring simple, sometimes repetitive commands HEENT: Non-icteric sclera, pupils equal and reactive at 3 mm bilaterally Neck: Supple, no meningismus Lungs: No apparent respiratory distress, normal respiratory effort., Lung sounds clear and equal bilaterally without wheezes, rhonchi, rales CV: Appears well perfused, heart with tachycardic rate but regular rhythm Abdomen: Non-distended, surgical incisions with surrounding ecchymosis, no drainage. The patient has abdominal tenderness in the right upper quadrant but no rigidity, rebound, or guarding MSK: Moves 4 extremities without apparent limitation in ROM. The patient has no peripheral edema appreciated Skin: Visualized skin without rashes, cyanosis. Neuro: No obvious focal deficits or facial asymmetry. Answers questions appropriately, follows simple commands. Psych: Appropriate for situation. MDM: This is a 43-year-old female patient presenting for evaluation of altered mental status. My differential includes but is not limited to postoperative complications including intra-abdominal abscess, perforation, hemoperitoneum, pancreatic pseudocyst. I also considered ACS, including STEMI, NSTEMI, demand ischemia. Considered metabolic and electrolyte derangements, sepsis, bacteremia, pulmonary infection, urinary tract infection. Considered kidney injury, liver disease, intracranial hemorrhage, stroke, toxic encephalopathy, intoxication/withdrawal syndromes were also considered. Will obtain broad laboratory workup which include CBC, CMP, lipase, PT/INR, urinalysis, blood cultures, and procalcitonin. I will obtain imaging to include CT head, as well as CT abdomen and pelvis with contrast. Given the patient's tachycardia, low temperature, I will provide her with a dose of Zosyn for empiric antibiosis. She will receive a liter of IV fluids for rehydration. ED Course: Laboratory studies were reviewed by myself, showing a leukocytosis to 15 slightly increased from prior values at time of discharge. No anemia, no thrombocytopenia. Chemistry panel is notable for a mild elevation in her creatinine to 1.4, no increase in her liver enzymes from priors. She does have decreased bicarb to 7, worsened from discharge that she was notably acidotic throughout her hospital stay. She has an anion gap, lactate was normal. We did obtain a VBG, which showed a pH of 7.0 with a pCO2 of 18. The patient's troponin was noted to be elevated to 248, increasing to 270. I did repeat her EKG and obtain a right sided EKG, neither of which shows any evidence of ischemia or STEMI. Subsequent troponin noted to be 200, the patient did receive rectal aspirin, and I reached out to [facility] cardiology to discuss this finding. They feel that this is likely demand in the setting of her acute illness and did not recommend heparinization or acute intervention. The patient could undergo echocardiography to evaluate for wall motion abnormality. The patient had a head CT that was independently interpreted by myself and shows no evidence of intracranial hemorrhage. Her CT of her abdomen pelvis shows appropriate postoperative changes and historical fatty infiltration of the liver, no abscess, pancreatic necrosis, or other acute postoperative abnormalities to explain her symptoms. I did review this image with the general surgeon who does not see any indication for return to the OR, and believes that there is another etiology to account for her symptoms. Her urinalysis demonstrates ketonuria, no evidence of infection though she does have hematuria. I discussed this patient's case with the hospitalist, who recommends initiating DKA treatment given her metabolic acidosis, initiating event likely her recent intra-abdominal illness. Given the borderline blood sugar of 230 on last check, we will initiate the patient on dextrose containing maintenance fluids at 200 mL/h, and supplement with oral and intravenous potassium, 40 milliequivalents of each. I started her on an insulin drip at 2 units/kg/h to be started after potassium initiation. The patient was transferred from this department to the unit without incident, all further care per the admitting team. Aspen Perry MD Related Data Home Medications ?Medication ?Instructions ?Recorded ?Confirmed methadone 10 mg/mL oral concentrate 77 mg PO DAILY 02/12/19 06/14/24 atorvastatin 10 mg tablet 10 mg PO QHS #90 tabs 09/03/19 06/14/24 acetaminophen 500 mg tablet 500 - 1,000 mg (1 - 2 x 500 mg) PO 09/24/19 06/14/24 Q8H PRN fever or pain #180 tab-caps alcohol swabs (Alcohol Pads) 1 pad topical QID #400 ea 10/25/22 06/14/24 lorazepam 0.5 mg tablet 0.5 mg PO DAILY PRN 03/13/23 06/14/24 pen needle, diabetic 32 gauge x #100 ea 06/30/23 06/14/24 5/32 (BD Ultra-Fine Yamini Pen Needle) blood-glucose meter #1 ea 08/28/23 06/14/24 lancets #400 ea 08/28/23 06/14/24 blood-glucose transmitter (Dexcom #3 ea 09/25/23 06/14/24 G6 Transmitter device) clonidine HCl 0.2 mg tablet 0.2 mg PO HS 11/21/23 06/14/24 insulin aspart U-100 100 unit/mL 15 unit (0.15 mL) subcut AC #15 mL 01/05/24 06/14/24 (3 mL) subcutaneous pen (Novolog FlexPen U-100 Insulin aspart) naloxone 4 mg/actuation nasal 4 mg intranasal Q2M PRN opioid 02/13/24 06/14/24 spray (Narcan) overdose #2 ea insulin degludec 100 unit/mL (3 140 unit subcut DAILY 03/05/24 06/14/24 mL) subcutaneous pen (Tresiba FlexTouch U-100 insulin) empagliflozin 25 mg tablet 25 mg PO DAILY AM #90 tab-caps 04/05/24 06/14/24 (Jardiance) 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 04/12/24 06/14/24 #90 tab-caps blood sugar diagnostic (Blood #400 ea 04/26/24 06/14/24 Glucose Test strips) blood-glucose sensor (Dexcom G6 #3 ea 04/26/24 06/14/24 Sensor device) magnesium oxide 400 mg (241.3 mg 400 mg PO BID #180 tabs 04/26/24 06/14/24 magnesium) tablet mirtazapine 15 mg tablet 15 mg PO HS 05/03/24 06/14/24 omeprazole 40 mg capsule,delayed 40 mg PO DAILY #90 caps 05/20/24 06/14/24 release nystatin 100,000 unit/gram topical 1 applic topical BID PRN fungal 05/25/24 06/14/24 powder skin infection #30 grams sumatriptan succinate 100 mg tablet 100 mg PO ONCE PRN migraine 05/25/24 06/14/24 headache #30 tab-caps albuterol sulfate 90 mcg/actuation 1 - 2 puff inhalation Q4-6H PRN ##1 05/31/24 06/14/24 aerosol inhaler celecoxib 200 mg capsule See Rx Instructions .Route 05/31/24 06/14/24 .COMPLEX #60 caps fluticasone 250 mcg-salmeterol 50 1 inh inhalation BID #60 ea 05/31/24 06/14/24 mcg/dose blistr powdr for inhalation (Advair Diskus) gabapentin 300 mg capsule 300 mg PO HS PRN back pain #60 caps 05/31/24 06/14/24 glucagon 1 mg/0.2 mL subcutaneous 1 mg (0.2 mL) subcut ONCE #0.4 mL 05/31/24 06/14/24 auto-injector (Gvoke HypoPen 2-Pack) ipratropium 0.5 mg-albuterol 3 mg 3 ml inhalation QID PRN wheezing 05/31/24 06/14/24 (2.5 mg base)/3 mL nebulization #180 mL soln methocarbamol 500 mg tablet 1,000 mg (2 x 500 mg) PO HS PRN 05/31/24 06/14/24 muscle spasm #90 tabs metoclopramide HCl 10 mg tablet 10 mg PO TID PRN 05/31/24 06/14/24 ondansetron 8 mg disintegrating 8 mg PO BID PRN nausea and 05/31/24 06/14/24 tablet vomiting #60 tabs pregabalin 200 mg capsule 200 mg PO TID #270 tab-caps 05/31/24 06/14/24 fremanezumab-vfrm 225 mg/1.5 mL 225 mg subcut QMONTH 06/07/24 06/14/24 subcutaneous auto-injector (Ajovy) onabotulinumtoxinA 100 unit 300 unit IM ONCE 06/07/24 06/14/24 solution for injection (Botox) dextroamphetamine-amphetamine 20 20 mg PO TID PRN 06/08/24 06/14/24 mg tablet hydroxyzine pamoate 50 mg capsule 50 mg PO BID PRN 06/08/24 06/14/24 lurasidone 80 mg tablet 80 mg PO DAILY 06/08/24 06/14/24 Previous Rx's ?Medication ?Instructions ?Recorded atorvastatin 10 mg tablet 10 mg PO QHS #90 tabs 09/03/19 acetaminophen 500 mg tablet 500 - 1,000 mg (1 - 2 x 500 mg) PO 09/24/19 Q8H PRN fever or pain #180 tab-caps alcohol swabs (Alcohol Pads) 1 pad topical QID #400 ea 10/25/22 pen needle, diabetic 32 gauge x #100 ea 06/30/23 (BD Ultra-Fine Yamini Pen Needle) blood-glucose meter #1 ea 08/28/23 lancets #400 ea 08/28/23 blood-glucose transmitter (Dexcom #3 ea 09/25/23 G6 Transmitter device) insulin aspart U-100 100 unit/mL 15 unit (0.15 mL) subcut AC #15 mL 01/05/24 (3 mL) subcutaneous pen (Novolog FlexPen U-100 Insulin aspart) naloxone 4 mg/actuation nasal 4 mg intranasal Q2M PRN opioid 02/13/24 spray (Narcan) overdose #2 ea empagliflozin 25 mg tablet 25 mg PO DAILY AM #90 tab-caps 04/05/24 (Jardiance) 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 04/12/24 #90 tab-caps blood sugar diagnostic (Blood #400 ea 04/26/24 Glucose Test strips) blood-glucose sensor (Dexcom G6 #3 ea 04/26/24 Sensor device) magnesium oxide 400 mg (241.3 mg 400 mg PO BID #180 tabs 04/26/24 magnesium) tablet omeprazole 40 mg capsule,delayed 40 mg PO DAILY #90 caps 05/20/24 release nystatin 100,000 unit/gram topical 1 applic topical BID PRN fungal 05/25/24 powder skin infection #30 grams sumatriptan succinate 100 mg tablet 100 mg PO ONCE PRN migraine 05/25/24 headache #30 tab-caps albuterol sulfate 90 mcg/actuation 1 - 2 puff inhalation Q4-6H PRN ##1 05/31/24 aerosol inhaler celecoxib 200 mg capsule See Rx Instructions .Route 05/31/24 .COMPLEX #60 caps fluticasone 250 mcg-salmeterol 50 1 inh inhalation BID #60 ea 05/31/24 mcg/dose blistr powdr for inhalation (Advair Diskus) gabapentin 300 mg capsule 300 mg PO HS PRN back pain #60 caps 05/31/24 glucagon 1 mg/0.2 mL subcutaneous 1 mg (0.2 mL) subcut ONCE #0.4 mL 05/31/24 auto-injector (Gvoke HypoPen 2-Pack) ipratropium 0.5 mg-albuterol 3 mg 3 ml inhalation QID PRN wheezing 05/31/24 (2.5 mg base)/3 mL nebulization #180 mL soln methocarbamol 500 mg tablet 1,000 mg (2 x 500 mg) PO HS PRN 05/31/24 muscle spasm #90 tabs ondansetron 8 mg disintegrating 8 mg PO BID PRN nausea and 05/31/24 tablet vomiting #60 tabs pregabalin 200 mg capsule 200 mg PO TID #270 tab-caps 05/31/24 Allergies Allergy/AdvReac Type Severity Reaction Status Date / Time Penicillins Allergy Severe lip and Verified 06/08/24 11:53 facial swelling lamotrigine (From Lamictal) Allergy Unknown Skin Rash Verified 06/08/24 11:53 clindamycin AdvReac Severe Nausea & Verified 06/08/24 11:53 vomiting aspirin AdvReac Intermediate nausea/pain Verified 06/08/24 11:53 General Stated Complaint: AMS/LOC CARLOS: 3 Course Vital Signs Vital signs: Vital Signs Temperature 35.9 C L 06/14/24 18:53 Pulse 112 H 06/14/24 18:53 Respiratory Rate 16 06/14/24 18:53 Blood Pressure 160/83 H 06/14/24 18:53 Pulse Oximetry 100 06/14/24 18:53 Temperature 35.9 C L 06/14/24 18:53 Temperature Source Temporal Artery Scan 06/14/24 18:53 Pulse 112 H 06/14/24 18:53 Respiratory Rate 16 06/14/24 18:53 Blood Pressure 160/83 H 06/14/24 18:53 Blood Pressure Position Sitting 06/14/24 18:53 Pulse Oximetry 100 06/14/24 18:53 Oxygen Delivery Method Room Air 06/14/24 18:53 Oxygen Flow Rate 0 06/14/24 18:53 Lab/Test Results Lab/Test Results: 06/14/24 18:56 Blood Blood Culture - Pending 06/14/24 18:56 Blood Blood Culture - Pending Laboratory Tests Range/Units 06/14/24 19:00 WBC (4.4-10.8) 10^3/uL 15.50 H RBC (3.93-5.22) 10^6/uL 6.02 H Hgb (11.2-15.7) g/dL 14.5 Hct (36.0-46.0) % 47.9 H MCV (80-95) fL 80 MCH (27.0-33.0) pg 24.1 L MCHC (32.0-36.0) % 30.3 L RDW (11.7-14.6) % 17.8 H Plt Count (130-400) 10^3/uL 243 MPV (8.0-11.0) fL 11.2 H Immature Gran % % 0.7 Neutrophils % % 81.5 Lymphocytes % % 10.1 Monocytes % % 7.2 Eosinophils % % 0.0 Basophils % % 0.5 Nucleated RBC % (0.0-0.3) % 0.0 Absolute Neutrophils (1.2-6.7) 10^3/uL 12.63 H Absolute Lymphocytes (1.2-3.4) 10^3/uL 1.57 Absolute Monocytes (0.1-0.8) 10^3/uL 1.12 H Absolute Eosinophils (0.0-0.7) 10^3/uL 0.00 Absolute Basophils (0.0-0.2) 10^3/uL 0.08 PT (9.1-11.1) sec 11.0 INR (0.9-1.1) 1.1 VBG Lactate (0.6-1.4) mmol/L 1.0 Medical Decision Making Quality:SDOH Health Related Social Needs: No Data to Display Critical Care Time Critical Care Time Critical Care Time: Yes Total Critical Care Time: 60 Attestation: Upon my evaluation, this patient had a high probability of imminent or life-threatening deterioration due to diabetic ketoacidosis, elevated troponin, which required my direct attention, intervention, and personal management. I have personally provided 60 minutes of critical care time exclusive of time spent on separately billable procedures. Time includes review of laboratory data, radiology results, discussion with consultants, and monitoring for potential decompensation. Interventions were performed as documented above. Aspen Perry MD [facility] All Active Problems (Updated 06/14/24 @ 23:32 by Aspen Perry MD) Acute postoperative abdominal pain (Acute) Diabetic ketoacidosis (Acute) DKA (diabetic ketoacidosis) (Acute) Corneal abrasion (Acute) Obstructive sleep apnea of adult (Acute) [facility] 12/23/23 Muscle spasm of left lower extremity (Acute) Muscle spasm of back (Acute) Diabetic cataract of right eye (Acute) Ulcer of right foot limited to breakdown of skin (Acute 04/16/23) [facility] Ulcer of left foot, limited to breakdown of skin (Acute 04/16/23) [facility] Iron deficiency (Acute) 03/2023 iron studies indicating deficiency (NOT anemic) Migraine (Chronic) [facility] Chronic constipation (Chronic) [facility] Type 2 diabetes mellitus, with long-term current use of insulin (Chronic) With neuropathy & retinopathy (left, mild) Obesity (Chronic) Cirrhosis of liver (Chronic) [facility] Asthma (Chronic) Tobacco use disorder (Chronic) Started smoking age 9 Poorly controlled type 2 diabetes mellitus (Chronic 03/23/18) Polypharmacy (Chronic 12/14/15) Mild nonproliferative diabetic retinopathy associated with type 2 diabetes mellitus (Chronic 01/22/16) Mental health disorder (Chronic) Pt reports being diagnosed with bipolar disorder, disassociative disorder, anxiety, & multiple personality disorder Hypomagnesemia (Chronic 09/30/16) Hyperlipidemia (Chronic 09/30/16) 10-year ASCVD risk = unable to calculate due to not being age 40+ however dx T2DM, so Rx for statin 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 Jimenez [facility] 2023: [facility] Depressive disorder (Chronic 10/31/14) ADMISSION SUICIDAL THOUGHTS 06/13/14 OD ATTEMPTS IN PAST Chronic nausea (Chronic) EGD 04/16/16 Dr. 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 Ferrer Family History Mother , 46yo due to kidney & liver failure due to alcohol Substance use disorder Alcohol use disorder Father , 62yo from ALS Substance use disorder Alcohol use disorder ALS (amyotrophic lateral sclerosis) Grandmother Colon cancer Paternal Paternal Uncle Cardiac arrest Substance use disorder Alcohol and Pain Medication Abuse Social History Smoking/Tobacco Use Status: Current every day Tobacco Type: cigarettes Smoking packs per day: 1 Smoking cigarettes per day: 20.0 Tobacco: How many years used: 33 Quit status: considering quitting Smoking risk assessment performed?: Yes Alcohol Intake: never Drug use: Occasionally Substance use type: former substance user and marijuana Details: Pt. 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 Pets and animals: Yes (1 dog, 4 cats) Pets and animals: cat(s) and dog(s) Sexually active: Yes Do you think of yourself as: straight/heterosexual Current gender identity: female Other: 09/2022: pt reports she is engaged What is your relationship status?: How often do you talk on the phone with friends or family?: three or more times per week How often do you get together with friends or relatives?: once per week How often do you attend sikhism or pentecostalism services?: decline to answer Do you belong to any clubs or organized social groups?: no Panel score (0-1 are the most socially isolated patients): 2 What type of physical activity do you participate in: none Duration: decline to answer Frequency: decline to answer Seatbelt use: always Helmet use: No (No reason to wear one) 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
[2024-06-14 19:33] LABS: ALT 30 U/L (14-59); AST 31 U/L (15-37); Albumin 3.5 g/dL (3.4-5.0); Alkaline Phosphatase 161 U/L (46-116); Anion Gap 26.6 mmol/L (3-11); BUN 17 mg/dL (7-18); Bilirubin, Total 0.78 mg/dL (0.2-1.0); CO2 7.4 mmol/L (21.0-32.0); CREATININE 1.4 mg/dL (0.55-1.02); Calcium 9.8 mg/dL (8.5-10.1); Chloride 102 mmol/L (98-107); Estimated GFR 47.28 (mL/min/1.73m2); Glucose 233 mg/dL (74-106); Lipase 74 U/L (16-77); Magnesium 2.2 mg/dL (1.8-2.4); Potassium 3.7 mmol/L (3.5-5.1); Sodium 136 mmol/L (136-145); Total Protein 8.4 g/dL (6.4-8.2)
[2024-06-14 19:35] LABS: Troponin I 247 ng/L (<or=51)
--- NOTE | 2024-06-14 19:45 | DI.CT_ITS ---
Exam(s) CT ABDOMEN PELVIS W EXAM: CT ABDOMEN PELVIS W CLINICAL HISTORY: Post-op, AMS, abd pain, eval abscess TECHNIQUE: Imaging Protocol: Axial computed tomography images with coronal and sagittal reformatted images were created and reviewed. CONTRAST MATERIAL: Intravenous: Omnipaque 350 Contrast volume:100 mL Oral: No COMPARISON: CT CT ABDOMEN PELVIS W from 06/11/[address] ABDOMEN PELVIS WO from 05/24/[address] ABDOMEN PELVIS WO from 06/07/2024 US US ABDOMEN LIMITED from 06/11/2024 FINDINGS: ABDOMEN: Lung Bases: Normal where visualized. Liver: There again seen areas of decreased attenuation in the left lobe of the liver and the anterior aspect of the right lobe. The site are unchanged compared to the CT scan from 06/07/2024. They were not present on the CT examination from 05/24/2022. The liver otherwise enhances normally. Portal, Superior Mesenteric, and Splenic Veins: Unremarkable. Gallbladder and Biliary Tract: The patient is now status post cholecystectomy. No biliary ductal dil atation is seen. Pancreas: There is heterogeneous enhancement of the pancreas and mild stranding in the peripancreatic fat. There is a 2.4 cm fluid collection inferior to the head of the pancreas. (Series 9, image 33) . Spleen: Normal. Adrenals: No masses seen. Kidneys: Normal size, contour and axis. No radiodense stones or obstructive uropathy. No masses seen. Abdominal Aorta: Abdominal portion non-dilated. Atherosclerotic calcification is present. Bowel: No obstruction or bowel wall thickening. No evidence of appendicitis. Peritoneal Cavity: No ascites, collection or mesenteric inflammatory response. No free air. Lymph Nodes: Within normal limits. Bones: Within normal limits for the patient's age. Soft Tissues: There is mild infiltration of the subcutaneous tissues in the right upper quadrant cons istent with the patient's recent cholecystectomy. No evidence of a subcutaneous abscess. PELVIS: Bladder: Symmetric distention, no gross wall thickening. Reproductive Organs: Status post hysterectomy. Lymph Nodes: Within normal limits. Bones: Within normal limits for the patient's age. IMPRESSION: 1. Areas of decreased attenuation in the liver as described above likely reflecting fatty infiltratio n. This area is unchanged compared to the CT scan from 06/07/2024. 2. Interval cholecystectomy without biliary ductal dilatation. 3. Mild heterogeneous enhancement and infiltration around the pancreas which may reflect and mild acu te pancreatitis. There is a 2.4 cm fluid collection not present on the prior examination inferior to the head of the pancreas which may represent a small abscess. Unexpected findings RADIATION DOSE DELIVERED: 959.93mGy.cm Total DLP DATA REPOSITORY: All CT scans at this facility are submitted to the National Radiology Data Registry (NRDR) Dose Index Registry (DIR) with the [employer] ([employer]). RADIATION OPTIMIZATION: All CT scans at this facility use at least one of these dose optimization te chniques: automated exposure control; mA and/or kV adjustment per patient size (includes targeted exa ms where dose is matched to clinical indication); or iterative reconstruction.
--- NOTE | 2024-06-14 19:45 | DI.CT_ITS ---
Exam(s) CT HEAD WO EXAM: CT HEAD WO CLINICAL HISTORY: AMS after surgery, eval bleed. TECHNIQUE: Imaging Protocol: Axial computed tomography images with coronal and sagittal reformatted images were created and reviewed COMPARISON: CT HEAD WITHOUT CONTRAST from 07/20/[address] HEAD WO from 01/12/2024 FINDINGS: Ventricles and Extra axial spaces: Normal in size and morphology for the patient's age. Hemorrhage: No definite evidence of intracranial hemorrhage. There is a short thin linear area of hy perdensity seen in the right frontal lobe which may represent a vascular malformation. It is suggest ed on prior examinations and is similar. Hemorrhage is considered less likely. Cerebral parenchyma: Normal. Midline shift: None. Brainstem/Cerebellum: Normal. Calvarium: Normal. Visualized Paranasal sinuses/Mastoids: Clear. Soft Tissues: Unremarkable. IMPRESSION: 1. No acute intracranial process. 2. No definite evidence of intracranial hemorrhage. If symptoms persist, a repeat CT scan should be considered for further evaluation. MRI may be obtained for further evaluation. Unexpected findings RADIATION DOSE DELIVERED: 909mGy.cm Total DLP DATA REPOSITORY: All CT scans at this facility are submitted to the National Radiology Data Registry (NRDR) Dose Index Registry (DIR) with the [employer] ([employer]). RADIATION OPTIMIZATION: All CT scans at this facility use at least one of these dose optimization te chniques: automated exposure control; mA and/or kV adjustment per patient size (includes targeted exa ms where dose is matched to clinical indication); or iterative reconstruction.
[2024-06-14] MEDS: Aspirin 300 MG SUPP PR (20:18)
[2024-06-14] MEDS: PIPERACILLIN/TAZO 3.375 GM in Normal Saline 50 ML IVPB (20:19)
[2024-06-14] MEDS: Normal Saline Flush 10 ML SYR IVP (20:24)
--- NOTE | 2024-06-14 20:27 | DI.VRAD_ITS ---
PROCEDURE INFORMATION: Exam: CT Head Without Contrast Exam date and time: 06/14/2024 7:29 PM Age: 43 years old Clinical indication: Other: AMS after surgery, eval bleed TECHNIQUE: Imaging protocol: Computed tomography of the head without contrast. COMPARISON: CT HEAD WO 01/12/2024 11:00 PM FINDINGS: Brain: No intracranial hemorrhage. No cerebral edema. No large territory acute CVA. Cerebral ventricles: No ventriculomegaly. Paranasal sinuses: Paranasal sinuses are clear. Mastoid air cells: Mastoid air cells are clear. Bones: Unremarkable. No acute fracture. Soft tissues: Unremarkable. IMPRESSION: 1. Unremarkable noncontrast CT head. No acute change. 2. Stable exam since prior study 01/12/2024. Dictated and Authenticated by: Ector Mcelroy MD. Ordering:KIM Peres MD
--- NOTE | 2024-06-14 20:38 | DI.VRAD_ITS ---
PROCEDURE INFORMATION: Exam: CT Abdomen And Pelvis With Contrast Exam date and time: 06/14/2024 7:32 PM Age: 43 years old Clinical indication: Other: Post-op, AMS, abd pain, eval abscess; Prior surgery; Surgery date: Post-operative (0-2 days) TECHNIQUE: Imaging protocol: Computed tomography of the abdomen and pelvis with contrast. Contrast material: OMNIPAQUE 350; Contrast volume: 100 ml; Contrast route: INTRAVENOUS (IV); COMPARISON: CT ABDOMEN PELVIS WO 06/07/2024 10:43 PM FINDINGS: Liver: There is diffuse moderate fatty infiltration of the liver. There are areas in the anterior right hepatic lobe and left hepatic lobe which may represent atypical geographic fatty infiltration. Recommend clinical correlation. There is a previous ultrasound dated 06/11/2024. These regions appear hyperechoic by ultrasound suggesting geographic fat or atypical hemangioma formation Gallbladder and biliary ducts: Patient has had a previous cholecystectomy. There is no biliary dilatation. There are no ductal stones visible. Pancreas: Moderate pancreatic atrophy. Mild peripancreatic fatty stranding. Please correlate with pancreatic serology. cannot exclude a mild pancreatitis. No ductal dilatation. Spleen: The spleen is normal in size, contour and attenuation. Adrenal glands: The adrenal glands are normal in size and contour bilaterally. Kidneys and ureters: The kidneys bilaterally are unremarkable. Normal attenutation. No hydronephrosis. No calculi. Stomach and bowel: Gastric morphology is unremarkable. No edema. No gastric outlet obstruction. Small bowel loops are normal in course and caliber. There is no mucosal edema or bowel wall thickening. No obstructive features. The colon contains formed fecal material. There is no bowel wall thickening. No inflammatory features. No obstruction. Appendix: A non inflamed appendix is identified on series 9: Images 68 through 64. Intraperitoneal space: Unremarkable. No free air. No significant fluid collection. Vasculature: Unremarkable. No abdominal aortic aneurysm. Lymph nodes: Unremarkable. No enlarged lymph nodes. Urinary bladder: Urinary bladder is unremarkable in appearance. No wall thickening. No intravesicular calculi. No intravesicular gas. Reproductive: Previous hysterectomy. Bones/joints: No acute skeletal features. Degenerative lumbosacral spine findings. Soft tissues: Abdominal wall soft tissues are unremarkable. IMPRESSION: 1. Recent cholecystectomy without acute changes of biliary dilatation or gallbladder fossa pathology. No intra-abdominal free fluid. No evidence of abscess. 2. Fatty liver changes with areas of geographic decreased attenuation in the left hepatic lobe and anterior right hepatic lobe. Previous ultrasound 06/11/2024 without definable biliary dilatation. These regions appeared sonographically hyperechoic suggesting fat or possibly atypical hemangiomas. 3. Mild peripancreatic fatty stranding. cannot exclude mild acute pancreatitis. Please correlate clinically. Dictated and Authenticated by: Ector Mcelroy MD. Ordering:KIM Peres MD
--- NOTE | 2024-06-14 20:51 | DI.RAD_ITS ---
Exam(s) XR PORTABLE CHEST AP EXAM: XR PORTABLE CHEST AP CLINICAL HISTORY: AMS. TECHNIQUE: 2D digital imaging was performed. COMPARISON: CR,XR XR PORTABLE CHEST AP POST LINE from 06/12/[address] ABDOMEN PELVIS W from 06/14/2024 FINDINGS: Single AP portable view. The right jugular central line is been removed. Heart size unchanged. Mediastinum unchanged. Lungs are clear. No infiltrates nor obvious pleural effusions. No evidence of pulmonary edema. IMPRESSION: No acute pulmonary findings on this single AP portable view of the chest. DATA REPOSITORY: RADIATION DOSE DELIVERED:
[2024-06-14 21:01] LABS: Troponin I 275 ng/L (<or=51)
--- NOTE | 2024-06-14 21:01 | DI.VRAD_ITS ---
PROCEDURE INFORMATION: Exam: XR Chest Exam date and time: 06/14/2024 8:51 PM Age: 43 years old Clinical indication: Other: AMS TECHNIQUE: Imaging protocol: Radiologic exam of the chest. Views: 1 view. COMPARISON: CR XR PORTABLE CHEST AP POST LINE 06/12/2024 1:09 PM FINDINGS: Lungs: No acute lung infiltrates or airspace consolidation. Pleural spaces: No pleural effusion. Heart/Mediastinum: Moderate cardiac enlargement. No mediastinal widening. Bones/joints: Unremarkable. IMPRESSION: 1. No acute infiltrates or edema. 2. No acute pleural changes. 3. Moderate cardiac enlargement. 4. No significant interval change since 06/12/2024. A previous right IJ central line has been removed. Dictated and Authenticated by: Ector Mcelroy MD. Ordering:KIM Peres MD
[2024-06-14 21:10] LABS: Bilirubin Small (Negative); Blood Large (Negative); Clarity Clear (Clear); Glucose 500 mg/dL (Negative); Ketones >=160 mg/dL (Negative); Leukocyte Esterase Negative (Negative); Nitrite Negative (Negative); Urobilinogen 0.2 mg/dL (Up to 0.2); pH 5.5 (5-8)
[2024-06-14 21:24] LABS: Epithelial Cells Rare HPF (Negative); WBC Negative HPF (0-5)
[2024-06-14 21:25] LABS: Bacteria Negative HPF (Negative); C & S Indicated? No; Casts Negative LPF (Negative); Crystals Negative HPF (Negative); Mucus Negative (Negative)
[2024-06-14 22:03] LABS: BE (Venous) -25 mmol/L (-2-3); HCO3 (Venous) 5 mmol/L (23-28); O2 Sat (Venous) 84 %; TCO2 (Venous) 5 mmol/L (24-29); pO2 (Venous) 52 mmHg
[2024-06-14 22:04] LABS: pCO2 (Venous) 18 mmHg (41-51); pH (Venous) 7.09 (7.31-7.41)
[2024-06-14 22:30] LABS: Troponin I 201 ng/L (<or=51)
[2024-06-14] MEDS: Potassium Chloride 20 MEQ TABCR 40 MEQ PO (23:00)
--- NOTE | 2024-06-14 23:16 | HPE_ITS ---
Date of service: 06/14/24 Time of Service: 23:16 Assessment and Plan Assessment and plan (1) DKA (diabetic ketoacidosis): Start date: 06/14/24 Status: Acute Assessment and plan: This is a 43-year-old lady with recent presentation of gallstone pancreatitis now status post laparoscopic cholecystectomy having the trend of metabolic acidosis and decompensation. Her postoperative course now worsening and admitted for DKA. She is on DKA protocol and is medically stable responding slowly. Because of her elevated WBC and question of mild pancreatitis on CT imaging she was placed on IV antibiotics for possible postoperative infection though this appears less likely by CT imaging revealing no abscess and abdominal pain appear to be fairly mild and most likely normal recovery. Blood cultures were performed and patient was placed on cefepime. Surgical consultation will be sought to follow-up on recent hospitalization with mild CT imaging changes and elevated WBC. Patient is a full code. Qualifiers: Diabetes mellitus complication detail: without coma Diabetes mellitus type: type 2 Qualified Code(s): E11.10 - Type 2 diabetes mellitus with ketoacidosis without coma (2) Acute gallstone pancreatitis: Assessment and plan: This appears to be resolving clinically except for some mild abdominal discomfort complaints upon readmission. There are also mild CT imaging changes. Continue IV cefepime with surgical consultation. (3) Elevated troponin level not due myocardial infarction: Start date: 06/14/24 Status: Acute Assessment and plan: [facility] cardiology was consulted by the ED physician and this was thought to be demand troponin elevation without primary cardiac event. Will trend troponins and continue cardiac monitoring. No other interventions at this time. Patient's atorvastatin will be maximized with metoprolol to be added for blood pressure control. Baby aspirin will be initiated with loading dose given in the ED upon admission. (4) Type 2 diabetes mellitus, with long-term current use of insulin: Status: Chronic Assessment and plan: Poor control historically now in DKA. Adjust outpatient medical therapy at discharge. Qualifiers: Diabetes mellitus complication status: with hyperglycemia Qualified Code(s): E11.65 - Type 2 diabetes mellitus with hyperglycemia; Z79.4 - senior living (current) use of insulin (5) Cirrhosis of liver: Status: Chronic Assessment and plan: The history of obesity and chronic hep C as well as diabetes. This may be DRAKE. Follow-up as an outpatient with PCP. PT/INR are normal and liver functions are minimally elevated but will be trended. Qualifiers: Ascites presence: unspecified Hepatic cirrhosis type: unspecified hepatic cirrhosis Qualified Code(s): K74.60 - Unspecified cirrhosis of liver (6) Hepatitis C: Assessment and plan: This was documented as cleared in the recent past. Consider reevaluating for viral load liver functions remain elevated postoperatively. Qualifiers: Hepatic coma status: without hepatic coma Viral hepatitis chronicity: c hronic Qualified Code(s): B18.2 - Chronic viral hepatitis C History of Present Illness History of Present Illness Chief Complaint: Abdominal pain with altered mental status. Narrative: This is a 43-year-old female patient with recent hospitalization for acute gallstone pancreatitis status post laparoscopic cholecystectomy on 06/12/2024 and discharged the day prior to this presentation with increasing confusion at home and abdominal pain persisting. She was discharged in stable condition but was having some metabolic acidosis and abnormal lab postoperatively which was new from her baseline. Review of labs did reveal metabolic acidosis clear before discharge and worsening with a T CO2 16.1 on the day of surgery and 12.0 at discharge now 7.4. VBG was performed in the ED and did reveal a pH of 7.09 and a pCO2 of 80 with patient tachypneic hyperventilating to compensate for respiratory or metabolic acidosis with adequate oxygenation and a bicarb of 5. She does have diabetes and is in DKA. She also had an elevated troponin which appear to be flat with follow-up and [facility] cardiology thought this was secondary that advising medical management and follow-up with heparinization will treat the primary problem. With her continued abdominal pain and elevated WBC in the ED, she had blood cultures performed and was initiated on Zosyn with the switch to cefepime because of her penicillin allergies. Surgery was consulted by the ED physician and was not concerned about her presentation surgically will be reconsulted to evaluate with the hospitalist service as we treat her DKA. Patient is a minimalist with conversation and offers no new complaints upon admission. She is a full code. Review of Systems Narrative: 13 point review of systems otherwise unrevealing or unobtainable with patient having minimal conversation and tachypneic at bedside in moderate distress. PFSH All Active Problems (Updated 06/14/24 @ 23:55 by Stephan Finn) Elevated troponin level not due myocardial infarction (Acute) Acute postoperative abdominal pain (Acute) Diabetic ketoacidosis (Acute) DKA (diabetic ketoacidosis) (Acute) Corneal abrasion (Acute) Obstructive sleep apnea of adult (Acute) [facility] 12/23/23 Muscle spasm of left lower extremity (Acute) Muscle spasm of back (Acute) Diabetic cataract of right eye (Acute) Ulcer of right foot limited to breakdown of skin (Acute 04/16/23) [facility] Podiatry Ulcer of left foot, limited to breakdown of skin (Acute 04/16/23) [facility] Podiatry Iron deficiency (Acute) 03/2023 iron studies indicating deficiency (NOT anemic) Migraine (Chronic) [facility] Neuro Chronic constipation (Chronic) [facility] GI Type 2 diabetes mellitus, with long-term current use of insulin (Chronic) With neuropathy & retinopathy (left, mild) Obesity (Chronic) Cirrhosis of liver (Chronic) [facility] GI Asthma (Chronic) Tobacco use disorder (Chronic) Started smoking age 9 Poorly controlled type 2 diabetes mellitus (Chronic 03/23/18) Polypharmacy (Chronic 12/14/15) Mild nonproliferative diabetic retinopathy associated with type 2 diabetes mellitus (Chronic 01/22/16) Mental health disorder (Chronic) Pt reports being diagnosed with bipolar disorder, disassociative disorder, anxiety, & multiple personality disorder Hypomagnesemia (Chronic 09/30/16) Hyperlipidemia (Chronic 09/30/16) 10-year ASCVD risk = unable to calculate due to not being age 40+ however dx T2DM, so Rx for statin 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 Jimenez [facility] 2023: [facility] GI Depressive disorder (Chronic 10/31/14) ADMISSION SUICIDAL THOUGHTS 06/13/14 OD ATTEMPTS IN PAST Chronic nausea (Chronic) EGD 04/16/16 Dr. 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 Ferrer Family History Mother , 46yo due to kidney & liver failure due to alcohol Substance use disorder Alcohol use disorder Father , 62yo from ALS Substance use disorder Alcohol use disorder ALS (amyotrophic lateral sclerosis) Grandmother Colon cancer Paternal Paternal Uncle Cardiac arrest Substance use disorder Alcohol and Pain Medication Abuse Social History Smoking/Tobacco Use Status: Current every day Tobacco Type: cigarettes Smoking packs per day: 1 Smoking cigarettes per day: 20.0 Tobacco: How many years used: 33 Quit status: considering quitting Smoking risk assessment performed?: Yes Alcohol Intake: never Drug use: Occasionally Substance use type: former substance user and marijuana Details: Pt. 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 Pets and animals: Yes (1 dog, 4 cats) Pets and animals: cat(s) and dog(s) Sexually active: Yes Do you think of yourself as: straight/heterosexual Current gender identity: female Other: 09/2022: pt reports she is engaged What is your relationship status?: How often do you talk on the phone with friends or family?: three or more times per week How often do you get together with friends or relatives?: once per week How often do you attend denominational or denominational services?: decline to answer Do you belong to any clubs or organized social groups?: no Panel score (0-1 are the most socially isolated patients): 2 What type of physical activity do you participate in: none Duration: decline to answer Frequency: decline to answer Seatbelt use: always Helmet use: No (No reason to wear one) 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 Meds Allergies and Home Medications Allergies Allergy/AdvReac Type Severity Reaction Status Date / Time Penicillins Allergy Severe lip and Verified 06/08/24 11:53 facial swelling lamotrigine (From Lamictal) Allergy Unknown Skin Rash Verified 06/08/24 11:53 clindamycin AdvReac Severe Nausea & Verified 06/08/24 11:53 vomiting aspirin AdvReac Intermediate nausea/pain Verified 06/08/24 11:53 Home Medications ?Medication ?Instructions ?Recorded ?Confirmed ?Type methadone 10 mg/mL oral concentrate 77 mg PO DAILY 02/12/19 06/14/24 History atorvastatin 10 mg tablet 10 mg PO QHS #90 tabs 09/03/19 06/14/24 Rx acetaminophen 500 mg tablet 500 - 1,000 mg (1 - 2 x 500 mg) PO 09/24/19 06/14/24 Rx Q8H PRN fever or pain #180 tab-caps alcohol swabs (Alcohol Pads) 1 pad topical QID #400 ea 10/25/22 06/14/24 Rx lorazepam 0.5 mg tablet 0.5 mg PO DAILY PRN 03/13/23 06/14/24 History pen needle, diabetic 32 gauge x #100 ea 06/30/23 06/14/24 Rx /32 (BD Ultra-Fine Yamini Pen Needle) blood-glucose meter #1 ea 08/28/23 06/14/24 Rx lancets #400 ea 08/28/23 06/14/24 Rx blood-glucose transmitter (Dexcom #3 ea 09/25/23 06/14/24 Rx G6 Transmitter device) clonidine HCl 0.2 mg tablet 0.2 mg PO HS 11/21/23 06/14/24 History insulin aspart U-100 100 unit/mL 15 unit (0.15 mL) subcut AC #15 mL 01/05/24 06/14/24 Rx (3 mL) subcutaneous pen (Novolog FlexPen U-100 Insulin aspart) naloxone 4 mg/actuation nasal 4 mg intranasal Q2M PRN opioid 02/13/24 06/14/24 Rx spray (Narcan) overdose #2 ea insulin degludec 100 unit/mL (3 140 unit subcut DAILY 03/05/24 06/14/24 History mL) subcutaneous pen (Tresiba FlexTouch U-100 insulin) empagliflozin 25 mg tablet 25 mg PO DAILY AM #90 tab-caps 04/05/24 06/14/24 Rx (Jardiance) 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 04/12/24 06/14/24 Rx #90 tab-caps blood sugar diagnostic (Blood #400 ea 04/26/24 06/14/24 Rx Glucose Test strips) blood-glucose sensor ([employer] G6 #3 ea 04/26/24 06/14/24 Rx Sensor device) magnesium oxide 400 mg (241.3 mg 400 mg PO BID #180 tabs 04/26/24 06/14/24 Rx magnesium) tablet mirtazapine 15 mg tablet 15 mg PO HS 05/03/24 06/14/24 History omeprazole 40 mg capsule,delayed 40 mg PO DAILY #90 caps 05/20/24 06/14/24 Rx release nystatin 100,000 unit/gram topical 1 applic topical BID PRN fungal 05/25/24 06/14/24 Rx powder skin infection #30 grams sumatriptan succinate 100 mg tablet 100 mg PO ONCE PRN migraine 05/25/24 06/14/24 Rx headache #30 tab-caps albuterol sulfate 90 mcg/actuation 1 - 2 puff inhalation Q4-6H PRN ##1 05/31/24 06/14/24 Rx aerosol inhaler celecoxib 200 mg capsule See Rx Instructions .Route 05/31/24 06/14/24 Rx .COMPLEX #60 caps fluticasone 250 mcg-salmeterol 50 1 inh inhalation BID #60 ea 05/31/24 06/14/24 Rx mcg/dose blistr powdr for inhalation (Advair Diskus) gabapentin 300 mg capsule 300 mg PO HS PRN back pain #60 caps 05/31/24 06/14/24 Rx glucagon 1 mg/0.2 mL subcutaneous 1 mg (0.2 mL) subcut ONCE #0.4 mL 05/31/24 06/14/24 Rx auto-injector (Gvoke HypoPen 2-Pack) ipratropium 0.5 mg-albuterol 3 mg 3 ml inhalation QID PRN wheezing 05/31/24 06/14/24 Rx (2.5 mg base)/3 mL nebulization #180 mL soln methocarbamol 500 mg tablet 1,000 mg (2 x 500 mg) PO HS PRN 05/31/24 06/14/24 Rx muscle spasm #90 tabs metoclopramide HCl 10 mg tablet 10 mg PO TID PRN 05/31/24 06/14/24 History ondansetron 8 mg disintegrating 8 mg PO BID PRN nausea and 05/31/24 06/14/24 Rx tablet vomiting #60 tabs pregabalin 200 mg capsule 200 mg PO TID #270 tab-caps 05/31/24 06/14/24 Rx fremanezumab-vfrm 225 mg/1.5 mL 225 mg subcut QMONTH 06/07/24 06/14/24 History subcutaneous auto-injector (Ajovy) onabotulinumtoxinA 100 unit 300 unit IM ONCE 06/07/24 06/14/24 History solution for injection (Botox) dextroamphetamine-amphetamine 20 20 mg PO TID PRN 06/08/24 06/14/24 History mg tablet hydroxyzine pamoate 50 mg capsule 50 mg PO BID PRN 06/08/24 06/14/24 History lurasidone 80 mg tablet 80 mg PO DAILY 06/08/24 06/14/24 History Exam Narrative Exam Narrative: General: Patient appears acutely ill with some moderate distress and tachypnea did have been bed with minimal conversation but able to speak. She is staring straight ahead without eye contact. She is alert and oriented at least to person and place. When prompted she does have more normal conversation with only uses 1 or 2 words. She appeared depressed. HEENT: Normocephalic, course and facial features, eyes with pupils equal and reactive to light symmetrically, extraocular move intact and sclera anicteric. Poor dentition with moist oral mucosa. Neck: Supple without JVD. Back: Stooped posture without CVA tenderness. Lungs: Fair aeration without localized rales or rhonchi. No expiratory wheeze. Bronchovesicular breath sounds diffusely. Breast: Exam deferred. Heart: Regular rate and rhythm with no murmurs gallops appreciated. Abdomen: Obese contour and slightly tender to palpation but not focalizing the patient examined sitting left discomfort lying in bed. No rebound. Bowel sounds positive all quadrants. Fresh status post laparoscopic scars. No tympany to percussion. Genitalia/rectal: Exam deferred. Extremities: Without clubbing, cyanosis or grossly pitting edema with nonpitting edema both lower extremities. Chronic skin changes lower extremities. No ulcerations noted. Good cap refill. Skin: Normal color, warm and dry. Neuro: Cranial 2 through 12 intact, no focal motor deficits. No tremor. Psych: Flattened affect with depressed mood. No abnormal thought processes. Patient has minimal conversation but this appears to be purposeful with her avoidance of eye contact and tachypneic with her acute process. Remote and recent memory difficult to test with patient not conversing. Results Imaging Imaging Studies: Exam: XR Chest Exam date and time: 06/14/2024 8:51 PM Age: 43 years old Clinical indication: Other: AMS TECHNIQUE: Imaging protocol: Radiologic exam of the chest. Views: 1 view. COMPARISON: CR XR PORTABLE CHEST AP POST LINE 06/12/2024 1:09 PM FINDINGS: Lungs: No acute lung infiltrates or airspace consolidation. Pleural spaces: No pleural effusion. Heart/Mediastinum: Moderate cardiac enlargement. No mediastinal widening. Bones/joints: Unremarkable. IMPRESSION: 1. No acute infiltrates or edema. 2. No acute pleural changes. 3. Moderate cardiac enlargement. 4. No significant interval change since 06/12/2024. A previous right IJ central line has been removed. Exam: CT Abdomen And Pelvis With Contrast Exam date and time: 06/14/2024 7:32 PM Age: 43 years old Clinical indication: Other: Post-op, AMS, abd pain, eval abscess; Prior surgery; Surgery date: Post-operative (0-2 days) TECHNIQUE: Imaging protocol: Computed tomography of the abdomen and pelvis with contrast. Contrast material: OMNIPAQUE 350; Contrast volume: 100 ml; Contrast route: INTRAVENOUS (IV); COMPARISON: CT ABDOMEN PELVIS WO 06/07/2024 10:43 PM FINDINGS: Liver: There is diffuse moderate fatty infiltration of the liver. There are areas in the anterior right hepatic lobe and left hepatic lobe which may represent atypical geographic fatty infiltration. Recommend clinical correlation. There is a previous ultrasound dated 06/11/2024. These regions appear hyperechoic by ultrasound suggesting geographic fat or atypical hemangioma formation Gallbladder and biliary ducts: Patient has had a previous cholecystectomy. There is no biliary dilatation. There are no ductal stones visible. Pancreas: Moderate pancreatic atrophy. Mild peripancreatic fatty stranding. Please correlate with pancreatic serology. cannot exclude a mild pancreatitis. No ductal dilatation. Spleen: The spleen is normal in size, contour and attenuation. Adrenal glands: The adrenal glands are normal in size and contour bilaterally. Kidneys and ureters: The kidneys bilaterally are unremarkable. Normal attenutation. No hydronephrosis. No calculi. Stomach and bowel: Gastric morphology is unremarkable. No edema. No gastric outlet obstruction. Small bowel loops are normal in course and caliber. There is no mucosal edema or bowel wall thickening. No obstructive features. The colon contains formed fecal material. There is no bowel wall thickening. No inflammatory features. No obstruction. Appendix: A non inflamed appendix is identified on series 9: Images 68 through 64. Intraperitoneal space: Unremarkable. No free air. No significant fluid collection. Vasculature: Unremarkable. No abdominal aortic aneurysm. Lymph nodes: Unremarkable. No enlarged lymph nodes. Urinary bladder: Urinary bladder is unremarkable in appearance. No wall thickening. No intravesicular calculi. No intravesicular gas. Reproductive: Previous hysterectomy. Bones/joints: No acute skeletal features. Degenerative lumbosacral spine findings. Soft tissues: Abdominal wall soft tissues are unremarkable. IMPRESSION: 1. Recent cholecystectomy without acute changes of biliary dilatation or gallbladder fossa pathology. No intra-abdominal free fluid. No evidence of abscess. 2. Fatty liver changes with areas of geographic decreased attenuation in the left hepatic lobe and anterior right hepatic lobe. Previous ultrasound 06/11/2024 without definable biliary dilatation. These regions appeared sonographically hyperechoic suggesting fat or possibly atypical hemangiomas. 3. Mild peripancreatic fatty stranding. cannot exclude mild acute pancreatitis. Please correlate clinically. Exam: CT Head Without Contrast Exam date and time: 06/14/2024 7:29 PM Age: 43 years old Clinical indication: Other: AMS after surgery, eval bleed TECHNIQUE: Imaging protocol: Computed tomography of the head without contrast. COMPARISON: CT HEAD WO 01/12/2024 11:00 PM FINDINGS: Brain: No intracranial hemorrhage. No cerebral edema. No large territory acute CVA. Cerebral ventricles: No ventriculomegaly. Paranasal sinuses: Paranasal sinuses are clear. Mastoid air cells: Mastoid air cells are clear. Bones: Unremarkable. No acute fracture. Soft tissues: Unremarkable. IMPRESSION: 1. Unremarkable noncontrast CT head. No acute change. 2. Stable exam since prior study 01/12/2024. Labs 06/14/24 19:00 06/15/24 04:10 Labs: Laboratory Results - last 24 hr 06/14/24 06/14/24 06/14/24 19:00 20:38 20:53 WBC 15.50 H RBC 6.02 H Hgb 14.5 Hct 47.9 H MCV 80 MCH 24.1 L MCHC 30.3 L RDW 17.8 H Plt Count 243 MPV 11.2 H Immature Gran % 0.7 Neutrophils % 81.5 Lymphocytes % 10.1 Monocytes % 7.2 Eosinophils % 0.0 Basophils % 0.5 Nucleated RBC % 0.0 Absolute Neutrophils 12.63 H Absolute Lymphocytes 1.57 Absolute Monocytes 1.12 H Absolute Eosinophils 0.00 Absolute Basophils 0.08 PT 11.0 INR 1.1 VBG pH VBG pCO2 VBG pO2 VBG HCO3 VBG Total CO2 VBG O2 Saturation VBG Base Excess VBG Lactate 1.0 Sodium 136 Potassium 3.7 Chloride 102 Carbon Dioxide 7.4 L Anion Gap 26.6 H BUN 17 Creatinine 1.4 H Est GFR (CKD-EPI 2020) 47.28 Glucose 233 H Calcium 9.8 Magnesium 2.2 Total Bilirubin 0.78 AST 31 ALT 30 Alkaline Phosphatase 161 H Troponin I 247 H* 275 H* Total Protein 8.4 H Albumin 3.5 Lipase 74 Urine Color Yellow Urine Clarity Clear Urine pH 5.5 Ur Specific [place] 1.020 Urine Protein 100 H Urine Ketones >=160 H Urine Blood Large H Urine Nitrite Negative Urine Bilirubin Small H Urine Urobilinogen 0.2 Ur Leukocyte Esterase Negative Urine RBC 5-10 H Urine WBC Negative Ur Epithelial Cells Rare Urine Crystals Negative Urine Bacteria Negative Urine Casts Negative Urine Mucus Negative Ur Culture Indicated? No Urine Glucose 500 H 06/14/24 22:00 WBC RBC Hgb Hct MCV MCH MCHC RDW Plt Count MPV Immature Gran % Neutrophils % Lymphocytes % Monocytes % Eosinophils % Basophils % Nucleated RBC % Absolute Neutrophils Absolute Lymphocytes Absolute Monocytes Absolute Eosinophils Absolute Basophils PT INR VBG pH 7.09 L* VBG pCO2 18 L* VBG pO2 52 VBG HCO3 5 L VBG Total CO2 5 L VBG O2 Saturation 84 VBG Base Excess -25 L VBG Lactate Sodium Potassium Chloride Carbon Dioxide Anion Gap BUN Creatinine Est GFR (CKD-EPI 2020) Glucose Calcium Magnesium Total Bilirubin AST ALT Alkaline Phosphatase Troponin I 201 H* Total Protein Albumin Lipase Urine Color Urine Clarity Urine pH Ur Specific [place] Urine Protein Urine Ketones Urine Blood Urine Nitrite Urine Bilirubin Urine Urobilinogen Ur Leukocyte Esterase Urine RBC Urine WBC Ur Epithelial Cells Urine Crystals Urine Bacteria Urine Casts Urine Mucus Ur Culture Indicated? Urine Glucose Last Vital Signs Temp 35.9 C L 06/14/24 18:53 Pulse 110 H 06/14/24 21:30 Resp 22 06/14/24 22:00 BP 160/79 H 06/14/24 21:30 Pulse Ox 100 06/14/24 21:50 Time Spent Time spent with Patient: >75 minutes Time was spent: preparing to see the patient(eg.review tests), obtaining and/or reviewing separately otained hiistory, ordering medications,tests, procedures, referring, communicating with other health youth career specialist, indepentently interpreting results and care coordination
[2024-06-14] MEDS: POTASSIUM CHLORIDE 20 MEQ/100 ML BAG 50 MEQ IVINF (23:45)
[2024-06-14] MEDS: DEXTROSE 5%-0.45% SALINE 1,000 ML 200 ML IV (23:45)
[2024-06-14] MEDS: INSULIN REGULAR IN 0.9 % NACL 100 UNIT/100 ML BAG IV (23:45)
[2024-06-15] VITALS (56 sets, daily range): BP systolic 100–174; BP diastolic 57–119; PULSE 71–124; RESP 10–38; TEMP 37.2; O2SAT 94–100
[2024-06-15 00:54] LABS: *AMPHETAMINES SCREEN URINE Negative (Negative); *BARBITURATES SCREEN URINE Negative (Negative); *BENZODIAZEPINES SCREEN URINE Negative (Negative); Cannabinoids THC Negative (Negative); Cocaine Screen,Urine Negative (Negative); METHADONE URINE SCREEN Positive (Negative); OPIATES URINE SCREEN Negative (Negative); Tricyclic Antidepressants Negative (Negative)
[2024-06-15] MEDS: cloNIDine 0.1 MG TAB 0.2 MG PO ×2 (02:13→21:17)
[2024-06-15] MEDS: Atorvastatin 10 MG TAB PO (02:13)
[2024-06-15] MEDS: Pregabalin 100 MG CAP 200 MG PO ×3 (02:13→21:17)
[2024-06-15] MEDS: Mirtazapine 15 MG TAB PO ×2 (02:13→21:18)
[2024-06-15] MEDS: POTASSIUM CHLORIDE/D5-0.9%NACL 1,000 ML 200 MEQ IV ×3 (02:50→13:36)
[2024-06-15] MEDS: CEFEPIME 2 GM in Normal Saline 100 ML IVPB ×3 (02:50→17:15)
[2024-06-15 02:51] LABS: Anion Gap 28.3 mmol/L (3-11); BUN 18 mg/dL (7-18); CO2 6.7 mmol/L (21.0-32.0); CREATININE 1.3 mg/dL (0.55-1.02); Calcium 9.8 mg/dL (8.5-10.1); Chloride 103 mmol/L (98-107); Estimated GFR 51.68 (mL/min/1.73m2); Glucose 292 mg/dL (74-106); Potassium 3.5 mmol/L (3.5-5.1); Sodium 138 mmol/L (136-145)
[2024-06-15 02:56] LABS: TSH 0.09 uIU/Ml (0.36-3.74)
[2024-06-15 02:58] LABS: Troponin I 161 ng/L (<or=51)
[2024-06-15 04:37] LABS: Anion Gap 25.8 mmol/L (3-11); BUN 18 mg/dL (7-18); CO2 7.2 mmol/L (21.0-32.0); CREATININE 1.2 mg/dL (0.55-1.02); Calcium 9.7 mg/dL (8.5-10.1); Chloride 105 mmol/L (98-107); Estimated GFR 56.89 (mL/min/1.73m2); Glucose 266 mg/dL (74-106); Potassium 3.5 mmol/L (3.5-5.1); Sodium 138 mmol/L (136-145)
[2024-06-15 06:10] LABS: HGB 14.6 g/dL (11.2-15.7); MCH 24.7 pg (27.0-33.0); MCHC 31.7 % (32.0-36.0); MCV 78 fL (80-95); MPV 11.1 fL (8.0-11.0); Platelet Count 226 10^3/uL (130-400); RBC 5.92 10^6/uL (3.93-5.22); RDW-SD 47.1 fL; WBC 15.37 10^3/uL (4.4-10.8)
[2024-06-15 06:20] LABS: INR 1.1 (0.9-1.1); Prothrombin Time 10.6 sec (9.1-11.1)
[2024-06-15 06:24] LABS: Anion Gap 23.5 mmol/L (3-11); BUN 18 mg/dL (7-18); CO2 8.5 mmol/L (21.0-32.0); CREATININE 1.2 mg/dL (0.55-1.02); Calcium 9.7 mg/dL (8.5-10.1); Chloride 107 mmol/L (98-107); Estimated GFR 56.89 (mL/min/1.73m2); Glucose 201 mg/dL (74-106); Potassium 3.4 mmol/L (3.5-5.1); Sodium 139 mmol/L (136-145)
[2024-06-15 06:27] LABS: ALT 27 U/L (14-59); AST 21 U/L (15-37); Albumin 3.3 g/dL (3.4-5.0); Alkaline Phosphatase 157 U/L (46-116); Bilirubin, Direct 0.2 mg/dL (0.0-0.2); Total Protein 8.3 g/dL (6.4-8.2)
[2024-06-15 06:29] LABS: PHOSPHORUS < 2.0 mg/dL (2.6-4.7)
[2024-06-15 06:36] LABS: Troponin I 157 ng/L (<or=51)
[2024-06-15] MEDS: Metoprolol 25 MG TAB PO ×3 (07:02→17:16)
[2024-06-15] MEDS: Atorvastatin 40 MG TAB 80 MG PO ×2 (07:03→21:17)
[2024-06-15 07:04] LABS: Ammonia < 10 umol/L (11-32)
[2024-06-15] MEDS: Lurasidone 40 MG TAB 80 MG PO (07:39)
[2024-06-15] MEDS: Magnesium Oxide 400 MG TAB PO ×2 (07:40→21:18)
[2024-06-15] MEDS: Omeprazole 20 MG CAPCR 40 MG PO (07:40)
[2024-06-15] MEDS: Aspirin 81 MG CHEW PO (07:40)
[2024-06-15] MEDS: Celecoxib 200 MG CAP PO (07:40)
[2024-06-15] MEDS: Normal Saline Flush 10 ML SYR IVP ×2 (07:41→21:18)
--- NOTE | 2024-06-15 07:52 | SCONE_ITS ---
Date of service: 06/15/24 Time of Service: 07:52 Assessment and Plan Assessment and plan (1) Metabolic acidosis: Status: Acute Assessment and plan: 43-year-old woman with metabolic acidosis of unclear etiology that may be related to diabetic ketoacidosis but probably more likely related to acute pancreatitis. Metabolic acidosis is relatively common in the setting of acute pancreatitis and speaks to its severity. In this patient's case, this is a case of recurrent pancreatitis and though it was/is resolving, it is a very morbid condition at baseline. Her chronic, significant comorbidities make her susceptible. She is hemodynamically stable. There is no evidence of end?organ failure. It is unclear how any of this is related to her lethargy since that has been ongoing for over a week now. While this may be diabetic ketoacidosis, her blood sugars are really never impressively high. I'm not sure that is 100% of the picture. Unclear etiology of her white count but it was present a week ago and is grossly unchanged(she was on fluroquinolone for a number of days including post-op). I have no concerns about surgical issues or post-surgical infection. The CT scan essentially ruled out the possibility of pancreatic necrosis/abscess. The CT scan still shows some inflammation in the pancreas even though her lipase is normal. This may be a case of ongoing pancreas infection. There is no role for surgical management or intervention in this case. I'm not sure if there is anything more, in particular, to look for in regards to the ongoing leukocytosis. Her gallbladder was not infected and her pancreas does not look necrotic on CT. All of that being said, leukocytosis, elevated CRP and elevated ESR are all associated with more severe pancreatitis and ongoing pancreas infection. Radiologic evidence suggests pancreas is still inflamed even though Lipase is normal. Her severe diabetes that is uncontrolled makes her immunocompromised(along with her liver disease) and I wonder if that's really what is going on. At this point, even though alternative explanations for the leukocytosis should be considered, I would empirically treat the pancreas as infected and start broad?spectrum Imipenem or Meropenem therapy(Good pancreas penetration). I think this is the likely explanation for the white count and the ongoing metabolic acidosis. Or, it is a combination of both DKA and this. Surgery signing off. Recommend low-threshold to transfer patient if she worsens considering her comorbid conditions which are quite severe. She may become very sick, and quickly decompensate. History of Present Illness Narrative: Patient had lap giovanni for gallstone pancreatitis 3 days ago. Procedure was uneventful and she did well. She was hospitalized for about a week leading up to that procedure. Her pancreatitis was resolving but her bicarbonate was slowly down?trending. That metabolic acidosis had been attributed to the ongoing pancreatitis which is a relatively common occurence. During her hospital stay her blood sugar had been mostly, reasonably controlled in the 200 range. During the entirety of her stay and many days leading up to her operation, she had been notably quite lethargic and this was all attributed to narcotic administration because she was having a lot of pain. Family agrees her lethargy had been throughout the hospitalization. No narcotics were given the day before or after her surgery. She had a low-grade leukocytosis during the duration of her stay including the day she presented which was 14.34 on admission on 06/07. She was on a fluoroquinolone for a week, but the white count never went away. Pancreatitis resolved clinically and on lab-work. A non-infected gallbladder was removed. She was discharged home. Her diabetes is severely uncontrolled at baseline. She has severe liver disease at baseline. She has heart disease at baseline. Since being admitted last night, her lab work has been improving, but she remains lethargic and difficult to arouse. When she is aroused/awake, she is able to converse and communicate. PFSH All Active Problems (Updated 06/15/24 @ 21:03 by Rubio Reyes MD) Metabolic acidosis (Acute) Elevated troponin level not due myocardial infarction (Acute) Acute postoperative abdominal pain (Acute) Diabetic ketoacidosis (Acute) DKA (diabetic ketoacidosis) (Acute) Corneal abrasion (Acute) Obstructive sleep apnea of adult (Acute) [facility] 12/23/23 Muscle spasm of left lower extremity (Acute) Muscle spasm of back (Acute) Diabetic cataract of right eye (Acute) Ulcer of right foot limited to breakdown of skin (Acute 04/16/23) [facility] Ulcer of left foot, limited to breakdown of skin (Acute 04/16/23) [facility] Iron deficiency (Acute) 03/2023 iron studies indicating deficiency (NOT anemic) Migraine (Chronic) [facility] Chronic constipation (Chronic) [facility] Type 2 diabetes mellitus, with long-term current use of insulin (Chronic) With neuropathy & retinopathy (left, mild) Obesity (Chronic) Cirrhosis of liver (Chronic) [facility] Asthma (Chronic) Tobacco use disorder (Chronic) Started smoking age 9 Poorly controlled type 2 diabetes mellitus (Chronic 03/23/18) Polypharmacy (Chronic 12/14/15) Mild nonproliferative diabetic retinopathy associated with type 2 diabetes mellitus (Chronic 01/22/16) Mental health disorder (Chronic) Pt reports being diagnosed with bipolar disorder, disassociative disorder, anxiety, & multiple personality disorder Hypomagnesemia (Chronic 09/30/16) Hyperlipidemia (Chronic 09/30/16) 10-year ASCVD risk = unable to calculate due to not being age 40+ however dx T2DM, so Rx for statin 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 [facility] 2023: [facility] Depressive disorder (Chronic 10/31/14) ADMISSION SUICIDAL THOUGHTS 06/13/14 OD ATTEMPTS IN PAST Chronic nausea (Chronic) EGD 04/16/16 Dr. 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 Premature surgical menopause JAD/BSO in late 20s, no HRT Hepatitis C 02/14/2016 labwork: undetectable RNA level Surgical History Status post total hysterectomy and bilateral salpingo-oophorectomy (~2006) noncancerous reasons Status post left foot surgery (10/2022) Left fourth metatarsal head excision for chronic ulcer, osteomyelitis ([facility]/Tamia Vidales DPM) Status post section (~2003) EGD (04/16/16) Dr. Ferrer Family History Mother , 46yo due to kidney & liver failure due to alcohol Substance use disorder Alcohol use disorder Father , 62yo from ALS Substance use disorder Alcohol use disorder ALS (amyotrophic lateral sclerosis) Grandmother Colon cancer Paternal Paternal Uncle Cardiac arrest Substance use disorder Alcohol and Pain Medication Abuse Social History Smoking/Tobacco Use Status: Current every day Tobacco Type: cigarettes Smoking packs per day: 1 Smoking cigarettes per day: 20.0 Tobacco: How many years used: 33 Quit status: considering quitting Smoking risk assessment performed?: Yes Alcohol Intake: never Drug use: Occasionally Substance use type: former substance user and marijuana Details: Pt. 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 Pets and animals: Yes (1 dog, 4 cats) Pets and animals: cat(s) and dog(s) Sexually active: Yes Do you think of yourself as: straight/heterosexual Current gender identity: female Other: 09/2022: pt reports she is engaged What is your relationship status?: How often do you talk on the phone with friends or family?: three or more times per week How often do you get together with friends or relatives?: once per week How often do you attend alevism or islam services?: decline to answer Do you belong to any clubs or organized social groups?: no Panel score (0-1 are the most socially isolated patients): 2 What type of physical activity do you participate in: none Duration: decline to answer Frequency: decline to answer Seatbelt use: always Helmet use: No (No reason to wear one) Drive intox or ride w/intox flag car 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 Exam Narrative Exam Narrative: Gen: Non-toxic, comfortable and but lethargic Neuro: Alert and oriented x3 Psych: Reasonable mood and affect. Unclear insight and understanding into her conditions. Chest: Non-labored breathing, no wheezing, no visible shortness of breath. Heart: Regular Abdomen: Soft, nondistended and nontender. Her incisions look perfect. No erythema. No evidence of infection. Intact. Results Last Vital Signs Temp 99.0 F 06/15/24 01:00 Pulse 100 H 06/15/24 05:01 Resp 38 H 06/15/24 06:00 BP 122/77 06/15/24 05:01 Pulse Ox 99 06/15/24 06:00 Labs 06/15/24 05:40 06/15/24 19:45 Labs: Laboratory Results - last 24 hr 06/14/24 06/14/24 06/14/24 19:00 20:38 20:53 WBC 15.50 H RBC 6.02 H Hgb 14.5 Hct 47.9 H MCV 80 MCH 24.1 L MCHC 30.3 L RDW 17.8 H Plt Count 243 MPV 11.2 H Immature Gran % 0.7 Neutrophils % 81.5 Lymphocytes % 10.1 Monocytes % 7.2 Eosinophils % 0.0 Basophils % 0.5 Nucleated RBC % 0.0 Absolute Neutrophils 12.63 H Absolute Lymphocytes 1.57 Absolute Monocytes 1.12 H Absolute Eosinophils 0.00 Absolute Basophils 0.08 PT 11.0 INR 1.1 VBG pH VBG pCO2 VBG pO2 VBG HCO3 VBG Total CO2 VBG O2 Saturation VBG Base Excess VBG Lactate 1.0 Sodium 136 Potassium 3.7 Chloride 102 Carbon Dioxide 7.4 L Anion Gap 26.6 H BUN 17 Creatinine 1.4 H Est GFR (CKD-EPI 2020) 47.28 Glucose 233 H Calcium 9.8 Phosphorus Magnesium 2.2 Total Bilirubin 0.78 Conjugated Bilirubin AST 31 ALT 30 Alkaline Phosphatase 161 H Ammonia Troponin I 247 H* 275 H* Total Protein 8.4 H Albumin 3.5 Lipase 74 TSH Urine Color Yellow Urine Clarity Clear Urine pH 5.5 Ur Specific [place] 1.020 Urine Protein 100 H Urine Ketones >=160 H Urine Blood Large H Urine Nitrite Negative Urine Bilirubin Small H Urine Urobilinogen 0.2 Ur Leukocyte Esterase Negative Urine RBC 5-10 H Urine WBC Negative Ur Epithelial Cells Rare Urine Crystals Negative Urine Bacteria Negative Urine Casts Negative Urine Mucus Negative Ur Culture Indicated? No Urine Glucose 500 H Urine Opiates Screen Urine Methadone Screen Ur Barbiturates Screen Ur Tricyclics Screen Ur Amphetamines Screen U Benzodiazepines Scrn Urine Cocaine Screen Ur THC Screen 06/14/24 06/14/24 06/15/24 22:00 23:15 00:25 WBC RBC Hgb Hct MCV MCH MCHC RDW Plt Count MPV Immature Gran % Neutrophils % Lymphocytes % Monocytes % Eosinophils % Basophils % Nucleated RBC % Absolute Neutrophils Absolute Lymphocytes Absolute Monocytes Absolute Eosinophils Absolute Basophils PT INR VBG pH 7.09 L* VBG pCO2 18 L* VBG pO2 52 VBG HCO3 5 L VBG Total CO2 5 L VBG O2 Saturation 84 VBG Base Excess -25 L VBG Lactate Sodium Cancelled Potassium Cancelled Chloride Cancelled Carbon Dioxide Cancelled Anion Gap Cancelled BUN Cancelled Creatinine Cancelled Est GFR (CKD-EPI 2020) Cancelled Glucose Cancelled Calcium Cancelled Phosphorus Magnesium Total Bilirubin Conjugated Bilirubin AST ALT Alkaline Phosphatase Ammonia Troponin I 201 H* Total Protein Albumin Lipase TSH Urine Color Urine Clarity Urine pH Ur Specific [place] Urine Protein Urine Ketones Urine Blood Urine Nitrite Urine Bilirubin Urine Urobilinogen Ur Leukocyte Esterase Urine RBC Urine WBC Ur Epithelial Cells Urine Crystals Urine Bacteria Urine Casts Urine Mucus Ur Culture Indicated? Urine Glucose Urine Opiates Screen Negative Urine Methadone Screen Positive A Ur Barbiturates Screen Negative Ur Tricyclics Screen Negative Ur Amphetamines Screen Negative U Benzodiazepines Scrn Negative Urine Cocaine Screen Negative Ur THC Screen Negative 06/15/24 06/15/24 06/15/24 01:15 02:20 02:37 WBC RBC Hgb Hct MCV MCH MCHC RDW Plt Count MPV Immature Gran % Neutrophils % Lymphocytes % Monocytes % Eosinophils % Basophils % Nucleated RBC % Absolute Neutrophils Absolute Lymphocytes Absolute Monocytes Absolute Eosinophils Absolute Basophils PT INR VBG pH VBG pCO2 VBG pO2 VBG HCO3 VBG Total CO2 VBG O2 Saturation VBG Base Excess VBG Lactate Sodium Cancelled 138 Potassium Cancelled 3.5 Chloride Cancelled 103 Carbon Dioxide Cancelled 6.7 L Anion Gap Cancelled 28.3 H BUN Cancelled 18 Creatinine Cancelled 1.3 H Est GFR (CKD-EPI 2020) Cancelled 51.68 Glucose Cancelled 292 H Calcium Cancelled 9.8 Phosphorus Magnesium Total Bilirubin Conjugated Bilirubin AST ALT Alkaline Phosphatase Ammonia Troponin I 161 H* Cancelled Total Protein Albumin Lipase TSH 0.09 L Urine Color Urine Clarity Urine pH Ur Specific [place] Urine Protein Urine Ketones Urine Blood Urine Nitrite Urine Bilirubin Urine Urobilinogen Ur Leukocyte Esterase Urine RBC Urine WBC Ur Epithelial Cells Urine Crystals Urine Bacteria Urine Casts Urine Mucus Ur Culture Indicated? Urine Glucose Urine Opiates Screen Urine Methadone Screen Ur Barbiturates Screen Ur Tricyclics Screen Ur Amphetamines Screen U Benzodiazepines Scrn Urine Cocaine Screen Ur THC Screen 06/15/24 06/15/24 06/15/24 03:15 04:10 05:15 WBC RBC Hgb Hct MCV MCH MCHC RDW Plt Count MPV Immature Gran % Neutrophils % Lymphocytes % Monocytes % Eosinophils % Basophils % Nucleated RBC % Absolute Neutrophils Absolute Lymphocytes Absolute Monocytes Absolute Eosinophils Absolute Basophils PT INR VBG pH VBG pCO2 VBG pO2 VBG HCO3 VBG Total CO2 VBG O2 Saturation VBG Base Excess VBG Lactate Sodium Cancelled 138 Cancelled Potassium Cancelled 3.5 Cancelled Chloride Cancelled 105 Cancelled Carbon Dioxide Cancelled 7.2 L Cancelled Anion Gap Cancelled 25.8 H Cancelled BUN Cancelled 18 Cancelled Creatinine Cancelled 1.2 H Cancelled Est GFR (CKD-EPI 2020) Cancelled 56.89 Cancelled Glucose Cancelled 266 H Cancelled Calcium Cancelled 9.7 Cancelled Phosphorus Magnesium Total Bilirubin Conjugated Bilirubin AST ALT Alkaline Phosphatase Ammonia Troponin I Total Protein Albumin Lipase TSH Urine Color Urine Clarity Urine pH Ur Specific [place] Urine Protein Urine Ketones Urine Blood Urine Nitrite Urine Bilirubin Urine Urobilinogen Ur Leukocyte Esterase Urine RBC Urine WBC Ur Epithelial Cells Urine Crystals Urine Bacteria Urine Casts Urine Mucus Ur Culture Indicated? Urine Glucose Urine Opiates Screen Urine Methadone Screen Ur Barbiturates Screen Ur Tricyclics Screen Ur Amphetamines Screen U Benzodiazepines Scrn Urine Cocaine Screen Ur THC Screen 06/15/24 06/15/24 06/15/24 05:40 06:50 07:15 WBC 15.37 H RBC 5.92 H Hgb 14.6 Hct 46.0 MCV 78 L MCH 24.7 L MCHC 31.7 L RDW 18.0 H Plt Count 226 MPV 11.1 H Immature Gran % Neutrophils % Lymphocytes % Monocytes % Eosinophils % Basophils % Nucleated RBC % Absolute Neutrophils Absolute Lymphocytes Absolute Monocytes Absolute Eosinophils Absolute Basophils PT 10.6 INR 1.1 VBG pH VBG pCO2 VBG pO2 VBG HCO3 VBG Total CO2 VBG O2 Saturation VBG Base Excess VBG Lactate Sodium 139 Cancelled Potassium 3.4 L Cancelled Chloride 107 Cancelled Carbon Dioxide 8.5 L Cancelled Anion Gap 23.5 H Cancelled BUN 18 Cancelled Creatinine 1.2 H Cancelled Est GFR (CKD-EPI 2021) 56.89 Cancelled Glucose 201 H Cancelled Calcium 9.7 Cancelled Phosphorus < 2.0 L Magnesium 2.0 Total Bilirubin 0.70 Conjugated Bilirubin 0.2 AST 21 ALT 27 Alkaline Phosphatase 157 H Ammonia < 10 L Troponin I 157 H* Total Protein 8.3 H Albumin 3.3 L Lipase TSH Urine Color Urine Clarity Urine pH Ur Specific [place] Urine Protein Urine Ketones Urine Blood Urine Nitrite Urine Bilirubin Urine Urobilinogen Ur Leukocyte Esterase Urine RBC Urine WBC Ur Epithelial Cells Urine Crystals Urine Bacteria Urine Casts Urine Mucus Ur Culture Indicated? Urine Glucose Urine Opiates Screen Urine Methadone Screen Ur Barbiturates Screen Ur Tricyclics Screen Ur Amphetamines Screen U Benzodiazepines Scrn Urine Cocaine Screen Ur THC Screen 06/15/24 06/15/24 06/15/24 09:15 11:15 13:15 WBC RBC Hgb Hct MCV MCH MCHC RDW Plt Count MPV Immature Gran % Neutrophils % Lymphocytes % Monocytes % Eosinophils % Basophils % Nucleated RBC % Absolute Neutrophils Absolute Lymphocytes Absolute Monocytes Absolute Eosinophils Absolute Basophils PT INR VBG pH VBG pCO2 VBG pO2 VBG HCO3 VBG Total CO2 VBG O2 Saturation VBG Base Excess VBG Lactate Sodium Cancelled Cancelled Cancelled Potassium Cancelled Cancelled Cancelled Chloride Cancelled Cancelled Cancelled Carbon Dioxide Cancelled Cancelled Cancelled Anion Gap Cancelled Cancelled Cancelled BUN Cancelled Cancelled Cancelled Creatinine Cancelled Cancelled Cancelled Est GFR (CKD-EPI 2020) Cancelled Cancelled Cancelled Glucose Cancelled Cancelled Cancelled Calcium Cancelled Cancelled Cancelled Phosphorus Magnesium Total Bilirubin Conjugated Bilirubin AST ALT Alkaline Phosphatase Ammonia Troponin I Total Protein Albumin Lipase TSH Urine Color Urine Clarity Urine pH Ur Specific [place] Urine Protein Urine Ketones Urine Blood Urine Nitrite Urine Bilirubin Urine Urobilinogen Ur Leukocyte Esterase Urine RBC Urine WBC Ur Epithelial Cells Urine Crystals Urine Bacteria Urine Casts Urine Mucus Ur Culture Indicated? Urine Glucose Urine Opiates Screen Urine Methadone Screen Ur Barbiturates Screen Ur Tricyclics Screen Ur Amphetamines Screen U Benzodiazepines Scrn Urine Cocaine Screen Ur THC Screen 06/15/24 06/15/24 06/15/24 15:15 17:15 19:15 WBC RBC Hgb Hct MCV MCH MCHC RDW Plt Count MPV Immature Gran % Neutrophils % Lymphocytes % Monocytes % Eosinophils % Basophils % Nucleated RBC % Absolute Neutrophils Absolute Lymphocytes Absolute Monocytes Absolute Eosinophils Absolute Basophils PT INR VBG pH VBG pCO2 VBG pO2 VBG HCO3 VBG Total CO2 VBG O2 Saturation VBG Base Excess VBG Lactate Sodium Cancelled Cancelled Cancelled Potassium Cancelled Cancelled Cancelled Chloride Cancelled Cancelled Cancelled Carbon Dioxide Cancelled Cancelled Cancelled Anion Gap Cancelled Cancelled Cancelled BUN Cancelled Cancelled Cancelled Creatinine Cancelled Cancelled Cancelled Est GFR (CKD-EPI 2020) Cancelled Cancelled Cancelled Glucose Cancelled Cancelled Cancelled Calcium Cancelled Cancelled Cancelled Phosphorus Magnesium Total Bilirubin Conjugated Bilirubin AST ALT Alkaline Phosphatase Ammonia Troponin I Total Protein Albumin Lipase TSH Urine Color Urine Clarity Urine pH Ur Specific [place] Urine Protein Urine Ketones Urine Blood Urine Nitrite Urine Bilirubin Urine Urobilinogen Ur Leukocyte Esterase Urine RBC Urine WBC Ur Epithelial Cells Urine Crystals Urine Bacteria Urine Casts Urine Mucus Ur Culture Indicated? Urine Glucose Urine Opiates Screen Urine Methadone Screen Ur Barbiturates Screen Ur Tricyclics Screen Ur Amphetamines Screen U Benzodiazepines Scrn Urine Cocaine Screen Ur THC Screen 06/15/24 06/15/24 21:15 23:15 WBC RBC Hgb Hct MCV MCH MCHC RDW Plt Count MPV Immature Gran % Neutrophils % Lymphocytes % Monocytes % Eosinophils % Basophils % Nucleated RBC % Absolute Neutrophils Absolute Lymphocytes Absolute Monocytes Absolute Eosinophils Absolute Basophils PT INR VBG pH VBG pCO2 VBG pO2 VBG HCO3 VBG Total CO2 VBG O2 Saturation VBG Base Excess VBG Lactate Sodium Cancelled Cancelled Potassium Cancelled Cancelled Chloride Cancelled Cancelled Carbon Dioxide Cancelled Cancelled Anion Gap Cancelled Cancelled BUN Cancelled Cancelled Creatinine Cancelled Cancelled Est GFR (CKD-EPI 2020) Cancelled Cancelled Glucose Cancelled Cancelled Calcium Cancelled Cancelled Phosphorus Magnesium Total Bilirubin Conjugated Bilirubin AST ALT Alkaline Phosphatase Ammonia Troponin I Total Protein Albumin Lipase TSH Urine Color Urine Clarity Urine pH Ur Specific [place] Urine Protein Urine Ketones Urine Blood Urine Nitrite Urine Bilirubin Urine Urobilinogen Ur Leukocyte Esterase Urine RBC Urine WBC Ur Epithelial Cells Urine Crystals Urine Bacteria Urine Casts Urine Mucus Ur Culture Indicated? Urine Glucose Urine Opiates Screen Urine Methadone Screen Ur Barbiturates Screen Ur Tricyclics Screen Ur Amphetamines Screen U Benzodiazepines Scrn Urine Cocaine Screen Ur THC Screen
[2024-06-15] MEDS: Metoclopramide 10 MG TAB PO ×3 (08:13→17:17)
[2024-06-15] MEDS: valACYclovir 500 MG TAB PO (08:13)
[2024-06-15] MEDS: Methadone Liquid 10 MG/ML 77 MG PO (08:15)
[2024-06-15] MEDS: Budesonide/Formoterol 160/4.5 6 GM 60 PUFF INH IH ×2 (08:25→20:15)
--- NOTE | 2024-06-15 08:30 | RT.EKG_ITS ---
APPROVED REPORT Exam: Resting ECG Reason for Exam: ST Elevation on tele- trop 157 Patient Location: I HR:87 bpm ECG Measurements Heart Rate 87 AXIS [place] 161 P 79 QRSd 95 QRS -27 QT 355 T 148 QTc 427 Conclusion Sinus rhythm...normal P axis, V-rate 50- 99 Left atrial enlargement...P, P'>60mS, <-0.15mV V1 Inferior infarct, old...Q >35mS, II III aVF Probable anterior infarct, age indeterminate...Q >35mS, T neg, V2-V5 Baseline artifact
[2024-06-15 08:54] LABS: BUN 16 mg/dL (7-18); CREATININE 1.1 mg/dL (0.55-1.02); Calcium 8.9 mg/dL (8.5-10.1); Chloride 107 mmol/L (98-107); Estimated GFR 63.15 (mL/min/1.73m2); Glucose 176 mg/dL (74-106); Potassium 3.3 mmol/L (3.5-5.1); Sodium 135 mmol/L (136-145)
[2024-06-15] MEDS: Enoxaparin 40 MG/0.4 ML SYR SC (09:56)
--- NOTE | 2024-06-15 10:53 | W.PM.PROGNOT ---
Date of Service Date of service: 06/15/24 Time of Service: 10:53 Assessment and Plan Assessment and plan (1) DKA (diabetic ketoacidosis): Start date: 06/14/24 Status: Acute Assessment and plan: -recently hospitalized and developed DKA after discharge -AG 26.6 on presentation to the ED with glucose 292 -has been on insulin drip with improvement on AG now down to 18 -will continue DKA protocol until patient is more awake and toelrating PO intake, then will start long acting insulin prior to discontinuing insulin drip Qualifiers: Diabetes mellitus complication detail: without coma Diabetes mellitus type: type 2 Qualified Code(s): E11.10 - Type 2 diabetes mellitus with ketoacidosis without coma (2) Acute gallstone pancreatitis: Assessment and plan: -resolving clinically except for some mild abdominal discomfort complaints upon readmission (3) Elevated troponin level not due myocardial infarction: Start date: 06/14/24 Status: Acute Assessment and plan: -[facility] [place] cardiology was consulted by the ED physician and this was thought to be demand troponin elevation without primary cardiac event. -Will trend troponins and continue cardiac monitoring. -No other interventions at this time. -Patient's atorvastatin will be maximized with metoprolol to be added for blood pressure control. Baby aspirin will be initiated with loading dose given in the ED upon admission. (4) Type 2 diabetes mellitus, with long-term current use of insulin: Status: Chronic Assessment and plan: Poor control historically now in DKA. Adjust outpatient medical therapy at discharge. 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 This may be DRAKE. Follow-up as an outpatient with PCP. PT/INR are normal and liver functions are minimally elevated but will be trended. Qualifiers: Ascites presence: unspecified Hepatic cirrhosis type: unspecified hepatic cirrhosis Qualified Code(s): K74.60 - Unspecified cirrhosis of liver (6) Hepatitis C: Assessment and plan: This was documented as cleared in the recent past. Consider reevaluating for viral load liver functions remain elevated postoperatively. Qualifiers: Hepatic coma status: without hepatic coma Viral hepatitis chronicity: chronic Qualified Code(s): B18.2 - Chronic viral hepatitis C Subjective Subjective Interval history since last seen: Patient fatigued and withdrawn but has periods throughout the day where she will communicate and has been taking PO meds. Exam Narrative Exam Narrative: ill appearing female laying in bed, fatigued and withdrawn, oriented x3, heart RRR, lungs CTAB, abdomen soft, mild diffuse tenderness but without rebound or guarding Objective Last Vital Signs Temp 99.0 F 06/15/24 01:00 Pulse 84 06/15/24 09:01 Resp 17 06/15/24 09:01 BP 122/68 06/15/24 09:01 Pulse Ox 95 06/15/24 09:01 Laboratory Results - last 24 hr 06/14/24 06/14/24 06/14/24 19:00 20:38 20:53 WBC 15.50 H RBC 6.02 H Hgb 14.5 Hct 47.9 H MCV 80 MCH 24.1 L MCHC 30.3 L RDW 17.8 H Plt Count 243 MPV 11.2 H Immature Gran % 0.7 Neutrophils % 81.5 Lymphocytes % 10.1 Monocytes % 7.2 Eosinophils % 0.0 Basophils % 0.5 Nucleated RBC % 0.0 Absolute Neutrophils 12.63 H Absolute Lymphocytes 1.57 Absolute Monocytes 1.12 H Absolute Eosinophils 0.00 Absolute Basophils 0.08 PT 11.0 INR 1.1 VBG pH VBG pCO2 VBG pO2 VBG HCO3 VBG Total CO2 VBG O2 Saturation VBG Base Excess VBG Lactate 1.0 Sodium 136 Potassium 3.7 Chloride 102 Carbon Dioxide 7.4 L Anion Gap 26.6 H BUN 17 Creatinine 1.4 H Est GFR (CKD-EPI 2020) 47.28 Glucose 233 H Calcium 9.8 Phosphorus Magnesium 2.2 Total Bilirubin 0.78 Conjugated Bilirubin AST 31 ALT 30 Alkaline Phosphatase 161 H Ammonia Troponin I 247 H* 275 H* Total Protein 8.4 H Albumin 3.5 Lipase 74 TSH Urine Color Yellow Urine Clarity Clear Urine pH 5.5 Ur Specific [place] 1.020 Urine Protein 100 H Urine Ketones >=160 H Urine Blood Large H Urine Nitrite Negative Urine Bilirubin Small H Urine Urobilinogen 0.2 Ur Leukocyte Esterase Negative Urine RBC 5-10 H Urine WBC Negative Ur Epithelial Cells Rare Urine Crystals Negative Urine Bacteria Negative Urine Casts Negative Urine Mucus Negative Ur Culture Indicated? No Urine Glucose 500 H Urine Opiates Screen Urine Methadone Screen Ur Barbiturates Screen Ur Tricyclics Screen Ur Amphetamines Screen U Benzodiazepines Scrn Urine Cocaine Screen Ur THC Screen 06/14/24 06/14/24 06/15/24 22:00 23:15 00:25 WBC RBC Hgb Hct MCV MCH MCHC RDW Plt Count MPV Immature Gran % Neutrophils % Lymphocytes % Monocytes % Eosinophils % Basophils % Nucleated RBC % Absolute Neutrophils Absolute Lymphocytes Absolute Monocytes Absolute Eosinophils Absolute Basophils PT INR VBG pH 7.09 L* VBG pCO2 18 L* VBG pO2 52 VBG HCO3 5 L VBG Total CO2 5 L VBG O2 Saturation 84 VBG Base Excess -25 L VBG Lactate Sodium Cancelled Potassium Cancelled Chloride Cancelled Carbon Dioxide Cancelled Anion Gap Cancelled BUN Cancelled Creatinine Cancelled Est GFR (CKD-EPI 2020) Cancelled Glucose Cancelled Calcium Cancelled Phosphorus Magnesium Total Bilirubin Conjugated Bilirubin AST ALT Alkaline Phosphatase Ammonia Troponin I 201 H* Total Protein Albumin Lipase TSH Urine Color Urine Clarity Urine pH Ur Specific [place] Urine Protein Urine Ketones Urine Blood Urine Nitrite Urine Bilirubin Urine Urobilinogen Ur Leukocyte Esterase Urine RBC Urine WBC Ur Epithelial Cells Urine Crystals Urine Bacteria Urine Casts Urine Mucus Ur Culture Indicated? Urine Glucose Urine Opiates Screen Negative Urine Methadone Screen Positive A Ur Barbiturates Screen Negative Ur Tricyclics Screen Negative Ur Amphetamines Screen Negative U Benzodiazepines Scrn Negative Urine Cocaine Screen Negative Ur THC Screen Negative 06/15/24 06/15/24 06/15/24 01:15 02:20 02:37 WBC RBC Hgb Hct MCV MCH MCHC RDW Plt Count MPV Immature Gran % Neutrophils % Lymphocytes % Monocytes % Eosinophils % Basophils % Nucleated RBC % Absolute Neutrophils Absolute Lymphocytes Absolute Monocytes Absolute Eosinophils Absolute Basophils PT INR VBG pH VBG pCO2 VBG pO2 VBG HCO3 VBG Total CO2 VBG O2 Saturation VBG Base Excess VBG Lactate Sodium Cancelled 138 Potassium Cancelled 3.5 Chloride Cancelled 103 Carbon Dioxide Cancelled 6.7 L Anion Gap Cancelled 28.3 H BUN Cancelled 18 Creatinine Cancelled 1.3 H Est GFR (CKD-EPI 2020) Cancelled 51.68 Glucose Cancelled 292 H Calcium Cancelled 9.8 Phosphorus Magnesium Total Bilirubin Conjugated Bilirubin AST ALT Alkaline Phosphatase Ammonia Troponin I 161 H* Cancelled Total Protein Albumin Lipase TSH 0.09 L Urine Color Urine Clarity Urine pH Ur Specific [place] Urine Protein Urine Ketones Urine Blood Urine Nitrite Urine Bilirubin Urine Urobilinogen Ur Leukocyte Esterase Urine RBC Urine WBC Ur Epithelial Cells Urine Crystals Urine Bacteria Urine Casts Urine Mucus Ur Culture Indicated? Urine Glucose Urine Opiates Screen Urine Methadone Screen Ur Barbiturates Screen Ur Tricyclics Screen Ur Amphetamines Screen U Benzodiazepines Scrn Urine Cocaine Screen Ur THC Screen 06/15/24 06/15/24 06/15/24 03:15 04:10 05:15 WBC RBC Hgb Hct MCV MCH MCHC RDW Plt Count MPV Immature Gran % Neutrophils % Lymphocytes % Monocytes % Eosinophils % Basophils % Nucleated RBC % Absolute Neutrophils Absolute Lymphocytes Absolute Monocytes Absolute Eosinophils Absolute Basophils PT INR VBG pH VBG pCO2 VBG pO2 VBG HCO3 VBG Total CO2 VBG O2 Saturation VBG Base Excess VBG Lactate Sodium Cancelled 138 Cancelled Potassium Cancelled 3.5 Cancelled Chloride Cancelled 105 Cancelled Carbon Dioxide Cancelled 7.2 L Cancelled Anion Gap Cancelled 25.8 H Cancelled BUN Cancelled 18 Cancelled Creatinine Cancelled 1.2 H Cancelled Est GFR (CKD-EPI 2020) Cancelled 56.89 Cancelled Glucose Cancelled 266 H Cancelled Calcium Cancelled 9.7 Cancelled Phosphorus Magnesium Total Bilirubin Conjugated Bilirubin AST ALT Alkaline Phosphatase Ammonia Troponin I Total Protein Albumin Lipase TSH Urine Color Urine Clarity Urine pH Ur Specific [place] Urine Protein Urine Ketones Urine Blood Urine Nitrite Urine Bilirubin Urine Urobilinogen Ur Leukocyte Esterase Urine RBC Urine WBC Ur Epithelial Cells Urine Crystals Urine Bacteria Urine Casts Urine Mucus Ur Culture Indicated? Urine Glucose Urine Opiates Screen Urine Methadone Screen Ur Barbiturates Screen Ur Tricyclics Screen Ur Amphetamines Screen U Benzodiazepines Scrn Urine Cocaine Screen Ur THC Screen 06/15/24 06/15/24 06/15/24 05:40 06:50 07:15 WBC 15.37 H RBC 5.92 H Hgb 14.6 Hct 46.0 MCV 78 L MCH 24.7 L MCHC 31.7 L RDW 18.0 H Plt Count 226 MPV 11.1 H Immature Gran % Neutrophils % Lymphocytes % Monocytes % Eosinophils % Basophils % Nucleated RBC % Absolute Neutrophils Absolute Lymphocytes Absolute Monocytes Absolute Eosinophils Absolute Basophils PT 10.6 INR 1.1 VBG pH VBG pCO2 VBG pO2 VBG HCO3 VBG Total CO2 VBG O2 Saturation VBG Base Excess VBG Lactate Sodium 139 Cancelled Potassium 3.4 L Cancelled Chloride 107 Cancelled Carbon Dioxide 8.5 L Cancelled Anion Gap 23.5 H Cancelled BUN 18 Cancelled Creatinine 1.2 H Cancelled Est GFR (CKD-EPI 2020) 56.89 Cancelled Glucose 201 H Cancelled Calcium 9.7 Cancelled Phosphorus < 2.0 L Magnesium 2.0 Total Bilirubin 0.70 Conjugated Bilirubin 0.2 AST 21 ALT 27 Alkaline Phosphatase 157 H Ammonia < 10 L Troponin I 157 H* Total Protein 8.3 H Albumin 3.3 L Lipase TSH Urine Color Urine Clarity Urine pH Ur Specific [place] Urine Protein Urine Ketones Urine Blood Urine Nitrite Urine Bilirubin Urine Urobilinogen Ur Leukocyte Esterase Urine RBC Urine WBC Ur Epithelial Cells Urine Crystals Urine Bacteria Urine Casts Urine Mucus Ur Culture Indicated? Urine Glucose Urine Opiates Screen Urine Methadone Screen Ur Barbiturates Screen Ur Tricyclics Screen Ur Amphetamines Screen U Benzodiazepines Scrn Urine Cocaine Screen Ur THC Screen 06/15/24 06/15/24 06/15/24 08:31 09:15 11:15 WBC RBC Hgb Hct MCV MCH MCHC RDW Plt Count MPV Immature Gran % Neutrophils % Lymphocytes % Monocytes % Eosinophils % Basophils % Nucleated RBC % Absolute Neutrophils Absolute Lymphocytes Absolute Monocytes Absolute Eosinophils Absolute Basophils PT INR VBG pH VBG pCO2 VBG pO2 VBG HCO3 VBG Total CO2 VBG O2 Saturation VBG Base Excess VBG Lactate Sodium 135 L Cancelled Cancelled Potassium 3.3 L Cancelled Cancelled Chloride 107 Cancelled Cancelled Carbon Dioxide 10.0 L Cancelled Cancelled Anion Gap 18.0 H Cancelled Cancelled BUN 16 Cancelled Cancelled Creatinine 1.1 H Cancelled Cancelled Est GFR (CKD-EPI 2020) 63.15 Cancelled Cancelled Glucose 176 H Cancelled Cancelled Calcium 8.9 Cancelled Cancelled Phosphorus Magnesium Total Bilirubin Conjugated Bilirubin AST ALT Alkaline Phosphatase Ammonia Troponin I Total Protein Albumin Lipase TSH Urine Color Urine Clarity Urine pH Ur Specific [place] Urine Protein Urine Ketones Urine Blood Urine Nitrite Urine Bilirubin Urine Urobilinogen Ur Leukocyte Esterase Urine RBC Urine WBC Ur Epithelial Cells Urine Crystals Urine Bacteria Urine Casts Urine Mucus Ur Culture Indicated? Urine Glucose Urine Opiates Screen Urine Methadone Screen Ur Barbiturates Screen Ur Tricyclics Screen Ur Amphetamines Screen U Benzodiazepines Scrn Urine Cocaine Screen Ur THC Screen 06/15/24 06/15/24 06/15/24 13:15 15:15 17:15 WBC RBC Hgb Hct MCV MCH MCHC RDW Plt Count MPV Immature Gran % Neutrophils % Lymphocytes % Monocytes % Eosinophils % Basophils % Nucleated RBC % Absolute Neutrophils Absolute Lymphocytes Absolute Monocytes Absolute Eosinophils Absolute Basophils PT INR VBG pH VBG pCO2 VBG pO2 VBG HCO3 VBG Total CO2 VBG O2 Saturation VBG Base Excess VBG Lactate Sodium Cancelled Cancelled Cancelled Potassium Cancelled Cancelled Cancelled Chloride Cancelled Cancelled Cancelled Carbon Dioxide Cancelled Cancelled Cancelled Anion Gap Cancelled Cancelled Cancelled BUN Cancelled Cancelled Cancelled Creatinine Cancelled Cancelled Cancelled Est GFR (CKD-EPI 2020) Cancelled Cancelled Cancelled Glucose Cancelled Cancelled Cancelled Calcium Cancelled Cancelled Cancelled Phosphorus Magnesium Total Bilirubin Conjugated Bilirubin AST ALT Alkaline Phosphatase Ammonia Troponin I Total Protein Albumin Lipase TSH Urine Color Urine Clarity Urine pH Ur Specific [place] Urine Protein Urine Ketones Urine Blood Urine Nitrite Urine Bilirubin Urine Urobilinogen Ur Leukocyte Esterase Urine RBC Urine WBC Ur Epithelial Cells Urine Crystals Urine Bacteria Urine Casts Urine Mucus Ur Culture Indicated? Urine Glucose Urine Opiates Screen Urine Methadone Screen Ur Barbiturates Screen Ur Tricyclics Screen Ur Amphetamines Screen U Benzodiazepines Scrn Urine Cocaine Screen Ur THC Screen 06/15/24 06/15/24 06/15/24 19:15 21:15 23:15 WBC RBC Hgb Hct MCV MCH MCHC RDW Plt Count MPV Immature Gran % Neutrophils % Lymphocytes % Monocytes % Eosinophils % Basophils % Nucleated RBC % Absolute Neutrophils Absolute Lymphocytes Absolute Monocytes Absolute Eosinophils Absolute Basophils PT INR VBG pH VBG pCO2 VBG pO2 VBG HCO3 VBG Total CO2 VBG O2 Saturation VBG Base Excess VBG Lactate Sodium Cancelled Cancelled Cancelled Potassium Cancelled Cancelled Cancelled Chloride Cancelled Cancelled Cancelled Carbon Dioxide Cancelled Cancelled Cancelled Anion Gap Cancelled Cancelled Cancelled BUN Cancelled Cancelled Cancelled Creatinine Cancelled Cancelled Cancelled Est GFR (CKD-EPI 2020) Cancelled Cancelled Cancelled Glucose Cancelled Cancelled Cancelled Calcium Cancelled Cancelled Cancelled Phosphorus Magnesium Total Bilirubin Conjugated Bilirubin AST ALT Alkaline Phosphatase Ammonia Troponin I Total Protein Albumin Lipase TSH Urine Color Urine Clarity Urine pH Ur Specific [place] Urine Protein Urine Ketones Urine Blood Urine Nitrite Urine Bilirubin Urine Urobilinogen Ur Leukocyte Esterase Urine RBC Urine WBC Ur Epithelial Cells Urine Crystals Urine Bacteria Urine Casts Urine Mucus Ur Culture Indicated? Urine Glucose Urine Opiates Screen Urine Methadone Screen Ur Barbiturates Screen Ur Tricyclics Screen Ur Amphetamines Screen U Benzodiazepines Scrn Urine Cocaine Screen Ur THC Screen Time Spent with Patient Time Spent with Patient: >50 minutes Time was spent: preparing to see the patient(eg.review tests), obtaining and/or reviewing separately otained hiistory, ordering medications,tests, procedures, referring, communicating with other health spiritual care coordinator, indepentently interpreting results, counseling the patient and care coordination
[2024-06-15 10:57] LABS: Anion Gap 13.6 mmol/L (3-11); BUN 16 mg/dL (7-18); CO2 13.4 mmol/L (21.0-32.0); CREATININE 1.1 mg/dL (0.55-1.02); Calcium 8.7 mg/dL (8.5-10.1); Chloride 109 mmol/L (98-107); Estimated GFR 63.15 (mL/min/1.73m2); Glucose 164 mg/dL (74-106); Potassium 3.1 mmol/L (3.5-5.1); Sodium 136 mmol/L (136-145)
--- NOTE | 2024-06-15 12:12 | INITIAL_ITS ---
Date of service: 06/15/24 Time of Service: 12:12 Care Management Initial Assmt Initial Assessment Reason for Hospitalization: diabetic keto acidosis Functional Status/Living Situation Patient Presentation: Denise is s/p lap radhay on 06/12. She was discharged home on 06/13. Readmission on 06/14 with change of mental status noted at home, and persistent abdominal pain. She was brought to the ER via ambulance- her called due to her increased confusion and inability to dress herself. Denise was sleeping, with the HOB elevated. She looked comfortable, but was not rousable. RN and report that she has not been rousable all morning. , Maxi, daughter and aunt were all present at the bedside. Town [place] Residence: [place] Resides with: Spouse (Maxi) Significant Other/Family: Local (Local (Maxi has 2 kids that live in the area, as well as 3 grandchildren. Denise has 2 children and 1 grandchild in the [place] area.)) Natural Supports: and family. Employment Status: Disabled Instrumental Activities of Daily Living (ADLs): Independent Activities/Hobbies/SocialSupport: Her MARY [facility]AY residential child care counselor is helpful Medications Medication Management: No Issues/Barriers identified Physical Functioning/Mobility Assistive Device: none Advance Directives Advance Directives: Do you have an Advance Directive: N 01/18/15 09:25 AD On File at [facility]: N 11/17/14 13:49 Date Asked 06/14/24 06/14/24 19:03 AD Date Reviewed COLST On File at [facility] No 01/12/24 19:57 COLST Date Scanned Code Status Resuscitation Status Full Code Insurance Coverage/Financial Issues Insurance: [employer] Financial Issues: has 3 squares and fuel assistance Care Team Visit Care Team Role Provider Type Lorena Mann NP Primary Care Provider NURSE PRACTITIONER Rubio Reyes MD Other Providers [facility] STAFF PHYSICIAN Aspen Perry MD Emergency Provider [facility] STAFF PHYSICIAN Stephan Finn Admit Provider NON-[facility] STAFF PHYSICIAN Attending Provider Discharge Potential Discharge Needs: PCP F/U Appt and Other Anticipated Barriers to Discharge: Medical Status Patient/Family Education Needs: Review discharge instructions, discuss Ask Me Three Transportation: Private vehicle Plan: Anticipate that Denise will be discharged home with no new services. She will follow up with her PCP. She will continue per her plan of care and transport home in a private vehicle with her . CM will continue to follow. PFSH All Active Problems (Updated 06/14/24 @ 23:55 by Stephan Finn) Elevated troponin level not due myocardial infarction (Acute) Acute postoperative abdominal pain (Acute) Diabetic ketoacidosis (Acute) DKA (diabetic ketoacidosis) (Acute) Corneal abrasion (Acute) Obstructive sleep apnea of adult (Acute) [facility] 12/23/23 Muscle spasm of left lower extremity (Acute) Muscle spasm of back (Acute) Diabetic cataract of right eye (Acute) Ulcer of right foot limited to breakdown of skin (Acute 04/16/23) [facility] Podiatry Ulcer of left foot, limited to breakdown of skin (Acute 04/16/23) [facility] Podiatry Iron deficiency (Acute) 03/2023 iron studies indicating deficiency (NOT anemic) Migraine (Chronic) [facility] Neuro Chronic constipation (Chronic) [facility] GI Type 2 diabetes mellitus, with long-term current use of insulin (Chronic) With neuropathy & retinopathy (left, mild) Obesity (Chronic) Cirrhosis of liver (Chronic) [facility] GI Asthma (Chronic) Tobacco use disorder (Chronic) Started smoking age 9 Poorly controlled type 2 diabetes mellitus (Chronic 03/23/18) Polypharmacy (Chronic 12/14/15) Mild nonproliferative diabetic retinopathy associated with type 2 diabetes mellitus (Chronic 01/22/16) Mental health disorder (Chronic) Pt reports being diagnosed with bipolar disorder, disassociative disorder, anxiety, & multiple personality disorder Hypomagnesemia (Chronic 09/30/16) Hyperlipidemia (Chronic 09/30/16) 10-year ASCVD risk = unable to calculate due to not being age 40+ however dx T2DM, so Rx for statin 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 Jimenez [facility] 2023: [facility] GI Depressive disorder (Chronic 10/31/14) ADMISSION SUICIDAL THOUGHTS 06/13/14 OD ATTEMPTS IN PAST Chronic nausea (Chronic) EGD 04/16/16 Dr. 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 Ferrer Family History Mother , 46yo due to kidney & liver failure due to alcohol Substance use disorder Alcohol use disorder Father , 62yo from ALS Substance use disorder Alcohol use disorder ALS (amyotrophic lateral sclerosis) Grandmother Colon cancer Paternal Paternal Uncle Cardiac arrest Substance use disorder Alcohol and Pain Medication Abuse Social History Smoking/Tobacco Use Status: Current every day Tobacco Type: cigarettes Smoking packs per day: 1 Smoking cigarettes per day: 20.0 Tobacco: How many years used: 33 Quit status: considering quitting Smoking risk assessment performed?: Yes Alcohol Intake: never Drug use: Occasionally Substance use type: former substance user and marijuana Details: Pt. 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 Pets and animals: Yes (1 dog, 4 cats) Pets and animals: cat(s) and dog(s) Sexually active: Yes Do you think of yourself as: straight/heterosexual Current gender identity: female Other: 09/2022: pt reports she is engaged What is your relationship status?: How often do you talk on the phone with friends or family?: three or more times per week How often do you get together with friends or relatives?: once per week How often do you attend orthodox or synagogue services?: decline to answer Do you belong to any clubs or organized social groups?: no Panel score (0-1 are the most socially isolated patients): 2 What type of physical activity do you participate in: none Duration: decline to answer Frequency: decline to answer Seatbelt use: always Helmet use: No (No reason to wear one) Drive intox or ride w/intox double bottom 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 Readmission Within the Past 30 Days Yes or No: Yes Date of First Admission Date of 1st Admission: 06/08/24 Date of this Admission Date of Admission: 06/14/24 This admission was: Through ED Office Visit Since 1st Admission Have you seen your PCP in the office since discharge?: No Date of PCP Appointment: Was only home 1 day. Had an appointment Been Scheduled?: No Describe barriers for scheduling or getting an appointment: Was discharged on a Friday, unable to make appt. I. Interview patient and/or Family Difficulty reaching your doctor or getting an office appt?: No Have you had trouble purchasing/ or taking medication?: No Have you had trouble with getting meals at home?: No Did you feel ready for discharge when you left the last time: No Why did you not feel ready for discharge?: Was still having some pain and felt she needed more time Did you call your physician beore you came to the ED?: No How do you think you became sick enough to come back?: not sure, not ready to be discharged the first itme Ask the Care Team Members: What do you think caused the patient to be readmitted: overall poor health and recent surgery ED visits How many ED visits in the past 12 months: 13 SDOH(Care Management) Screening Will the Patient Participate in the Screening?: Yes (screening done with ) Do you worry about having a steady place to live?: no In the past 12 months, have you had to go without electric, gas, oil or water in your home?: no Have you or anyone in your house had to go without enough food to eat?: no Has lack of transportation kept you from medical appointments or from doing things needed for daily living?: no Has anyone in your support network made you feel unsafe for any reason?: no
[2024-06-15 12:44] LABS: Anion Gap 10.5 mmol/L (3-11); BUN 16 mg/dL (7-18); CO2 15.5 mmol/L (21.0-32.0); CREATININE 1.1 mg/dL (0.55-1.02); Calcium 8.8 mg/dL (8.5-10.1); Chloride 111 mmol/L (98-107); Estimated GFR 63.15 (mL/min/1.73m2); Glucose 120 mg/dL (74-106); Potassium 3.2 mmol/L (3.5-5.1); Sodium 137 mmol/L (136-145)
[2024-06-15] MEDS: INSULIN REGULAR IN 0.9 % NACL 100 UNIT/100 ML BAG 5.5 UNIT IV (15:31)
--- NOTE | 2024-06-15 16:14 | PHA.REVIEW2 ---
Pharmacy Admission Review Admission Clinical Review Admission Pharmacy Review: Elevated troponin level not due myocardial infarction (Acute) DKA (diabetic ketoacidosis) (Acute) Penicillins Allergy (Severe, Verified 06/08/24 11:53) lip and facial swelling lamotrigine (From Lamictal) Allergy (Unknown, Verified 06/08/24 11:53) Skin Rash clindamycin Adverse Reaction (Severe, Verified 06/08/24 11:53) Nausea & vomiting aspirin Adverse Reaction (Intermediate, Verified 06/08/24 11:53) nausea/pain Resuscitation Status Full Code Height 5 ft 4 in Weight 103.1 kg Pharmacy Admission Review Renal Dosing Renal Dosing: BUN Cancelled 06/15/24 23:15 Creatinine Cancelled 06/15/24 23:15 Medications needing adjustments: Reviewed (crcl = 75, no adjustments needed) Anticoagulation Anticoagulation: Hgb 14.6 g/dL (11.2-15.7) 06/15/24 05:40 Hct 46.0 % (36.0-46.0) 06/15/24 05:40 Plt Count 226 10^3/uL (130-400) 06/15/24 05:40 INR 1.1 (0.9-1.1) 06/15/24 05:40 Creatinine Cancelled 06/15/24 23:15 DVT Prophylaxis: Reviewed Medications: Enoxaparin (40 mg subq daily) Therapeutic Anticoagulation: N/A Opiate Usage Evaluate Pain Scale/Pains Meds: Reviewed (not on opiates. Receives methadone outpatient, confirmed dose w/BAART = 77 mg daily (pt receives monthly take homes)) Scheduled Bowel Reg ordered if on Opiates?: No Relevant Labs Relevant Labs: Sodium Cancelled 06/15/24 23:15 Potassium Cancelled 06/15/24 23:15 Chloride Cancelled 06/15/24 23:15 Phosphorus < 2.0 mg/dL (2.6-4.7) L 06/15/24 05:40 Magnesium 2.0 mg/dL (1.8-2.4) 06/15/24 05:40 Electrolytes, C-Reactive P, ESR: Reviewed (anion gap = 10.5 @ 1227 (from 26.6)) DM Control DM Control: Reviewed Insulin Dosing, Diabetic Medication: DKA - insulin drip @ 5.5 units/hr - uses tresiba (insulin degludec) long acting + insulin aspart sliding scale w/meals Cardiac Review Cardiac Review: Troponin I 157 ng/L (<or=51) H* 06/15/24 05:40 BP, HR, EF%: Reviewed List meds needing interventions: elevated troponin (not NE), hypertensive - metoprolol 25 mg q6h, ASA 81 mg daily added (ASA 300 mg given in ED). takes clonidine 0.2 mg QHS at home but otherwise not on antihypertensives. atorvastatin increased to 80 mg daily (has been on 10 mg daily) QTc Review QTc: Reviewed (QTc = 427 today) IV to PO Switch IV Medications: Reviewed (IV insulin drip necessary, transition to subQ when appropriate + IV abx until tolerating PO) Home Meds Home Med List reviewed: Reviewed Relevent Home Meds Not ordered & why?: Advair diskus - therapeutic sub to symbicort Current Meds Current Medication Order Review: Reviewed Pharmacy Antibiotic Review Pharmacy Antibiotic Activity: Reviewed, no change (cefepime 2g q8h. WBC = 15.37 - surgical consult, blood cultures pending)
[2024-06-15] MEDS: POTASSIUM CHLORIDE/D5-0.45NACL 1,000 ML 200 MEQ IV ×2 (18:01→23:52)
[2024-06-15 19:56] LABS: BE (Venous) -13 mmol/L (-2-3); HCO3 (Venous) 14 mmol/L (23-28); O2 Sat (Venous) 97 %; TCO2 (Venous) 13 mmol/L (24-29); pCO2 (Venous) 30 mmHg (41-51); pH (Venous) 7.27 (7.31-7.41); pO2 (Venous) 84 mmHg
[2024-06-15 20:15] LABS: Anion Gap 11.1 mmol/L (3-11); BUN 13 mg/dL (7-18); CO2 14.9 mmol/L (21.0-32.0); CREATININE 0.9 mg/dL (0.55-1.02); Calcium 8.9 mg/dL (8.5-10.1); Chloride 111 mmol/L (98-107); Estimated GFR 80.34 (mL/min/1.73m2); Glucose 131 mg/dL (74-106); Potassium 3.3 mmol/L (3.5-5.1); Sodium 137 mmol/L (136-145)
[2024-06-15] MEDS: Acetaminophen 500 MG TAB 1000 MG PO (21:16)
[2024-06-15] MEDS: Milk of Magnesia 30 ML CUP PO (21:58)
[2024-06-15] MEDS: MEROPENEM 1 GM in Normal Saline 100 ML IVPB (23:53)
[2024-06-15 23:56] LABS: Anion Gap 12.4 mmol/L (3-11); BUN 12 mg/dL (7-18); CO2 14.6 mmol/L (21.0-32.0); CREATININE 0.9 mg/dL (0.55-1.02); Calcium 8.8 mg/dL (8.5-10.1); Chloride 112 mmol/L (98-107); Estimated GFR 80.34 (mL/min/1.73m2); Glucose 140 mg/dL (74-106); Potassium 3.4 mmol/L (3.5-5.1); Sodium 139 mmol/L (136-145)
[2024-06-16] VITALS (19 sets, daily range): BP systolic 89–121; BP diastolic 55–93; PULSE 70–99; RESP 8–19; TEMP 36.7; O2SAT 96–100
[2024-06-16] MEDS: POTASSIUM CHLORIDE/D5-0.45NACL 1,000 ML 125 MEQ IV ×3 (00:42→18:33)
[2024-06-16] MEDS: CEFEPIME 2 GM in Normal Saline 100 ML IVPB ×2 (02:08→10:18)
[2024-06-16] MEDS: Ondansetron O.D.T. 4 MG TABEF 8 MG PO (03:12)
[2024-06-16 03:59] LABS: Anion Gap 10.6 mmol/L (3-11); BUN 11 mg/dL (7-18); CO2 16.4 mmol/L (21.0-32.0); CREATININE 0.9 mg/dL (0.55-1.02); Calcium 9.1 mg/dL (8.5-10.1); Chloride 110 mmol/L (98-107); Estimated GFR 80.34 (mL/min/1.73m2); Glucose 143 mg/dL (74-106); Potassium 3.4 mmol/L (3.5-5.1); Sodium 137 mmol/L (136-145)
[2024-06-16] MEDS: Metoprolol 25 MG TAB PO ×4 (05:43→23:52)
[2024-06-16] MEDS: Promethazine 25 MG TAB PO (05:44)
[2024-06-16] MEDS: Polyethylene Glycol 3350 17 GM PACKET PO (05:51)
[2024-06-16] MEDS: MEROPENEM 1 GM in Normal Saline 100 ML IVPB ×3 (05:51→22:43)
[2024-06-16 06:23] LABS: ALT 22 U/L (14-59); AST 26 U/L (15-37); Albumin 2.4 g/dL (3.4-5.0); Alkaline Phosphatase 128 U/L (46-116); Anion Gap 12.5 mmol/L (3-11); BUN 10 mg/dL (7-18); Bilirubin, Total 0.51 mg/dL (0.2-1.0); CO2 16.5 mmol/L (21.0-32.0); CREATININE 0.8 mg/dL (0.55-1.02); Calcium 8.8 mg/dL (8.5-10.1); Chloride 111 mmol/L (98-107); Estimated GFR 92.54 (mL/min/1.73m2); Glucose 150 mg/dL (74-106); Lipase 69 U/L (16-77); Potassium 3.3 mmol/L (3.5-5.1); Sodium 140 mmol/L (136-145); Total Protein 6.2 g/dL (6.4-8.2)
[2024-06-16] MEDS: Omeprazole 20 MG CAPCR 40 MG PO (07:44)
[2024-06-16] MEDS: valACYclovir 500 MG TAB PO (07:44)
[2024-06-16] MEDS: Pregabalin 100 MG CAP 200 MG PO ×3 (07:44→21:05)
[2024-06-16] MEDS: Lurasidone 40 MG TAB 80 MG PO (07:45)
[2024-06-16] MEDS: Magnesium Oxide 400 MG TAB PO ×2 (07:45→21:04)
[2024-06-16] MEDS: Metoclopramide 10 MG TAB PO ×3 (07:45→16:51)
[2024-06-16] MEDS: Celecoxib 200 MG CAP PO (07:46)
[2024-06-16] MEDS: Normal Saline Flush 10 ML SYR IVP ×2 (07:46→21:07)
[2024-06-16] MEDS: Budesonide/Formoterol 160/4.5 6 GM 60 PUFF INH IH ×2 (08:00→20:13)
[2024-06-16 08:14] LABS: Anion Gap 9.1 mmol/L (3-11); BUN 10 mg/dL (7-18); CO2 16.9 mmol/L (21.0-32.0); CREATININE 0.8 mg/dL (0.55-1.02); Calcium 8.7 mg/dL (8.5-10.1); Chloride 107 mmol/L (98-107); Estimated GFR 92.54 (mL/min/1.73m2); Glucose 213 mg/dL (74-106); Potassium 3.7 mmol/L (3.5-5.1); Sodium 133 mmol/L (136-145)
[2024-06-16] MEDS: Methadone Liquid 10 MG/ML 77 MG PO (08:21)
[2024-06-16] MEDS: Enoxaparin 40 MG/0.4 ML SYR SC (10:19)
[2024-06-16] MEDS: INSULIN REGULAR IN 0.9 % NACL 100 UNIT/100 ML BAG 8 UNIT IV (11:22)
[2024-06-16 12:33] LABS: Anion Gap 8.5 mmol/L (3-11); BUN 10 mg/dL (7-18); CO2 17.5 mmol/L (21.0-32.0); CREATININE 0.9 mg/dL (0.55-1.02); Calcium 8.8 mg/dL (8.5-10.1); Chloride 109 mmol/L (98-107); Estimated GFR 80.34 (mL/min/1.73m2); Glucose 127 mg/dL (74-106); Potassium 3.5 mmol/L (3.5-5.1); Sodium 135 mmol/L (136-145)
[2024-06-16] MEDS: Miconazole 2% Topical Powder 85 GM BTL (14:00)
--- NOTE | 2024-06-16 14:11 | W.PM.PROGNOT ---
Date of Service Date of service: 06/16/24 Time of Service: 14:11 Assessment and Plan Assessment and plan (1) DKA (diabetic ketoacidosis): Start date: 06/14/24 Status: Acute Assessment and plan: -recently hospitalized for cholecystectomy and developed DKA after discharge -AG 26.6 on presentation to the ED, still 12.4 this morning but now closed at 8.5 on insulin drip -She may be ready to transition this afternoon to subcutaneous insulin if she is eating and feeling better. Qualifiers: Diabetes mellitus type: type 2 Diabetes mellitus complication detail: without coma Qualified Code(s): E11.10 - Type 2 diabetes mellitus with ketoacidosis without coma (2) Acute gallstone pancreatitis: Assessment and plan: -resolving clinically except for some mild abdominal discomfort complaints upon readmission. -Surgery concerned for developing abscess, but CT negative. Even so, on meropenem per Dr. Reyes's recommendation. I don't see an indication for double coverage with cefepime, will stop this. -some of her nausea is related to her chronic gastroparesis. (3) Elevated troponin level not due myocardial infarction: Start date: 06/14/24 Status: Acute Assessment and plan: -[facility] [place] cardiology was consulted by the ED physician and this was thought to be demand troponin elevation without primary cardiac event. -trend continued down, not following today. --Patient's atorvastatin was maximized, ASA added, and metoprolol to be added for blood pressure control. (4) Type 2 diabetes mellitus, with long-term current use of insulin: Status: Chronic Assessment and plan: Poor control historically with last A1c 10.6 on 06/08, admitted in DKA as above. Adjust outpatient medical therapy at discharge. 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 Her cirrhosis diagnosis is remote, per GI notes it looks like it was made via MRI prior to HCV treatment. Her current imaging and labs don't indicate cirrhosis (FIB-4 of 1.1). Her previous label may be an overdiagnosis, and she would probably benefit from liver elastography as an outpatient to clarify need for onging cirrhosis monitoring. She is on chronic NSAID therapy with celecoxib, which would be contraindicated in cirrhosis. Stop this for now. (6) Opioid use disorder: Assessment and plan: Has been stable on methadone, but with illness she appears oversedated after dosing. High dose pregabalin (above dosing range for diabetic neuropathy) also contributing. Will cut pregabalin and methadone dose short term. Subjective Subjective Patient reports: denies diarrhea, vomiting, shortness of breath or fever Interval history since last seen: Still doesn't feel great. Not really hungry, just took some clears and has a little nausea. Tired. No chest pain. Exam Narrative Exam Narrative: ill appearing female laying in bed, fatigued and withdrawn, sleepy appearing though awakes and oriented x3, heart RRR, lungs CTAB, abdomen soft, mild diffuse tenderness but without rebound or guarding, extremities not tender, no edema. Objective Last Vital Signs Temp 36.7 C 06/16/24 07:28 Pulse 77 06/16/24 08:01 Resp 13 06/16/24 08:01 BP 120/85 06/16/24 08:01 Pulse Ox 99 06/16/24 08:01 Laboratory Results - last 24 hr 06/15/24 06/15/24 06/16/24 19:45 23:30 03:30 VBG pH 7.27 L VBG pCO2 30 L VBG pO2 84 VBG HCO3 14 L VBG Total CO2 13 L VBG O2 Saturation 97 VBG Base Excess -13 L Sodium 137 139 137 Potassium 3.3 L 3.4 L 3.4 L Chloride 111 H 112 H 110 H Carbon Dioxide 14.9 L 14.6 L 16.4 L Anion Gap 11.1 H 12.4 H 10.6 BUN 13 12 11 Creatinine 0.9 0.9 0.9 Est GFR (CKD-EPI 2020) 80.34 80.34 80.34 Glucose 131 H 140 H 143 H Calcium 8.9 8.8 9.1 Total Bilirubin AST ALT Alkaline Phosphatase Total Protein Albumin Lipase 06/16/24 06/16/24 06/16/24 05:30 07:55 12:00 VBG pH VBG pCO2 VBG pO2 VBG HCO3 VBG Total CO2 VBG O2 Saturation VBG Base Excess Sodium 140 133 L 135 L Potassium 3.3 L 3.7 3.5 Chloride 111 H 107 109 H Carbon Dioxide 16.5 L 16.9 L 17.5 L Anion Gap 12.5 H 9.1 8.5 BUN 10 10 10 Creatinine 0.8 0.8 0.9 Est GFR (CKD-EPI 2020) 92.54 92.54 80.34 Glucose 150 H 213 H 127 H Calcium 8.8 8.7 8.8 Total Bilirubin 0.51 AST 26 ALT 22 Alkaline Phosphatase 128 H Total Protein 6.2 L Albumin 2.4 L Lipase 69 Time Spent with Patient Time Spent with Patient: >50 minutes Time was spent: preparing to see the patient(eg.review tests), obtaining and/or reviewing separately otained hiistory, ordering medications,tests, procedures, referring, communicating with other health plant care worker, indepentently interpreting results, counseling the patient and care coordination
--- NOTE | 2024-06-16 14:36 | PDOC.CMPRO ---
Date of service: 06/16/24 Time of Service: 13:00 Care Management Progress Note Progress Note Text Progress Note Text: Denise was up in the bedside chair, sleeping, when KLARISSA met with her the first time today. She was rousable, but unable to keep herself awake. She had her uneaten clear liquid lunch in front of her. She stated that she just doesn't feel like having anything. Her RN did stated that Denise is drinking plenty of water. KLARISSA met with Denise again, later in the day. She was in bed, with HOB up. She was awake, but still drowsy. She stated that she has no appetite, but also has no pain. When asked what brought her back to the hospital so soon, she didn't know and was soon drifting off. Denise is still on running IVF and also an insulin drip, which is being titrated as able. Discharge Potential Discharge Needs: PCP F/U Appt Anticipated Barriers to Discharge: Medical Status Patient/Family Education Needs: Review discharge instructions, discuss Ask Me Three Transportation: Private vehicle Plan: Anticipate that Denise will be discharged home with no new services, once medically stable. She will follow up with her PCP. She will continue per her plan of care and transport home in a private vehicle with her . CM will continue to follow and update the plan as needed. SDOH(Care Management) Screening Will the Patient Participate in the Screening?: Yes (screening done with ) Do you worry about having a steady place to live?: no In the past 12 months, have you had to go without electric, gas, oil or water in your home?: no Have you or anyone in your house had to go without enough food to eat?: no Has lack of transportation kept you from medical appointments or from doing things needed for daily living?: no Has anyone in your support network made you feel unsafe for any reason?: no
[2024-06-16 18:50] LABS: Anion Gap 8.1 mmol/L (3-11); BUN 9 mg/dL (7-18); CO2 18.9 mmol/L (21.0-32.0); CREATININE 0.8 mg/dL (0.55-1.02); Calcium 8.5 mg/dL (8.5-10.1); Chloride 109 mmol/L (98-107); Estimated GFR 92.54 (mL/min/1.73m2); Glucose 92 mg/dL (74-106); Potassium 3.2 mmol/L (3.5-5.1); Sodium 136 mmol/L (136-145)
[2024-06-16] MEDS: cloNIDine 0.1 MG TAB 0.2 MG PO (21:03)
[2024-06-16] MEDS: Atorvastatin 40 MG TAB 80 MG PO (21:03)
[2024-06-16] MEDS: Mirtazapine 15 MG TAB PO (21:05)
[2024-06-16 21:06] LABS: BE (Venous) -7 mmol/L (-2-3); HCO3 (Venous) 20 mmol/L (23-28); O2 Sat (Venous) 54 %; TCO2 (Venous) 18 mmol/L (24-29); pCO2 (Venous) 42 mmHg (41-51); pH (Venous) 7.28 (7.31-7.41); pO2 (Venous) 23 mmHg
[2024-06-16 21:18] LABS: Anion Gap 6.9 mmol/L (3-11); BUN 8 mg/dL (7-18); CO2 21.1 mmol/L (21.0-32.0); CREATININE 0.8 mg/dL (0.55-1.02); Calcium 8.8 mg/dL (8.5-10.1); Chloride 108 mmol/L (98-107); Estimated GFR 92.54 (mL/min/1.73m2); Glucose 118 mg/dL (74-106); Potassium 3.4 mmol/L (3.5-5.1); Sodium 136 mmol/L (136-145)
[2024-06-16 21:55] LABS: Bilirubin Negative (Negative); Blood Large (Negative); Clarity Clear (Clear); Glucose 100 mg/dL (Negative); Ketones Negative (Negative); Leukocyte Esterase Trace (Negative); Nitrite Negative (Negative); Urobilinogen 0.2 mg/dL (Up to 0.2)
[2024-06-16 22:20] LABS: Bacteria Negative HPF (Negative); C & S Indicated? C&S Done As Ordered; Crystals Negative HPF (Negative); Epithelial Cells Few HPF (Negative); Mucus Trace (Negative); Other Cells Few Yeast (Negative)
[2024-06-16] MEDS: Bisacodyl 5 MG TABEC PO (22:29)
[2024-06-17] VITALS (26 sets, daily range): BP systolic 98–156; BP diastolic 54–91; PULSE 76–100; RESP 8–29; TEMP 36.6–37.2; O2SAT 94–100
[2024-06-17 00:59] LABS: BE (Venous) -7 mmol/L (-2-3); HCO3 (Venous) 19 mmol/L (23-28); O2 Sat (Venous) 58 %; TCO2 (Venous) 18 mmol/L (24-29); pCO2 (Venous) 37 mmHg (41-51); pH (Venous) 7.32 (7.31-7.41); pO2 (Venous) 25 mmHg
[2024-06-17 01:12] LABS: Anion Gap 8.9 mmol/L (3-11); BUN 7 mg/dL (7-18); CO2 20.1 mmol/L (21.0-32.0); CREATININE 0.9 mg/dL (0.55-1.02); Calcium 8.9 mg/dL (8.5-10.1); Chloride 109 mmol/L (98-107); Estimated GFR 80.34 (mL/min/1.73m2); Glucose 212 mg/dL (74-106); Potassium 3.5 mmol/L (3.5-5.1); Sodium 138 mmol/L (136-145)
[2024-06-17] MEDS: POTASSIUM CHLORIDE/D5-0.45NACL 1,000 ML 125 MEQ IV ×2 (03:47→12:59)
[2024-06-17] MEDS: Ondansetron O.D.T. 4 MG TABEF 8 MG PO (04:02)
[2024-06-17 04:51] LABS: BE (Venous) -6 mmol/L (-2-3); HCO3 (Venous) 20 mmol/L (23-28); O2 Sat (Venous) 71 %; TCO2 (Venous) 18 mmol/L (24-29); pCO2 (Venous) 36 mmHg (41-51); pH (Venous) 7.35 (7.31-7.41); pO2 (Venous) 31 mmHg
[2024-06-17 04:59] LABS: Absolute Basophil Count 0.08 10^3/uL (0.0-0.2); Absolute Eosinophil Count 0.12 10^3/uL (0.0-0.7); Absolute Lymphocyte Count 4.06 10^3/uL (1.2-3.4); Absolute Monocyte Count 0.95 10^3/uL (0.1-0.8); Absolute Neutrophil Count 5.34 10^3/uL (1.2-6.7); Basophils % 0.7 %; Eosinophils % 1.1 %; HCT 38.9 % (36.0-46.0); HGB 12.4 g/dL (11.2-15.7); Immature Grans % 1.9 %; Lymphocytes % 37.8 %; MCH 24.4 pg (27.0-33.0); MCHC 31.9 % (32.0-36.0); MCV 76 fL (80-95); Monocytes % 8.8 %; Neutrophils % 49.7 %; Platelet Count 173 10^3/uL (130-400); RBC 5.09 10^6/uL (3.93-5.22); RDW 16.8 % (11.7-14.6); RDW-SD 45.7 fL; WBC 10.75 10^3/uL (4.4-10.8)
[2024-06-17 05:10] LABS: Anion Gap 8.3 mmol/L (3-11); BUN 6 mg/dL (7-18); CO2 20.7 mmol/L (21.0-32.0); CREATININE 0.9 mg/dL (0.55-1.02); Calcium 8.8 mg/dL (8.5-10.1); Chloride 110 mmol/L (98-107); Estimated GFR 80.34 (mL/min/1.73m2); Glucose 110 mg/dL (74-106); Potassium 3.2 mmol/L (3.5-5.1); Sodium 139 mmol/L (136-145)
[2024-06-17] MEDS: MEROPENEM 1 GM in Normal Saline 100 ML IVPB ×3 (05:56→22:20)
[2024-06-17] MEDS: Metoprolol 25 MG TAB PO ×4 (05:57→23:56)
[2024-06-17] MEDS: Mylanta Suspension 30 ML CUP PO (06:20)
[2024-06-17] MEDS: Metoclopramide 10 MG TAB PO ×4 (06:49→22:16)
[2024-06-17] MEDS: Lurasidone 40 MG TAB 80 MG PO (07:39)
[2024-06-17] MEDS: Normal Saline Flush 10 ML SYR IVP ×2 (07:40→22:46)
[2024-06-17] MEDS: valACYclovir 500 MG TAB PO (07:41)
[2024-06-17] MEDS: Omeprazole 20 MG CAPCR 40 MG PO (07:41)
[2024-06-17] MEDS: Magnesium Oxide 400 MG TAB PO ×2 (07:42→20:39)
[2024-06-17] MEDS: Pregabalin 100 MG CAP 200 MG PO ×2 (07:42→20:39)
[2024-06-17] MEDS: Budesonide/Formoterol 160/4.5 6 GM 60 PUFF INH IH ×2 (07:47→19:43)
[2024-06-17] MEDS: Methadone Liquid 10 MG/ML 60 MG PO (08:21)
[2024-06-17 09:02] LABS: BE (Venous) -4 mmol/L (-2-3); HCO3 (Venous) 22 mmol/L (23-28); O2 Sat (Venous) 74 %; TCO2 (Venous) 20 mmol/L (24-29); pCO2 (Venous) 40 mmHg (41-51); pH (Venous) 7.35 (7.31-7.41); pO2 (Venous) 32 mmHg
[2024-06-17 09:14] LABS: Anion Gap 5.4 mmol/L (3-11); BUN 5 mg/dL (7-18); CO2 23.6 mmol/L (21.0-32.0); CREATININE 0.8 mg/dL (0.55-1.02); Calcium 8.7 mg/dL (8.5-10.1); Chloride 107 mmol/L (98-107); Estimated GFR 92.54 (mL/min/1.73m2); Glucose 118 mg/dL (74-106); Potassium 3.2 mmol/L (3.5-5.1); Sodium 136 mmol/L (136-145)
[2024-06-17] MEDS: Enoxaparin 40 MG/0.4 ML SYR SC (09:59)
[2024-06-17] MEDS: Insulin Glargine 300 UNITS/3 ML PEN 50 UNITS SC ×2 (10:08→20:40)
--- NOTE | 2024-06-17 11:14 | PDOC.CMPRO ---
Date of service: 06/17/24 Time of Service: 11:15 Care Management Progress Note Progress Note Text Progress Note Text: Denise was sitting up in the bedside chair when CM met with her today. She was alert and pleasant and easily engaged in conversation. Both she and CM agreed that it is great to see her this way! She had eaten lunch. The first real food she has had since admission. She stated that she usually doesn't eat a lot at once, she is more of a grazer, snacking throughout the day, but it felt good to eat. Denise also mentioned that she doesn't follow up with her doctor enough. She was strongly encouraged to make and keep all of her appointments. She said she is going to start taking better care of herself, because she was scared by how horrible she felt. Ileanas' insulin drip was discontinued today, but her blood sugars are still being closely monitored. She is hopeful that she will be able to go home in the next day or 2. Discharge Potential Discharge Needs: PCP F/U Appt Anticipated Barriers to Discharge: None Identified and Medical Status Patient/Family Education Needs: Review discharge instructions, discuss Ask Me Three Transportation: Private vehicle Plan: Anticipate that Denise will be discharged home with no new services, once medically stable. She will follow up with her PCP. She will continue per her plan of care and transport home in a private vehicle with her . CM will continue to follow and update the plan as needed. SDOH(Care Management) Screening Will the Patient Participate in the Screening?: Yes (screening done with ) Do you worry about having a steady place to live?: no In the past 12 months, have you had to go without electric, gas, oil or water in your home?: no Have you or anyone in your house had to go without enough food to eat?: no Has lack of transportation kept you from medical appointments or from doing things needed for daily living?: no Has anyone in your support network made you feel unsafe for any reason?: no
[2024-06-17] MEDS: Insulin Aspart 300 UNITS/3 ML PEN SC (11:31)
--- NOTE | 2024-06-17 12:14 | W.PM.PROGNOT ---
Date of Service Date of service: 06/17/24 Time of Service: 12:14 Assessment and Plan Assessment and plan (1) DKA (diabetic ketoacidosis): Start date: 06/14/24 Status: Acute Assessment and plan: -recently hospitalized for cholecystectomy and developed DKA after discharge -AG 26.6 on presentation to the ED, closed 06/16 and stable this morning. -Transition to basal/bolus dosing this morning and shut off drip. Qualifiers: Diabetes mellitus type: type 2 Diabetes mellitus complication detail: without coma Qualified Code(s): E11.10 - Type 2 diabetes mellitus with ketoacidosis without coma (2) Acute gallstone pancreatitis: Assessment and plan: -resolving clinically except for some mild abdominal discomfort which is improving. -Surgery concerned for developing abscess, but CT negative. Even so, on meropenem per Dr. Reyes's recommendation. Was also on cefepime but this was discontinued 06/16 -Much of her nausea is related to her chronic gastroparesis, continue metoclopramide, small meals. (3) Elevated troponin level not due myocardial infarction: Start date: 06/14/24 Status: Acute Assessment and plan: -[facility] [place] was consulted by the ED physician and this was thought to be demand troponin elevation without primary cardiac event. -trend continued down, not continuing to follow. --Patient's atorvastatin was maximized, ASA added, and metoprolol to be added for blood pressure control. (4) Type 2 diabetes mellitus, with long-term current use of insulin: Status: Chronic Assessment and plan: Poor control historically with last A1c 10.6 on 06/08, admitted in DKA as above. Adjust outpatient medical therapy at discharge. 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 Her cirrhosis diagnosis is remote, per GI notes it looks like it was made via MRI prior to HCV treatment. Her current imaging and labs don't indicate cirrhosis (FIB-4 of 1.1). Her previous label may be an overdiagnosis, and she would probably benefit from liver elastography as an outpatient to clarify need for onging cirrhosis monitoring. She is on chronic NSAID therapy with celecoxib, which would be contraindicated in cirrhosis. Stopped this 06/16. (6) Opioid use disorder: Assessment and plan: Has been stable on methadone, but with illness she appeared oversedated after dosing. High dose pregabalin (above dosing range for diabetic neuropathy) also contributing. She had AUGUSTINE on admission that normalized, but methadone may have accumulated. On 06/16 cut pregabalin from 200mg TID to BID and methadone from 77mg to 60mg. She is more alert today. Subjective Subjective Patient reports: bowel movement; denies shortness of breath or fever Interval history since last seen: 24 hr: no events She is still nauseous, metoclopramide helps. She was able to drink and eat a small amount. She has more energy, up in the room. She would like the kraft out. Exam Narrative Exam Narrative: ill appearing female sitting up in bed, less withdrawn, sleepy appearing though awakes and oriented x3, heart RRR, lungs CTAB, abdomen soft, mild RUQ tenderness but without rebound or guarding, no masses, wounds c/d/i. extremities not tender, trace ankle edema. Objective Last Vital Signs Temp 36.6 C 06/17/24 07:30 Pulse 88 06/17/24 08:01 Resp 24 06/17/24 08:01 BP 141/91 H 06/17/24 08:01 Pulse Ox 100 06/17/24 08:01 Laboratory Results - last 24 hr 06/16/24 06/16/24 06/16/24 12:00 17:40 20:45 WBC RBC Hgb Hct MCV MCH MCHC RDW Plt Count MPV Immature Gran % Neutrophils % Lymphocytes % Monocytes % Eosinophils % Basophils % Nucleated RBC % Absolute Neutrophils Absolute Lymphocytes Absolute Monocytes Absolute Eosinophils Absolute Basophils VBG pH VBG pCO2 VBG pO2 VBG HCO3 VBG Total CO2 VBG O2 Saturation VBG Base Excess Sodium 135 L 136 Potassium 3.5 3.2 L Chloride 109 H 109 H Carbon Dioxide 17.5 L 18.9 L Anion Gap 8.5 8.1 BUN 10 9 Creatinine 0.9 0.8 Est GFR (CKD-EPI 2020) 80.34 92.54 Glucose 127 H 92 Calcium 8.8 8.5 Magnesium Urine Color [place] Urine Clarity Clear Urine pH 6.0 Ur Specific [place] 1.010 Urine Protein Negative Urine Ketones Negative Urine Blood Large H Urine Nitrite Negative Urine Bilirubin Negative Urine Urobilinogen 0.2 Ur Leukocyte Esterase Trace H Urine RBC 10-20 H Urine WBC 3-5 Ur Epithelial Cells Few Urine Crystals Negative Urine Bacteria Negative Urine Mucus Trace Urine Other Few Yeast Ur Culture Indicated? C&S Done As Ordered Urine Glucose 100 H 06/16/24 06/17/24 06/17/24 21:00 00:50 04:45 WBC 10.75 RBC 5.09 Hgb 12.4 D Hct 38.9 MCV 76 L MCH 24.4 L MCHC 31.9 L RDW 16.8 H Plt Count 173 MPV 11.0 Immature Gran % 1.9 Neutrophils % 49.7 Lymphocytes % 37.8 Monocytes % 8.8 Eosinophils % 1.1 Basophils % 0.7 Nucleated RBC % 0.0 Absolute Neutrophils 5.34 Absolute Lymphocytes 4.06 H Absolute Monocytes 0.95 H Absolute Eosinophils 0.12 Absolute Basophils 0.08 VBG pH 7.28 L 7.32 7.35 VBG pCO2 42 37 L 36 L VBG pO2 23 25 31 VBG HCO3 20 L 19 L 20 L VBG Total CO2 18 L 18 L 18 L VBG O2 Saturation 54 58 71 VBG Base Excess -7 L -7 L -6 L Sodium 136 138 139 Potassium 3.4 L 3.5 3.2 L Chloride 108 H 109 H 110 H Carbon Dioxide 21.1 20.1 L 20.7 L Anion Gap 6.9 8.9 8.3 BUN 8 7 6 L Creatinine 0.8 0.9 0.9 Est GFR (CKD-EPI 2020) 92.54 80.34 80.34 Glucose 118 H 212 H 110 H Calcium 8.8 8.9 8.8 Magnesium 2.0 Urine Color Urine Clarity Urine pH Ur Specific [place] Urine Protein Urine Ketones Urine Blood Urine Nitrite Urine Bilirubin Urine Urobilinogen Ur Leukocyte Esterase Urine RBC Urine WBC Ur Epithelial Cells Urine Crystals Urine Bacteria Urine Mucus Urine Other Ur Culture Indicated? Urine Glucose 06/17/24 06/17/24 05:35 08:55 WBC RBC Hgb Hct MCV MCH MCHC RDW Plt Count MPV Immature Gran % Neutrophils % Lymphocytes % Monocytes % Eosinophils % Basophils % Nucleated RBC % Absolute Neutrophils Absolute Lymphocytes Absolute Monocytes Absolute Eosinophils Absolute Basophils VBG pH 7.35 VBG pCO2 40 L VBG pO2 32 VBG HCO3 22 L VBG Total CO2 20 L VBG O2 Saturation 74 VBG Base Excess -4 L Sodium Cancelled 136 Potassium Cancelled 3.2 L Chloride Cancelled 107 Carbon Dioxide Cancelled 23.6 Anion Gap Cancelled 5.4 BUN Cancelled 5 L Creatinine Cancelled 0.8 Est GFR (CKD-EPI 2020) Cancelled 92.54 Glucose Cancelled 118 H Calcium Cancelled 8.7 Magnesium Urine Color Urine Clarity Urine pH Ur Specific [place] Urine Protein Urine Ketones Urine Blood Urine Nitrite Urine Bilirubin Urine Urobilinogen Ur Leukocyte Esterase Urine RBC Urine WBC Ur Epithelial Cells Urine Crystals Urine Bacteria Urine Mucus Urine Other Ur Culture Indicated? Urine Glucose Time Spent with Patient Time Spent with Patient: >50 minutes Time was spent: preparing to see the patient(eg.review tests), obtaining and/or reviewing separately otained hiistory, ordering medications,tests, procedures, referring, communicating with other health caretaker resort, indepentently interpreting results, counseling the patient and care coordination
[2024-06-17] MEDS: Insulin Aspart 300 UNITS/3 ML PEN 15 UNITS SC (14:12)
[2024-06-17 15:48] LABS: Anion Gap 6.8 mmol/L (3-11); BUN 5 mg/dL (7-18); CO2 21.2 mmol/L (21.0-32.0); CREATININE 0.8 mg/dL (0.55-1.02); Calcium 8.5 mg/dL (8.5-10.1); Chloride 106 mmol/L (98-107); Estimated GFR 92.54 (mL/min/1.73m2); Glucose 221 mg/dL (74-106); Potassium 3.7 mmol/L (3.5-5.1); Sodium 134 mmol/L (136-145)
[2024-06-17] MEDS: Insulin Aspart 300 UNITS/3 ML PEN 7 UNITS SC (17:15)
[2024-06-17 20:19] LABS: BUN 5 mg/dL (7-18); CREATININE 0.7 mg/dL (0.55-1.02); Calcium 8.5 mg/dL (8.5-10.1); Chloride 106 mmol/L (98-107); Estimated GFR 108.62 (mL/min/1.73m2); Glucose 163 mg/dL (74-106); Potassium 3.5 mmol/L (3.5-5.1); Sodium 136 mmol/L (136-145)
[2024-06-17] MEDS: cloNIDine 0.1 MG TAB 0.2 MG PO (20:38)
[2024-06-17] MEDS: Mirtazapine 15 MG TAB PO (20:39)
[2024-06-17] MEDS: Atorvastatin 40 MG TAB 80 MG PO (20:39)
[2024-06-17] MEDS: Methocarbamol 500 MG TAB 1000 MG PO (20:39)
[2024-06-18] VITALS (7 sets, daily range): BP systolic 110–130; BP diastolic 74–94; PULSE 68–88; RESP 10–18; TEMP 36.7; O2SAT 97
[2024-06-18] MEDS: Acetaminophen 500 MG TAB 1000 MG PO (02:47)
[2024-06-18] MEDS: Methocarbamol 500 MG TAB 1000 MG PO (05:42)
[2024-06-18] MEDS: Metoprolol 25 MG TAB PO ×2 (05:42→12:00)
[2024-06-18] MEDS: MEROPENEM 1 GM in Normal Saline 100 ML IVPB (05:43)
[2024-06-18 07:21] LABS: Anion Gap 4.2 mmol/L (3-11); BUN 4 mg/dL (7-18); CO2 26.8 mmol/L (21.0-32.0); CREATININE 0.8 mg/dL (0.55-1.02); Calcium 8.8 mg/dL (8.5-10.1); Chloride 107 mmol/L (98-107); Estimated GFR 92.54 (mL/min/1.73m2); Glucose 144 mg/dL (74-106); Potassium 3.5 mmol/L (3.5-5.1); Sodium 138 mmol/L (136-145)
[2024-06-18] MEDS: Pregabalin 100 MG CAP 200 MG PO (07:47)
[2024-06-18] MEDS: valACYclovir 500 MG TAB PO (07:47)
[2024-06-18] MEDS: Lurasidone 40 MG TAB 80 MG PO (07:48)
[2024-06-18] MEDS: Magnesium Oxide 400 MG TAB PO (07:49)
[2024-06-18] MEDS: Metoclopramide 10 MG TAB PO ×2 (07:49→11:26)
[2024-06-18] MEDS: Omeprazole 20 MG CAPCR 40 MG PO (07:49)
[2024-06-18] MEDS: Insulin Aspart 300 UNITS/3 ML PEN 7 UNITS SC ×2 (07:50→12:00)
[2024-06-18] MEDS: Insulin Glargine 300 UNITS/3 ML PEN 50 UNITS SC (07:50)
[2024-06-18] MEDS: Normal Saline Flush 10 ML SYR IVP (08:03)
[2024-06-18] MEDS: Ondansetron O.D.T. 4 MG TABEF 8 MG PO (08:13)
[2024-06-18] MEDS: Budesonide/Formoterol 160/4.5 6 GM 60 PUFF INH IH (08:32)
[2024-06-18] MEDS: Methadone Liquid 10 MG/ML 60 MG PO (08:43)
[2024-06-18] MEDS: metroNIDAZOLE 500 MG TAB PO (09:41)
[2024-06-18] MEDS: Enoxaparin 40 MG/0.4 ML SYR SC (09:43)
[2024-06-18] MEDS: Mylanta Suspension 30 ML CUP PO (09:48)
[2024-06-18] MEDS: Insulin Aspart 300 UNITS/3 ML PEN SC (11:59)
[2024-06-18] MEDS: oxyCODONE 5 mg/Acetaminophen 325 mg TAB 1 TAB PO (12:19)
--- NOTE | 2024-06-18 13:08 | DSE_ITS ---
Date of service: 06/18/24 Time of Service: 13:09 DS: Diagnosis Discharge Diagnosis (1) DKA (diabetic ketoacidosis): Status: Acute (2) Acute gallstone pancreatitis: (3) Elevated troponin level not due myocardial infarction: Status: Acute (4) Type 2 diabetes mellitus, with long-term current use of insulin: Status: Chronic (5) Fatty infiltration of liver: Status: Acute (6) Opioid use disorder: Discharge Plan Disposition Patient Disposition: Home Condition: Fair Discharge Details Reason For Visit: DKA, Gallbladder pancreatitis Admit Date/Time: 06/14/24 23:42 Admit Provider: Stephan Finn Attending Provider: Stephan Finn Primary Care Provider: Lorena Mann Hospital Course Hospital Course: 43 yo F with longstanding poorly controlled type 2 IDDM and OUD on methadone, recent admission for gallstone pancreatitis s/p cholecystectomy 06/12/24 who was discharged 06/13 and was readmitted 06/14 with confusion and abdominal pain and found to be in diabetic ketoacidosis. She was admitted to the ICU on insulin drip protocol. Her acidosis resolved over two days, though she was slow to start eating presumably due to her chronic gastroparesis. By 06/17 she was transitioned back to basal/bolus insulin. Her SLGT2 inhibitor was stopped due to the association with DKA even at lower glusose levels. Surgery was consulted about her abdominal pain. CT A/P was done and did not show an abscess or pancreatic necrosis. She was initially started on cefepime, but this was changed to meropenem for pancreatic penetration. Her lipase was normal. Her WBC was elevated at 15.5 but this normalized. She was discharged on levofloxacin and metronidazole due to PCN allergy. She had elevated troponins up to 275, then trending down. EKG did show anterior EKG changes, no STEMI. This was felt to be type 2 ACS. She was started on aspirin (with PPI for GI prophylaxis), high intensity statin, and metoprolol due to high blood pressure. She was tolerating metoprolol tartrate 25mg q6h and was discharged with succinate 100mg/day. Due to the acute coronary event, it was recommended she stop her stimulant and triptan medication. She may need further evaluation for coronary artery disease. She was sedated during her early admission and methadone was decreased to 60mg from her baseline 77mg and her pregabalin was reduced to 200mg BID from TID to be more consistent with dosing range for diabetic neuropathy. Her mental status improved. She did have RUQ pain since her surgery and was given #10 oxycodone 5mg/acetaminophen. She had a documented history of cirrhosis a/w MASLD and treated HCV but her CT and labs did not support advanced fibrosis (FIB-4 of 1.1 typically rules out advanced fibrosis). The cirrhosis diagnosis was made years ago by MRI per GI consult notes. This diagnosis could be reconsidered, and liver elastography would be useful to clarify. In the mean time, her FLORES-2 inhibitor was stopped as NSAIDs are contraindicated in cirrhotic patients. She had ongoing nausea related to gastroparesis and was continued on metoclopramide and ondansatron. She has some calluses and pressure/friction sores on her feet, and we discussed evaluation for diabetic shoes. Home Meds and New Rx's Prescriptions: New metronidazole 500 mg Tablet 500 mg PO Q8H 7 Days Qty: 21 0RF aspirin [Children's Aspirin] 81 mg Tablet,Chewable 81 mg PO DAILY Qty: 90 0RF atorvastatin 80 mg tablet 80 mg PO DAILY Qty: 30 0RF levofloxacin 500 mg tablet 500 mg PO DAILY Qty: 7 0RF metoprolol succinate 100 mg tablet extended release 24 hr 100 mg PO DAILY Qty: 30 0RF oxycodone-acetaminophen 5-325 mg tablet 1 tab PO Q8H PRNQty: 10 0RF Continued lorazepam 0.5 mg tablet 0.5 mg PO DAILY PRN albuterol sulfate 90 mcg/actuation HFA aerosol inhaler 1 - 2 puff Inhalation Q4-6H PRN Qty: 1 1RF Rx Instructions: DISPENSE ALBUTEROL INHALER BRAND COVERED BY INSURANCE metoclopramide HCl 10 mg tablet 10 mg PO TID PRN Rx Instructions: administer 30 minutes before meals ondansetron 8 mg tablet,disintegrating 8 mg PO BID PRN (Reason: nausea and vomiting) Qty: 60 11RF gabapentin 300 mg capsule 300 mg PO HS PRN (Reason: back pain) Qty: 60 0RF Gvoke HypoPen 2-Pack 1 mg/0.2 mL auto-injector 1 mg subcut ONCE Qty: 0.4 1RF Rx Instructions: HYPOGLYCEMIA; as a single dose; may repeat once after 15 minutes if no response methocarbamol 500 mg tablet 1,000 mg PO HS PRN (Reason: muscle spasm) Qty: 90 0RF Rx Instructions: Use lowest effective dose for shortest duration for muscle spasm ipratropium-albuterol 0.5 mg-3 mg(2.5 mg base)/3 mL solution for nebulization 3 ml inhalation QID PRN (Reason: wheezing) Qty: 180 1RF Rx Instructions: During asthma exacerbation, may use preventatively TID, titrating down to QID PRN as wheeze & SOB improve. fluticasone propion-salmeterol [Advair Diskus] 250-50 mcg/dose blister with device 1 inh inhalation BID Qty: 60 1RF Rx Instructions: Please use this during asthma exacerbations, wean off as shortness of breath & wheeze improve. alcohol swabs [Alcohol Pads] Pads, Medicated 1 pad Topical QID Qty: 400 3RF naloxone [Narcan] 4 mg/actuation spray,non-aerosol 4 mg intranasal Q2M PRN (Reason: opioid overdose) Qty: 2 0RF Rx Instructions: spray 1 dose into ONE nostril; alternate nostrils w each dose until help arrives acetaminophen 500 mg tablet 500 - 1,000 mg PO Q8H MDD 3000 mg PRN (Reason: fever or pain) Qty: 180 0RF Rx Instructions: 1 [place] [place] needle, diabetic [BD Ultra-Fine Yamini Pen Needle] 32 gauge x 5/32 needle See Rx Instructions .ROUTE .COMPLEX Qty: 100 0RF Dose Instruction: USE TO ADMINISTER INSULIN ONCE DAILY Rx Instructions: USE TO ADMINISTER INSULIN ONCE DAILY (DME) blood-glucose meter Misc See Rx Instructions .Route Qty: 1 0RF Rx Instructions: One Touch meter (DME) lancets Misc See Rx Instructions .ROUTE .MEDSUPPLY Qty: 400 3RF Rx Instructions: As directed to check blood glucose four times daily. On insulin. Dispense one touch ultra (DME) Dexcom G6 Transmitter Device See Rx Instructions .Route Qty: 3 3RF Rx Instructions: As directed insulin aspart U-100 [Novolog FlexPen U-100 Insulin] 100 unit/mL (3 mL) insulin pen 15 unit subcut AC Qty: 15 3RF Rx Instructions: 10-15 units sliding scale before meals insulin degludec [Tresiba FlexTouch U-100] 100 unit/mL (3 mL) insulin pen 140 unit subcut DAILY Rx Instructions: 03/05/24--decr by 10U per Dr Foster- valacyclovir 500 mg tablet 500 mg PO DAILY Qty: 90 3RF (DME) Blood Glucose Test Strip See Rx Instructions .MEDSUPPLY Qty: 400 3RF Rx Instructions: As directed to check blood glucose four times daily. On insulin. Dispense one touch ultra (DME) Dexcom G6 Sensor Device See Rx Instructions .ROUTE .COMPLEX Qty: 3 6RF Dose Instruction: USE DIRECTED Rx Instructions: USE DIRECTED magnesium oxide 400 mg (241.3 mg magnesium) tablet 400 mg PO BID Qty: 180 0RF omeprazole 40 mg capsule,delayed release(DR/EC) 40 mg PO DAILY Qty: 90 3RF nystatin 100,000 unit/gram powder 1 applic Topical BID PRN (Reason: fungal skin infection) Qty: 30 3RF Rx Instructions: Apply powder to affected area under R breast twice daily clonidine HCl 0.2 mg tablet 0.2 mg PO HS Patient Comments: TAKE 1 TABLET BY MOUTH EVERY NIGHT AT BEDTIME mirtazapine 15 mg tablet 15 mg PO HS Ajovy Autoinjector 225 mg/1.5 mL auto-injector 225 mg subcut QMONTH Botox 100 unit recon soln 300 unit IM ONCE Rx Instructions: divided among affected muscles hydroxyzine pamoate 50 mg capsule 50 mg PO BID PRN Patient Comments: TAKE ONE CAPSULE BY MOUTH TWICE A DAY lurasidone 80 mg tablet 80 mg PO DAILY Patient Comments: TAKE ONE TABLET BY MOUTH EVERY DAY WITH AT LEAST 350 CALORIES Changed methadone 10 mg/mL concentrate 60 mg PO DAILY Qty: 0 0RF Patient Comments: 77 mg - [facility] [place] pregabalin 200 mg capsule 200 mg PO BID Qty: 270 0RF Discontinued celecoxib 200 mg capsule See Rx Instructions .ROUTE .COMPLEX Qty: 60 5RF Dose Instruction: TAKE 1 CAPSULE BY MOUTH TWICE DAILY(FOR BACK AND LEG PAIN, DO NOT MIX WITH OTHER NSAIDS) Rx Instructions: TAKE 1 CAPSULE BY MOUTH TWICE DAILY(FOR BACK AND LEG PAIN, DO NOT MIX WITH OTHER NSAIDS) Jardiance 25 mg tablet 25 mg PO DAILY AM Qty: 90 3RF Rx Instructions: Administer once daily in the morning, with or without food atorvastatin 10 mg tablet 10 mg PO QHS Qty: 90 0RF sumatriptan succinate 100 mg tablet 100 mg PO ONCE MDD 200 mg PRN (Reason: migraine headache) Qty: 30 2RF Rx Instructions: A second dose can be taken if no response after 2 hours dextroamphetamine-amphetamine 20 mg tablet 20 mg PO TID PRN Patient Comments: TAKE ONE TABLET BY MOUTH THREE TIMES A DAY NEEDED Discharge Instructions Instructions: Diabetic Ketoacidosis (DC) Additional Instructions: You had diabetic ketoacidosis. Because of this you should stop the Jardiance. You are going to need to use your insulin more regularly to control your blood sugar so this doesn't happen again. We sent one more week of antibiotics for a possible infection in your pacreas and gallbladder area. You should see the surgery clinic at [facility] in 1 week. We recommend a lower dose of daily methadone, as you were too sleepy on the 77mg. We supplied you with a few days of oxycodone for the acute surgical pain. You can follow up on this with [facility]. We also recommend a lower dose of pregabalin, as your dose is above the recommended range for neuropathy. You had some heart damage associated with your illness. Because of this, we recommend you stop the sumitriptan and the amphetamine (Adderall) as these put more stress on the heart. We sent a high dose of atorvastatin and a baby aspirin to protect the heart. You should consider seeing cardiology as an outpatient, but you can discuss this with your primary care. You should see your primary care in the next week or two. Because of your cirrhosis of the liver, you should not take celecoxib. Your liver didn't look bad here, and you may want additional testing to see if you truly have cirrhosis. Referrals: Lorena Mann NP [Primary Care Provider] - 06/23/24 5:30 pm (Please arrive 15 minutes prior to appointment. If unable to make appointment, please call ahead of time to reschedule. ) Activity:: Activity as Tolerated Equipment/Supplies:: No Equipment Needed Diet:: Carb Counting Discharge Orders Discharge Orders: Discharge Order (Routine); Ordered 06/18/24 Ordered By: Dontrell Sánchez Discharge Data Discharge Date/Time-TO BE ENTERED AT DEPARTURE: 06/18/24 13:30 DS: Summary Time Spent with Patient providing and/or coordinating discharge services: Greater than 30 minutes Status at Discharge Functional status at discharge: independent ambulation Overall status at discharge: patient is back to baseline Mental Status: mental status grossly normal Speech and Movement: speech and movement normal Mood: congruent mood Affect: normal affect Quality:SDOH Health Related Social Needs: No Data to Display Exam Narrative Exam Narrative: ill appearing female sitting up in bed, less withdrawn, more alert, walking around the unit. Oriented x3, heart RRR, lungs CTAB, abdomen soft, mild RUQ tenderness but without rebound or guarding, no masses, wounds c/d/i. extremities not tender, trace ankle edema. Psych Mental Status: mental status grossly normal Speech and Movement: speech and movement normal Mood: congruent mood Affect: normal affect DS: Data Vitals/I&O Vitals and I&O: Vital Signs Temperature 36.7 C 06/18/24 09:45 Temperature Source Temporal Artery Scan 06/18/24 09:45 Pulse 83 06/18/24 12:02 Pulse 76 06/18/24 06:00 Respiratory Rate 16 06/18/24 09:45 Respiratory Effort Incrsd Work of Breathing 06/15/24 01:00 Respiratory Depth Normal 06/15/24 01:00 Respiratory Pattern Tachypnea 06/15/24 01:00 Blood Pressure 121/78 06/18/24 12:02 Blood Pressure Mean 87 06/18/24 12:02 Blood Pressure Position Supine 06/15/24 01:00 Pulse Oximetry 97 06/18/24 12:02 Oxygen Delivery Method Room Air 06/18/24 09:45 Oxygen Flow Rate 0 06/18/24 09:45 Pain Level 8 06/18/24 12:19 Intake & Output 06/17/24 06/18/24 06/18/24 23:59 11:59 23:59 Intake Total 1727.083 / 4474.503 550 / 550 Output Total 1250 / 3600 700 / 700 Balance 477.083 / 874.503 -150 / -150 Intake: IV 867.083 / 3014.503 130 / 130 Oral 860 / 1460 420 / 420 Output: Urine 1250 / 3600 700 / 700 Other: Urine Color Yellow Yellow Urine Appearance Clear Clear Urine Odor Normal Normal Stool Size Small Stool Characteristics Hard Emesis Description Bile Voiding Methods Bedside Commode Bedside Commode Data Completed and Pending Labs on day of discharge: Labs from last 24 hours 06/18/24 06/17/24 06/17/24 05:35 20:00 14:45 Sodium 138 136 134 L Potassium 3.5 3.5 3.7 Chloride 107 106 106 Carbon Dioxide 26.8 23.0 21.2 Anion Gap 4.2 7.0 6.8 BUN 4 L 5 L 5 L Creatinine 0.8 0.7 0.8 Est GFR (CKD-EPI 2020) 92.54 108.62 92.54 Glucose 144 H 163 H 221 H Calcium 8.8 8.5 8.5 Preliminary micro results at discharge 06/14/24 20:38 Blood Culture - Preliminary Blood NO GROWTH 72 HOURS 06/14/24 19:12 Blood Culture - Preliminary Blood NO GROWTH 72 HOURS PFSH All Active Problems (Updated 06/16/24 @ 14:30 by Dontrell Sánchez) Fatty infiltration of liver (Acute) Metabolic acidosis (Acute) Elevated troponin level not due myocardial infarction (Acute) Acute postoperative abdominal pain (Acute) Diabetic ketoacidosis (Acute) DKA (diabetic ketoacidosis) (Acute) Corneal abrasion (Acute) Obstructive sleep apnea of adult (Acute) [facility] 12/23/23 Muscle spasm of left lower extremity (Acute) Muscle spasm of back (Acute) Diabetic cataract of right eye (Acute) Ulcer of right foot limited to breakdown of skin (Acute 04/16/23) [facility] Pod[facility] Ulcer of left foot, limited to breakdown of skin (Acute 04/16/23) [facility] Iron deficiency (Acute) 03/2023 iron studies indicating deficiency (NOT anemic) Migraine (Chronic) [facility] Chronic constipation (Chronic) [facility] Type 2 diabetes mellitus, with long-term current use of insulin (Chronic) With neuropathy & retinopathy (left, mild) Obesity (Chronic) Cirrhosis of liver (Chronic) [facility] Asthma (Chronic) Tobacco use disorder (Chronic) Started smoking age 9 Poorly controlled type 2 diabetes mellitus (Chronic 03/23/18) Polypharmacy (Chronic 12/14/15) Mild nonproliferative diabetic retinopathy associated with type 2 diabetes mellitus (Chronic 01/22/16) Mental health disorder (Chronic) Pt reports being diagnosed with bipolar disorder, disassociative disorder, anxiety, & multiple personality disorder Hypomagnesemia (Chronic 09/30/16) Hyperlipidemia (Chronic 09/30/16) 10-year ASCVD risk = unable to calculate due to not being age 40+ however dx T2DM, so Rx for statin 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 Jimenez [facility] 2023: [facility] GI Depressive disorder (Chronic 10/31/14) ADMISSION SUICIDAL THOUGHTS 06/13/14 OD ATTEMPTS IN PAST Chronic nausea (Chronic) EGD 04/16/16 Dr. 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) Medical History Acute gallstone pancreatitis Acute pancreatitis Opioid use disorder MAT with methadone Chronic fatigue (07/19/15) Osteomyelitis Dyspareunia in female (07/09/17) Punctate keratitis of both eyes Ulcer of foot due to secondary diabetes Umbilical hernia (03/11/18) 03/17/2018: [facility] Premature surgical menopause JAD/BSO in late 20s, no HRT Hepatitis C 02/14/2016 labwork: undetectable RNA level Surgical History Status post total hysterectomy and bilateral salpingo-oophorectomy (~2006) noncancerous reasons Status post left foot surgery (10/2022) Left fourth metatarsal head excision for chronic ulcer, osteomyelitis ([facility]/Tamia Vidales DPM) Status post section (~2003) EGD (04/16/16) Dr. Ferrer Family History Mother , 46yo due to kidney & liver failure due to alcohol Substance use disorder Alcohol use disorder Father , 62yo from ALS Substance use disorder Alcohol use disorder ALS (amyotrophic lateral sclerosis) Grandmother Colon cancer Paternal Paternal Uncle Cardiac arrest Substance use disorder Alcohol and Pain Medication Abuse Social History Smoking/Tobacco Use Status: Current every day Tobacco Type: cigarettes Smoking packs per day: 1 Smoking cigarettes per day: 20.0 Tobacco: How many years used: 33 Quit status: considering quitting Smoking risk assessment performed?: Yes Alcohol Intake: never Drug use: Occasionally Substance use type: former substance user and marijuana Details: Pt. 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 Pets and animals: Yes (1 dog, 4 cats) Pets and animals: cat(s) and dog(s) Sexually active: Yes Do you think of yourself as: straight/heterosexual Current gender identity: female Other: 09/2022: pt reports she is engaged What is your relationship status?: How often do you talk on the phone with friends or family?: three or more times per week How often do you get together with friends or relatives?: once per week How often do you attend samaritan or gnosticism services?: decline to answer Do you belong to any clubs or organized social groups?: no Panel score (0-1 are the most socially isolated patients): 2 What type of physical activity do you participate in: none Duration: decline to answer Frequency: decline to answer Seatbelt use: always Helmet use: No (No reason to wear one) Drive intox or ride w/intox dray 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 Time Spent with Patient Time Spent with Patient: 45-69 minutes Time was spent: preparing to see the patient(eg.review tests), obtaining and/or reviewing separately otained hiistory, ordering medications,tests, procedures, referring, communicating with other health manager critical care unit, indepentently interpreting results, counseling the patient and care coordination
--- NOTE | 2024-06-18 16:41 | PDOC.CMDIS ---
Date of service: 06/18/24 Time of Service: 16:41 Care Management Discharge Plan Reason for Hospitalization: DKA, Gallbladder SDOH Health Related Social Needs: No Data to Display
== END 2024-06-18 13:30 | disposition home or self-care (01) | DRG 637 ==
LOC: ER 06-15 00:08 → ICU 06-15 00:57
PROVIDERS: Family Medicine; Admitting Provider Family Medicine; Emergency Provider Emergency Medicine; PCP Nurse Practitioner Adult Health; Visit Provider Family Medicine
DX: E11.10 Type 2 diabetes mellitus with ketoacidosis without coma (principal); K85.10 Biliary acute pancreatitis without necrosis or infection; F11.20 Opioid dependence, uncomplicated; B18.2 Chronic viral hepatitis C; E11.40 Type 2 diabetes mellitus with diabetic neuropathy, unspecified; D72.829 Elevated white blood cell count, unspecified; R74.8 Abnormal levels of other serum enzymes; G47.33 Obstructive sleep apnea (adult) (pediatric); K59.09 Other constipation; J45.909 Unspecified asthma, uncomplicated; F17.210 Nicotine dependence, cigarettes, uncomplicated; Z79.899 Other long term (current) drug therapy; E66.9 Obesity, unspecified; G43.909 Migraine, unspecified, not intractable, without status migrainosus; E83.42 Hypomagnesemia; E78.5 Hyperlipidemia, unspecified; E11.3292 Type 2 diabetes mellitus with mild nonproliferative diabetic retinopathy without macular edema, left eye; F32.A Depression, unspecified; E11.43 Type 2 diabetes mellitus with diabetic autonomic (poly)neuropathy; K31.84 Gastroparesis; F19.91 Other psychoactive substance use, unspecified, in remission; F12.90 Cannabis use, unspecified, uncomplicated; K76.0 Fatty (change of) liver, not elsewhere classified; Z68.39 Body mass index [BMI] 39.0-39.9, adult
CPT/HCPCS: 00123; 36410; 36415; 36416; 80048; 80053; 80076; 80307; 82805; 82962; 83690; 85027; 87040; 93005; 94640; 96361; 96365; 99291; J1650; 70450; 71045; 74177; 81003; 81015; 82140; 83605; 83735; 84100; 84443; 84484; 85025; 85610; 87086; 93010; 94664; 99223; 99233; 99239; J0692; J1815; J2185; J2543; J3480; J3490

== ENCOUNTER 2024-06-28 14:04 | Outpatient (CLI) | payer OTHER, SELFPAY ==
[2024-06-28 12:06] LABS: Abs Immature Grans 0.04 10^3/uL (0.0-0.06); Absolute Basophil Count 0.05 10^3/uL (0.0-0.2); Absolute Eosinophil Count 0.15 10^3/uL (0.0-0.7); Absolute Lymphocyte Count 2.42 10^3/uL (1.2-3.4); Absolute Monocyte Count 0.65 10^3/uL (0.1-0.8); Absolute Neutrophil Count 5.87 10^3/uL (1.2-6.7); Basophils % 0.5 %; Eosinophils % 1.6 %; HCT 36.8 % (36.0-46.0); HGB 11.2 g/dL (11.2-15.7); Immature Grans % 0.4 %; Lymphocytes % 26.4 %; MCH 25.3 pg (27.0-33.0); MCHC 30.4 % (32.0-36.0); MCV 83 fL (80-95); MPV 11.1 fL (8.0-11.0); Monocytes % 7.1 %; Platelet Count 246 10^3/uL (130-400); RBC 4.42 10^6/uL (3.93-5.22); RDW 18.2 % (11.7-14.6); RDW-SD 52.8 fL; WBC 9.18 10^3/uL (4.4-10.8)
[2024-06-28 12:26] LABS: Hemoglobin A1C 9.2 % (<5.7)
[2024-06-28 12:32] LABS: Microalb ug/mg Crea 11.7 ug/mg Cr
[2024-06-28 12:39] LABS: ALT 36 U/L (14-59); AST 53 U/L (15-37); Albumin 2.7 g/dL (3.4-5.0); Alkaline Phosphatase 182 U/L (46-116); Anion Gap 6.8 mmol/L (3-11); BUN 11 mg/dL (7-18); Bilirubin, Total 0.25 mg/dL (0.2-1.0); CO2 31.2 mmol/L (21.0-32.0); CREATININE 0.8 mg/dL (0.55-1.02); Calcium 9.2 mg/dL (8.5-10.1); Chloride 102 mmol/L (98-107); Cholesterol 182 mg/dL (<200); Estimated GFR 92.54 (mL/min/1.73m2); Glucose 281 mg/dL (74-106); HDL Cholesterol 37 mg/dL (40-60); Magnesium 1.7 mg/dL (1.8-2.4); Potassium 4.7 mmol/L (3.5-5.1); Sodium 140 mmol/L (136-145); TSH (W/Ref FT4) 4.02 uIU/mL (0.36-3.74); Total Protein 6.6 g/dL (6.4-8.2); Triglyceride 459 mg/dL (<150)
[2024-06-28 13:00] LABS: C-Reactive Protein 1.97 mg/dL (<or=0.5)
[2024-06-28 13:15] LABS: LDL CHOLESTEROL 74 mg/dL (<100)
== END 2024-06-28 14:05 | disposition home or self-care (01) ==
LOC: LBO 14:04
PROVIDERS: PCP Nurse Practitioner Adult Health; Visit Provider Nurse Practitioner Adult Health
DX: E11.42 Type 2 diabetes mellitus with diabetic polyneuropathy (principal); E11.65 Type 2 diabetes mellitus with hyperglycemia; R05.1 Acute cough; R09.81 Nasal congestion; R11.0 Nausea; K31.84 Gastroparesis; E11.10 Type 2 diabetes mellitus with ketoacidosis without coma; K85.10 Biliary acute pancreatitis without necrosis or infection
CPT/HCPCS: 36415; 80053; 80061; 83721; 82043; 82570; 83036; 83735; 84439; 84443; 85025; 86140

== ENCOUNTER 2024-06-29 19:46 | Emergency (ER) | payer OTHER, SELFPAY ==
[2024-06-29 19:48] VITALS: BP 176/97; PULSE 68; RESP 20; TEMP 36; O2SAT 92
--- NOTE | 2024-06-29 20:00 | W.ED.GENAD ---
Discharge Plan Disposition Patient Disposition: Home Condition: Stable Discharge Details Clinical Impression: Diabetic foot ulcer Primary Care Provider: Lorena Mann ED Provider: Hussain Espinal Home Meds and New Rx's Prescriptions: New doxycycline hyclate 100 mg tablet 100 mg PO BID Qty: 14 0RF ketorolac 10 mg tablet 10 mg PO Q8H PRN (Reason: pain) Qty: 30 0RF Rx Instructions: maximum total duration of 5 days from all oral, intranasal, or parenteral formulations Continued lorazepam 0.5 mg tablet 0.5 mg PO DAILY PRN albuterol sulfate 90 mcg/actuation HFA aerosol inhaler 1 - 2 puff Inhalation Q4-6H PRN Qty: 1 1RF Rx Instructions: DISPENSE ALBUTEROL INHALER BRAND COVERED BY INSURANCE metoclopramide HCl 10 mg tablet 10 mg PO TID PRN Rx Instructions: administer 30 minutes before meals ondansetron 8 mg tablet,disintegrating 8 mg PO BID PRN (Reason: nausea and vomiting) Qty: 60 11RF gabapentin 300 mg capsule 300 mg PO HS PRN (Reason: back pain) Qty: 60 0RF Gvoke HypoPen 2-Pack 1 mg/0.2 mL auto-injector 1 mg subcut ONCE Qty: 0.4 1RF Rx Instructions: HYPOGLYCEMIA; as a single dose; may repeat once after 15 minutes if no response methocarbamol 500 mg tablet 1,000 mg PO HS PRN (Reason: muscle spasm) Qty: 90 0RF Rx Instructions: Use lowest effective dose for shortest duration for muscle spasm ipratropium-albuterol 0.5 mg-3 mg(2.5 mg base)/3 mL solution for nebulization 3 ml inhalation QID PRN (Reason: wheezing) Qty: 180 1RF Rx Instructions: During asthma exacerbation, may use preventatively TID, titrating down to QID PRN as wheeze & SOB improve. fluticasone propion-salmeterol [Advair Diskus] 250-50 mcg/dose blister with device 1 inh inhalation BID Qty: 60 1RF Rx Instructions: Please use this during asthma exacerbations, wean off as shortness of breath & wheeze improve. atorvastatin 80 mg tablet 80 mg PO DAILY Qty: 90 3RF (DME) Dexcom G6 Transmitter Device See Rx Instructions .Route Qty: 3 3RF Rx Instructions: As directed (DME) Dexcom G6 Sensor Device See Rx Instructions .ROUTE .COMPLEX Qty: 3 6RF Dose Instruction: USE DIRECTED Rx Instructions: USE DIRECTED dextroamphetamine-amphetamine [Adderall] 20 mg tablet 20 mg PO TID Rx Instructions: administer doses at least 4-6 hours apart methadone [Methadone Intensol] 10 mg/mL concentrate 77 mg PO DAILY pregabalin 200 mg capsule 200 mg PO TID alcohol swabs [Alcohol Pads] Pads, Medicated 1 pad Topical QID Qty: 400 3RF naloxone [Narcan] 4 mg/actuation spray,non-aerosol 4 mg intranasal Q2M PRN (Reason: opioid overdose) Qty: 2 0RF Rx Instructions: spray 1 dose into ONE nostril; alternate nostrils w each dose until help arrives acetaminophen 500 mg tablet 500 - 1,000 mg PO Q8H MDD 3000 mg PRN (Reason: fever or pain) Qty: 180 0RF Rx Instructions: 1 month supply (DME) pen needle, diabetic [BD Ultra-Fine Yamini Pen Needle] 32 gauge x 5/32 needle See Rx Instructions .ROUTE .COMPLEX Qty: 100 0RF Dose Instruction: USE TO ADMINISTER INSULIN ONCE DAILY Rx Instructions: USE TO ADMINISTER INSULIN ONCE DAILY (DME) blood-glucose meter Misc See Rx Instructions .Route Qty: 1 0RF Rx Instructions: One Touch meter (DME) lancets Misc See Rx Instructions .ROUTE .MEDSUPPLY Qty: 400 3RF Rx Instructions: As directed to check blood glucose four times daily. On insulin. Dispense one touch ultra insulin aspart U-100 [Novolog FlexPen U-100 Insulin] 100 unit/mL (3 mL) insulin pen 15 unit subcut AC Qty: 15 3RF Rx Instructions: 10-15 units sliding scale before meals insulin degludec [Tresiba FlexTouch U-100] 100 unit/mL (3 mL) insulin pen 140 unit subcut DAILY Rx Instructions: 03/05/24--decr by 10U per Dr Foster- valacyclovir 500 mg tablet 500 mg PO DAILY Qty: 90 3RF (DME) Blood Glucose Test Strip See Rx Instructions .MEDSUPPLY Qty: 400 3RF Rx Instructions: As directed to check blood glucose four times daily. On insulin. Dispense one touch ultra magnesium oxide 400 mg (241.3 mg magnesium) tablet 400 mg PO BID Qty: 180 0RF omeprazole 40 mg capsule,delayed release(DR/EC) 40 mg PO DAILY Qty: 90 3RF nystatin 100,000 unit/gram powder 1 applic Topical BID PRN (Reason: fungal skin infection) Qty: 30 3RF Rx Instructions: Apply powder to affected area under R breast twice daily clonidine HCl 0.2 mg tablet 0.2 mg PO HS Patient Comments: TAKE 1 TABLET BY MOUTH EVERY NIGHT AT BEDTIME mirtazapine 15 mg tablet 15 mg PO HS Ajovy Autoinjector 225 mg/1.5 mL auto-injector 225 mg subcut QMONTH Botox 100 unit recon soln 300 unit IM ONCE Rx Instructions: divided among affected muscles levofloxacin 500 mg tablet 500 mg PO DAILY Qty: 7 0RF metoprolol succinate 100 mg tablet extended release 24 hr 100 mg PO DAILY Qty: 30 0RF hydroxyzine pamoate 50 mg capsule 50 mg PO BID PRN Patient Comments: TAKE ONE CAPSULE BY MOUTH TWICE A DAY lurasidone 80 mg tablet 80 mg PO DAILY Patient Comments: TAKE ONE TABLET BY MOUTH EVERY DAY WITH AT LEAST 350 CALORIES Discharge Instructions Additional Instructions: Keep the wound covered with moist dressings especially when you have socks or shoes on. Follow-up with your primary care provider especially if you are not improving within 1 to 2 weeks If you feel more ill or have new symptoms such as high fevers return to the emergency department for reevaluation HPI General Mode of arrival: ambulatory. Date/Time Provider Initiated Documentation: 06/29/24 19:48. Limitations to Documentation: no limitations. Information obtained by: patient. History of Present Illness 43 year old F presents to the emergency department with the chief complaint of anxiety/panic attacks, described as moderate, Patient started experiencing this day(s) (3) and it has been intermittent. No relieving factors improve symptom(s), No exacerbating factors reported . Patient notes other (foot ulcer); denies chest pain, fever/chills and shortness of breath. Patient did receive the following treatments prior to arrival, none Related Data Home Medications ?Medication ?Instructions ?Recorded ?Confirmed acetaminophen 500 mg tablet 500 - 1,000 mg (1 - 2 x 500 mg) PO 09/24/19 06/29/24 Q8H PRN fever or pain #180 tab-caps alcohol swabs (Alcohol Pads) 1 pad topical QID #400 ea 10/25/22 06/29/24 lorazepam 0.5 mg tablet 0.5 mg PO DAILY PRN 03/13/23 06/29/24 pen needle, diabetic 32 gauge x #100 ea 06/30/23 06/29/24 (BD Ultra-Fine Yamini Pen Needle) blood-glucose meter #1 ea 08/28/23 06/29/24 lancets #400 ea 08/28/23 06/29/24 clonidine HCl 0.2 mg tablet 0.2 mg PO HS 11/21/23 06/29/24 insulin aspart U-100 100 unit/mL 15 unit (0.15 mL) subcut AC #15 mL 01/05/24 06/29/24 (3 mL) subcutaneous pen (Novolog FlexPen U-100 Insulin aspart) naloxone 4 mg/actuation nasal 4 mg intranasal Q2M PRN opioid 02/13/24 06/29/24 spray (Narcan) overdose #2 ea insulin degludec 100 unit/mL (3 140 unit subcut DAILY 03/05/24 06/29/24 mL) subcutaneous pen (Tresiba FlexTouch U-100 insulin) 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 04/12/24 06/29/24 #90 tab-caps blood sugar diagnostic (Blood #400 ea 04/26/24 06/29/24 Glucose Test strips) magnesium oxide 400 mg (241.3 mg 400 mg PO BID #180 tabs 04/26/24 06/29/24 magnesium) tablet mirtazapine 15 mg tablet 15 mg PO HS 05/03/24 06/29/24 omeprazole 40 mg capsule,delayed 40 mg PO DAILY #90 caps 05/20/24 06/29/24 release nystatin 100,000 unit/gram topical 1 applic topical BID PRN fungal 05/25/24 06/29/24 powder skin infection #30 grams albuterol sulfate 90 mcg/actuation 1 - 2 puff inhalation Q4-6H PRN ##1 05/31/24 06/29/24 aerosol inhaler fluticasone 250 mcg-salmeterol 50 1 inh inhalation BID #60 ea 05/31/24 06/29/24 mcg/dose blistr powdr for inhalation (Advair Diskus) gabapentin 300 mg capsule 300 mg PO HS PRN back pain #60 caps 05/31/24 06/29/24 glucagon 1 mg/0.2 mL subcutaneous 1 mg (0.2 mL) subcut ONCE #0.4 mL 05/31/24 06/29/24 auto-injector (Randal Espinozaen 2-Pack) ipratropium 0.5 mg-albuterol 3 mg 3 ml inhalation QID PRN wheezing 05/31/24 06/29/24 (2.5 mg base)/3 mL nebulization #180 mL soln methocarbamol 500 mg tablet 1,000 mg (2 x 500 mg) PO HS PRN 05/31/24 06/29/24 muscle spasm #90 tabs metoclopramide HCl 10 mg tablet 10 mg PO TID PRN 05/31/24 06/29/24 ondansetron 8 mg disintegrating 8 mg PO BID PRN nausea and 05/31/24 06/29/24 tablet vomiting #60 tabs fremanezumab-vfrm 225 mg/1.5 mL 225 mg subcut QMONTH 06/07/24 06/29/24 subcutaneous auto-injector (Pbovy) onabotulinumtoxinA 100 unit 300 unit IM ONCE 06/07/24 06/29/24 solution for injection (Botox) hydroxyzine pamoate 50 mg capsule 50 mg PO BID PRN 06/08/24 06/29/24 lurasidone 80 mg tablet 80 mg PO DAILY 06/08/24 06/29/24 levofloxacin 500 mg tablet 500 mg PO DAILY #7 tabs 06/18/24 06/29/24 metoprolol succinate 100 mg 100 mg PO DAILY #30 tabs 06/18/24 06/29/24 tablet,extended release 24 hr atorvastatin 80 mg tablet 80 mg PO DAILY #90 tabs 06/23/24 06/29/24 blood-glucose sensor (FashFolio G6 #3 ea 06/23/24 06/29/24 Sensor device) blood-glucose transmitter (Dexcom #3 ea 06/23/24 06/29/24 G6 Transmitter device) dextroamphetamine-amphetamine 20 20 mg PO TID 06/23/24 06/29/24 mg tablet (Adderall) methadone 10 mg/mL oral 77 mg PO DAILY 06/23/24 06/29/24 concentrate (Methadone Intensol) pregabalin 200 mg capsule 200 mg PO TID 06/23/24 06/29/24 doxycycline hyclate 100 mg tablet 100 mg PO BID #14 tabs 06/29/24 ketorolac 10 mg tablet 10 mg PO Q8H PRN pain #30 tabs 06/29/24 Previous Rx's ?Medication ?Instructions ?Recorded acetaminophen 500 mg tablet 500 - 1,000 mg (1 - 2 x 500 mg) PO 09/24/19 Q8H PRN fever or pain #180 tab-caps alcohol swabs (Alcohol Pads) 1 pad topical QID #400 ea 10/25/22 pen needle, diabetic 32 gauge x #100 ea 06/30/23 (BD Ultra-Fine Yamini Pen Needle) blood-glucose meter #1 ea 08/28/23 lancets #400 ea 08/28/23 insulin aspart U-100 100 unit/mL 15 unit (0.15 mL) subcut AC #15 mL 01/05/24 (3 mL) subcutaneous pen (Novolog FlexPen U-100 Insulin aspart) naloxone 4 mg/actuation nasal 4 mg intranasal Q2M PRN opioid 02/13/24 spray (Narcan) overdose #2 ea 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 04/12/24 #90 tab-caps blood sugar diagnostic (Blood #400 ea 04/26/24 Glucose Test strips) magnesium oxide 400 mg (241.3 mg 400 mg PO BID #180 tabs 04/26/24 magnesium) tablet omeprazole 40 mg capsule,delayed 40 mg PO DAILY #90 caps 05/20/24 release nystatin 100,000 unit/gram topical 1 applic topical BID PRN fungal 05/25/24 powder skin infection #30 grams albuterol sulfate 90 mcg/actuation 1 - 2 puff inhalation Q4-6H PRN ##1 05/31/24 aerosol inhaler fluticasone 250 mcg-salmeterol 50 1 inh inhalation BID #60 ea 05/31/24 mcg/dose blistr powdr for inhalation (Advair Diskus) gabapentin 300 mg capsule 300 mg PO HS PRN back pain #60 caps 05/31/24 glucagon 1 mg/0.2 mL subcutaneous 1 mg (0.2 mL) subcut ONCE #0.4 mL 05/31/24 auto-injector (Gvoke HypoPen 2-Pack) ipratropium 0.5 mg-albuterol 3 mg 3 ml inhalation QID PRN wheezing 05/31/24 (2.5 mg base)/3 mL nebulization #180 mL soln methocarbamol 500 mg tablet 1,000 mg (2 x 500 mg) PO HS PRN 05/31/24 muscle spasm #90 tabs ondansetron 8 mg disintegrating 8 mg PO BID PRN nausea and 05/31/24 tablet vomiting #60 tabs levofloxacin 500 mg tablet 500 mg PO DAILY #7 tabs 06/18/24 metoprolol succinate 100 mg 100 mg PO DAILY #30 tabs 06/18/24 tablet,extended release 24 hr atorvastatin 80 mg tablet 80 mg PO DAILY #90 tabs 06/23/24 blood-glucose sensor (Dexcom G6 #3 ea 06/23/24 Sensor device) blood-glucose transmitter (Dexcom #3 ea 06/23/24 G6 Transmitter device) doxycycline hyclate 100 mg tablet 100 mg PO BID #14 tabs 06/29/24 ketorolac 10 mg tablet 10 mg PO Q8H PRN pain #30 tabs 06/29/24 Allergies Allergy/AdvReac Type Severity Reaction Status Date / Time Penicillins Allergy Severe lip and Verified 06/29/24 19:53 facial swelling lamotrigine (From Lamictal) Allergy Unknown Skin Rash Verified 06/29/24 19:53 clindamycin AdvReac Severe Nausea & Verified 06/29/24 19:53 vomiting aspirin AdvReac Intermediate nausea/pain Verified 06/29/24 19:53 General Stated Complaint: RashLesion CARLOS: 3 Review of Systems All systems reviewed & are unremarkable except as noted in HPI and below Constitutional Constitutional: Denies chills, Denies fever(s) and Denies weakness Cardiovascular Cardiovascular: Denies chest pain and Denies dyspnea Respiratory Respiratory: Denies cough and Denies dyspnea Gastrointestinal Gastrointestinal: Denies abdominal pain, Denies nausea and Denies vomiting Integumentary/Breasts Skin/Breast: Reports non-healing lesions Neurologic Neurologic: Denies weakness Exam Const General: no acute distress Orientation: alert [facility] Head: normal to inspection Ears: external ears normal General nose exam: external nose normal Mouth: moist mucous membranes Eyes General: appearance normal, both eyes and all related structures Neck Neck: normal visual inspection Resp Effort & Inspection: normal respiratory effort and able to speak in complete sentences Cardio Rate: regular rate Skin General skin exam: no ecchymosis and no purpura Neuro General: patient alert and patient oriented x3 Extrem General: normal to inspection Psych Mental Status: mental status grossly normal Course Vital Signs Vital signs: Vital Signs Temperature 36.0 C L 06/29/24 19:48 Pulse 68 06/29/24 19:48 Respiratory Rate 20 06/29/24 19:48 Blood Pressure 176/97 H 06/29/24 19:48 Pulse Oximetry 92 06/29/24 19:48 Temperature 36.0 C L 06/29/24 19:48 Pulse 68 06/29/24 19:48 Respiratory Rate 20 06/29/24 19:48 Respiratory Effort Normal 06/29/24 19:52 Blood Pressure 176/97 H 06/29/24 19:48 Blood Pressure Position Sitting 06/29/24 19:48 Pulse Oximetry 92 06/29/24 19:48 Oxygen Delivery Method Room Air 06/29/24 19:48 Oxygen Flow Rate 0 06/29/24 19:48 Medical Decision Making 43-year-old female with a history of insulin-dependent diabetes hyperlipidemia, recently admitted twice once for gallstone pancreatitis and then subsequently after developed DKA, comes in with several days of intermittent panic attacks and a wound on the dorsal surface of her mid left foot that she feels is worsening. She denies any fevers, chills, chest pain, difficulty breathing. She has no abdominal pain or vomiting. She does appear mildly anxious but is alert and oriented speaking clearly and is calm and cooperative. She has no abdominal tenderness, clear lung sounds, she has a 1 cm circular ulcer on the left superior portion of her dorsal midfoot. There is 1 mm surrounding erythema, no fluctuance or severe pain. She has intact sensation and cap refill. Suspect diabetic foot foot wound but does not appear overly infected, do not feel labs are imaging indicated, there is no tunneling to suggest osteo. I will cover with doxycycline as she has penicillin and clindamycin allergy. I will also provide her a dose of Toradol as she says that she gets bad peripheral neuropathy and this sometimes helps. I will also give her dose of Ativan for anxiety and reassess. Patient feels much better requesting discharge, stable vital signs and exam. Advised to follow-up with her PCP and return precautions given Differential Diagnosis Differential Diagnosis: chronic wound, diabetic foot infection, anxiety/panic attacks Medical Records Medical records reviewed: Yes I reviewed the patient's medical records. Quality:[facility] Health Related Social Needs: No Data to Display [facility] All Active Problems (Updated 06/29/24 @ 20:09 by Hussain Espinal MD) Diabetic foot ulcer (Acute) Fatty infiltration of liver (Acute) Elevated troponin level not due myocardial infarction (Acute ~05/2024) ?type 2 ACS Acute postoperative abdominal pain (Acute) Diabetic ketoacidosis (Acute ~05/2024) Corneal abrasion (Acute) Obstructive sleep apnea of adult (Acute) [facility] 12/23/23 Muscle spasm of left lower extremity (Acute) Muscle spasm of back (Acute) Diabetic cataract of right eye (Acute) Ulcer of right foot limited to breakdown of skin (Acute 04/16/23) [facility] Ulcer of left foot, limited to breakdown of skin (Acute 04/16/23) [facility] Iron deficiency (Acute) 03/2023 iron studies indicating deficiency (NOT anemic) Migraine (Chronic) [facility] Chronic constipation (Chronic) [facility] Type 2 diabetes mellitus, with long-term current use of insulin (Chronic) With neuropathy & retinopathy (left, mild) Obesity (Chronic) Cirrhosis of liver (Chronic) [facility] Asthma (Chronic) Tobacco use disorder (Chronic) Started smoking age 9 Poorly controlled type 2 diabetes mellitus (Chronic 03/23/18) Polypharmacy (Chronic 12/14/15) Mild nonproliferative diabetic retinopathy associated with type 2 diabetes mellitus (Chronic 01/22/16) Mental health disorder (Chronic) Pt reports being diagnosed with bipolar disorder, disassociative disorder, anxiety, & multiple personality disorder Hypomagnesemia (Chronic 09/30/16) Hyperlipidemia (Chronic 09/30/16) 10-year ASCVD risk = unable to calculate due to not being age 40+ however dx T2DM, so Rx for statin 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 [facility] 2023: [facility] Depressive disorder (Chronic 10/31/14) ADMISSION SUICIDAL THOUGHTS 06/13/14 OD ATTEMPTS IN PAST Chronic nausea (Chronic) EGD 04/16/16 Dr. 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) Medical History (Updated 06/29/24 @ 20:09 by Hussain Espinal MD) DKA (diabetic ketoacidosis) Acute gallstone pancreatitis Acute pancreatitis Opioid use disorder MAT with methadone Chronic fatigue (07/19/15) Osteomyelitis Dyspareunia in female (07/09/17) Punctate keratitis of both eyes Ulcer of foot due to secondary diabetes Umbilical hernia (03/11/18) 03/17/2018: [facility] Premature surgical menopause JAD/BSO in late 20s, no HRT Hepatitis C 02/14/2016 labwork: undetectable RNA level Surgical History (Updated 06/24/24 @ 16:50 by Angeline Dela Cruz RN) S/P cholecystectomy (06/12/24) Dr Reyes Status post total hysterectomy and bilateral salpingo-oophorectomy (~2006) noncancerous reasons Status post left foot surgery (10/2022) Left fourth metatarsal head excision for chronic ulcer, osteomyelitis ([facility]/Tamia Vidales, DPM) Status post section (~2003) EGD (04/16/16) Dr. Ferrer Family History Mother , 46yo due to kidney & liver failure due to alcohol Substance use disorder Alcohol use disorder Father , 62yo from ALS Substance use disorder Alcohol use disorder ALS (amyotrophic lateral sclerosis) Grandmother Colon cancer Paternal Paternal Uncle Cardiac arrest Substance use disorder Alcohol and Pain Medication Abuse Social History Smoking/Tobacco Use Status: Current every day Tobacco Type: cigarettes Smoking packs per day: 1 Smoking cigarettes per day: 20.0 Tobacco: How many years used: 33 Quit status: considering quitting Smoking risk assessment performed?: Yes Alcohol Intake: never Drug use: Occasionally Substance use type: former substance user and marijuana Details: Pt. 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 Pets and animals: Yes (1 dog, 4 cats) Pets and animals: cat(s) and dog(s) Sexually active: Yes Do you think of yourself as: straight/heterosexual Current gender identity: female Other: 09/2022: pt reports she is engaged What is your relationship status?: How often do you talk on the phone with friends or family?: three or more times per week How often do you get together with friends or relatives?: once per week How often do you attend jehovah's witness or jehovah's witness services?: decline to answer Do you belong to any clubs or organized social groups?: no Panel score (0-1 are the most socially isolated patients): 2 What type of physical activity do you participate in: none Duration: decline to answer Frequency: decline to answer Seatbelt use: always Helmet use: No (No reason to wear one) Drive intox or ride w/intox port cdl a 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
[2024-06-29] MEDS: Ketorolac 15 MG/ML VIAL IM (20:09)
[2024-06-29] MEDS: LORazepam 1 MG TAB PO (20:09)
[2024-06-29] MEDS: Doxycycline Hyclate 100 MG CAP PO (20:09)
[2024-06-29 20:38] VITALS: BP 173/73; PULSE 63; RESP 20; TEMP 36.8; O2SAT 94
== END 2024-06-29 20:44 | disposition home or self-care (01) ==
PROVIDERS: Emergency Provider Emergency Medicine; PCP Nurse Practitioner Adult Health
DX: L97.521 Non-pressure chronic ulcer of other part of left foot limited to breakdown of skin (principal); E11.621 Type 2 diabetes mellitus with foot ulcer
CPT/HCPCS: 36416; 82962; 96372; 99284; 99283; J1885

== ENCOUNTER 2024-07-05 12:17 | Emergency (ER) | payer OTHER, SELFPAY ==
--- NOTE | 2024-07-05 12:15 | RT.EKG_ITS ---
APPROVED REPORT Exam: Resting ECG Reason for Exam: Anxiety, swelling in feet, epigastric pain. Patient Location: E HR:75 bpm ECG Measurements Heart Rate 75 AXIS [place] 178 P 33 QRSd 82 QRS 47 QT 414 T 0 QTc 463 Conclusion Sinus rhythm. 75 normal axis no stemi
[2024-07-05 12:23] VITALS: BP 174/71; PULSE 77; RESP 15; TEMP 36.6; O2SAT 91
[2024-07-05 14:07] VITALS: BP 167/90; PULSE 78; RESP 18; O2SAT 92
[2024-07-05 14:09] LABS: Bilirubin Negative (Negative); Blood Negative (Negative); Clarity Clear (Clear); Glucose Negative (Negative); Ketones Negative (Negative); Leukocyte Esterase Negative (Negative); Nitrite Negative (Negative); Urobilinogen 0.2 mg/dL (Up to 0.2)
[2024-07-05 14:10] VITALS: BP 174/71; PULSE 77; RESP 15; TEMP 36.6; O2SAT 93
[2024-07-05] MEDS: Ondansetron 4 MG/2 ML VIAL IVP (14:15)
[2024-07-05 14:19] LABS: Abs Immature Grans 0.04 10^3/uL (0.0-0.06); Absolute Basophil Count 0.04 10^3/uL (0.0-0.2); Absolute Eosinophil Count 0.13 10^3/uL (0.0-0.7); Absolute Lymphocyte Count 1.87 10^3/uL (1.2-3.4); Absolute Monocyte Count 0.56 10^3/uL (0.1-0.8); Absolute Neutrophil Count 6.92 10^3/uL (1.2-6.7); Basophils % 0.4 %; Eosinophils % 1.4 %; HCT 38.6 % (36.0-46.0); HGB 11.9 g/dL (11.2-15.7); Immature Grans % 0.4 %; Lymphocytes % 19.6 %; MCH 25.2 pg (27.0-33.0); MCHC 30.8 % (32.0-36.0); MCV 82 fL (80-95); MPV 11.4 fL (8.0-11.0); Monocytes % 5.9 %; Neutrophils % 72.3 %; Platelet Count 186 10^3/uL (130-400); RBC 4.73 10^6/uL (3.93-5.22); RDW 17.4 % (11.7-14.6); RDW-SD 50.3 fL; WBC 9.56 10^3/uL (4.4-10.8)
[2024-07-05 14:21] LABS: Lactate 2.2 mmol/L (0.6-1.4)
[2024-07-05 14:32] LABS: Lipase 17 U/L (16-77)
[2024-07-05 14:40] LABS: ALT 32 U/L (14-59); AST 28 U/L (15-37); Albumin 3.3 g/dL (3.4-5.0); Alkaline Phosphatase 209 U/L (46-116); Anion Gap 7.8 mmol/L (3-11); BUN 14 mg/dL (7-18); Bilirubin, Total 0.49 mg/dL (0.2-1.0); CO2 31.2 mmol/L (21.0-32.0); Calcium 9.2 mg/dL (8.5-10.1); Chloride 104 mmol/L (98-107); Glucose 148 mg/dL (74-106); Magnesium 1.5 mg/dL (1.8-2.4); Potassium 3.9 mmol/L (3.5-5.1); Sodium 143 mmol/L (136-145); Total Protein 7.3 g/dL (6.4-8.2)
[2024-07-05] MEDS: MAGNESIUM SULFATE 2 GM/50 ML BAG IVINF (15:09)
[2024-07-05 15:37] LABS: Lactate 1.6 mmol/L (0.6-1.4)
[2024-07-05 15:44] VITALS: PULSE 69
[2024-07-05 15:54] VITALS: BP 161/73; PULSE 79; RESP 22; TEMP 36.5; O2SAT 91
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
[2024-07-05 16:47] VITALS: BP 179/82; PULSE 82; RESP 20; TEMP 36.6; O2SAT 90
== END 2024-07-05 16:40 | disposition home or self-care (01) ==
PROVIDERS: Emergency Provider Emergency Medicine; PCP Nurse Practitioner Adult Health
DX: R10.13 Epigastric pain (principal); E11.43 Type 2 diabetes mellitus with diabetic autonomic (poly)neuropathy; K31.84 Gastroparesis; E83.42 Hypomagnesemia; S05.01XA Injury of conjunctiva and corneal abrasion without foreign body, right eye, initial encounter; E11.3299 Type 2 diabetes mellitus with mild nonproliferative diabetic retinopathy without macular edema, unspecified eye; Z90.49 Acquired absence of other specified parts of digestive tract; F17.210 Nicotine dependence, cigarettes, uncomplicated; Z79.4 Long term (current) use of insulin
CPT/HCPCS: 36415; 80053; 82962; 83690; 93005; 96365; 96375; 99284; 81003; 83605; 83735; 85025; 93010; J2405; J3475

== ENCOUNTER 2024-07-07 15:11 | Outpatient (CLI) | payer OTHER, SELFPAY ==
[2024-07-07 19:29] LABS: Anion Gap 10.2 mmol/L (3-11); BUN 15 mg/dL (7-18); CO2 28.8 mmol/L (21.0-32.0); CREATININE 0.9 mg/dL (0.55-1.02); Calcium 9.3 mg/dL (8.5-10.1); Chloride 105 mmol/L (98-107); Estimated GFR 80.34 (mL/min/1.73m2); Glucose 146 mg/dL (74-106); Magnesium 1.5 mg/dL (1.8-2.4); Potassium 4.8 mmol/L (3.5-5.1); Sodium 144 mmol/L (136-145)
[2024-07-07 20:13] LABS: NT-proBNP 1321 pg/mL (<300)
== END 2024-07-07 15:12 | disposition home or self-care (01) ==
LOC: LBO 15:12
PROVIDERS: PCP Nurse Practitioner Adult Health; Visit Provider Student in an Organized Health Care Education/Training Program
DX: R06.01 Orthopnea (principal); I21.9 Acute myocardial infarction, unspecified; E11.621 Type 2 diabetes mellitus with foot ulcer; L97.509 Non-pressure chronic ulcer of other part of unspecified foot with unspecified severity; E11.65 Type 2 diabetes mellitus with hyperglycemia; E83.42 Hypomagnesemia
CPT/HCPCS: 36415; 80048; 83735; 83880

== ENCOUNTER 2024-07-07 15:12 | Outpatient (CLI) | payer OTHER, SELFPAY ==
--- NOTE | 2024-07-07 14:45 | DI.RAD_ITS ---
Exam(s) XR CHEST 2V PA LATERAL EXAM: XR CHEST 2V PA LATERAL CLINICAL HISTORY: eval lungs and heart, cough, sob, R05.9, R06.02. TECHNIQUE: 2D digital imaging was performed. COMPARISON: CR,XR XR PORTABLE CHEST AP from 06/14/2024 FINDINGS: 2 views: Cardiomegaly again noted. Mediastinum unchanged. There is now some left upper lobe parahilar infiltrate seen on the frontal view, this measuring appro ximately 3 by 1.5 cm. Infiltrate versus mass. Mild increased markings also noted in the right lower lobe infrahilar region. There are no pleural effusions evident. No fractures. No pneumothorax. IMPRESSION: There is a 3 x 1.5 cm nodular infiltrate in the left upper lobe region which was not evident on image s of 06/14/2024. Infectious versus neoplastic. Close follow-up recommended. If clinically indicate d CT scan can be performed. DATA REPOSITORY: RADIATION DOSE DELIVERED:
== END 2024-07-07 15:32 ==
LOC: DI 15:12
PROVIDERS: PCP Nurse Practitioner Adult Health; Visit Provider Student in an Organized Health Care Education/Training Program
DX: R91.8 Other nonspecific abnormal finding of lung field (principal)
CPT/HCPCS: 71046

== ENCOUNTER 2024-07-18 15:48 | Emergency (ER) | payer OTHER, SELFPAY ==
[2024-07-18] VITALS (44 sets, daily range): BP systolic 100–128; BP diastolic 46–74; PULSE 70–82; RESP 9–24; TEMP 36.2–36.7; O2SAT 89–97
--- NOTE | 2024-07-18 15:45 | RT.EKG_ITS ---
APPROVED REPORT Exam: Resting ECG Reason for Exam: sob,chest pain Patient Location: E HR:76 bpm ECG Measurements Heart Rate 76 AXIS MA 171 P 49 QRSd 100 QRS 46 QT [id number] T 63 QTc 0 Conclusion Sinus rhythm...normal P axis, V-rate 60- 99 ST elevation, consider inferior injury...ST >0.08mV, II III aVF Narrow complex normal sinus rhythm. Low voltage. Poor R wave progression. Diffuse T wave flattenin g. No acute injury pattern. Appears similar to prior dated earlier this month.
--- NOTE | 2024-07-18 16:00 | DI.RAD_ITS ---
Exam(s) XR PORTABLE CHEST AP EXAM: XR PORTABLE CHEST AP CLINICAL HISTORY: shortness of breath. TECHNIQUE: 2D digital imaging was performed. COMPARISON: CR XR CHEST 2V PA LATERAL from 07/07/2024 FINDINGS: Single AP portable view. There is cardiomegaly again noted. Mediastinum unchanged. Previously present left upper lobe infiltrate has resolved. There presently no infiltrates nor pleur al effusions. No pulmonary edema. IMPRESSION: No acute pulmonary findings on this single AP portable view of the chest. Left upper lobe infiltrate has resolved. Cardiomegaly again noted. No pulmonary edema. DATA REPOSITORY: RADIATION DOSE DELIVERED:
[2024-07-18] MEDS: Albuterol/Ipratropium 3 ML UPD VIAL UPD (16:31)
[2024-07-18 16:39] LABS: Abs Immature Grans 0.11 10^3/uL (0.0-0.06); Absolute Basophil Count 0.05 10^3/uL (0.0-0.2); Absolute Eosinophil Count 0.21 10^3/uL (0.0-0.7); Absolute Lymphocyte Count 2.64 10^3/uL (1.2-3.4); Absolute Monocyte Count 0.64 10^3/uL (0.1-0.8); Basophils % 0.4 %; Eosinophils % 1.6 %; HCT 40.1 % (36.0-46.0); HGB 12.1 g/dL (11.2-15.7); Immature Grans % 0.9 %; Lymphocytes % 20.5 %; MCH 24.7 pg (27.0-33.0); MCHC 30.2 % (32.0-36.0); MCV 82 fL (80-95); MPV 11.6 fL (8.0-11.0); Neutrophils % 71.6 %; Platelet Count 268 10^3/uL (130-400); RDW 17.1 % (11.7-14.6); RDW-SD 50.1 fL; WBC 12.88 10^3/uL (4.4-10.8)
[2024-07-18 16:47] LABS: Absolute Neutrophil Count 9.22 10^3/uL (1.2-6.7)
[2024-07-18 16:51] LABS: pCO2 (Venous) 58 mmHg (41-51); pH (Venous) 7.33 (7.31-7.41)
[2024-07-18 16:52] LABS: BE (Venous) 4 mmol/L (-2-3); HCO3 (Venous) 30 mmol/L (23-28); O2 Sat (Venous) 53 %; TCO2 (Venous) 32 mmol/L (24-29); pO2 (Venous) 31 mmHg
--- NOTE | 2024-07-18 17:00 | RT.EKG_ITS ---
APPROVED REPORT Exam: Resting ECG Reason for Exam: chest pain Patient Location: E HR:78 bpm ECG Measurements Heart Rate 78 AXIS IL 173 P 38 QRSd 84 QRS 16 QT 323 T 25 QTc 368 Conclusion Sinus rhythm...normal P axis, V-rate 60- 99 I have reviewed and interpreted ECG and agree with software generated interpretation.
[2024-07-18] MEDS: nitroGLYcerin 0.4 MG TAB SL (17:10)
[2024-07-18 17:14] LABS: Bilirubin Negative (Negative); Blood Negative (Negative); Clarity Clear (Clear); Glucose >=1000 mg/dL (Negative); Ketones Negative (Negative); Leukocyte Esterase Negative (Negative); Nitrite Negative (Negative); Specific Gravity 1.015 (1.005-1.025); Urobilinogen 0.2 mg/dL (Up to 0.2); pH 5.5 (5-8)
[2024-07-18 17:19] LABS: ALT 24 U/L (14-59); AST 30 U/L (15-37); Albumin 3.1 g/dL (3.4-5.0); Alkaline Phosphatase 182 U/L (46-116); Anion Gap 8.2 mmol/L (3-11); BUN 22 mg/dL (7-18); Bilirubin, Total 0.25 mg/dL (0.2-1.0); CO2 30.8 mmol/L (21.0-32.0); CREATININE 1.1 mg/dL (0.55-1.02); Calcium 9.5 mg/dL (8.5-10.1); Chloride 103 mmol/L (98-107); Estimated GFR 63.15 (mL/min/1.73m2); Glucose 318 mg/dL (74-106); Magnesium 1.5 mg/dL (1.8-2.4); NT-proBNP 638 pg/mL (<300); Potassium 4.5 mmol/L (3.5-5.1); Sodium 142 mmol/L (136-145); Total Protein 7.3 g/dL (6.4-8.2); Troponin I 5 ng/L (<or=51)
[2024-07-18 17:21] LABS: Bacteria Rare HPF (Negative); Casts Negative LPF (Negative); Crystals Negative HPF (Negative); Epithelial Cells Few HPF (Negative); Mucus Negative (Negative); RBC 0-2 HPF (0-2); WBC 0-2 HPF (0-5)
[2024-07-18 17:22] LABS: C & S Indicated? No; Other Cells Negative (Negative)
[2024-07-18] MEDS: Furosemide 20 MG/2 ML VIAL IVP ×2 (17:37→18:56)
[2024-07-18 17:42] LABS: COVID-19 PCR Negative (Negative); Influenza A PCR Negative (Negative); Influenza B PCR Negative (Negative); RSV PCR Negative (Negative)
[2024-07-18 17:45] LABS: Source Nasopharynx
[2024-07-18 17:55] LABS: Troponin I 5 ng/L (<or=51)
--- NOTE | 2024-07-18 17:57 | DI.VRAD_ITS ---
PROCEDURE INFORMATION: Exam: XR Chest Exam date and time: 07/18/2024 4:31 PM Age: 43 years old Clinical indication: Shortness of breath TECHNIQUE: Imaging protocol: Radiologic exam of the chest. Views: 1 view. COMPARISON: CR XR CHEST 2V PA LATERAL 07/07/2024 3:07 PM FINDINGS: Lungs: Unremarkable. No consolidation. Pleural spaces: Unremarkable. No pleural effusion. No pneumothorax. Heart/Mediastinum: Mild cardiomegaly. Bones/joints: Mild degenerative disease of the left acromioclavicular joint. IMPRESSION: No acute cardiopulmonary process. Dictated and Authenticated by: Braydon Montana MD. Ordering:PUNEET Wong MD
[2024-07-18 19:38] LABS: Troponin I 6 ng/L (<or=51)
[2024-07-18] MEDS: Magnesium Oxide 400 MG TAB 800 MG PO (20:51)
--- NOTE | 2024-07-18 21:31 | ED.GENADUL_ITS ---
Discharge Plan Disposition Patient Disposition: Home Discharge Details Clinical Impression: CHF (congestive heart failure), Diabetes Primary Care Provider: Lorena Mann ED Provider: Judith Chavez Home Meds and New Rx's Prescriptions: New furosemide [Lasix] 40 mg tablet 40 mg PO DAILY Qty: 14 0RF magnesium 250 mg tablet 250 mg PO DAILY Qty: 14 0RF Continued albuterol sulfate 90 mcg/actuation HFA aerosol inhaler 1 - 2 puff Inhalation Q4-6H PRN Qty: 1 1RF Rx Instructions: DISPENSE ALBUTEROL INHALER BRAND COVERED BY INSURANCE metoclopramide HCl 10 mg tablet 10 mg PO TID PRN Rx Instructions: administer 30 minutes before meals ondansetron 8 mg tablet,disintegrating 8 mg PO BID PRN (Reason: nausea and vomiting) Qty: 60 11RF gabapentin 300 mg capsule 300 mg PO HS PRN (Reason: back pain) Qty: 60 0RF Gvoke HypoPen 2-Pack 1 mg/0.2 mL auto-injector 1 mg subcut ONCE Qty: 0.4 1RF Rx Instructions: HYPOGLYCEMIA; as a single dose; may repeat once after 15 minutes if no response methocarbamol 500 mg tablet 1,000 mg PO HS PRN (Reason: muscle spasm) Qty: 90 0RF Rx Instructions: Use lowest effective dose for shortest duration for muscle spasm ipratropium-albuterol 0.5 mg-3 mg(2.5 mg base)/3 mL solution for nebulization 3 ml inhalation QID PRN (Reason: wheezing) Qty: 180 1RF Rx Instructions: During asthma exacerbation, may use preventatively TID, titrating down to QID PRN as wheeze & SOB improve. fluticasone propion-salmeterol [Advair Diskus] 250-50 mcg/dose blister with device 1 inh inhalation BID Qty: 60 1RF Rx Instructions: Please use this during asthma exacerbations, wean off as shortness of breath & wheeze improve. atorvastatin 80 mg tablet 80 mg PO DAILY Qty: 90 3RF (DME) Dexcom G6 Sensor Device See Rx Instructions .ROUTE .COMPLEX Qty: 3 6RF Dose Instruction: USE DIRECTED Rx Instructions: USE DIRECTED methadone [Methadone Intensol] 10 mg/mL concentrate 77 mg PO DAILY alcohol swabs [Alcohol Pads] Pads, Medicated 1 pad Topical QID Qty: 400 3RF naloxone [Narcan] 4 mg/actuation spray,non-aerosol 4 mg intranasal Q2M PRN (Reason: opioid overdose) Qty: 2 0RF Rx Instructions: spray 1 dose into ONE nostril; alternate nostrils w each dose until help arrives (DME) [employer] G6 Transmitter Device See Rx Instructions .Route Qty: 3 3RF Rx Instructions: As directed pregabalin 200 mg capsule 200 mg PO TID Qty: 90 3RF metoprolol succinate 50 mg tablet extended release 24 hr 50 mg PO DAILY Qty: 30 1RF Rx Instructions: Trial lower dose (50+25=75mg) due to fatigue/SOB (on 100mg) (DME) foam pillow triangular See Rx Instructions .Route .MEDSUPPLY Qty: 1 0RF Rx Instructions: Trial sleeping & resting (legs need elevation) @ 30-40' angle to alleviate SOB/Panic acetaminophen 500 mg tablet 500 - 1,000 mg PO Q8H MDD 3000 mg PRN (Reason: fever or pain) Qty: 180 0RF Rx Instructions: 1 month supply (DME) pen needle, diabetic [BD Ultra-Fine Yamini Pen Needle] 32 gauge x 5/32 needle See Rx Instructions .ROUTE .COMPLEX Qty: 100 0RF Dose Instruction: USE TO ADMINISTER INSULIN ONCE DAILY Rx Instructions: USE TO ADMINISTER INSULIN ONCE DAILY (DME) blood-glucose meter Misc See Rx Instructions .Route Qty: 1 0RF Rx Instructions: One Touch meter (DME) lancets Misc See Rx Instructions .ROUTE .MEDSUPPLY Qty: 400 3RF Rx Instructions: As directed to check blood glucose four times daily. On insulin. Dispense one touch ultra insulin aspart U-100 [Novolog FlexPen U-100 Insulin] 100 unit/mL (3 mL) insulin pen 15 unit subcut AC Qty: 15 3RF Rx Instructions: 10-15 units sliding scale before meals valacyclovir 500 mg tablet 500 mg PO DAILY Qty: 90 3RF (DME) Blood Glucose Test Strip See Rx Instructions .MEDSUPPLY Qty: 400 3RF Rx Instructions: As directed to check blood glucose four times daily. On insulin. Dispense one touch ultra magnesium oxide 400 mg (241.3 mg magnesium) tablet 400 mg PO BID Qty: 180 0RF omeprazole 40 mg capsule,delayed release(DR/EC) 40 mg PO DAILY Qty: 90 3RF nystatin 100,000 unit/gram powder 1 applic Topical BID PRN (Reason: fungal skin infection) Qty: 30 3RF Rx Instructions: Apply powder to affected area under R breast twice daily lorazepam 0.5 mg tablet See Rx Instructions PO DAILY PRN (Reason: dyspnea) Qty: 14 0RF Rx Instructions: Short term increase to BID PRN panic or shortness of breath orally daily PRN; (FYI to Prescriber @ [facility]) insulin degludec [Tresiba FlexTouch U-100] 100 unit/mL (3 mL) insulin pen 30 unit subcut DAILY Patient Comments: takes more than rx'd due to blood sugars being high Rx Instructions: 07/13/2024 PER [facility] decrease to 30 units losartan 25 mg tablet 25 mg PO DAILY spironolactone 25 mg tablet 25 mg PO DAILY furosemide 20 mg tablet 20 mg PO DAILY clonidine HCl 0.2 mg tablet 0.2 mg PO HS Patient Comments: TAKE 1 TABLET BY MOUTH EVERY NIGHT AT BEDTIME mirtazapine 15 mg tablet 15 mg PO HS Ajovy Autoinjector 225 mg/1.5 mL auto-injector 225 mg subcut QMONTH Botox 100 unit recon soln 300 unit IM ONCE Rx Instructions: divided among affected muscles lurasidone 80 mg tablet 80 mg PO DAILY Patient Comments: TAKE ONE TABLET BY MOUTH EVERY DAY WITH AT LEAST 350 CALORIES ketorolac 10 mg tablet 10 mg PO Q8H PRN (Reason: pain) Qty: 30 0RF Rx Instructions: maximum total duration of 5 days from all oral, intranasal, or parenteral formulations metoprolol succinate 25 mg tablet extended release 24 hr 100 mg PO DAILY Discharge Instructions Instructions: Low Magnesium Level, Heart Failure ED Additional Instructions: Increase your Lasix to 40 mg daily Take magnesium daily Follow-up with your newly established primary care physician on 22 July at your scheduled appointment Should your symptoms including chest discomfort or shortness of breath worsen, please be reevaluated Please return should you have worsening shortness of breath, chest pain, or should any new concerns arise Referrals: Lorena Mann NP [Primary Care Provider] - 2 days HPI General Date/Time Provider Initiated Documentation: 07/18/24 16:12 . HPI Narrative: This 43-year-old female presents with report of shortness of breath and chest d iscomfort which started approximately 24 hours prior to arrival. States that she has had this pain intermittently over the course of the past several weeks and is last been hospitalized twice at [facility] for similar presentation. She states that she was diagnosed with CHF and started on Lasix at that time. She takes 20 mg of Lasix daily, metoprolol, Symbicort, and spironolactone all of which are new medications for this patient. She states she had an extensive evaluation at [facility] and is scheduled for primary care physician and bilingual receptionist in the outpatient setting. She presents here predominantly secondary to worsening shortness of breath and 5 pound weight gain in the past several days. She states she went from 2 34-2 39 and was told to be reevaluated if this occurred. She also states that she is becoming hypoxic at home intermittently. She has been previously diagnosed with sleep apnea and states that she wakes up she is having difficulty sleeping in the middle of the night, shortness of breath. She was told she likely benefit from oxygen at night but this was not arranged for patient. Denies any fever, chills, new calf pain or swelling. She has been taking all of her meds as prescribed per patient. Related Data Home Medications ?Medication ?Instructions ?Recorded ?Confirmed acetaminophen 500 mg tablet 500 - 1,000 mg (1 - 2 x 500 mg) PO 09/24/19 07/18/24 Q8H PRN fever or pain #180 tab-caps alcohol swabs (Alcohol Pads) 1 pad topical QID #400 ea 10/25/22 07/18/24 pen needle, diabetic 32 gauge x #100 ea 06/30/23 07/07/24 (BD Ultra-Fine Yamini Pen Needle) blood-glucose meter #1 ea 08/28/23 07/07/24 lancets #400 ea 08/28/23 07/07/24 clonidine HCl 0.2 mg tablet 0.2 mg PO HS 11/21/23 07/18/24 insulin aspart U-100 100 unit/mL 15 unit (0.15 mL) subcut AC #15 mL 01/05/24 07/18/24 (3 mL) subcutaneous pen (Novolog FlexPen U-100 Insulin aspart) naloxone 4 mg/actuation nasal 4 mg intranasal Q2M PRN opioid 05/24/24 10/27/24 spray (Narcan) overdose #2 ea 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 04/12/24 07/18/24 #90 tab-caps blood sugar diagnostic (Blood #400 ea 04/26/24 07/07/24 Glucose Test strips) magnesium oxide 400 mg (241.3 mg 400 mg PO BID #180 tabs 04/26/24 07/18/24 magnesium) tablet mirtazapine 15 mg tablet 15 mg PO HS 05/03/24 07/18/24 omeprazole 40 mg capsule,delayed 40 mg PO DAILY #90 caps 05/20/24 07/18/24 release nystatin 100,000 unit/gram topical 1 applic topical BID PRN fungal 05/25/24 07/18/24 powder skin infection #30 grams albuterol sulfate 90 mcg/actuation 1 - 2 puff inhalation Q4-6H PRN ##1 05/31/24 07/18/24 aerosol inhaler fluticasone 250 mcg-salmeterol 50 1 inh inhalation BID #60 ea 05/31/24 07/18/24 mcg/dose blistr powdr for inhalation (Advair Diskus) gabapentin 300 mg capsule 300 mg PO HS PRN back pain #60 caps 05/31/24 07/18/24 glucagon 1 mg/0.2 mL subcutaneous 1 mg (0.2 mL) subcut ONCE #0.4 mL 05/31/24 07/18/24 auto-injector (Gvoke HypoPen 2-Pack) ipratropium 0.5 mg-albuterol 3 mg 3 ml inhalation QID PRN wheezing 05/31/24 07/18/24 (2.5 mg base)/3 mL nebulization #180 mL soln methocarbamol 500 mg tablet 1,000 mg (2 x 500 mg) PO HS PRN 05/31/24 07/18/24 muscle spasm #90 tabs metoclopramide HCl 10 mg tablet 10 mg PO TID PRN 05/31/24 07/18/24 ondansetron 8 mg disintegrating 8 mg PO BID PRN nausea and 05/31/24 07/18/24 tablet vomiting #60 tabs fremanezumab-vfrm 225 mg/1.5 mL 225 mg subcut QMONTH 06/07/24 07/18/24 subcutaneous auto-injector (Ajovy) onabotulinumtoxinA 100 unit 300 unit IM ONCE 06/07/24 07/18/24 solution for injection (Botox) lurasidone 80 mg tablet 80 mg PO DAILY 06/08/24 07/18/24 atorvastatin 80 mg tablet 80 mg PO DAILY #90 tabs 06/23/24 07/18/24 blood-glucose sensor (Dexcom G6 #3 ea 06/23/24 07/07/24 Sensor device) methadone 10 mg/mL oral 77 mg PO DAILY 06/23/24 07/18/24 concentrate (Methadone Intensol) ketorolac 10 mg tablet 10 mg PO Q8H PRN pain #30 tabs 06/29/24 07/18/24 blood-glucose transmitter (Dexcom #3 ea 07/07/24 07/07/24 G6 Transmitter device) foam pillow #1 ea 07/07/24 07/07/24 metoprolol succinate 50 mg 50 mg PO DAILY recent [place] #30 tabs 07/07/24 07/18/24 tablet,extended release 24 hr pregabalin 200 mg capsule 200 mg PO TID #90 caps 07/07/24 07/18/24 lorazepam 0.5 mg tablet See Rx Instructions PO DAILY PRN 07/08/24 07/18/24 dyspnea #14 tabs insulin degludec 100 unit/mL (3 30 unit subcut DAILY 07/13/24 07/18/24 mL) subcutaneous pen (Tresiba FlexTouch U-100 insulin) furosemide 20 mg tablet 20 mg PO DAILY 07/14/24 07/18/24 losartan 25 mg tablet 25 mg PO DAILY 07/14/24 07/18/24 spironolactone 25 mg tablet 25 mg PO DAILY 07/14/24 07/18/24 furosemide 40 mg tablet (Lasix) 40 mg PO DAILY #14 tabs 07/18/24 magnesium 250 mg tablet 250 mg PO DAILY #14 tabs 07/18/24 metoprolol succinate 25 mg 100 mg PO DAILY 07/18/24 07/18/24 tablet,extended release 24 hr Previous Rx's ?Medication ?Instructions ?Recorded acetaminophen 500 mg tablet 500 - 1,000 mg (1 - 2 x 500 mg) PO 09/24/19 Q8H PRN fever or pain #180 tab-caps alcohol swabs (Alcohol Pads) 1 pad topical QID #400 ea 10/25/22 pen needle, diabetic 32 gauge x #100 ea 06/30/23/32 (BD Ultra-Fine Yamini Pen Needle) blood-glucose meter #1 ea 08/28/23 lancets #400 ea 08/28/23 insulin aspart U-100 100 unit/mL 15 unit (0.15 mL) subcut AC #15 mL 01/05/24 (3 mL) subcutaneous pen (Novolog FlexPen U-100 Insulin aspart) naloxone 4 mg/actuation nasal 4 mg intranasal Q2M PRN opioid 02/13/24 spray (Narcan) overdose #2 ea 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 04/12/24 #90 tab-caps blood sugar diagnostic (Blood #400 ea 04/26/24 Glucose Test strips) magnesium oxide 400 mg (241.3 mg 400 mg PO BID #180 tabs 04/26/24 magnesium) tablet omeprazole 40 mg capsule,delayed 40 mg PO DAILY #90 caps 05/20/24 release nystatin 100,000 unit/gram topical 1 applic topical BID PRN fungal 05/25/24 powder skin infection #30 grams albuterol sulfate 90 mcg/actuation 1 - 2 puff inhalation Q4-6H PRN ##1 05/31/24 aerosol inhaler fluticasone 250 mcg-salmeterol 50 1 inh inhalation BID #60 ea 05/31/24 mcg/dose blistr powdr for inhalation (Advair Diskus) gabapentin 300 mg capsule 300 mg PO HS PRN back pain #60 caps 05/31/24 glucagon 1 mg/0.2 mL subcutaneous 1 mg (0.2 mL) subcut ONCE #0.4 mL 05/31/24 auto-injector (Gvoke HypoPen 2-Pack) ipratropium 0.5 mg-albuterol 3 mg 3 ml inhalation QID PRN wheezing 05/31/24 (2.5 mg base)/3 mL nebulization #180 mL soln methocarbamol 500 mg tablet 1,000 mg (2 x 500 mg) PO HS PRN 05/31/24 muscle spasm #90 tabs ondansetron 8 mg disintegrating 8 mg PO BID PRN nausea and 05/31/24 tablet vomiting #60 tabs atorvastatin 80 mg tablet 80 mg PO DAILY #90 tabs 06/23/24 blood-glucose sensor (Dexcom G6 #3 ea 06/23/24 Sensor device) ketorolac 10 mg tablet 10 mg PO Q8H PRN pain #30 tabs 06/29/24 blood-glucose transmitter (Dexcom #3 ea 07/07/24 G6 Transmitter device) foam pillow #1 ea 07/07/24 metoprolol succinate 50 mg 50 mg PO DAILY recent [place] #30 tabs 07/07/24 tablet,extended release 24 hr pregabalin 200 mg capsule 200 mg PO TID #90 caps 07/07/24 lorazepam 0.5 mg tablet See Rx Instructions PO DAILY PRN 07/08/24 dyspnea #14 tabs furosemide 40 mg tablet (Lasix) 40 mg PO DAILY #14 tabs 07/18/24 magnesium 250 mg tablet 250 mg PO DAILY #14 tabs 07/18/24 Allergies Allergy/AdvReac Type Severity Reaction Status Date / Time Penicillins Allergy Severe lip and Verified 07/18/24 16:11 facial swelling lamotrigine (From Lamictal) Allergy Unknown Skin Rash Verified 07/18/24 16:11 clindamycin AdvReac Severe Nausea & Verified 07/18/24 16:11 vomiting aspirin AdvReac Intermediate nausea/pain Verified 07/18/24 16:11 General Stated Complaint: SOB CARLOS: 2 Exam Narrative Exam Narrative: 43-year-old female presenting with reports of shortness of breath, patient is alert and oriented, she is speaking in complete sentences, she appears chronically ill, pupils equal round reactive to light and accommodation, diminished lung sounds bilaterally without crackles, cardiac rate rhythm regular, no abdominal tenderness, 1+ edema to bilateral lower extremities, distal pulses intact no respiratory distress Course Vital Signs Vital signs: Vital Signs Pulse 74 07/18/24 15:59 Respiratory Rate 15 07/18/24 15:59 Blood Pressure 111/50 L 07/18/24 15:59 Pulse Oximetry 93 07/18/24 15:59 Temperature 36.7 C 07/18/24 20:52 Temperature Source Temporal Artery Scan 07/18/24 16:01 Pulse 77 07/18/24 20:52 Pulse 73 07/18/24 20:20 Respiratory Rate 16 07/18/24 20:52 Respiratory Effort Short of Breath 07/18/24 16:08 Blood Pressure 117/74 07/18/24 20:52 Blood Pressure Mean 87 07/18/24 20:21 Pulse Oximetry 96 10/27/24 20:52 Oxygen Delivery Method Room Air 07/18/24 16:10 Oxygen Flow Rate 0 07/18/24 16:01 Pain Level 8 07/18/24 17:10 Lab/Test Results Lab/Test Results: Laboratory Tests Range/Units 07/18/24 07/18/24 07/18/24 16:14 16:23 16:23 WBC (4.4-10.8) 10^3/uL 12.88 H RBC (3.93-5.22) 10^6/uL 4.90 Hgb (11.2-15.7) g/dL 12.1 Hct (36.0-46.0) % 40.1 MCV (80-95) fL 82 MCH (27.0-33.0) pg 24.7 L MCHC (32.0-36.0) % 30.2 L RDW (11.7-14.6) % 17.1 H Plt Count (130-400) 10^3/uL 268 MPV (8.0-11.0) fL 11.6 H Immature Gran % % 0.9 Neutrophils % % 71.6 Lymphocytes % % 20.5 Monocytes % % 5.0 Eosinophils % % 1.6 Basophils % % 0.4 Nucleated RBC % (0.0-0.3) % 0.0 Absolute Neutrophils (1.2-6.7) 10^3/uL 9.22 H Absolute Lymphocytes (1.2-3.4) 10^3/uL 2.64 Absolute Monocytes (0.1-0.8) 10^3/uL 0.64 Absolute Eosinophils (0.0-0.7) 10^3/uL 0.21 Absolute Basophils (0.0-0.2) 10^3/uL 0.05 D-Dimer Cancelled VBG pH (7.31-7.41) 7.33 VBG pCO2 (41-51) mmHg 58 H VBG pO2 mmHg 31 VBG HCO3 (23-28) mmol/L 30 H VBG Total CO2 (24-29) mmol/L 32 H VBG O2 Saturation % 53 VBG Base Excess (-2-3) mmol/L 4 H Sodium (136-145) mmol/L 142 Cancelled Potassium (3.5-5.1) mmol/L 4.5 Chloride (98-107) mmol/L Carbon Dioxide (21.0-32.0) mmol/L Anion Gap (3-11) mmol/L BUN (7-18) mg/dL Creatinine (0.55-1.02) mg/dL Est GFR (CKD-EPI 2020) (mL/min/1.73m2) Glucose (74-106) mg/dL Calcium (8.5-10.1) mg/dL Magnesium (1.8-2.4) mg/dL Total Bilirubin (0.2-1.0) mg/dL AST (15-37) U/L ALT (14-59) U/L Alkaline Phosphatase (46-116) U/L Troponin I (<or=51) ng/L NT-Pro-B Natriuret Pep (<300) pg/mL Total Protein (6.4-8.2) g/dL Albumin (3.4-5.0) g/dL Urine Color (Yellow) Urine Clarity (Clear) Urine pH (5-8) Ur Specific [place] (1.005-1.025) Urine Protein (Neg-Trace) mg/dL Urine Ketones (Negative) mg/dL Urine Blood (Negative) Urine Nitrite (Negative) Urine Bilirubin (Negative) Urine Urobilinogen (Up to 0.2) mg/dL Ur Leukocyte Esterase (Negative) Urine RBC (0-2) HPF Urine WBC (0-5) HPF Ur Epithelial Cells (Negative) HPF Urine Crystals (Negative) HPF Urine Bacteria (Negative) HPF Urine Casts (Negative) LPF Urine Mucus (Negative) Urine Other (Negative) Ur Culture Indicated? Urine Glucose (Negative) mg/dL COVID-19 Source SARS-CoV-2 (PCR) (Negative) Influenza Type A (PCR) (Negative) Influenza Type B (PCR) (Negative) RSV (PCR) (Negative) Range/Units 07/18/24 07/18/24 07/18/24 16:23 16:23 16:23 WBC (4.4-10.8) 10^3/uL RBC (3.93-5.22) 10^6/uL Hgb (11.2-15.7) g/dL Hct (36.0-46.0) % MCV (80-95) fL MCH (27.0-33.0) pg MCHC (32.0-36.0) % RDW (11.7-14.6) % Plt Count (130-400) 10^3/uL MPV (8.0-11.0) fL Immature Gran % % Neutrophils % % Lymphocytes % % Monocytes % % Eosinophils % % Basophils % % Nucleated RBC % (0.0-0.3) % Absolute Neutrophils (1.2-6.7) 10^3/uL Absolute Lymphocytes (1.2-3.4) 10^3/uL Absolute Monocytes (0.1-0.8) 10^3/uL Absolute Eosinophils (0.0-0.7) 10^3/uL Absolute Basophils (0.0-0.2) 10^3/uL D-Dimer VBG pH (7.31-7.41) VBG pCO2 (41-51) mmHg VBG pO2 mmHg VBG HCO3 (23-28) mmol/L VBG Total CO2 (24-29) mmol/L VBG O2 Saturation % VBG Base Excess (-2-3) mmol/L Sodium (136-145) mmol/L Potassium (3.5-5.1) mmol/L Cancelled Chloride (98-107) mmol/L 103 Cancelled Carbon Dioxide (21.0-32.0) mmol/L 30.8 Cancelled Anion Gap (3-11) mmol/L 8.2 BUN (7-18) mg/dL Creatinine (0.55-1.02) mg/dL Est GFR (CKD-EPI 2020) (mL/min/1.73m2) Glucose (74-106) mg/dL Calcium (8.5-10.1) mg/dL Magnesium (1.8-2.4) mg/dL Total Bilirubin (0.2-1.0) mg/dL AST (15-37) U/L ALT (14-59) U/L Alkaline Phosphatase (46-116) U/L Troponin I (<or=51) ng/L NT-Pro-B Natriuret Pep (<300) pg/mL Total Protein (6.4-8.2) g/dL Albumin (3.4-5.0) g/dL Urine Color (Yellow) Urine Clarity (Clear) Urine pH (5-8) Ur Specific [place] (1.005-1.025) Urine Protein (Neg-Trace) mg/dL Urine Ketones (Negative) mg/dL Urine Blood (Negative) Urine Nitrite (Negative) Urine Bilirubin (Negative) Urine Urobilinogen (Up to 0.2) mg/dL Ur Leukocyte Esterase (Negative) Urine RBC (0-2) HPF Urine WBC (0-5) HPF Ur Epithelial Cells (Negative) HPF Urine Crystals (Negative) HPF Urine Bacteria (Negative) HPF Urine Casts (Negative) LPF Urine Mucus (Negative) Urine Other (Negative) Ur Culture Indicated? Urine Glucose (Negative) mg/dL COVID-19 Source SARS-CoV-2 (PCR) (Negative) Influenza Type A (PCR) (Negative) Influenza Type B (PCR) (Negative) RSV (PCR) (Negative) Range/Units 07/18/24 07/18/24 07/18/24 16:23 16:23 16:23 WBC (4.4-10.8) 10^3/uL RBC (3.93-5.22) 10^6/uL Hgb (11.2-15.7) g/dL Hct (36.0-46.0) % MCV (80-95) fL MCH (27.0-33.0) pg MCHC (32.0-36.0) % RDW (11.7-14.6) % Plt Count (130-400) 10^3/uL MPV (8.0-11.0) fL Immature Gran % % Neutrophils % % Lymphocytes % % Monocytes % % Eosinophils % % Basophils % % Nucleated RBC % (0.0-0.3) % Absolute Neutrophils (1.2-6.7) 10^3/uL Absolute Lymphocytes (1.2-3.4) 10^3/uL Absolute Monocytes (0.1-0.8) 10^3/uL Absolute Eosinophils (0.0-0.7) 10^3/uL Absolute Basophils (0.0-0.2) 10^3/uL D-Dimer VBG pH (7.31-7.41) VBG pCO2 (41-51) mmHg VBG pO2 mmHg VBG HCO3 (23-28) mmol/L VBG Total CO2 (24-29) mmol/L VBG O2 Saturation % VBG Base Excess (-2-3) mmol/L Sodium (136-145) mmol/L Potassium (3.5-5.1) mmol/L Chloride (98-107) mmol/L Carbon Dioxide (21.0-32.0) mmol/L Anion Gap (3-11) mmol/L Cancelled BUN (7-18) mg/dL 22 H Cancelled Creatinine (0.55-1.02) mg/dL 1.1 H Cancelled Est GFR (CKD-EPI 2020) (mL/min/1.73m2) 63.15 Glucose (74-106) mg/dL Calcium (8.5-10.1) mg/dL Magnesium (1.8-2.4) mg/dL Total Bilirubin (0.2-1.0) mg/dL AST (15-37) U/L ALT (14-59) U/L Alkaline Phosphatase (46-116) U/L Troponin I (<or=51) ng/L NT-Pro-B Natriuret Pep (<300) pg/mL Total Protein (6.4-8.2) g/dL Albumin (3.4-5.0) g/dL Urine Color (Yellow) Urine Clarity (Clear) Urine pH (5-8) Ur Specific [place] (1.005-1.025) Urine Protein (Neg-Trace) mg/dL Urine Ketones (Negative) mg/dL Urine Blood (Negative) Urine Nitrite (Negative) Urine Bilirubin (Negative) Urine Urobilinogen (Up to 0.2) mg/dL Ur Leukocyte Esterase (Negative) Urine RBC (0-2) HPF Urine WBC (0-5) HPF Ur Epithelial Cells (Negative) HPF Urine Crystals (Negative) HPF Urine Bacteria (Negative) HPF Urine Casts (Negative) LPF Urine Mucus (Negative) Urine Other (Negative) Ur Culture Indicated? Urine Glucose (Negative) mg/dL COVID-19 Source SARS-CoV-2 (PCR) (Negative) Influenza Type A (PCR) (Negative) Influenza Type B (PCR) (Negative) RSV (PCR) (Negative) Range/Units 07/18/24 07/18/24 07/18/24 16:23 16:23 16:23 WBC (4.4-10.8) 10^3/uL RBC (3.93-5.22) 10^6/uL Hgb (11.2-15.7) g/dL Hct (36.0-46.0) % MCV (80-95) fL MCH (27.0-33.0) pg MCHC (32.0-36.0) % RDW (11.7-14.6) % Plt Count (130-400) 10^3/uL MPV (8.0-11.0) fL Immature Gran % % Neutrophils % % Lymphocytes % % Monocytes % % Eosinophils % % Basophils % % Nucleated RBC % (0.0-0.3) % Absolute Neutrophils (1.2-6.7) 10^3/uL Absolute Lymphocytes (1.2-3.4) 10^3/uL Absolute Monocytes (0.1-0.8) 10^3/uL Absolute Eosinophils (0.0-0.7) 10^3/uL Absolute Basophils (0.0-0.2) 10^3/uL D-Dimer VBG pH (7.31-7.41) VBG pCO2 (41-51) mmHg VBG pO2 mmHg VBG HCO3 (23-28) mmol/L VBG Total CO2 (24-29) mmol/L VBG O2 Saturation % VBG Base Excess (-2-3) mmol/L Sodium (136-145) mmol/L Potassium (3.5-5.1) mmol/L Chloride (98-107) mmol/L Carbon Dioxide (21.0-32.0) mmol/L Anion Gap (3-11) mmol/L BUN (7-18) mg/dL Creatinine (0.55-1.02) mg/dL Est GFR (CKD-EPI 2020) (mL/min/1.73m2) Cancelled Glucose (74-106) mg/dL 318 H Cancelled Calcium (8.5-10.1) mg/dL 9.5 Cancelled Magnesium (1.8-2.4) mg/dL 1.5 L Total Bilirubin (0.2-1.0) mg/dL 0.25 AST (15-37) U/L ALT (14-59) U/L Alkaline Phosphatase (46-116) U/L Troponin I (<or=51) ng/L NT-Pro-B Natriuret Pep (<300) pg/mL Total Protein (6.4-8.2) g/dL Albumin (3.4-5.0) g/dL Urine Color (Yellow) Urine Clarity (Clear) Urine pH (5-8) Ur Specific [place] (1.005-1.025) Urine Protein (Neg-Trace) mg/dL Urine Ketones (Negative) mg/dL Urine Blood (Negative) Urine Nitrite (Negative) Urine Bilirubin (Negative) Urine Urobilinogen (Up to 0.2) mg/dL Ur Leukocyte Esterase (Negative) Urine RBC (0-2) HPF Urine WBC (0-5) HPF Ur Epithelial Cells (Negative) HPF Urine Crystals (Negative) HPF Urine Bacteria (Negative) HPF Urine Casts (Negative) LPF Urine Mucus (Negative) Urine Other (Negative) Ur Culture Indicated? Urine Glucose (Negative) mg/dL COVID-19 Source SARS-CoV-2 (PCR) (Negative) Influenza Type A (PCR) (Negative) Influenza Type B (PCR) (Negative) RSV (PCR) (Negative) Range/Units 07/18/24 07/18/24 07/18/24 16:23 16:23 16:23 WBC (4.4-10.8) 10^3/uL RBC (3.93-5.22) 10^6/uL Hgb (11.2-15.7) g/dL Hct (36.0-46.0) % MCV (80-95) fL MCH (27.0-33.0) pg MCHC (32.0-36.0) % RDW (11.7-14.6) % Plt Count (130-400) 10^3/uL MPV (8.0-11.0) fL Immature Gran % % Neutrophils % % Lymphocytes % % Monocytes % % Eosinophils % % Basophils % % Nucleated RBC % (0.0-0.3) % Absolute Neutrophils (1.2-6.7) 10^3/uL Absolute Lymphocytes (1.2-3.4) 10^3/uL Absolute Monocytes (0.1-0.8) 10^3/uL Absolute Eosinophils (0.0-0.7) 10^3/uL Absolute Basophils (0.0-0.2) 10^3/uL D-Dimer VBG pH (7.31-7.41) VBG pCO2 (41-51) mmHg VBG pO2 mmHg VBG HCO3 (23-28) mmol/L VBG Total CO2 (24-29) mmol/L VBG O2 Saturation % VBG Base Excess (-2-3) mmol/L Sodium (136-145) mmol/L Potassium (3.5-5.1) mmol/L Chloride (98-107) mmol/L Carbon Dioxide (21.0-32.0) mmol/L Anion Gap (3-11) mmol/L BUN (7-18) mg/dL Creatinine (0.55-1.02) mg/dL Est GFR (CKD-EPI 2020) (mL/min/1.73m2) Glucose (74-106) mg/dL Calcium (8.5-10.1) mg/dL Magnesium (1.8-2.4) mg/dL Total Bilirubin (0.2-1.0) mg/dL Cancelled AST (15-37) U/L 30 Cancelled ALT (14-59) U/L 24 Cancelled Alkaline Phosphatase (46-116) U/L 182 H Troponin I (<or=51) ng/L NT-Pro-B Natriuret Pep (<300) pg/mL Total Protein (6.4-8.2) g/dL Albumin (3.4-5.0) g/dL Urine Color (Yellow) Urine Clarity (Clear) Urine pH (5-8) Ur Specific [place] (1.005-1.025) Urine Protein (Neg-Trace) mg/dL Urine Ketones (Negative) mg/dL Urine Blood (Negative) Urine Nitrite (Negative) Urine Bilirubin (Negative) Urine Urobilinogen (Up to 0.2) mg/dL Ur Leukocyte Esterase (Negative) Urine RBC (0-2) HPF Urine WBC (0-5) HPF Ur Epithelial Cells (Negative) HPF Urine Crystals (Negative) HPF Urine Bacteria (Negative) HPF Urine Casts (Negative) LPF Urine Mucus (Negative) Urine Other (Negative) Ur Culture Indicated? Urine Glucose (Negative) mg/dL COVID-19 Source SARS-CoV-2 (PCR) (Negative) Influenza Type A (PCR) (Negative) Influenza Type B (PCR) (Negative) RSV (PCR) (Negative) Range/Units 07/18/24 07/18/24 07/18/24 16:23 16:23 16:23 WBC (4.4-10.8) 10^3/uL RBC (3.93-5.22) 10^6/uL Hgb (11.2-15.7) g/dL Hct (36.0-46.0) % MCV (80-95) fL MCH (27.0-33.0) pg MCHC (32.0-36.0) % RDW (11.7-14.6) % Plt Count (130-400) 10^3/uL MPV (8.0-11.0) fL Immature Gran % % Neutrophils % % Lymphocytes % % Monocytes % % Eosinophils % % Basophils % % Nucleated RBC % (0.0-0.3) % Absolute Neutrophils (1.2-6.7) 10^3/uL Absolute Lymphocytes (1.2-3.4) 10^3/uL Absolute Monocytes (0.1-0.8) 10^3/uL Absolute Eosinophils (0.0-0.7) 10^3/uL Absolute Basophils (0.0-0.2) 10^3/uL D-Dimer VBG pH (7.31-7.41) VBG pCO2 (41-51) mmHg VBG pO2 mmHg VBG HCO3 (23-28) mmol/L VBG Total CO2 (24-29) mmol/L VBG O2 Saturation % VBG Base Excess (-2-3) mmol/L Sodium (136-145) mmol/L Potassium (3.5-5.1) mmol/L Chloride (98-107) mmol/L Carbon Dioxide (21.0-32.0) mmol/L Anion Gap (3-11) mmol/L BUN (7-18) mg/dL Creatinine (0.55-1.02) mg/dL Est GFR (CKD-EPI 2020) (mL/min/1.73m2) Glucose (74-106) mg/dL Calcium (8.5-10.1) mg/dL Magnesium (1.8-2.4) mg/dL Total Bilirubin (0.2-1.0) mg/dL AST (15-37) U/L ALT (14-59) U/L Alkaline Phosphatase (46-116) U/L Cancelled Troponin I (<or=51) ng/L 5 NT-Pro-B Natriuret Pep (<300) pg/mL 638 H Total Protein (6.4-8.2) g/dL 7.3 Cancelled Albumin (3.4-5.0) g/dL 3.1 L Cancelled Urine Color (Yellow) Urine Clarity (Clear) Urine pH (5-8) Ur Specific [place] (1.005-1.025) Urine Protein (Neg-Trace) mg/dL Urine Ketones (Negative) mg/dL Urine Blood (Negative) Urine Nitrite (Negative) Urine Bilirubin (Negative) Urine Urobilinogen (Up to 0.2) mg/dL Ur Leukocyte Esterase (Negative) Urine RBC (0-2) HPF Urine WBC (0-5) HPF Ur Epithelial Cells (Negative) HPF Urine Crystals (Negative) HPF Urine Bacteria (Negative) HPF Urine Casts (Negative) LPF Urine Mucus (Negative) Urine Other (Negative) Ur Culture Indicated? Urine Glucose (Negative) mg/dL COVID-19 Source SARS-CoV-2 (PCR) (Negative) Influenza Type A (PCR) (Negative) Influenza Type B (PCR) (Negative) RSV (PCR) (Negative) Range/Units 07/18/24 07/18/24 07/18/24 16:32 17:08 17:31 WBC (4.4-10.8) 10^3/uL RBC (3.93-5.22) 10^6/uL Hgb (11.2-15.7) g/dL Hct (36.0-46.0) % MCV (80-95) fL MCH (27.0-33.0) pg MCHC (32.0-36.0) % RDW (11.7-14.6) % Plt Count (130-400) 10^3/uL MPV (8.0-11.0) fL Immature Gran % % Neutrophils % % Lymphocytes % % Monocytes % % Eosinophils % % Basophils % % Nucleated RBC % (0.0-0.3) % Absolute Neutrophils (1.2-6.7) 10^3/uL Absolute Lymphocytes (1.2-3.4) 10^3/uL Absolute Monocytes (0.1-0.8) 10^3/uL Absolute Eosinophils (0.0-0.7) 10^3/uL Absolute Basophils (0.0-0.2) 10^3/uL D-Dimer VBG pH (7.31-7.41) VBG pCO2 (41-51) mmHg VBG pO2 mmHg VBG HCO3 (23-28) mmol/L VBG Total CO2 (24-29) mmol/L VBG O2 Saturation % VBG Base Excess (-2-3) mmol/L Sodium (136-145) mmol/L Potassium (3.5-5.1) mmol/L Chloride (98-107) mmol/L Carbon Dioxide (21.0-32.0) mmol/L Anion Gap (3-11) mmol/L BUN (7-18) mg/dL Creatinine (0.55-1.02) mg/dL Est GFR (CKD-EPI 2020) (mL/min/1.73m2) Glucose (74-106) mg/dL Calcium (8.5-10.1) mg/dL Magnesium (1.8-2.4) mg/dL Total Bilirubin (0.2-1.0) mg/dL AST (15-37) U/L ALT (14-59) U/L Alkaline Phosphatase (46-116) U/L Troponin I (<or=51) ng/L 5 NT-Pro-B Natriuret Pep (<300) pg/mL Total Protein (6.4-8.2) g/dL Albumin (3.4-5.0) g/dL Urine Color (Yellow) Yellow Urine Clarity (Clear) Clear Urine pH (5-8) 5.5 Ur Specific [place] (1.005-1.025) 1.015 Urine Protein (Neg-Trace) mg/dL Negative Urine Ketones (Negative) mg/dL Negative Urine Blood (Negative) Negative Urine Nitrite (Negative) Negative Urine Bilirubin (Negative) Negative Urine Urobilinogen (Up to 0.2) mg/dL 0.2 Ur Leukocyte Esterase (Negative) Negative Urine RBC (0-2) HPF 0-2 Urine WBC (0-5) HPF 0-2 Ur Epithelial Cells (Negative) HPF Few Urine Crystals (Negative) HPF Negative Urine Bacteria (Negative) HPF Rare Urine Casts (Negative) LPF Negative Urine Mucus (Negative) Negative Urine Other (Negative) Negative Ur Culture Indicated? No Urine Glucose (Negative) mg/dL >=1000 H COVID-19 Source Nasopharynx SARS-CoV-2 (PCR) (Negative) Negative Influenza Type A (PCR) (Negative) Negative Influenza Type B (PCR) (Negative) Negative RSV (PCR) (Negative) Negative Range/Units 07/18/24 19:11 WBC (4.4-10.8) 10^3/uL RBC (3.93-5.22) 10^6/uL Hgb (11.2-15.7) g/dL Hct (36.0-46.0) % MCV (80-95) fL MCH (27.0-33.0) pg MCHC (32.0-36.0) % RDW (11.7-14.6) % Plt Count (130-400) 10^3/uL MPV (8.0-11.0) fL Immature Gran % % Neutrophils % % Lymphocytes % % Monocytes % % Eosinophils % % Basophils % % Nucleated RBC % (0.0-0.3) % Absolute Neutrophils (1.2-6.7) 10^3/uL Absolute Lymphocytes (1.2-3.4) 10^3/uL Absolute Monocytes (0.1-0.8) 10^3/uL Absolute Eosinophils (0.0-0.7) 10^3/uL Absolute Basophils (0.0-0.2) 10^3/uL D-Dimer VBG pH (7.31-7.41) VBG pCO2 (41-51) mmHg VBG pO2 mmHg VBG HCO3 (23-28) mmol/L VBG Total CO2 (24-29) mmol/L VBG O2 Saturation % VBG Base Excess (-2-3) mmol/L Sodium (136-145) mmol/L Potassium (3.5-5.1) mmol/L Chloride (98-107) mmol/L Carbon Dioxide (21.0-32.0) mmol/L Anion Gap (3-11) mmol/L BUN (7-18) mg/dL Creatinine (0.55-1.02) mg/dL Est GFR (CKD-EPI 2020) (mL/min/1.73m2) Glucose (74-106) mg/dL Calcium (8.5-10.1) mg/dL Magnesium (1.8-2.4) mg/dL Total Bilirubin (0.2-1.0) mg/dL AST (15-37) U/L ALT (14-59) U/L Alkaline Phosphatase (46-116) U/L Troponin I (<or=51) ng/L 6 NT-Pro-B Natriuret Pep (<300) pg/mL Total Protein (6.4-8.2) g/dL Albumin (3.4-5.0) g/dL Urine Color (Yellow) Urine Clarity (Clear) Urine pH (5-8) Ur Specific [place] (1.005-1.025) Urine Protein (Neg-Trace) mg/dL Urine Ketones (Negative) mg/dL Urine Blood (Negative) Urine Nitrite (Negative) Urine Bilirubin (Negative) Urine Urobilinogen (Up to 0.2) mg/dL Ur Leukocyte Esterase (Negative) Urine RBC (0-2) HPF Urine WBC (0-5) HPF Ur Epithelial Cells (Negative) HPF Urine Crystals (Negative) HPF Urine Bacteria (Negative) HPF Urine Casts (Negative) LPF Urine Mucus (Negative) Urine Other (Negative) Ur Culture Indicated? Urine Glucose (Negative) mg/dL COVID-19 Source SARS-CoV-2 (PCR) (Negative) Influenza Type A (PCR) (Negative) Influenza Type B (PCR) (Negative) RSV (PCR) (Negative) Medical Decision Making 43-year-old female presenting in no acute distress, alert and oriented, chest x- ray does not show evidence of acute abnormality per virtual radiology interpretation my review. X-ray looks improved from prior. BNP is also improved from 13 100-5 89. Patient has had 3 negative troponins, I did give a single dose of nitroglycerin and 40 mg of IV Lasix in addition to patient's 20 mg of p.o. Lasix and she has had 1500 cc of output feels marked improvement in first symptoms. At this time patient is requesting discharge home, she is ambulatory without hypoxia or dyspnea. I will place patient on 40 mg of Lasix a day and encouraged her to follow-up with her primary care physician at her scheduled appointment. She is given low threshold to return should she have new or worsening complaints. Of note I spent approximately 15 minutes reviewing patient's [facility] records including echocardiogram which showed preserved ejection fraction of 55%, CT coronary which did not show evidence of significant plaque abnormality with low risk from a cardiac standpoint per interpretation, CTA PE which was performed approximately 3 days prior to arrival today which did not show evidence of pulmonary embolism. I reviewed the discharge paperwork. See no clear indication for admission at this time. I did not supply patient with aspirin during the stay as she is allergic to this reportedly. Close outpatient reassessment is indicated, discharged home in stable condition with stable vitals Quality:SDOH Health Related Social Needs: No Data to Display PFSH All Active Problems (Updated 07/18/24 @ 20:39 by ALTA Hare) Diabetes (Chronic) CHF (congestive heart failure) (Chronic) Orthopnea (Acute) Edema of both lower legs (Acute) l>r .. chf? INACTIVITY? Myocardial infarction acute (Acute) Abrasion of cornea, right (Acute) Abdominal pain (Acute) Diabetic foot ulcer (Acute) Fatty infiltration of liver (Acute) Hx cirrhosis? 2' pancreatitis (05/2024)? Elevated troponin level not due myocardial infarction (Acute ~05/2024) ?type 2 ACS Acute postoperative abdominal pain (Acute) Diabetic ketoacidosis (Acute ~05/2024) Corneal abrasion (Acute) Obstructive sleep apnea of adult (Acute) [facility] 12/23/23 Muscle spasm of left lower extremity (Acute) Muscle spasm of back (Acute) Diabetic cataract of right eye (Acute) Ulcer of right foot limited to breakdown of skin (Acute 04/16/23) [facility] Ulcer of left foot, limited to breakdown of skin (Acute 04/16/23) [facility] Iron deficiency (Acute) 03/2023 iron studies indicating deficiency (NOT anemic) Migraine (Chronic) [facility] Chronic constipation (Chronic) [facility] Type 2 diabetes mellitus, with long-term current use of insulin (Chronic) With neuropathy & retinopathy (left, mild) Obesity (Chronic) Cirrhosis of liver (Chronic) [facility] Asthma (Chronic) Tobacco use disorder (Chronic) Started smoking age 9 Poorly controlled type 2 diabetes mellitus (Chronic 03/23/18) Polypharmacy (Chronic 12/14/15) Mild nonproliferative diabetic retinopathy associated with type 2 diabetes mellitus (Chronic 01/22/16) Mental health disorder (Chronic) Pt reports being diagnosed with bipolar disorder, disassociative disorder, anxiety, & multiple personality disorder Hypomagnesemia (Chronic 09/30/16) Hyperlipidemia (Chronic 09/30/16) 10-year ASCVD risk = unable to calculate due to not being age 40+ however dx T2DM, so Rx for statin 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 [facility] 2023: [facility] Depressive disorder (Chronic 10/31/14) ADMISSION SUICIDAL THOUGHTS 06/13/14 OD ATTEMPTS IN PAST Chronic nausea (Chronic) EGD 04/16/16 Dr. 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 Premature surgical menopause JAD/BSO in late 20s, no HRT Hepatitis C 02/14/2016 labwork: undetectable RNA level Surgical History S/P cholecystectomy (06/12/24) Dr Reyes Status post total hysterectomy and bilateral salpingo-oophorectomy (~2006) noncancerous reasons Status post left foot surgery (10/2022) Left fourth metatarsal head excision for chronic ulcer, osteomyelitis ([facility]/Tamia Vidales DPM) Status post section (~2003) EGD (04/16/16) Dr. Ferrer Family History Mother , 46yo due to kidney & liver failure due to alcohol Substance use disorder Alcohol use disorder Father , 62yo from ALS Substance use disorder Alcohol use disorder ALS (amyotrophic lateral sclerosis) Grandmother Colon cancer Paternal Paternal Uncle Cardiac arrest Substance use disorder Alcohol and Pain Medication Abuse Social History Smoking/Tobacco Use Status: Current every day Tobacco Type: cigarettes Smoking packs per day: 1 Smoking cigarettes per day: 20.0 Tobacco: How many years used: 33 Quit status: considering quitting Smoking risk assessment performed?: Yes Alcohol Intake: never Drug use: Occasionally Substance use type: former substance user and marijuana Details: Pt. 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 Pets and animals: Yes (1 dog, 4 cats) Pets and animals: cat(s) and dog(s) Sexually active: Yes Do you think of yourself as: straight/heterosexual Current gender identity: female Other: 09/2022: pt reports she is engaged What is your relationship status?: How often do you talk on the phone with friends or family?: three or more times per week How often do you get together with friends or relatives?: once per week How often do you attend jain or rastafarian services?: decline to answer Do you belong to any clubs or organized social groups?: no Panel score (0-1 are the most socially isolated patients): 2 What type of physical activity do you participate in: none Duration: decline to answer Frequency: decline to answer Seatbelt use: always Helmet use: No (No reason to wear one) Drive intox 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
== END 2024-07-18 20:52 | disposition home or self-care (01) ==
PROVIDERS: Emergency Provider Physician Assistant; PCP Nurse Practitioner Adult Health
DX: R06.00 Dyspnea, unspecified (principal); R73.9 Hyperglycemia, unspecified; N17.9 Acute kidney failure, unspecified
CPT/HCPCS: 36415; 80053; 82805; 87637; 93005; 94640; 96374; 96376; 99285; 71045; 81003; 81015; 83735; 83880; 84484; 85025; 85379; 93010; 99284; J1941; J7620

== ENCOUNTER 2024-07-25 14:23 | Emergency (ER) | payer OTHER, SELFPAY ==
[2024-07-25] VITALS (24 sets, daily range): BP systolic 115–153; BP diastolic 60–79; PULSE 65–78; RESP 7–18; TEMP 36.1; O2SAT 91–98
--- NOTE | 2024-07-25 14:15 | RT.EKG_ITS ---
APPROVED REPORT Exam: Resting ECG Reason for Exam: MARYCARMEN SILVA Patient Location: E HR:71 bpm ECG Measurements Heart Rate 71 AXIS WI 175 P 73 QRSd 88 QRS 8 QT 439 T -5 QTc 478 Conclusion Sinus rhythm. 71 normal axis no stemi
--- NOTE | 2024-07-25 14:30 | DI.RAD_ITS ---
Exam(s) XR PORTABLE CHEST AP EXAM: XR PORTABLE CHEST AP CLINICAL HISTORY: shorntess of breath TECHNIQUE: 2D digital imaging was performed. COMPARISON: CR,XR XR PORTABLE CHEST AP from 06/14/2024 CR XR CHEST 2V PA LATERAL from 07/07/2024 CR,XR XR PORTABLE CHEST AP from 07/18/2024 FINDINGS: Exam is limited by poor pulmonary inflation and under penetration. Monitoring leads overlie the ches t. LUNGS: No focal consolidation. No pleural abnormality seen. HEART: Mildly enlarged. Pulmonary vascular prominence. AORTA: Normal diameter. BONES: Unremarkable for age. Soft tissues: Unremarkable. IMPRESSION: Question of mild CHF. DATA REPOSITORY: RADIATION DOSE DELIVERED:
[2024-07-25] MEDS: nitroGLYcerin 0.4 MG TAB SL ×3 (14:49→15:12)
--- NOTE | 2024-07-25 14:56 | ED.GENADUL_ITS ---
Discharge Plan Disposition Patient Disposition: Home Discharge Details Clinical Impression: Chronic dyspnea, Acute hyperglycemia, AUGUSTINE (acute kidney injury) Primary Care Provider: Lorena Mann ED Provider: Ruchi Quick Home Meds and New Rx's Prescriptions: No Action albuterol sulfate 90 mcg/actuation HFA aerosol inhaler 1 - 2 puff Inhalation Q4-6H PRN Qty: 1 1RF Rx Instructions: DISPENSE ALBUTEROL INHALER BRAND COVERED BY INSURANCE metoclopramide HCl 10 mg tablet 10 mg PO TID PRN Rx Instructions: administer 30 minutes before meals ondansetron 8 mg tablet,disintegrating 8 mg PO BID PRN (Reason: nausea and vomiting) Qty: 60 11RF gabapentin 300 mg capsule 300 mg PO HS PRN (Reason: back pain) Qty: 60 0RF Gvoke HypoPen 2-Pack 1 mg/0.2 mL auto-injector 1 mg subcut ONCE Qty: 0.4 1RF Rx Instructions: HYPOGLYCEMIA; as a single dose; may repeat once after 15 minutes if no response methocarbamol 500 mg tablet 1,000 mg PO HS PRN (Reason: muscle spasm) Qty: 90 0RF Rx Instructions: Use lowest effective dose for shortest duration for muscle spasm ipratropium-albuterol 0.5 mg-3 mg(2.5 mg base)/3 mL solution for nebulization 3 ml inhalation QID PRN (Reason: wheezing) Qty: 180 1RF Rx Instructions: During asthma exacerbation, may use preventatively TID, titrating down to QID PRN as wheeze & SOB improve. fluticasone propion-salmeterol [Advair Diskus] 250-50 mcg/dose blister with device 1 inh inhalation BID Qty: 60 1RF Rx Instructions: Please use this during asthma exacerbations, wean off as shortness of breath & wheeze improve. atorvastatin 80 mg tablet 80 mg PO DAILY Qty: 90 3RF (DME) Dexcom G6 Sensor Device See Rx Instructions .ROUTE .COMPLEX Qty: 3 6RF Dose Instruction: USE DIRECTED Rx Instructions: USE DIRECTED methadone [Methadone Intensol] 10 mg/mL concentrate 77 mg PO DAILY alcohol swabs [Alcohol Pads] Pads, Medicated 1 pad Topical QID Qty: 400 3RF naloxone [Narcan] 4 mg/actuation spray,non-aerosol 4 mg intranasal Q2M PRN (Reason: opioid overdose) Qty: 2 0RF Rx Instructions: spray 1 dose into ONE nostril; alternate nostrils w each dose until help arrives (DME) Home Dialysis Plus G6 Transmitter Device See Rx Instructions .Route Qty: 3 3RF Rx Instructions: As directed pregabalin 200 mg capsule 200 mg PO TID Qty: 90 3RF metoprolol succinate 50 mg tablet extended release 24 hr 50 mg PO DAILY Qty: 30 1RF Rx Instructions: Trial lower dose (50+25=75mg) due to fatigue/SOB (on 100mg) (DME) foam pillow triangular See Rx Instructions .Route .MEDSUPPLY Qty: 1 0RF Rx Instructions: Trial sleeping & resting (legs need elevation) @ 30-40' angle to alleviate SOB/Panic acetaminophen 500 mg tablet 500 - 1,000 mg PO Q8H MDD 3000 mg PRN (Reason: fever or pain) Qty: 180 0RF Rx Instructions: 1 month supply (DME) pen needle, diabetic [BD Ultra-Fine Yamini Pen Needle] 32 gauge x 5/32 needle See Rx Instructions .ROUTE .COMPLEX Qty: 100 0RF Dose Instruction: USE TO ADMINISTER INSULIN ONCE DAILY Rx Instructions: USE TO ADMINISTER INSULIN ONCE DAILY (DME) blood-glucose meter Misc See Rx Instructions .Route Qty: 1 0RF Rx Instructions: One Touch meter (DME) lancets Misc See Rx Instructions .ROUTE .MEDSUPPLY Qty: 400 3RF Rx Instructions: As directed to check blood glucose four times daily. On insulin. Dispense one touch ultra insulin aspart U-100 [Novolog FlexPen U-100 Insulin] 100 unit/mL (3 mL) insulin pen 15 unit subcut AC Qty: 15 3RF Rx Instructions: 10-15 units sliding scale before meals valacyclovir 500 mg tablet 500 mg PO DAILY Qty: 90 3RF (DME) Blood Glucose Test Strip See Rx Instructions .MEDSUPPLY Qty: 400 3RF Rx Instructions: As directed to check blood glucose four times daily. On insulin. Dispense one touch ultra magnesium oxide 400 mg (241.3 mg magnesium) tablet 400 mg PO BID Qty: 180 0RF omeprazole 40 mg capsule,delayed release(DR/EC) 40 mg PO DAILY Qty: 90 3RF nystatin 100,000 unit/gram powder 1 applic Topical BID PRN (Reason: fungal skin infection) Qty: 30 3RF Rx Instructions: Apply powder to affected area under R breast twice daily lorazepam 0.5 mg tablet See Rx Instructions PO DAILY PRN (Reason: dyspnea) Qty: 14 0RF Rx Instructions: Short term increase to BID PRN panic or shortness of breath orally daily PRN; (FYI to Prescriber @ [facility]) insulin degludec [Tresiba FlexTouch U-100] 100 unit/mL (3 mL) insulin pen 30 unit subcut DAILY Patient Comments: takes more than rx'd due to blood sugars being high Rx Instructions: 07/13/2024 PER [facility] decrease to 30 units losartan 25 mg tablet 25 mg PO DAILY spironolactone 25 mg tablet 25 mg PO DAILY clonidine HCl 0.2 mg tablet 0.2 mg PO HS Patient Comments: TAKE 1 TABLET BY MOUTH EVERY NIGHT AT BEDTIME mirtazapine 15 mg tablet 15 mg PO HS Ajovy Autoinjector 225 mg/1.5 mL auto-injector 225 mg subcut QMONTH Botox 100 unit recon soln 300 unit IM ONCE Rx Instructions: divided among affected muscles lurasidone 80 mg tablet 80 mg PO DAILY Patient Comments: TAKE ONE TABLET BY MOUTH EVERY DAY WITH AT LEAST 350 CALORIES ketorolac 10 mg tablet 10 mg PO Q8H PRN (Reason: pain) Qty: 30 0RF Rx Instructions: maximum total duration of 5 days from all oral, intranasal, or parenteral formulations metoprolol succinate 25 mg tablet extended release 24 hr 100 mg PO DAILY furosemide [Lasix] 40 mg tablet 40 mg PO DAILY Qty: 14 0RF magnesium 250 mg tablet 250 mg PO DAILY Qty: 14 0RF Discharge Instructions Additional Instructions: * your blood sugar is very elevated. please watch your diet and make sure you are taking your medicines * please keep a log of blood sugar for your doctor to review * you have a mild increase in your kidney function, please only take the lasix as prescribe. don't take additional doses * you should have your kidney function repeated. your appointment with your Dr at [facility] is on Aug 03. * if you have sustained low oxygen levels or are noticing decreased urine output, not tolerating liquids due to vomiting, please return to the emergency department HPI General Date/Time Provider Initiated Documentation: 07/25/24 14:25 . Limitations to Documentation: no limitations . Information obtained by: patient and old records reviewed . HPI Narrative: 43-year-old female with past medical history including HFpEF, diabetes, chronic tobacco abuse, bipolar disorder presents for evaluation of chest pain and shortness of breath. She states that the symptoms have been present and constant all day. Wax and wanes in severity. She reports that when she gets short of breath her oxygen level is noted to be in the 80s at home. She states that she has a history of heart attacks and stent. She reports that she is still smoking. She reports compliance with her medications. Related Data Home Medications ?Medication ?Instructions ?Recorded ?Confirmed acetaminophen 500 mg tablet 500 - 1,000 mg (1 - 2 x 500 mg) PO 09/24/19 07/25/24 Q8H PRN fever or pain #180 tab-caps alcohol swabs (Alcohol Pads) 1 pad topical QID #400 ea 10/25/22 07/25/24 pen needle, diabetic 32 gauge x #100 ea 06/30/23 07/25/24 (BD Ultra-Fine Yamini Pen Needle) blood-glucose meter #1 ea 08/28/23 07/25/24 lancets #400 ea 08/28/23 07/25/24 clonidine HCl 0.2 mg tablet 0.2 mg PO HS 11/21/23 07/25/24 insulin aspart U-100 100 unit/mL 15 unit (0.15 mL) subcut AC #15 mL 01/05/24 07/25/24 (3 mL) subcutaneous pen (Novolog FlexPen U-100 Insulin aspart) naloxone 4 mg/actuation nasal 4 mg intranasal Q2M PRN opioid 02/13/24 07/25/24 spray (Narcan) overdose #2 ea 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 04/12/24 07/25/24 #90 tab-caps blood sugar diagnostic (Blood #400 ea 04/26/24 07/25/24 Glucose Test strips) magnesium oxide 400 mg (241.3 mg 400 mg PO BID #180 tabs 04/26/24 07/25/24 magnesium) tablet mirtazapine 15 mg tablet 15 mg PO HS 05/03/24 07/25/24 omeprazole 40 mg capsule,delayed 40 mg PO DAILY #90 caps 05/20/24 07/25/24 release nystatin 100,000 unit/gram topical 1 applic topical BID PRN fungal 05/25/24 07/25/24 powder skin infection #30 grams albuterol sulfate 90 mcg/actuation 1 - 2 puff inhalation Q4-6H PRN ##1 05/31/24 07/25/24 aerosol inhaler fluticasone 250 mcg-salmeterol 50 1 inh inhalation BID #60 ea 05/31/24 07/25/24 mcg/dose blistr powdr for inhalation (Advair Diskus) gabapentin 300 mg capsule 300 mg PO HS PRN back pain #60 caps 05/31/24 07/25/24 glucagon 1 mg/0.2 mL subcutaneous 1 mg (0.2 mL) subcut ONCE #0.4 mL 05/31/24 07/25/24 auto-injector (Randal Espinozaen 2-Pack) ipratropium 0.5 mg-albuterol 3 mg 3 ml inhalation QID PRN wheezing 05/31/24 07/25/24 (2.5 mg base)/3 mL nebulization #180 mL soln methocarbamol 500 mg tablet 1,000 mg (2 x 500 mg) PO HS PRN 05/31/24 07/25/24 muscle spasm #90 tabs metoclopramide HCl 10 mg tablet 10 mg PO TID PRN 05/31/24 07/25/24 ondansetron 8 mg disintegrating 8 mg PO BID PRN nausea and 05/31/24 07/25/24 tablet vomiting #60 tabs fremanezumab-vfrm 225 mg/1.5 mL 225 mg subcut QMONTH 06/07/24 07/25/24 subcutaneous auto-injector (Ajovy) onabotulinumtoxinA 100 unit 300 unit IM ONCE 06/07/24 07/25/24 solution for injection (Botox) lurasidone 80 mg tablet 80 mg PO DAILY 06/08/24 07/25/24 atorvastatin 80 mg tablet 80 mg PO DAILY #90 tabs 06/23/24 07/25/24 blood-glucose sensor (Dexcom G6 #3 ea 06/23/24 07/25/24 Sensor device) methadone 10 mg/mL oral 77 mg PO DAILY 06/23/24 07/25/24 concentrate (Methadone Intensol) ketorolac 10 mg tablet 10 mg PO Q8H PRN pain #30 tabs 06/29/24 07/25/24 blood-glucose transmitter (Dexcom #3 ea 07/07/24 07/25/24 G6 Transmitter device) foam pillow #1 ea 07/07/24 07/25/24 metoprolol succinate 50 mg 50 mg PO DAILY recent KS #30 tabs 07/07/24 07/25/24 tablet,extended release 24 hr pregabalin 200 mg capsule 200 mg PO TID #90 caps 07/07/24 07/25/24 lorazepam 0.5 mg tablet See Rx Instructions PO DAILY PRN 07/08/24 07/25/24 dyspnea #14 tabs insulin degludec 100 unit/mL (3 30 unit subcut DAILY 07/13/24 07/25/24 mL) subcutaneous pen (Tresiba FlexTouch U-100 insulin) losartan 25 mg tablet 25 mg PO DAILY 07/14/24 07/25/24 spironolactone 25 mg tablet 25 mg PO DAILY 07/14/24 07/25/24 furosemide 40 mg tablet (Lasix) 40 mg PO DAILY #14 tabs 07/18/24 07/25/24 magnesium 250 mg tablet 250 mg PO DAILY #14 tabs 07/18/24 07/25/24 metoprolol succinate 25 mg 100 mg PO DAILY 07/18/24 07/25/24 tablet,extended release 24 hr Previous Rx's ?Medication ?Instructions ?Recorded acetaminophen 500 mg tablet 500 - 1,000 mg (1 - 2 x 500 mg) PO 09/24/19 Q8H PRN fever or pain #180 tab-caps alcohol swabs (Alcohol Pads) 1 pad topical QID #400 ea 10/25/22 pen needle, diabetic 32 gauge x #100 ea 06/30/2332 (BD Ultra-Fine Yamini Pen Needle) blood-glucose meter #1 ea 08/28/23 lancets #400 ea 08/28/23 insulin aspart U-100 100 unit/mL 15 unit (0.15 mL) subcut AC #15 mL 01/05/24 (3 mL) subcutaneous pen (Novolog FlexPen U-100 Insulin aspart) naloxone 4 mg/actuation nasal 4 mg intranasal Q2M PRN opioid 02/13/24 spray (Narcan) overdose #2 ea 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 04/12/24 #90 tab-caps blood sugar diagnostic (Blood #400 ea 04/26/24 Glucose Test strips) magnesium oxide 400 mg (241.3 mg 400 mg PO BID #180 tabs 04/26/24 magnesium) tablet omeprazole 40 mg capsule,delayed 40 mg PO DAILY #90 caps 05/20/24 release nystatin 100,000 unit/gram topical 1 applic topical BID PRN fungal 05/25/24 powder skin infection #30 grams albuterol sulfate 90 mcg/actuation 1 - 2 puff inhalation Q4-6H PRN ##1 05/31/24 aerosol inhaler fluticasone 250 mcg-salmeterol 50 1 inh inhalation BID #60 ea 05/31/24 mcg/dose blistr powdr for inhalation (Advair Diskus) gabapentin 300 mg capsule 300 mg PO HS PRN back pain #60 caps 05/31/24 glucagon 1 mg/0.2 mL subcutaneous 1 mg (0.2 mL) subcut ONCE #0.4 mL 05/31/24 auto-injector ([employer] HypoPen 2-Pack) ipratropium 0.5 mg-albuterol 3 mg 3 ml inhalation QID PRN wheezing 05/31/24 (2.5 mg base)/3 mL nebulization #180 mL soln methocarbamol 500 mg tablet 1,000 mg (2 x 500 mg) PO HS PRN 05/31/24 muscle spasm #90 tabs ondansetron 8 mg disintegrating 8 mg PO BID PRN nausea and 05/31/24 tablet vomiting #60 tabs atorvastatin 80 mg tablet 80 mg PO DAILY #90 tabs 06/23/24 blood-glucose sensor (Dexcom G6 #3 ea 06/23/24 Sensor device) ketorolac 10 mg tablet 10 mg PO Q8H PRN pain #30 tabs 06/29/24 blood-glucose transmitter (Dexcom #3 ea 07/07/24 G6 Transmitter device) foam pillow #1 ea 07/07/24 metoprolol succinate 50 mg 50 mg PO DAILY recent KS #30 tabs 07/07/24 tablet,extended release 24 hr pregabalin 200 mg capsule 200 mg PO TID #90 caps 07/07/24 lorazepam 0.5 mg tablet See Rx Instructions PO DAILY PRN 07/08/24 dyspnea #14 tabs furosemide 40 mg tablet (Lasix) 40 mg PO DAILY #14 tabs 07/18/24 magnesium 250 mg tablet 250 mg PO DAILY #14 tabs 07/18/24 Allergies Allergy/AdvReac Type Severity Reaction Status Date / Time Penicillins Allergy Severe lip and Verified 07/25/24 14:30 facial swelling lamotrigine (From Lamictal) Allergy Unknown Skin Rash Verified 07/25/24 14:30 clindamycin AdvReac Severe Nausea & Verified 07/25/24 14:30 vomiting aspirin AdvReac Intermediate nausea/pain Verified 07/25/24 14:30 General Stated Complaint: Chest Pain CARLOS: 2 Exam Narrative Exam Narrative: Review of Systems: All systems reviewed & are unremarkable except as noted in HPI and below Well-developed, no acute distress, smells strongly of cigarette smoke NCAT RRR no murmur no dysrhythmia Unlabored respiratory effort, no hypoxia or tachypnea, there is clear breath sounds bilaterally without any crackles Nondistended abdomen soft nontender Extremities w/o edema no focal neurologic deficits Flat affect Course Vital Signs Vital signs: Vital Signs Pulse 78 07/25/24 14:27 Respiratory Rate 16 07/25/24 14:27 Pulse Oximetry 98 07/25/24 14:27 Pulse 78 07/25/24 14:27 Respiratory Rate 16 07/25/24 14:27 Respiratory Effort Normal 07/25/24 14:29 Pulse Oximetry 98 07/25/24 14:27 Pain Level 9 07/25/24 14:27 Medical Decision Making Emergent evaluation of chest pain and shortness of breath. The patient does have history of HFpEF. Her recent coronary CTA 07/12 at [facility] did not have any arthrosclerotic plaque. The patient has also not had any stents. It is unclear if she has ever had an KS. Her EKG was reviewed and independently interpreted: Sinus 71, no acute ischemic changes, no STEMI. Initial differential includes hyperglycemia, DKA, doubt CHF given the lack of volume overload signs. Unlikely to be cardiac etiology of chest pain given her history. Will get lab work including serial troponins and chest x-ray. On my arrival to the room, the patient became very angry and agitated and said that she was not happy to see me because I discharged her with hypoxia and she had to go to [facility] be admitted for her heart attack, heart failure and get stents at that time. Unfortunately the patient does seem to be mistaken regarding this course of events and this is just blatantly false. I have reviewed her medical record and noted multiple visits over the last month. 9 - 22 admitted at [facility] for gallstone pancreatitis 9 23- 27 admitted at [facility] for DKA 10 8 [facility] ED eval for foot ulcer 1014 [facility] ED evaluation for abdominal pain 1016 PCP clinic appointment 10 observation admission at [facility] 10 25 observation admission at [facility] 1027 [facility] ED evalatuion 1029 [facility] ED evaluation for shortness of breath 1515 Lab work reviewed. Mild leukocytosis at 12. No anemia. Patient is very hyperglycemic. pH is 7.3 . She does have significant amount of glucose in her urine, but negative for ketones. so I doubt DKA CO2 is slightly elevated at 66. Which is slightly higher than the patient's baseline though I do suspect she is a chronic CO2 retainer. As she does appear to be compensated. . 1635 Remainder of lab work reviewed. The patient has mild elevation in BUN and creatinine, likely secondary to overdiuresis. Her delta troponins have been flat. Her BNP is slightly elevated at 1053. But her chest x-ray today is not significantly changed from her last chest x-ray in the [facility] system. She was ambulated around the emergency department and did not have desaturation. Her lowest oxygenation saturation was 93%. She was given IV insulin for her hyperglycemia. Based on my review of her medical records at [facility], I suspect her AUGUSTINE is likely secondary to not adhering to her Lasix regimen at home. I suspect that her chest pain and shortness of breath are more chronic pain issues, persistent dyspnea due to some underlying COPD, possible LESLIE, persistent tobacco abuse, obesity. She did have a recent CTA to rule out pulmonary embolism at [facility] and this was also negative. At this time she is saying that she feels very anxious when she falls asleep because she feels like she cannot breathe and she usually takes Ativan for this at home. A 0.5 mg dose of lorazepam was provided to the patient. She has been referred for sleep study. At this time there is no indication for hospital admission. I do recommend close monitoring of these ongoing symptoms and return precautions were advised. She has appt with PCP at [facility] on 08/03. I recommend that she get a repeat renal fu nction test at that time. All questions answered, comfortable going home. Quality:SDOH Health Related Social Needs: No Data to Display PFSH All Active Problems (Updated 07/25/24 @ 16:52 by Ruchi Quick MD) AUGUSTINE (acute kidney injury) (Acute) Acute hyperglycemia (Acute) Chronic dyspnea (Acute) Diabetes (Chronic) CHF (congestive heart failure) (Chronic) Orthopnea (Acute) Edema of both lower legs (Acute) l>r .. chf? INACTIVITY? Myocardial infarction acute (Acute) Abrasion of cornea, right (Acute) Abdominal pain (Acute) Diabetic foot ulcer (Acute) Fatty infiltration of liver (Acute) Hx cirrhosis? 2' pancreatitis (05/2024)? Elevated troponin level not due myocardial infarction (Acute ~05/2024) ?type 2 ACS Acute postoperative abdominal pain (Acute) Diabetic ketoacidosis (Acute ~05/2024) Corneal abrasion (Acute) Obstructive sleep apnea of adult (Acute) [facility] 12/23/23 Muscle spasm of left lower extremity (Acute) Muscle spasm of back (Acute) Diabetic cataract of right eye (Acute) Ulcer of right foot limited to breakdown of skin (Acute 04/16/23) [facility] Ulcer of left foot, limited to breakdown of skin (Acute 04/16/23) [facility] Iron deficiency (Acute) 03/2023 iron studies indicating deficiency (NOT anemic) Migraine (Chronic) [facility] Chronic constipation (Chronic) [facility] Type 2 diabetes mellitus, with long-term current use of insulin (Chronic) With neuropathy & retinopathy (left, mild) Obesity (Chronic) Cirrhosis of liver (Chronic) [facility] Asthma (Chronic) Tobacco use disorder (Chronic) Started smoking age 9 Poorly controlled type 2 diabetes mellitus (Chronic 03/23/18) Polypharmacy (Chronic 12/14/15) Mild nonproliferative diabetic retinopathy associated with type 2 diabetes mellitus (Chronic 01/22/16) Mental health disorder (Chronic) Pt reports being diagnosed with bipolar disorder, disassociative disorder, anxiety, & multiple personality disorder Hypomagnesemia (Chronic 09/30/16) Hyperlipidemia (Chronic 09/30/16) 10-year ASCVD risk = unable to calculate due to not being age 40+ however dx T2DM, so Rx for statin 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 Jimenez [facility] 2023: [facility] Depressive disorder (Chronic 10/31/14) ADMISSION SUICIDAL THOUGHTS 06/13/14 OD ATTEMPTS IN PAST Chronic nausea (Chronic) EGD 04/16/16 Dr. 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) Medical History DKA (diabetic ketoacidosis) Acute gallstone pancreatitis Acute pancreatitis Opioid use disorder MAT with methadone Chronic fatigue (07/19/15) Osteomyelitis Dyspareunia in female (07/09/17) Punctate keratitis of both eyes Ulcer of foot due to secondary diabetes Umbilical hernia (03/11/18) 03/17/2018: [facility] Premature surgical menopause JAD/BSO in late 20s, no HRT Hepatitis C 02/14/2016 labwork: undetectable RNA level Surgical History S/P cholecystectomy (06/12/24) Dr Reyes Status post total hysterectomy and bilateral salpingo-oophorectomy (~2006) noncancerous reasons Status post left foot surgery (10/2022) Left fourth metatarsal head excision for chronic ulcer, osteomyelitis ([facility]/Tamia Vidales DPM) Status post section (~2003) EGD (04/16/16) Dr. Ferrer Family History Mother , 46yo due to kidney & liver failure due to alcohol Substance use disorder Alcohol use disorder Father , 62yo from ALS Substance use disorder Alcohol use disorder ALS (amyotrophic lateral sclerosis) Grandmother Colon cancer Paternal Paternal Uncle Cardiac arrest Substance use disorder Alcohol and Pain Medication Abuse Social History Smoking/Tobacco Use Status: Current every day Tobacco Type: cigarettes Smoking packs per day: 1 Smoking cigarettes per day: 20.0 Tobacco: How many years used: 33 Quit status: considering quitting Smoking risk assessment performed?: Yes Alcohol Intake: never Drug use: Occasionally Substance use type: former substance user and marijuana Details: Pt. 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 Pets and animals: Yes (1 dog, 4 cats) Pets and animals: cat(s) and dog(s) Sexually active: Yes Do you think of yourself as: straight/heterosexual Current gender identity: female Other: 09/2022: pt reports she is engaged What is your relationship status?: How often do you talk on the phone with friends or family?: three or more times per week How often do you get together with friends or relatives?: once per week How often do you attend sabianism or evangelical services?: decline to answer Do you belong to any clubs or organized social groups?: no Panel score (0-1 are the most socially isolated patients): 2 What type of physical activity do you participate in: none Duration: decline to answer Frequency: decline to answer Seatbelt use: always Helmet use: No (No reason to wear one) Drive intox or ride w/intox bobtail 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
[2024-07-25 15:01] LABS: Abs Immature Grans 0.06 10^3/uL (0.0-0.06); Absolute Basophil Count 0.06 10^3/uL (0.0-0.2); Absolute Lymphocyte Count 3.01 10^3/uL (1.2-3.4); BE (Venous) 8 mmol/L (-2-3); Basophils % 0.5 %; Eosinophils % 1.1 %; HCO3 (Venous) 34 mmol/L (23-28); HCT 42.8 % (36.0-46.0); HGB 13.1 g/dL (11.2-15.7); Immature Grans % 0.5 %; Lymphocytes % 24.6 %; MCH 24.5 pg (27.0-33.0); MCHC 30.6 % (32.0-36.0); MCV 80 fL (80-95); MPV 11.9 fL (8.0-11.0); Monocytes % 5.7 %; Neutrophils % 67.6 %; O2 Sat (Venous) 49 %; Platelet Count 272 10^3/uL (130-400); RBC 5.35 10^6/uL (3.93-5.22); RDW 16.5 % (11.7-14.6); RDW-SD 47.7 fL; TCO2 (Venous) 32 mmol/L (24-29); WBC 12.23 10^3/uL (4.4-10.8); pH (Venous) 7.32 (7.31-7.41); pO2 (Venous) 24 mmHg
[2024-07-25 15:03] LABS: Absolute Eosinophil Count 0.13 10^3/uL (0.0-0.7); Absolute Neutrophil Count 8.27 10^3/uL (1.2-6.7)
[2024-07-25 15:04] LABS: pCO2 (Venous) 66 mmHg (41-51)
[2024-07-25 15:10] LABS: Bilirubin Negative (Negative); Blood Negative (Negative); Clarity Clear (Clear); Glucose >=1000 mg/dL (Negative); Ketones Negative (Negative); Leukocyte Esterase Negative (Negative); Nitrite Negative (Negative); Urobilinogen 0.2 mg/dL (Up to 0.2); pH 5.5 (5-8)
[2024-07-25 15:18] LABS: Bacteria Negative HPF (Negative); C & S Indicated? No; Casts Negative LPF (Negative); Crystals Negative HPF (Negative); Epithelial Cells Rare HPF (Negative); Mucus Negative (Negative); RBC 0-2 HPF (0-2); WBC 0-2 HPF (0-5)
[2024-07-25 15:27] LABS: ALT 26 U/L (14-59); AST 32 U/L (15-37); Albumin 3.5 g/dL (3.4-5.0); Alkaline Phosphatase 214 U/L (46-116); Anion Gap 6.8 mmol/L (3-11); BUN 28 mg/dL (7-18); Bilirubin, Total 0.34 mg/dL (0.2-1.0); CO2 33.2 mmol/L (21.0-32.0); CREATININE 1.2 mg/dL (0.55-1.02); Calcium 9.7 mg/dL (8.5-10.1); Chloride 95 mmol/L (98-107); Estimated GFR 56.89 (mL/min/1.73m2); Magnesium 1.8 mg/dL (1.8-2.4); NT-proBNP 1053 pg/mL (<300); Potassium 4.9 mmol/L (3.5-5.1); Sodium 135 mmol/L (136-145); Troponin I 6 ng/L (<or=51)
[2024-07-25 15:30] LABS: Glucose 567 mg/dL (74-106)
--- NOTE | 2024-07-25 15:32 | DI.VRAD_ITS ---
PROCEDURE INFORMATION: Exam: XR Chest Exam date and time: 07/25/2024 2:53 PM Age: 43 years old Clinical indication: Shortness of breath TECHNIQUE: Imaging protocol: Radiologic exam of the chest. Views: 1 view. Other technique: Portable exam. COMPARISON: CR XR PORTABLE CHEST AP 07/18/2024 4:31 PM FINDINGS: Lungs: The pulmonary vascularity appears prominent compared to prior exam. Pleural spaces: Unremarkable. No pleural effusion. No pneumothorax. Heart/Mediastinum: Mild cardiomegaly unchanged. Bones/joints: Unremarkable. IMPRESSION: Concern for mild congestive heart failure. Dictated and Authenticated by: Margret Quezada MD. Ordering:[facility] Abdelrahman Johns MD
[2024-07-25 15:51] LABS: Troponin I 6 ng/L (<or=51)
[2024-07-25] MEDS: Acetaminophen 500 MG TAB 1000 MG PO (16:02)
[2024-07-25] MEDS: Insulin REGULAR-Human 100 UNITS/ML UNIT 10 UNITS IV (16:04)
[2024-07-25] MEDS: LORazepam 0.5 MG TAB PO (16:37)
== END 2024-07-25 17:18 | disposition home or self-care (01) ==
PROVIDERS: Emergency Provider Emergency Medicine; PCP Nurse Practitioner Adult Health
DX: R06.00 Dyspnea, unspecified (principal); R73.9 Hyperglycemia, unspecified; N17.9 Acute kidney failure, unspecified; D72.829 Elevated white blood cell count, unspecified
CPT/HCPCS: 36416; 80053; 82805; 82962; 93005; 96374; 99285; 71045; 81003; 81015; 83735; 83880; 84484; 85025; 93010; 99284; J1815

== ENCOUNTER 2024-07-26 18:18 | Emergency (ER) | payer OTHER, SELFPAY ==
--- NOTE | 2024-07-26 18:15 | RT.EKG_ITS ---
APPROVED REPORT Exam: Resting ECG Reason for Exam: Chest pain Patient Location: E HR:78 bpm ECG Measurements Heart Rate 78 AXIS IL 188 P 40 QRSd 91 QRS 22 QT [id number] T 42 QTc 0 Conclusion Sinus rhythm...normal P axis, V-rate 60- 99 Probable left atrial enlargement...P >50mS, <-0.10mV V1 Consider anterior infarct...Q >30mS in V2-V5 ST elevation, consider inferior injury...ST >0.08mV, II III aVF
[2024-07-26 18:19] VITALS: BP 120/77; PULSE 84; RESP 16; TEMP 36.8; O2SAT 95
--- NOTE | 2024-07-26 18:48 | ED.GENADUL_ITS ---
Discharge Plan Disposition Patient Disposition: Home Condition: Stable Discharge Details Clinical Impression: Acute hyperglycemia Primary Care Provider: Lorena Mann ED Provider: Hussain Espinal Home Meds and New Rx's Prescriptions: Continued albuterol sulfate 90 mcg/actuation HFA aerosol inhaler 1 - 2 puff Inhalation Q4-6H PRN Qty: 1 1RF Rx Instructions: DISPENSE ALBUTEROL INHALER BRAND COVERED BY INSURANCE metoclopramide HCl 10 mg tablet 10 mg PO TID PRN Rx Instructions: administer 30 minutes before meals ondansetron 8 mg tablet,disintegrating 8 mg PO BID PRN (Reason: nausea and vomiting) Qty: 60 11RF gabapentin 300 mg capsule 300 mg PO HS PRN (Reason: back pain) Qty: 60 0RF Gvoke HypoPen 2-Pack 1 mg/0.2 mL auto-injector 1 mg subcut ONCE Qty: 0.4 1RF Rx Instructions: HYPOGLYCEMIA; as a single dose; may repeat once after 15 minutes if no response methocarbamol 500 mg tablet 1,000 mg PO HS PRN (Reason: muscle spasm) Qty: 90 0RF Rx Instructions: Use lowest effective dose for shortest duration for muscle spasm ipratropium-albuterol 0.5 mg-3 mg(2.5 mg base)/3 mL solution for nebulization 3 ml inhalation QID PRN (Reason: wheezing) Qty: 180 1RF Rx Instructions: During asthma exacerbation, may use preventatively TID, titrating down to QID PRN as wheeze & SOB improve. fluticasone propion-salmeterol [Advair Diskus] 250-50 mcg/dose blister with device 1 inh inhalation BID Qty: 60 1RF Rx Instructions: Please use this during asthma exacerbations, wean off as shortness of breath & wheeze improve. atorvastatin 80 mg tablet 80 mg PO DAILY Qty: 90 3RF (DME) Dexcom G6 Sensor Device See Rx Instructions .ROUTE .COMPLEX Qty: 3 6RF Dose Instruction: USE DIRECTED Rx Instructions: USE DIRECTED methadone [Methadone Intensol] 10 mg/mL concentrate 77 mg PO DAILY alcohol swabs [Alcohol Pads] Pads, Medicated 1 pad Topical QID Qty: 400 3RF naloxone [Narcan] 4 mg/actuation spray,non-aerosol 4 mg intranasal Q2M PRN (Reason: opioid overdose) Qty: 2 0RF Rx Instructions: spray 1 dose into ONE nostril; alternate nostrils w each dose until help arri ves ([facility]) Dexcom G6 Transmitter Device See Rx Instructions .Route Qty: 3 3RF Rx Instructions: As directed pregabalin 200 mg capsule 200 mg PO TID Qty: 90 3RF metoprolol succinate 50 mg tablet extended release 24 hr 50 mg PO DAILY Qty: 30 1RF Rx Instructions: Trial lower dose (50+25=75mg) due to fatigue/SOB (on 100mg) (DME) foam pillow triangular See Rx Instructions .Route .MEDSUPPLY Qty: 1 0RF Rx Instructions: Trial sleeping & resting (legs need elevation) @ 30-40' angle to alleviate SOB/Panic acetaminophen 500 mg tablet 500 - 1,000 mg PO Q8H MDD 3000 mg PRN (Reason: fever or pain) Qty: 180 0RF Rx Instructions: 1 month supply ([facility]) pen needle, diabetic [BD Ultra-Fine Yamini Pen Needle] 32 gauge x 5/32 needle See Rx Instructions .ROUTE .COMPLEX Qty: 100 0RF Dose Instruction: USE TO ADMINISTER INSULIN ONCE DAILY Rx Instructions: USE TO ADMINISTER INSULIN ONCE DAILY ([facility]) blood-glucose meter Misc See Rx Instructions .Route Qty: 1 0RF Rx Instructions: One Touch meter ([facility]) lancets Misc See Rx Instructions .ROUTE .MEDSUPPLY Qty: 400 3RF Rx Instructions: As directed to check blood glucose four times daily. On insulin. Dispense one touch ultra insulin aspart U-100 [Novolog FlexPen U-100 Insulin] 100 unit/mL (3 mL) insulin pen 15 unit subcut AC Qty: 15 3RF Rx Instructions: 10-15 units sliding scale before meals valacyclovir 500 mg tablet 500 mg PO DAILY Qty: 90 3RF (DME) Blood Glucose Test Strip See Rx Instructions .MEDSUPPLY Qty: 400 3RF Rx Instructions: As directed to check blood glucose four times daily. On insulin. Dispense one touch ultra magnesium oxide 400 mg (241.3 mg magnesium) tablet 400 mg PO BID Qty: 180 0RF omeprazole 40 mg capsule,delayed release(DR/EC) 40 mg PO DAILY Qty: 90 3RF nystatin 100,000 unit/gram powder 1 applic Topical BID PRN (Reason: fungal skin infection) Qty: 30 3RF Rx Instructions: Apply powder to affected area under R breast twice daily lorazepam 0.5 mg tablet See Rx Instructions PO DAILY PRN (Reason: dyspnea) Qty: 14 0RF Rx Instructions: Short term increase to BID PRN panic or shortness of breath orally daily PRN; (FYI to Prescriber @ [facility]) insulin degludec [Tresiba FlexTouch U-100] 100 unit/mL (3 mL) insulin pen 30 unit subcut DAILY Patient Comments: takes more than rx'd due to blood sugars being high Rx Instructions: 07/13/2024 PER [facility] decrease to 30 units losartan 25 mg tablet 25 mg PO DAILY spironolactone 25 mg tablet 25 mg PO DAILY clonidine HCl 0.2 mg tablet 0.2 mg PO HS Patient Comments: TAKE 1 TABLET BY MOUTH EVERY NIGHT AT BEDTIME mirtazapine 15 mg tablet 15 mg PO HS Ajovy Autoinjector 225 mg/1.5 mL auto-injector 225 mg subcut QMONTH Botox 100 unit recon soln 300 unit IM ONCE Rx Instructions: divided among affected muscles lurasidone 80 mg tablet 80 mg PO DAILY Patient Comments: TAKE ONE TABLET BY MOUTH EVERY DAY WITH AT LEAST 350 CALORIES ketorolac 10 mg tablet 10 mg PO Q8H PRN (Reason: pain) Qty: 30 0RF Rx Instructions: maximum total duration of 5 days from all oral, intranasal, or parenteral formulations metoprolol succinate 25 mg tablet extended release 24 hr 100 mg PO DAILY furosemide [Lasix] 40 mg tablet 40 mg PO DAILY Qty: 14 0RF magnesium 250 mg tablet 250 mg PO DAILY Qty: 14 0RF Discharge Instructions Additional Instructions: He may want to check your blood sugars more often and give extra doses of your sliding scale insulin. Follow-up with your primary care provider If you feel more ill or have new symptoms such as high fevers return to the emergency department for reevaluation. HPI General Mode of arrival: ambulatory . Date/Time Provider Initiated Documentation: 07/26/24 18:19 . Limitations to Documentation: no limitations . Information obtained by: patient . History of Present Illness 43 year old F presents to the emergency department with the chief complaint of high blood sugars, described as moderate, Patient started experiencing this day(s) (2) and it has been constant. No relieving factors improve symptom(s), No exacerbating factors reported . Patient notes chest pain and shortness of breath; denies fever/chills. Patient did receive the following treatments prior to arrival, none Related Data Home Medications ?Medication ?Instructions ?Recorded ?Confirmed acetaminophen 500 mg tablet 500 - 1,000 mg (1 - 2 x 500 mg) PO 09/24/19 07/25/24 Q8H PRN fever or pain #180 tab-caps alcohol swabs (Alcohol Pads) 1 pad topical QID #400 ea 10/25/22 07/25/24 pen needle, diabetic 32 gauge x #100 ea 06/30/23 07/25/24/32 (BD Ultra-Fine Yamini Pen Needle) blood-glucose meter #1 ea 08/28/23 07/25/24 lancets #400 ea 08/28/23 07/25/24 clonidine HCl 0.2 mg tablet 0.2 mg PO HS 11/21/23 07/25/24 insulin aspart U-100 100 unit/mL 15 unit (0.15 mL) subcut AC #15 mL 01/05/24 07/25/24 (3 mL) subcutaneous pen (Novolog FlexPen U-100 Insulin aspart) naloxone 4 mg/actuation nasal 4 mg intranasal Q2M PRN opioid 02/13/24 07/25/24 spray (Narcan) overdose #2 ea 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 04/12/24 07/25/24 #90 tab-caps blood sugar diagnostic (Blood #400 ea 04/26/24 07/25/24 Glucose Test strips) magnesium oxide 400 mg (241.3 mg 400 mg PO BID #180 tabs 04/26/24 07/25/24 magnesium) tablet mirtazapine 15 mg tablet 15 mg PO HS 05/03/24 07/25/24 omeprazole 40 mg capsule,delayed 40 mg PO DAILY #90 caps 05/20/24 07/25/24 release nystatin 100,000 unit/gram topical 1 applic topical BID PRN fungal 05/25/24 07/25/24 powder skin infection #30 grams albuterol sulfate 90 mcg/actuation 1 - 2 puff inhalation Q4-6H PRN ##1 05/31/24 07/25/24 aerosol inhaler fluticasone 250 mcg-salmeterol 50 1 inh inhalation BID #60 ea 05/31/24 07/25/24 mcg/dose blistr powdr for inhalation (Advair Diskus) gabapentin 300 mg capsule 300 mg PO HS PRN back pain #60 caps 05/31/24 07/25/24 glucagon 1 mg/0.2 mL subcutaneous 1 mg (0.2 mL) subcut ONCE #0.4 mL 05/31/24 07/25/24 auto-injector (Gvoke HypoPen 2-Pack) ipratropium 0.5 mg-albuterol 3 mg 3 ml inhalation QID PRN wheezing 05/31/24 07/25/24 (2.5 mg base)/3 mL nebulization #180 mL soln methocarbamol 500 mg tablet 1,000 mg (2 x 500 mg) PO HS PRN 05/31/24 07/25/24 muscle spasm #90 tabs metoclopramide HCl 10 mg tablet 10 mg PO TID PRN 05/31/24 07/25/24 ondansetron 8 mg disintegrating 8 mg PO BID PRN nausea and 05/31/24 07/25/24 tablet vomiting #60 tabs fremanezumab-vfrm 225 mg/1.5 mL 225 mg subcut QMONTH 06/07/24 07/25/24 subcutaneous auto-injector (Ajovy) onabotulinumtoxinA 100 unit 300 unit IM ONCE 06/07/24 07/25/24 solution for injection (Botox) lurasidone 80 mg tablet 80 mg PO DAILY 06/08/24 07/25/24 atorvastatin 80 mg tablet 80 mg PO DAILY #90 tabs 06/23/24 07/25/24 blood-glucose sensor (Dexcom G6 #3 ea 06/23/24 07/25/24 Sensor device) methadone 10 mg/mL oral 77 mg PO DAILY 06/23/24 07/25/24 concentrate (Methadone Intensol) ketorolac 10 mg tablet 10 mg PO Q8H PRN pain #30 tabs 06/29/24 07/25/24 blood-glucose transmitter (Dexcom #3 ea 07/07/24 07/25/24 G6 Transmitter device) foam pillow #1 ea 07/07/24 07/25/24 metoprolol succinate 50 mg 50 mg PO DAILY recent VT #30 tabs 07/07/24 07/25/24 tablet,extended release 24 hr pregabalin 200 mg capsule 200 mg PO TID #90 caps 07/07/24 07/25/24 lorazepam 0.5 mg tablet See Rx Instructions PO DAILY PRN 07/08/24 07/25/24 dyspnea #14 tabs insulin degludec 100 unit/mL (3 30 unit subcut DAILY 07/13/24 07/25/24 mL) subcutaneous pen (Tresiba FlexTouch U-100 insulin) losartan 25 mg tablet 25 mg PO DAILY 07/14/24 07/25/24 spironolactone 25 mg tablet 25 mg PO DAILY 07/14/24 07/25/24 furosemide 40 mg tablet (Lasix) 40 mg PO DAILY #14 tabs 07/18/24 07/25/24 magnesium 250 mg tablet 250 mg PO DAILY #14 tabs 07/18/24 07/25/24 metoprolol succinate 25 mg 100 mg PO DAILY 07/18/24 07/25/24 tablet,extended release 24 hr Previous Rx's ?Medication ?Instructions ?Recorded acetaminophen 500 mg tablet 500 - 1,000 mg (1 - 2 x 500 mg) PO 09/24/19 Q8H PRN fever or pain #180 tab-caps alcohol swabs (Alcohol Pads) 1 pad topical QID #400 ea 10/25/22 pen needle, diabetic 32 gauge x #100 ea 06/30/23 (BD Ultra-Fine Yamini Pen Needle) blood-glucose meter #1 ea 08/28/23 lancets #400 ea 08/28/23 insulin aspart U-100 100 unit/mL 15 unit (0.15 mL) subcut AC #15 mL 01/05/24 (3 mL) subcutaneous pen (Novolog FlexPen U-100 Insulin aspart) naloxone 4 mg/actuation nasal 4 mg intranasal Q2M PRN opioid 02/13/24 spray (Narcan) overdose #2 ea 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 04/12/24 #90 tab-caps blood sugar diagnostic (Blood #400 ea 04/26/24 Glucose Test strips) magnesium oxide 400 mg (241.3 mg 400 mg PO BID #180 tabs 04/26/24 magnesium) tablet omeprazole 40 mg capsule,delayed 40 mg PO DAILY #90 caps 05/20/24 release nystatin 100,000 unit/gram topical 1 applic topical BID PRN fungal 05/25/24 powder skin infection #30 grams albuterol sulfate 90 mcg/actuation 1 - 2 puff inhalation Q4-6H PRN ##1 05/31/24 aerosol inhaler fluticasone 250 mcg-salmeterol 50 1 inh inhalation BID #60 ea 05/31/24 mcg/dose blistr powdr for inhalation (Advair Diskus) gabapentin 300 mg capsule 300 mg PO HS PRN back pain #60 caps 05/31/24 glucagon 1 mg/0.2 mL subcutaneous 1 mg (0.2 mL) subcut ONCE #0.4 mL 05/31/24 auto-injector (Gvoke HypoPen 2-Pack) ipratropium 0.5 mg-albuterol 3 mg 3 ml inhalation QID PRN wheezing 05/31/24 (2.5 mg base)/3 mL nebulization #180 mL soln methocarbamol 500 mg tablet 1,000 mg (2 x 500 mg) PO HS PRN 05/31/24 muscle spasm #90 tabs ondansetron 8 mg disintegrating 8 mg PO BID PRN nausea and 05/31/24 tablet vomiting #60 tabs atorvastatin 80 mg tablet 80 mg PO DAILY #90 tabs 06/23/24 blood-glucose sensor (Dexcom G6 #3 ea 06/23/24 Sensor device) ketorolac 10 mg tablet 10 mg PO Q8H PRN pain #30 tabs 06/29/24 blood-glucose transmitter (Dexcom #3 ea 07/07/24 G6 Transmitter device) foam pillow #1 ea 07/07/24 metoprolol succinate 50 mg 50 mg PO DAILY recent VT #30 tabs 07/07/24 tablet,extended release 24 hr pregabalin 200 mg capsule 200 mg PO TID #90 caps 07/07/24 lorazepam 0.5 mg tablet See Rx Instructions PO DAILY PRN 07/08/24 dyspnea #14 tabs furosemide 40 mg tablet (Lasix) 40 mg PO DAILY #14 tabs 07/18/24 magnesium 250 mg tablet 250 mg PO DAILY #14 tabs 07/18/24 Allergies Allergy/AdvReac Type Severity Reaction Status Date / Time Penicillins Allergy Severe lip and Verified 07/26/24 18:27 facial swelling lamotrigine (From Lamictal) Allergy Unknown Skin Rash Verified 07/26/24 18:27 clindamycin AdvReac Severe Nausea & Verified 07/26/24 18:27 vomiting aspirin AdvReac Intermediate nausea/pain Verified 07/26/24 18:27 General Stated Complaint: GenMedical CARLOS: 2 Review of Systems All systems reviewed & are unremarkable except as noted in HPI and below Constitutional Constitutional: Denies chills, Denies fever(s) and Denies weakness Cardiovascular Cardiovascular: Reports chest pain and Reports dyspnea Respiratory Respiratory: Denies cough and Reports dyspnea Gastrointestinal Gastrointestinal: Denies abdominal pain, Denies nausea and Denies vomiting Neurologic Neurologic: Denies weakness Exam Const General: no acute distress Orientation: alert HENMT Head: normal to inspection Ears: external ears normal General nose exam: external nose normal Mouth: moist mucous membranes Eyes General: appearance normal, both eyes and all related structures Neck Neck: normal visual inspection Resp Effort & Inspection: normal respiratory effort and able to speak in complete sentences Auscultation: clear to auscultation bilaterally Cardio Jugular venous pressure: no JVD Rate: regular rate Heart Sounds: no murmurs GI Palpation: soft and nontender Skin General skin exam: no rashes or lesions noted Neuro General: patient alert and patient oriented x3 Extrem General: normal to inspection Psych Mental Status: mental status grossly normal Course Vital Signs Vital signs: Vital Signs Temperature 36.8 C 07/26/24 18:19 Pulse 84 07/26/24 18:19 Respiratory Rate 16 07/26/24 18:19 Blood Pressure 120/77 07/26/24 18:19 Pulse Oximetry 95 07/26/24 18:19 Temperature 36.8 C 07/26/24 18:19 Temperature Source Oral 07/26/24 18:19 Pulse 84 07/26/24 18:19 Respiratory Rate 16 07/26/24 18:19 Blood Pressure 120/77 07/26/24 18:19 Blood Pressure Position Sitting 07/26/24 18:19 Pulse Oximetry 95 07/26/24 18:19 Oxygen Delivery Method Room Air 07/26/24 18:19 Oxygen Flow Rate 0 07/26/24 18:19 Pain Level 5 07/26/24 18:19 Medical Decision Making 43-year-old female with a history of CHF, diabetes, bipolar comes in with blood sugars reading high on her home monitor. She was seen yesterday for chest pain and shortness of breath with negative workup and her glucose being high and was given extra insulin for this. She says her glucometers been running high all day so came here for evaluation. She says that she has chronic chest pain and shortness of breath is at her baseline and unchanged. She denies any fevers, abdominal pain, vomiting. She is alert oriented x 4 on arrival speaking clearly. She has a soft nontender abdomen, clear lung sounds, moist mucous membranes. I suspect that she has poorly controlled diabetes, will check CBC, CMP, VBG and UA to evaluate for DKA. She is no severe chest pain and no pain now so doubt ACS but will check a troponin. No tearing back pain to suggest dissection and no lower extremity edema to suggest DVT so doubt PE. Patient states she feels anxious requesting something for anxiety, on her med rec she does have Ativan so I recommended milligram of p.o. Ativan for anxiety. Patient's labs show no significant change from baseline other than hyperglycemia with glucose over 500. She is given IV insulin boluses and her sugars are now in the 300s and able to be read on glucometer. I advised she should check her sugar for more frequently and give extra doses of short acting insulin if needed. She will follow-up with her PCP and return precautions given. Differential Diagnosis Differential Diagnosis: hyperglycemia, dka Medical Records Medical records reviewed: Yes I reviewed the patient's medical records. Lab Data Lab results reviewed: Yes I reviewed the patient's lab results. ECG Data Attestation: I personally reviewed and interpreted this ECG (s) as follows: Prior ECG tracings: available for review Interpretation: sinus rate of 78 no stemi Quality:SDOH Health Related Social Needs: No Data to Display [facility] All Active Problems (Updated 07/26/24 @ 20:47 by Hussain Espinal MD) AUGUSTINE (acute kidney injury) (Acute) Acute hyperglycemia (Acute) Chronic dyspnea (Acute) Diabetes (Chronic) CHF (congestive heart failure) (Chronic) Orthopnea (Acute) Edema of both lower legs (Acute) l>r .. chf? INACTIVITY? Myocardial infarction acute (Acute) Abrasion of cornea, right (Acute) Abdominal pain (Acute) Diabetic foot ulcer (Acute) Fatty infiltration of liver (Acute) Hx cirrhosis? 2' pancreatitis (05/2024)? Elevated troponin level not due myocardial infarction (Acute ~05/2024) ?type 2 ACS Acute postoperative abdominal pain (Acute) Diabetic ketoacidosis (Acute ~05/2024) Corneal abrasion (Acute) Obstructive sleep apnea of adult (Acute) [facility] 12/23/23 Muscle spasm of left lower extremity (Acute) Muscle spasm of back (Acute) Diabetic cataract of right eye (Acute) Ulcer of right foot limited to breakdown of skin (Acute 04/16/23) [facility] Podiatry Ulcer of left foot, limited to breakdown of skin (Acute 04/16/23) [facility] Podiatry Iron deficiency (Acute) 03/2023 iron studies indicating deficiency (NOT anemic) Migraine (Chronic) [facility] Neuro Chronic constipation (Chronic) [facility] GI Type 2 diabetes mellitus, with long-term current use of insulin (Chronic) With neuropathy & retinopathy (left, mild) Obesity (Chronic) Cirrhosis of liver (Chronic) [facility] GI Asthma (Chronic) Tobacco use disorder (Chronic) Started smoking age 9 Poorly controlled type 2 diabetes mellitus (Chronic 03/23/18) Polypharmacy (Chronic 12/14/15) Mild nonproliferative diabetic retinopathy associated with type 2 diabetes mellitus (Chronic 01/22/16) Mental health disorder (Chronic) Pt reports being diagnosed with bipolar disorder, disassociative disorder, an xiety, & multiple personality disorder Hypomagnesemia (Chronic 09/30/16) Hyperlipidemia (Chronic 09/30/16) 10-year ASCVD risk = unable to calculate due to not being age 40+ however dx T2DM, so Rx for statin 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 Jimenez [facility] 2023: [facility] GI Depressive disorder (Chronic 10/31/14) ADMISSION SUICIDAL THOUGHTS 06/13/14 OD ATTEMPTS IN PAST Chronic nausea (Chronic) EGD 04/16/16 Dr. 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) Medical History DKA (diabetic ketoacidosis) Acute gallstone pancreatitis Acute pancreatitis Opioid use disorder MAT with methadone Chronic fatigue (07/19/15) Osteomyelitis Dyspareunia in female (07/09/17) Punctate keratitis of both eyes Ulcer of foot due to secondary diabetes Umbilical hernia (03/11/18) 03/17/2018: [facility] GI Premature surgical menopause JAD/BSO in late 20s, no HRT Hepatitis C 02/14/2016 labwork: undetectable RNA level Surgical History S/P cholecystectomy (06/12/24) Dr Reyes Status post total hysterectomy and bilateral salpingo-oophorectomy (~2006) noncancerous reasons Status post left foot surgery (10/2022) Left fourth metatarsal head excision for chronic ulcer, osteomyelitis ([facility]/Tamia Vidales, DPM) Status post section (~2003) EGD (04/16/16) Dr. Ferrer Family History Mother , 46yo due to kidney & liver failure due to alcohol Substance use disorder Alcohol use disorder Father , 62yo from ALS Substance use disorder Alcohol use disorder ALS (amyotrophic lateral sclerosis) Grandmother Colon cancer Paternal Paternal Uncle Cardiac arrest Substance use disorder Alcohol and Pain Medication Abuse Social History Smoking/Tobacco Use Status: Current every day Tobacco Type: cigarettes Smoking packs per day: 1 Smoking cigarettes per day: 20.0 Tobacco: How many years used: 33 Quit status: considering quitting Smoking risk assessment performed?: Yes Alcohol Intake: never Drug use: Occasionally Substance use type: former substance user and marijuana Details: Pt. 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 Pets and animals: Yes (1 dog, 4 cats) Pets and animals: cat(s) and dog(s) Sexually active: Yes Do you think of yourself as: straight/heterosexual Current gender identity: female Other: 09/2022: pt reports she is engaged What is your relationship status?: How often do you talk on the phone with friends or family?: three or more times per week How often do you get together with friends or relatives?: once per week How often do you attend cheondoism or pentecostalism services?: decline to answer Do you belong to any clubs or organized social groups?: no Panel score (0-1 are the most socially isolated patients): 2 What type of physical activity do you participate in: none Duration: decline to answer Frequency: decline to answer Seatbelt use: always Helmet use: No (No reason to wear one) 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
[2024-07-26 19:19] LABS: Abs Immature Grans 0.07 10^3/uL (0.0-0.06); Absolute Basophil Count 0.05 10^3/uL (0.0-0.2); Absolute Eosinophil Count 0.04 10^3/uL (0.0-0.7); Absolute Lymphocyte Count 2.28 10^3/uL (1.2-3.4); Absolute Monocyte Count 0.62 10^3/uL (0.1-0.8); Absolute Neutrophil Count 9.59 10^3/uL (1.2-6.7); Basophils % 0.4 %; Eosinophils % 0.3 %; HCT 40.2 % (36.0-46.0); HGB 12.4 g/dL (11.2-15.7); Immature Grans % 0.6 %; MCH 24.4 pg (27.0-33.0); MCHC 30.8 % (32.0-36.0); MCV 79 fL (80-95); MPV 11.4 fL (8.0-11.0); Monocytes % 4.9 %; Neutrophils % 75.8 %; Platelet Count 235 10^3/uL (130-400); RBC 5.09 10^6/uL (3.93-5.22); RDW 16.4 % (11.7-14.6); RDW-SD 46.8 fL; WBC 12.65 10^3/uL (4.4-10.8)
[2024-07-26 19:20] LABS: BE (Venous) 8 mmol/L (-2-3); HCO3 (Venous) 33 mmol/L (23-28); O2 Sat (Venous) 79 %; TCO2 (Venous) 30 mmol/L (24-29); pCO2 (Venous) 58 mmHg (41-51); pH (Venous) 7.37 (7.31-7.41); pO2 (Venous) 41 mmHg
[2024-07-26 19:27] LABS: Bilirubin Negative (Negative); Blood Negative (Negative); Clarity Clear (Clear); Glucose >=1000 mg/dL (Negative); Ketones Negative (Negative); Leukocyte Esterase Negative (Negative); Nitrite Negative (Negative); Specific Gravity <= 1.005 (1.005-1.025); Urobilinogen 0.2 mg/dL (Up to 0.2); pH 5.5 (5-8)
[2024-07-26 19:35] LABS: Bacteria Negative HPF (Negative); C & S Indicated? No; Casts Negative LPF (Negative); Crystals Negative HPF (Negative); Epithelial Cells Rare HPF (Negative); Mucus Negative (Negative); RBC Negative HPF (0-2); WBC Negative HPF (0-5)
[2024-07-26] MEDS: Insulin REGULAR-Human 100 UNITS/ML UNIT 10 UNITS IV ×2 (19:38→20:01)
[2024-07-26] MEDS: LORazepam 1 MG TAB PO (20:01)
[2024-07-26 20:02] VITALS: RESP 29
[2024-07-26 20:07] LABS: ALT 24 U/L (14-59); AST 28 U/L (15-37); Albumin 3.3 g/dL (3.4-5.0); Alkaline Phosphatase 214 U/L (46-116); BUN 27 mg/dL (7-18); Bilirubin, Total 0.32 mg/dL (0.2-1.0); CO2 33.5 mmol/L (21.0-32.0); CREATININE 1.2 mg/dL (0.55-1.02); Calcium 9.6 mg/dL (8.5-10.1); Estimated GFR 56.89 (mL/min/1.73m2); Magnesium 1.7 mg/dL (1.8-2.4); NT-proBNP 475 pg/mL (<300); TSH (W/Ref FT4) 1.78 uIU/mL (0.36-3.74); Troponin I 6 ng/L (<or=51)
[2024-07-26 20:11] LABS: Chloride 93 mmol/L (98-107); Potassium 4.5 mmol/L (3.5-5.1); Sodium 134 mmol/L (136-145)
[2024-07-26 20:15] LABS: Procalcitonin 0.1 ng/mL
[2024-07-26 20:22] LABS: Anion Gap 7.5 mmol/L (3-11); Glucose 561 mg/dL (74-106)
[2024-07-26 20:27] LABS: Troponin I 6 ng/L (<or=51)
[2024-07-26 21:00] VITALS: BP 100/71; PULSE 82; RESP 14; RESP 20; O2SAT 96
--- NOTE | 2024-08-25 09:40 | NUR.NOTE ---
Received a Patient Safety document, gave this to the Provider.
== END 2024-07-26 21:00 | disposition home or self-care (01) ==
PROVIDERS: Emergency Provider Emergency Medicine; PCP Nurse Practitioner Adult Health
DX: E11.65 Type 2 diabetes mellitus with hyperglycemia (principal); I50.9 Heart failure, unspecified; F41.9 Anxiety disorder, unspecified; R07.9 Chest pain, unspecified; R06.02 Shortness of breath
CPT/HCPCS: 36415; 36416; 80053; 82805; 82962; 84145; 93005; 96374; 96376; 99284; 81003; 81015; 83735; 83880; 84443; 84484; 85025; 93010; J1815

== ENCOUNTER 2024-08-25 15:00 | Emergency (ER) | payer OTHER, SELFPAY ==
[2024-08-25 15:04] VITALS: BP 133/80; PULSE 88; RESP 15; TEMP 36.9; O2SAT 94
--- NOTE | 2024-08-25 15:36 | DI.RAD_ITS ---
Exam(s) XR FOOT RT COMPLETE EXAM: XR FOOT RT COMPLETE CLINICAL HISTORY: foot wound. TECHNIQUE: 2D digital imaging was performed. Three views. COMPARISON: MR MR LOWER EXTREMITY LT WO/W from 07/24/2022 FINDINGS: BONES: No acute fracture is present. No bony destructive lesion is seen. JOINTS: No dislocation present. SOFT TISSUE: Soft tissue defect at the medial aspect the great toe. No foreign body. IMPRESSION: Soft tissue defect of the great toe. No foreign body DATA REPOSITORY: RADIATION DOSE DELIVERED:
[2024-08-25 16:12] LABS: BE (Venous) 3 mmol/L (-2-3); HCO3 (Venous) 28 mmol/L (23-28); O2 Sat (Venous) 88 %; TCO2 (Venous) 26 mmol/L (24-29); pCO2 (Venous) 52 mmHg (41-51); pH (Venous) 7.35 (7.31-7.41); pO2 (Venous) 50 mmHg
[2024-08-25 16:13] LABS: Abs Immature Grans 0.04 10^3/uL (0.0-0.06); Absolute Basophil Count 0.05 10^3/uL (0.0-0.2); Absolute Eosinophil Count 0.15 10^3/uL (0.0-0.7); Absolute Lymphocyte Count 3.15 10^3/uL (1.2-3.4); Absolute Neutrophil Count 7.98 10^3/uL (1.2-6.7); Basophils % 0.4 %; Eosinophils % 1.2 %; HCT 43.8 % (36.0-46.0); HGB 13.2 g/dL (11.2-15.7); Immature Grans % 0.3 %; Lymphocytes % 25.9 %; MCH 23.7 pg (27.0-33.0); MCHC 30.1 % (32.0-36.0); MCV 79 fL (80-95); MPV 11.3 fL (8.0-11.0); Monocytes % 6.7 %; Neutrophils % 65.5 %; Platelet Count 259 10^3/uL (130-400); RBC 5.56 10^6/uL (3.93-5.22); RDW 17.5 % (11.7-14.6); RDW-SD 50.1 fL; WBC 12.18 10^3/uL (4.4-10.8)
[2024-08-25 16:17] LABS: Absolute Monocyte Count 0.82 10^3/uL (0.1-0.8)
[2024-08-25 16:22] LABS: ESR 32 mm/hr (0-20)
[2024-08-25 16:37] LABS: ALT 45 U/L (14-59); AST 27 U/L (15-37); Albumin 3.5 g/dL (3.4-5.0); Alkaline Phosphatase 283 U/L (46-116); Anion Gap 8.3 mmol/L (3-11); BUN 23 mg/dL (7-18); Bilirubin, Total 0.24 mg/dL (0.2-1.0); CO2 28.7 mmol/L (21.0-32.0); CREATININE 1.5 mg/dL (0.55-1.02); Calcium 9.1 mg/dL (8.5-10.1); Chloride 102 mmol/L (98-107); Estimated GFR 43.52 (mL/min/1.73m2); Glucose 239 mg/dL (74-106); Potassium 4.9 mmol/L (3.5-5.1); Sodium 139 mmol/L (136-145); Total Protein 7.7 g/dL (6.4-8.2)
[2024-08-25] MEDS: Sulfameth/Trimeth DS, 2 TABS/BTL 1 TAB PO (17:04)
[2024-08-25] MEDS: Sulfameth/Trimeth DS TAB 1 TAB PO (17:04)
[2024-08-25] MEDS: Ketorolac 15 MG/ML VIAL 10 MG IVP (17:05)
[2024-08-25 17:13] VITALS: BP 129/74; PULSE 84; RESP 16; TEMP 36.4; O2SAT 94
--- NOTE | 2024-08-25 22:31 | W.ED.GENAD ---
Discharge Plan Disposition Patient Disposition: Home Condition: Stable Discharge Details Clinical Impression: Diabetic foot ulcer, Diabetic neuropathy Primary Care Provider: Unknown,Unknown ED Provider: Ruchi Quick Home Meds and New Rx's Prescriptions: New sulfamethoxazole-trimethoprim [Bactrim DS] 800-160 mg tablet 1 tab PO BID 6 Days Qty: 12 0RF No Action albuterol sulfate 90 mcg/actuation HFA aerosol inhaler 1 - 2 puff Inhalation Q4-6H PRN Qty: 1 1RF Rx Instructions: DISPENSE ALBUTEROL INHALER BRAND COVERED BY INSURANCE metoclopramide HCl 10 mg tablet 10 mg PO TID PRN Rx Instructions: administer 30 minutes before meals ondansetron 8 mg tablet,disintegrating 8 mg PO BID PRN (Reason: nausea and vomiting) Qty: 60 11RF gabapentin 300 mg capsule 300 mg PO HS PRN (Reason: back pain) Qty: 60 0RF Gvoke HypoPen 2-Pack 1 mg/0.2 mL auto-injector 1 mg subcut ONCE Qty: 0.4 1RF Rx Instructions: HYPOGLYCEMIA; as a single dose; may repeat once after 15 minutes if no response methocarbamol 500 mg tablet 1,000 mg PO HS PRN (Reason: muscle spasm) Qty: 90 0RF Rx Instructions: Use lowest effective dose for shortest duration for muscle spasm ipratropium-albuterol 0.5 mg-3 mg(2.5 mg base)/3 mL solution for nebulization 3 ml inhalation QID PRN (Reason: wheezing) Qty: 180 1RF Rx Instructions: During asthma exacerbation, may use preventatively TID, titrating down to QID PRN as wheeze & SOB improve. fluticasone propion-salmeterol [Advair Diskus] 250-50 mcg/dose blister with device 1 inh inhalation BID Qty: 60 1RF Rx Instructions: Please use this during asthma exacerbations, wean off as shortness of breath & wheeze improve. atorvastatin 80 mg tablet 80 mg PO DAILY Qty: 90 3RF (DME) Dexcom G6 Sensor Device See Rx Instructions .ROUTE .COMPLEX Qty: 3 6RF Dose Instruction: USE DIRECTED Rx Instructions: USE DIRECTED methadone [Methadone Intensol] 10 mg/mL concentrate 77 mg PO DAILY alcohol swabs [Alcohol Pads] Pads, Medicated 1 pad Topical QID Qty: 400 3RF naloxone [Narcan] 4 mg/actuation spray,non-aerosol 4 mg intranasal Q2M PRN (Reason: opioid overdose) Qty: 2 0RF Rx Instructions: spray 1 dose into ONE nostril; alternate nostrils w each dose until help arrives (DME) Dexcom G6 Transmitter Device See Rx Instructions .Route Qty: 3 3RF Rx Instructions: As directed pregabalin 200 mg capsule 200 mg PO TID Qty: 90 3RF metoprolol succinate 50 mg tablet extended release 24 hr 50 mg PO DAILY Qty: 30 1RF Rx Instructions: Trial lower dose (50+25=75mg) due to fatigue/SOB (on 100mg) (DME) foam pillow triangular See Rx Instructions .Route .MEDSUPPLY Qty: 1 0RF Rx Instructions: Trial sleeping & resting (legs need elevation) @ 30-40' angle to alleviate SOB/Panic acetaminophen 500 mg tablet 500 - 1,000 mg PO Q8H MDD 3000 mg PRN (Reason: fever or pain) Qty: 180 0RF Rx Instructions: 1 month supply (DME) pen needle, diabetic [BD Ultra-Fine Yamini Pen Needle] 32 gauge x 5/32 needle See Rx Instructions .ROUTE .COMPLEX Qty: 100 0RF Dose Instruction: USE TO ADMINISTER INSULIN ONCE DAILY Rx Instructions: USE TO ADMINISTER INSULIN ONCE DAILY (DME) blood-glucose meter Misc See Rx Instructions .Route Qty: 1 0RF Rx Instructions: One Touch meter (DME) lancets Misc See Rx Instructions .ROUTE .MEDSUPPLY Qty: 400 3RF Rx Instructions: As directed to check blood glucose four times daily. On insulin. Dispense one touch ultra insulin aspart U-100 [Novolog FlexPen U-100 Insulin] 100 unit/mL (3 mL) insulin pen 15 unit subcut AC Qty: 15 3RF Rx Instructions: 10-15 units sliding scale before meals valacyclovir 500 mg tablet 500 mg PO DAILY Qty: 90 3RF (DME) Blood Glucose Test Strip See Rx Instructions .MEDSUPPLY Qty: 400 3RF Rx Instructions: As directed to check blood glucose four times daily. On insulin. Dispense one touch ultra magnesium oxide 400 mg (241.3 mg magnesium) tablet 400 mg PO BID Qty: 180 0RF omeprazole 40 mg capsule,delayed release(DR/EC) 40 mg PO DAILY Qty: 90 3RF nystatin 100,000 unit/gram powder 1 applic Topical BID PRN (Reason: fungal skin infection) Qty: 30 3RF Rx Instructions: Apply powder to affected area under R breast twice daily lorazepam 0.5 mg tablet See Rx Instructions PO DAILY PRN (Reason: dyspnea) Qty: 14 0RF Rx Instructions: Short term increase to BID PRN panic or shortness of breath orally daily PRN; (FYI to Prescriber @ [facility]) insulin degludec [Tresiba FlexTouch U-100] 100 unit/mL (3 mL) insulin pen 30 unit subcut DAILY Patient Comments: takes more than rx'd due to blood sugars being high Rx Instructions: 07/13/2024 PER [facility] decrease to 30 units losartan 25 mg tablet 25 mg PO DAILY spironolactone 25 mg tablet 25 mg PO DAILY polyethylene glycol 3350 [Miralax] 17 gram/dose powder 17 g PO DAILY PRN (Reason: constipation/gastroparesis) Qty: 238 0RF clonidine HCl 0.2 mg tablet 0.2 mg PO HS Patient Comments: TAKE 1 TABLET BY MOUTH EVERY NIGHT AT BEDTIME mirtazapine 15 mg tablet 15 mg PO HS Ajovy Autoinjector 225 mg/1.5 mL auto-injector 225 mg subcut QMONTH Botox 100 unit recon soln 300 unit IM ONCE Rx Instructions: divided among affected muscles lurasidone 80 mg tablet 80 mg PO DAILY Patient Comments: TAKE ONE TABLET BY MOUTH EVERY DAY WITH AT LEAST 350 CALORIES ketorolac 10 mg tablet 10 mg PO Q8H PRN (Reason: pain) Qty: 30 0RF Rx Instructions: maximum total duration of 5 days from all oral, intranasal, or parenteral formulations metoprolol succinate 25 mg tablet extended release 24 hr 100 mg PO DAILY furosemide [Lasix] 40 mg tablet 40 mg PO DAILY Qty: 14 0RF magnesium 250 mg tablet 250 mg PO DAILY Qty: 14 0RF Discharge Instructions Instructions: Diabetic Foot Ulcer (DC) Additional Instructions: Your lab work today is reassuring that you do not have a more serious infection and that you can be treated with oral antibiotics Please wear the shoe provided to try to decrease pressure on your ulcer You need to see podiatry. You can see your sewing demonstrator in [place] if you choose and a referral has also been sent to the podiatry clinic in [place] for you as well You were given your first dose of antibiotics in the emergency department and discharged with your first day. The remaining 6 days have been sent to your pharmacy Return with worsening pain, worsening redness any drainage or fever Discharge Data Discharge Date/Time-TO BE ENTERED AT DEPARTURE: 08/25/24 17:16 HPI General Date/Time Provider Initiated Documentation: 08/25/24 15:18. Limitations to Documentation: no limitations. Information obtained by: patient. HPI Narrative: 43-year-old female with past medical history of diabetes, poorly controlled, presents for evaluation of wound on her right great toe. She reports that it has been there for about a month, but over the last week it has significantly worsened in terms of pain. She says that it started as a blister because her shoes rub on her feet. She states that she does see podiatry in [place]. She has not seen them for over a month. She was supposed to be fitted for special diabetic shoes, but that has not happened yet. She reports some clearish yellow drainage from the wound. No foul smell. No significant swelling of her foot. Related Data Home Medications ?Medication ?Instructions ?Recorded ?Confirmed acetaminophen 500 mg tablet 500 - 1,000 mg (1 - 2 x 500 mg) PO 09/24/19 08/25/24 Q8H PRN fever or pain #180 tab-caps alcohol swabs (Alcohol Pads) 1 pad topical QID #400 ea 10/25/22 08/25/24 pen needle, diabetic 32 gauge x #100 ea 06/30/23 08/25/24 (BD Ultra-Fine Yamini Pen Needle) blood-glucose meter #1 ea 08/28/23 08/25/24 lancets #400 ea 08/28/23 08/25/24 clonidine HCl 0.2 mg tablet 0.2 mg PO HS 11/21/23 08/25/24 insulin aspart U-100 100 unit/mL 15 unit (0.15 mL) subcut AC #15 mL 01/05/24 08/25/24 (3 mL) subcutaneous pen (Novolog FlexPen U-100 Insulin aspart) naloxone 4 mg/actuation nasal 4 mg intranasal Q2M PRN opioid 02/13/24 08/25/24 spray (Narcan) overdose #2 ea 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 04/12/24 08/25/24 #90 tab-caps blood sugar diagnostic (Blood #400 ea 04/26/24 08/25/24 Glucose Test strips) magnesium oxide 400 mg (241.3 mg 400 mg PO BID #180 tabs 04/26/24 08/25/24 magnesium) tablet mirtazapine 15 mg tablet 15 mg PO HS 05/03/24 08/25/24 omeprazole 40 mg capsule,delayed 40 mg PO DAILY #90 caps 05/20/24 08/25/24 release nystatin 100,000 unit/gram topical 1 applic topical BID PRN fungal 05/25/24 08/25/24 powder skin infection #30 grams albuterol sulfate 90 mcg/actuation 1 - 2 puff inhalation Q4-6H PRN ##1 05/31/24 08/25/24 aerosol inhaler fluticasone 250 mcg-salmeterol 50 1 inh inhalation BID #60 ea 05/31/24 08/25/24 mcg/dose blistr powdr for inhalation (Advair Diskus) gabapentin 300 mg capsule 300 mg PO HS PRN back pain #60 caps 05/31/24 08/25/24 glucagon 1 mg/0.2 mL subcutaneous 1 mg (0.2 mL) subcut ONCE #0.4 mL 05/31/24 08/25/24 auto-injector (Meseretoke Alexisen 2-Pack) ipratropium 0.5 mg-albuterol 3 mg 3 ml inhalation QID PRN wheezing 05/31/24 08/25/24 (2.5 mg base)/3 mL nebulization #180 mL soln methocarbamol 500 mg tablet 1,000 mg (2 x 500 mg) PO HS PRN 05/31/24 08/25/24 muscle spasm #90 tabs metoclopramide HCl 10 mg tablet 10 mg PO TID PRN 05/31/24 08/25/24 ondansetron 8 mg disintegrating 8 mg PO BID PRN nausea and 05/31/24 08/25/24 tablet vomiting #60 tabs fremanezumab-vfrm 225 mg/1.5 mL 225 mg subcut QMONTH 06/07/24 08/25/24 subcutaneous auto-injector (Pbovy) onabotulinumtoxinA 100 unit 300 unit IM ONCE 06/07/24 08/25/24 solution for injection (Botox) lurasidone 80 mg tablet 80 mg PO DAILY 06/08/24 08/25/24 atorvastatin 80 mg tablet 80 mg PO DAILY #90 tabs 06/23/24 08/25/24 blood-glucose sensor (Dexcom G6 #3 ea 06/23/24 08/25/24 Sensor device) methadone 10 mg/mL oral 77 mg PO DAILY 06/23/24 08/25/24 concentrate (Methadone Intensol) ketorolac 10 mg tablet 10 mg PO Q8H PRN pain #30 tabs 06/29/24 08/25/24 blood-glucose transmitter (Dexcom #3 ea 07/07/24 08/25/24 G6 Transmitter device) foam pillow #1 ea 07/07/24 08/25/24 metoprolol succinate 50 mg 50 mg PO DAILY recent [place] #30 tabs 07/07/24 08/25/24 tablet,extended release 24 hr pregabalin 200 mg capsule 200 mg PO TID #90 caps 07/07/24 08/25/24 lorazepam 0.5 mg tablet See Rx Instructions PO DAILY PRN 07/08/24 08/25/24 dyspnea #14 tabs insulin degludec 100 unit/mL (3 30 unit subcut DAILY 07/13/24 08/25/24 mL) subcutaneous pen (Tresiba FlexTouch U-100 insulin) losartan 25 mg tablet 25 mg PO DAILY 07/14/24 08/25/24 spironolactone 25 mg tablet 25 mg PO DAILY 07/14/24 08/25/24 furosemide 40 mg tablet (Lasix) 40 mg PO DAILY #14 tabs 07/18/24 08/25/24 magnesium 250 mg tablet 250 mg PO DAILY #14 tabs 07/18/24 08/25/24 metoprolol succinate 25 mg 100 mg PO DAILY 07/18/24 08/25/24 tablet,extended release 24 hr polyethylene glycol 3350 17 17 g PO DAILY PRN 08/02/24 08/25/24 gram/dose oral powder (Miralax) constipation/gastroparesis #238 grams sulfamethoxazole 800 1 tab PO BID 6 days #12 tabs 08/25/24 mg-trimethoprim 160 mg tablet (Bactrim DS) Previous Rx's ?Medication ?Instructions ?Recorded acetaminophen 500 mg tablet 500 - 1,000 mg (1 - 2 x 500 mg) PO 09/24/19 Q8H PRN fever or pain #180 tab-caps alcohol swabs (Alcohol Pads) 1 pad topical QID #400 ea 10/25/22 pen needle, diabetic 32 gauge x #100 ea 06/30/23 (BD Ultra-Fine Yamini Pen Needle) blood-glucose meter #1 ea 08/28/23 lancets #400 ea 08/28/23 insulin aspart U-100 100 unit/mL 15 unit (0.15 mL) subcut AC #15 mL 01/05/24 (3 mL) subcutaneous pen (Novolog FlexPen U-100 Insulin aspart) naloxone 4 mg/actuation nasal 4 mg intranasal Q2M PRN opioid 02/13/24 spray (Narcan) overdose #2 ea 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 04/12/24 #90 tab-caps blood sugar diagnostic (Blood #400 ea 04/26/24 Glucose Test strips) magnesium oxide 400 mg (241.3 mg 400 mg PO BID #180 tabs 04/26/24 magnesium) tablet omeprazole 40 mg capsule,delayed 40 mg PO DAILY #90 caps 05/20/24 release nystatin 100,000 unit/gram topical 1 applic topical BID PRN fungal 05/25/24 powder skin infection #30 grams albuterol sulfate 90 mcg/actuation 1 - 2 puff inhalation Q4-6H PRN ##1 05/31/24 aerosol inhaler fluticasone 250 mcg-salmeterol 50 1 inh inhalation BID #60 ea 05/31/24 mcg/dose blistr powdr for inhalation (Advair Diskus) gabapentin 300 mg capsule 300 mg PO HS PRN back pain #60 caps 05/31/24 glucagon 1 mg/0.2 mL subcutaneous 1 mg (0.2 mL) subcut ONCE #0.4 mL 05/31/24 auto-injector (Gvoke HypoPen 2-Pack) ipratropium 0.5 mg-albuterol 3 mg 3 ml inhalation QID PRN wheezing 05/31/24 (2.5 mg base)/3 mL nebulization #180 mL soln methocarbamol 500 mg tablet 1,000 mg (2 x 500 mg) PO HS PRN 05/31/24 muscle spasm #90 tabs ondansetron 8 mg disintegrating 8 mg PO BID PRN nausea and 05/31/24 tablet vomiting #60 tabs atorvastatin 80 mg tablet 80 mg PO DAILY #90 tabs 06/23/24 blood-glucose sensor (Dexcom G6 #3 ea 06/23/24 Sensor device) ketorolac 10 mg tablet 10 mg PO Q8H PRN pain #30 tabs 06/29/24 blood-glucose transmitter (Dexcom #3 ea 07/07/24 G6 Transmitter device) foam pillow #1 ea 07/07/24 metoprolol succinate 50 mg 50 mg PO DAILY recent [place] #30 tabs 07/07/24 tablet,extended release 24 hr pregabalin 200 mg capsule 200 mg PO TID #90 caps 07/07/24 lorazepam 0.5 mg tablet See Rx Instructions PO DAILY PRN 07/08/24 dyspnea #14 tabs furosemide 40 mg tablet (Lasix) 40 mg PO DAILY #14 tabs 07/18/24 magnesium 250 mg tablet 250 mg PO DAILY #14 tabs 07/18/24 polyethylene glycol 3350 17 17 g PO DAILY PRN 08/02/24 gram/dose oral powder (Miralax) constipation/gastroparesis #238 grams sulfamethoxazole 800 1 tab PO BID 6 days #12 tabs 08/25/24 mg-trimethoprim 160 mg tablet (Bactrim DS) Allergies Allergy/AdvReac Type Severity Reaction Status Date / Time Penicillins Allergy Severe lip and Verified 08/25/24 15:09 facial swelling lamotrigine (From Lamictal) Allergy Unknown Skin Rash Verified 08/25/24 15:09 clindamycin AdvReac Severe Nausea & Verified 08/25/24 15:09 vomiting aspirin AdvReac Intermediate nausea/pain Verified 08/25/24 15:09 General Stated Complaint: RashLesion CARLOS: 4 Exam Narrative Exam Narrative: Review of Systems: All systems reviewed & are unremarkable except as noted in HPI and below Well-developed, no acute distress Smells of cigarette smoke NCAT RRR Unlabored respiratory effort Right foot great toe with a 1 cm shallow ulceration noted on the medial aspect of the toe no surrounding erythema, no foul smell no drainage, no significant swelling of the toe, generalized tenderness Course Vital Signs Vital signs: Vital Signs Temperature 36.9 C 08/25/24 15: Pulse 88 08/25/24 15:04 Respiratory Rate 15 08/25/24 15:04 Blood Pressure 133/80 08/25/24 15:04 Pulse Oximetry 94 08/25/24 15:04 Temperature 36.4 C L 08/25/24 17:13 Pulse 84 08/25/24 17:13 Respiratory Rate 16 08/25/24 17:13 Respiratory Effort Normal 08/25/24 15:08 Blood Pressure 129/74 08/25/24 17:13 Blood Pressure Position Sitting 08/25/24 15:04 Pulse Oximetry 94 08/25/24 17:13 Oxygen Delivery Method Room Air 08/25/24 15:04 Oxygen Flow Rate 0 08/25/24 15:04 Pain Level 9 08/25/24 17:13 Lab/Test Results Lab/Test Results: Laboratory Tests Range/Units 08/25/24 16:06 WBC (4.4-10.8) 10^3/uL 12.18 H RBC (3.93-5.22) 10^6/uL 5.56 H Hgb (11.2-15.7) g/dL 13.2 Hct (36.0-46.0) % 43.8 MCV (80-95) fL 79 L MCH (27.0-33.0) pg 23.7 L MCHC (32.0-36.0) % 30.1 L RDW (11.7-14.6) % 17.5 H Plt Count (130-400) 10^3/uL 259 MPV (8.0-11.0) fL 11.3 H Immature Gran % % 0.3 Neutrophils % % 65.5 Lymphocytes % % 25.9 Monocytes % % 6.7 Eosinophils % % 1.2 Basophils % % 0.4 Nucleated RBC % (0.0-0.3) % 0.0 Absolute Neutrophils (1.2-6.7) 10^3/uL 7.98 H Absolute Lymphocytes (1.2-3.4) 10^3/uL 3.15 Absolute Monocytes (0.1-0.8) 10^3/uL 0.82 H Absolute Eosinophils (0.0-0.7) 10^3/uL 0.15 Absolute Basophils (0.0-0.2) 10^3/uL 0.05 ESR (0-20) mm/hr 32 H VBG pH (7.31-7.41) 7.35 VBG pCO2 (41-51) mmHg 52 H VBG pO2 mmHg 50 VBG HCO3 (23-28) mmol/L 28 VBG Total CO2 (24-29) mmol/L 26 VBG O2 Saturation % 88 VBG Base Excess (-2-3) mmol/L 3 Sodium (136-145) mmol/L 139 Potassium (3.5-5.1) mmol/L 4.9 Chloride (98-107) mmol/L 102 Carbon Dioxide (21.0-32.0) mmol/L 28.7 Anion Gap (3-11) mmol/L 8.3 BUN (7-18) mg/dL 23 H Creatinine (0.55-1.02) mg/dL 1.5 H Est GFR (CKD-EPI 2020) (mL/min/1.73m2) 43.52 Glucose (74-106) mg/dL 239 H Calcium (8.5-10.1) mg/dL 9.1 Total Bilirubin (0.2-1.0) mg/dL 0.24 AST (15-37) U/L 27 ALT (14-59) U/L 45 Alkaline Phosphatase (46-116) U/L 283 H C-Reactive Protein (<or=0.5) mg/dL 1.80 H Total Protein (6.4-8.2) g/dL 7.7 Albumin (3.4-5.0) g/dL 3.5 Medical Decision Making Emergent evaluation of diabetic foot ulcer. Patient does not appear to have an acutely infected foot. But does have significant history of poorly controlled diabetes and has prior history of osteomyelitis. Lab work obtained, mild elevation in inflammatory markers though not significantly elevated. X-ray does not reveal a bony process. At this time I do not feel that there is indication for hospitalization. I do feel she needs oral antibiotics and will start Bactrim. she has preference to follow-up with her sewing demonstrator in [place] though she stated that she has had transportation issues. Because of that I have placed referral for her to follow-up with the sewing demonstrator here, because I feel that it is important that she follows up urgently for aggressive wound care to prevent worsening disease. Return precautions advised. Quality:SDOH Health Related Social Needs: No Data to Display PFSH All Active Problems Diabetic foot ulcer (Acute) Orthopnea (Acute) Edema of both lower legs (Acute) l>r .. chf? INACTIVITY? Myocardial infarction acute (Acute) Fatty infiltration of liver (Acute) Hx cirrhosis? 2' pancreatitis (05/2024)? Elevated troponin level not due myocardial infarction (Acute ~05/2024) ?type 2 ACS Acute postoperative abdominal pain (Acute) Diabetic ketoacidosis (Acute ~05/2024) Corneal abrasion (Acute) Obstructive sleep apnea of adult (Acute) [facility] 12/23/23 Muscle spasm of left lower extremity (Acute) Muscle spasm of back (Acute) Diabetic cataract of right eye (Acute) Ulcer of right foot limited to breakdown of skin (Acute 04/16/23) [facility] Ulcer of left foot, limited to breakdown of skin (Acute 04/16/23) [facility] Iron deficiency (Acute) 03/2023 iron studies indicating deficiency (NOT anemic) Migraine (Chronic) [facility] Chronic constipation (Chronic) [facility] Type 2 diabetes mellitus, with long-term current use of insulin (Chronic) With neuropathy & retinopathy (left, mild) Obesity (Chronic) Cirrhosis of liver (Chronic) [facility] Diabetic neuropathy (Acute) Asthma (Chronic) Tobacco use disorder (Chronic) Started smoking age 9 Poorly controlled type 2 diabetes mellitus (Chronic 03/23/18) Polypharmacy (Chronic 12/14/15) Mild nonproliferative diabetic retinopathy associated with type 2 diabetes mellitus (Chronic 01/22/16) Mental health disorder (Chronic) Pt reports being diagnosed with bipolar disorder, disassociative disorder, anxiety, & multiple personality disorder Hypomagnesemia (Chronic 09/30/16) Hyperlipidemia (Chronic 09/30/16) 10-year ASCVD risk = unable to calculate due to not being age 40+ however dx T2DM, so Rx for statin 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 Jimenez [facility] 2023: [facility] Depressive disorder (Chronic 10/31/14) ADMISSION SUICIDAL THOUGHTS 06/13/14 OD ATTEMPTS IN PAST Chronic nausea (Chronic) EGD 04/16/16 Dr. 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) Medical History DKA (diabetic ketoacidosis) Acute gallstone pancreatitis Acute pancreatitis Opioid use disorder MAT with methadone Chronic fatigue (07/19/15) Osteomyelitis Dyspareunia in female (07/09/17) Punctate keratitis of both eyes Ulcer of foot due to secondary diabetes Umbilical hernia (03/11/18) 03/17/2018: [facility] Premature surgical menopause JAD/BSO in late 20s, no HRT Hepatitis C 02/14/2016 labwork: undetectable RNA level Surgical History S/P cholecystectomy (06/12/24) Dr Reyes Status post total hysterectomy and bilateral salpingo-oophorectomy (~2006) noncancerous reasons Status post left foot surgery (10/2022) Left fourth metatarsal head excision for chronic ulcer, osteomyelitis ([facility]/Tamia Vidales, DPM) Status post section (~2003) EGD (04/16/16) Dr. Ferrer Family History Mother , 46yo due to kidney & liver failure due to alcohol Substance use disorder Alcohol use disorder Father , 62yo from ALS Substance use disorder Alcohol use disorder ALS (amyotrophic lateral sclerosis) Grandmother Colon cancer Paternal Paternal Uncle Cardiac arrest Substance use disorder Alcohol and Pain Medication Abuse Social History Smoking/Tobacco Use Status: Current every day Tobacco Type: cigarettes Smoking packs per day: 1 Smoking cigarettes per day: 20.0 Tobacco: How many years used: 33 Quit status: considering quitting Smoking risk assessment performed?: Yes Alcohol Intake: never Drug use: Occasionally Substance use type: former substance user and marijuana Details: Pt. 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 Pets and animals: Yes (1 dog, 4 cats) Pets and animals: cat(s) and dog(s) Sexually active: Yes Do you think of yourself as: straight/heterosexual Current gender identity: female Other: 09/2022: pt reports she is engaged What is your relationship status?: How often do you talk on the phone with friends or family?: three or more times per week How often do you get together with friends or relatives?: once per week How often do you attend denominational or anglican services?: decline to answer Do you belong to any clubs or organized social groups?: no Panel score (0-1 are the most socially isolated patients): 2 What type of physical activity do you participate in: none Duration: decline to answer Frequency: decline to answer Seatbelt use: always Helmet use: No (No reason to wear one) Drive intox or ride w/intox car 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
== END 2024-08-25 17:16 | disposition home or self-care (01) ==
PROVIDERS: Emergency Provider Emergency Medicine
DX: E11.621 Type 2 diabetes mellitus with foot ulcer (principal); L97.518 Non-pressure chronic ulcer of other part of right foot with other specified severity; I25.2 Old myocardial infarction; E11.3292 Type 2 diabetes mellitus with mild nonproliferative diabetic retinopathy without macular edema, left eye; E11.40 Type 2 diabetes mellitus with diabetic neuropathy, unspecified; E78.5 Hyperlipidemia, unspecified; F17.210 Nicotine dependence, cigarettes, uncomplicated; Z79.4 Long term (current) use of insulin; Z79.899 Other long term (current) drug therapy
CPT/HCPCS: 36415; 80053; 82805; 85652; 96374; 99284; 73630; 85025; 86140; J1885

== ENCOUNTER 2024-09-19 14:39 | Emergency (ER) | payer OTHER, SELFPAY ==
[2024-09-19] VITALS (34 sets, daily range): BP systolic 98–150; BP diastolic 41–86; PULSE 65–83; RESP 9–22; TEMP 36.2; O2SAT 92–98
--- NOTE | 2024-09-19 14:30 | RT.EKG_ITS ---
APPROVED REPORT Exam: Resting ECG Reason for Exam: Chest Pain Patient Location: E HR:68 bpm ECG Measurements Heart Rate [address] 187 P 33 QRSd 79 QRS 29 QT 417 T 55 QTc 445 Conclusion Sinus rhythm, rate 68 No interval abnormalities No STEMI
--- NOTE | 2024-09-19 15:00 | DI.RAD_ITS ---
Exam(s) XR PORTABLE CHEST AP EXAM: XR PORTABLE CHEST AP CLINICAL HISTORY: chest pain TECHNIQUE: 2D digital imaging was performed. COMPARISON: CT CT ABDOMEN PELVIS W from 06/14/2024 CR XR CHEST 2V PA LATERAL from 07/07/2024 CR,XR XR PORTABLE CHEST AP from 07/18/2024 CR,XR XR PORTABLE CHEST AP from 07/25/2024 FINDINGS: Exam is limited by under penetration. LUNGS: Grossly clear. No pleural abnormality seen. HEART: Enlarged, unchanged. AORTA: Normal diameter. BONES: Unremarkable for age. Soft tissues: Unremarkable. IMPRESSION: Limited exam. No acute findings. DATA REPOSITORY: RADIATION DOSE DELIVERED:
--- NOTE | 2024-09-19 15:28 | W.ED.GENAD ---
Discharge Plan Discharge Details Chief Complaint: Chest Pain Primary Care Provider: Unknown,Unknown ED Provider: Matt Nunez Home Meds and New Rx's Prescriptions: No Action albuterol sulfate 90 mcg/actuation HFA aerosol inhaler 1 - 2 puff Inhalation Q4-6H PRN Qty: 1 1RF Rx Instructions: DISPENSE ALBUTEROL INHALER BRAND COVERED BY INSURANCE metoclopramide HCl 10 mg tablet 10 mg PO TID PRN Rx Instructions: administer 30 minutes before meals ondansetron 8 mg tablet,disintegrating 8 mg PO BID PRN (Reason: nausea and vomiting) Qty: 60 11RF gabapentin 300 mg capsule 300 mg PO HS PRN (Reason: back pain) Qty: 60 0RF Gvoke HypoPen 2-Pack 1 mg/0.2 mL auto-injector 1 mg subcut ONCE Qty: 0.4 1RF Rx Instructions: HYPOGLYCEMIA; as a single dose; may repeat once after 15 minutes if no response methocarbamol 500 mg tablet 1,000 mg PO HS PRN (Reason: muscle spasm) Qty: 90 0RF Rx Instructions: Use lowest effective dose for shortest duration for muscle spasm ipratropium-albuterol 0.5 mg-3 mg(2.5 mg base)/3 mL solution for nebulization 3 ml inhalation QID PRN (Reason: wheezing) Qty: 180 1RF Rx Instructions: During asthma exacerbation, may use preventatively TID, titrating down to QID PRN as wheeze & SOB improve. fluticasone propion-salmeterol [Advair Diskus] 250-50 mcg/dose blister with device 1 inh inhalation BID Qty: 60 1RF Rx Instructions: Please use this during asthma exacerbations, wean off as shortness of breath & wheeze improve. atorvastatin 80 mg tablet 80 mg PO DAILY Qty: 90 3RF (DME) Dexcom G6 Sensor Device See Rx Instructions .ROUTE .COMPLEX Qty: 3 6RF Dose Instruction: USE DIRECTED Rx Instructions: USE DIRECTED methadone [Methadone Intensol] 10 mg/mL concentrate 77 mg PO DAILY alcohol swabs [Alcohol Pads] Pads, Medicated 1 pad Topical QID Qty: 400 3RF naloxone [Narcan] 4 mg/actuation spray,non-aerosol 4 mg intranasal Q2M PRN (Reason: opioid overdose) Qty: 2 0RF Rx Instructions: spray 1 dose into ONE nostril; alternate nostrils w each dose until help arrives (DME) Dexcom G6 Transmitter Device See Rx Instructions .Route Qty: 3 3RF Rx Instructions: As directed pregabalin 200 mg capsule 200 mg PO TID Qty: 90 3RF metoprolol succinate 50 mg tablet extended release 24 hr 50 mg PO DAILY Qty: 30 1RF Rx Instructions: Trial lower dose (50+25=75mg) due to fatigue/SOB (on 100mg) (DME) foam pillow triangular See Rx Instructions .Route .MEDSUPPLY Qty: 1 0RF Rx Instructions: Trial sleeping & resting (legs need elevation) @ 30-40' angle to alleviate SOB/Panic acetaminophen 500 mg tablet 500 - 1,000 mg PO Q8H MDD 3000 mg PRN (Reason: fever or pain) Qty: 180 0RF Rx Instructions: 1 month supply (DME) pen needle, diabetic [BD Ultra-Fine Yamini Pen Needle] 32 gauge x 5/32 needle See Rx Instructions .ROUTE .COMPLEX Qty: 100 0RF Dose Instruction: USE TO ADMINISTER INSULIN ONCE DAILY Rx Instructions: USE TO ADMINISTER INSULIN ONCE DAILY [place] [place] blood-glucose meter Misc See Rx Instructions .Route Qty: 1 0RF Rx Instructions: One Touch meter ([facility] [place] lancets Misc See Rx Instructions .ROUTE .MEDSUPPLY Qty: 400 3RF Rx Instructions: As directed to check blood glucose four times daily. On insulin. Dispense one touch ultra insulin aspart U-100 [Novolog FlexPen U-100 Insulin] 100 unit/mL (3 mL) insulin pen 15 unit subcut AC Qty: 15 3RF Rx Instructions: 10-15 units sliding scale before meals valacyclovir 500 mg tablet 500 mg PO DAILY Qty: 90 3RF (DME) Blood Glucose Test Strip See Rx Instructions .MEDSUPPLY Qty: 400 3RF Rx Instructions: As directed to check blood glucose four times daily. On insulin. Dispense one touch ultra magnesium oxide 400 mg (241.3 mg magnesium) tablet 400 mg PO BID Qty: 180 0RF omeprazole 40 mg capsule,delayed release(DR/EC) 40 mg PO DAILY Qty: 90 3RF nystatin 100,000 unit/gram powder 1 applic Topical BID PRN (Reason: fungal skin infection) Qty: 30 3RF Rx Instructions: Apply powder to affected area under R breast twice daily lorazepam 0.5 mg tablet See Rx Instructions PO DAILY PRN (Reason: dyspnea) Qty: 14 0RF Rx Instructions: Short term increase to BID PRN panic or shortness of breath orally daily PRN; (FYI to Prescriber @ [facility]) insulin degludec [Tresiba FlexTouch U-100] 100 unit/mL (3 mL) insulin pen 30 unit subcut DAILY Patient Comments: takes more than rx'd due to blood sugars being high Rx Instructions: [place]13/[place] [facility] [place] units losartan 25 mg tablet 25 mg PO DAILY spironolactone 25 mg tablet 25 mg PO DAILY polyethylene glycol 3350 [Miralax] 17 gram/dose powder 17 g PO DAILY PRN (Reason: constipation/gastroparesis) Qty: 238 0RF clonidine HCl 0.2 mg tablet 0.2 mg PO HS Patient Comments: TAKE 1 TABLET BY MOUTH EVERY NIGHT AT BEDTIME mirtazapine 15 mg tablet 15 mg PO HS Ajovy Autoinjector 225 mg/1.5 mL auto-injector 225 mg subcut QMONTH Botox 100 unit recon soln 300 unit IM ONCE Rx Instructions: divided among affected muscles clonidine HCl 0.1 mg tablet 0.1 mg PO BID Patient Comments: TAKE 1 TABLET BY MOUTH DURING THE DAY NEEDED AND 1 TABLET AT BEDTIME FOR ANXIETY lurasidone 80 mg tablet 80 mg PO DAILY Patient Comments: TAKE ONE TABLET BY MOUTH EVERY DAY WITH AT LEAST 350 CALORIES ketorolac 10 mg tablet 10 mg PO Q8H PRN (Reason: pain) Qty: 30 0RF Rx Instructions: maximum total duration of 5 days from all oral, intranasal, or parenteral formulations metoprolol succinate 25 mg tablet extended release 24 hr 100 mg PO DAILY Patient Comments: ran out 2 days ago furosemide [Lasix] 40 mg tablet 40 mg PO DAILY Qty: 14 0RF magnesium 250 mg tablet 250 mg PO DAILY Qty: 14 0RF HPI General Date/Time Provider Initiated Documentation: 09/19/24 15:01. Limitations to Documentation: no limitations. Information obtained by: patient. HPI Narrative: 43-year-old female presents with chief complaint of chest pain. Patient has history of insulin-dependent diabetes, coronary artery disease, cirrhosis of the liver, on methadone, here with chief complaint of chest pain. Patient notes pain started around 3 AM and has been intermittent since onset. Pain described as a tightness. She also notes associated palpitations. Patient states chest pain is currently present. She also notes associated fever over the past 2 days. No dysuria but does have intermittent cough. She also notes wound with prolonged healing right great toe as well as wound from cat scratch with delayed healing right dorsal hand that has had some purulent drainage recently. Related Data Home Medications ?Medication ?Instructions ?Recorded ?Confirmed acetaminophen 500 mg tablet 500 - 1,000 mg (1 - 2 x 500 mg) PO 09/24/19 09/19/24 Q8H PRN fever or pain #180 tab-caps alcohol swabs (Alcohol Pads) 1 pad topical QID #400 ea 10/25/22 09/19/24 pen needle, diabetic 32 gauge x #100 ea 06/30/23 09/19/24 (BD Ultra-Fine Yamini Pen Needle) blood-glucose meter #1 ea 08/28/23 09/19/24 lancets #400 ea 08/28/23 09/19/24 clonidine HCl 0.2 mg tablet 0.2 mg PO HS 11/21/23 09/19/24 insulin aspart U-100 100 unit/mL 15 unit (0.15 mL) subcut AC #15 mL 01/05/24 09/19/24 (3 mL) subcutaneous pen (Novolog FlexPen U-100 Insulin aspart) naloxone 4 mg/actuation nasal 4 mg intranasal Q2M PRN opioid 02/13/24 09/19/24 spray (Narcan) overdose #2 ea 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 04/12/24 09/19/24 #90 tab-caps blood sugar diagnostic (Blood #400 ea 04/26/24 09/19/24 Glucose Test strips) magnesium oxide 400 mg (241.3 mg 400 mg PO BID #180 tabs 04/26/24 09/19/24 magnesium) tablet mirtazapine 15 mg tablet 15 mg PO HS 05/03/24 09/19/24 omeprazole 40 mg capsule,delayed 40 mg PO DAILY #90 caps 05/20/24 09/19/24 release nystatin 100,000 unit/gram topical 1 applic topical BID PRN fungal 05/25/24 09/19/24 powder skin infection #30 grams albuterol sulfate 90 mcg/actuation 1 - 2 puff inhalation Q4-6H PRN ##1 05/31/24 09/19/24 aerosol inhaler fluticasone 250 mcg-salmeterol 50 1 inh inhalation BID #60 ea 05/31/24 09/19/24 mcg/dose blistr powdr for inhalation (Advair Diskus) gabapentin 300 mg capsule 300 mg PO HS PRN back pain #60 caps 05/31/24 09/19/24 glucagon 1 mg/0.2 mL subcutaneous 1 mg (0.2 mL) subcut ONCE #0.4 mL 05/31/24 09/19/24 auto-injector (Gvoke HypoPen 2-Pack) ipratropium 0.5 mg-albuterol 3 mg 3 ml inhalation QID PRN wheezing 05/31/24 09/19/24 (2.5 mg base)/3 mL nebulization #180 mL soln methocarbamol 500 mg tablet 1,000 mg (2 x 500 mg) PO HS PRN 05/31/24 09/19/24 muscle spasm #90 tabs metoclopramide HCl 10 mg tablet 10 mg PO TID PRN 05/31/24 09/19/24 ondansetron 8 mg disintegrating 8 mg PO BID PRN nausea and 05/31/24 09/19/24 tablet vomiting #60 tabs fremanezumab-vfrm 225 mg/1.5 mL 225 mg subcut QMONTH 06/07/24 09/19/24 subcutaneous auto-injector (Ajovy) onabotulinumtoxinA 100 unit 300 unit IM ONCE 06/07/24 09/19/24 solution for injection (Botox) lurasidone 80 mg tablet 80 mg PO DAILY 06/08/24 09/19/24 atorvastatin 80 mg tablet 80 mg PO DAILY #90 tabs 06/23/24 09/19/24 blood-glucose sensor (Dexcom G6 #3 ea 06/23/24 09/19/24 Sensor device) methadone 10 mg/mL oral 77 mg PO DAILY 06/23/24 09/19/24 concentrate (Methadone Intensol) ketorolac 10 mg tablet 10 mg PO Q8H PRN pain #30 tabs 06/29/24 09/19/24 blood-glucose transmitter (Dexcom #3 ea 07/07/24 09/19/24 G6 Transmitter device) foam pillow #1 ea 07/07/24 09/19/24 metoprolol succinate 50 mg 50 mg PO DAILY recent [place] #30 tabs 07/07/24 09/19/24 tablet,extended release 24 hr pregabalin 200 mg capsule 200 mg PO TID #90 caps 07/07/24 09/19/24 lorazepam 0.5 mg tablet See Rx Instructions PO DAILY PRN 07/08/24 09/19/24 dyspnea #14 tabs insulin degludec 100 unit/mL (3 30 unit subcut DAILY 07/13/24 09/19/24 mL) subcutaneous pen (Tresiba FlexTouch U-100 insulin) losartan 25 mg tablet 25 mg PO DAILY 07/14/24 09/19/24 spironolactone 25 mg tablet 25 mg PO DAILY 07/14/24 09/19/24 furosemide 40 mg tablet (Lasix) 40 mg PO DAILY #14 tabs 07/18/24 09/19/24 magnesium 250 mg tablet 250 mg PO DAILY #14 tabs 07/18/24 09/19/24 metoprolol succinate 25 mg 100 mg PO DAILY 07/18/24 09/19/24 tablet,extended release 24 hr polyethylene glycol 3350 17 17 g PO DAILY PRN 08/02/24 09/19/24 gram/dose oral powder (Miralax) constipation/gastroparesis #238 grams clonidine HCl 0.1 mg tablet 0.1 mg PO BID 09/19/24 09/19/24 Previous Rx's ?Medication ?Instructions ?Recorded acetaminophen 500 mg tablet 500 - 1,000 mg (1 - 2 x 500 mg) PO 09/24/19 Q8H PRN fever or pain #180 tab-caps alcohol swabs (Alcohol Pads) 1 pad topical QID #400 ea 10/25/22 pen needle, diabetic 32 gauge x #100 ea 06/30/23 (BD Ultra-Fine Yamini Pen Needle) blood-glucose meter #1 ea 08/28/23 lancets #400 ea 08/28/23 insulin aspart U-100 100 unit/mL 15 unit (0.15 mL) subcut AC #15 mL 01/05/24 (3 mL) subcutaneous pen (Novolog FlexPen U-100 Insulin aspart) naloxone 4 mg/actuation nasal 4 mg intranasal Q2M PRN opioid 02/13/24 spray (Narcan) overdose #2 ea 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 04/12/24 #90 tab-caps blood sugar diagnostic (Blood #400 ea 04/26/24 Glucose Test strips) magnesium oxide 400 mg (241.3 mg 400 mg PO BID #180 tabs 04/26/24 magnesium) tablet omeprazole 40 mg capsule,delayed 40 mg PO DAILY #90 caps 05/20/24 release nystatin 100,000 unit/gram topical 1 applic topical BID PRN fungal 05/25/24 powder skin infection #30 grams albuterol sulfate 90 mcg/actuation 1 - 2 puff inhalation Q4-6H PRN ##1 05/31/24 aerosol inhaler fluticasone 250 mcg-salmeterol 50 1 inh inhalation BID #60 ea 05/31/24 mcg/dose blistr powdr for inhalation (Advair Diskus) gabapentin 300 mg capsule 300 mg PO HS PRN back pain #60 caps 05/31/24 glucagon 1 mg/0.2 mL subcutaneous 1 mg (0.2 mL) subcut ONCE #0.4 mL 05/31/24 auto-injector (Gvgoodideazs HypoPen 2-Pack) ipratropium 0.5 mg-albuterol 3 mg 3 ml inhalation QID PRN wheezing 05/31/24 (2.5 mg base)/3 mL nebulization #180 mL soln methocarbamol 500 mg tablet 1,000 mg (2 x 500 mg) PO HS PRN 05/31/24 muscle spasm #90 tabs ondansetron 8 mg disintegrating 8 mg PO BID PRN nausea and 05/31/24 tablet vomiting #60 tabs atorvastatin 80 mg tablet 80 mg PO DAILY #90 tabs 06/23/24 blood-glucose sensor (Dexcom G6 #3 ea 06/23/24 Sensor device) ketorolac 10 mg tablet 10 mg PO Q8H PRN pain #30 tabs 06/29/24 blood-glucose transmitter (Dexcom #3 ea 07/07/24 G6 Transmitter device) foam pillow #1 ea 07/07/24 metoprolol succinate 50 mg 50 mg PO DAILY recent [place] #30 tabs 07/07/24 tablet,extended release 24 hr pregabalin 200 mg capsule 200 mg PO TID #90 caps 07/07/24 lorazepam 0.5 mg tablet See Rx Instructions PO DAILY PRN 07/08/24 dyspnea #14 tabs furosemide 40 mg tablet (Lasix) 40 mg PO DAILY #14 tabs 07/18/24 magnesium 250 mg tablet 250 mg PO DAILY #14 tabs 07/18/24 polyethylene glycol 3350 17 17 g PO DAILY PRN 08/02/24 gram/dose oral powder (Miralax) constipation/gastroparesis #238 grams Allergies Allergy/AdvReac Type Severity Reaction Status Date / Time Penicillins Allergy Severe lip and Verified 09/19/24 14:42 facial swelling lamotrigine (From Lamictal) Allergy Unknown Skin Rash Verified 09/19/24 14:42 clindamycin AdvReac Severe Nausea & Verified 09/19/24 14:42 vomiting aspirin AdvReac Intermediate nausea/pain Verified 09/19/24 14:42 General Stated Complaint: Chest Pain CARLOS: 2 Review of Systems All systems reviewed & are unremarkable except as noted in HPI and below Constitutional Constitutional: Reports as per HPI and Reports fever(s) Cardiovascular Cardiovascular: Denies leg edema and Denies dyspnea Respiratory Respiratory: Reports as per HPI and Denies dyspnea Exam Const General: cooperative and no acute distress HENMT Mouth: moist mucous membranes Eyes Conjunctivae: normal conjunctivae Sclera: normal sclerae Neck Neck: trachea midline and supple Resp Effort & Inspection: normal respiratory effort, able to speak in complete sentences and not labored Auscultation: no rales, rhonchi lower bilaterally and no wheezes Cardio Rate: regular rate and not tachycardic Rhythm: regular rhythm Heart Sounds: no murmurs GI Palpation: soft, not firm, no guarding, no masses, not rigid and nontender Skin Wounds: wounds noted (rt great toe, and rt hand no fluctuance, drainage or surrounding erythem) Neuro General: patient alert, patient awake, patient oriented x3 and tone normal Extrem General: no edema Psych Appearance: grossly normal Mental Status: mental status grossly normal Affect: blunted Course Vital Signs Vital signs: Vital Signs Temperature 36.2 C L 09/19/24 14:41 Pulse 70 09/19/24 14:41 Respiratory Rate 9 L 09/19/24 14:41 Blood Pressure 150/41 H 09/19/24 14:41 Pulse Oximetry 98 09/19/24 14:41 Temperature 36.2 C L 09/19/24 14:41 Temperature Source Temporal Artery Scan 09/19/24 14:41 Pulse 68 09/19/24 15:16 Pulse 72 09/19/24 15:20 Respiratory Rate 16 09/19/24 15:20 Respiratory Effort Normal, Non-Labored 09/19/24 15:09 Respiratory Depth Normal 09/19/24 15:09 Respiratory Pattern Normal 09/19/24 15:09 Blood Pressure 128/83 09/19/24 15:16 Blood Pressure Mean 98 09/19/24 15:16 Blood Pressure Position Sitting 09/19/24 14:41 Pulse Oximetry 95 09/19/24 15:20 Oxygen Delivery Method Room Air 09/19/24 14:41 Oxygen Flow Rate 0 09/19/24 14:41 Pain Level 6 09/19/24 15:09 Medical Decision Making 0??43-year-old female with multiple medical problems including history of poorly controlled insulin-dependent diabetes, coronary artery disease, smoker, cirrhosis of the liver, here with chest pain, intermittent since 3 AM with associated palpitations and generally feeling off. Patient also with fever over the past couple days. She has had recent cough. Patient is saturating well and in no respiratory distress. Normotensive. Not febrile but did take ibuprofen and Tylenol earlier today. Multiple skin ulcers on her feet. Right great toe ulcer with delayed healing and no signs of active infection. Patient also with wound from cat scratch right dorsal hand with delayed healing. Patient has no lymphadenitis on exam. Will consider disseminated cat scratch disease if source of fever not identified on urinalysis and chest x-ray. Consider ACS. Screening EKG was reviewed and interpreted by me: Please report, sinus rhythm 60 bpm, no STEMI. Plan to check troponin and trend. Consider pulmonary embolism. Patient is low risk by Wells criteria. Will check D-dimer. 1603 --chest x-ray interpreted by radiology: Portable exam. Limited exam. No acute findings. 1622 -- Initial trop neg. 1632 -- Care signed out to Dr. Wallace. Lab Data Lab results reviewed: Yes I reviewed the patient's lab results. Labs: Laboratory Tests Range/Units 09/19/24 15:09 Sodium (136-145) mmol/L 135 L Potassium (3.5-5.1) mmol/L 4.7 Chloride (98-107) mmol/L 96 L Carbon Dioxide (21.0-32.0) mmol/L 31.3 Anion Gap (3-11) mmol/L 7.7 BUN (7-18) mg/dL 21 H Creatinine (0.55-1.02) mg/dL 1.2 H Est GFR (CKD-EPI 2020) (mL/min/1.73m2) 56.89 Glucose (74-106) mg/dL 338 H Calcium (8.5-10.1) mg/dL 9.7 Total Bilirubin (0.2-1.0) mg/dL 0.26 AST (15-37) U/L 19 ALT (14-59) U/L 23 Alkaline Phosphatase (46-116) U/L 227 H Troponin I (<or=51) ng/L 4 Total Protein (6.4-8.2) g/dL 8.6 H Albumin (3.4-5.0) g/dL 3.9 Quality:SDOH Health Related Social Needs: No Data to Display PFSH All Active Problems Diabetic foot ulcer (Acute) Orthopnea (Acute) Edema of both lower legs (Acute) l>r .. chf? INACTIVITY? Myocardial infarction acute (Acute) Fatty infiltration of liver (Acute) Hx cirrhosis? 2' pancreatitis (05/2024)? Elevated troponin level not due myocardial infarction (Acute ~05/2024) ?type 2 ACS Acute postoperative abdominal pain (Acute) Diabetic ketoacidosis (Acute ~05/2024) Corneal abrasion (Acute) Obstructive sleep apnea of adult (Acute) [facility] 12/23/23 Muscle spasm of left lower extremity (Acute) Muscle spasm of back (Acute) Diabetic cataract of right eye (Acute) Ulcer of right foot limited to breakdown of skin (Acute 04/16/23) [facility] Ulcer of left foot, limited to breakdown of skin (Acute 04/16/23) [facility] Iron deficiency (Acute) 03/2023 iron studies indicating deficiency (NOT anemic) Migraine (Chronic) [facility] Chronic constipation (Chronic) [facility] Type 2 diabetes mellitus, with long-term current use of insulin (Chronic) With neuropathy & retinopathy (left, mild) Obesity (Chronic) Cirrhosis of liver (Chronic) [facility] Diabetic neuropathy (Acute) Asthma (Chronic) Tobacco use disorder (Chronic) Started smoking age 9 Poorly controlled type 2 diabetes mellitus (Chronic 03/23/18) Polypharmacy (Chronic 12/14/15) Mild nonproliferative diabetic retinopathy associated with type 2 diabetes mellitus (Chronic 01/22/16) Mental health disorder (Chronic) Pt reports being diagnosed with bipolar disorder, disassociative disorder, anxiety, & multiple personality disorder Hypomagnesemia (Chronic 09/30/16) Hyperlipidemia (Chronic 09/30/16) 10-year ASCVD risk = unable to calculate due to not being age 40+ however dx T2DM, so Rx for statin 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 Jimenez [facility] 2023: [facility] Depressive disorder (Chronic 10/31/14) ADMISSION SUICIDAL THOUGHTS 06/13/14 OD ATTEMPTS IN PAST Chronic nausea (Chronic) EGD 04/16/16 Dr. 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) Medical History DKA (diabetic ketoacidosis) Acute gallstone pancreatitis Acute pancreatitis Opioid use disorder MAT with methadone Chronic fatigue (07/19/15) Osteomyelitis Dyspareunia in female (07/09/17) Punctate keratitis of both eyes Ulcer of foot due to secondary diabetes Umbilical hernia (03/11/18) 03/17/2018: [facility] Premature surgical menopause JAD/BSO in late 20s, no HRT Hepatitis C 02/14/2016 labwork: undetectable RNA level Surgical History S/P cholecystectomy (06/12/24) Dr Reyes Status post total hysterectomy and bilateral salpingo-oophorectomy (~2006) noncancerous reasons Status post left foot surgery (10/2022) Left fourth metatarsal head excision for chronic ulcer, osteomyelitis ([facility]/Tamia Vidales DPM) Status post section (~2003) EGD (04/16/16) Dr. Ferrer Family History Mother , 46yo due to kidney & liver failure due to alcohol Substance use disorder Alcohol use disorder Father , 62yo from ALS Substance use disorder Alcohol use disorder ALS (amyotrophic lateral sclerosis) Grandmother Colon cancer Paternal Paternal Uncle Cardiac arrest Substance use disorder Alcohol and Pain Medication Abuse Social History Smoking/Tobacco Use Status: Current every day Tobacco Type: cigarettes Smoking packs per day: 1 Smoking cigarettes per day: 20.0 Tobacco: How many years used: 33 Quit status: considering quitting Smoking risk assessment performed?: Yes Alcohol Intake: never Drug use: Occasionally Substance use type: former substance user and marijuana Details: Pt. 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 Pets and animals: Yes (1 dog, 4 cats) Pets and animals: cat(s) and dog(s) Sexually active: Yes Do you think of yourself as: straight/heterosexual Current gender identity: female Other: 09/2022: pt reports she is engaged What is your relationship status?: How often do you talk on the phone with friends or family?: three or more times per week How often do you get together with friends or relatives?: once per week How often do you attend scientology or alevism services?: decline to answer Do you belong to any clubs or organized social groups?: no Panel score (0-1 are the most socially isolated patients): 2 What type of physical activity do you participate in: none Duration: decline to answer Frequency: decline to answer Seatbelt use: always Helmet use: No (No reason to wear one) 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
[2024-09-19 15:29] LABS: Absolute Basophil Count 0.08 10^3/uL (0.0-0.2); Absolute Lymphocyte Count 3.35 10^3/uL (1.2-3.4); Absolute Monocyte Count 0.78 10^3/uL (0.1-0.8); Absolute Neutrophil Count 9.22 10^3/uL (1.2-6.7); Basophils % 0.6 %; HCT 48.3 % (36.0-46.0); HGB 14.7 g/dL (11.2-15.7); Immature Grans % 0.7 %; Lymphocytes % 24.5 %; MCH 23.2 pg (27.0-33.0); MCHC 30.4 % (32.0-36.0); MCV 76 fL (80-95); Monocytes % 5.7 %; Neutrophils % 67.5 %; Platelet Count 233 10^3/uL (130-400); RBC 6.34 10^6/uL (3.93-5.22); RDW 17.8 % (11.7-14.6); RDW-SD 46.3 fL; WBC 13.66 10^3/uL (4.4-10.8)
[2024-09-19 15:46] LABS: ALT 23 U/L (14-59); AST 19 U/L (15-37); Albumin 3.9 g/dL (3.4-5.0); Alkaline Phosphatase 227 U/L (46-116); Anion Gap 7.7 mmol/L (3-11); BUN 21 mg/dL (7-18); Bilirubin, Total 0.26 mg/dL (0.2-1.0); CO2 31.3 mmol/L (21.0-32.0); CREATININE 1.2 mg/dL (0.55-1.02); Calcium 9.7 mg/dL (8.5-10.1); Chloride 96 mmol/L (98-107); Estimated GFR 56.89 (mL/min/1.73m2); Glucose 338 mg/dL (74-106); Potassium 4.7 mmol/L (3.5-5.1); Sodium 135 mmol/L (136-145); Total Protein 8.6 g/dL (6.4-8.2); Troponin I 4 ng/L (<or=51)
[2024-09-19 16:00] LABS: D-Dimer 490 ng/mlFEU (<500)
[2024-09-19 16:31] LABS: Absolute Eosinophil Count 0.14 10^3/uL (0.0-0.7); Diff Comment RBC Morph Reviewed; Hypochromasia 1+
[2024-09-19 16:32] LABS: Polychromasia Present; Stomatocytes 2+
[2024-09-19 16:45] LABS: Bilirubin Negative (Negative); Blood Negative (Negative); Clarity Clear (Clear); Glucose >=1000 mg/dL (Negative); Ketones Negative (Negative); Leukocyte Esterase Negative (Negative); Nitrite Negative (Negative); Urobilinogen 0.2 mg/dL (Up to 0.2); pH 5.5 (5-8)
[2024-09-19 17:08] LABS: WBC Negative HPF (0-5)
[2024-09-19 17:09] LABS: Bacteria Negative HPF (Negative); C & S Indicated? No; Casts Negative LPF (Negative); Crystals Negative HPF (Negative); Epithelial Cells Rare HPF (Negative); Mucus Negative (Negative); Other Cells Negative (Negative); RBC Negative HPF (0-2)
[2024-09-19 17:28] LABS: Troponin I 4 ng/L (<or=51)
--- NOTE | 2024-09-19 17:47 | ED.PROG_ITS ---
Date of service: 09/19/24 Time of Service: 16:00 Medical Decision Making This is a 43-year-old female patient presenting for evaluation of intermittent chest pain since 3 AM as well as a nonhealing cat scratch wound on her right hand with subjective fevers. At the time that I took over her care, her workup has been reassuring with negative troponins, nonischemic EKG and a normal chest x-ray. Her disposition is pending reevaluation after delta troponin. If normal, anticipate that this patient should be treated for cat scratch disease, disseminated/fever of unknown origin. She does have a mild leukocytosis to 13.6, laboratory studies otherwise reassuring including a negative D-dimer and a noninfectious urine. The patient had 2 troponins, 4 each time with no delta change, and on reassessment the patient reports that she is feeling improved and is desiring of discharge home. She does have numerous risk factors, and a third delta troponin would not be unreasonable but the patient is not desiring to stay in the hospital for this laboratory study. Given the duration of time since the onset of symptoms and her otherwise reassuring physical examination I feel that 2 troponins is reasonable given the lack of delta change. I provided the patient with the first dose of azithromycin and rifampin as well as prescriptions for same for a 10-day course. The patient will follow-up with her outpatient providers to discuss any symptoms that change, worsen, or persist. At this time, the patient has had a full medical evaluation and is safe for discharge to home. They are hemodynamically stable, ambulatory, and tolerating PO. They are understanding of the follow-up plan and return precautions. They left our facility without incident. Aspen Perry MD Medical Records Medical records reviewed: Yes I reviewed the patient's medical records. Lab Data Lab results reviewed: Yes I reviewed the patient's lab results. Quality:SDOH Health Related Social Needs: No Data to Display Discharge Plan Disposition Patient Disposition: Home Condition: Stable Discharge Details Clinical Impression: Cat scratch fever, Diabetic foot ulcer, Diabetic neuropathy, Gastroparesis, Hyperlipidemia, Poorly controlled type 2 diabetes mellitus, Cirrhosis of liver, Obstructive sleep apnea of adult, Chest pain of uncertain etiology Primary Care Provider: Unknown,Unknown ED Provider: Aspen Perry Home Meds and New Rx's Prescriptions: New azithromycin 250 mg tablet 250 mg PO DAILY 9 Days Qty: 9 0RF Rx Instructions: start on day 2 of therapy rifampin 300 mg capsule 300 mg PO Q12H 9 Days Qty: 18 0RF No Action albuterol sulfate 90 mcg/actuation HFA aerosol inhaler 1 - 2 puff Inhalation Q4-6H PRN Qty: 1 1RF Rx Instructions: DISPENSE ALBUTEROL INHALER BRAND COVERED BY INSURANCE metoclopramide HCl 10 mg tablet 10 mg PO TID PRN Rx Instructions: administer 30 minutes before meals ondansetron 8 mg tablet,disintegrating 8 mg PO BID PRN (Reason: nausea and vomiting) Qty: 60 11RF gabapentin 300 mg capsule 300 mg PO HS PRN (Reason: back pain) Qty: 60 0RF Gvoke HypoPen 2-Pack 1 mg/0.2 mL auto-injector 1 mg subcut ONCE Qty: 0.4 1RF Rx Instructions: HYPOGLYCEMIA; as a single dose; may repeat once after 15 minutes if no response methocarbamol 500 mg tablet 1,000 mg PO HS PRN (Reason: muscle spasm) Qty: 90 0RF Rx Instructions: Use lowest effective dose for shortest duration for muscle spasm ipratropium-albuterol 0.5 mg-3 mg(2.5 mg base)/3 mL solution for nebulization 3 ml inhalation QID PRN (Reason: wheezing) Qty: 180 1RF Rx Instructions: During asthma exacerbation, may use preventatively TID, titrating down to QID PRN as wheeze & SOB improve. fluticasone propion-salmeterol [Advair Diskus] 250-50 mcg/dose blister with device 1 inh inhalation BID Qty: 60 1RF Rx Instructions: Please use this during asthma exacerbations, wean off as shortness of breath & wheeze improve. atorvastatin 80 mg tablet 80 mg PO DAILY Qty: 90 3RF (DME) Dexcom G6 Sensor Device See Rx Instructions .ROUTE .COMPLEX Qty: 3 6RF Dose Instruction: USE DIRECTED Rx Instructions: USE DIRECTED methadone [Methadone Intensol] 10 mg/mL concentrate 77 mg PO DAILY alcohol swabs [Alcohol Pads] Pads, Medicated 1 pad Topical QID Qty: 400 3RF naloxone [Narcan] 4 mg/actuation spray,non-aerosol 4 mg intranasal Q2M PRN (Reason: opioid overdose) Qty: 2 0RF Rx Instructions: spray 1 dose into ONE nostril; alternate nostrils w each dose until help arrives (DME) CoreDialcom G6 Transmitter Device See Rx Instructions .Route Qty: 3 3RF Rx Instructions: As directed pregabalin 200 mg capsule 200 mg PO TID Qty: 90 3RF metoprolol succinate 50 mg tablet extended release 24 hr 50 mg PO DAILY Qty: 30 1RF Rx Instructions: Trial lower dose (50+25=75mg) due to fatigue/SOB (on 100mg) (DME) foam pillow triangular See Rx Instructions .Route .MEDSUPPLY Qty: 1 0RF Rx Instructions: Trial sleeping & resting (legs need elevation) @ 30-40' angle to alleviate SOB/Panic acetaminophen 500 mg tablet 500 - 1,000 mg PO Q8H MDD 3000 mg PRN (Reason: fever or pain) Qty: 180 0RF Rx Instructions: 1 month supply (DME) pen needle, diabetic [BD Ultra-Fine Yamini Pen Needle] 32 gauge x 5/32 needle See Rx Instructions .ROUTE .COMPLEX Qty: 100 0RF Dose Instruction: USE TO ADMINISTER INSULIN ONCE DAILY Rx Instructions: USE TO ADMINISTER INSULIN ONCE DAILY (DME) blood-glucose meter Misc See Rx Instructions .Route Qty: 1 0RF Rx Instructions: One Touch meter (DME) lancets Misc See Rx Instructions .ROUTE .MEDSUPPLY Qty: 400 3RF Rx Instructions: As directed to check blood glucose four times daily. On insulin. Dispense one touch ultra insulin aspart U-100 [Novolog FlexPen U-100 Insulin] 100 unit/mL (3 mL) insulin pen 15 unit subcut AC Qty: 15 3RF Rx Instructions: 10-15 units sliding scale before meals valacyclovir 500 mg tablet 500 mg PO DAILY Qty: 90 3RF (DME) Blood Glucose Test Strip See Rx Instructions .MEDSUPPLY Qty: 400 3RF Rx Instructions: As directed to check blood glucose four times daily. On insulin. Dispense one touch ultra magnesium oxide 400 mg (241.3 mg magnesium) tablet 400 mg PO BID Qty: 180 0RF omeprazole 40 mg capsule,delayed release(DR/EC) 40 mg PO DAILY Qty: 90 3RF nystatin 100,000 unit/gram powder 1 applic Topical BID PRN (Reason: fungal skin infection) Qty: 30 3RF Rx Instructions: Apply powder to affected area under R breast twice daily lorazepam 0.5 mg tablet See Rx Instructions PO DAILY PRN (Reason: dyspnea) Qty: 14 0RF Rx Instructions: Short term increase to BID PRN panic or shortness of breath orally daily PRN; (FYI to Prescriber @ [facility]) insulin degludec [Tresiba FlexTouch U-100] 100 unit/mL (3 mL) insulin pen 30 unit subcut DAILY Patient Comments: takes more than rx'd due to blood sugars being high Rx Instructions: 07/13/2024 [place] [facility] 30 units losartan 25 mg tablet 25 mg PO DAILY spironolactone 25 mg tablet 25 mg PO DAILY polyethylene glycol 3350 [Miralax] 17 gram/dose powder 17 g PO DAILY PRN (Reason: constipation/gastroparesis) Qty: 238 0RF clonidine HCl 0.2 mg tablet 0.2 mg PO HS Patient Comments: TAKE 1 TABLET BY MOUTH EVERY NIGHT AT BEDTIME mirtazapine 15 mg tablet 15 mg PO HS Ajovy Autoinjector 225 mg/1.5 mL auto-injector 225 mg subcut QMONTH Botox 100 unit recon soln 300 unit IM ONCE Rx Instructions: divided among affected muscles clonidine HCl 0.1 mg tablet 0.1 mg PO BID Patient Comments: TAKE 1 TABLET BY MOUTH DURING THE DAY NEEDED AND 1 TABLET AT BEDTIME FOR ANXIETY lurasidone 80 mg tablet 80 mg PO DAILY Patient Comments: TAKE ONE TABLET BY MOUTH EVERY DAY WITH AT LEAST 350 CALORIES ketorolac 10 mg tablet 10 mg PO Q8H PRN (Reason: pain) Qty: 30 0RF Rx Instructions: maximum total duration of 5 days from all oral, intranasal, or parenteral formulations metoprolol succinate 25 mg tablet extended release 24 hr 100 mg PO DAILY Patient Comments: ran out 2 days ago furosemide [Lasix] 40 mg tablet 40 mg PO DAILY Qty: 14 0RF magnesium 250 mg tablet 250 mg PO DAILY Qty: 14 0RF Discharge Instructions Instructions: Cat Scratch Disease (DC) Additional Instructions: You were seen in the emergency department today for evaluation of fever and chest pain, and were found to have symptoms concerning for cat scratch disease. 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 I have started you on 2 antibiotics for your cat scratch disease, you need to take these for the next 10 days until they are gone, even if you start to feel better. If your fevers are worsening, or you have other concerning symptoms you need to be reevaluated by your primary care provider. Thank you for allowing us to be part of your care.
[2024-09-19] MEDS: Azithromycin 250 MG TAB 500 MG PO (18:18)
[2024-09-19] MEDS: rifAMPin 300 MG CAP PO (18:20)
--- NOTE | 2024-09-20 17:29 | W.ED.FU ---
Date of service: 09/20/24 Time of Service: 17:30 Follow Up Plan: Patient was seen by my colleague Dr. Nunez and Dr. Perry. Concern for cat scratch fever. She was prescribed azithromycin and right Valles pin. Unfortunately the patient is on lurasidone, which is contraindicated for use with rifampin. I did contact the patient, she had not yet picked up the prescriptions. We discussed taking lurasidone and holding on the rifampin, we discussed holding the lurasidone and taking the right Valles pin. At this time weighing the risks and benefits, understanding both aspects, patient has personally elected to hold the lurasidone and take the rifampin. She will follow-up closely with her PCP. We discussed this with pharmacy, and they will fill the prescriptions. I have extensively reviewed the treatment plan and discharge instructions with the patient. I have addressed all patient concerns at this time. The patient was made aware of what symptoms to monitor for that would warrant a return to the emergency department. Discussed the plan with the patient, they demonstrate verbal understanding and agreement with our assessment and plan at this time. The documentation in this chart was dictated using [employer] dictation software. Please excuse any dictation errors.
== END 2024-09-19 18:26 | disposition home or self-care (01) ==
PROVIDERS: Student in an Organized Health Care Education/Training Program; Emergency Provider Emergency Medicine
DX: A28.1 Cat-scratch disease (principal); R07.9 Chest pain, unspecified; R00.2 Palpitations; I50.9 Heart failure, unspecified; I25.2 Old myocardial infarction; E11.40 Type 2 diabetes mellitus with diabetic neuropathy, unspecified; I25.10 Atherosclerotic heart disease of native coronary artery without angina pectoris; E78.5 Hyperlipidemia, unspecified; K74.60 Unspecified cirrhosis of liver; Z79.4 Long term (current) use of insulin; Z79.899 Other long term (current) drug therapy; Z87.891 Personal history of nicotine dependence
CPT/HCPCS: 00123; 80053; 87426; 93005; 99284; 71045; 81003; 81015; 84484; 85025; 85379; 93010

== ENCOUNTER 2024-09-28 12:41 | Emergency (ER) | payer MEDICARE, SELFPAY ==
[2024-09-28] VITALS (7 sets, daily range): BP systolic 132–149; BP diastolic 85–96; PULSE 65–86; RESP 15–25; TEMP 36.4; O2SAT 94–97
[2024-09-28 13:34] LABS: COVID-19 PCR Negative (Negative); Influenza A PCR Negative (Negative); Influenza B PCR Negative (Negative); RSV PCR Negative (Negative)
[2024-09-28 13:37] LABS: Source Nasopharynx
--- NOTE | 2024-09-28 15:14 | ED.GENADUL_ITS ---
Discharge Plan Disposition Patient Disposition: Eloped Condition: Improving Discharge Details Clinical Impression: Migraine Primary Care Provider: Unknown,Unknown ED Provider: Georgina Aguilar Home Meds and New Rx's Prescriptions: Continued albuterol sulfate 90 mcg/actuation HFA aerosol inhaler 1 - 2 puff Inhalation Q4-6H PRN Qty: 1 1RF Rx Instructions: DISPENSE ALBUTEROL INHALER BRAND COVERED BY INSURANCE metoclopramide HCl 10 mg tablet 10 mg PO TID PRN Rx Instructions: administer 30 minutes before meals ondansetron 8 mg tablet,disintegrating 8 mg PO BID PRN (Reason: nausea and vomiting) Qty: 60 11RF gabapentin 300 mg capsule 300 mg PO HS PRN (Reason: back pain) Qty: 60 0RF Gvoke HypoPen 2-Pack 1 mg/0.2 mL auto-injector 1 mg subcut ONCE Qty: 0.4 1RF Rx Instructions: HYPOGLYCEMIA; as a single dose; may repeat once after 15 minutes if no response methocarbamol 500 mg tablet 1,000 mg PO HS PRN (Reason: muscle spasm) Qty: 90 0RF Rx Instructions: Use lowest effective dose for shortest duration for muscle spasm ipratropium-albuterol 0.5 mg-3 mg(2.5 mg base)/3 mL solution for nebulization 3 ml inhalation QID PRN (Reason: wheezing) Qty: 180 1RF Rx Instructions: During asthma exacerbation, may use preventatively TID, titrating down to QID PRN as wheeze & SOB improve. fluticasone propion-salmeterol [Advair Diskus] 250-50 mcg/dose blister with device 1 inh inhalation BID Qty: 60 1RF Rx Instructions: Please use this during asthma exacerbations, wean off as shortness of breath & wheeze improve. atorvastatin 80 mg tablet 80 mg PO DAILY Qty: 90 3RF (DME) Dexcom G6 Sensor Device See Rx Instructions .ROUTE .COMPLEX Qty: 3 6RF Dose Instruction: USE DIRECTED Rx Instructions: USE DIRECTED methadone [Methadone Intensol] 10 mg/mL concentrate 77 mg PO DAILY alcohol swabs [Alcohol Pads] Pads, Medicated 1 pad Topical QID Qty: 400 3RF naloxone [Narcan] 4 mg/actuation spray,non-aerosol 4 mg intranasal Q2M PRN (Reason: opioid overdose) Qty: 2 0RF Rx Instructions: spray 1 dose into ONE nostril; alternate nostrils w each dose until help arrives (DME) [employer] Fusion G6 Transmitter Device See Rx Instructions .Route Qty: 3 3RF Rx Instructions: As directed pregabalin 200 mg capsule 200 mg PO TID Qty: 90 3RF metoprolol succinate 50 mg tablet extended release 24 hr 50 mg PO DAILY Qty: 30 1RF Rx Instructions: Trial lower dose (50+25=75mg) due to fatigue/SOB (on 100mg) (DME) foam pillow triangular See Rx Instructions .Route .MEDSUPPLY Qty: 1 0RF Rx Instructions: Trial sleeping & resting (legs need elevation) @ 30-40' angle to alleviate SOB/Panic acetaminophen 500 mg tablet 500 - 1,000 mg PO Q8H MDD 3000 mg PRN (Reason: fever or pain) Qty: 180 0RF Rx Instructions: 1 month supply (DME) pen needle, diabetic [BD Ultra-Fine Yamini Pen Needle] 32 gauge x 5/32 needle See Rx Instructions .ROUTE .COMPLEX Qty: 100 0RF Dose Instruction: USE TO ADMINISTER INSULIN ONCE DAILY Rx Instructions: USE TO ADMINISTER INSULIN ONCE DAILY (DME) blood-glucose meter Misc See Rx Instructions .Route Qty: 1 0RF Rx Instructions: [place] [place] lancets Misc See Rx Instructions .ROUTE .MEDSUPPLY Qty: 400 3RF Rx Instructions: As directed to check blood glucose four times daily. On insulin. Dispense one touch ultra insulin aspart U-100 [Novolog FlexPen U-100 Insulin] 100 unit/mL (3 mL) ins ulin pen 15 unit subcut AC Qty: 15 3RF Rx Instructions: 10-15 units sliding scale before meals valacyclovir 500 mg tablet 500 mg PO DAILY Qty: 90 3RF (DME) Blood Glucose Test Strip See Rx Instructions .MEDSUPPLY Qty: 400 3RF Rx Instructions: As directed to check blood glucose four times daily. On insulin. Dispense one touch ultra magnesium oxide 400 mg (241.3 mg magnesium) tablet 400 mg PO BID Qty: 180 0RF omeprazole 40 mg capsule,delayed release(DR/EC) 40 mg PO DAILY Qty: 90 3RF nystatin 100,000 unit/gram powder 1 applic Topical BID PRN (Reason: fungal skin infection) Qty: 30 3RF Rx Instructions: Apply powder to affected area under R breast twice daily lorazepam 0.5 mg tablet See Rx Instructions PO DAILY PRN (Reason: dyspnea) Qty: 14 0RF Rx Instructions: Short term increase to BID PRN panic or shortness of breath orally daily PRN; (FYI to Prescriber @ [facility]) insulin degludec [Tresiba FlexTouch U-100] 100 unit/mL (3 mL) insulin pen 30 unit subcut DAILY Patient Comments: takes more than rx'd due to blood sugars being high Rx Inst[place]: [place] [facility] [place] units losartan 25 mg tablet 25 mg PO DAILY spironolactone 25 mg tablet 25 mg PO DAILY polyethylene glycol 3350 [Miralax] 17 gram/dose powder 17 g PO DAILY PRN (Reason: constipation/gastroparesis) Qty: 238 0RF clonidine HCl 0.2 mg tablet 0.2 mg PO HS Patient Comments: TAKE 1 TABLET BY MOUTH EVERY NIGHT AT BEDTIME mirtazapine 15 mg tablet 15 mg PO HS Ajovy Autoinjector 225 mg/1.5 mL auto-injector 225 mg subcut QMONTH Botox 100 unit recon soln 300 unit IM ONCE Rx Instructions: divided among affected muscles clonidine HCl 0.1 mg tablet 0.1 mg PO BID Patient Comments: TAKE 1 TABLET BY MOUTH DURING THE DAY NEEDED AND 1 TABLET AT BEDTIME FOR ANXIETY lurasidone 80 mg tablet 80 mg PO DAILY Patient Comments: TAKE ONE TABLET BY MOUTH EVERY DAY WITH AT LEAST 350 CALORIES metoprolol succinate 25 mg tablet extended release 24 hr 100 mg PO DAILY Patient Comments: ran out 2 days ago furosemide [Lasix] 40 mg tablet 40 mg PO DAILY Qty: 14 0RF magnesium 250 mg tablet 250 mg PO DAILY Qty: 14 0RF Discharge Instructions Instructions: Headache, Adult ED Additional Instructions: Call your primary care doctor in the morning to schedule an appointment for within the next 72 hours to followup on your visit here. Take all of your usual medications. Return to the emergency department for new or worsening symptoms including feve r, neck pain, vision changes, numbness, weakness, vertigo, of if your headache returns. HPI General Mode of arrival: ambulatory . Date/Time Provider Initiated Documentation: 09/28/24 12:53 . Limitations to Documentation: no limitations . Information obtained by: patient . HPI Narrative: 43yo F with hx of migraines presenting with headache x 36 hours consistent with her typical migraine. Pain is sharp, diffuse, worse with light and sound. Has tried immitrex and tylenol and ibuprofen at home without significant improvement. No numbness, tingling, weakness, vertigo, or vision changes. No fevers or chills. Has had nasal congestion and a few loose non-bloody stools over the past several days. Otherwise in her usual state of health. Related Data Home Medications ?Medication ?Instructions ?Recorded ?Confirmed acetaminophen 500 mg tablet 500 - 1,000 mg (1 - 2 x 500 mg) PO 09/24/19 09/28/24 Q8H PRN fever or pain #180 tab-caps alcohol swabs (Alcohol Pads) 1 pad topical QID #400 ea 10/25/22 09/28/24 pen needle, diabetic 32 gauge x #100 ea 06/30/23 09/28/24/32 (BD Ultra-Fine Yamini Pen Needle) blood-glucose meter #1 ea 08/28/23 09/28/24 lancets #400 ea 08/28/23 09/28/24 clonidine HCl 0.2 mg tablet 0.2 mg PO HS 11/21/23 09/28/24 insulin aspart U-100 100 unit/mL 15 unit (0.15 mL) subcut AC #15 mL 01/05/24 09/28/24 (3 mL) subcutaneous pen (Novolog FlexPen U-100 Insulin aspart) naloxone 4 mg/actuation nasal 4 mg intranasal Q2M PRN opioid 02/13/24 09/28/24 spray (Narcan) overdose #2 ea 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 04/12/24 09/28/24 #90 tab-caps blood sugar diagnostic (Blood #400 ea 04/26/24 09/28/24 Glucose Test strips) magnesium oxide 400 mg (241.3 mg 400 mg PO BID #180 tabs 04/26/24 09/28/24 magnesium) tablet mirtazapine 15 mg tablet 15 mg PO HS 05/03/24 09/28/24 omeprazole 40 mg capsule,delayed 40 mg PO DAILY #90 caps 05/20/24 09/28/24 release nystatin 100,000 unit/gram topical 1 applic topical BID PRN fungal 05/25/24 09/28/24 powder skin infection #30 grams albuterol sulfate 90 mcg/actuation 1 - 2 puff inhalation Q4-6H PRN ##1 05/31/24 09/28/24 aerosol inhaler fluticasone 250 mcg-salmeterol 50 1 inh inhalation BID #60 ea 05/31/24 09/28/24 mcg/dose blistr powdr for inhalation (Advair Diskus) gabapentin 300 mg capsule 300 mg PO HS PRN back pain #60 caps 05/31/24 09/28/24 glucagon 1 mg/0.2 mL subcutaneous 1 mg (0.2 mL) subcut ONCE #0.4 mL 05/31/24 09/28/24 auto-injector (Gvoke HypoPen 2-Pack) ipratropium 0.5 mg-albuterol 3 mg 3 ml inhalation QID PRN wheezing 05/31/24 09/28/24 (2.5 mg base)/3 mL nebulization #180 mL soln methocarbamol 500 mg tablet 1,000 mg (2 x 500 mg) PO HS PRN 05/31/24 09/28/24 muscle spasm #90 tabs metoclopramide HCl 10 mg tablet 10 mg PO TID PRN 05/31/24 09/28/24 ondansetron 8 mg disintegrating 8 mg PO BID PRN nausea and 05/31/24 09/28/24 tablet vomiting #60 tabs fremanezumab-vfrm 225 mg/1.5 mL 225 mg subcut QMONTH 06/07/24 09/28/24 subcutaneous auto-injector (Ajovy) onabotulinumtoxinA 100 unit 300 unit IM ONCE 06/07/24 09/28/24 solution for injection (Botox) lurasidone 80 mg tablet 80 mg PO DAILY 06/08/24 09/28/24 atorvastatin 80 mg tablet 80 mg PO DAILY #90 tabs 06/23/24 09/28/24 blood-glucose sensor ([employer] G6 #3 ea 06/23/24 09/28/24 Sensor device) methadone 10 mg/mL oral 77 mg PO DAILY 06/23/24 09/28/24 concentrate (Methadone Intensol) blood-glucose transmitter (Dexcom #3 ea 07/07/24 09/28/24 G6 Transmitter device) foam pillow #1 ea 07/07/24 09/28/24 metoprolol succinate 50 mg 50 mg PO DAILY recent LA #30 tabs 07/07/24 09/28/24 tablet,extended release 24 hr pregabalin 200 mg capsule 200 mg PO TID #90 caps 07/07/24 09/28/24 lorazepam 0.5 mg tablet See Rx Instructions PO DAILY PRN 07/08/24 09/28/24 dyspnea #14 tabs insulin degludec 100 unit/mL (3 30 unit subcut DAILY 07/13/24 09/28/24 mL) subcutaneous pen (Tresiba FlexTouch U-100 insulin) losartan 25 mg tablet 25 mg PO DAILY 07/14/24 09/28/24 spironolactone 25 mg tablet 25 mg PO DAILY 07/14/24 09/28/24 furosemide 40 mg tablet (Lasix) 40 mg PO DAILY #14 tabs 07/18/24 09/28/24 magnesium 250 mg tablet 250 mg PO DAILY #14 tabs 07/18/24 09/28/24 metoprolol succinate 25 mg 100 mg PO DAILY 07/18/24 09/28/24 tablet,extended release 24 hr polyethylene glycol 3350 17 17 g PO DAILY PRN 08/02/24 09/28/24 gram/dose oral powder (Miralax) constipation/gastroparesis #238 grams clonidine HCl 0.1 mg tablet 0.1 mg PO BID 09/19/24 09/28/24 Previous Rx's ?Medication ?Instructions ?Recorded acetaminophen 500 mg tablet 500 - 1,000 mg (1 - 2 x 500 mg) PO 09/24/19 Q8H PRN fever or pain #180 tab-caps alcohol swabs (Alcohol Pads) 1 pad topical QID #400 ea 10/25/22 pen needle, diabetic 32 gauge x #100 ea 06/30/23 (BD Ultra-Fine Yamini Pen Needle) blood-glucose meter #1 ea 08/28/23 lancets #400 ea 08/28/23 insulin aspart U-100 100 unit/mL 15 unit (0.15 mL) subcut AC #15 mL 01/05/24 (3 mL) subcutaneous pen (Novolog FlexPen U-100 Insulin aspart) naloxone 4 mg/actuation nasal 4 mg intranasal Q2M PRN opioid 02/13/24 spray (Narcan) overdose #2 ea 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 04/12/24 #90 tab-caps blood sugar diagnostic (Blood #400 ea 04/26/24 Glucose Test strips) magnesium oxide 400 mg (241.3 mg 400 mg PO BID #180 tabs 04/26/24 magnesium) tablet omeprazole 40 mg capsule,delayed 40 mg PO DAILY #90 caps 05/20/24 release nystatin 100,000 unit/gram topical 1 applic topical BID PRN fungal 05/25/24 powder skin infection #30 grams albuterol sulfate 90 mcg/actuation 1 - 2 puff inhalation Q4-6H PRN ##1 05/31/24 aerosol inhaler fluticasone 250 mcg-salmeterol 50 1 inh inhalation BID #60 ea 05/31/24 mcg/dose blistr powdr for inhalation (Advair Diskus) gabapentin 300 mg capsule 300 mg PO HS PRN back pain #60 caps 05/31/24 glucagon 1 mg/0.2 mL subcutaneous 1 mg (0.2 mL) subcut ONCE #0.4 mL 05/31/24 auto-injector (GvKnoda HypoPen 2-Pack) ipratropium 0.5 mg-albuterol 3 mg 3 ml inhalation QID PRN wheezing 05/31/24 (2.5 mg base)/3 mL nebulization #180 mL soln methocarbamol 500 mg tablet 1,000 mg (2 x 500 mg) PO HS PRN 05/31/24 muscle spasm #90 tabs ondansetron 8 mg disintegrating 8 mg PO BID PRN nausea and 05/31/24 tablet vomiting #60 tabs atorvastatin 80 mg tablet 80 mg PO DAILY #90 tabs 06/23/24 blood-glucose sensor (Dexcom G6 #3 ea 06/23/24 Sensor device) blood-glucose transmitter (Dexcom #3 ea 07/07/24 G6 Transmitter device) foam pillow #1 ea 07/07/24 metoprolol succinate 50 mg 50 mg PO DAILY recent LA #30 tabs 07/07/24 tablet,extended release 24 hr pregabalin 200 mg capsule 200 mg PO TID #90 caps 07/07/24 lorazepam 0.5 mg tablet See Rx Instructions PO DAILY PRN 07/08/24 dyspnea #14 tabs furosemide 40 mg tablet (Lasix) 40 mg PO DAILY #14 tabs 07/18/24 magnesium 250 mg tablet 250 mg PO DAILY #14 tabs 07/18/24 polyethylene glycol 3350 17 17 g PO DAILY PRN 08/02/24 gram/dose oral powder (Miralax) constipation/gastroparesis #238 grams Allergies Allergy/AdvReac Type Severity Reaction Status Date / Time Penicillins Allergy Severe lip and Verified 09/28/24 12:47 facial swelling lamotrigine (From Lamictal) Allergy Unknown Skin Rash Verified 09/28/24 12:47 clindamycin AdvReac Severe Nausea & Verified 09/28/24 12:47 vomiting aspirin AdvReac Intermediate nausea/pain Verified 09/28/24 12:47 General Stated Complaint: Headache CARLOS: 3 Review of Systems Narrative: see HPI Exam Narrative Exam Narrative: General: Alert, non-toxic Head: Normocephalic, atraumatic Neck: Trachea midline, ?Neck supple. ENT: ?MMM.? No oropharygeal lesions or exudate. Cardiac: ?No cyanosis Resp: No respiratory distress. Speaking in full sentences. . Extremities: ?No deformities.? No peripheral edema. Neuro: ? GCS 15.? PERRL.? EOMI.? Fluent speech, no dysarthria. Motor- 5/5 strength symmetric bilateral upper and lower extremities Sensation- ?Intact to light touch and symmetric multiple dermatomes including upper and lower extremities Coordination- No dysmetria on finger to nose Gait/station: ?Normal stance.? No truncal ataxia. Steady gait with equal normal steps CRANIAL NERVES: II: Pupils equal and reactive, III, IV, : EOM intact, no gaze preference or deviation, no nystagmus. V: normal sensation in V1, V2, and V3 segments bilaterally VII: no asymmetry, no nasolabial fold flattening VIII: normal hearing to speech IX, X: normal palatal elevation, no uvular deviation XI: 5/5 head turn and 5/5 shoulder shrug bilaterally XII: midline tongue protrusion Course Vital Signs Vital signs: Vital Signs Temperature 36.4 C L 09/28/24 12:44 Pulse 86 09/28/24 12:44 Respiratory Rate 25 H 09/28/24 12:44 Blood Pressure 149/85 H 09/28/24 12:44 Pulse Oximetry 94 09/28/24 12:44 Temperature 36.4 C L 09/28/24 12:44 Pulse 86 09/28/24 12:44 Respiratory Rate 25 H 09/28/24 12:44 Blood Pressure 149/85 H 09/28/24 12:44 Pulse Oximetry 94 09/28/24 12:44 Pain Level 10 09/28/24 13:13 Lab/Test Results Lab/Test Results: Laboratory Tests Range/Units 09/28/24 12:52 COVID-19 Source Nasopharynx SARS-CoV-2 (PCR) (Negative) Negative Influenza Type A (PCR) (Negative) Negative Influenza Type B (PCR) (Negative) Negative RSV (PCR) (Negative) Negative Medical Decision Making 43yo F with hx of migraines presenting with headache x 36 hours consistent with her typical migraine, not responsive to home treatments. Slightly tachypneic in triage, vital signs otherwise reassuring. Normal RR with no increased WOB on my exam. Normal neurologic exam. She confirms that aside from duration, current headache is in all ways typical of her usual migraines. Not concerning for meningitis, encephalitis, SAH, intracranial mass, giant cell arteritis, or other life threatening pathology; would not get labs or CT imaging at this time. Will treat with IVFB, tylenol, toradol, compazine, and Benadryl. Subsequently nursing reports pt eloped from department; I was not able to reassess. Per nursing, she had states her headache had much improved prior to l eaving. Discharge instructions mailed to patient. Quality:SDOH Health Related Social Needs: No Data to Display PFSH All Active Problems (Updated 09/28/24 @ 16:53 by Georgina Aguilar MD) Migraine (Chronic) Chest pain of uncertain etiology (Acute) Cat scratch fever (Acute) Orthopnea (Acute) Edema of both lower legs (Acute) l>r .. chf? INACTIVITY? Myocardial infarction acute (Acute) Fatty infiltration of liver (Acute) Hx cirrhosis? 2' pancreatitis (05/2024)? Elevated troponin level not due myocardial infarction (Acute ~05/2024) ?type 2 ACS Acute postoperative abdominal pain (Acute) Diabetic ketoacidosis (Acute ~05/2024) Corneal abrasion (Acute) Obstructive sleep apnea of adult (Acute) [facility] 12/23/23 Muscle spasm of left lower extremity (Acute) Muscle spasm of back (Acute) Diabetic cataract of right eye (Acute) Ulcer of right foot limited to breakdown of skin (Acute 04/16/23) [facility] Podiatry Ulcer of left foot, limited to breakdown of skin (Acute 04/16/23) [facility] Podiatry Iron deficiency (Acute) 03/2023 iron studies indicating deficiency (NOT anemic) Migraine (Chronic) [facility] Neuro Chronic constipation (Chronic) [facility] GI Type 2 diabetes mellitus, with long-term current use of insulin (Chronic) With neuropathy & retinopathy (left, mild) Obesity (Chronic) Cirrhosis of liver (Chronic) [facility] GI Diabetic neuropathy (Acute) Asthma (Chronic) Tobacco use disorder (Chronic) Started smoking age 9 Poorly controlled type 2 diabetes mellitus (Chronic 03/23/18) Polypharmacy (Chronic 12/14/15) Mild nonproliferative diabetic retinopathy associated with type 2 diabetes mellitus (Chronic 01/22/16) Mental health disorder (Chronic) Pt reports being diagnosed with bipolar disorder, disassociative disorder, anxiety, & multiple personality disorder Hypomagnesemia (Chronic 09/30/16) Hyperlipidemia (Chronic 09/30/16) 10-year ASCVD risk = unable to calculate due to not being age 40+ however dx T2DM, so Rx for statin 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 Jimenez [facility] 2023: [facility] GI Depressive disorder (Chronic 10/31/14) ADMISSION SUICIDAL THOUGHTS 06/13/14 OD ATTEMPTS IN PAST Chronic nausea (Chronic) EGD 04/16/16 Dr. 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) Medical History DKA (diabetic ketoacidosis) Acute gallstone pancreatitis Acute pancreatitis Opioid use disorder MAT with methadone Chronic fatigue (07/19/15) Osteomyelitis Dyspareunia in female (07/09/17) Punctate keratitis of both eyes Ulcer of foot due to secondary diabetes Umbilical hernia (03/11/18) 03/17/2018: [facility] GI Premature surgical menopause JAD/BSO in late 20s, no HRT Hepatitis C 02/14/2016 labwork: undetectable RNA level Surgical History S/P cholecystectomy (06/12/24) Dr Reyes Status post total hysterectomy and bilateral salpingo-oophorectomy (~2006) noncancerous reasons Status post left foot surgery (10/2022) Left fourth metatarsal head excision for chronic ulcer, osteomyelitis ([facility]/Tamia Vidales, DPM) Status post section (~2003) EGD (04/16/16) Dr. Ferrer Family History Mother , 46yo due to kidney & liver failure due to alcohol Substance use disorder Alcohol use disorder Father , 62yo from ALS Substance use disorder Alcohol use disorder ALS (amyotrophic lateral sclerosis) Grandmother Colon cancer Paternal Paternal Uncle Cardiac arrest Substance use disorder Alcohol and Pain Medication Abuse Social History Smoking/Tobacco Use Status: Current every day Tobacco Type: cigarettes Smoking packs per day: 1 Smoking cigarettes per day: 20.0 Tobacco: How many years used: 33 Quit status: considering quitting Smoking risk assessment performed?: Yes Alcohol Intake: never Drug use: Occasionally Substance use type: former substance user and marijuana Details: Pt. 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 Pets and animals: Yes (1 dog, 4 cats) Pets and animals: cat(s) and dog(s) Sexually active: Yes Do you think of yourself as: straight/heterosexual Current gender identity: female Other: 09/2022: pt reports she is engaged What is your relationship status?: How often do you talk on the phone with friends or family?: three or more times per week How often do you get together with friends or relatives?: once per week How often do you attend scientologist or amish services?: decline to answer Do you belong to any clubs or organized social groups?: no Panel score (0-1 are the most socially isolated patients): 2 What type of physical activity do you participate in: none Duration: decline to answer Frequency: decline to answer Seatbelt use: always Helmet use: No (No reason to wear one) Drive intox or ride w/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
[2024-09-28] MEDS: Prochlorperazine 10 MG/2 ML VIAL IVP (16:00)
[2024-09-28] MEDS: diphenhydrAMINE 50 MG/ML VIAL IVP (16:00)
[2024-09-28] MEDS: ACETAMINOPHEN 1,000 MG/100 ML BTL 400 MG (16:01)
[2024-09-28] MEDS: Ketorolac 15 MG/ML VIAL IVP (16:01)
[2024-09-28] MEDS: Normal Saline 1,000 ML 1000 ML IV (16:01)
--- NOTE | 2024-09-29 14:23 | NUR.NOTE ---
Nursing Note: Accessed chart for SQSS investigation.
== END 2024-09-28 16:49 | disposition left against medical advice (07) ==
PROVIDERS: Emergency Medicine; Emergency Provider Student in an Organized Health Care Education/Training Program
DX: G43.909 Migraine, unspecified, not intractable, without status migrainosus (principal); E11.40 Type 2 diabetes mellitus with diabetic neuropathy, unspecified; E11.319 Type 2 diabetes mellitus with unspecified diabetic retinopathy without macular edema; E78.5 Hyperlipidemia, unspecified; I25.2 Old myocardial infarction; Z79.4 Long term (current) use of insulin; F17.210 Nicotine dependence, cigarettes, uncomplicated; Z53.29 Procedure and treatment not carried out because of patient's decision for other reasons
CPT/HCPCS: 36415; 87637; 96361; 96374; 96375; 99284; J0131; J0780; J1200; J1885

== ENCOUNTER 2024-10-03 10:55 | Emergency (ER) | payer MEDICARE, SELFPAY ==
[2024-10-03 11:00] VITALS: BP 118/77; PULSE 103; RESP 18; TEMP 36.7; O2SAT 91
--- NOTE | 2024-10-03 11:15 | DI.CT_ITS ---
Exam(s) CT ORBITS W EXAM: CT ORBITS W CLINICAL HISTORY: right eye pain and periorbital swelling, ?abscess. TECHNIQUE: Imaging Protocol: Axial computed tomography images with coronal and sagittal reformatted images were created and reviewed CONTRAST MATERIAL: Intravenous: Omnipaque 350 Contrast volume:100mL COMPARISON: CT CT HEAD WO from 06/14/2024 FINDINGS: There is mild patient motion artifact. Globes: The anterior and posterior chambers are intact. Optic Nerves: Normal. Extraocular muscles: Normal. Retrobulbar fat: Normal. Orbital pittman: No definite fracture is noted. Superior ophthalmic veins: Normal. Sinuses: The sinuses are clear. Soft Tissues: Unremarkable. No edema is seen. No skin thickening is present. No focal fluid collec tion is seen to suggest an abscess. IMPRESSION: Unremarkable examination. No evidence of an abscess. RADIATION DOSE DELIVERED: 197.9mGy.cm Total DLP 197.9mGy.cm Total DLP DATA REPOSITORY: All CT scans at this facility are submitted to the National Radiology Data Registry (NRDR) Dose Index Registry (DIR) with the [employer] (ACR). RADIATION OPTIMIZATION: All CT scans at this facility use at least one of these dose optimization te chniques: automated exposure control; mA and/or kV adjustment per patient size (includes targeted exa ms where dose is matched to clinical indication); or iterative reconstruction.
--- NOTE | 2024-10-03 11:19 | ED.GENADUL_ITS ---
Discharge Plan Disposition Patient Disposition: Home Condition: Stable Discharge Details Clinical Impression: Ocular pain, right eye Primary Care Provider: Unknown,Unknown ED Provider: Hussain Espinal Home Meds and New Rx's Prescriptions: Continued albuterol sulfate 90 mcg/actuation HFA aerosol inhaler 1 - 2 puff Inhalation Q4-6H PRN Qty: 1 1RF Rx Instructions: DISPENSE ALBUTEROL INHALER BRAND COVERED BY INSURANCE metoclopramide HCl 10 mg tablet 10 mg PO TID PRN Rx Instructions: administer 30 minutes before meals ondansetron 8 mg tablet,disintegrating 8 mg PO BID PRN (Reason: nausea and vomiting) Qty: 60 11RF gabapentin 300 mg capsule 300 mg PO HS PRN (Reason: back pain) Qty: 60 0RF Gvoke HypoPen 2-Pack 1 mg/0.2 mL auto-injector 1 mg subcut ONCE Qty: 0.4 1RF Rx Instructions: HYPOGLYCEMIA; as a single dose; may repeat once after 15 minutes if no response methocarbamol 500 mg tablet 1,000 mg PO HS PRN (Reason: muscle spasm) Qty: 90 0RF Rx Instructions: Use lowest effective dose for shortest duration for muscle spasm ipratropium-albuterol 0.5 mg-3 mg(2.5 mg base)/3 mL solution for nebulization 3 ml inhalation QID PRN (Reason: wheezing) Qty: 180 1RF Rx Instructions: During asthma exacerbation, may use preventatively TID, titrating down to QID PRN as wheeze & SOB improve. fluticasone propion-salmeterol [Advair Diskus] 250-50 mcg/dose blister with device 1 inh inhalation BID Qty: 60 1RF Rx Instructions: Please use this during asthma exacerbations, wean off as shortness of breath & wheeze improve. atorvastatin 80 mg tablet 80 mg PO DAILY Qty: 90 3RF (DME) Dexcom G6 Sensor Device See Rx Instructions .ROUTE .COMPLEX Qty: 3 6RF Dose Instruction: USE DIRECTED Rx Instructions: USE DIRECTED methadone [Methadone Intensol] 10 mg/mL concentrate 77 mg PO DAILY alcohol swabs [Alcohol Pads] Pads, Medicated 1 pad Topical QID Qty: 400 3RF naloxone [Narcan] 4 mg/actuation spray,non-aerosol 4 mg intranasal Q2M PRN (Reason: opioid overdose) Qty: 2 0RF Rx Instructions: spray 1 dose into ONE nostril; alternate nostrils w each dose until help arr danielle (DME) Dexcom G6 Transmitter Device See Rx Instructions .Route Qty: 3 3RF Rx Instructions: As directed pregabalin 200 mg capsule 200 mg PO TID Qty: 90 3RF metoprolol succinate 50 mg tablet extended release 24 hr 50 mg PO DAILY Qty: 30 1RF Rx Instructions: Trial lower dose (50+25=75mg) due to fatigue/SOB (on 100mg) (DME) foam pillow triangular See Rx Instructions .Route .MEDSUPPLY Qty: 1 0RF Rx Instructions: Trial sleeping & resting (legs need elevation) @ 30-40' angle to alleviate SOB/Panic acetaminophen 500 mg tablet 500 - 1,000 mg PO Q8H MDD 3000 mg PRN (Reason: fever or pain) Qty: 180 0RF Rx Instructions: 1 month supply (DME) pen needle, diabetic [BD Ultra-Fine Yamini Pen Needle] 32 gauge x 5/32 needle See Rx Instructions .ROUTE .COMPLEX Qty: 100 0RF Dose Instruction: USE TO ADMINISTER INSULIN ONCE DAILY Rx Instructions: USE TO ADMINISTER INSULIN ONCE DAILY (DME) blood-glucose meter Misc See Rx Instructions .Route Qty: 1 0RF Rx Instructions: One Touch meter ([facility]) lancets Misc See Rx Instructions .ROUTE .MEDSUPPLY Qty: 400 3RF Rx Instructions: As directed to check blood glucose four times daily. On insulin. Dispense one touch ultra insulin aspart U-100 [Novolog FlexPen U-100 Insulin] 100 unit/mL (3 mL) insulin pen 15 unit subcut AC Qty: 15 3RF Rx Instructions: 10-15 units sliding scale before meals valacyclovir 500 mg tablet 500 mg PO DAILY Qty: 90 3RF (DME) Blood Glucose Test Strip See Rx Instructions .MEDSUPPLY Qty: 400 3RF Rx Instructions: As directed to check blood glucose four times daily. On insulin. Dispense one touch ultra magnesium oxide 400 mg (241.3 mg magnesium) tablet 400 mg PO BID Qty: 180 0RF omeprazole 40 mg capsule,delayed release(DR/EC) 40 mg PO DAILY Qty: 90 3RF nystatin 100,000 unit/gram powder 1 applic Topical BID PRN (Reason: fungal skin infection) Qty: 30 3RF Rx Instructions: Apply powder to affected area under R breast twice daily lorazepam 0.5 mg tablet See Rx Instructions PO DAILY PRN (Reason: dyspnea) Qty: 14 0RF Rx Instructions: Short term increase to BID PRN panic or shortness of breath orally daily PRN; (FYI to Prescriber @ [facility]) insulin degludec [Tresiba FlexTouch U-100] 100 unit/mL (3 mL) insulin pen 30 unit subcut DAILY Patient Comments: takes more than rx'd due to blood sugars being high Rx Instructions: 07/13/2024 PER [facility] decrease to 30 units losartan 25 mg tablet 25 mg PO DAILY spironolactone 25 mg tablet 25 mg PO DAILY polyethylene glycol 3350 [Miralax] 17 gram/dose powder 17 g PO DAILY PRN (Reason: constipation/gastroparesis) Qty: 238 0RF clonidine HCl 0.2 mg tablet 0.2 mg PO HS Patient Comments: TAKE 1 TABLET BY MOUTH EVERY NIGHT AT BEDTIME mirtazapine 15 mg tablet 15 mg PO HS Ajovy Autoinjector 225 mg/1.5 mL auto-injector 225 mg subcut QMONTH Botox 100 unit recon soln 300 unit IM ONCE Rx Instructions: divided among affected muscles clonidine HCl 0.1 mg tablet 0.1 mg PO BID Patient Comments: TAKE 1 TABLET BY MOUTH DURING THE DAY NEEDED AND 1 TABLET AT BEDTIME FOR ANXIETY lurasidone 80 mg tablet 80 mg PO DAILY Patient Comments: TAKE ONE TABLET BY MOUTH EVERY DAY WITH AT LEAST 350 CALORIES metoprolol succinate 25 mg tablet extended release 24 hr 100 mg PO DAILY Patient Comments: ran out 2 days ago furosemide [Lasix] 40 mg tablet 40 mg PO DAILY Qty: 14 0RF magnesium 250 mg tablet 250 mg PO DAILY Qty: 14 0RF Discharge Instructions Additional Instructions: Use the antibiotic ointment 3 times a day for 5 days or until the tube is gone. If not improving in a couple days follow-up with [facility] eye care If you feel more ill, have high fevers or severe worsening pain return to the emergency department for reevaluation HPI General Mode of arrival: ambulatory . Date/Time Provider Initiated Documentation: 10/03/24 10:57 . Limitations to Documentation: no limitations . Information obtained by: patient . History of Present Illness 43 year old F presents to the emergency department with the chief complaint of Right eye pain, described as moderate, Quality is described as aching, Patient started experiencing this day(s) (1) and it has been constant. No relieving factors improve symptom(s), No exacerbating factors reported . Patient notes denies chest pain, fever/chills and shortness of breath. Patient did receive the following treatments prior to arrival, none Related Data Home Medications ?Medication ?Instructions ?Recorded ?Confirmed acetaminophen 500 mg tablet 500 - 1,000 mg (1 - 2 x 500 mg) PO 09/24/19 10/03/24 Q8H PRN fever or pain #180 tab-caps alcohol swabs (Alcohol Pads) 1 pad topical QID #400 ea 10/25/22 10/03/24 pen needle, diabetic 32 gauge x #100 ea 06/30/23 10/03/24 (BD Ultra-Fine Yamini Pen Needle) blood-glucose meter #1 ea 08/28/23 10/03/24 lancets #400 ea 08/28/23 10/03/24 clonidine HCl 0.2 mg tablet 0.2 mg PO HS 11/21/23 10/03/24 insulin aspart U-100 100 unit/mL 15 unit (0.15 mL) subcut AC #15 mL 01/05/24 10/03/24 (3 mL) subcutaneous pen (Novolog FlexPen U-100 Insulin aspart) naloxone 4 mg/actuation nasal 4 mg intranasal Q2M PRN opioid 02/13/24 10/03/24 spray (Narcan) overdose #2 ea 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 04/12/24 10/03/24 #90 tab-caps blood sugar diagnostic (Blood #400 ea 04/26/24 10/03/24 Glucose Test strips) magnesium oxide 400 mg (241.3 mg 400 mg PO BID #180 tabs 04/26/24 10/03/24 magnesium) tablet mirtazapine 15 mg tablet 15 mg PO HS 05/03/24 10/03/24 omeprazole 40 mg capsule,delayed 40 mg PO DAILY #90 caps 05/20/24 10/03/24 release nystatin 100,000 unit/gram topical 1 applic topical BID PRN fungal 05/25/24 10/03/24 powder skin infection #30 grams albuterol sulfate 90 mcg/actuation 1 - 2 puff inhalation Q4-6H PRN ##1 05/31/24 10/03/24 aerosol inhaler fluticasone 250 mcg-salmeterol 50 1 inh inhalation BID #60 ea 05/31/24 10/03/24 mcg/dose blistr powdr for inhalation (Advair Diskus) gabapentin 300 mg capsule 300 mg PO HS PRN back pain #60 caps 05/31/24 10/03/24 glucagon 1 mg/0.2 mL subcutaneous 1 mg (0.2 mL) subcut ONCE #0.4 mL 05/31/24 10/03/24 auto-injector (Gvoke HypoPen 2-Pack) ipratropium 0.5 mg-albuterol 3 mg 3 ml inhalation QID PRN wheezing 05/31/24 10/03/24 (2.5 mg base)/3 mL nebulization #180 mL soln methocarbamol 500 mg tablet 1,000 mg (2 x 500 mg) PO HS PRN 05/31/24 10/03/24 muscle spasm #90 tabs metoclopramide HCl 10 mg tablet 10 mg PO TID PRN 05/31/24 10/03/24 ondansetron 8 mg disintegrating 8 mg PO BID PRN nausea and 05/31/24 10/03/24 tablet vomiting #60 tabs fremanezumab-vfrm 225 mg/1.5 mL 225 mg subcut QMONTH 06/07/24 10/03/24 subcutaneous auto-injector (Ajovy) onabotulinumtoxinA 100 unit 300 unit IM ONCE 06/07/24 10/03/24 solution for injection (Botox) lurasidone 80 mg tablet 80 mg PO DAILY 06/08/24 10/03/24 atorvastatin 80 mg tablet 80 mg PO DAILY #90 tabs 06/23/24 10/03/24 blood-glucose sensor (Dexcom G6 #3 ea 06/23/24 10/03/24 Sensor device) methadone 10 mg/mL oral 77 mg PO DAILY 06/23/24 10/03/24 concentrate (Methadone Intensol) blood-glucose transmitter (Dexcom #3 ea 07/07/24 10/03/24 G6 Transmitter device) foam pillow #1 ea 07/07/24 10/03/24 metoprolol succinate 50 mg 50 mg PO DAILY recent TN #30 tabs 07/07/24 10/03/24 tablet,extended release 24 hr pregabalin 200 mg capsule 200 mg PO TID #90 caps 07/07/24 10/03/24 lorazepam 0.5 mg tablet See Rx Instructions PO DAILY PRN 07/08/24 10/03/24 dyspnea #14 tabs insulin degludec 100 unit/mL (3 30 unit subcut DAILY 07/13/24 10/03/24 mL) subcutaneous pen (Tresiba FlexTouch U-100 insulin) losartan 25 mg tablet 25 mg PO DAILY 07/14/24 10/03/24 spironolactone 25 mg tablet 25 mg PO DAILY 07/14/24 10/03/24 furosemide 40 mg tablet (Lasix) 40 mg PO DAILY #14 tabs 07/18/24 10/03/24 magnesium 250 mg tablet 250 mg PO DAILY #14 tabs 07/18/24 10/03/24 metoprolol succinate 25 mg 100 mg PO DAILY 07/18/24 10/03/24 tablet,extended release 24 hr polyethylene glycol 3350 17 17 g PO DAILY PRN 08/02/24 10/03/24 gram/dose oral powder (Miralax) constipation/gastroparesis #238 grams clonidine HCl 0.1 mg tablet 0.1 mg PO BID 09/19/24 10/03/24 Previous Rx's ?Medication ?Instructions ?Recorded acetaminophen 500 mg tablet 500 - 1,000 mg (1 - 2 x 500 mg) PO 09/24/19 Q8H PRN fever or pain #180 tab-caps alcohol swabs (Alcohol Pads) 1 pad topical QID #400 ea 10/25/22 pen needle, diabetic 32 gauge x #100 ea 06/30/2332 (BD Ultra-Fine Yamini Pen Needle) blood-glucose meter #1 ea 08/28/23 lancets #400 ea 08/28/23 insulin aspart U-100 100 unit/mL 15 unit (0.15 mL) subcut AC #15 mL 01/05/24 (3 mL) subcutaneous pen (Novolog FlexPen U-100 Insulin aspart) naloxone 4 mg/actuation nasal 4 mg intranasal Q2M PRN opioid 02/13/24 spray (Narcan) overdose #2 ea 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 04/12/24 #90 tab-caps blood sugar diagnostic (Blood #400 ea 04/26/24 Glucose Test strips) magnesium oxide 400 mg (241.3 mg 400 mg PO BID #180 tabs 04/26/24 magnesium) tablet omeprazole 40 mg capsule,delayed 40 mg PO DAILY #90 caps 05/20/24 release nystatin 100,000 unit/gram topical 1 applic topical BID PRN fungal 05/25/24 powder skin infection #30 grams albuterol sulfate 90 mcg/actuation 1 - 2 puff inhalation Q4-6H PRN ##1 05/31/24 aerosol inhaler fluticasone 250 mcg-salmeterol 50 1 inh inhalation BID #60 ea 05/31/24 mcg/dose blistr powdr for inhalation (Advair Diskus) gabapentin 300 mg capsule 300 mg PO HS PRN back pain #60 caps 05/31/24 glucagon 1 mg/0.2 mL subcutaneous 1 mg (0.2 mL) subcut ONCE #0.4 mL 05/31/24 auto-injector (GvIntertwine HypoPen 2-Pack) ipratropium 0.5 mg-albuterol 3 mg 3 ml inhalation QID PRN wheezing 05/31/24 (2.5 mg base)/3 mL nebulization #180 mL soln methocarbamol 500 mg tablet 1,000 mg (2 x 500 mg) PO HS PRN 05/31/24 muscle spasm #90 tabs ondansetron 8 mg disintegrating 8 mg PO BID PRN nausea and 05/31/24 tablet vomiting #60 tabs atorvastatin 80 mg tablet 80 mg PO DAILY #90 tabs 06/23/24 blood-glucose sensor (Dexcom G6 #3 ea 06/23/24 Sensor device) blood-glucose transmitter (Dexcom #3 ea 07/07/24 G6 Transmitter device) foam pillow #1 ea 07/07/24 metoprolol succinate 50 mg 50 mg PO DAILY recent TN #30 tabs 07/07/24 tablet,extended release 24 hr pregabalin 200 mg capsule 200 mg PO TID #90 caps 07/07/24 lorazepam 0.5 mg tablet See Rx Instructions PO DAILY PRN 07/08/24 dyspnea #14 tabs furosemide 40 mg tablet (Lasix) 40 mg PO DAILY #14 tabs 07/18/24 magnesium 250 mg tablet 250 mg PO DAILY #14 tabs 07/18/24 polyethylene glycol 3350 17 17 g PO DAILY PRN 08/02/24 gram/dose oral powder (Miralax) constipation/gastroparesis #238 grams Allergies Allergy/AdvReac Type Severity Reaction Status Date / Time Penicillins Allergy Severe lip and Verified 10/03/24 11:02 facial swelling lamotrigine (From Lamictal) Allergy Unknown Skin Rash Verified 10/03/24 11:02 clindamycin AdvReac Severe Nausea & Verified 10/03/24 11:02 vomiting aspirin AdvReac Intermediate nausea/pain Verified 10/03/24 11:02 General Stated Complaint: EyeProblem CARLOS: 4 Review of Systems All systems reviewed & are unremarkable except as noted in HPI and below Constitutional Constitutional: Denies chills, Denies fever(s) and Denies weakness Eyes Eyes: Reports eye pain Cardiovascular Cardiovascular: Denies chest pain and Denies dyspnea Respiratory Respiratory: Denies cough and Denies dyspnea Gastrointestinal Gastrointestinal: Denies abdominal pain, Denies nausea and Denies vomiting Musculoskeletal Musculoskeletal: Denies joint swelling Neurologic Neurologic: Denies weakness Exam Const General: no acute distress Orientation: alert [facility] Head: normal to inspection Ears: external ears normal General nose exam: external nose normal Mouth: moist mucous membranes Eyes Conjunctivae: conjunctivae normal Sclera: sclerae normal Neck Neck: normal visual inspection Resp Effort & Inspection: normal respiratory effort and able to speak in complete sentences Cardio Rate: regular rate Skin General skin exam: no rashes or lesions noted Neuro General: patient alert and patient oriented x3 Extrem General: normal to inspection Psych Mental Status: mental status grossly normal Course Vital Signs Vital signs: Vital Signs Temperature 36.7 C 10/03/24 11:00 Pulse 103 H 10/03/24 11:00 Respiratory Rate 18 10/03/24 11:00 Blood Pressure 118/77 10/03/24 11:00 Pulse Oximetry 91 L 10/03/24 11:00 Temperature 36.7 C 10/03/24 11:00 Pulse 103 H 10/03/24 11:00 Respiratory Rate 18 10/03/24 11:00 Blood Pressure 118/77 10/03/24 11:00 Pulse Oximetry 91 L 10/03/24 11:00 Oxygen Delivery Method Room Air 10/03/24 11:00 Oxygen Flow Rate 0 10/03/24 11:00 Pain Level 10 10/03/24 11:00 Medical Decision Making 43-year-old female with history of migraines was seen for 1 a few days ago and states she still has frontal headache similar to prior migraines comes in with 1 day of right eye pain on the surface of her eyes she feels. She denies any known trauma to the eye. She is no discharge. She says she has decreased vision in her eye. She does have very mild right periorbital swelling without erythema. Her conjunctiva are normal without erythema. She localizes the pain to the lower part of her eye. There is no visible foreign body even under the eyelids. She has full range of motion of her eyes, put in place tetracaine in the eye she had relief of her pain. I do see a small corneal abrasion in the area where she has pain, approximately 2mm and at the 6 oclock position on her conjunctiva . Intraocular pressure 17 in the right eye and 16 in the left eye. my exam I checked her vision she is 20/40 in the right eye and 20/30 in the left eye. Given the mild periorbital swelling I am concerned for potentially orbital cellulitis though her pain seems on the surface of the eye. Will check CBC CMP and CT orbits for further evaluation. Given the intraocular pressure being normal I doubt glaucoma. Her pupils are both constricted but she is on methadone Patient is stable, labs show no significant acute findings as chronic leukocytosis at her baseline. CT shows no abscess. I suspect her swelling is from rubbing her eyes with physician management frequently which could have caused her corneal abrasion. No erythema or warmth so I do not feel antibiotics orally are indicated. I will provide topical erythromycin for corneal abrasion. She will follow-up with [facility] eye care if not improving and return precautions given Differential Diagnosis Differential Diagnosis: Corneal abrasion, preseptal cellulitis, orbital cellulitis Quality:[facility] Health Related Social Needs: No Data to Display PFSH All Active Problems (Updated 10/03/24 @ 14:18 by Hussain Espinal MD) Ocular pain, right eye (Acute) Migraine (Chronic) Chest pain of uncertain etiology (Acute) Cat scratch fever (Acute) Orthopnea (Acute) Edema of both lower legs (Acute) l>r .. chf? INACTIVITY? Myocardial infarction acute (Acute) Fatty infiltration of liver (Acute) Hx cirrhosis? 2' pancreatitis (05/2024)? Elevated troponin level not due myocardial infarction (Acute ~05/2024) ?type 2 ACS Acute postoperative abdominal pain (Acute) Diabetic ketoacidosis (Acute ~05/2024) Corneal abrasion (Acute) Obstructive sleep apnea of adult (Acute) [facility] 12/23/23 Muscle spasm of left lower extremity (Acute) Muscle spasm of back (Acute) Diabetic cataract of right eye (Acute) Ulcer of right foot limited to breakdown of skin (Acute 04/16/23) [facility] Podiatry Ulcer of left foot, limited to breakdown of skin (Acute 04/16/23) [facility] Podiatry Iron deficiency (Acute) 03/2023 iron studies indicating deficiency (NOT anemic) Migraine (Chronic) [facility] Neuro Chronic constipation (Chronic) [facility] GI Type 2 diabetes mellitus, with long-term current use of insulin (Chronic) With neuropathy & retinopathy (left, mild) Obesity (Chronic) Cirrhosis of liver (Chronic) [facility] GI Diabetic neuropathy (Acute) Asthma (Chronic) Tobacco use disorder (Chronic) Started smoking age 9 Poorly controlled type 2 diabetes mellitus (Chronic 03/23/18) Polypharmacy (Chronic 12/14/15) Mild nonproliferative diabetic retinopathy associated with type 2 diabetes mellitus (Chronic 01/22/16) Mental health disorder (Chronic) Pt reports being diagnosed with bipolar disorder, disassociative disorder, anxiety, & multiple personality disorder Hypomagnesemia (Chronic 09/30/16) Hyperlipidemia (Chronic 09/30/16) 10-year ASCVD risk = unable to calculate due to not being age 40+ however dx T2DM, so Rx for statin 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 [facility] 2023: [facility] GI Depressive disorder (Chronic 10/31/14) ADMISSION SUICIDAL THOUGHTS 06/13/14 OD ATTEMPTS IN PAST Chronic nausea (Chronic) EGD 04/16/16 Dr. 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) Medical History DKA (diabetic ketoacidosis) Acute gallstone pancreatitis Acute pancreatitis Opioid use disorder MAT with methadone Chronic fatigue (07/19/15) Osteomyelitis Dyspareunia in female (07/09/17) Punctate keratitis of both eyes Ulcer of foot due to secondary diabetes Umbilical hernia (03/11/18) 03/17/2018: [facility] Premature surgical menopause JAD/BSO in late 20s, no HRT Hepatitis C 02/14/2016 labwork: undetectable RNA level Surgical History S/P cholecystectomy (06/12/24) Dr Reyes Status post total hysterectomy and bilateral salpingo-oophorectomy (~2006) noncancerous reasons Status post left foot surgery (10/2022) Left fourth metatarsal head excision for chronic ulcer, osteomyelitis ([facility]/Tamia Vidales, DPM) Status post section (~2003) EGD (04/16/16) Dr. Ferrer Family History Mother , 46yo due to kidney & liver failure due to alcohol Substance use disorder Alcohol use disorder Father , 62yo from ALS Substance use disorder Alcohol use disorder ALS (amyotrophic lateral sclerosis) Grandmother Colon cancer Paternal Paternal Uncle Cardiac arrest Substance use disorder Alcohol and Pain Medication Abuse Social History Smoking/Tobacco Use Status: Current every day Tobacco Type: cigarettes Smoking packs per day: 1 Smoking cigarettes per day: 20.0 Tobacco: How many years used: 33 Quit status: considering quitting Smoking risk assessment performed?: Yes Alcohol Intake: never Drug use: Occasionally Substance use type: former substance user and marijuana Details: Pt. 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 Pets and animals: Yes (1 dog, 4 cats) Pets and animals: cat(s) and dog(s) Sexually active: Yes Do you think of yourself as: straight/heterosexual Current gender identity: female Other: 09/2022: pt reports she is engaged What is your relationship status?: How often do you talk on the phone with friends or family?: three or more times per week How often do you get together with friends or relatives?: once per week How often do you attend advent or protestant services?: decline to answer Do you belong to any clubs or organized social groups?: no Panel score (0-1 are the most socially isolated patients): 2 What type of physical activity do you participate in: none Duration: decline to answer Frequency: decline to answer Seatbelt use: always Helmet use: No (No reason to wear one) 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
[2024-10-03] MEDS: Fluorescein STRIPS 100/BOX 1 MG OP (11:38)
[2024-10-03] MEDS: Balanced Salt Solution 15 ML BTL OP (11:39)
[2024-10-03] MEDS: Prochlorperazine 10 MG/2 ML VIAL IVP (11:40)
[2024-10-03] MEDS: Ketorolac 15 MG/ML VIAL IVP (11:40)
[2024-10-03] MEDS: Dexamethasone 10 MG/ML VIAL IVP (11:40)
[2024-10-03 11:47] VITALS: RESP 20; O2SAT 98
[2024-10-03 11:47] LABS: Abs Immature Grans 0.06 10^3/uL (0.0-0.06); Absolute Basophil Count 0.05 10^3/uL (0.0-0.2); Absolute Eosinophil Count 0.17 10^3/uL (0.0-0.7); Absolute Lymphocyte Count 3.18 10^3/uL (1.2-3.4); Absolute Monocyte Count 0.77 10^3/uL (0.1-0.8); Absolute Neutrophil Count 8.54 10^3/uL (1.2-6.7); Basophils % 0.4 %; Eosinophils % 1.3 %; HCT 40.7 % (36.0-46.0); HGB 12.5 g/dL (11.2-15.7); Immature Grans % 0.5 %; Lymphocytes % 24.9 %; MCH 23.2 pg (27.0-33.0); MCHC 30.7 % (32.0-36.0); MCV 76 fL (80-95); MPV 11.5 fL (8.0-11.0); Neutrophils % 66.9 %; Platelet Count 280 10^3/uL (130-400); RBC 5.39 10^6/uL (3.93-5.22); RDW 17.2 % (11.7-14.6); WBC 12.76 10^3/uL (4.4-10.8)
[2024-10-03 12:02] LABS: ALT 22 U/L (14-59); AST 20 U/L (15-37); Albumin 3.2 g/dL (3.4-5.0); Alkaline Phosphatase 175 U/L (46-116); Anion Gap 6.5 mmol/L (3-11); BUN 16 mg/dL (7-18); Bilirubin, Total 0.23 mg/dL (0.2-1.0); CO2 29.5 mmol/L (21.0-32.0); CREATININE 1.1 mg/dL (0.55-1.02); Calcium 8.5 mg/dL (8.5-10.1); Chloride 99 mmol/L (98-107); Estimated GFR 63.15 (mL/min/1.73m2); Glucose 390 mg/dL (74-106); Magnesium 1.5 mg/dL (1.8-2.4); Potassium 5.8 mmol/L (3.5-5.1); Sodium 135 mmol/L (136-145); Total Protein 7.1 g/dL (6.4-8.2)
[2024-10-03] MEDS: Omnipaque 350 MG/ML 100 ML BTL IJ (12:09)
[2024-10-03] MEDS: Normal Saline - Diluent 50 ML VIAL IJ (12:09)
[2024-10-03] MEDS: Erythromycin Ophth Oint 3.5 GM TUBE OP (14:26)
== END 2024-10-03 14:27 | disposition home or self-care (01) ==
PROVIDERS: Emergency Provider Emergency Medicine
DX: H57.11 Ocular pain, right eye (principal); H05.221 Edema of right orbit; Z86.69 Personal history of other diseases of the nervous system and sense organs; F17.210 Nicotine dependence, cigarettes, uncomplicated
CPT/HCPCS: 80053; 96374; 96375; 99285; 70481; 83735; 85025; 99284; J0780; J1100; J1885; J3490

== ENCOUNTER 2024-11-02 14:34 | Emergency (ER) | payer MEDICARE, SELFPAY ==
[2024-11-02] VITALS (26 sets, daily range): BP systolic 152–187; BP diastolic 64–100; PULSE 57–78; RESP 10–26; TEMP 36.6; O2SAT 78–99
[2024-11-02 14:59] LABS: BE (Venous) 2 mmol/L (-2-3); HCO3 (Venous) 28 mmol/L (23-28); O2 Sat (Venous) 85 %; TCO2 (Venous) 26 mmol/L (24-29); pCO2 (Venous) 51 mmHg (41-51); pH (Venous) 7.35 (7.31-7.41); pO2 (Venous) 47 mmHg
[2024-11-02 15:01] LABS: Abs Immature Grans 0.05 10^3/uL (0.0-0.06); Absolute Basophil Count 0.04 10^3/uL (0.0-0.2); Absolute Eosinophil Count 0.09 10^3/uL (0.0-0.7); Absolute Lymphocyte Count 2.11 10^3/uL (1.2-3.4); Absolute Monocyte Count 0.42 10^3/uL (0.1-0.8); Absolute Neutrophil Count 5.88 10^3/uL (1.2-6.7); Basophils % 0.5 %; HCT 38.6 % (36.0-46.0); HGB 11.4 g/dL (11.2-15.7); Immature Grans % 0.6 %; Lymphocytes % 24.6 %; MCH 22.3 pg (27.0-33.0); MCHC 29.5 % (32.0-36.0); MCV 76 fL (80-95); MPV 10.8 fL (8.0-11.0); Monocytes % 4.9 %; Neutrophils % 68.4 %; Platelet Count 229 10^3/uL (130-400); RBC 5.11 10^6/uL (3.93-5.22); RDW 17.9 % (11.7-14.6); RDW-SD 48.1 fL; WBC 8.59 10^3/uL (4.4-10.8)
[2024-11-02 15:22] LABS: ALT 25 U/L (14-59); AST 14 U/L (15-37); Albumin 3.1 g/dL (3.4-5.0); Alkaline Phosphatase 174 U/L (46-116); Anion Gap 4.4 mmol/L (3-11); BUN 23 mg/dL (7-18); Bilirubin, Total 0.22 mg/dL (0.2-1.0); CO2 29.6 mmol/L (21.0-32.0); Calcium 9.3 mg/dL (8.5-10.1); Chloride 100 mmol/L (98-107); Estimated GFR 70.36 (mL/min/1.73m2); Glucose 453 mg/dL (74-106); Magnesium 1.6 mg/dL (1.8-2.4); Potassium 5.1 mmol/L (3.5-5.1); Sodium 134 mmol/L (136-145)
--- NOTE | 2024-11-02 16:15 | DI.CT_ITS ---
Exam(s) CT HEAD WO EXAM: CT HEAD WO CLINICAL HISTORY: severe headache, needs LP. TECHNIQUE: Imaging Protocol: Axial computed tomography images with coronal and sagittal reformatted images were created and reviewed COMPARISON: CT CT ORBITS W from 10/03/2024 FINDINGS: Ventricles and Extra axial spaces: Normal in size and morphology for the patient's age. Hemorrhage: None. Cerebral parenchyma: No evidence of acute infarct or mass. Midline shift: None. Brainstem/Cerebellum: Normal. Calvarium: Normal. Visualized Paranasal sinuses:Clear. Mastoids: Clear. Soft Tissues: Unremarkable. ORBITS: Unremarkable. PITUITARY: Not enlarged. IMPRESSION: No acute intracranial process. RADIATION DOSE DELIVERED: Total DLP DATA REPOSITORY: All CT scans at this facility are submitted to the National Radiology Data Registry (NRDR) Dose Index Registry (DIR) with the [employer] (ACR). RADIATION OPTIMIZATION: All CT scans at this facility use at least one of these dose optimization te chniques: automated exposure control; mA and/or kV adjustment per patient size (includes targeted exa ms where dose is matched to clinical indication); or iterative reconstruction.
--- NOTE | 2024-11-02 16:50 | ED.GENADUL_ITS ---
Discharge Plan Disposition Patient Disposition: Against Medical Advice Condition: Stable Discharge Details Clinical Impression: Headache, HSV (herpes simplex virus) infection Primary Care Provider: Kevin Lehman ED Provider: Georgina Aguilar Home Meds and New Rx's Prescriptions: New acyclovir 200 mg capsule 200 mg PO TID Qty: 9 0RF doxycycline hyclate 100 mg tablet 100 mg PO BID Qty: 6 0RF levofloxacin 500 mg tablet 500 mg PO DAILY Qty: 3 0RF Continued albuterol sulfate 90 mcg/actuation HFA aerosol inhaler 1 - 2 puff Inhalation Q4-6H PRN Qty: 1 1RF Rx Instructions: DISPENSE ALBUTEROL INHALER BRAND COVERED BY INSURANCE metoclopramide HCl 10 mg tablet 10 mg PO TID PRN Rx Instructions: administer 30 minutes before meals ondansetron 8 mg tablet,disintegrating 8 mg PO BID PRN (Reason: nausea and vomiting) Qty: 60 11RF gabapentin 300 mg capsule 300 mg PO HS PRN (Reason: back pain) Qty: 60 0RF Gvoke HypoPen 2-Pack 1 mg/0.2 mL auto-injector 1 mg subcut ONCE Qty: 0.4 1RF Rx Instructions: HYPOGLYCEMIA; as a single dose; may repeat once after 15 minutes if no response methocarbamol 500 mg tablet 1,000 mg PO HS PRN (Reason: muscle spasm) Qty: 90 0RF Rx Instructions: Use lowest effective dose for shortest duration for muscle spasm ipratropium-albuterol 0.5 mg-3 mg(2.5 mg base)/3 mL solution for nebulization 3 ml inhalation QID PRN (Reason: wheezing) Qty: 180 1RF Rx Instructions: During asthma exacerbation, may use preventatively TID, titrating down to QID PRN as wheeze & SOB improve. fluticasone propion-salmeterol [Advair Diskus] 250-50 mcg/dose blister with device 1 inh inhalation BID Qty: 60 1RF Rx Instructions: Please use this during asthma exacerbations, wean off as shortness of breath & wheeze improve. atorvastatin 80 mg tablet 80 mg PO DAILY Qty: 90 3RF (DME) Dexcom G6 Sensor Device See Rx Instructions .ROUTE .COMPLEX Qty: 3 6RF Dose Instruction: USE DIRECTED Rx Instructions: USE DIRECTED methadone [Methadone Intensol] 10 mg/mL concentrate 77 mg PO DAILY alcohol swabs [Alcohol Pads] Pads, Medicated 1 pad Topical QID Qty: 400 3RF naloxone [Narcan] 4 mg/actuation spray,non-aerosol 4 mg intranasal Q2M PRN (Reason: opioid overdose) Qty: 2 0RF Rx Instructions: spray 1 dose into ONE nostril; alternate nostrils w each dose until help arrives (DME) [employer] G6 Transmitter Device See Rx Instructions .Route Qty: 3 3RF Rx Instructions: As directed pregabalin 200 mg capsule 200 mg PO TID Qty: 90 3RF metoprolol succinate 50 mg tablet extended release 24 hr 50 mg PO DAILY Qty: 30 1RF Rx Instructions: Trial lower dose (50+25=75mg) due to fatigue/SOB (on 100mg) (DME) foam pillow triangular See Rx Instructions .Route .MEDSUPPLY Qty: 1 0RF Rx Instructions: Trial sleeping & resting (legs need elevation) @ 30-40' angle to alleviate SOB/Panic acetaminophen 500 mg tablet 500 - 1,000 mg PO Q8H MDD 3000 mg PRN (Reason: fever or pain) Qty: 180 0RF Rx Instructions: 1 month supply (DME) pen needle, diabetic [BD Ultra-Fine Yamini Pen Needle] 32 gauge x 5/32 needle See Rx Instructions .ROUTE .COMPLEX Qty: 100 0RF Dose Instruction: USE TO ADMINISTER INSULIN ONCE DAILY Rx Instructions: USE TO ADMINISTER INSULIN ONCE DAILY (DME) blood-glucose meter Misc See Rx Instructions .Route Qty: 1 0RF Rx Instructions: One Touch meter (DME) lancets Misc See Rx Instructions .ROUTE .MEDSUPPLY Qty: 400 3RF Rx Instructions: As directed to check blood glucose four times daily. On insulin. Dispense one touch ultra insulin aspart U-100 [Novolog FlexPen U-100 Insulin] 100 unit/mL (3 mL) insulin pen 15 unit subcut AC Qty: 15 3RF Rx Instructions: 10-15 units sliding scale before meals (DME) Blood Glucose Test Strip See Rx Instructions .MEDSUPPLY Qty: 400 3RF Rx Instructions: As directed to check blood glucose four times daily. On insulin. Dispense one touch ultra magnesium oxide 400 mg (241.3 mg magnesium) tablet 400 mg PO BID Qty: 180 0RF omeprazole 40 mg capsule,delayed release(DR/EC) 40 mg PO DAILY Qty: 90 3RF nystatin 100,000 unit/gram powder 1 applic Topical BID PRN (Reason: fungal skin infection) Qty: 30 3RF Rx Instructions: Apply powder to affected area under R breast twice daily lorazepam 0.5 mg tablet See Rx Instructions PO DAILY PRN (Reason: dyspnea) Qty: 14 0RF Rx Instructions: Short term increase to BID PRN panic or shortness of breath orally daily PRN; (FYI to Prescriber @ [facility]) insulin degludec [Tresiba FlexTouch U-100] 100 unit/mL (3 mL) insulin pen 30 unit subcut DAILY Patient Comments: takes more than rx'd due to blood sugars being high Rx Instructions: 07/13/2024 PER [facility] decrease to 30 units losartan 25 mg tablet 25 mg PO DAILY spironolactone 25 mg tablet 25 mg PO DAILY polyethylene glycol 3350 [Miralax] 17 gram/dose powder 17 g PO DAILY PRN (Reason: constipation/gastroparesis) Qty: 238 0RF clonidine HCl 0.2 mg tablet 0.2 mg PO HS Patient Comments: TAKE 1 TABLET BY MOUTH EVERY NIGHT AT BEDTIME mirtazapine 15 mg tablet 15 mg PO HS Ajovy Autoinjector 225 mg/1.5 mL auto-injector 225 mg subcut QMONTH Botox 100 unit recon soln 300 unit IM ONCE Rx Instructions: divided among affected muscles clonidine HCl 0.1 mg tablet 0.1 mg PO BID Patient Comments: TAKE 1 TABLET BY MOUTH DURING THE DAY NEEDED AND 1 TABLET AT BEDTIME FOR ANXIETY lurasidone 80 mg tablet 80 mg PO DAILY Patient Comments: TAKE ONE TABLET BY MOUTH EVERY DAY WITH AT LEAST 350 CALORIES metoprolol succinate 25 mg tablet extended release 24 hr 100 mg PO DAILY Patient Comments: ran out 2 days ago furosemide [Lasix] 40 mg tablet 40 mg PO DAILY Qty: 14 0RF magnesium 250 mg tablet 250 mg PO DAILY Qty: 14 0RF Held valacyclovir 500 mg tablet 500 mg PO DAILY Qty: 90 3RF Hold Instructions: Resume on 11/06/24. Do not take while taking acyclovir Discharge Instructions Instructions: Bacterial Meningitis, Adult (DC), Headache, Adult ED, Viral Meningitis, Adult ED Additional Instructions: You are leaving AMA. Call your primary care doctor in the morning to schedule an appointment to be seen the same day. It is very important you do this as we have not ruled out meningitis and this can be very serious and lead to . There is not good evidence on oral antibiotics for meningitis but it is possible these may help if in fact you to have meningitis: -Doxycycline twice a day. -Levofloxacin one a day. -Acyclovir three times a day; do not take your valtrex while you are on the acyclovir. Return to the emergency department if you change your mind, your headache worsens, your vomiting worsens, your fever returns, you have numbness/weakness/vision changes/vertigo, or if you have any other concerns. Referrals: Kevin Lehman DO [Primary Care Provider] - Discharge Data Discharge Date/Time-TO BE ENTERED AT DEPARTURE: 11/02/24 20:36 HPI General Date/Time Provider Initiated Documentation: 11/02/24 14:37 . HPI Narrative: 44yo F with hx DM, migraines, currently being treated for HSV infection in eye reportedly diagnosed by ophthalmology presenting for fever, headache, and neck pain. Ramcarlos historian. About one week ago was started on antivirals and steroids for HSV eye infection. Over the past 4-5 days has had progressively worsening headache. Dull, throbbing, worse with moving her head. Some neck pain with movement. Does not feel like her prior migraines. Has had fevers up to 102F at home 'every once in a awhile'. No numbness, tingling, weakness, vision changes, or vertigo. No recent injuries. No sick contacts. No cough, rhinnoreha, dysuria, hematuria, or sore throat. Otherwise in her usual state of health. Related Data Home Medications ?Medication ?Instructions ?Recorded ?Confirmed acetaminophen 500 mg tablet 500 - 1,000 mg (1 - 2 x 500 mg) PO 09/24/19 11/02/24 Q8H PRN fever or pain #180 tab-caps alcohol swabs (Alcohol Pads) 1 pad topical QID #400 ea 10/25/22 11/02/24 pen needle, diabetic 32 gauge x #100 ea 06/30/23 11/02/24 5/32 (BD Ultra-Fine Yamini Pen Needle) blood-glucose meter #1 ea 08/28/23 11/02/24 lancets #400 ea 08/28/23 11/02/24 clonidine HCl 0.2 mg tablet 0.2 mg PO HS 11/21/23 11/02/24 insulin aspart U-100 100 unit/mL 15 unit (0.15 mL) subcut AC #15 mL 01/05/24 11/02/24 (3 mL) subcutaneous pen (Novolog FlexPen U-100 Insulin aspart) naloxone 4 mg/actuation nasal 4 mg intranasal Q2M PRN opioid 02/13/24 11/02/24 spray (Narcan) overdose #2 ea 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 04/12/24 11/02/24 #90 tab-caps blood sugar diagnostic (Blood #400 ea 04/26/24 11/02/24 Glucose Test strips) magnesium oxide 400 mg (241.3 mg 400 mg PO BID #180 tabs 04/26/24 11/02/24 magnesium) tablet mirtazapine 15 mg tablet 15 mg PO HS 05/03/24 11/02/24 omeprazole 40 mg capsule,delayed 40 mg PO DAILY #90 caps 05/20/24 11/02/24 release nystatin 100,000 unit/gram topical 1 applic topical BID PRN fungal 05/25/24 11/02/24 powder skin infection #30 grams albuterol sulfate 90 mcg/actuation 1 - 2 puff inhalation Q4-6H PRN ##1 05/31/24 11/02/24 aerosol inhaler fluticasone 250 mcg-salmeterol 50 1 inh inhalation BID #60 ea 05/31/24 11/02/24 mcg/dose blistr powdr for inhalation (Advair Diskus) gabapentin 300 mg capsule 300 mg PO HS PRN back pain #60 caps 05/31/24 11/02/24 glucagon 1 mg/0.2 mL subcutaneous 1 mg (0.2 mL) subcut ONCE #0.4 mL 05/31/24 11/02/24 auto-injector (Meseretoke Alexisen 2-Pack) ipratropium 0.5 mg-albuterol 3 mg 3 ml inhalation QID PRN wheezing 05/31/24 11/02/24 (2.5 mg base)/3 mL nebulization #180 mL soln methocarbamol 500 mg tablet 1,000 mg (2 x 500 mg) PO HS PRN 05/31/24 11/02/24 muscle spasm #90 tabs metoclopramide HCl 10 mg tablet 10 mg PO TID PRN 05/31/24 11/02/24 ondansetron 8 mg disintegrating 8 mg PO BID PRN nausea and 05/31/24 11/02/24 tablet vomiting #60 tabs fremanezumab-vfrm 225 mg/1.5 mL 225 mg subcut QMONTH 06/07/24 11/02/24 subcutaneous auto-injector (Ajovy) onabotulinumtoxinA 100 unit 300 unit IM ONCE 06/07/24 11/02/24 solution for injection (Botox) lurasidone 80 mg tablet 80 mg PO DAILY 06/08/24 11/02/24 atorvastatin 80 mg tablet 80 mg PO DAILY #90 tabs 06/23/24 11/02/24 blood-glucose sensor (Dexcom G6 #3 ea 06/23/24 11/02/24 Sensor device) methadone 10 mg/mL oral 77 mg PO DAILY 06/23/24 11/02/24 concentrate (Methadone Intensol) blood-glucose transmitter (Dexcom #3 ea 07/07/24 11/02/24 G6 Transmitter device) foam pillow #1 ea 07/07/24 11/02/24 metoprolol succinate 50 mg 50 mg PO DAILY recent [place] #30 tabs 07/07/24 11/02/24 tablet,extended release 24 hr pregabalin 200 mg capsule 200 mg PO TID #90 caps 07/07/24 11/02/24 lorazepam 0.5 mg tablet See Rx Instructions PO DAILY PRN 07/08/24 11/02/24 dyspnea #14 tabs insulin degludec 100 unit/mL (3 30 unit subcut DAILY 07/13/24 11/02/24 mL) subcutaneous pen (Tresiba FlexTouch U-100 insulin) losartan 25 mg tablet 25 mg PO DAILY 07/14/24 11/02/24 spironolactone 25 mg tablet 25 mg PO DAILY 07/14/24 11/02/24 furosemide 40 mg tablet (Lasix) 40 mg PO DAILY #14 tabs 07/18/24 11/02/24 magnesium 250 mg tablet 250 mg PO DAILY #14 tabs 07/18/24 11/02/24 metoprolol succinate 25 mg 100 mg PO DAILY 07/18/24 11/02/24 tablet,extended release 24 hr polyethylene glycol 3350 17 17 g PO DAILY PRN 08/02/24 11/02/24 gram/dose oral powder (Miralax) constipation/gastroparesis #238 grams clonidine HCl 0.1 mg tablet 0.1 mg PO BID 09/19/24 11/02/24 acyclovir 200 mg capsule 200 mg PO TID #9 caps 11/02/24 doxycycline hyclate 100 mg tablet 100 mg PO BID #6 tabs 11/02/24 levofloxacin 500 mg tablet 500 mg PO DAILY #3 tabs 11/02/24 Previous Rx's ?Medication ?Instructions ?Recorded acetaminophen 500 mg tablet 500 - 1,000 mg (1 - 2 x 500 mg) PO 09/24/19 Q8H PRN fever or pain #180 tab-caps alcohol swabs (Alcohol Pads) 1 pad topical QID #400 ea 10/25/22 pen needle, diabetic 32 gauge x #100 ea 06/30/23 (BD Ultra-Fine Yamini Pen Needle) blood-glucose meter #1 ea 08/28/23 lancets #400 ea 08/28/23 insulin aspart U-100 100 unit/mL 15 unit (0.15 mL) subcut AC #15 mL 01/05/24 (3 mL) subcutaneous pen (Novolog FlexPen U-100 Insulin aspart) naloxone 4 mg/actuation nasal 4 mg intranasal Q2M PRN opioid 02/13/24 spray (Narcan) overdose #2 ea 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 04/12/24 #90 tab-caps blood sugar diagnostic (Blood #400 ea 04/26/24 Glucose Test strips) magnesium oxide 400 mg (241.3 mg 400 mg PO BID #180 tabs 04/26/24 magnesium) tablet omeprazole 40 mg capsule,delayed 40 mg PO DAILY #90 caps 05/20/24 release nystatin 100,000 unit/gram topical 1 applic topical BID PRN fungal 05/25/24 powder skin infection #30 grams albuterol sulfate 90 mcg/actuation 1 - 2 puff inhalation Q4-6H PRN ##1 05/31/24 aerosol inhaler fluticasone 250 mcg-salmeterol 50 1 inh inhalation BID #60 ea 05/31/24 mcg/dose blistr powdr for inhalation (Advair Diskus) gabapentin 300 mg capsule 300 mg PO HS PRN back pain #60 caps 05/31/24 glucagon 1 mg/0.2 mL subcutaneous 1 mg (0.2 mL) subcut ONCE #0.4 mL 05/31/24 auto-injector (Gvoke HypoPen 2-Pack) ipratropium 0.5 mg-albuterol 3 mg 3 ml inhalation QID PRN wheezing 05/31/24 (2.5 mg base)/3 mL nebulization #180 mL soln methocarbamol 500 mg tablet 1,000 mg (2 x 500 mg) PO HS PRN 05/31/24 muscle spasm #90 tabs ondansetron 8 mg disintegrating 8 mg PO BID PRN nausea and 05/31/24 tablet vomiting #60 tabs atorvastatin 80 mg tablet 80 mg PO DAILY #90 tabs 06/23/24 blood-glucose sensor (Dexcom G6 #3 ea 06/23/24 Sensor device) blood-glucose transmitter (Dexcom #3 ea 07/07/24 G6 Transmitter device) foam pillow #1 ea 07/07/24 metoprolol succinate 50 mg 50 mg PO DAILY recent [place] #30 tabs 07/07/24 tablet,extended release 24 hr pregabalin 200 mg capsule 200 mg PO TID #90 caps 07/07/24 lorazepam 0.5 mg tablet See Rx Instructions PO DAILY PRN 07/08/24 dyspnea #14 tabs furosemide 40 mg tablet (Lasix) 40 mg PO DAILY #14 tabs 07/18/24 magnesium 250 mg tablet 250 mg PO DAILY #14 tabs 07/18/24 polyethylene glycol 3350 17 17 g PO DAILY PRN 08/02/24 gram/dose oral powder (Miralax) constipation/gastroparesis #238 grams acyclovir 200 mg capsule 200 mg PO TID #9 caps 11/02/24 doxycycline hyclate 100 mg tablet 100 mg PO BID #6 tabs 11/02/24 levofloxacin 500 mg tablet 500 mg PO DAILY #3 tabs 11/02/24 Allergies Allergy/AdvReac Type Severity Reaction Status Date / Time Penicillins Allergy Severe lip and Verified 11/02/24 14:48 facial swelling lamotrigine (From Lamictal) Allergy Unknown Skin Rash Verified 11/02/24 14:48 clindamycin AdvReac Severe Nausea & Verified 11/02/24 14:48 vomiting aspirin AdvReac Intermediate nausea/pain Verified 11/02/24 14:48 General Stated Complaint: Nk/Back Pain CARLOS: 3 Review of Systems Narrative: see HPI Exam Narrative Exam Narrative: General: Alert, does not appear to be acute distress Head: Normocephalic, atraumatic Neck: Trachea midline. ENT: ?MMM.? No oropharygeal lesions or exudate. Cardiac: ?RRR, no murmurs appreciated Resp: No respiratory distress. CTAB. Abd: ?Soft, non-distended, nontender : ?No suprapubic tenderness. . Extremities: ?No deformities.? No peripheral edema. Neuro: ? GCS 15.? PERRL.? EOMI.? Fluent speech, no dysarthria. Motor- 5/5 strength symmetric bilateral upper and lower extremities Sensation- ?Intact to light touch and symmetric multiple dermatomes including upper and lower extremities Coordination- No dysmetria on finger to nose Reflexes- 2/4 achilles & patellar, no clonus Gait/station: ?Normal stance.? No truncal ataxia. Steady gait with equal normal steps -[place] Pain with passive flexion of neck and has questionable neck stiffness. CRANIAL NERVES: II: Pupils equal and reactive, III, IV, : EOM intact, no gaze preference or deviation, no nystagmus. V: normal sensation in V1, V2, and V3 segments bilaterally VII: no asymmetry, no nasolabial fold flattening VIII: normal hearing to speech IX, X: normal palatal elevation, no uvular deviation XI: 5/5 head turn and 5/5 shoulder shrug bilaterally XII: midline tongue protrusion Course Vital Signs Vital signs: Vital Signs Temperature 36.6 C 11/02/24 14:38 Pulse 61 11/02/24 14:38 Respiratory Rate 16 11/02/24 14:38 Blood Pressure 157/92 H 11/02/24 14:38 Pulse Oximetry 94 11/02/24 14:38 Temperature 36.6 C 11/02/24 14:38 Pulse 61 11/02/24 14:38 Respiratory Rate 16 11/02/24 14:38 Blood Pressure 157/92 H 11/02/24 14:38 Pulse Oximetry 94 11/02/24 14:38 Pain Level 9 11/02/24 14:38 Lab/Test Results Lab/Test Results: 11/02/24 16:12 Blood Blood Culture - Pending 11/02/24 16:12 Blood Blood Culture - Pending Laboratory Tests Range/Units 11/02/24 14:53 WBC (4.4-10.8) 10^3/uL 8.59 RBC (3.93-5.22) 10^6/uL 5.11 Hgb (11.2-15.7) g/dL 11.4 Hct (36.0-46.0) % 38.6 MCV (80-95) fL 76 L MCH (27.0-33.0) pg 22.3 L MCHC (32.0-36.0) % 29.5 L RDW (11.7-14.6) % 17.9 H Plt Count (130-400) 10^3/uL 229 MPV (8.0-11.0) fL 10.8 Immature Gran % % 0.6 Neutrophils % % 68.4 Lymphocytes % % 24.6 Monocytes % % 4.9 Eosinophils % % 1.0 Basophils % % 0.5 Nucleated RBC % (0.0-0.3) % 0.0 Absolute Neutrophils (1.2-6.7) 10^3/uL 5.88 Absolute Lymphocytes (1.2-3.4) 10^3/uL 2.11 Absolute Monocytes (0.1-0.8) 10^3/uL 0.42 Absolute Eosinophils (0.0-0.7) 10^3/uL 0.09 Absolute Basophils (0.0-0.2) 10^3/uL 0.04 VBG pH (7.31-7.41) 7.35 VBG pCO2 (41-51) mmHg 51 VBG pO2 mmHg 47 VBG HCO3 (23-28) mmol/L 28 VBG Total CO2 (24-29) mmol/L 26 VBG O2 Saturation % 85 VBG Base Excess (-2-3) mmol/L 2 Sodium (136-145) mmol/L 134 L Potassium (3.5-5.1) mmol/L 5.1 Chloride (98-107) mmol/L 100 Carbon Dioxide (21.0-32.0) mmol/L 29.6 Anion Gap (3-11) mmol/L 4.4 BUN (7-18) mg/dL 23 H Creatinine (0.55-1.02) mg/dL 1.0 Est GFR (CKD-EPI 2020) (mL/min/1.73m2) 70.36 Glucose (74-106) mg/dL 453 H Calcium (8.5-10.1) mg/dL 9.3 Magnesium (1.8-2.4) mg/dL 1.6 L Total Bilirubin (0.2-1.0) mg/dL 0.22 AST (15-37) U/L 14 L ALT (14-59) U/L 25 Alkaline Phosphatase (46-116) U/L 174 H Total Protein (6.4-8.2) g/dL 7.0 Albumin (3.4-5.0) g/dL 3.1 L Procedure Lumbar Puncture Date of Procedure: 11/03/24 Time of procedure: 17:00 Provider that performed the procedure: Georgina Aguilar Indication: Diagnostic Patient Consented: Verbally Standard Time Out Performed: Yes Sterility: Sterile Local anesthetic: Lidocaine 2% Amount of local anesthetic used(mL): 5 Placement Site: L4-L5 Interspace Spinal Needle Type: Maribel 25 Gauge Needle Length: Other (6inch) Lumbar Puncture Procedure: Site Prepped, Sterile Drape Placed, 1% Lidocaine to skin and subcutaneous tissue with 25G needle and Introducer Needle Used Patient Position: Sitting Number of Attempts(see previous attempts in note section): 2 Paresthesia: None Procedure Tolerated: No Complications Procedure Outcome: Unsuccessful Procedure Description/Note: Attempted x 2, L4-L5 interface on initial attempt and L3-L4 on 2nd attempt with both unsuccessful. Procedure complicated by body habitus. Able to easily insert to vertebrae but unable to access interspace. Medical Decision Making Upon triage I was notified by nursing of pt presenting for multiple concerns including recent fall, back pain, increased thirst, increased urination, migraines, eye infection. Blood glucose in triage 460. No ED room available at this time; ordered labs to screen for DKA and patient informed by nursing that she will be evaluated in the main department when room available. Upon my evaluation, 44yo F with hx DM, migraines, currently being treated for HSV infection in eye reportedly diagnosed by ophthalmology presenting for fever, headache, and neck pain. Headache is not typical of her migraines. Tmax 103F at home. Is rambling historian and has some difficultly narrowing in on symptoms . Vital signs reassuring on arrival. Non-toxic on exam. No focal neurologic deficits. Does have possible neck stiffness on exam, certainly has pain with passive flexion at neck. With history primarily concerned for potential for HSV meningitis but must also consider bacterial, though she is not overtly toxic on exam. Will get head CT (unable to evaluate for pappilledema), start empiric ab x, tylenol for ALEXANDER, and get LP. CT independently reviewed, no SAH/SDH/ICH on my view, radiology read with no acute findings. Labs reviewed as below, CBC reassuring with no leukocytosis or anemia, CMP with no actionable abnormalities, Mg slightly low (oral replacement ordered), VBG normal. Blood cultures sent. Respiratory viral swab negative. ALEXANDER continues despite tyleol; tried compazine and benadryl also with no improvement. LP attempted x 2 and regrettably unsuccessful. Procedure complicated somewhat by body habitus and moreso by difficulty with pt maintaining/tolerating flexed position. Reached out to [facility] for possible transfer for IR guided LP, declined for capacity. Also reached out to [facility] with same result ([facility] states may have availability tomorrow). While I was on the phone with [facility], I was notified by nursing that pt was wanting to leave AMA. I discussed with Ms. Gentile and her at bedside that I am concerned we have not ruled out meningitis at this time, which can result in serious disability or . She states to me that she wants to leave because we are 'not able to do anything here' and that she is considering driving to [facility] but 'might not because the weather is getting really bad'. She verbalized understanding of my concerns and again stated that she was not willing to stay any longer. With much persuading, she did agree to stay long enough for us to obtain oral medications for her to take at home. I discussed that there is not good evidence for any oral outpatient treatment regimen for bacterial meningitis, however it may be better than nothing if she is not willing to stay for IV treatment. She verbalized understanding of this. She had decision making capacity and I have no indication to hold her against her will. I encouraged her to return at any time if she changes her mind, or to seek care at another instituition if she would prefer to do that. She expressed understanding of my instructions. States if she does not go to another hospital tonight, she will followup with her PCP in the morning. Referral also sent to her PCP from the ED. Discharged with PO acyclovir, levofloxacin, and doxycycline. Quality:SDOH Health Related Social Needs: No Data to Display PFSH All Active Problems (Updated 11/03/24 @ 00:04 by ALVINA BENTLEY) HSV (herpes simplex virus) infection (Acute) Headache (Acute) Orthopnea (Acute) Edema of both lower legs (Acute) l>r .. chf? INACTIVITY? Myocardial infarction acute (Acute) Fatty infiltration of liver (Acute) Hx cirrhosis? 2' pancreatitis (05/2024)? Elevated troponin level not due myocardial infarction (Acute ~05/2024) ?type 2 ACS Acute postoperative abdominal pain (Acute) Diabetic ketoacidosis (Acute ~05/2024) Corneal abrasion (Acute) Obstructive sleep apnea of adult (Acute) [facility] 12/23/23 Muscle spasm of left lower extremity (Acute) Muscle spasm of back (Acute) Diabetic cataract of right eye (Acute) Ulcer of right foot limited to breakdown of skin (Acute 04/16/23) [facility] Ulcer of left foot, limited to breakdown of skin (Acute 04/16/23) [facility] Iron deficiency (Acute) 03/2023 iron studies indicating deficiency (NOT anemic) Migraine (Chronic) [facility] Chronic constipation (Chronic) [facility] Type 2 diabetes mellitus, with long-term current use of insulin (Chronic) With neuropathy & retinopathy (left, mild) Obesity (Chronic) Cirrhosis of liver (Chronic) [facility] Diabetic neuropathy (Acute) Asthma (Chronic) Tobacco use disorder (Chronic) Started smoking age 9 Poorly controlled type 2 diabetes mellitus (Chronic 03/23/18) Polypharmacy (Chronic 12/14/15) Mild nonproliferative diabetic retinopathy associated with type 2 diabetes mellitus (Chronic 01/22/16) Mental health disorder (Chronic) Pt reports being diagnosed with bipolar disorder, disassociative disorder, anxiety, & multiple personality disorder Hypomagnesemia (Chronic 09/30/16) Hyperlipidemia (Chronic 09/30/16) 10-year ASCVD risk = unable to calculate due to not being age 40+ however dx T2DM, so Rx for statin 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 Jimenez [facility] [facility]: [facility] Depressive disorder (Chronic 10/31/14) ADMISSION SUICIDAL THOUGHTS 06/13/14 OD ATTEMPTS IN PAST Chronic nausea (Chronic) EGD 04/16/16 Dr. 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) Medical History DKA (diabetic ketoacidosis) Acute gallstone pancreatitis Acute pancreatitis Opioid use disorder MAT with methadone Chronic fatigue (07/19/15) Osteomyelitis Dyspareunia in female (07/09/17) Punctate keratitis of both eyes Ulcer of foot due to secondary diabetes Umbilical hernia (03/11/18) 03/17/2018: [facility] Premature surgical menopause JAD/BSO in late 20s, no HRT Hepatitis C 02/14/2016 labwork: undetectable RNA level Surgical History S/P cholecystectomy (06/12/24) Dr Reyes Status post total hysterectomy and bilateral salpingo-oophorectomy (~2006) noncancerous reasons Status post left foot surgery (10/2022) Left fourth metatarsal head excision for chronic ulcer, osteomyelitis ([facility]/Tamia Vidales, DP) Status post section (~2003) EGD (04/16/16) Dr. Ferrer Family History Mother , 46yo due to kidney & liver failure due to alcohol Substance use disorder Alcohol use disorder Father , 62yo from ALS Substance use disorder Alcohol use disorder ALS (amyotrophic lateral sclerosis) Grandmother Colon cancer Paternal Paternal Uncle Cardiac arrest Substance use disorder Alcohol and Pain Medication Abuse Social History Smoking/Tobacco Use Status: Current every day Tobacco Type: cigarettes Smoking packs per day: 1 Smoking cigarettes per day: 20.0 Tobacco: How many years used: 33 Quit status: considering quitting Smoking risk assessment performed?: Yes Alcohol Intake: never Drug use: Occasionally Substance use type: former substance user and marijuana Details: Pt. 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 Pets and animals: Yes (1 dog, 4 cats) Pets and animals: cat(s) and dog(s) Sexually active: Yes Do you think of yourself as: straight/heterosexual Current gender identity: female Other: 09/2022: pt reports she is engaged What is your relationship status?: How often do you talk on the phone with friends or family?: three or more times per week How often do you get together with friends or relatives?: once per week How often do you attend christian or roman catholic services?: decline to answer Do you belong to any clubs or organized social groups?: no Panel score (0-1 are the most socially isolated patients): 2 What type of physical activity do you participate in: none Duration: decline to answer Frequency: decline to answer Seatbelt use: always Helmet use: No (No reason to wear one) 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
[2024-11-02] MEDS: Magnesium Gluconate 500 MG TAB 1000 MG PO (17:08)
[2024-11-02] MEDS: VANCOMYCIN/WATER (PEG) 750 MG/150 ML BAG 150 MG IV (17:16)
[2024-11-02] MEDS: Povidone-Iodine Soln. 118 ML BTL (17:45)
[2024-11-02 17:52] LABS: COVID-19 PCR Negative (Negative); Influenza A PCR Negative (Negative); Influenza B PCR Negative (Negative); RSV PCR Negative (Negative); Source Nasopharynx
[2024-11-02] MEDS: ACETAMINOPHEN 1,000 MG/100 ML BAG 400 MG IVPB (18:46)
[2024-11-02] MEDS: Prochlorperazine 10 MG/2 ML VIAL IM (18:46)
[2024-11-02] MEDS: diphenhydrAMINE 50 MG/ML VIAL IM/IVP (18:47)
[2024-11-02] MEDS: Doxycycline Hyclate 100 MG CAP 400 MG PO (20:22)
[2024-11-02] MEDS: levoFLOXacin 500 MG TAB 1000 MG PO (20:23)
--- NOTE | 2024-11-06 08:31 | NUR.NOTE ---
Access chart to determine if there was a provider note. Nursing Note:
== END 2024-11-02 20:36 | disposition left against medical advice (07) ==
PROVIDERS: Emergency Provider Student in an Organized Health Care Education/Training Program; PCP Internal Medicine
DX: R51.9 Headache, unspecified (principal); B00.50 Herpesviral ocular disease, unspecified; E11.40 Type 2 diabetes mellitus with diabetic neuropathy, unspecified; E11.319 Type 2 diabetes mellitus with unspecified diabetic retinopathy without macular edema; I25.2 Old myocardial infarction; F17.210 Nicotine dependence, cigarettes, uncomplicated; E78.5 Hyperlipidemia, unspecified; Z79.4 Long term (current) use of insulin; Z53.29 Procedure and treatment not carried out because of patient's decision for other reasons
CPT/HCPCS: 62270; 80053; 82805; 82962; 87040; 87637; 96365; 96367; 96368; 96372; 96375; 99284; 70450; 83735; 85025; J0131; J0780; J1200; J2183; J3372

== ENCOUNTER 2024-11-22 20:01 | Emergency (ER) | payer OTHER, SELFPAY ==
--- NOTE | 2024-11-22 20:00 | RT.EKG_ITS ---
APPROVED REPORT Exam: Resting ECG Reason for Exam: chest tightness, SOB Patient Location: E HR:68 bpm ECG Measurements Heart Rate 68 AXIS TN 187 P 54 QRSd 85 QRS 69 QT 400 T 50 QTc 425 Conclusion Sinus rhythm...normal P axis, V-rate 60- 99 Low voltage, precordial leads...precordial leads <1.0mV
[2024-11-22 20:11] VITALS: BP 185/73; PULSE 69; RESP 15; TEMP 36.4; O2SAT 96
== END 2024-11-22 21:35 | disposition left against medical advice (07) ==
LOC: ER 20:19
PROVIDERS: PCP Internal Medicine
DX: Z53.21 Procedure and treatment not carried out due to patient leaving prior to being seen by health care provider (principal)
CPT/HCPCS: 93005; 93010

== ENCOUNTER 2025-01-10 08:23 | Emergency (ER) | payer OTHER, SELFPAY ==
--- NOTE | 2025-01-10 08:15 | RT.EKG_ITS ---
APPROVED REPORT Exam: Resting ECG Reason for Exam: chest pain Patient Location: E HR:70 bpm ECG Measurements Heart Rate 70 AXIS UT 182 P 43 QRSd 84 QRS 24 QT 383 T 71 QTc 414 Conclusion Sinus rhythm, rate 70 No interval abnormalities No STEMI No significant changes from priors
[2025-01-10 08:25] VITALS: BP 114/82; PULSE 72; RESP 14; O2SAT 92
--- NOTE | 2025-01-10 08:30 | DI.RAD_ITS ---
Exam(s) XR PORTABLE CHEST AP EXAM: XR PORTABLE CHEST AP CLINICAL HISTORY: Chest pain TECHNIQUE: 2D digital imaging was performed of the chest. One image was obtained. An AP view was ob tained. COMPARISON: CR XR PORTABLE CHEST AP from 09/19/2024 FINDINGS: MEDIASTINUM: Normal. HEART: Normal. PULMONARY VASCULATURE: Normal. LUNGS: Clear. PLEURAL SPACE: No pleural effusion or pneumothorax. BONE:Within normal limits for the patient's age. OTHER FINDINGS:Normal. IMPRESSION: No acute pulmonary findings. DATA REPOSITORY: RADIATION DOSE DELIVERED:
--- NOTE | 2025-01-10 08:33 | W.ED.GENAD ---
Discharge Plan Disposition Patient Disposition: Home Condition: Stable Discharge Details Clinical Impression: Chest pain Primary Care Provider: Kevin Lehman ED Provider: Sandrita Gautam Home Meds and New Rx's Prescriptions: Continued albuterol sulfate 90 mcg/actuation HFA aerosol inhaler 1 - 2 puff Inhalation Q4-6H PRN Qty: 1 1RF Rx Instructions: DISPENSE ALBUTEROL INHALER BRAND COVERED BY INSURANCE metoclopramide HCl 10 mg tablet 10 mg PO TID PRN Rx Instructions: administer 30 minutes before meals ondansetron 8 mg tablet,disintegrating 8 mg PO BID PRN (Reason: nausea and vomiting) Qty: 60 11RF gabapentin 300 mg capsule 300 mg PO HS PRN (Reason: back pain) Qty: 60 0RF Gvoke HypoPen 2-Pack 1 mg/0.2 mL auto-injector 1 mg subcut ONCE Qty: 0.4 1RF Rx Instructions: HYPOGLYCEMIA; as a single dose; may repeat once after 15 minutes if no response methocarbamol 500 mg tablet 1,000 mg PO HS PRN (Reason: muscle spasm) Qty: 90 0RF Rx Instructions: Use lowest effective dose for shortest duration for muscle spasm ipratropium-albuterol 0.5 mg-3 mg(2.5 mg base)/3 mL solution for nebulization 3 ml inhalation QID PRN (Reason: wheezing) Qty: 180 1RF Rx Instructions: During asthma exacerbation, may use preventatively TID, titrating down to QID PRN as wheeze & SOB improve. fluticasone propion-salmeterol [Advair Diskus] 250-50 mcg/dose blister with device 1 inh inhalation BID Qty: 60 1RF Rx Instructions: Please use this during asthma exacerbations, wean off as shortness of breath & wheeze improve. atorvastatin 80 mg tablet 80 mg PO DAILY Qty: 90 3RF (DME) Dexcom G6 Sensor Device See Rx Instructions .ROUTE .COMPLEX Qty: 3 6RF Dose Instruction: USE DIRECTED Rx Instructions: USE DIRECTED methadone [Methadone Intensol] 10 mg/mL concentrate 77 mg PO DAILY albuterol sulfate 90 mcg/actuation HFA aerosol inhaler 2 puff inhalation Q6H PRN (Reason: shortness of breath or wheezing) Qty: 8.5 0RF naloxone [Narcan] 4 mg/actuation spray,non-aerosol 4 mg intranasal Q2M PRN (Reason: opioid overdose) Qty: 2 0RF Rx Instructions: spray 1 dose into ONE nostril; alternate nostrils w each dose until help arrives (DME) [employer] G6 Transmitter Device See Rx Instructions .Route Qty: 3 3RF Rx Instructions: As directed pregabalin 200 mg capsule 200 mg PO TID Qty: 90 3RF metoprolol succinate 50 mg tablet extended release 24 hr 50 mg PO DAILY Qty: 30 1RF Rx Instructions: Trial lower dose (50+25=75mg) due to fatigue/SOB (on 100mg) (DME) foam pillow triangular See Rx Instructions .Route .MEDSUPPLY Qty: 1 0RF Rx Instructions: Trial sleeping & resting (legs need elevation) @ 30-40' angle to alleviate SOB/Panic acetaminophen 500 mg tablet 500 - 1,000 mg PO Q8H MDD 3000 mg PRN (Reason: fever or pain) Qty: 180 0RF Rx Instructions: 1 month supply (DME) pen needle, diabetic [BD Ultra-Fine Yamini Pen Needle] 32 gauge x 5/32 needle See Rx Instructions .ROUTE .COMPLEX Qty: 100 0RF Dose Instruction: USE TO ADMINISTER INSULIN ONCE DAILY Rx Instructions: USE TO ADMINISTER INSULIN ONCE DAILY (DME) blood-glucose meter Misc See Rx Instructions .Route Qty: 1 0RF Rx Instructions: One Touch meter (DME) lancets Misc See Rx Instructions .ROUTE .MEDSUPPLY Qty: 400 3RF Rx Instructions: As directed to check blood glucose four times daily. On insulin. Dispense one touch ultra insulin aspart U-100 [Novolog FlexPen U-100 Insulin] 100 unit/mL (3 mL) insulin pen 15 unit subcut AC Qty: 15 3RF Rx Instructions: 10-15 units sliding scale before meals valacyclovir 500 mg tablet 500 mg PO DAILY Qty: 90 3RF (DME) Blood Glucose Test Strip See Rx Instructions .MEDSUPPLY Qty: 400 3RF Rx Instructions: As directed to check blood glucose four times daily. On insulin. Dispense one touch ultra magnesium oxide 400 mg (241.3 mg magnesium) tablet 400 mg PO BID Qty: 180 0RF omeprazole 40 mg capsule,delayed release(DR/EC) 40 mg PO DAILY Qty: 90 3RF nystatin 100,000 unit/gram powder 1 applic Topical BID PRN (Reason: fungal skin infection) Qty: 30 3RF Rx Instructions: Apply powder to affected area under R breast twice daily lorazepam 0.5 mg tablet See Rx Instructions PO DAILY PRN (Reason: dyspnea) Qty: 14 0RF Rx Instructions: Short term increase to BID PRN panic or shortness of breath orally daily PRN; (FYI to Prescriber @ [facility]) insulin degludec [Tresiba FlexTouch U-100] 100 unit/mL (3 mL) insulin pen 140 unit subcut DAILY Patient Comments: takes more than rx'd due to blood sugars being high Rx Instructions: 07/13/2024 [place] [facility] 30 units losartan 25 mg tablet 25 mg PO DAILY spironolactone 25 mg tablet 25 mg PO DAILY polyethylene glycol 3350 [Miralax] 17 gram/dose powder 17 g PO DAILY PRN (Reason: constipation/gastroparesis) Qty: 238 0RF clonidine HCl 0.2 mg tablet 0.2 mg PO HS Patient Comments: TAKE 1 TABLET BY MOUTH EVERY NIGHT AT BEDTIME mirtazapine 15 mg tablet 15 mg PO HS Ajovy Autoinjector 225 mg/1.5 mL auto-injector 225 mg subcut QMONTH Botox 100 unit recon soln 300 unit IM ONCE Rx Instructions: divided among affected muscles clonidine HCl 0.1 mg tablet 0.1 mg PO BID Patient Comments: TAKE 1 TABLET BY MOUTH DURING THE DAY NEEDED AND 1 TABLET AT BEDTIME FOR ANXIETY lurasidone 80 mg tablet 80 mg PO DAILY Patient Comments: TAKE ONE TABLET BY MOUTH EVERY DAY WITH AT LEAST 350 CALORIES metoprolol succinate 25 mg tablet extended release 24 hr 100 mg PO DAILY Patient Comments: ran out 2 days ago furosemide [Lasix] 40 mg tablet 40 mg PO DAILY Qty: 14 0RF Discharge Instructions Instructions: Chest Pain, Adult ED Additional Instructions: At this time your cardiac workup is within normal limits. No evidence of pneumonia or blood clot in your lung. Your blood sugar was high your repeat glucose check was 460. Please check your blood sugar when you get home and take some insulin according to your sliding scale. Follow up with primary care provider in 3-5 days. Return to ED sooner if any worsening or concerns. Referrals: Kevin Lehman DO [Primary Care Provider] - 3 days HPI General Mode of arrival: ambulatory. Date/Time Provider Initiated Documentation: 01/10/25 08:26. Limitations to Documentation: no limitations. Information obtained by: patient, RN notes reviewed and old records reviewed. HPI Narrative: 44-year-old obese female with history of hepatitis C, insulin-dependent diabetes, hypertension, ID, Cirrhosis, high cholesterol, CHF, pancreatitis history of opioid use disorder who presents with chest pain since this morning which is intermittent and described as sharp. She did take 2 nitro prior to arrival at 5 this morning which helped. Associated with weakness in her left arm nausea and shortness of breath. Patient is a daily smoker, denies any drugs or alcohol, she reports that she took a nitro and the pain returned about an hour after that. She also endorses nausea and diarrhea this morning. Related Data Home Medications ?Medication ?Instructions ?Recorded ?Confirmed acetaminophen 500 mg tablet 500 - 1,000 mg (1 - 2 x 500 mg) PO 09/24/19 01/10/25 Q8H PRN fever or pain #180 tab-caps pen needle, diabetic 32 gauge x #100 ea 06/30/23 01/10/25 (BD Ultra-Fine Yamini Pen Needle) blood-glucose meter #1 ea 08/28/23 01/10/25 lancets #400 ea 08/28/23 01/10/25 clonidine HCl 0.2 mg tablet 0.2 mg PO HS 11/21/23 01/10/25 insulin aspart U-100 100 unit/mL 15 unit (0.15 mL) subcut AC #15 mL 01/05/24 01/10/25 (3 mL) subcutaneous pen (Novolog FlexPen U-100 Insulin aspart) naloxone 4 mg/actuation nasal 4 mg intranasal Q2M PRN opioid 02/13/24 01/10/25 spray (Narcan) overdose #2 ea 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 04/12/24 01/10/25 #90 tab-caps blood sugar diagnostic (Blood #400 ea 04/26/24 01/10/25 Glucose Test strips) magnesium oxide 400 mg (241.3 mg 400 mg PO BID #180 tabs 04/26/24 01/10/25 magnesium) tablet mirtazapine 15 mg tablet 15 mg PO HS 05/03/24 01/10/25 omeprazole 40 mg capsule,delayed 40 mg PO DAILY #90 caps 05/20/24 01/10/25 release nystatin 100,000 unit/gram topical 1 applic topical BID PRN fungal 05/25/24 01/10/25 powder skin infection #30 grams albuterol sulfate 90 mcg/actuation 1 - 2 puff inhalation Q4-6H PRN ##1 05/31/24 01/10/25 aerosol inhaler fluticasone 250 mcg-salmeterol 50 1 inh inhalation BID #60 ea 05/31/24 01/10/25 mcg/dose blistr powdr for inhalation (Advair Diskus) gabapentin 300 mg capsule 300 mg PO HS PRN back pain #60 caps 05/31/24 01/10/25 glucagon 1 mg/0.2 mL subcutaneous 1 mg (0.2 mL) subcut ONCE #0.4 mL 05/31/24 01/10/25 auto-injector (Gvoke HypoPen 2-Pack) ipratropium 0.5 mg-albuterol 3 mg 3 ml inhalation QID PRN wheezing 05/31/24 01/10/25 (2.5 mg base)/3 mL nebulization #180 mL soln methocarbamol 500 mg tablet 1,000 mg (2 x 500 mg) PO HS PRN 05/31/24 01/10/25 muscle spasm #90 tabs metoclopramide HCl 10 mg tablet 10 mg PO TID PRN 05/31/24 01/10/25 ondansetron 8 mg disintegrating 8 mg PO BID PRN nausea and 05/31/24 01/10/25 tablet vomiting #60 tabs fremanezumab-vfrm 225 mg/1.5 mL 225 mg subcut QMONTH 06/07/24 01/10/25 subcutaneous auto-injector (Ajovy) onabotulinumtoxinA 100 unit 300 unit IM ONCE 06/07/24 01/10/25 solution for injection (Botox) lurasidone 80 mg tablet 80 mg PO DAILY 06/08/24 01/10/25 atorvastatin 80 mg tablet 80 mg PO DAILY #90 tabs 06/23/24 01/10/25 blood-glucose sensor ([employer] G6 #3 ea 06/23/24 01/10/25 Sensor device) methadone 10 mg/mL oral 77 mg PO DAILY 06/23/24 01/10/25 concentrate (Methadone Intensol) blood-glucose transmitter ([employer] #3 ea 07/07/24 01/10/25 G6 Transmitter device) foam pillow #1 ea 07/07/24 01/10/25 metoprolol succinate 50 mg 50 mg PO DAILY recent ID #30 tabs 07/07/24 01/10/25 tablet,extended release 24 hr pregabalin 200 mg capsule 200 mg PO TID #90 caps 07/07/24 01/10/25 lorazepam 0.5 mg tablet See Rx Instructions PO DAILY PRN 07/08/24 01/10/25 dyspnea #14 tabs insulin degludec 100 unit/mL (3 140 unit subcut DAILY 07/13/24 01/10/25 mL) subcutaneous pen (Tresiba FlexTouch U-100 insulin) losartan 25 mg tablet 25 mg PO DAILY 07/14/24 01/10/25 spironolactone 25 mg tablet 25 mg PO DAILY 07/14/24 01/10/25 furosemide 40 mg tablet (Lasix) 40 mg PO DAILY #14 tabs 07/18/24 01/10/25 metoprolol succinate 25 mg 100 mg PO DAILY 07/18/24 01/10/25 tablet,extended release 24 hr polyethylene glycol 3350 17 17 g PO DAILY PRN 08/02/24 01/10/25 gram/dose oral powder (Miralax) constipation/gastroparesis #238 grams clonidine HCl 0.1 mg tablet 0.1 mg PO BID 09/19/24 01/10/25 albuterol sulfate 90 mcg/actuation 2 puff inhalation Q6H PRN 11/09/24 01/10/25 aerosol inhaler shortness of breath or wheezing #8.5 grams Previous Rx's ?Medication ?Instructions ?Recorded acetaminophen 500 mg tablet 500 - 1,000 mg (1 - 2 x 500 mg) PO 09/24/19 Q8H PRN fever or pain #180 tab-caps pen needle, diabetic 32 gauge x #100 ea 06/30/23 (BD Ultra-Fine Yamini Pen Needle) blood-glucose meter #1 ea 08/28/23 lancets #400 ea 08/28/23 insulin aspart U-100 100 unit/mL 15 unit (0.15 mL) subcut AC #15 mL 01/05/24 (3 mL) subcutaneous pen (Novolog FlexPen U-100 Insulin aspart) naloxone 4 mg/actuation nasal 4 mg intranasal Q2M PRN opioid 02/13/24 spray (Narcan) overdose #2 ea 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 04/12/24 #90 tab-caps blood sugar diagnostic (Blood #400 ea 04/26/24 Glucose Test strips) magnesium oxide 400 mg (241.3 mg 400 mg PO BID #180 tabs 04/26/24 magnesium) tablet omeprazole 40 mg capsule,delayed 40 mg PO DAILY #90 caps 05/20/24 release nystatin 100,000 unit/gram topical 1 applic topical BID PRN fungal 05/25/24 powder skin infection #30 grams albuterol sulfate 90 mcg/actuation 1 - 2 puff inhalation Q4-6H PRN ##1 05/31/24 aerosol inhaler fluticasone 250 mcg-salmeterol 50 1 inh inhalation BID #60 ea 05/31/24 mcg/dose blistr powdr for inhalation (Advair Diskus) gabapentin 300 mg capsule 300 mg PO HS PRN back pain #60 caps 05/31/24 glucagon 1 mg/0.2 mL subcutaneous 1 mg (0.2 mL) subcut ONCE #0.4 mL 05/31/24 auto-injector (Gvoke HypoPen 2-Pack) ipratropium 0.5 mg-albuterol 3 mg 3 ml inhalation QID PRN wheezing 05/31/24 (2.5 mg base)/3 mL nebulization #180 mL soln methocarbamol 500 mg tablet 1,000 mg (2 x 500 mg) PO HS PRN 05/31/24 muscle spasm #90 tabs ondansetron 8 mg disintegrating 8 mg PO BID PRN nausea and 05/31/24 tablet vomiting #60 tabs atorvastatin 80 mg tablet 80 mg PO DAILY #90 tabs 06/23/24 blood-glucose sensor (Dexcom G6 #3 ea 06/23/24 Sensor device) blood-glucose transmitter (Dexcom #3 ea 07/07/24 G6 Transmitter device) foam pillow #1 ea 07/07/24 metoprolol succinate 50 mg 50 mg PO DAILY recent ID #30 tabs 07/07/24 tablet,extended release 24 hr pregabalin 200 mg capsule 200 mg PO TID #90 caps 07/07/24 lorazepam 0.5 mg tablet See Rx Instructions PO DAILY PRN 07/08/24 dyspnea #14 tabs furosemide 40 mg tablet (Lasix) 40 mg PO DAILY #14 tabs 07/18/24 polyethylene glycol 3350 17 17 g PO DAILY PRN 08/02/24 gram/dose oral powder (Miralax) constipation/gastroparesis #238 grams albuterol sulfate 90 mcg/actuation 2 puff inhalation Q6H PRN 11/09/24 aerosol inhaler shortness of breath or wheezing #8.5 grams Allergies Allergy/AdvReac Type Severity Reaction Status Date / Time Penicillins Allergy Severe lip and Verified 01/10/25 08:28 facial swelling lamotrigine (From Lamictal) Allergy Unknown Skin Rash Verified 01/10/25 08:28 clindamycin AdvReac Severe Nausea & Verified 01/10/25 08:28 vomiting aspirin AdvReac Intermediate nausea/pain Verified 01/10/25 09:00 General Stated Complaint: Chest Pain CARLOS: 3 Review of Systems All systems reviewed & are unremarkable except as noted in HPI and below Cardiovascular Cardiovascular: Reports chest pain, Reports chest pain at rest, Reports pedal edema and Reports dyspnea Respiratory Respiratory: Reports dyspnea Gastrointestinal Gastrointestinal: Reports diarrhea and Reports nausea Exam Narrative Exam Narrative: Constitutional: Alert and oriented x3. Appears older than stated age. Obese body habitus. Head: Normocephalic, no trauma. Eyes: Pupils PERRL, Red reflex noted, EOM's intact. Eyelids symmetrical without lesions, discharge, or swelling. ENT: Bilateral TM's WNL, External ear normal to inspection, no mastoid TTP, swelling, or erythema, Nasal turbinates WNL, no nasal discharge. Posterior pharynx WNL, no exudate. Chest: RRR, Normal S1, S2, distal pulses intact. Resp: Lungs clear to auscultation bilaterally, no wheezes, rales, or rhonchi. Abdomen: Soft, non-distended, Normoactive bowel sounds all 4 quads. Musculoskeletal: Normal gait, Moves all 4 extremities without difficulty. Skin: No suspicious rashes or lesions. Capillary refill less than 2 sec. Neurologic: Cranial nerves II-XII intact. Alert and oriented x 3. Motor: No deficits noted. Sensory: Intact bilaterally all 4 extremities. Hematologic/Lymphatic: No ecchymosis, no lymphadenopathy. Course Vital Signs Vital signs: Pain Level 9 01/10/25 08:25 Medical Decision Making 44-year-old obese female with history of hepatitis C, insulin-dependent diabetes, hypertension, ID, Cirrhosis, high cholesterol, CHF, pancreatitis history of opioid use disorder who presents with chest pain since this morning which is intermittent and described as sharp. She did take 2 nitro prior to arrival at 5 this morning which helped. Associated with weakness in her left arm nausea and shortness of breath. Patient is a daily smoker, denies any drugs or alcohol, she reports that she took a nitro and the pain returned about an hour after that. She also endorses nausea and diarrhea this morning. EKG was reviewed by myself and Dr. Perry ER attending, old EKG available for review no significant change no ST elevation. Please see official result. Cardiac workup ordered including serial troponins, D-dimer and proBNP lipase magnesium and chest x-ray. 324 mg of aspirin chewable ordered. Patient does have aspirin listed on her allergy list however the reaction is nausea and pain and I feel that the benefits outweigh the risks. In short patient is a 44-year-old obese female with history of hepatitis C, insulin-dependent diabetes, hypertension high cholesterol, pancreatitis history of opioid use disorder who presents with chest pain since this morning which is intermittent and described as sharp. She did take 2 nitro prior to arrival at 5 this morning which helped. Associated with weakness in her left arm nausea and shortness of breath. Patient is a daily smoker, denies any drugs or alcohol, she reports that she took a nitro and the pain returned about an hour after that. She also endorses nausea and diarrhea this morning. Aspirin not given patient states her lips swell when she takes aspirin. Order canceled. Glucose came back at 537, troponin within normal limits, D-dimer slightly elevated at 567, sodium 130 potassium 4.6 chloride 94 BUN 22 creatinine 1.2 magnesium slightly low at 1.6. proBNP within normal limits at 147. Lipase within normal limits. CTA of chest ordered to rule out PE, liter of LR and will recheck sugar after the liter of fluid. He is negative for PE no evidence of aneurysm or dissection. 2 serial troponins within normal limits. I did discuss results with patient who verbalized understanding. She is requesting to eat. Recheck of her BGL shows that her blood sugars 460. She reports that it has been running high. I did instruct her to take insulin per her sliding scale when she gets home she verbalized understanding. She did state that she took 30 units of her normally scheduled insulin this morning. At this time patient will be discharged home with follow-up care with her PCP and strict return instructions to return if any worsening she verbalized understanding. This text was generated using [employer] dictation system, please disregard any oddities of phrase or misspellings. Medical Records Medical records reviewed: Yes I reviewed the patient's medical records. Imaging Data Radiologic Study: Imaging: CT Scan Radiologist's impression: COMPARISON: CT CT ABDOMEN PELVIS W from 06/14/2024 CR XR PORTABLE CHEST AP from 01/10/2025 FINDINGS: Tracheobronchial tree: Patent where visualized. No bronchiectasis. Pulmonary parenchyma: No consolidation or dominant measurable mass. No architectural distortion. Pulmonary Arteries: No evidence of filling defect to suggest pulmonary emboli. Mediastinum and Imani: No dominant adenopathy or fluid collection. The esophagus is unremarkable. Visualized thyroid gland: Unremarkable. Pleura: No effusion or pneumothorax. Heart: The heart is not dilated. No coronary artery calcifications are seen. No pericardial effusion. Aorta: Thoracic aorta non-dilated. No evidence of dissection. Upper abdomen: The areas of decreased attenuation in the liver are unchanged. Soft tissues: Unremarkable. Bones: Within normal limits for the patient's age. IMPRESSION: No evidence of pulmonary embolism, thoracic aortic dissection or aneurysm. Lab Data Lab results reviewed: Yes I reviewed the patient's lab results. Labs: Laboratory Tests Range/Units 01/10/25 01/10/25 01/10/25 08:53 10:00 11:31 WBC (4.4-10.8) 10^3/uL 11.87 H RBC (3.93-5.22) 10^6/uL 6.42 H Hgb (11.2-15.7) g/dL 14.2 Hct (36.0-46.0) % 47.2 H MCV (80-95) fL 74 L MCH (27.0-33.0) pg 22.1 L MCHC (32.0-36.0) % 30.1 L RDW (11.7-14.6) % 18.4 H Plt Count (130-400) 10^3/uL 271 MPV (8.0-11.0) fL 10.9 Immature Gran % % 0.3 Neutrophils % % 68.8 Lymphocytes % % 22.9 Monocytes % % 6.1 Eosinophils % % 1.2 Basophils % % 0.7 Nucleated RBC % (0.0-0.3) % 0.0 Absolute Neutrophils (1.2-6.7) 10^3/uL 8.17 H Absolute Lymphocytes (1.2-3.4) 10^3/uL 2.72 Absolute Monocytes (0.1-0.8) 10^3/uL 0.72 Absolute Eosinophils (0.0-0.7) 10^3/uL 0.14 Absolute Basophils (0.0-0.2) 10^3/uL 0.08 RBC Morphology See Below Microcytosis 2+ Stomatocytes 2+ PT (9.1-11.1) sec 9.6 INR (0.9-1.1) 1.0 APTT (20.6-30.2) sec 22.1 D-Dimer (<500) ng/mlFEU 567 H Sodium (136-145) mmol/L 130 L Potassium (3.5-5.1) mmol/L 4.6 Chloride (98-107) mmol/L 94 L Carbon Dioxide (21.0-32.0) mmol/L 30.4 Anion Gap (3-11) mmol/L 5.6 BUN (7-18) mg/dL 22 H Creatinine (0.55-1.02) mg/dL 1.2 H Est GFR (CKD-EPI 2020) (mL/min/1.73m2) 56.54 Glucose (74-106) mg/dL 537 H* Calcium (8.5-10.1) mg/dL 10.1 Magnesium (1.8-2.4) mg/dL 1.6 L Total Bilirubin (0.2-1.0) mg/dL 0.4 AST (15-37) U/L 16 ALT (14-59) U/L 21 Alkaline Phosphatase (46-116) U/L 199 H Troponin I (<or=51) ng/L 7 6 Cancelled NT-Pro-B Natriuret Pep (<300) pg/mL 147 Total Protein (6.4-8.2) g/dL 8.0 Albumin (3.4-5.0) g/dL 3.7 Lipase (<78) U/L 24 Quality:[facility] Health Related Social Needs: No Data to Display PFSH All Active Problems (Updated 01/10/25 @ 12:08 by Sandrita Gautam NP) Chest pain (Acute) Orthopnea (Acute) Edema of both lower legs (Acute) l>r .. chf? INACTIVITY? Myocardial infarction acute (Acute) Fatty infiltration of liver (Acute) Hx cirrhosis? 2' pancreatitis (05/2024)? Elevated troponin level not due myocardial infarction (Acute ~05/2024) ?type 2 ACS Acute postoperative abdominal pain (Acute) Diabetic ketoacidosis (Acute ~05/2024) Corneal abrasion (Acute) Obstructive sleep apnea of adult (Acute) [facility] 12/23/23 Muscle spasm of left lower extremity (Acute) Muscle spasm of back (Acute) Diabetic cataract of right eye (Acute) Ulcer of right foot limited to breakdown of skin (Acute 04/16/23) [facility] Ulcer of left foot, limited to breakdown of skin (Acute 04/16/23) [facility] Iron deficiency (Acute) 03/2023 iron studies indicating deficiency (NOT anemic) Migraine (Chronic) [facility] Chronic constipation (Chronic) [facility] Type 2 diabetes mellitus, with long-term current use of insulin (Chronic) With neuropathy & retinopathy (left, mild) Obesity (Chronic) Cirrhosis of liver (Chronic) [facility] Diabetic neuropathy (Acute) Asthma (Chronic) Tobacco use disorder (Chronic) Started smoking age 9 Poorly controlled type 2 diabetes mellitus (Chronic 03/23/18) Polypharmacy (Chronic 12/14/15) Mild nonproliferative diabetic retinopathy associated with type 2 diabetes mellitus (Chronic 01/22/16) Mental health disorder (Chronic) Pt reports being diagnosed with bipolar disorder, disassociative disorder, anxiety, & multiple personality disorder Hypomagnesemia (Chronic 09/30/16) Hyperlipidemia (Chronic 09/30/16) 10-year ASCVD risk = unable to calculate due to not being age 40+ however dx T2DM, so Rx for statin 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 Jimenez [facility] 2023: [facility] Depressive disorder (Chronic 10/31/14) ADMISSION SUICIDAL THOUGHTS 9/22/14 OD ATTEMPTS IN PAST Chronic nausea (Chronic) EGD 04/16/16 Dr. 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) Medical History DKA (diabetic ketoacidosis) Acute gallstone pancreatitis Acute pancreatitis Opioid use disorder MAT with methadone Chronic fatigue (07/19/15) Osteomyelitis Dyspareunia in female (07/09/17) Punctate keratitis of both eyes Ulcer of foot due to secondary diabetes Umbilical hernia (03/11/18) 03/17/2018: [facility] Premature surgical menopause JAD/BSO in late 20s, no HRT Hepatitis C 02/14/2016 labwork: undetectable RNA level Surgical History S/P cholecystectomy (06/12/24) Dr Reyes Status post total hysterectomy and bilateral salpingo-oophorectomy (~2006) noncancerous reasons Status post left foot surgery (10/2022) Left fourth metatarsal head excision for chronic ulcer, osteomyelitis ([facility]/Tamia Vidales, DPM) Status post section (~2003) EGD (04/16/16) Dr. Ferrer Family History Mother , 46yo due to kidney & liver failure due to alcohol Substance use disorder Alcohol use disorder Father , 62yo from ALS Substance use disorder Alcohol use disorder ALS (amyotrophic lateral sclerosis) Grandmother Colon cancer Paternal Paternal Uncle Cardiac arrest Substance use disorder Alcohol and Pain Medication Abuse Social History Smoking/Tobacco Use Status: Current every day Tobacco Type: cigarettes Smoking packs per day: 1 Smoking cigarettes per day: 20.0 Years smoked: 34 Smoking pack-years: 34.00 Tobacco: How many years used: 33 Quit status: considering quitting Smoking risk assessment performed?: Yes Alcohol Intake: never Drug use: Occasionally Substance use type: former substance user and marijuana Details: Pt. 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 Pets and animals: Yes (1 dog, 4 cats) Pets and animals: cat(s) and dog(s) Sexually active: Yes Do you think of yourself as: straight/heterosexual Current gender identity: female Other: 09/2022: pt reports she is engaged What is your relationship status?: How often do you talk on the phone with friends or family?: three or more times per week How often do you get together with friends or relatives?: once per week How often do you attend scientologist or church services?: decline to answer Do you belong to any clubs or organized social groups?: no Panel score (0-1 are the most socially isolated patients): 2 What type of physical activity do you participate in: none Duration: decline to answer Frequency: decline to answer Seatbelt use: always Helmet use: No (No reason to wear one) Drive 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
[2025-01-10 09:00] LABS: Abs Immature Grans 0.04 10^3/uL (0.0-0.06); Absolute Basophil Count 0.08 10^3/uL (0.0-0.2); Absolute Eosinophil Count 0.14 10^3/uL (0.0-0.7); Absolute Lymphocyte Count 2.72 10^3/uL (1.2-3.4); Absolute Monocyte Count 0.72 10^3/uL (0.1-0.8); Absolute Neutrophil Count 8.17 10^3/uL (1.2-6.7); Basophils % 0.7 %; Eosinophils % 1.2 %; HCT 47.2 % (36.0-46.0); HGB 14.2 g/dL (11.2-15.7); Immature Grans % 0.3 %; Lymphocytes % 22.9 %; MCH 22.1 pg (27.0-33.0); MCHC 30.1 % (32.0-36.0); MCV 74 fL (80-95); MPV 10.9 fL (8.0-11.0); Monocytes % 6.1 %; Neutrophils % 68.8 %; Platelet Count 271 10^3/uL (130-400); RBC 6.42 10^6/uL (3.93-5.22); RDW 18.4 % (11.7-14.6); RDW-SD 45.4 fL; WBC 11.87 10^3/uL (4.4-10.8)
[2025-01-10 09:17] LABS: PTT Activated 22.1 sec (20.6-30.2); Prothrombin Time 9.6 sec (9.1-11.1)
[2025-01-10 09:26] LABS: D-Dimer 567 ng/mlFEU (<500)
[2025-01-10 09:28] LABS: ALT 21 U/L (14-59); AST 16 U/L (15-37); Albumin 3.7 g/dL (3.4-5.0); Alkaline Phosphatase 199 U/L (46-116); Anion Gap 5.6 mmol/L (3-11); BUN 22 mg/dL (7-18); Bilirubin, Total 0.4 mg/dL (0.2-1.0); CO2 30.4 mmol/L (21.0-32.0); CREATININE 1.2 mg/dL (0.55-1.02); Calcium 10.1 mg/dL (8.5-10.1); Chloride 94 mmol/L (98-107); Estimated GFR 56.54 (mL/min/1.73m2); Lipase 24 U/L (<78); Magnesium 1.6 mg/dL (1.8-2.4); NT-proBNP 147 pg/mL (<300); Potassium 4.6 mmol/L (3.5-5.1); Sodium 130 mmol/L (136-145); Troponin I 7 ng/L (<or=51)
[2025-01-10 09:36] LABS: Glucose 537 mg/dL (74-106)
[2025-01-10 09:37] LABS: Diff Comment RBC Morph Reviewed; Microcytosis 2+; Stomatocytes 2+
[2025-01-10] MEDS: Lactated Ringers 1,000 ML 1000 ML IV (10:08)
[2025-01-10] MEDS: Magnesium Oxide 400 MG TAB PO (10:08)
[2025-01-10 10:33] LABS: Troponin I 6 ng/L (<or=51)
[2025-01-10] MEDS: Normal Saline - Diluent 50 ML VIAL IJ (11:11)
[2025-01-10] MEDS: Omnipaque 350 MG/ML 500 ML BTL-Imaging package 100 ML IJ (11:15)
--- NOTE | 2025-01-10 11:23 | DI.CT_ITS ---
Exam(s) CT CHEST PE CTA EXAM: CT CHEST PE CTA CLINICAL HISTORY: Chest pain, elevated dimer. TECHNIQUE: Imaging Protocol: Axial CT angiography was performed with multi-slice acquisition and mu lti-planar and/or 3D reconstructions. Lung Computer Aided Detection (CAD) was utilized. CONTRAST MATERIAL: Intravenous: Omnipaque 350 contrast volume:100 mL COMPARISON: CT CT ABDOMEN PELVIS W from 06/14/2024 CR XR PORTABLE CHEST AP from 01/10/2025 FINDINGS: Tracheobronchial tree: Patent where visualized. No bronchiectasis. Pulmonary parenchyma: No consolidation or dominant measurable mass. No architectural distortion. Pulmonary Arteries: No evidence of filling defect to suggest pulmonary emboli. Mediastinum and Imani: No dominant adenopathy or fluid collection. The esophagus is unremarkable. Visualized thyroid gland: Unremarkable. Pleura: No effusion or pneumothorax. Heart: The heart is not dilated. No coronary artery calcifications are seen. No pericardial effusion. Aorta: Thoracic aorta non-dilated. No evidence of dissection. Upper abdomen: The areas of decreased attenuation in the liver are unchanged. Soft tissues: Unremarkable. Bones: Within normal limits for the patient's age. IMPRESSION: No evidence of pulmonary embolism, thoracic aortic dissection or aneurysm. RADIATION DOSE DELIVERED: 156.63mGy.cm Total DLP DATA REPOSITORY: All CT scans at this facility are submitted to the National Radiology Data Registry (NRDR) Dose Index Registry (DIR) with the [employer] ([employer]). RADIATION OPTIMIZATION: All CT scans at this facility use at least one of these dose optimization te chniques: automated exposure control; mA and/or kV adjustment per patient size (includes targeted exa ms where dose is matched to clinical indication); or iterative reconstruction.
[2025-01-10 12:17] VITALS: BP 152/70; PULSE 74; RESP 18; O2SAT 95
== END 2025-01-10 12:19 | disposition home or self-care (01) ==
PROVIDERS: Emergency Provider Registered Nurse Emergency; PCP Internal Medicine
DX: R07.9 Chest pain, unspecified (principal); E11.9 Type 2 diabetes mellitus without complications; Z79.4 Long term (current) use of insulin; E66.9 Obesity, unspecified; Z86.79 Personal history of other diseases of the circulatory system
CPT/HCPCS: 99284; 99285; 36415; 36416; 82962; 71275; 80053; 83690; 93005; 96360; 71045; 83735; 83880; 84484; 85025; 85379; 85610; 85730; 93010

== ENCOUNTER 2025-01-16 12:21 | Inpatient (IN) | payer OTHER, SELFPAY ==
[2025-01-16 12:26] VITALS: BP 136/86; PULSE 72; RESP 18; TEMP 36.8; O2SAT 94
--- NOTE | 2025-01-16 12:45 | DI.RAD_ITS ---
Exam(s) XR TIB/FIB LT XR KNEE LT 3V AP,LAT,EMILY XR FEMUR LT EXAM: XR KNEE LT 3V AP,LAT,EMILY and XR femur LT and XR tib/fib LT CLINICAL HISTORY: Fall . TECHNIQUE: 2D digital imaging was performed of the left femur, knee, tibia and fibula. Nine images were obtained. AP, lateral and PA tunnel views were obtained. COMPARISON: CR ABD FLAT UPRIGHT PA CHEST from 07/20/2015 CR XR FOOT LT COMPLETE from 07/15/2022 CR,XR XR KNEE LT 3V AP,LAT,EMILY from 03/06/2024 FINDINGS: BONES: No acute fracture is present. No bony destructive lesion is seen. JOINTS: There is mild narrowing and spurring in the medial femoral tibial joint. There are small ost eophytes at the posterior patella. No joint effusion is seen. No loose body. SOFT TISSUE: Normal. IMPRESSION: No acute fracture or dislocation is seen in the left femur, left knee or tib/fib. DATA REPOSITORY: RADIATION DOSE DELIVERED:
--- NOTE | 2025-01-16 12:45 | DI.CT_ITS ---
Exam(s) CT HEAD WO EXAM: CT HEAD WO CLINICAL HISTORY: Fall, head injury . TECHNIQUE: Imaging Protocol: Axial computed tomography images with coronal and sagittal reformatted images were created and reviewed COMPARISON: CT CT HEAD WO from 11/02/2024 FINDINGS: Ventricles and Extra axial spaces: Normal in size and morphology for the patient's age. Hemorrhage: None. Cerebral parenchyma: There is no evidence of an acute territorial infarct. No mass effect is identif ied. Midline shift: None. Brainstem/Cerebellum: Normal. Calvarium: Normal. Visualized Paranasal sinuses/Mastoids: Clear. Soft Tissues: Unremarkable. IMPRESSION: No acute intracranial process. RADIATION DOSE DELIVERED: 930.91mGy.cm Total DLP DATA REPOSITORY: All CT scans at this facility are submitted to the National Radiology Data Registry (NRDR) Dose Index Registry (DIR) with the [employer] (A[employer]). RADIATION OPTIMIZATION: All CT scans at this facility use at least one of these dose optimization te chniques: automated exposure control; mA and/or kV adjustment per patient size (includes targeted exa ms where dose is matched to clinical indication); or iterative reconstruction.
--- NOTE | 2025-01-16 12:45 | DI.RAD_ITS ---
Exam(s) XR FOOT LT COMPLETE EXAM: XR FOOT LT COMPLETE CLINICAL HISTORY: Fall, . TECHNIQUE: 2D digital imaging was performed of the left foot. Three images were obtained. AP, obli que and lateral views were obtained. COMPARISON: CR XR FOOT LT COMPLETE from 07/15/2022 CR XR FOOT RT COMPLETE from 08/25/2024 FINDINGS: BONES: No acute fracture is present. No bony destructive lesion is seen. Since the prior examination there has been resection of the head of the 4th metatarsal. There is also an old healed fracture def ormity involving the distal 5th metatarsal. JOINTS: No dislocation present. Mild degenerative changes are seen in the foot. SOFT TISSUE: There is soft tissue swelling of the foot. No radiopaque foreign bodies are seen. IMPRESSION: No acute fracture or dislocation. DATA REPOSITORY: RADIATION DOSE DELIVERED:
--- NOTE | 2025-01-16 13:01 | W.ED.GENAD ---
Discharge Plan Disposition Patient Disposition: Admit to [facility] Condition: Stable Discharge Details Clinical Impression: Cellulitis of left lower extremity, Diabetic foot ulcer Primary Care Provider: Kevin Lehman ED Provider: Sandrita Gautam Home Meds and New Rx's Prescriptions: No Action albuterol sulfate 90 mcg/actuation HFA aerosol inhaler 1 - 2 puff Inhalation Q4-6H PRN Qty: 1 1RF Rx Instructions: DISPENSE ALBUTEROL INHALER BRAND COVERED BY INSURANCE metoclopramide HCl 10 mg tablet 10 mg PO TID PRN Rx Instructions: administer 30 minutes before meals ondansetron 8 mg tablet,disintegrating 8 mg PO BID PRN (Reason: nausea and vomiting) Qty: 60 11RF gabapentin 300 mg capsule 300 mg PO HS PRN (Reason: back pain) Qty: 60 0RF Gvoke HypoPen 2-Pack 1 mg/0.2 mL auto-injector 1 mg subcut ONCE Qty: 0.4 1RF Rx Instructions: HYPOGLYCEMIA; as a single dose; may repeat once after 15 minutes if no response methocarbamol 500 mg tablet 1,000 mg PO HS PRN (Reason: muscle spasm) Qty: 90 0RF Rx Instructions: Use lowest effective dose for shortest duration for muscle spasm ipratropium-albuterol 0.5 mg-3 mg(2.5 mg base)/3 mL solution for nebulization 3 ml inhalation QID PRN (Reason: wheezing) Qty: 180 1RF Rx Instructions: During asthma exacerbation, may use preventatively TID, titrating down to QID PRN as wheeze & SOB improve. fluticasone propion-salmeterol [Advair Diskus] 250-50 mcg/dose blister with device 1 inh inhalation BID Qty: 60 1RF Rx Instructions: Please use this during asthma exacerbations, wean off as shortness of breath & wheeze improve. atorvastatin 80 mg tablet 80 mg PO DAILY Qty: 90 3RF (DME) Dexcom G6 Sensor Device See Rx Instructions .ROUTE .COMPLEX Qty: 3 6RF Dose Instruction: USE DIRECTED Rx Instructions: USE DIRECTED methadone [Methadone Intensol] 10 mg/mL concentrate 77 mg PO DAILY albuterol sulfate 90 mcg/actuation HFA aerosol inhaler 2 puff inhalation Q6H PRN (Reason: shortness of breath or wheezing) Qty: 8.5 0RF naloxone [Narcan] 4 mg/actuation spray,non-aerosol 4 mg intranasal Q2M PRN (Reason: opioid overdose) Qty: 2 0RF Rx Instructions: spray 1 dose into ONE nostril; alternate nostrils w each dose until help arrives (DME) Dexcom G6 Transmitter Device See Rx Instructions .Route Qty: 3 3RF Rx Instructions: As directed pregabalin 200 mg capsule 200 mg PO TID Qty: 90 3RF metoprolol succinate 50 mg tablet extended release 24 hr 50 mg PO DAILY Qty: 30 1RF Rx Instructions: Trial lower dose (50+25=75mg) due to fatigue/SOB (on 100mg) (DME) foam pillow triangular See Rx Instructions .Route .MEDSUPPLY Qty: 1 0RF Rx Instructions: Trial sleeping & resting (legs need elevation) @ 30-40' angle to alleviate SOB/Panic acetaminophen 500 mg tablet 500 - 1,000 mg PO Q8H MDD 3000 mg PRN (Reason: fever or pain) Qty: 180 0RF Rx Instructions: 1 month supply (DME) pen needle, diabetic [BD Ultra-Fine Yamini Pen Needle] 32 gauge x 5/32 needle See Rx Instructions .ROUTE .COMPLEX Qty: 100 0RF Dose Instruction: USE TO ADMINISTER INSULIN ONCE DAILY Rx Instructions: USE TO ADMINISTER INSULIN ONCE DAILY (DME) blood-glucose meter Misc See Rx Instructions .Route Qty: 1 0RF Rx Instructions: One Touch meter (DME) lancets Misc See Rx Instructions .ROUTE .MEDSUPPLY Qty: 400 3RF Rx Instructions: As directed to check blood glucose four times daily. On insulin. Dispense one touch ultra insulin aspart U-100 [Novolog FlexPen U-100 Insulin] 100 unit/mL (3 mL) insulin pen 15 unit subcut AC Qty: 15 3RF Rx Instructions: 10-15 units sliding scale before meals valacyclovir 500 mg tablet 500 mg PO DAILY Qty: 90 3RF (DME) Blood Glucose Test Strip See Rx Instructions .MEDSUPPLY Qty: 400 3RF Rx Instructions: As directed to check blood glucose four times daily. On insulin. Dispense one touch ultra magnesium oxide 400 mg (241.3 mg magnesium) tablet 400 mg PO BID Qty: 180 0RF omeprazole 40 mg capsule,delayed release(DR/EC) 40 mg PO DAILY Qty: 90 3RF nystatin 100,000 unit/gram powder 1 applic Topical BID PRN (Reason: fungal skin infection) Qty: 30 3RF Rx Instructions: Apply powder to affected area under R breast twice daily lorazepam 0.5 mg tablet See Rx Instructions PO DAILY PRN (Reason: dyspnea) Qty: 14 0RF Rx Instructions: Short term increase to BID PRN panic or shortness of breath orally daily PRN; (FYI to Prescriber @ [facility]) insulin degludec [Tresiba FlexTouch U-100] 100 unit/mL (3 mL) insulin pen 140 unit subcut DAILY Patient Comments: takes more than rx'd due to blood sugars being high Rx Instructions: 07/13/2024 PER [facility] decrease to 30 units losartan 25 mg tablet 25 mg PO DAILY spironolactone 25 mg tablet 25 mg PO DAILY polyethylene glycol 3350 [Miralax] 17 gram/dose powder 17 g PO DAILY PRN (Reason: constipation/gastroparesis) Qty: 238 0RF clonidine HCl 0.2 mg tablet 0.2 mg PO HS Patient Comments: TAKE 1 TABLET BY MOUTH EVERY NIGHT AT BEDTIME mirtazapine 15 mg tablet 15 mg PO HS Ajovy Autoinjector 225 mg/1.5 mL auto-injector 225 mg subcut QMONTH Botox 100 unit recon soln 300 unit IM ONCE Rx Instructions: divided among affected muscles clonidine HCl 0.1 mg tablet 0.1 mg PO BID Patient Comments: TAKE 1 TABLET BY MOUTH DURING THE DAY NEEDED AND 1 TABLET AT BEDTIME FOR ANXIETY lurasidone 80 mg tablet 80 mg PO DAILY Patient Comments: TAKE ONE TABLET BY MOUTH EVERY DAY WITH AT LEAST 350 CALORIES metoprolol succinate 25 mg tablet extended release 24 hr 100 mg PO DAILY Patient Comments: ran out 2 days ago furosemide [Lasix] 40 mg tablet 40 mg PO DAILY Qty: 14 0RF HPI General Mode of arrival: wheelchair. Date/Time Provider Initiated Documentation: 01/16/25 12:34. Limitations to Documentation: no limitations. Information obtained by: patient, RN notes reviewed and old records reviewed. HPI Narrative: 44-year-old female presents to the ER with a chief complaint of fall after rolling her ankle on night in the middle night. She reports that she fell and hit her head on the door frame. Now she states that she has had some increased redness and pain up into her anterior left thigh. She does have a wound to her fourth digit which she states was opened back up after the fall. Does have purulent drainage noted. No obvious deformity but it is warm and erythemic to the touch. She also endorses some dizziness and headache. She is an insulin-dependent diabetic, hyperlipidemia high cholesterol, history of DKA pancreatitis osteomyelitis hepatitis C. She is a daily smoker. Of note she was seen here approximately 6 days ago for some chest pain had negative cardiac workup. Related Data Home Medications ?Medication ?Instructions ?Recorded ?Confirmed acetaminophen 500 mg tablet 500 - 1,000 mg (1 - 2 x 500 mg) PO 09/24/19 01/16/25 Q8H PRN fever or pain #180 tab-caps pen needle, diabetic 32 gauge x #100 ea 06/30/23 01/16/25 (BD Ultra-Fine Yamini Pen Needle) blood-glucose meter #1 ea 08/28/23 01/16/25 lancets #400 ea 08/28/23 01/16/25 clonidine HCl 0.2 mg tablet 0.2 mg PO HS 11/21/23 01/16/25 insulin aspart U-100 100 unit/mL 15 unit (0.15 mL) subcut AC #15 mL 01/05/24 01/16/25 (3 mL) subcutaneous pen (Novolog FlexPen U-100 Insulin aspart) naloxone 4 mg/actuation nasal 4 mg intranasal Q2M PRN opioid 02/13/24 01/16/25 spray (Narcan) overdose #2 ea 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 04/12/24 01/16/25 #90 tab-caps blood sugar diagnostic (Blood #400 ea 04/26/24 01/16/25 Glucose Test strips) magnesium oxide 400 mg (241.3 mg 400 mg PO BID #180 tabs 04/26/24 01/16/25 magnesium) tablet mirtazapine 15 mg tablet 15 mg PO HS 05/03/24 01/16/25 omeprazole 40 mg capsule,delayed 40 mg PO DAILY #90 caps 05/20/24 01/16/25 release nystatin 100,000 unit/gram topical 1 applic topical BID PRN fungal 05/25/24 01/16/25 powder skin infection #30 grams albuterol sulfate 90 mcg/actuation 1 - 2 puff inhalation Q4-6H PRN ##1 05/31/24 01/16/25 aerosol inhaler fluticasone 250 mcg-salmeterol 50 1 inh inhalation BID #60 ea 05/31/24 01/16/25 mcg/dose blistr powdr for inhalation (Advair Diskus) gabapentin 300 mg capsule 300 mg PO HS PRN back pain #60 caps 05/31/24 01/16/25 glucagon 1 mg/0.2 mL subcutaneous 1 mg (0.2 mL) subcut ONCE #0.4 mL 05/31/24 01/16/25 auto-injector (Gvoke HypoPen 2-Pack) ipratropium 0.5 mg-albuterol 3 mg 3 ml inhalation QID PRN wheezing 05/31/24 01/16/25 (2.5 mg base)/3 mL nebulization #180 mL soln methocarbamol 500 mg tablet 1,000 mg (2 x 500 mg) PO HS PRN 05/31/24 01/16/25 muscle spasm #90 tabs metoclopramide HCl 10 mg tablet 10 mg PO TID PRN 05/31/24 01/16/25 ondansetron 8 mg disintegrating 8 mg PO BID PRN nausea and 05/31/24 01/16/25 tablet vomiting #60 tabs fremanezumab-vfrm 225 mg/1.5 mL 225 mg subcut QMONTH 06/07/24 01/16/25 subcutaneous auto-injector (Ajovy) onabotulinumtoxinA 100 unit 300 unit IM ONCE 06/07/24 01/16/25 solution for injection (Botox) lurasidone 80 mg tablet 80 mg PO DAILY 06/08/24 01/16/25 atorvastatin 80 mg tablet 80 mg PO DAILY #90 tabs 06/23/24 01/16/25 blood-glucose sensor (Dexcom G6 #3 ea 06/23/24 01/16/25 Sensor device) methadone 10 mg/mL oral 77 mg PO DAILY 06/23/24 01/16/25 concentrate (Methadone Intensol) blood-glucose transmitter (Dexcom #3 ea 07/07/24 01/16/25 G6 Transmitter device) foam pillow #1 ea 07/07/24 01/16/25 metoprolol succinate 50 mg 50 mg PO DAILY recent [place] #30 tabs 07/07/24 01/16/25 tablet,extended release 24 hr pregabalin 200 mg capsule 200 mg PO TID #90 caps 07/07/24 01/16/25 lorazepam 0.5 mg tablet See Rx Instructions PO DAILY PRN 07/08/24 01/16/25 dyspnea #14 tabs insulin degludec 100 unit/mL (3 140 unit subcut DAILY 07/13/24 01/16/25 mL) subcutaneous pen (Tresiba FlexTouch U-100 insulin) losartan 25 mg tablet 25 mg PO DAILY 07/14/24 01/16/25 spironolactone 25 mg tablet 25 mg PO DAILY 07/14/24 01/16/25 furosemide 40 mg tablet (Lasix) 40 mg PO DAILY #14 tabs 07/18/24 01/16/25 metoprolol succinate 25 mg 100 mg PO DAILY 07/18/24 01/16/25 tablet,extended release 24 hr polyethylene glycol 3350 17 17 g PO DAILY PRN 08/02/24 01/16/25 gram/dose oral powder (Miralax) constipation/gastroparesis #238 grams clonidine HCl 0.1 mg tablet 0.1 mg PO BID 09/19/24 01/16/25 albuterol sulfate 90 mcg/actuation 2 puff inhalation Q6H PRN 11/09/24 01/16/25 aerosol inhaler shortness of breath or wheezing #8.5 grams Previous Rx's ?Medication ?Instructions ?Recorded acetaminophen 500 mg tablet 500 - 1,000 mg (1 - 2 x 500 mg) PO 09/24/19 Q8H PRN fever or pain #180 tab-caps pen needle, diabetic 32 gauge x #100 ea 06/30/23 (BD Ultra-Fine Yamini Pen Needle) blood-glucose meter #1 ea 08/28/23 lancets #400 ea 08/28/23 insulin aspart U-100 100 unit/mL 15 unit (0.15 mL) subcut AC #15 mL 01/05/24 (3 mL) subcutaneous pen (Novolog FlexPen U-100 Insulin aspart) naloxone 4 mg/actuation nasal 4 mg intranasal Q2M PRN opioid 02/13/24 spray (Narcan) overdose #2 ea 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 04/12/24 #90 tab-caps blood sugar diagnostic (Blood #400 ea 04/26/24 Glucose Test strips) magnesium oxide 400 mg (241.3 mg 400 mg PO BID #180 tabs 04/26/24 magnesium) tablet omeprazole 40 mg capsule,delayed 40 mg PO DAILY #90 caps 05/20/24 release nystatin 100,000 unit/gram topical 1 applic topical BID PRN fungal 05/25/24 powder skin infection #30 grams albuterol sulfate 90 mcg/actuation 1 - 2 puff inhalation Q4-6H PRN ##1 05/31/24 aerosol inhaler fluticasone 250 mcg-salmeterol 50 1 inh inhalation BID #60 ea 05/31/24 mcg/dose blistr powdr for inhalation (Advair Diskus) gabapentin 300 mg capsule 300 mg PO HS PRN back pain #60 caps 05/31/24 glucagon 1 mg/0.2 mL subcutaneous 1 mg (0.2 mL) subcut ONCE #0.4 mL 05/31/24 auto-injector (GvLocal Magnet HypoPen 2-Pack) ipratropium 0.5 mg-albuterol 3 mg 3 ml inhalation QID PRN wheezing 05/31/24 (2.5 mg base)/3 mL nebulization #180 mL soln methocarbamol 500 mg tablet 1,000 mg (2 x 500 mg) PO HS PRN 05/31/24 muscle spasm #90 tabs ondansetron 8 mg disintegrating 8 mg PO BID PRN nausea and 05/31/24 tablet vomiting #60 tabs atorvastatin 80 mg tablet 80 mg PO DAILY #90 tabs 06/23/24 blood-glucose sensor (Dexcom G6 #3 ea 06/23/24 Sensor device) blood-glucose transmitter (Dexcom #3 ea 07/07/24 G6 Transmitter device) foam pillow #1 ea 07/07/24 metoprolol succinate 50 mg 50 mg PO DAILY recent [place] #30 tabs 07/07/24 tablet,extended release 24 hr pregabalin 200 mg capsule 200 mg PO TID #90 caps 07/07/24 lorazepam 0.5 mg tablet See Rx Instructions PO DAILY PRN 07/08/24 dyspnea #14 tabs furosemide 40 mg tablet (Lasix) 40 mg PO DAILY #14 tabs 07/18/24 polyethylene glycol 3350 17 17 g PO DAILY PRN 08/02/24 gram/dose oral powder (Miralax) constipation/gastroparesis #238 grams albuterol sulfate 90 mcg/actuation 2 puff inhalation Q6H PRN 11/09/24 aerosol inhaler shortness of breath or wheezing #8.5 grams Allergies Allergy/AdvReac Type Severity Reaction Status Date / Time Penicillins Allergy Severe lip and Verified 01/16/25 12:31 facial swelling lamotrigine (From Lamictal) Allergy Unknown Skin Rash Verified 01/16/25 12:31 clindamycin AdvReac Severe Nausea & Verified 01/16/25 12:31 vomiting aspirin AdvReac Intermediate nausea/pain Verified 01/16/25 12:31 General Stated Complaint: Fall/Non TraumaCriteria CARLOS: 3 Review of Systems Musculoskeletal Musculoskeletal: Reports as per HPI, Reports arthralgias and Reports joint swelling Integumentary/Breasts Skin/Breast: Reports erythema, Reports skin pain, Reports skin swelling and Reports sores Exam Narrative Exam Narrative: General: Well Developed, Awake and Alert, conversant. Appears older than age. Skin: Warm and Dry HEENT: Head: No palpable deformities, Normocephalic Eyes: Pupils PERRLA, EOM's intact. No periorbital eccymosis or step off Ears: Canal patent. Tympanic membranes are clear . No arnold's sign, no hemptympanum. Nose/Face: Atraumatic. Facial bones nontender to palpation and stable with manipulation. Mouth/Throat: No intraoral trauma. Teeth and mandible are intact. Neck: No midline tenderness, no step off, no deformity to palpation of C-spine. Trachea midline. Chest: No surface trauma. Nontender without crepitus or deformity. Lungs clear to ausculatation bilaterally. Heart: RRR, no rubs, murmurs or gallop. Abdomen: No abrasions, ecchymosis, or surface trauma. Nondistended. Nontender to palpation no guarding, rebound, or rigidity. Pelvis: Nontender to palpation and stable to compression. Femoral pulses strong and equal Extremities: Sensation intact. Peripheral pulses intact and equal. She has a wound to her fourth digit, erythema extending up to her left anterior thigh which is warm and tender to the touch. She has multiple pick de dios and scars on her feet and hands. Neuro: ANO x4, GCS 15, cranial nerves II through XII intact. Motor and sensory exam nonfocal. Reflexes are symmetric. Extrem Upper/lower leg/hip images: 1. Redness extending up into the distal anterior left thigh that is tender and warm to touch. Ankle/foot/toe images: 1. Approximately 5 mm in diameter around wound with purulent drainage noted. Appears chronic Course Vital Signs Vital signs: Vital Signs Temperature 36.8 C 01/16/25 12:26 Pulse 72 01/16/25 12:26 Respiratory Rate 18 01/16/25 12:26 Blood Pressure 136/86 01/16/25 12:26 Pulse Oximetry 94 01/16/25 12:26 Temperature 36.8 C 01/16/25 12:26 Pulse 72 01/16/25 12:26 Respiratory Rate 18 01/16/25 12:26 Blood Pressure 136/86 01/16/25 12:26 Pulse Oximetry 94 01/16/25 12:26 Pain Level 9 01/16/25 12:26 Medical Decision Making 44-year-old female presents to the ER with a chief complaint of fall after rolling her ankle on night in the middle night. She reports that she fell and hit her head on the door frame. Now she states that she has had some increased redness and pain up into her anterior left thigh. She does have a wound to her fourth digit which she states was opened back up after the fall. Does have purulent drainage noted. No obvious deformity but it is warm and erythemic to the touch. She also endorses some dizziness and headache. She is an insulin-dependent diabetic, hyperlipidemia high cholesterol, history of DKA pancreatitis osteomyelitis hepatitis C. She is a daily smoker. Of note she was seen here approximately 6 days ago for some chest pain had negative cardiac workup. Workup ordered including x-rays of her leg, foot and ankle and head CT. I am concerned for possible cellulitis as the red numbness is warm and tender to the touch. She is also a insulin-dependent diabetic. Lactate is 2.3, liter of normal saline ordered, [address] head is within normal limits x-rays are also negative for any acute fracture. Patient given 100 mg doxycycline IV piggyback. Glucose is critically high at 627 however patient states that her blood sugar is always high and she does state that she has been taking her insulin as directed. Will give a liter of normal saline and recheck after infusion. I am suspecting possible admission due to my high suspicion of cellulitis. She does have this diabetic wound on her toe. Patient given 50 mg of Toradol IV as she reports that she has had this in the past. Discussed possible plan of care with patient who is in agreement with the plan and is willing to be admitted. Will contact hospitalist to discuss possible admission. Spoke with Dr. Weathers regarding patient case and details, he agrees to accept patient for admission. This text was generated using [employer] system, please disregard any oddities of phrase or misspellings. Medical Records Medical records reviewed: Yes I reviewed the patient's medical records. Lab Data Lab results reviewed: Yes I reviewed the patient's lab results. Labs: Laboratory Tests Range/Units 01/16/25 13:12 WBC (4.4-10.8) 10^3/uL 15.38 H RBC (3.93-5.22) 10^6/uL 5.87 H Hgb (11.2-15.7) g/dL 13.2 Hct (36.0-46.0) % 42.9 MCV (80-95) fL 73 L MCH (27.0-33.0) pg 22.5 L MCHC (32.0-36.0) % 30.8 L RDW (11.7-14.6) % 18.6 H Plt Count (130-400) 10^3/uL 293 MPV (8.0-11.0) fL Immature Gran % % 0.6 Neutrophils % % 77.8 Lymphocytes % % 13.5 Monocytes % % 6.9 Eosinophils % % 0.8 Basophils % % 0.4 Nucleated RBC % (0.0-0.3) % 0.0 Absolute Neutrophils (1.2-6.7) 10^3/uL 11.97 H Absolute Lymphocytes (1.2-3.4) 10^3/uL 2.08 Absolute Monocytes (0.1-0.8) 10^3/uL 1.06 H Absolute Eosinophils (0.0-0.7) 10^3/uL 0.12 Absolute Basophils (0.0-0.2) 10^3/uL 0.06 RBC Morphology See Below Hypochromasia 1+ Anisocytosis 1+ Microcytosis 2+ VBG Lactate (<or=2.0) mmol/L 2.3 H* Sodium (136-145) mmol/L 129 L Potassium (3.5-5.1) mmol/L 4.5 Chloride (98-107) mmol/L 93 L Carbon Dioxide (21.0-32.0) mmol/L 28.4 Anion Gap (3-11) mmol/L 7.6 BUN (7-18) mg/dL 22 H Creatinine (0.55-1.02) mg/dL 1.3 H Est GFR (CKD-EPI 2020) (mL/min/1.73m2) 51.36 Glucose (74-106) mg/dL 627 H* Calcium (8.5-10.1) mg/dL 9.5 Total Bilirubin (0.2-1.0) mg/dL 0.4 AST (15-37) U/L 15 ALT (14-59) U/L 17 Alkaline Phosphatase (46-116) U/L 198 H Total Protein (6.4-8.2) g/dL 7.5 Albumin (3.4-5.0) g/dL 3.0 L Procalcitonin ng/mL 0.39 Quality:[facility] Health Related Social Needs: No Data to Display PFSH All Active Problems (Updated 01/16/25 @ 14:54 by Sandrita Gautam NP) Diabetic foot ulcer (Acute) Cellulitis of left lower extremity (Acute) Chest pain (Acute) Orthopnea (Acute) Edema of both lower legs (Acute) l>r .. chf? INACTIVITY? Myocardial infarction acute (Acute) Fatty infiltration of liver (Acute) Hx cirrhosis? 2' pancreatitis (05/2024)? Elevated troponin level not due myocardial infarction (Acute ~05/2024) ?type 2 ACS Acute postoperative abdominal pain (Acute) Diabetic ketoacidosis (Acute ~05/2024) Corneal abrasion (Acute) Obstructive sleep apnea of adult (Acute) [facility] 12/23/23 Muscle spasm of left lower extremity (Acute) Muscle spasm of back (Acute) Diabetic cataract of right eye (Acute) Ulcer of right foot limited to breakdown of skin (Acute 04/16/23) [facility] Ulcer of left foot, limited to breakdown of skin (Acute 04/16/23) [facility] Podiatry Iron deficiency (Acute) 03/2023 iron studies indicating deficiency (NOT anemic) Migraine (Chronic) [facility] Neuro Chronic constipation (Chronic) [facility] GI Type 2 diabetes mellitus, with long-term current use of insulin (Chronic) With neuropathy & retinopathy (left, mild) Obesity (Chronic) Cirrhosis of liver (Chronic) [facility] GI Diabetic neuropathy (Acute) Asthma (Chronic) Tobacco use disorder (Chronic) Started smoking age 9 Poorly controlled type 2 diabetes mellitus (Chronic 03/23/18) Polypharmacy (Chronic 12/14/15) Mild nonproliferative diabetic retinopathy associated with type 2 diabetes mellitus (Chronic 01/22/16) Mental health disorder (Chronic) Pt reports being diagnosed with bipolar disorder, disassociative disorder, anxiety, & multiple personality disorder Hypomagnesemia (Chronic 09/30/16) Hyperlipidemia (Chronic 09/30/16) 10-year ASCVD risk = unable to calculate due to not being age 40+ however dx T2DM, so Rx for statin 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 Jimeenz [facility] 2023: [facility] GI Depressive disorder (Chronic 10/31/14) ADMISSION SUICIDAL THOUGHTS 06/13/14 OD ATTEMPTS IN PAST Chronic nausea (Chronic) EGD 04/16/16 Dr. 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) Medical History DKA (diabetic ketoacidosis) Acute gallstone pancreatitis Acute pancreatitis Opioid use disorder MAT with methadone Chronic fatigue (07/19/15) Osteomyelitis Dyspareunia in female (07/09/17) Punctate keratitis of both eyes Ulcer of foot due to secondary diabetes Umbilical hernia (03/11/18) 03/17/2018: [facility] GI Premature surgical menopause JAD/BSO in late 20s, no HRT Hepatitis C 02/14/2016 labwork: undetectable RNA level Surgical History S/P cholecystectomy (06/12/24) Dr Reyes Status post total hysterectomy and bilateral salpingo-oophorectomy (~2006) noncancerous reasons Status post left foot surgery (10/2022) Left fourth metatarsal head excision for chronic ulcer, osteomyelitis ([facility]/Tamia Vidales, DPM) Status post section (~2003) EGD (04/16/16) Dr. Ferrer Family History Mother , 46yo due to kidney & liver failure due to alcohol Substance use disorder Alcohol use disorder Father , 62yo from ALS Substance use disorder Alcohol use disorder ALS (amyotrophic lateral sclerosis) Grandmother Colon cancer Paternal Paternal Uncle Cardiac arrest Substance use disorder Alcohol and Pain Medication Abuse Social History Smoking/Tobacco Use Status: Current every day Tobacco Type: cigarettes Smoking packs per day: 1 Smoking cigarettes per day: 20.0 Years smoked: 34 Smoking pack-years: 34.00 Tobacco: How many years used: 33 Quit status: considering quitting Smoking risk assessment performed?: Yes Alcohol Intake: never Drug use: Occasionally Substance use type: former substance user and marijuana Details: Pt. 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 Pets and animals: Yes (1 dog, 4 cats) Pets and animals: cat(s) and dog(s) Sexually active: Yes Do you think of yourself as: straight/heterosexual Current gender identity: female Other: 09/2022: pt reports she is engaged What is your relationship status?: How often do you talk on the phone with friends or family?: three or more times per week How often do you get together with friends or relatives?: once per week How often do you attend nondenominational or tenriism services?: decline to answer Do you belong to any clubs or organized social groups?: no Panel score (0-1 are the most socially isolated patients): 2 What type of physical activity do you participate in: none Duration: decline to answer Frequency: decline to answer Seatbelt use: always Helmet use: No (No reason to wear one) Drive 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
[2025-01-16 13:19] LABS: Lactate 2.3 mmol/L (<or=2.0)
[2025-01-16 13:20] LABS: Abs Immature Grans 0.09 10^3/uL (0.0-0.06); Absolute Basophil Count 0.06 10^3/uL (0.0-0.2); Absolute Monocyte Count 1.06 10^3/uL (0.1-0.8); Absolute Neutrophil Count 11.97 10^3/uL (1.2-6.7); Basophils % 0.4 %; Eosinophils % 0.8 %; HCT 42.9 % (36.0-46.0); HGB 13.2 g/dL (11.2-15.7); Immature Grans % 0.6 %; Lymphocytes % 13.5 %; MCH 22.5 pg (27.0-33.0); MCHC 30.8 % (32.0-36.0); MCV 73 fL (80-95); Monocytes % 6.9 %; Neutrophils % 77.8 %; Platelet Count 293 10^3/uL (130-400); RBC 5.87 10^6/uL (3.93-5.22); RDW 18.6 % (11.7-14.6); RDW-SD 46.1 fL; WBC 15.38 10^3/uL (4.4-10.8)
[2025-01-16 13:37] LABS: Absolute Eosinophil Count 0.12 10^3/uL (0.0-0.7); Absolute Lymphocyte Count 2.08 10^3/uL (1.2-3.4); Diff Comment Diff Reviewed
[2025-01-16 13:38] LABS: Anisocytosis 1+; Hypochromasia 1+; Microcytosis 2+
[2025-01-16 13:40] LABS: ALT 17 U/L (14-59); AST 15 U/L (15-37); Alkaline Phosphatase 198 U/L (46-116); Anion Gap 7.6 mmol/L (3-11); BUN 22 mg/dL (7-18); Bilirubin, Total 0.4 mg/dL (0.2-1.0); CO2 28.4 mmol/L (21.0-32.0); CREATININE 1.3 mg/dL (0.55-1.02); Calcium 9.5 mg/dL (8.5-10.1); Chloride 93 mmol/L (98-107); Estimated GFR 51.36 (mL/min/1.73m2); Potassium 4.5 mmol/L (3.5-5.1); Sodium 129 mmol/L (136-145); Total Protein 7.5 g/dL (6.4-8.2)
[2025-01-16] MEDS: Normal Saline 1,000 ML 1000 ML IV (13:48)
[2025-01-16 13:49] LABS: Glucose 627 mg/dL (74-106)
[2025-01-16 14:09] LABS: Procalcitonin 0.39 ng/mL
[2025-01-16] MEDS: Ketorolac 15 MG/ML VIAL IVP (14:16)
[2025-01-16] MEDS: Ondansetron 4 MG/2 ML VIAL IVP (14:36)
[2025-01-16] MEDS: DOXYCYCLINE 100 MG in Normal Saline 100 ML IVPB (14:37)
--- NOTE | 2025-01-16 15:47 | HPE_ITS ---
Date of service: 01/16/25 Time of Service: 15:47 Assessment and Plan Assessment and plan (1) Sepsis without septic shock: Status: Acute Assessment and plan: meets criteria with elevated white count, lactic 2.3 and source cellulitis given doxycycline in the ED, will add cefazolin trend lactic acid, blood cultures pending hemodynamically stable. (2) Cellulitis of left lower extremity: Status: Acute Assessment and plan: area marked no evidence of abscess, no fluctuant area elevate extremity follow inflammatory markers continue doxy and add cefazolin (3) Type 2 diabetes mellitus, with long-term current use of insulin: Status: Chronic Assessment and plan: poorly controlled, with A1C 13 anticipate hyperglycemia in setting of infection also diabetic diet sliding scale coverage AC/HS (4) Depressive disorder: Status: Chronic Assessment and plan: continue home meds (5) Hyperlipidemia: Status: Chronic (6) Obstructive sleep apnea of adult: Status: Acute History of Present Illness Narrative: left lower extremity redness Review of Systems All systems reviewed & are unremarkable except as noted in HPI and below PFSH All Active Problems (Updated 01/17/25 @ 10:42 by Halima Clay NP) Sepsis without septic shock (Acute) Diabetic foot ulcer (Acute) Cellulitis of left lower extremity (Acute) Chest pain (Acute) Orthopnea (Acute) Edema of both lower legs (Acute) l>r .. chf? INACTIVITY? Myocardial infarction acute (Acute) Fatty infiltration of liver (Acute) Hx cirrhosis? 2' pancreatitis (05/2024)? Elevated troponin level not due myocardial infarction (Acute ~05/2024) ?type 2 ACS Acute postoperative abdominal pain (Acute) Diabetic ketoacidosis (Acute ~05/2024) Corneal abrasion (Acute) Obstructive sleep apnea of adult (Acute) [facility] 12/23/23 Muscle spasm of left lower extremity (Acute) Muscle spasm of back (Acute) Diabetic cataract of right eye (Acute) Ulcer of right foot limited to breakdown of skin (Acute 04/16/23) [facility] Ulcer of left foot, limited to breakdown of skin (Acute 04/16/23) [facility] Iron deficiency (Acute) 03/2023 iron studies indicating deficiency (NOT anemic) Migraine (Chronic) [facility] Chronic constipation (Chronic) [facility] Type 2 diabetes mellitus, with long-term current use of insulin (Chronic) With neuropathy & retinopathy (left, mild) Obesity (Chronic) Cirrhosis of liver (Chronic) [facility] Diabetic neuropathy (Acute) Asthma (Chronic) Tobacco use disorder (Chronic) Started smoking age 9 Poorly controlled type 2 diabetes mellitus (Chronic 03/23/18) Polypharmacy (Chronic 12/14/15) Mild nonproliferative diabetic retinopathy associated with type 2 diabetes mellitus (Chronic 01/22/16) Mental health disorder (Chronic) Pt reports being diagnosed with bipolar disorder, disassociative disorder, anxiety, & multiple personality disorder Hypomagnesemia (Chronic 09/30/16) Hyperlipidemia (Chronic 09/30/16) 10-year ASCVD risk = unable to calculate due to not being age 40+ however dx T2DM, so Rx for statin 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 [facility] 2023: [facility] Depressive disorder (Chronic 10/31/14) ADMISSION SUICIDAL THOUGHTS 06/13/14 OD ATTEMPTS IN PAST Chronic nausea (Chronic) EGD 04/16/16 Dr. 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 Premature surgical menopause JAD/BSO in late 20s, no HRT Hepatitis C 02/14/2016 labwork: undetectable RNA level Surgical History S/P cholecystectomy (06/12/24) Dr Reyes Status post total hysterectomy and bilateral salpingo-oophorectomy (~2006) noncancerous reasons Status post left foot surgery (10/2022) Left fourth metatarsal head excision for chronic ulcer, osteomyelitis ([facility]/Tamia Vidales DPM) Status post section (~2003) EGD (04/16/16) Dr. Ferrer Family History Mother , 46yo due to kidney & liver failure due to alcohol Substance use disorder Alcohol use disorder Father , 62yo from ALS Substance use disorder Alcohol use disorder ALS (amyotrophic lateral sclerosis) Grandmother Colon cancer Paternal Paternal Uncle Cardiac arrest Substance use disorder Alcohol and Pain Medication Abuse Social History Smoking/Tobacco Use Status: Current every day Tobacco Type: cigarettes Smoking packs per day: 1 Smoking cigarettes per day: 20.0 Years smoked: 34 Smoking pack- years: 34.00 Tobacco: How many years used: 33 Quit status: considering quitting Smoking risk assessment performed?: Yes Alcohol Intake: never Drug use: Occasionally Substance use type: former substance user and marijuana Details: Pt. 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 Pets and animals: Yes (1 dog, 4 cats) Pets and animals: cat(s) and dog(s) Sexually active: Yes Do you think of yourself as: straight/heterosexual Current gender identity: female Other: 09/2022: pt reports she is engaged What is your relationship status?: How often do you talk on the phone with friends or family?: three or more times per week How often do you get together with friends or relatives?: once per week How often do you attend yazdanism or jehovah's witness services?: decline to answer Do you belong to any clubs or organized social groups?: no Panel score (0-1 are the most socially isolated patients): 2 What type of physical activity do you participate in: none Duration: decline to answer Frequency: decline to answer Seatbelt use: always Helmet use: No (No reason to wear one) 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 Meds Allergies and Home Medications Allergies Allergy/AdvReac Type Severity Reaction Status Date / Time Penicillins Allergy Severe lip and Verified 01/16/25 12:31 facial swelling lamotrigine (From Lamictal) Allergy Unknown Skin Rash Verified 01/16/25 12:31 clindamycin AdvReac Severe Nausea & Verified 01/16/25 12:31 vomiting aspirin AdvReac Intermediate nausea/pain Verified 01/16/25 12:31 Home Medications ?Medication ?Instructions ?Recorded ?Confirmed ?Type pen needle, diabetic 32 gauge x #100 ea 06/30/23 01/16/25 Rx /32 (BD Ultra-Fine Yamini Pen Needle) blood-glucose meter #1 ea 08/28/23 01/16/25 Rx lancets #400 ea 08/28/23 01/16/25 Rx naloxone 4 mg/actuation nasal 4 mg intranasal Q2M PRN opioid 02/13/24 01/16/25 Rx spray (Narcan) overdose #2 ea blood sugar diagnostic (Blood #400 ea 04/26/24 01/16/25 Rx Glucose Test strips) magnesium oxide 400 mg (241.3 mg 400 mg PO BID #180 tabs 04/26/24 01/16/25 Rx magnesium) tablet nystatin 100,000 unit/gram topical 1 applic topical BID PRN fungal 05/25/24 01/16/25 Rx powder skin infection #30 grams ipratropium 0.5 mg-albuterol 3 mg 3 ml inhalation QID PRN wheezing 05/31/24 01/16/25 Rx (2.5 mg base)/3 mL nebulization #180 mL soln metoclopramide HCl 10 mg tablet 10 mg PO .tid ac 05/31/24 01/16/25 History ondansetron 8 mg disintegrating 8 mg PO BID PRN nausea and 05/31/24 01/16/25 Rx tablet vomiting #60 tabs fremanezumab-vfrm 225 mg/1.5 mL 225 mg subcut QMONTH 06/07/24 01/16/25 History subcutaneous auto-injector (Ajovy) onabotulinumtoxinA 100 unit 300 unit IM ONCE 06/07/24 01/16/25 History solution for injection (Botox) lurasidone 80 mg tablet 40 mg PO DAILY 06/08/24 01/16/25 History atorvastatin 80 mg tablet 80 mg PO DAILY #90 tabs 06/23/24 01/16/25 Rx blood-glucose sensor (Dexcom G6 #3 ea 06/23/24 01/16/25 Rx Sensor device) methadone 10 mg/mL oral 77 mg PO DAILY 06/23/24 01/16/25 History concentrate (Methadone Intensol) blood-glucose transmitter (Dexcom #3 ea 07/07/24 01/16/25 Rx G6 Transmitter device) foam pillow #1 ea 07/07/24 01/16/25 Rx pregabalin 200 mg capsule 200 mg PO TID #90 caps 07/07/24 01/16/25 Rx insulin degludec 100 unit/mL (3 120 unit subcut QHS 07/13/24 01/16/25 History mL) subcutaneous pen (Tresiba FlexTouch U-100 insulin) polyethylene glycol 3350 17 17 g PO DAILY PRN 08/02/24 01/16/25 Rx gram/dose oral powder (Miralax) constipation/gastroparesis #238 grams clonidine HCl 0.1 mg tablet 0.1 mg PO TID 09/19/24 01/16/25 History acetaminophen 500 mg tablet 1,000 mg PO Q6H PRN fever or pain 01/16/25 01/16/25 History acyclovir 800 mg tablet 800 mg PO DAILY 01/16/25 01/16/25 History albuterol sulfate 90 mcg/actuation 2 puff inhalation Q4H PRN 01/16/25 01/16/25 History aerosol inhaler shortness of breath or wheezing dextran 70-hypromellose (PF) 0.1 1 drp ophthalmic (eye) QID PRN 01/16/25 01/16/25 History %-0.3 % eye drops in a dropperette (Natural Tears (PF)) dextroamphetamine-amphetamine 30 30 mg PO BID 01/16/25 01/16/25 History mg tablet furosemide 20 mg tablet 20 mg PO QAM 01/16/25 01/16/25 History gabapentin 300 mg capsule 300 mg PO HS back pain 01/16/25 01/16/25 History glucagon 1 mg/0.2 mL subcutaneous 1 mg subcut ONCE PRN per 01/16/25 01/16/25 History auto-injector (Gvoke HypoPen hypoglycemic protocol 2-Pack) hydroxyzine pamoate 50 mg capsule 50 mg PO BID 01/16/25 01/16/25 History insulin aspart U-100 100 unit/mL 10 - 15 unit subcut AC 01/16/25 01/16/25 History (3 mL) subcutaneous pen (Novolog FlexPen U-100 Insulin aspart) lorazepam 0.5 mg tablet 0.5 mg PO DAILY PRN dyspnea 01/16/25 01/16/25 History methocarbamol 500 mg tablet 500 mg PO HS PRN muscle spasm 01/16/25 01/16/25 History metoprolol succinate 100 mg 100 mg PO DAILY 01/16/25 01/16/25 History tablet,extended release 24 hr olmesartan 20 mg tablet 20 mg PO DAILY 01/16/25 01/16/25 History omeprazole 40 mg capsule,delayed 40 mg PO BID 01/16/25 01/16/25 History release sumatriptan succinate 100 mg tablet 100 mg PO QDAY PRN migraine 01/16/25 01/16/25 History headache valacyclovir 1 gram tablet 1,000 mg PO DAILY PRN for flares 01/16/25 01/16/25 History Exam Narrative Exam Narrative: Chronically ill-appearing female older than stated age disheveled head is atraumatic eyes nonicteric noninjected disconjugate gaze. Oral mucosa slightly dry no exudate neck full range of motion neurologic she is awake alert oriented no focal deficit psychiatric blunted mood and affect cardiovascular regular rate and rhythm respirations even and unlabored abdomen obese soft nontender skin with area of erythema to left outer knee-distal thigh, no knee effusion appreciated. Full range of motion with pain with movement no evidence of septic joint.. No masses appreciated or fluctuant area concerning for abscess. Results Labs 01/17/25 06:13 01/17/25 06:13 Labs: Laboratory Results - last 24 hr 01/16/25 13:12 WBC 15.38 H RBC 5.87 H Hgb 13.2 Hct 42.9 MCV 73 L MCH 22.5 L MCHC 30.8 L RDW 18.6 H Plt Count 293 MPV Immature Gran % 0.6 Neutrophils % 77.8 Lymphocytes % 13.5 Monocytes % 6.9 Eosinophils % 0.8 Basophils % 0.4 Nucleated RBC % 0.0 Absolute Neutrophils 11.97 H Absolute Lymphocytes 2.08 Absolute Monocytes 1.06 H Absolute Eosinophils 0.12 Absolute Basophils 0.06 RBC Morphology See Below Hypochromasia 1+ Anisocytosis 1+ Microcytosis 2+ VBG Lactate 2.3 H* Sodium 129 L Potassium 4.5 Chloride 93 L Carbon Dioxide 28.4 Anion Gap 7.6 BUN 22 H Creatinine 1.3 H Est GFR (CKD-EPI 2020) 51.36 Glucose 627 H* Hemoglobin A1c 13.0 H Calcium 9.5 Total Bilirubin 0.4 AST 15 ALT 17 Alkaline Phosphatase 198 H Total Protein 7.5 Albumin 3.0 L Procalcitonin 0.39 Last Vital Signs Temp 36.8 C 01/16/25 12:26 Pulse 72 01/16/25 12:26 Resp 18 01/16/25 12:26 BP 136/86 01/16/25 12:26 Pulse Ox 94 01/16/25 12:26 Time Spent Time spent with Patient: 55-74 minutes Time was spent: preparing to see the patient(eg.review tests), obtaining and/or reviewing separately otained hiistory, ordering medications,tests, procedures, indepentently interpreting results and counseling the patient
[2025-01-16 17:27] VITALS: BP 179/94; PULSE 65; RESP 16; TEMP 36.2; O2SAT 96
--- NOTE | 2025-01-16 17:44 | W.PC.ACHO ---
Registration Status: Primary Language: Preferred Language: ED Information & Data Chief Complaint Fall/Non TraumaCriteria 01/16/25 13:04 Triage Note night pt got up in 01/16/25 12:26 the middle of the night, rolled left ankle, hit/ twisted left knee and split open left 4th toe. Medical / Surgical History (Last Reviewed 01/16/25 @ 13:03 by Sandrita Gautam NP) DKA (diabetic ketoacidosis) Acute gallstone pancreatitis Acute pancreatitis Opioid use disorder Chronic fatigue (07/19/15) Osteomyelitis Dyspareunia in female (07/09/17) Punctate keratitis of both eyes Ulcer of foot due to secondary diabetes Umbilical hernia (03/11/18) Premature surgical menopause Hepatitis C (Last Reviewed 01/16/25 @ 13:03 by Sandrita Gautam NP) S/P cholecystectomy (06/12/24) Status post total hysterectomy and bilateral salpingo-oophorectomy (~2006) Status post left foot surgery (10/2022) Status post section (~2003) EGD (04/16/16) Most Recent Vital Signs Temperature 36.2 C L 01/16/25 17:27 Temperature Source Temporal Artery Scan 01/16/25 17:27 Pulse 65 01/16/25 17:27 Respiratory Rate 16 01/16/25 17:27 Blood Pressure 179/94 H 01/16/25 17:27 Pulse Oximetry 96 01/16/25 17:27 Oxygen Delivery Method Room Air 01/16/25 17:27 Oxygen Flow Rate 0 01/16/25 17:27 Pain Level 7 01/16/25 14:16 Allergies Penicillins Allergy (Severe, Verified 01/16/25 12:31) lip and facial swelling lamotrigine (From Lamictal) Allergy (Unknown, Verified 01/16/25 12:31) Skin Rash clindamycin Adverse Reaction (Severe, Verified 01/16/25 12:31) Nausea & vomiting aspirin Adverse Reaction (Intermediate, Verified 01/16/25 12:31) nausea/pain lips swelling Precautions Isolation Standard precaution 01/16/25 12:30 IV IV Catheter Type [Left Forearm Saline Lock ] IV Catheter Gauge [Left 18 Forearm] Diagnostics 01/16/25 Range/Units 13:12 WBC 15.38 H (4.4-10.8) 10^3/uL RBC 5.87 H (3.93-5.22) 10^6/uL Hgb 13.2 (11.2-15.7) g/dL Hct 42.9 (36.0-46.0) % MCV 73 L (80-95) fL MCH 22.5 L (27.0-33.0) pg MCHC 30.8 L (32.0-36.0) % RDW 18.6 H (11.7-14.6) % Plt Count 293 (130-400) 10^3/uL MPV (8.0-11.0) fL Immature Gran % 0.6 % Neutrophils % 77.8 % Lymphocytes % 13.5 % Monocytes % 6.9 % Eosinophils % 0.8 % Basophils % 0.4 % Nucleated RBC % 0.0 (0.0-0.3) % Absolute Neutrophils 11.97 H (1.2-6.7) 10^3/uL Absolute Lymphocytes 2.08 (1.2-3.4) 10^3/uL Absolute Monocytes 1.06 H (0.1-0.8) 10^3/uL Absolute Eosinophils 0.12 (0.0-0.7) 10^3/uL Absolute Basophils 0.06 (0.0-0.2) 10^3/uL RBC Morphology See Below Hypochromasia 1+ Anisocytosis 1+ Microcytosis 2+ VBG Lactate 2.3 H* (<or=2.0) mmol/L Sodium 129 L (136-145) mmol/L Potassium 4.5 (3.5-5.1) mmol/L Chloride 93 L (98-107) mmol/L Carbon Dioxide 28.4 (21.0-32.0) mmol/L Anion Gap 7.6 (3-11) mmol/L BUN 22 H (7-18) mg/dL Creatinine 1.3 H (0.55-1.02) mg/dL Est GFR (CKD-EPI 2020) 51.36 (mL/min/1.73m2) Glucose 627 H* (74-106) mg/dL Hemoglobin A1c 13.0 H (<5.7) % Calcium 9.5 (8.5-10.1) mg/dL Total Bilirubin 0.4 (0.2-1.0) mg/dL AST 15 (15-37) U/L ALT 17 (14-59) U/L Alkaline Phosphatase 198 H (46-116) U/L Total Protein 7.5 (6.4-8.2) g/dL Albumin 3.0 L (3.4-5.0) g/dL Procalcitonin 0.39 ng/mL [id number] Documentation Fingerstick Glucose Start: 01/16/25 14:09 Freq: .Q1H Status: Active Protocol: Activity Type Activity Date Activity User E-sign Co-sign Detail Recorded Client Recorded Date Recorded By Document 01/16/25 16:01 BKG DAEMON(3) [id number] 01/16/25 16:02 BKG DAEMON(4) Intake and Output - 24 Hour Total 01/16/25 12:21 thru 01/16/25 12:26 Weight 100.698 kg Falls Risk Assessment History of Falls Previous History 01/16/25 12:59 Contributing Factors Impairments 01/16/25 12:59 Ambulatory Aids Independent 01/16/25 12:59 Gait Evaluation No gait disturbance 01/16/25 12:59 Cognition No cognitive impairment 01/16/25 12:59 Fall Total Score 18 01/16/25 12:59 Level of Risk Standard/Low Risk 01/16/25 12:59 Problems (Last Reviewed 01/16/25 @ 13:03 by Sandrita Gautam NP) Cellulitis of left lower extremity (Acute) Obstructive sleep apnea of adult (Acute) Type 2 diabetes mellitus, with long-term current use of insulin (Chronic) Hyperlipidemia (Chronic 09/30/16) Depressive disorder (Chronic 10/31/14) v v v v v v v v v Sending and/or Receiving Nurses: Please use comment section below to note any information pertinent to the patient hand-off not included above. Information / Comments: report received all questions answered. Report received from: HORACIO Ruby @ [phone]
[2025-01-16 17:48] VITALS: BP 179/94; PULSE 65; RESP 16; TEMP 36.2; O2SAT 96
[2025-01-16 17:55] VITALS: BP 159/89; PULSE 67; RESP 18; TEMP 36.2; O2SAT 96
[2025-01-16] MEDS: Nicotine 21 MG/24 HR PATCH TD (18:32)
[2025-01-16 18:33] LABS: Lab Add On Test DONE
[2025-01-16 18:52] LABS: Lactate 1.4 mmol/L (<or=2.0)
[2025-01-16 19:07] LABS: C-Reactive Protein 16.42 mg/dL (<or=0.5)
[2025-01-16 19:09] LABS: Glucose 469 mg/dL (74-106)
[2025-01-16] MEDS: Insulin Glargine 300 UNITS/3 ML PEN 35 UNITS SC (19:10)
[2025-01-16] MEDS: Insulin Aspart 300 UNITS/3 ML PEN 15 UNITS SC (19:12)
[2025-01-16] MEDS: Insulin Aspart 300 UNITS/3 ML PEN SC ×2 (19:13→22:35)
[2025-01-16 19:31] VITALS: BP 146/84; PULSE 59; RESP 15; TEMP 36.2; O2SAT 94
[2025-01-16] MEDS: Magnesium Oxide 400 MG TAB PO (21:01)
[2025-01-16] MEDS: Pregabalin 100 MG CAP 200 MG PO (21:02)
[2025-01-16] MEDS: cloNIDine 0.1 MG TAB PO (21:02)
[2025-01-16] MEDS: Mirtazapine 15 MG TAB PO (21:02)
[2025-01-16] MEDS: cloNIDine 0.1 MG TAB 0.2 MG PO (21:02)
[2025-01-16] MEDS: Acetaminophen 500 MG TAB 1000 MG PO (21:02)
[2025-01-16] MEDS: Gabapentin 300 MG CAP PO (21:03)
[2025-01-16] MEDS: Methocarbamol 500 MG TAB 1000 MG PO (21:03)
[2025-01-16] MEDS: Normal Saline Flush 10 ML SYR IVP (21:03)
[2025-01-16] MEDS: Enoxaparin 40 MG/0.4 ML SYR SC (21:03)
[2025-01-16] MEDS: ceFAZolin 2 GM/50 ML BAG IVPB (21:48)
[2025-01-16] MEDS: Budesonide/Formoterol 160/4.5 6 GM 60 PUFF INH IH (22:31)
--- NOTE | 2025-01-16 22:36 | TELEP.MEDR_ITS ---
Date of service: 01/16/25 Time of Service: 22:36 Telepharmacy Home Med Rec Allergies Allergies: Penicillins Allergy (Severe, Verified 01/16/25 12:31) lip and facial swelling lamotrigine (From Lamictal) Allergy (Unknown, Verified 01/16/25 12:31) Skin Rash clindamycin Adverse Reaction (Severe, Verified 01/16/25 12:31) Nausea & vomiting aspirin Adverse Reaction (Intermediate, Verified 01/16/25 12:31) nausea/pain Interview Person Interviewed: spoke with the pt spoke with [facility] [place] ([phone]) for methadone verification - had to leave a message, unable to verify methadone dose at this time Quality Quality of Interview/Accuracy of Medication List: Good Sources Sources used to compile medication list: SpotMe Medication List, SureScripts and Other Changes made to Home Medication List: ADDITIONS: furosemide 20 mg daily metoprolol succ XL 100 mg daily valacyclovir 1000 mg acyclovir 800 mg hydroxyzine 50 mg dextroamphetamine-amphetamine 30 mg BID olmesartan 20 mg sumatriptan natural tears DELETIONS: duplicate albuterol inhaler clonidine 0.2 mg dose advair furosemide 40 mg dose losartan metoprolol succ XL 25 mg and 50 mg doses mirtazipine spironolactone valacyclovir 500 mg dose acyclovir 200 mg dose CHANGES: tylenol to 1000 mg prn clonidine to 0.1 mg TID gabapentin to 300 mg QHS - pt states she is taking this every night, not prn insulin aspart - pt is using a sliding scale only at home, no set units with each meal tresiba insulin to 120 units QHS lorazepam to 0.5 mg daily prn lurasidone to 40 mg daily methocarbamol to 500 mg QHS prn metoclopramide to 10 mg TID before each meal omeprazole to BID Additional Notes Additional Notes: please see updated med list - many changes to the previous med list in EHR * clonidine - pt is taking 0.1 mg TID at home, not 0.1 mg BID and 0.2 mg QHS * furosemide - pt is taking 20 mg daily at home, not 40 mg * gabapentin - pt is taking 300 mg QHS every night, not prn (pt states she is also taking pregabalin 200 mg TID) * insulin aspart - pt is using a sliding scale only at home, no set units with each meal * losartan/olmesartan - pt is taking olmesartan 20 mg daily at home, not losartan * lurasidone - pt is taking 40 mg daily at home * metoclopramide - pt is taking 10 mg TID before each meal, not prn * metoprolol succ XL - pt is taking XL 100 mg daily * pt states she is NOT taking - mirtazapine, spironolactone, or nicotine patches at home * pt states she is taking acyclovir 800 mg daily and only uses valacyclovir for flares methadone - pt states she is taking 77 mg daily - spoke with [facility] [place] ([phone]) for methadone verification - had to leave a message, unable to verify methadone dose at this time pt states she is taking gabapentin and pregabalin at home based on some sure scripts fill history - compliance could be an issue Ajovy - pt's last injection was 2 months ago, she is behind on her schedule Botox injections - pt's last dose was 3 months ago, she is due again now Recommended Changes Recommended Changes(reason for recommendation): none Attestation: The home medication list is now updated to the best of my knowledge and is ready to be reconciled by the provider. Please contact the TelePharmacy Medication Reconciliation Pharmacist at for any questions. Meds Allergies and Home Medications Allergies Allergy/AdvReac Type Severity Reaction Status Date / Time Penicillins Allergy Severe lip and Verified 01/16/25 12:31 facial swelling lamotrigine (From Lamictal) Allergy Unknown Skin Rash Verified 01/16/25 12:31 clindamycin AdvReac Severe Nausea & Verified 01/16/25 12:31 vomiting aspirin AdvReac Intermediate nausea/pain Verified 01/16/25 12:31 Home Medications ?Medication ?Instructions ?Recorded ?Confirmed ?Type pen needle, diabetic 32 gauge x #100 ea 06/30/23 01/16/25 Rx /32 (BD Ultra-Fine Yamini Pen Needle) blood-glucose meter #1 ea 08/28/23 01/16/25 Rx lancets #400 ea 08/28/23 01/16/25 Rx naloxone 4 mg/actuation nasal 4 mg intranasal Q2M PRN opioid 02/13/24 01/16/25 Rx spray (Narcan) overdose #2 ea blood sugar diagnostic (Blood #400 ea 04/26/24 01/16/25 Rx Glucose Test strips) magnesium oxide 400 mg (241.3 mg 400 mg PO BID #180 tabs 04/26/24 01/16/25 Rx magnesium) tablet nystatin 100,000 unit/gram topical 1 applic topical BID PRN fungal 05/25/24 01/16/25 Rx powder skin infection #30 grams ipratropium 0.5 mg-albuterol 3 mg 3 ml inhalation QID PRN wheezing 05/31/24 01/16/25 Rx (2.5 mg base)/3 mL nebulization #180 mL soln metoclopramide HCl 10 mg tablet 10 mg PO .tid ac 05/31/24 01/16/25 History ondansetron 8 mg disintegrating 8 mg PO BID PRN nausea and 05/31/24 01/16/25 Rx tablet vomiting #60 tabs fremanezumab-vfrm 225 mg/1.5 mL 225 mg subcut QMONTH 06/07/24 01/16/25 History subcutaneous auto-injector (Ajovy) onabotulinumtoxinA 100 unit 300 unit IM ONCE 06/07/24 01/16/25 History solution for injection (Botox) lurasidone 80 mg tablet 40 mg PO DAILY 06/08/24 01/16/25 History atorvastatin 80 mg tablet 80 mg PO DAILY #90 tabs 06/23/24 01/16/25 Rx blood-glucose sensor (Dexcom G6 #3 ea 06/23/24 01/16/25 Rx Sensor device) methadone 10 mg/mL oral 77 mg PO DAILY 06/23/24 01/16/25 History concentrate (Methadone Intensol) blood-glucose transmitter (Dexcom #3 ea 07/07/24 01/16/25 Rx G6 Transmitter device) foam pillow #1 ea 07/07/24 01/16/25 Rx pregabalin 200 mg capsule 200 mg PO TID #90 caps 07/07/24 01/16/25 Rx insulin degludec 100 unit/mL (3 120 unit subcut QHS 07/13/24 01/16/25 History mL) subcutaneous pen (Tresiba FlexTouch U-100 insulin) polyethylene glycol 3350 17 17 g PO DAILY PRN 08/02/24 01/16/25 Rx gram/dose oral powder (Miralax) constipation/gastroparesis #238 grams clonidine HCl 0.1 mg tablet 0.1 mg PO TID 09/19/24 01/16/25 History acetaminophen 500 mg tablet 1,000 mg PO Q6H PRN fever or pain 01/16/25 01/16/25 History acyclovir 800 mg tablet 800 mg PO DAILY 01/16/25 01/16/25 History albuterol sulfate 90 mcg/actuation 2 puff inhalation Q4H PRN 01/16/25 01/16/25 History aerosol inhaler shortness of breath or wheezing dextran 70-hypromellose (PF) 0.1 1 drp ophthalmic (eye) QID PRN 01/16/25 01/16/25 History %-0.3 % eye drops in a dropperette (Natural Tears (PF)) dextroamphetamine-amphetamine 30 30 mg PO BID 01/16/25 01/16/25 History mg tablet furosemide 20 mg tablet 20 mg PO QAM 01/16/25 01/16/25 History gabapentin 300 mg capsule 300 mg PO HS back pain 01/16/25 01/16/25 History glucagon 1 mg/0.2 mL subcutaneous 1 mg subcut ONCE PRN per 01/16/25 01/16/25 History auto-injector ([facility] HypoPen hypoglycemic protocol 2-Pack) hydroxyzine pamoate 50 mg capsule 50 mg PO BID 01/16/25 01/16/25 History insulin aspart U-100 100 unit/mL 10 - 15 unit subcut AC 01/16/25 01/16/25 History (3 mL) subcutaneous pen (Novolog FlexPen U-100 Insulin aspart) lorazepam 0.5 mg tablet 0.5 mg PO DAILY PRN dyspnea 01/16/25 01/16/25 History methocarbamol 500 mg tablet 500 mg PO HS PRN muscle spasm 01/16/25 01/16/25 History metoprolol succinate 100 mg 100 mg PO DAILY 01/16/25 01/16/25 History tablet,extended release 24 hr olmesartan 20 mg tablet 20 mg PO DAILY 01/16/25 01/16/25 History omeprazole 40 mg capsule,delayed 40 mg PO BID 01/16/25 01/16/25 History release sumatriptan succinate 100 mg tablet 100 mg PO QDAY PRN migraine 01/16/25 01/16/25 History headache valacyclovir 1 gram tablet 1,000 mg PO DAILY PRN for flares 01/16/25 01/16/25 History
[2025-01-16] MEDS: Calcium Carbonate *TUMS* 500 MG CHEW 1000 MG PO (22:37)
[2025-01-16] MEDS: Omeprazole 20 MG CAPCR 40 MG PO (22:47)
[2025-01-17] MEDS: ceFAZolin 2 GM/50 ML BAG IVPB ×2 (05:19→11:36)
[2025-01-17 06:43] LABS: Absolute Basophil Count 0.09 10^3/uL (0.0-0.2); Absolute Monocyte Count 0.96 10^3/uL (0.1-0.8); Basophils % 0.7 %; HCT 45.1 % (36.0-46.0); HGB 13.3 g/dL (11.2-15.7); Immature Grans % 0.7 %; Lymphocytes % 27.5 %; MCH 21.8 pg (27.0-33.0); MCHC 29.5 % (32.0-36.0); MCV 74 fL (80-95); MPV 11.4 fL (8.0-11.0); Monocytes % 7.1 %; Platelet Count 291 10^3/uL (130-400); RDW 18.5 % (11.7-14.6); RDW-SD 45.9 fL; WBC 13.46 10^3/uL (4.4-10.8)
[2025-01-17 06:45] LABS: Absolute Eosinophil Count 0.13 10^3/uL (0.0-0.7); Absolute Neutrophil Count 8.48 10^3/uL (1.2-6.7)
[2025-01-17 07:02] LABS: Anion Gap 8.3 mmol/L (3-11); BUN 15 mg/dL (7-18); CO2 30.7 mmol/L (21.0-32.0); CREATININE 0.9 mg/dL (0.55-1.02); Calcium 9.5 mg/dL (8.5-10.1); Chloride 100 mmol/L (98-107); Estimated GFR 79.85 (mL/min/1.73m2); Glucose 283 mg/dL (74-106); Potassium 3.8 mmol/L (3.5-5.1)
[2025-01-17 07:05] LABS: Diff Comment Diff Reviewed; Microcytosis 2+
[2025-01-17 07:07] LABS: Sodium 139 mmol/L (136-145)
[2025-01-17 07:32] VITALS: BP 133/79; PULSE 66; RESP 14; TEMP 36.3; O2SAT 98
[2025-01-17] MEDS: Budesonide/Formoterol 160/4.5 6 GM 60 PUFF INH IH (08:25)
[2025-01-17] MEDS: Methadone Liquid 10 MG/ML 77 MG PO (08:32)
[2025-01-17] MEDS: Ondansetron O.D.T. 4 MG TABEF 8 MG PO (08:32)
[2025-01-17] MEDS: Pregabalin 100 MG CAP 200 MG PO (08:49)
[2025-01-17] MEDS: Atorvastatin 40 MG TAB 80 MG PO (08:49)
[2025-01-17] MEDS: Nicotine 21 MG/24 HR PATCH TD (08:49)
[2025-01-17] MEDS: valACYclovir 500 MG TAB PO (08:50)
[2025-01-17] MEDS: Omeprazole 20 MG CAPCR 40 MG PO (08:50)
[2025-01-17] MEDS: Furosemide 20 MG TAB PO (08:50)
[2025-01-17] MEDS: Metoclopramide 10 MG TAB PO ×2 (08:50→11:36)
[2025-01-17] MEDS: cloNIDine 0.1 MG TAB PO (08:50)
[2025-01-17] MEDS: Magnesium Oxide 400 MG TAB PO (08:51)
[2025-01-17] MEDS: Losartan 25 MG TAB PO (08:51)
[2025-01-17] MEDS: Doxycycline Hyclate 100 MG CAP PO ×2 (08:51→09:15)
[2025-01-17] MEDS: Metoprolol CR 100 MG TABCR PO (08:51)
[2025-01-17] MEDS: Insulin Aspart 300 UNITS/3 ML PEN 15 UNITS SC (08:54)
[2025-01-17] MEDS: Insulin Aspart 300 UNITS/3 ML PEN SC (08:55)
[2025-01-17] MEDS: Insulin Glargine 300 UNITS/3 ML PEN 40 UNITS SC (08:55)
--- NOTE | 2025-01-17 09:48 | PDOC.CMIN ---
Care Management Initial Assmt Initial Assessment Reason for Hospitalization: Cellultis Functional Status/Living Situation Patient Presentation: Denise was lying in bed when arrived. She was pleasant and willing to engage in conversation. Denise presented to the ED after falling and rolling her ankle on 's night in the middle of the night. She reports that she fell and hit her head on the door frame. Advance Directives Advance Directives: Do you have an Advance Directive: AD On File at [facility]: N 11/17/14 13:49 Date Asked 01/16/25 01/16/25 12:28 AD Date Reviewed COLST On File at [facility] No 01/12/24 19:57 COLST Date Scanned Code Status Resuscitation Status Full Code Insurance Coverage/Financial Issues Insurance: [facility] Care Team Visit Care Team Role Provider Type Halima Clay, BHARATH NURSE PRACTITIONER Kevin Lehman DO Primary Care Provider NON-[facility] STAFF PHYSICIAN Denise Ramos, [place], [facility] Other Providers TECHNICAL SUPPORT MANAGER Nadeem Cason RDN Other Providers TECHNICAL SUPPORT MANAGER Sandrita Gautam NP Emergency Provider NURSE PRACTITIONER Janes Weathers MD Admit Provider [facility] STAFF PHYSICIAN Attending Provider Discharge Potential Discharge Needs: PCP F/U Appt Anticipated Barriers to Discharge: Medical Status Patient/Family Education Needs: Review discharge instructions, discuss Ask Me Three Transportation: Private vehicle Plan: Anticipate Denise will be discharged home once medically cleared. [place]les will follow up with her community provider and discharge plan of care. Denise will likely transport via private vehicle by family. Social Determinants of Health Screening Social Determinants of health last assessed in clinic: 01/16/25 Will the Patient Participate in the Screening?: Yes Do you worry about having a steady place to live?: no Problems where you live: no known problems In the past 12 months, have you had to go without electric, gas, oil or water in your home?: no Has lack of transportation kept you from medical appointments or from doing things needed for daily living?: yes Has anyone in your life made you feel unsafe or unsupported?: no How hard is it for you to pay for the very basics like food, housing, medical care, and heating? Would you say it is:: Not hard at all Do you want help finding or keeping work or a job?: I do not need or want help If for any reason you need help with day-to-day activities such as bathing, preparing meals, shopping, managing finances, etc., do you get the help you need?: I don?t need any help How often do you feel lonely or isolated from those around you?: Never Do you speak a language other than Croatian at home?: No Does the patient want assistance with any of the above?: No Health Related Social Needs Health related social needs: transportation insecurity (Z59.82) PFSH All Active Problems (Updated 01/16/25 @ 14:54 by Sandrita Gautam NP) Diabetic foot ulcer (Acute) Cellulitis of left lower extremity (Acute) Chest pain (Acute) Orthopnea (Acute) Edema of both lower legs (Acute) l>r .. chf? INACTIVITY? Myocardial infarction acute (Acute) Fatty infiltration of liver (Acute) Hx cirrhosis? 2' pancreatitis (05/2024)? Elevated troponin level not due myocardial infarction (Acute ~05/2024) ?type 2 ACS Acute postoperative abdominal pain (Acute) Diabetic ketoacidosis (Acute ~05/2024) Corneal abrasion (Acute) Obstructive sleep apnea of adult (Acute) [facility] 12/23/23 Muscle spasm of left lower extremity (Acute) Muscle spasm of back (Acute) Diabetic cataract of right eye (Acute) Ulcer of right foot limited to breakdown of skin (Acute 04/16/23) [facility] Ulcer of left foot, limited to breakdown of skin (Acute 04/16/23) [facility] Iron deficiency (Acute) 03/2023 iron studies indicating deficiency (NOT anemic) Migraine (Chronic) [facility] Chronic constipation (Chronic) [facility] Type 2 diabetes mellitus, with long-term current use of insulin (Chronic) With neuropathy & retinopathy (left, mild) Obesity (Chronic) Cirrhosis of liver (Chronic) [facility] Diabetic neuropathy (Acute) Asthma (Chronic) Tobacco use disorder (Chronic) Started smoking age 9 Poorly controlled type 2 diabetes mellitus (Chronic 03/23/18) Polypharmacy (Chronic 12/14/15) Mild nonproliferative diabetic retinopathy associated with type 2 diabetes mellitus (Chronic 01/22/16) Mental health disorder (Chronic) Pt reports being diagnosed with bipolar disorder, disassociative disorder, anxiety, & multiple personality disorder Hypomagnesemia (Chronic 09/30/16) Hyperlipidemia (Chronic 09/30/16) 10-year ASCVD risk = unable to calculate due to not being age 40+ however dx T2DM, so Rx for statin 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 Jimenez [facility] 2023: [facility] GI Depressive disorder (Chronic 10/31/14) ADMISSION SUICIDAL THOUGHTS 06/13/14 OD ATTEMPTS IN PAST Chronic nausea (Chronic) EGD 04/16/16 Dr. 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) Medical History DKA (diabetic ketoacidosis) Acute gallstone pancreatitis Acute pancreatitis Opioid use disorder MAT with methadone Chronic fatigue (07/19/15) Osteomyelitis Dyspareunia in female (07/09/17) Punctate keratitis of both eyes Ulcer of foot due to secondary diabetes Umbilical hernia (03/11/18) 03/17/2018: [facility] Premature surgical menopause JAD/BSO in late 20s, no HRT Hepatitis C 02/14/2016 labwork: undetectable RNA level Surgical History S/P cholecystectomy (06/12/24) Dr Reyes Status post total hysterectomy and bilateral salpingo-oophorectomy (~2006) noncancerous reasons Status post left foot surgery (10/2022) Left fourth metatarsal head excision for chronic ulcer, osteomyelitis ([facility]/Tamia Vidales DPM) Status post section (~2003) EGD (04/16/16) Dr. Ferrer Family History Mother , 46yo due to kidney & liver failure due to alcohol Substance use disorder Alcohol use disorder Father , 62yo from ALS Substance use disorder Alcohol use disorder ALS (amyotrophic lateral sclerosis) Grandmother Colon cancer Paternal Paternal Uncle Cardiac arrest Substance use disorder Alcohol and Pain Medication Abuse Social History Smoking/Tobacco Use Status: Current every day Tobacco Type: cigarettes Smoking packs per day: 1 Smoking cigarettes per day: 20.0 Years smoked: 34 Smoking pack-years: 34.00 Tobacco: How many years used: 33 Quit status: considering quitting Smoking risk assessment performed?: Yes Alcohol Intake: never Drug use: Occasionally Substance use type: former substance user and marijuana Details: Pt. 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 Pets and animals: Yes (1 dog, 4 cats) Pets and animals: cat(s) and dog(s) Sexually active: Yes Do you think of yourself as: straight/heterosexual Current gender identity: female Other: 09/2022: pt reports she is engaged What is your relationship status?: How often do you talk on the phone with friends or family?: three or more times per week How often do you get together with friends or relatives?: once per week How often do you attend oriental orthodox or mormonism services?: decline to answer Do you belong to any clubs or organized social groups?: no Panel score (0-1 are the most socially isolated patients): 2 What type of physical activity do you participate in: none Duration: decline to answer Frequency: decline to answer Seatbelt use: always Helmet use: No (No reason to wear one) Drive intox or ride w/intox milk 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
--- NOTE | 2025-01-17 10:40 | PDOC.CMDIS ---
Date of service: 01/17/25 Time of Service: 10:40 LACE Index Scoring Tool Questions: Length of Stay (in days): 1 Was the patient admitted via the E.D.?: Yes Comorbidities: Diabetes w/o Complication and Liver or Renal Disease E.D. Visits: 10 Answers: Total Score: 13 Risk of Readmission: High Risk Care Management Discharge Plan Reason for Hospitalization: Cellulitis Discharge Plan: Denise will be discharged home with no new services. She will follow up with her community providers and continue per her plan of care. She will be transported in a private vehicle by her . Patient/Family Education Needs: Review discharge instructions and discuss Ask Me Three. SDOH Health Related Social Needs: No Data to Display
--- NOTE | 2025-01-17 11:15 | DSE_ITS ---
Date of service: 01/17/25 Time of Service: 11:15 DS: Diagnosis Discharge Diagnosis (1) Sepsis without septic shock: Status: Acute (2) Cellulitis of left lower extremity: Status: Acute (3) Type 2 diabetes mellitus, with long-term current use of insulin: Status: Chronic (4) Depressive disorder: Status: Chronic (5) Hyperlipidemia: Status: Chronic (6) Obstructive sleep apnea of adult: Status: Acute Discharge Plan Disposition Patient Disposition: Home Condition: Improving Discharge Details Reason For Visit: Cellulitis Admit Date/Time: 01/16/25 15:44 Admit Provider: Janes Weathers Attending Provider: Janes Weathers Primary Care Provider: Kevin Lehman Hospital Course Hospital Course: This is a 44-year-old female patient with a significant past medical history including but not limited to poorly controlled diabetes mellitus with a hemoglobin A1c of 13, fatty infiltration of the liver, myocardial infarction, HSV 1 infection, depression, polypharmacy, who presented to the emergency department after reporting a mechanical fall that she had a few days prior. She states she hit her head on a door frame. She noted some increasing pain and redness in her left lower extremity. Imaging in the emergency department showed no acute fractures. Notable labs showed an elevated white count at 16. Elevated inflammatory markers. Elevated lactic acid. And poorly controlled diabetes with a blood sugar in the 400s. There was no evidence of DKA. She did meet criteria for sepsis without septic shock. She was given doxycycline in the emergency department and hospitalist services was contacted for admission. Her lactic acid normalized. White count improving. Hemodynamically she remained stable and afebrile. Her erythema was receding from her admission skin markings. She was eating and drinking bowels and bladder functioning and requesting discharge to home the following morning. With her improvement overnight I think it is reasonable to trial them to oral antibiotics and treat outpatient. She states she has a follow-up appointment with her primary care provider coming up this Sunday, January 19, 2025. She was advised to continue monitoring the area closely and report any worsening of her symptoms immediately. She is being discharged on doxycycline and cefazolin to complete a 7-day course. Will follow-up with her outpatient team for further recommendations or extension of antibiotics if warranted after reevaluation. Discharge discussed with Dr. Weathers Home Meds and New Rx's Prescriptions: New doxycycline hyclate 100 mg capsule 100 mg PO BID Qty: 14 0RF cephalexin 500 mg capsule 500 mg PO QID Qty: 28 0RF Continued metoclopramide HCl 10 mg tablet 10 mg PO .tid ac Rx Instructions: administer 30 minutes before meals ondansetron 8 mg tablet,disintegrating 8 mg PO BID PRN (Reason: nausea and vomiting) Qty: 60 11RF ipratropium-albuterol 0.5 mg-3 mg(2.5 mg base)/3 mL solution for nebulization 3 ml inhalation QID PRN (Reason: wheezing) Qty: 180 1RF Rx Instructions: During asthma exacerbation, may use preventatively TID, titrating down to QID PRN as wheeze & SOB improve. atorvastatin 80 mg tablet 80 mg PO DAILY Qty: 90 3RF (DME) Dexcom G6 Sensor Device See Rx Instructions .ROUTE .COMPLEX Qty: 3 6RF Dose Instruction: USE DIRECTED Rx Instructions: USE DIRECTED methadone [Methadone Intensol] 10 mg/mL concentrate 77 mg PO DAILY naloxone [Narcan] 4 mg/actuation spray,non-aerosol 4 mg intranasal Q2M PRN (Reason: opioid overdose) Qty: 2 0RF Rx Instructions: spray 1 dose into ONE nostril; alternate nostrils w each dose until help arrives (DME) Dexcom G6 Transmitter Device See Rx Instructions .Route Qty: 3 3RF Rx Instructions: As directed pregabalin 200 mg capsule 200 mg PO TID Qty: 90 3RF Patient Comments: -- Pt states she is taking both pregabalin and gabapentin (DME) foam pillow triangular See Rx Instructions .Route .MEDSUPPLY Qty: 1 0RF Rx Instructions: Trial sleeping & resting (legs need elevation) @ 30-40' angle to alleviate SOB/Panic (DME) pen needle, diabetic [BD Ultra-Fine Yamini Pen Needle] 32 gauge x 5/32 needle See Rx Instructions .ROUTE .COMPLEX Qty: 100 0RF Dose Instruction: USE TO ADMINISTER INSULIN ONCE DAILY Rx Instructions: USE TO ADMINISTER INSULIN ONCE DAILY (DME) blood-glucose meter Misc See Rx Instructions .Route Qty: 1 0RF Rx Instructions: One Touch meter (DME) lancets Misc See Rx Instructions .ROUTE .MEDSUPPLY Qty: 400 3RF Rx Instructions: As directed to check blood glucose four times daily. On insulin. Dispense one touch ultra (DME) Blood Glucose Test Strip See Rx Instructions .MEDSUPPLY Qty: 400 3RF Rx Instructions: As directed to check blood glucose four times daily. On insulin. Dispense one touch ultra magnesium oxide 400 mg (241.3 mg magnesium) tablet 400 mg PO BID Qty: 180 0RF nystatin 100,000 unit/gram powder 1 applic Topical BID PRN (Reason: fungal skin infection) Qty: 30 3RF Rx Instructions: Apply powder to affected area under R breast twice daily insulin degludec [Tresiba FlexTouch U-100] 100 unit/mL (3 mL) insulin pen 120 unit subcut QHS Patient Comments: takes more than rx'd due to blood sugars being high polyethylene glycol 3350 [Miralax] 17 gram/dose powder 17 g PO DAILY PRN (Reason: constipation/gastroparesis) Qty: 238 0RF Ajovy Autoinjector 225 mg/1.5 mL auto-injector 225 mg subcut QMONTH Patient Comments: Pt has missed the last 2 months Botox 100 unit recon soln 300 unit IM ONCE Patient Comments: -- Pt's last dose was 3 months ago, next dose due anytime Rx Instructions: divided among affected muscles clonidine HCl 0.1 mg tablet 0.1 mg PO TID lurasidone 80 mg tablet 40 mg PO DAILY Patient Comments: TAKE ONE TABLET BY MOUTH EVERY DAY WITH AT LEAST 350 CALORIES furosemide 20 mg tablet 20 mg PO QAM metoprolol succinate 100 mg tablet extended release 24 hr 100 mg PO DAILY acyclovir 800 mg tablet 800 mg PO DAILY hydroxyzine pamoate 50 mg capsule 50 mg PO BID Patient Comments: TAKE ONE CAPSULE BY MOUTH TWICE A DAY dextroamphetamine-amphetamine 30 mg tablet 30 mg PO BID Patient Comments: TAKE ONE TABLET BY MOUTH TWICE A DAY @ 5am, 11am olmesartan 20 mg tablet 20 mg PO DAILY valacyclovir 1 gram tablet 1,000 mg PO DAILY PRN (Reason: for flares) Patient Comments: TAKE ONE TABLET BY MOUTH EVERY DAY prn flares sumatriptan succinate 100 mg tablet 100 mg PO QDAY PRN (Reason: migraine headache) Patient Comments: TAKE ONE TABLET BY MOUTH ONCE NEEDED FOR MIGRAINE HEADACHE A SECOND DOSE CAN BE TAKEN IF NO REPSONSE AFTER 2 HOURS MAXIMUM DAILY DOSE = 2 methocarbamol 500 mg tablet 500 mg PO HS PRN (Reason: muscle spasm) Rx Instructions: Use lowest effective dose for shortest duration for muscle spasm omeprazole 40 mg capsule,delayed release(DR/EC) 40 mg PO BID acetaminophen 500 mg tablet 1,000 mg PO Q6H MDD 3000 mg PRN (Reason: fever or pain) Rx Instructions: 1 month supply lorazepam 0.5 mg tablet 0.5 mg PO DAILY PRN (Reason: dyspnea) Rx Instructions: Short term increase to BID PRN panic or shortness of breath orally daily PRN; (FYI to Prescriber @ [facility]) gabapentin 300 mg capsule 300 mg PO HS Patient Comments: -- Pt states she is taking both pregabalin and gabapentin albuterol sulfate 90 mcg/actuation HFA aerosol inhaler 2 puff Inhalation Q4H PRN (Reason: shortness of breath or wheezing) Rx Instructions: DISPENSE ALBUTEROL INHALER BRAND COVERED BY INSURANCE insulin aspart U-100 [Novolog FlexPen U-100 Insulin] 100 unit/mL (3 mL) insulin pen 10 - 15 unit subcut AC Rx Instructions: -- Pt uses 10-15 units sliding scale before meals Gvoke HypoPen 2-Pack 1 mg/0.2 mL auto-injector 1 mg subcut ONCE PRN (Reason: per hypoglycemic protocol) Rx Instructions: HYPOGLYCEMIA; as a single dose; may repeat once after 15 minutes if no response Natural Tears (PF) 0.1-0.3 % dropperette 1 drp ophthalmic (eye) QID PRN Discharge Instructions Instructions: Cellulitis (skin infection) in adults - Discharge instructions Additional Instructions: Take antibiotics as prescribed even if you feel better Push fluids to stay well-hydrated drinking 6 to 8 glasses or more water daily Check blood sugars before meals and at bedtime and adjust insulin as directed for better blood sugar control your hemoglobin A1c was 13.0 please discuss with your primary care provider at your appointment Resume your usual medications as previously directed Elevate your leg above the level of your heart is much as possible throughout the day to help reduce swelling and redness. Monitor area and report worsening symptoms to your provider immediately Stand Alone Forms: Nursing Discharge Form Referrals: Kevin Lehman DO [Primary Care Provider] - 01/19/25 (Keep your scheduled appointment on January 19, 2025) Activity:: Activity as Tolerated Equipment/Supplies:: No Equipment Needed Diet:: Carb Counting Discharge Orders Discharge Orders: Discharge Order (Routine); Ordered 01/17/25 Ordered By: Halima Clay DS: Summary Time Spent with Patient providing and/or coordinating discharge services: Greater than 30 minutes Status at Discharge Functional status at discharge: independent ambulation Overall status at discharge: patient is progressing back to baseline Mental Status: mental status grossly normal Speech and Movement: speech and movement normal Mood: congruent mood Affect: normal affect Quality:SDOH Health Related Social Needs: No Data to Display Exam Narrative Exam Narrative: Chronically ill-appearing female older than stated age sitting up on the edge of the bed in no acute distress. Head is atraumatic eyes nonicteric noninjected disconjugate gaze. Oral mucosa slightly dry no exudate neck full range of motion neurologic she is awake alert oriented no focal deficit psychiatric blunted mood and affect cardiovascular regular rate and rhythm respirations even and unlabored abdomen obese soft nontender skin with area of erythema to left outer knee-distal thigh, no knee effusion appreciated. Erythema well within skin marking receding and decreasing in intensity Psych Mental Status: mental status grossly normal Speech and Movement: speech and movement normal Mood: congruent mood Affect: normal affect DS: Data Vitals/I&O Vitals and I&O: Vital Signs Temperature 36.3 C L 01/17/25 07:32 Temperature Source Temporal Artery Scan 01/17/25 07:32 Pulse 66 01/17/25 07:32 Pulse Rhythm Regular 01/16/25 18:35 Respiratory Rate 14 01/17/25 07:32 Respiratory Effort Normal 01/16/25 18:35 Blood Pressure 133/79 01/17/25 07:32 Pulse Oximetry 98 01/17/25 07:32 Oxygen Delivery Method Room Air 01/17/25 07:32 Oxygen Flow Rate 0 01/17/25 07:32 Pain Level 9 01/17/25 08:32 Intake & Output 01/16/25 01/16/25 01/17/25 11:59 23:59 11:59 Intake Total 1150 / 1150 Output Total 600 / 600 600 / 600 Balance 550 / 550 -600 / -600 Weight 100.698 kg Intake: IV 1150 / 1150 Output: Urine 600 / 600 600 / 600 Other: Urine Color Yellow Light Shira Urine Odor Normal Data Completed and Pending Labs on day of discharge: Labs from last 24 hours 01/17/25 06:13: WBC 13.46 H, RBC 6.10 H, Hgb 13.3, Hct 45.1, MCV 74 L, MCH 21.8 L, MCHC 29.5 L, RDW 18.5 H, Plt Count 291, MPV 11.4 H, Immature Gran % 0.7, Neutrophils % 63.0, Lymphocytes % 27.5, Monocytes % 7.1, Eosinophils % 1.0, Basophils % 0.7, Nucleated RBC % 0.0, Absolute Neutrophils 8.48 H, Absolute Lymphocytes 3.70 H, Absolute Monocytes 0.96 H, Absolute Eosinophils 0.13, Absolute Basophils 0.09, RBC Morphology See Below, Microcytosis 2+, Sodium 139 D, Potassium 3.8, Chloride 100, Carbon Dioxide 30.7, Anion Gap 8.3, BUN 15, Creatinine 0.9, Est GFR (CKD-EPI 2020) 79.85, Glucose 283 H, Calcium 9.5 01/16/25 : Add-On Test Request DONE 01/16/25 18:43: VBG Lactate 1.4, Glucose 469 H, C-Reactive Protein 16.42 H 01/16/25 13:12: WBC 15.38 H, RBC 5.87 H, Hgb 13.2, Hct 42.9, MCV 73 L, MCH 22.5 L, MCHC 30.8 L, RDW 18.6 H, Plt Count 293, MPV , Immature Gran % 0.6, Neutrophils % 77.8, Lymphocytes % 13.5, Monocytes % 6.9, Eosinophils % 0.8, Basophils % 0.4, Nucleated RBC % 0.0, Absolute Neutrophils 11.97 H, Absolute Lymphocytes 2.08, Absolute Monocytes 1.06 H, Absolute Eosinophils 0.12, Absolute Basophils 0.06, RBC Morphology See Below, Hypochromasia 1+, Anisocytosis 1+, Microcytosis 2+, VBG Lactate 2.3 H*, Sodium 129 L, Potassium 4.5, Chloride 93 L, Carbon Dioxide 28.4, Anion Gap 7.6, BUN 22 H, Creatinine 1.3 H, Est GFR (CKD-EPI 2020) 51.36, Glucose 627 H*, Hemoglobin A1c 13.0 H, Calcium 9.5, Total Bilirubin 0.4, AST 15, ALT 17, Alkaline Phosphatase 198 H, Total Protein 7.5, Albumin 3.0 L, Procalcitonin 0.39 PFSH All Active Problems (Updated 01/17/25 @ 10:42 by Halima Clay NP) Sepsis without septic shock (Acute) Diabetic foot ulcer (Acute) Cellulitis of left lower extremity (Acute) Chest pain (Acute) Orthopnea (Acute) Edema of both lower legs (Acute) l>r .. chf? INACTIVITY? Myocardial infarction acute (Acute) Fatty infiltration of liver (Acute) Hx cirrhosis? 2' pancreatitis (05/2024)? Elevated troponin level not due myocardial infarction (Acute ~05/2024) ?type 2 ACS Acute postoperative abdominal pain (Acute) Diabetic ketoacidosis (Acute ~05/2024) Corneal abrasion (Acute) Obstructive sleep apnea of adult (Acute) [facility] 12/23/23 Muscle spasm of left lower extremity (Acute) Muscle spasm of back (Acute) Diabetic cataract of right eye (Acute) Ulcer of right foot limited to breakdown of skin (Acute 04/16/23) [facility] Ulcer of left foot, limited to breakdown of skin (Acute 04/16/23) [facility] Pod[facility] Iron deficiency (Acute) 03/2023 iron studies indicating deficiency (NOT anemic) Migraine (Chronic) [facility] Chronic constipation (Chronic) [facility] Type 2 diabetes mellitus, with long-term current use of insulin (Chronic) With neuropathy & retinopathy (left, mild) Obesity (Chronic) Cirrhosis of liver (Chronic) [facility] Diabetic neuropathy (Acute) Asthma (Chronic) Tobacco use disorder (Chronic) Started smoking age 9 Poorly controlled type 2 diabetes mellitus (Chronic 03/23/18) Polypharmacy (Chronic 12/14/15) Mild nonproliferative diabetic retinopathy associated with type 2 diabetes mellitus (Chronic 01/22/16) Mental health disorder (Chronic) Pt reports being diagnosed with bipolar disorder, disassociative disorder, anxiety, & multiple personality disorder Hypomagnesemia (Chronic 09/30/16) Hyperlipidemia (Chronic 09/30/16) 10-year ASCVD risk = unable to calculate due to not being age 40+ however dx T2DM, so Rx for statin 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 [facility] 2023: [facility] Depressive disorder (Chronic 10/31/14) ADMISSION SUICIDAL THOUGHTS 06/13/14 OD ATTEMPTS IN PAST Chronic nausea (Chronic) EGD 04/16/16 Dr. 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) Medical History DKA (diabetic ketoacidosis) Acute gallstone pancreatitis Acute pancreatitis Opioid use disorder MAT with methadone Chronic fatigue (07/19/15) Osteomyelitis Dyspareunia in female (07/09/17) Punctate keratitis of both eyes Ulcer of foot due to secondary diabetes Umbilical hernia (03/11/18) 03/17/2018: [facility] Premature surgical menopause JAD/BSO in late 20s, no HRT Hepatitis C 02/14/2016 labwork: undetectable RNA level Surgical History S/P cholecystectomy (06/12/24) Dr Reyes Status post total hysterectomy and bilateral salpingo-oophorectomy (~2006) noncancerous reasons Status post left foot surgery (10/2022) Left fourth metatarsal head excision for chronic ulcer, osteomyelitis ([facility]/Tamia Vidales, DPM) Status post section (~2003) EGD (04/16/16) Dr. Ferrer Family History Mother , 46yo due to kidney & liver failure due to alcohol Substance use disorder Alcohol use disorder Father , 62yo from ALS Substance use disorder Alcohol use disorder ALS (amyotrophic lateral sclerosis) Grandmother Colon cancer Paternal Paternal Uncle Cardiac arrest Substance use disorder Alcohol and Pain Medication Abuse Social History Smoking/Tobacco Use Status: Current every day Tobacco Type: cigarettes Smoking packs per day: 1 Smoking cigarettes per day: 20.0 Years smoked: 34 Smoking pack- years: 34.00 Tobacco: How many years used: 33 Quit status: considering quitting Smoking risk assessment performed?: Yes Alcohol Intake: never Drug use: Occasionally Substance use type: former substance user and marijuana Details: Pt. 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 Pets and animals: Yes (1 dog, 4 cats) Pets and animals: cat(s) and dog(s) Sexually active: Yes Do you think of yourself as: straight/heterosexual Current gender identity: female Other: 09/2022: pt reports she is engaged What is your relationship status?: How often do you talk on the phone with friends or family?: three or more times per week How often do you get together with friends or relatives?: once per week How often do you attend druze or mandaen services?: decline to answer Do you belong to any clubs or organized social groups?: no Panel score (0-1 are the most socially isolated patients): 2 What type of physical activity do you participate in: none Duration: decline to answer Frequency: decline to answer Seatbelt use: always Helmet use: No (No reason to wear one) Drive intox or ride w/intox trencher 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 Time Spent with Patient Time Spent with Patient: 45-69 minutes Time was spent: preparing to see the patient(eg.review tests), obtaining and/or reviewing separately otained hiistory, ordering medications,tests, procedures, indepentently interpreting results and counseling the patient
[2025-01-17] MEDS: Amphet Asp/Amphet/D-Amphet 10 MG TAB 30 MG PO (11:36)
--- NOTE | 2025-01-17 15:15 | TELEFU_ITS ---
Date of service: 01/17/25 Time of Service: 10:00 Nutrition Note NOTE: Received request for diabetes education/mgt consultation. Pt is 44yo female being treated for Cellulitis of left leg, sepsis, DMII with skilled nursing insulin use. Hx of LESLIE, HLD, depression. A1C was 13.0 yesterday. has been >9.0 since 2023. ordered for 10-15u novolog at meals at home and 120u insulin degludec HS. Has CGM. Current tobacco use. Received consult over the weekend and pt is discharging today - visited briefly to introduce myself and offer outpatient services for help with glucose mgt. Pt states she has a sweet tooth that acts as a barrier. We reviewed added sugar recs and how they can fit into a healthy diet. Encouraged pt to call to get more detailed support for her specific nutrition needs. Said she would call to arrange once home and has a little more time to recover. Will remain available. Time Spent in Nutritional Counseling and Treatment: 10 min
== END 2025-01-17 12:50 | disposition home or self-care (01) | DRG 872 ==
LOC: ER 14:54 → MS 17:51
PROVIDERS: Admitting Provider Family Medicine; Emergency Provider Registered Nurse Emergency; PCP Internal Medicine; Responsible Provider Nurse Practitioner Acute Care; Visit Provider Family Medicine
DX: A41.9 Sepsis, unspecified organism (principal); L03.116 Cellulitis of left lower limb; F11.20 Opioid dependence, uncomplicated; E87.20 Acidosis, unspecified; E11.65 Type 2 diabetes mellitus with hyperglycemia; Z79.4 Long term (current) use of insulin; F32.A Depression, unspecified; G47.33 Obstructive sleep apnea (adult) (pediatric); E78.5 Hyperlipidemia, unspecified; R60.0 Localized edema; I25.2 Old myocardial infarction; G43.909 Migraine, unspecified, not intractable, without status migrainosus; E66.9 Obesity, unspecified; E11.40 Type 2 diabetes mellitus with diabetic neuropathy, unspecified; F17.210 Nicotine dependence, cigarettes, uncomplicated; J45.909 Unspecified asthma, uncomplicated; Z79.899 Other long term (current) drug therapy; E83.42 Hypomagnesemia; B00.9 Herpesviral infection, unspecified; E11.3299 Type 2 diabetes mellitus with mild nonproliferative diabetic retinopathy without macular edema, unspecified eye; K59.09 Other constipation; K74.60 Unspecified cirrhosis of liver; Z68.38 Body mass index [BMI] 38.0-38.9, adult
CPT/HCPCS: 00123; 36415; 36416; 73552; 73562; 80048; 80053; 82947; 82962; 84145; 94640; 96365; 96366; 96375; 99285; J1650; 70450; 73590; 73630; 83036; 83605; 85025; 86140; 94664; 99223; 99239; J0690; J1815; J1885; J2405; J3490

== ENCOUNTER 2025-02-01 18:57 | Emergency (ER) | payer OTHER, SELFPAY ==
[2025-02-01] VITALS (7 sets, daily range): BP systolic 147; BP diastolic 82; PULSE 66–78; RESP 11–18; TEMP 36.7; O2SAT 90–97
--- NOTE | 2025-02-01 19:00 | DI.CT_ITS ---
Exam(s) CT BRAIN NECK CTA EXAM: CT BRAIN NECK CTA CLINICAL HISTORY: L. arm numbness, c/f CVA. TECHNIQUE: Imaging Protocol: Axial CT angiography was performed with multi-slice acquisition and mu lti-planar and/or 3D reconstructions. CONTRAST MATERIAL: Intravenous: Omnipaque 350 contrast volume:100 mL COMPARISON: CT CT HEAD WO from 01/12/[address] HEAD WO from 06/14/[address] ORBITS W from 10/03/[address] HEAD WO from 11/02/[address] HEAD WO from 01/16/2025 FINDINGS: CT Head W/O and W: Ventricles and Extra axial spaces: Normal in size and morphology for the patient's age. Hemorrhage: None. Cerebral parenchyma: Dense of an acute territorial infarct. No mass effect. Midline shift: None. Brainstem/Cerebellum: Normal. Calvarium: Normal. Visualized Paranasal sinuses/Mastoids: Clear. Soft Tissues: Unremarkable. Enhancement: Unremarkable. CTA Neck W: Common Carotid: Right: No dissection, occlusion or significant stenosis. Left: No dissection, occlusion or significant stenosis. External Carotid: Right: No occlusion or significant stenosis. Left: No occlusion or significant stenosis. Internal Carotid: Right: No dissection, occlusion or significant stenosis. Left: No dissection, occlusion or significant stenosis. Vertebral Artery: Right: No dissection, occlusion or significant stenosis. Left: No dissection, occlusion or significant stenosis. Lung Apices: Normal. Bones: Within normal limits for the patient's age. Soft Tissues: Normal. Thyroid gland: Unremarkable. CTA Brain W: Internal Carotid Arteries: No evidence of an aneurysm, occlusion or significant stenosis. Anterior Cerebral Arteries: Right: No aneurysm, occlusion or significant stenosis. Left: No aneurysm, occlusion or significant stenosis. Middle Cerebral Arteries: Right: No aneurysm, occlusion or significant stenosis. Left: No aneurysm, occlusion or significant stenosis. Posterior Cerebral Arteries: The right posterior cerebral artery arises from the posterior communicat ing artery which is a normal variant. Right: No aneurysm, occlusion or significant stenosis. Left: No aneurysm, occlusion or significant stenosis. Vertebral Arteries: Right: No aneurysm, occlusion or significant stenosis. Left: No aneurysm, occlusion or significant stenosis. Basilar Artery: No aneurysm, occlusion or significant stenosis. IMPRESSION: 1. No large vessel occlusion or significant stenosis on the CT angiography of the head. 2. No acute intracranial process. 3. No occlusion or significant stenosis on the CT angiography of the neck. 4. The preliminary [facility] report was reviewed. RADIATION DOSE DELIVERED: 2,348.45mGy.cm Total DLP DATA REPOSITORY: All CT scans at this facility are submitted to the National Radiology Data Registry (NRDR) Dose Index Registry (DIR) with the [employer] (A[employer]). RADIATION OPTIMIZATION: All CT scans at this facility use at least one of these dose optimization te chniques: automated exposure control; mA and/or kV adjustment per patient size (includes targeted exa ms where dose is matched to clinical indication); or iterative reconstruction.
[2025-02-01 19:31] LABS: BE (Venous) 4 mmol/L (-2-3); HCO3 (Venous) 30 mmol/L (23-28); O2 Sat (Venous) 72 %; TCO2 (Venous) 28 mmol/L (24-29); pCO2 (Venous) 60 mmHg (41-51); pH (Venous) 7.32 (7.31-7.41); pO2 (Venous) 37 mmHg
[2025-02-01 19:32] LABS: Abs Immature Grans 0.08 10^3/uL (0.0-0.06); Absolute Eosinophil Count 0.18 10^3/uL (0.0-0.7); Absolute Lymphocyte Count 4.49 10^3/uL (1.2-3.4); Absolute Monocyte Count 0.78 10^3/uL (0.1-0.8); Absolute Neutrophil Count 6.95 10^3/uL (1.2-6.7); Basophils % 0.6 %; Eosinophils % 1.4 %; HCT 42.8 % (36.0-46.0); HGB 13.1 g/dL (11.2-15.7); Immature Grans % 0.6 %; Lymphocytes % 35.8 %; MCH 22.1 pg (27.0-33.0); MCHC 30.6 % (32.0-36.0); MCV 72 fL (80-95); MPV 10.6 fL (8.0-11.0); Monocytes % 6.2 %; Neutrophils % 55.4 %; Platelet Count 352 10^3/uL (130-400); RBC 5.93 10^6/uL (3.93-5.22); RDW 18.8 % (11.7-14.6); RDW-SD 46.2 fL; WBC 12.55 10^3/uL (4.4-10.8)
[2025-02-01] MEDS: Normal Saline - Diluent 50 ML VIAL IJ (19:33)
[2025-02-01] MEDS: Omnipaque 350 MG/ML 100 ML BTL IJ (19:34)
[2025-02-01 19:35] LABS: Absolute Basophil Count 0.08 10^3/uL (0.0-0.2)
--- NOTE | 2025-02-01 19:58 | DI.VRAD_ITS ---
PROCEDURE INFORMATION: Exam: CTA Head Without And With Contrast, Arteriography Exam date and time: 02/01/2025 7:21 PM Age: 44 years old Clinical indication: Stroke-like symptoms; Altered mental status/memory loss; Left facial droop; Left upper extremity numbness/paresthesia TECHNIQUE: Imaging protocol: Computed tomographic angiography of the head without and with contrast. Exam focused on the arteries. 3D rendering (Not supervised by radiologist): MIP and/or 3D reconstructed images were created by the technologist. Contrast material: 350; Contrast volume: 100 ml; Contrast route: INTRAVENOUS (IV); Other technique: STROKE PROTOCOL was implemented. COMPARISON: CT HEAD WO 01/16/2025 1:23 PM FINDINGS: ANTERIOR CIRCULATION: Right internal carotid artery: Intracranial segment is patent with no significant stenosis or occlusion. No aneurysm. Right middle cerebral artery: No occlusion or significant stenosis. No aneurysm. Right anterior cerebral artery: No occlusion or significant stenosis. No aneurysm. Left internal carotid artery: Intracranial segment is patent with no significant stenosis. No aneurysm. Left middle cerebral artery: No occlusion or significant stenosis. No aneurysm. Left anterior cerebral artery: No occlusion or significant stenosis. No aneurysm. POSTERIOR CIRCULATION: Right vertebral artery: No occlusion or significant stenosis. No aneurysm. Left vertebral artery: No occlusion or significant stenosis. No aneurysm. Basilar artery: No occlusion or significant stenosis. No aneurysm. Right posterior cerebral artery: No occlusion or significant stenosis. No aneurysm. Left posterior cerebral artery: No occlusion or significant stenosis. No aneurysm. HEAD: Brain: Normal. No hemorrhage. Unremarkable white matter. No mass effect. Cerebral ventricles: Normal. No ventriculomegaly. Bones: Unremarkable. No acute fracture. Paranasal sinuses: Visualized sinuses are normal. No fluid levels. Mastoid air cells: Visualized mastoids are normal. No mastoid effusion. Soft tissues: Unremarkable. Bilateral cataract surgery. IMPRESSION: 1. No large vessel occlusion. 2. Unremarkable CT head. ASSESSMENT: ASPECTS ([place] Stroke Program Early CT Score) is 10. PROCEDURE INFORMATION: Exam: CTA Neck Without And With Contrast Exam date and time: 02/01/2025 7:21 PM Age: 44 years old Clinical indication: Stroke-like symptoms; Altered mental status/memory loss; Left facial droop; Left upper extremity numbness/paresthesia TECHNIQUE: Imaging protocol: Computed tomographic angiography of the neck without and with contrast. Exam focused on the cervical segments of the vasculature. 3D rendering (Not supervised by radiologist): MIP and/or 3D reconstructed images were created by the technologist. Contrast material: 350; Contrast volume: 100 ml; Contrast route: INTRAVENOUS (IV); COMPARISON: CT HEAD WO 01/16/2025 1:23 PM FINDINGS: Right common carotid artery: No stenosis. No dissection or occlusion. Right internal carotid artery: No stenosis of the extracranial segment. No dissection or occlusion. Right external carotid artery: No occlusion or stenosis of the origin. Left common carotid artery: No stenosis. No dissection or occlusion. Left internal carotid artery: No stenosis of the extracranial segment. No dissection or occlusion. Left external carotid artery: No occlusion or stenosis of the origin. Right vertebral artery: No stenosis. No dissection or occlusion. Left vertebral artery: No stenosis. No dissection or occlusion. Soft tissues: Normal. No significant soft tissue swelling. Bones/joints: No acute fracture. Other findings: Retropharyngeal course of bilateral common carotid arteries. IMPRESSION: No stenosis or occlusion. REFERENCES: NASCET CRITERIA. The degree of stenosis in the cervical segment of the internal carotid artery is based on NASCET criteria. Normal is no stenosis. Mild is less than 50% stenosis. Moderate is 50-69% stenosis. Severe is 70% to 99% stenosis. Total occlusion is no detectable patent lumen. Dictated and Authenticated by: Hong Hopkins MD. Orderin [facility] Dwight Louise MD
[2025-02-01 20:03] LABS: Prothrombin Time 9.8 sec (9.1-11.1)
[2025-02-01 20:05] LABS: Diff Comment RBC Morph Reviewed; Microcytosis 1+
[2025-02-01 20:08] LABS: Bilirubin Negative (Negative); Blood Negative (Negative); Clarity Clear (Clear); Glucose Negative (Negative); Ketones Trace mg/dL (Negative); Leukocyte Esterase Negative (Negative); Nitrite Negative (Negative); Urobilinogen 0.2 mg/dL (Up to 0.2); pH 5.5 (5-8)
--- NOTE | 2025-02-01 20:09 | ED.GENADUL_ITS ---
Discharge Plan Disposition Patient Disposition: Against Medical Advice Condition: Stable Discharge Details Clinical Impression: Acute confusion, Arm paresthesia, left Primary Care Provider: Kevin Lehman ED Provider: Aspen Perry Home Meds and New Rx's Prescriptions: No Action metoclopramide HCl 10 mg tablet 10 mg PO .tid ac Rx Instructions: administer 30 minutes before meals ondansetron 8 mg tablet,disintegrating 8 mg PO BID PRN (Reason: nausea and vomiting) Qty: 60 11RF ipratropium-albuterol 0.5 mg-3 mg(2.5 mg base)/3 mL solution for nebulization 3 ml inhalation QID PRN (Reason: wheezing) Qty: 180 1RF Rx Instructions: During asthma exacerbation, may use preventatively TID, titrating down to QID PRN as wheeze & SOB improve. atorvastatin 80 mg tablet 80 mg PO DAILY Qty: 90 3RF (DME) Dexcom G6 Sensor Device See Rx Instructions .ROUTE .COMPLEX Qty: 3 6RF Dose Instruction: USE DIRECTED Rx Instructions: USE DIRECTED methadone [Methadone Intensol] 10 mg/mL concentrate 77 mg PO DAILY naloxone [Narcan] 4 mg/actuation spray,non-aerosol 4 mg intranasal Q2M PRN (Reason: opioid overdose) Qty: 2 0RF Rx Instructions: spray 1 dose into ONE nostril; alternate nostrils w each dose until help arrives (DME) Dexcom G6 Transmitter Device See Rx Instructions .Route Qty: 3 3RF Rx Instructions: As directed pregabalin 200 mg capsule 200 mg PO TID Qty: 90 3RF Patient Comments: -- Pt states she is taking both pregabalin and gabapentin (DME) foam pillow triangular See Rx Instructions .Route .MEDSUPPLY Qty: 1 0RF Rx Instructions: Trial sleeping & resting (legs need elevation) @ 30-40' angle to alleviate SOB/Panic (DME) pen needle, diabetic [BD Ultra-Fine Yamini Pen Needle] 32 gauge x 5/32 needle See Rx Instructions .ROUTE .COMPLEX Qty: 100 0RF Dose Instruction: USE TO ADMINISTER INSULIN ONCE DAILY Rx Instructions: USE TO ADMINISTER INSULIN ONCE DAILY (DME) blood-glucose meter Misc See Rx Instructions .Route Qty: 1 0RF Rx Instructions: One Touch meter (DME) lancets Misc See Rx Instructions .ROUTE .MEDSUPPLY Qty: 400 3RF Rx Instructions: As directed to check blood glucose four times daily. On insulin. Dispense one touch ultra (DME) Blood Glucose Test Strip See Rx Instructions .MEDSUPPLY Qty: 400 3RF Rx Instructions: As directed to check blood glucose four times daily. On insulin. Dispense one touch ultra magnesium oxide 400 mg (241.3 mg magnesium) tablet 400 mg PO BID Qty: 180 0RF nystatin 100,000 unit/gram powder 1 applic Topical BID PRN (Reason: fungal skin infection) Qty: 30 3RF Rx Instructions: Apply powder to affected area under R breast twice daily insulin degludec [Tresiba FlexTouch U-100] 100 unit/mL (3 mL) insulin pen 120 unit subcut QHS Patient Comments: takes more than rx'd due to blood sugars being high polyethylene glycol 3350 [Miralax] 17 gram/dose powder 17 g PO DAILY PRN (Reason: constipation/gastroparesis) Qty: 238 0RF Ajovy Autoinjector 225 mg/1.5 mL auto-injector 225 mg subcut QMONTH Patient Comments: Pt has missed the last 2 months Botox 100 unit recon soln 300 unit IM ONCE Patient Comments: -- Pt's last dose was 3 months ago, next dose due anytime Rx Instructions: divided among affected muscles clonidine HCl 0.1 mg tablet 0.1 mg PO TID lurasidone 80 mg tablet 40 mg PO DAILY Patient Comments: TAKE ONE TABLET BY MOUTH EVERY DAY WITH AT LEAST 350 CALORIES furosemide 20 mg tablet 20 mg PO QAM metoprolol succinate 100 mg tablet extended release 24 hr 100 mg PO DAILY acyclovir 800 mg tablet 800 mg PO DAILY hydroxyzine pamoate 50 mg capsule 50 mg PO BID Patient Comments: TAKE ONE CAPSULE BY MOUTH TWICE A DAY dextroamphetamine-amphetamine 30 mg tablet 30 mg PO BID Patient Comments: TAKE ONE TABLET BY MOUTH TWICE A DAY @ 5am, 11am olmesartan 20 mg tablet 20 mg PO DAILY valacyclovir 1 gram tablet 1,000 mg PO DAILY PRN (Reason: for flares) Patient Comments: TAKE ONE TABLET BY MOUTH EVERY DAY prn flares sumatriptan succinate 100 mg tablet 100 mg PO QDAY PRN (Reason: migraine headache) Patient Comments: TAKE ONE TABLET BY MOUTH ONCE NEEDED FOR MIGRAINE HEADACHE A SECOND DOSE CAN BE TAKEN IF NO REPSONSE AFTER 2 HOURS MAXIMUM DAILY DOSE = 2 methocarbamol 500 mg tablet 500 mg PO HS PRN (Reason: muscle spasm) Rx Instructions: Use lowest effective dose for shortest duration for muscle spasm omeprazole 40 mg capsule,delayed release(DR/EC) 40 mg PO BID acetaminophen 500 mg tablet 1,000 mg PO Q6H MDD 3000 mg PRN (Reason: fever or pain) Rx Instructions: 1 month supply lorazepam 0.5 mg tablet 0.5 mg PO DAILY PRN (Reason: dyspnea) Rx Instructions: Short term increase to BID PRN panic or shortness of breath orally daily PRN; (FYI to Prescriber @ [facility]) gabapentin 300 mg capsule 300 mg PO HS Patient Comments: -- Pt states she is taking both pregabalin and gabapentin albuterol sulfate 90 mcg/actuation HFA aerosol inhaler 2 puff Inhalation Q4H PRN (Reason: shortness of breath or wheezing) Rx Instructions: DISPENSE ALBUTEROL INHALER BRAND COVERED BY INSURANCE insulin aspart U-100 [Novolog FlexPen U-100 Insulin] 100 unit/mL (3 mL) insulin pen 10 - 15 unit subcut AC Rx Instructions: -- Pt uses 10-15 units sliding scale before meals Gvoke HypoPen 2-Pack 1 mg/0.2 mL auto-injector 1 mg subcut ONCE PRN (Reason: per hypoglycemic protocol) Rx Instructions: HYPOGLYCEMIA; as a single dose; may repeat once after 15 minutes if no response Natural Tears (PF) 0.1-0.3 % dropperette 1 drp ophthalmic (eye) QID PRN doxycycline hyclate 100 mg capsule 100 mg PO BID Qty: 14 0RF cephalexin 500 mg capsule 500 mg PO QID Qty: 28 0RF Discharge Instructions Instructions: Paresthesia (DC) Additional Instructions: You were seen in the emergency department today for an episode of confusion, left hand numbness, and vision changes. In our department you do full physical examination performed, had a CT scan of your brain that was reassuring and had laboratory studies that did not show a reason for your symptoms tonight. As we discussed, it is certainly possible that you are experiencing an episode of low blood sugar. However, some of your symptoms may be caused by stroke or other abnormality in the brain, and at this time you have chosen to leave the hospital AGAINST MEDICAL ADVICE prior to discussing your symptoms with the neurologist. You understand the risks of not discussing this case with the neurologist, as well as the benefits of staying in the hospital which include diagnostic clarity and improvement in symptoms in the long-term. I do recommend that you return to the emergency department if you desire reevaluation or you have recurrence or worsening of your symptoms. Additionally, you need to follow-up with your primary care provider in the next few days to discuss this visit and any symptoms that change, worsen, or persist. Thank you for allowing us to be part of your care. HPI General Mode of arrival: ambulatory . Date/Time Provider Initiated Documentation: 02/01/25 18:57 . Limitations to Documentation: no limitations . Information obtained by: patient, family and old records reviewed . HPI Narrative: This is a 44-year-old female patient with a past medical history significant for insulin-dependent diabetes, LESLIE, migraine, liver cirrhosis, and hyperlipidemia who is presenting for evaluation of headache, left hand numbness, and confusion/lightheadedness. The patient reports that 1 hour ago, at 1800, she was at the grocery store she began to feel like her vision was blurry. She felt very lightheaded and unwell, and states that her left hand felt funny. Her family member thought that her speech sounded different and that she had some slight drooping of the left side of her face compared to her baseline. The patient checked her blood glucose, which was 103. She did drink some orange juice prior to arrival in case her sugar was low. She states that her Dexcom has been off for the last 2 days while waiting for replacement, states that she took her long-acting insulin but not her short acting today. She has been otherwise in her normal state of health other than a migraine for the last few days that has not responded to Tylenol or home medications. The patient's family member said that he noticed that she was unable to read the signs on the daily when this incident occurred, which is atypical for her. No falls or injuries, otherwise no changes to her health. Related Data Home Medications ?Medication ?Instructions ?Recorded ?Confirmed pen needle, diabetic 32 gauge x #100 ea 06/30/23 01/16/25 (BD Ultra-Fine Yamini Pen Needle) blood-glucose meter #1 ea 08/28/23 01/16/25 lancets #400 ea 08/28/23 01/16/25 naloxone 4 mg/actuation nasal 4 mg intranasal Q2M PRN opioid 02/13/24 02/01/25 spray (Narcan) overdose #2 ea blood sugar diagnostic (Blood #400 ea 04/26/24 01/16/25 Glucose Test strips) magnesium oxide 400 mg (241.3 mg 400 mg PO BID #180 tabs 04/26/24 02/01/25 magnesium) tablet nystatin 100,000 unit/gram topical 1 applic topical BID PRN fungal 05/25/24 02/01/25 powder skin infection #30 grams ipratropium 0.5 mg-albuterol 3 mg 3 ml inhalation QID PRN wheezing 05/31/24 02/01/25 (2.5 mg base)/3 mL nebulization #180 mL soln metoclopramide HCl 10 mg tablet 10 mg PO .tid ac 05/31/24 02/01/25 ondansetron 8 mg disintegrating 8 mg PO BID PRN nausea and 05/31/24 02/01/25 tablet vomiting #60 tabs fremanezumab-vfrm 225 mg/1.5 mL 225 mg subcut QMONTH 06/07/24 02/01/25 subcutaneous auto-injector (Ajovy) onabotulinumtoxinA 100 unit 300 unit IM ONCE 06/07/24 02/01/25 solution for injection (Botox) lurasidone 80 mg tablet 40 mg PO DAILY 06/08/24 02/01/25 atorvastatin 80 mg tablet 80 mg PO DAILY #90 tabs 06/23/24 02/01/25 blood-glucose sensor (Dexcom G6 #3 ea 06/23/24 01/16/25 Sensor device) methadone 10 mg/mL oral 77 mg PO DAILY 06/23/24 02/01/25 concentrate (Methadone Intensol) blood-glucose transmitter (Dexcom #3 ea 07/07/24 01/16/25 G6 Transmitter device) foam pillow #1 ea 07/07/24 01/16/25 pregabalin 200 mg capsule 200 mg PO TID #90 caps 07/07/24 02/01/25 insulin degludec 100 unit/mL (3 120 unit subcut QHS 07/13/24 02/01/25 mL) subcutaneous pen (Tresiba FlexTouch U-100 insulin) polyethylene glycol 3350 17 17 g PO DAILY PRN 08/02/24 02/01/25 gram/dose oral powder (Miralax) constipation/gastroparesis #238 grams clonidine HCl 0.1 mg tablet 0.1 mg PO TID 09/19/24 02/01/25 acetaminophen 500 mg tablet 1,000 mg PO Q6H PRN fever or pain 01/16/25 02/01/25 acyclovir 800 mg tablet 800 mg PO DAILY 01/16/25 02/01/25 albuterol sulfate 90 mcg/actuation 2 puff inhalation Q4H PRN 01/16/25 02/01/25 aerosol inhaler shortness of breath or wheezing dextran 70-hypromellose (PF) 0.1 1 drp ophthalmic (eye) QID PRN 01/16/25 02/01/25 %-0.3 % eye drops in a dropperette (Natural Tears (PF)) dextroamphetamine-amphetamine 30 30 mg PO BID 01/16/25 02/01/25 mg tablet furosemide 20 mg tablet 20 mg PO QAM 01/16/25 02/01/25 gabapentin 300 mg capsule 300 mg PO HS back pain 01/16/25 02/01/25 glucagon 1 mg/0.2 mL subcutaneous 1 mg subcut ONCE PRN per 01/16/25 02/01/25 auto-injector (Gvoke HypoPen hypoglycemic protocol 2-Pack) hydroxyzine pamoate 50 mg capsule 50 mg PO BID 01/16/25 02/01/25 insulin aspart U-100 100 unit/mL 10 - 15 unit subcut AC 01/16/25 02/01/25 (3 mL) subcutaneous pen (Novolog FlexPen U-100 Insulin aspart) lorazepam 0.5 mg tablet 0.5 mg PO DAILY PRN dyspnea 01/16/25 02/01/25 methocarbamol 500 mg tablet 500 mg PO HS PRN muscle spasm 01/16/25 02/01/25 metoprolol succinate 100 mg 100 mg PO DAILY 01/16/25 02/01/25 tablet,extended release 24 hr olmesartan 20 mg tablet 20 mg PO DAILY 01/16/25 02/01/25 omeprazole 40 mg capsule,delayed 40 mg PO BID 01/16/25 02/01/25 release sumatriptan succinate 100 mg tablet 100 mg PO QDAY PRN migraine 01/16/25 02/01/25 headache valacyclovir 1 gram tablet 1,000 mg PO DAILY PRN for flares 01/16/25 02/01/25 cephalexin 500 mg capsule 500 mg PO QID #28 caps 01/17/25 02/01/25 doxycycline hyclate 100 mg capsule 100 mg PO BID #14 caps 01/17/25 02/01/25 Previous Rx's ?Medication ?Instructions ?Recorded pen needle, diabetic 32 gauge x #100 ea 06/30/23 (BD Ultra-Fine Yamini Pen Needle) blood-glucose meter #1 ea 08/28/23 lancets #400 ea 08/28/23 naloxone 4 mg/actuation nasal 4 mg intranasal Q2M PRN opioid 02/13/24 spray (Narcan) overdose #2 ea blood sugar diagnostic (Blood #400 ea 04/26/24 Glucose Test strips) magnesium oxide 400 mg (241.3 mg 400 mg PO BID #180 tabs 04/26/24 magnesium) tablet nystatin 100,000 unit/gram topical 1 applic topical BID PRN fungal 05/25/24 powder skin infection #30 grams ipratropium 0.5 mg-albuterol 3 mg 3 ml inhalation QID PRN wheezing 05/31/24 (2.5 mg base)/3 mL nebulization #180 mL soln ondansetron 8 mg disintegrating 8 mg PO BID PRN nausea and 05/31/24 tablet vomiting #60 tabs atorvastatin 80 mg tablet 80 mg PO DAILY #90 tabs 06/23/24 blood-glucose sensor (Dexcom G6 #3 ea 06/23/24 Sensor device) blood-glucose transmitter (Dexcom #3 ea 07/07/24 G6 Transmitter device) foam pillow #1 ea 07/07/24 pregabalin 200 mg capsule 200 mg PO TID #90 caps 07/07/24 polyethylene glycol 3350 17 17 g PO DAILY PRN 08/02/24 gram/dose oral powder (Miralax) constipation/gastroparesis #238 grams cephalexin 500 mg capsule 500 mg PO QID #28 caps 01/17/25 doxycycline hyclate 100 mg capsule 100 mg PO BID #14 caps 01/17/25 Allergies Allergy/AdvReac Type Severity Reaction Status Date / Time Penicillins Allergy Severe lip and Verified 02/01/25 19:11 facial swelling lamotrigine (From Lamictal) Allergy Unknown Skin Rash Verified 02/01/25 19:11 clindamycin AdvReac Severe Nausea & Verified 02/01/25 19:11 vomiting aspirin AdvReac Intermediate nausea/pain Verified 02/01/25 19:11 General Stated Complaint: AMS/LOC CARLOS: 2 Exam Narrative Exam Narrative: Gen: awake and alert, in no apparent distress. Appears well nourished. HEENT: PERRL, EOMs full and without nystagmus. External ears and nose normal, mucous membranes moist. Neck: Supple, full range of motion, no observable masses Lungs: No increased work of breathing CV: Heart with regular rate and rhythm. Strong and symmetrical radial pulses. Abdomen: Soft, nondistended, non-tender to palpation. No rigidity, rebound tenderness, or guarding. MSK: No joint swelling, no redness. Full ROM without limitation, no external traumatic findings. Skin: No rashes or lesions to visualized skin. Normal color, warm, and dry. Neuro: Cranial nerves II-XII intact and symmetrical bilaterally. 5/5 strength in all muscle groups x4 extremities. No sensory deficits at this time, left hand numbness has resolved. No pronator drift, slightly slurred speech. Psych: Appropriate for situation. Course Vital Signs Vital signs: Vital Signs Temperature 36.7 C 02/01/25 19:04 Pulse 78 02/01/25 19:04 Respiratory Rate 16 02/01/25 19:04 Blood Pressure 147/82 H 02/01/25 19:04 Pulse Oximetry 90 L 02/01/25 19:04 Temperature 36.7 C 02/01/25 19:04 Pulse 78 02/01/25 19:04 Respiratory Rate 18 02/01/25 19:12 Respiratory Effort Normal 02/01/25 19:12 Respiratory Depth Normal 02/01/25 19:12 Respiratory Pattern Normal 02/01/25 19:12 Blood Pressure 147/82 H 02/01/25 19:04 Pulse Oximetry 90 L 02/01/25 19:04 Lab/Test Results Lab/Test Results: Laboratory Tests Range/Units 02/01/25 19:18 WBC (4.4-10.8) 10^3/uL 12.55 H RBC (3.93-5.22) 10^6/uL 5.93 H Hgb (11.2-15.7) g/dL 13.1 Hct (36.0-46.0) % 42.8 MCV (80-95) fL 72 L MCH (27.0-33.0) pg 22.1 L MCHC (32.0-36.0) % 30.6 L RDW (11.7-14.6) % 18.8 H Plt Count (130-400) 10^3/uL 352 MPV (8.0-11.0) fL 10.6 Immature Gran % % 0.6 Neutrophils % % 55.4 Lymphocytes % % 35.8 Monocytes % % 6.2 Eosinophils % % 1.4 Basophils % % 0.6 Nucleated RBC % (0.0-0.3) % 0.0 Absolute Neutrophils (1.2-6.7) 10^3/uL 6.95 H Absolute Lymphocytes (1.2-3.4) 10^3/uL 4.49 H Absolute Monocytes (0.1-0.8) 10^3/uL 0.78 Absolute Eosinophils (0.0-0.7) 10^3/uL 0.18 Absolute Basophils (0.0-0.2) 10^3/uL 0.08 RBC Morphology See Below Microcytosis 1+ VBG pH (7.31-7.41) 7.32 VBG pCO2 (41-51) mmHg 60 H VBG pO2 mmHg 37 VBG HCO3 (23-28) mmol/L 30 H VBG Total CO2 (24-29) mmol/L 28 VBG O2 Saturation % 72 VBG Base Excess (-2-3) mmol/L 4 H Medical Decision Making This is a 44-year-old female patient presenting for evaluation of 1 hour of confusion and vision changes, left hand numbness, and headache. Differential includes but is not limited to stroke, TIA, intracranial hemorrhage, atypical migraine, considered blood glucose abnormalities including hypoglycemia, hyperglycemia, diabetic ketoacidosis. Considered metabolic electrolyte derangements and kidney injury, anemia, dehydration. The patient has no fever or meningismus to increase my concern for meningitis. Given that this patient is within the tPA window, we did rapidly obtain a fingerstick blood glucose which was 103, obtain an IV and take the patient directly to CAT scan for CTA brain and neck. We will also obtain an EKG, and laboratory studies to include CBC, CMP, magnesium, troponin, INR, VBG, and urinalysis. -I reviewed the patient's CT scans, which shows no intracranial hemorrhage, evidence of stroke or infarct, or vascular abnormality. On reassessment the patient states that she is starting to feel much better, and her speech is clear. She has not had recurrence of her numb hand. I reviewed the patient's laboratory studies, which show a white blood cell count of 12.5 which is within the range of normal for this patient. She is not anemic or thrombocytopenic. INR 1.0, VBG without acidosis, the patient does have hypercarbia to 60, which has been demonstrated on studies in the past. She had a urinalysis with trace ketones and no evidence for infection, but in the absence of acidosis I have a low concern for diabetic ketoacidosis. She has no significant electrolyte derangement, BUN slightly elevated to 23 with no associated creatinine elevation, magnesium slightly low at 1.6, no significant elevation in liver enzymes, troponin negative and without delta change on 1 hour recheck. [facility] teleneurology was consulted to evaluate this patient. Unfortunately, prior to their evaluation, the patient reports that she does not want to stay in the hospital to wait for their evaluation, citing the fact that her symptoms were likely due to low blood glucose. I do agree that this is possibly the case, though certainly an acute neurologic event such as a TIA cannot be entirely ruled out. However, the patient has capacity to make this decision, understands the risks and benefits of leaving the hospital AMA, and understands that she can come back to receive ongoing care if she so chooses. She was amenable to signing her AMA form and left our hospital without further incident. Aspen Perry MD Medical Records Medical records reviewed: Yes I reviewed the patient's medical records. Lab Data Lab results reviewed: Yes I reviewed the patient's lab results. Quality:SDOH Health Related Social Needs: No Data to Display PFSH All Active Problems (Updated 02/01/25 @ 21:20 by Aspen Perry MD) Arm paresthesia, left (Acute) Acute confusion (Acute) Sepsis without septic shock (Acute) Diabetic foot ulcer (Acute) Cellulitis of left lower extremity (Acute) Chest pain (Acute) Orthopnea (Acute) Edema of both lower legs (Acute) l>r .. chf? INACTIVITY? Myocardial infarction acute (Acute) Fatty infiltration of liver (Acute) Hx cirrhosis? 2' pancreatitis (05/2024)? Elevated troponin level not due myocardial infarction (Acute ~05/2024) ?type 2 ACS Acute postoperative abdominal pain (Acute) Diabetic ketoacidosis (Acute ~05/2024) Corneal abrasion (Acute) Obstructive sleep apnea of adult (Acute) [facility] 12/23/23 Muscle spasm of left lower extremity (Acute) Muscle spasm of back (Acute) Diabetic cataract of right eye (Acute) Ulcer of right foot limited to breakdown of skin (Acute 04/16/23) [facility] Podiatry Ulcer of left foot, limited to breakdown of skin (Acute 04/16/23) [facility] Podiatry Iron deficiency (Acute) 03/2023 iron studies indicating deficiency (NOT anemic) Migraine (Chronic) [facility] Neuro Chronic constipation (Chronic) [facility] GI Type 2 diabetes mellitus, with long-term current use of insulin (Chronic) With neuropathy & retinopathy (left, mild) Obesity (Chronic) Cirrhosis of liver (Chronic) [facility] GI Diabetic neuropathy (Acute) Asthma (Chronic) Tobacco use disorder (Chronic) Started smoking age 9 Poorly controlled type 2 diabetes mellitus (Chronic 03/23/18) Polypharmacy (Chronic 12/14/15) Mild nonproliferative diabetic retinopathy associated with type 2 diabetes mellitus (Chronic 01/22/16) Mental health disorder (Chronic) Pt reports being diagnosed with bipolar disorder, disassociative disorder, anxiety, & multiple personality disorder Hypomagnesemia (Chronic 09/30/16) Hyperlipidemia (Chronic 09/30/16) 10-year ASCVD risk = unable to calculate due to not being age 40+ however dx T2DM, so Rx for statin 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 Jimenez [facility] 2023: [facility] GI Depressive disorder (Chronic 10/31/14) ADMISSION SUICIDAL THOUGHTS 06/13/14 OD ATTEMPTS IN PAST Chronic nausea (Chronic) EGD 04/16/16 Dr. 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) Medical History DKA (diabetic ketoacidosis) Acute gallstone pancreatitis Acute pancreatitis Opioid use disorder MAT with methadone Chronic fatigue (07/19/15) Osteomyelitis Dyspareunia in female (07/09/17) Punctate keratitis of both eyes Ulcer of foot due to secondary diabetes Umbilical hernia (03/11/18) 03/17/2018: [facility] GI Premature surgical menopause JAD/BSO in late 20s, no HRT Hepatitis C 02/14/2016 labwork: undetectable RNA level Surgical History S/P cholecystectomy (06/12/24) Dr Reyes Status post total hysterectomy and bilateral salpingo-oophorectomy (~2006) noncancerous reasons Status post left foot surgery (10/2022) Left fourth metatarsal head excision for chronic ulcer, osteomyelitis ([facility]/Tamia Stone, DPM) Status post section (~2003) EGD (04/16/16) Dr. Ferrer Family History Mother , 46yo due to kidney & liver failure due to alcohol Substance use disorder Alcohol use disorder Father , 62yo from ALS Substance use disorder Alcohol use disorder ALS (amyotrophic lateral sclerosis) Grandmother Colon cancer Paternal Paternal Uncle Cardiac arrest Substance use disorder Alcohol and Pain Medication Abuse Social History Smoking/Tobacco Use Status: Current every day Tobacco Type: cigarettes Smoking packs per day: 1 Smoking cigarettes per day: 20.0 Years smoked: 34 Smoking pack- years: 34.00 Tobacco: How many years used: 33 Quit status: considering quitting Smoking risk assessment performed?: Yes Alcohol Intake: never Drug use: Occasionally Substance use type: former substance user and marijuana Details: Pt. 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 Pets and animals: Yes (1 dog, 4 cats) Pets and animals: cat(s) and dog(s) Sexually active: Yes Do you think of yourself as: straight/heterosexual Current gender identity: female Other: 09/2022: pt reports she is engaged What is your relationship status?: How often do you talk on the phone with friends or family?: three or more times per week How often do you get together with friends or relatives?: once per week How often do you attend sabianism or orthodoxy services?: decline to answer Do you belong to any clubs or organized social groups?: no Panel score (0-1 are the most socially isolated patients): 2 What type of physical activity do you participate in: none Duration: decline to answer Frequency: decline to answer Seatbelt use: always Helmet use: No (No reason to wear one) Drive intox or ride w/intox public transit trolley 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
[2025-02-01 20:13] LABS: ALT 15 U/L (14-59); AST 31 U/L (15-37); Albumin 3.5 g/dL (3.4-5.0); Alkaline Phosphatase 171 U/L (46-116); Anion Gap 8.4 mmol/L (3-11); BUN 23 mg/dL (7-18); Bilirubin, Total 0.3 mg/dL (0.2-1.0); CO2 30.6 mmol/L (21.0-32.0); CREATININE 0.9 mg/dL (0.55-1.02); Calcium 10.2 mg/dL (8.5-10.1); Chloride 98 mmol/L (98-107); Estimated GFR 79.85 (mL/min/1.73m2); Glucose 106 mg/dL (74-106); Magnesium 1.6 mg/dL (1.8-2.4); Potassium 3.6 mmol/L (3.5-5.1); Sodium 137 mmol/L (136-145); Total Protein 7.9 g/dL (6.4-8.2); Troponin I 6 ng/L (<or=51)
[2025-02-01 20:18] LABS: WBC 0-2 HPF (0-5)
[2025-02-01 20:19] LABS: Bacteria Few HPF (Negative); C & S Indicated? No; Casts 0-2 Hyaline LPF (Negative); Crystals Negative HPF (Negative); Epithelial Cells Few HPF (Negative); Mucus Trace (Negative); RBC Negative HPF (0-2)
[2025-02-01] MEDS: Ketorolac 15 MG/ML VIAL IVP (20:45)
[2025-02-01 20:57] LABS: Troponin I 7 ng/L (<or=51)
== END 2025-02-01 21:24 | disposition left against medical advice (07) ==
PROVIDERS: Emergency Provider Emergency Medicine; PCP Internal Medicine
DX: R20.2 Paresthesia of skin (principal); R41.0 Disorientation, unspecified; E11.69 Type 2 diabetes mellitus with other specified complication; Z79.4 Long term (current) use of insulin; Z53.29 Procedure and treatment not carried out because of patient's decision for other reasons
CPT/HCPCS: 99284; 99285; 96374; 36416; 82962; 70496; 70498; 80053; 82805; 81003; 81015; 83735; 84484; 85025; 85610; J1885; J3490

== ENCOUNTER 2025-03-12 23:44 | Emergency (ER) | payer OTHER, SELFPAY ==
--- NOTE | 2025-03-12 23:45 | RT.EKG_ITS ---
APPROVED REPORT Exam: Resting ECG Reason for Exam: Chest Pain Patient Location: E HR:64 bpm ECG Measurements Heart Rate 64 AXIS KS 188 P 25 QRSd 87 QRS 20 QT 447 T 51 QTc 463 Conclusion Sinus rhythm...normal P axis, V-rate 60- [address] [place] [address]-T changes/flattening There are no significant changes compared to prior EKG performed on 01/10/2025 at 08:25.
[2025-03-12 23:52] VITALS: BP 86/56; PULSE 72; RESP 16; O2SAT 95
[2025-03-12 23:53] VITALS: BP 86/54; PULSE 67; PULSE 69; RESP 16
[2025-03-12 23:54] VITALS: PULSE 66; RESP 13
[2025-03-13] VITALS (94 sets, daily range): BP systolic 48–133; BP diastolic 12–79; PULSE 26–72; RESP 9–26; O2SAT 30–97
--- NOTE | 2025-03-13 00:11 | ED.GENADUL_ITS ---
Discharge Plan Disposition Patient Disposition: Against Medical Advice Condition: Fair Discharge Details Clinical Impression: Hypotension, AUGUSTINE (acute kidney injury), Acidosis, lactic, Migraine Primary Care Provider: Kevin Lehman ED Provider: Kevin Pascual [place] Meds and New Rx's Prescriptions: Continued metoclopramide HCl 10 mg tablet 10 mg PO .tid ac Rx Instructions: administer 30 minutes before meals ondansetron 8 mg tablet,disintegrating 8 mg PO BID PRN (Reason: nausea and vomiting) Qty: 60 11RF ipratropium-albuterol 0.5 mg-3 mg(2.5 mg base)/3 mL solution for nebulization 3 ml inhalation QID PRN (Reason: wheezing) Qty: 180 1RF Rx Instructions: During asthma exacerbation, may use preventatively TID, titrating down to QID PRN as wheeze & SOB improve. atorvastatin 80 mg tablet 80 mg PO DAILY Qty: 90 3RF (DME) Dexcom G6 Sensor Device See Rx Instructions .ROUTE .COMPLEX Qty: 3 6RF Dose Instruction: USE DIRECTED Rx Instructions: USE DIRECTED methadone [Methadone Intensol] 10 mg/mL concentrate 77 mg PO DAILY naloxone [Narcan] 4 mg/actuation spray,non-aerosol 4 mg intranasal Q2M PRN (Reason: opioid overdose) Qty: 2 0RF Rx Instructions: spray 1 dose into ONE nostril; alternate nostrils w each dose until help arr danielle (DME) Dexcom G6 Transmitter Device See Rx Instructions .Route Qty: 3 3RF Rx Instructions: As directed pregabalin 200 mg capsule 200 mg PO TID Qty: 90 3RF Patient Comments: -- Pt states she is taking both pregabalin and gabapentin (DME) foam pillow triangular See Rx Instructions .Route .MEDSUPPLY Qty: 1 0RF Rx Instructions: Trial sleeping & resting (legs need elevation) @ 30-40' angle to alleviate SOB/Panic (DME) pen needle, diabetic [BD Ultra-Fine Yamini Pen Needle] 32 gauge x 5/32 needle See Rx Instructions .ROUTE .COMPLEX Qty: 100 0RF Dose Instruction: USE TO ADMINISTER INSULIN ONCE DAILY Rx Instructions: USE TO ADMINISTER INSULIN ONCE DAILY (DME) blood-glucose meter Misc See Rx Instructions .Route Qty: 1 0RF Rx Instructions: One Touch meter (DME) lancets Misc See Rx Instructions .ROUTE .MEDSUPPLY Qty: 400 3RF Rx Instructions: As directed to check blood glucose four times daily. On insulin. Dispense one touch ultra (DME) Blood Glucose Test Strip See Rx Instructions .MEDSUPPLY Qty: 400 3RF Rx Instructions: As directed to check blood glucose four times daily. On insulin. Dispense one touch ultra magnesium oxide 400 mg (241.3 mg magnesium) tablet 400 mg PO BID Qty: 180 0RF nystatin 100,000 unit/gram powder 1 applic Topical BID PRN (Reason: fungal skin infection) Qty: 30 3RF Rx Instructions: Apply powder to affected area under R breast twice daily polyethylene glycol 3350 [Miralax] 17 gram/dose powder 17 g PO DAILY PRN (Reason: constipation/gastroparesis) Qty: 238 0RF Ajovy Autoinjector 225 mg/1.5 mL auto-injector 225 mg subcut QMONTH Patient Comments: Pt has missed the last 2 months Botox 100 unit recon soln 300 unit IM ONCE Patient Comments: -- Pt's last dose was 3 months ago, next dose due anytime Rx Instructions: divided among affected muscles clonidine HCl 0.1 mg tablet 0.1 mg PO TID lurasidone 80 mg tablet 40 mg PO DAILY Patient Comments: TAKE ONE TABLET BY MOUTH EVERY DAY WITH AT LEAST 350 CALORIES furosemide 20 mg tablet 20 mg PO QAM metoprolol succinate 100 mg tablet extended release 24 hr 100 mg PO DAILY acyclovir 800 mg tablet 800 mg PO DAILY hydroxyzine pamoate 50 mg capsule 50 mg PO BID Patient Comments: TAKE ONE CAPSULE BY MOUTH TWICE A DAY dextroamphetamine-amphetamine 30 mg tablet 30 mg PO BID Patient Comments: TAKE ONE TABLET BY MOUTH TWICE A DAY @ 5am, 11am olmesartan 20 mg tablet 20 mg PO DAILY valacyclovir 1 gram tablet 1,000 mg PO DAILY PRN (Reason: for flares) Patient Comments: TAKE ONE TABLET BY MOUTH EVERY DAY prn flares sumatriptan succinate 100 mg tablet 100 mg PO QDAY PRN (Reason: migraine headache) Patient Comments: TAKE ONE TABLET BY MOUTH ONCE NEEDED FOR MIGRAINE HEADACHE A SECOND DOSE CAN BE TAKEN IF NO REPSONSE AFTER 2 HOURS MAXIMUM DAILY DOSE = 2 methocarbamol 500 mg tablet 500 mg PO HS PRN (Reason: muscle spasm) Rx Instructions: Use lowest effective dose for shortest duration for muscle spasm omeprazole 40 mg capsule,delayed release(/EC) 40 mg PO BID acetaminophen 500 mg tablet 1,000 mg PO Q6H MDD 3000 mg PRN (Reason: fever or pain) Rx Instructions: 1 month supply lorazepam 0.5 mg tablet 0.5 mg PO DAILY PRN (Reason: dyspnea) Rx Instructions: Short term increase to BID PRN panic or shortness of breath orally daily PRN; (FYI to Prescriber @ [facility]) gabapentin 300 mg capsule 300 mg PO HS Patient Comments: -- Pt states she is taking both pregabalin and gabapentin albuterol sulfate 90 mcg/actuation HFA aerosol inhaler 2 puff Inhalation Q4H PRN (Reason: shortness of breath or wheezing) Rx Instructions: DISPENSE ALBUTEROL INHALER BRAND COVERED BY INSURANCE insulin aspart U-100 [Novolog FlexPen U-100 Insulin] 100 unit/mL (3 mL) insulin pen 10 - 15 unit subcut AC Rx Instructions: -- Pt uses 10-15 units sliding scale before meals Gvoke HypoPen 2-Pack 1 mg/0.2 mL auto-injector 1 mg subcut ONCE PRN (Reason: per hypoglycemic protocol) Rx Instructions: HYPOGLYCEMIA; as a single dose; may repeat once after 15 minutes if no response Natural Tears (PF) 0.1-0.3 % dropperette 1 drp ophthalmic (eye) QID PRN Discharge Instructions Additional Instructions: You had presented to the ED and was found to be hypotensive, though you did respond to IV fluids. However, there is evidence of some kidney injury which potentially could be related to just dehydration but given your elevated white count and elevated lactic acid cannot completely rule out an infection though at this time there is no clear source. You were offered admission for continued IV fluids, repeat laboratory studies, monitoring to be sure that you are condition does not deteriorate. You have elected not to be admitted and to leave the hospital AGAINST MEDICAL ADVICE to follow-up with your primary care. You are at risk for worsening kidney function, recurrent low blood pressure, worsening condition and potentially . You are encouraged to return to the ED if you change your mind or if you begin to feel worse once again. Otherwise, you should follow-up with your primary care as soon as possible. Referrals: Kevin Lehman DO [Primary Care Provider, Medicine] HPI General Mode of arrival: ambulatory . Date/Time Provider Initiated Documentation: 03/13/25 00:10 . Limitations to Documentation: no limitations . Information obtained by: patient, RN notes reviewed and old records reviewed . HPI Narrative: Patient is presenting to ED with complaint of chest pain that has been intermittent lasting minutes at a time but present all day. She feels more short of breath than usual. She denies a fever or cough. She had diarrhea a few days ago which has since resolved. She has had no vomiting. She denies abdominal pain. She does report having a recurrent migraine headache which she has been having trouble with on and off over the last month or so. She has been to [facility] for this and was admitted in January. She has no neurologic change. She denies any urinary symptoms. Related Data Home Medications ?Medication ?Instructions ?Recorded ?Confirmed pen needle, diabetic 32 gauge x #100 ea 06/30/2303/12/32 (BD Ultra-Fine Yamini Pen Needle) blood-glucose meter #1 ea 08/28/23 03/12/25 lancets #400 ea 08/28/23 03/12/25 naloxone 4 mg/actuation nasal 4 mg intranasal Q2M PRN opioid 02/13/24 03/12/25 spray (Narcan) overdose #2 ea blood sugar diagnostic (Blood #400 ea 04/26/24 5 Glucose Test strips) magnesium oxide 400 mg (241.3 mg 400 mg PO BID #180 ta bs 04/26/24 03/12/25 magnesium) tablet nystatin 100,000 unit/gram topical 1 applic topical BI D PRN fungal 05/25/24 03/12/25 powder skin infection #30 grams ipratropium 0.5 mg-albuterol 3 mg 3 ml inhalation QID PRN wheezing 05/31/24 (2.5 mg base)/3 mL nebulization #180 mL soln metoclopramide HCl 10 mg tablet 10 mg PO .tid ac 05/3103/12/25 ondansetron 8 mg disintegrating 8 mg PO BID PRN nausea and 05/31/24 03/12/25 tablet vomiting #60 tabs fremanezumab-vfrm 225 mg/1.5 mL 225 mg subcut QMONTH 0 06/07/24 03/12/25 subcutaneous auto-injector (Ajovy) onabotulinumtoxinA 100 unit 300 unit IM ONCE 06/07/24 03/12/25 solution for injection (Botox) lurasidone 80 mg tablet 40 mg PO DAILY 06/08/2402/21 atorvastatin 80 mg tablet 80 mg PO DAILY #90 tabs 11/1503/12/25 blood-glucose sensor (Dexcom G6 #3 ea 06/23/24 5 Sensor device) methadone 10 mg/mL oral 77 mg PO DAILY 06/23/2402/21 concentrate (Methadone Intensol) blood-glucose transmitter (Dexcom #3 ea 07/07/2403/12 G6 Transmitter device) foam pillow #1 ea 07/07/24 03/12/25 pregabalin 200 mg capsule 200 mg PO TID #90 caps 07/0703/12/25 polyethylene glycol 3350 17 17 g PO DAILY PRN 08/02/24 03/12/25 gram/dose oral powder (Miralax) constipation/gastropar esis #238 grams clonidine HCl 0.1 mg tablet 0.1 mg PO TID 09/19/24 acetaminophen 500 mg tablet 1,000 mg PO Q6H PRN fever or pain 01/16/25 03/12/25 acyclovir 800 mg tablet 800 mg PO DAILY 01/16/25 albuterol sulfate 90 mcg/actuation 2 puff inhalation Q 4H PRN 01/16/25 03/12/25 aerosol inhaler shortness of breath or wheez ing dextran 70-hypromellose (PF) 0.1 1 drp ophthalmic (eye ) QID PRN 01/16/25 03/12/25 %-0.3 % eye drops in a dropperette (Natural Tears (PF)) dextroamphetamine-amphetamine 30 30 mg PO BID 01/16/25 03/12/25 mg tablet furosemide 20 mg tablet 20 mg PO QAM 01/16/25 gabapentin 300 mg capsule 300 mg PO HS back pain 01/1603/12/25 glucagon 1 mg/0.2 mL subcutaneous 1 mg subcut ONCE PRN per 01/16/25 03/12/25 auto-injector (Gvoke HypoPen hypoglycemic protocol 2-Pack) hydroxyzine pamoate 50 mg capsule 50 mg PO BID 5 03/12/25 insulin aspart U-100 100 unit/mL 10 - 15 unit subcut A C 01/16/25 03/12/25 (3 mL) subcutaneous pen (Novolog FlexPen U-100 Insulin aspart) lorazepam 0.5 mg tablet 0.5 mg PO DAILY PRN dyspnea 01/16/25 03/12/25 methocarbamol 500 mg tablet 500 mg PO HS PRN muscle sp asm 01/16/25 03/12/25 metoprolol succinate 100 mg 100 mg PO DAILY 01/16/25 0 03/12/25 tablet,extended release 24 hr olmesartan 20 mg tablet 20 mg PO DAILY 01/16/2502/21 omeprazole 40 mg capsule,delayed 40 mg PO BID 01/16/25 03/12/25 release sumatriptan succinate 100 mg tablet 100 mg PO QDAY PRN migraine 01/16/25 03/12/25 headache valacyclovir 1 gram tablet 1,000 mg PO DAILY PRN for f bishop 01/16/25 03/12/25 Previous Rx's ?Medication ?Instructions ?Recorded pen needle, diabetic 32 gauge x #100 ea 06/30/23 (BD Ultra-Fine Yamini Pen Needle) blood-glucose meter #1 ea 08/28/23 lancets #400 ea 08/28/23 naloxone 4 mg/actuation nasal 4 mg intranasal Q2M PRN opioid 02/13/24 spray (Narcan) overdose #2 ea blood sugar diagnostic (Blood #400 ea 04/26/24 Glucose Test strips) magnesium oxide 400 mg (241.3 mg 400 mg PO BID #180 ta bs 04/26/24 magnesium) tablet nystatin 100,000 unit/gram topical 1 applic topical BI D PRN fungal 05/25/24 powder skin infection #30 grams ipratropium 0.5 mg-albuterol 3 mg 3 ml inhalation QID PRN wheezing 05/31/24 (2.5 mg base)/3 mL nebulization #180 mL soln ondansetron 8 mg disintegrating 8 mg PO BID PRN nausea and 05/31/24 tablet vomiting #60 tabs atorvastatin 80 mg tablet 80 mg PO DAILY #90 tabs 11/15 blood-glucose sensor ([employer] G6 #3 ea 06/23/24 Sensor device) blood-glucose transmitter (Dexcom #3 ea 07/07/24 G6 Transmitter device) foam pillow #1 ea 07/07/24 pregabalin 200 mg capsule 200 mg PO TID #90 caps 07/07 polyethylene glycol 3350 17 17 g PO DAILY PRN 08/02/24 gram/dose oral powder (Miralax) constipation/gastropar esis #238 grams Allergies Allergy/AdvReac Type Severity Reaction Status Date / Time Penicillins Allergy Severe lip and Verified 03/12/25 23:56 facial swelling lamotrigine (From Lamictal) Allergy Unknown Skin Rash Verified 03/12/25 23:56 clindamycin AdvReac Severe Nausea & Verified 03/12/25 23:56 vomiting aspirin AdvReac Intermediate nausea/pain Verified 03/12/25 23:56 General Stated Complaint: Chest Pain CARLOS: 2 Exam Narrative Exam Narrative: Const: WDWN female in NAD. VS per triage. HEENT: NC/AT. Normal facial exam. Neck: Supple. Trachea midline. Lungs: Normal respiratory effort. Lungs w some scattered rhonchi. Cor: RRR without murmur. Good radial pulses. GI: Soft/ND/NT. Neuro: A+O x 3. Normal speech, mentation. Cranial nerves II - XII grossly intact. No gross motor or sensory deficit. Ext: No C/C/E. No erythema or warmth. Course Vital Signs Vital signs: Vital Signs Pulse 72 03/12/25 23:52 Respiratory Rate 16 03/12/25 23:52 Blood Pressure 86/56 L 03/12/25 23:52 Pulse Oximetry 95 03/12/25 23:52 Pulse 72 03/12/25 23:52 Respiratory Rate 16 03/12/25 23:52 Respiratory Effort Non-Labored 03/12/25 23:58 Blood Pressure 86/56 L 03/12/25 23:52 Blood Pressure Position Sitting 03/12/25 23:52 Pulse Oximetry 95 03/12/25 23:52 Medical Decision Making Patient is presenting to ED with complaints of intermittent chest pain, episodes of low blood pressure and high blood pressure, palpitations. Patient reporting that the chest pain is intermittent though has been present on and off throughout the entire day. Describes it as sharp and lasting a couple of minutes at a time. She feels more short of breath than usual. She denies fever or cough. She also is complaining of migraine headache which she has been having problems with over the last month. She has no acute neurologic change. Her heart rate is normal but her initial blood pressure is in the 80s systolically. Of note, she is on metoprolol which would explain the blunted heart rate. Her exam overall is unremarkable, few rhonchi present on lung exam. Abdomen is benign. Will place IV and start fluids. Check laboratory studies including a D-dimer, troponin. Imaging of chest will be determined by D-dimer result. Will give IV prochlorperazine to see if it helps with her headache. Patient's laboratory studies significant for a white count of 15.3. She seems to be always elevated as of recent though this is on the higher end. Her hemoglobin is normal. Her VBG shows a pH of 7.29 with a pCO2 of 61 and a bicarb of 29. The pCO2 is a little above her baseline though not significantly so. Her lactic acid is 3 which may be why she is more acidotic than usual despite chronically elevated pCO2. We will continue fluids. Patient's kidney function is also above baseline with a creatinine of 1.6. Per [facility] records 10 days ago h er creatinine was below 1. Glucose is high at 235. Liver function is good. Urinalysis does not show evidence of infection. Her D-dimer is elevated to 751. Given the lactic acidosis, hypotension, elevated white count with no clear source of infection currently will obtain CTA of chest to evaluate for PE versus pneumonia and continue down with CT abdomen pelvis. After 2 L of fluid her blood pressure is now normal. Her CTA shows no evidence of PE, infiltrate, effusion. CT of the abdomen pelvis is stable with no acute process identified. In discussing all the findings with patient and rec ommending admission due to hypotension and AUGUSTINE patient is refusing stating that she will follow-up with primary care. Both myself and her significant other are unable to convince her otherwise. I have informed her that I cannot ensure that kidney function will improve or the blood pressure will continue to stay normal after the fluid resuscitation. I have also informed her that despite no clear source of infection cannot completely rule this out. I have informed her that her condition could worsen once again. Despite this she insist that she will go home and follow-up but agrees to return if she starts to feel worse again. She does have capacity and she does seem to understand the risk and will therefore be discharged home AMA. Medical Records Medical records reviewed: Yes I reviewed the patient's medical records. Medical records narrative: [facility], [facility] and [facility] Lab Data Lab results reviewed: Yes I reviewed the patient's lab results. Lab results narrative: see MDM ECG Data Attestation: I personally reviewed and interpreted this ECG (s) as follows: Prior ECG tracings: available for review Interpretation: see EKG/MDM [facility] All Active Problems (Updated 03/13/25 @ 03:43 by Kevin Pascual MD) Migraine (Chronic) Acidosis, lactic (Acute) AUGUSTINE (acute kidney injury) (Acute) Hypotension (Acute) Dyspareunia in female (Acute 07/09/17) Diabetic foot ulcer (Acute) Orthopnea (Acute) Edema of both lower legs (Acute) l>r .. chf? INACTIVITY? Fatty infiltration of liver (Acute) Hx cirrhosis? 2' pancreatitis (05/2024)? Obstructive sleep apnea of adult (Acute) [facility] 12/23/23 Diabetic cataract of right eye (Acute) Ulcer of right foot limited to breakdown of skin (Acute 04/16/23) [facility] Podiatry Ulcer of left foot, limited to breakdown of skin (Acute 04/16/23) [facility] Podiatry Iron deficiency (Acute) 03/2023 iron studies indicating deficiency (NOT anemic) Chronic constipation (Chronic) [facility] GI Obesity (Chronic) Diabetic neuropathy (Acute) Tobacco use disorder (Chronic) Started smoking age 9 Polypharmacy (Chronic 12/14/15) Mild nonproliferative diabetic retinopathy associated with type 2 diabetes mellitus (Chronic 01/22/16) Depressive disorder (Chronic 10/31/14) ADMISSION SUICIDAL THOUGHTS 06/13/14 OD ATTEMPTS IN PAST Chronic nausea (Chronic) EGD 04/16/16 Dr. 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) Medical History Asthma Cirrhosis of liver [facility] GI Mental health disorder Pt reports being diagnosed with bipolar disorder, disassociative disorder, anxiety, & multiple personality disorder Gastroparesis (06/28/16) 03/17/[address] [facility] 2023: [facility] GI HSV-1 (herpes simplex virus 1) infection (03/12/17) Takes daily suppression Hyperlipidemia (09/30/16) 10-year ASCVD risk = unable to calculate due to not being age 40+ however dx T2DM, so Rx for statin Type 2 diabetes mellitus, with long-term current use of insulin With neuropathy & retinopathy (left, mild) Migraine [facility] Neuro Opioid use disorder MAT with methadone Chronic fatigue (07/19/15) Osteomyelitis Ulcer of foot due to secondary diabetes Umbilical hernia (03/11/18) 03/17/2018: [facility] GI Premature surgical menopause JAD/BSO in late 20s, no HRT Hepatitis C 02/14/2016 labwork: undetectable RNA level Surgical History S/P cholecystectomy (06/12/24) Dr Reyes Status post total hysterectomy and bilateral salpingo-oophorectomy (~2006) noncancerous reasons Status post left foot surgery (10/2022) Left fourth metatarsal head excision for chronic ulcer, osteomyelitis ([facility]/Tamia Vidales DPM) Status post section (~2003) EGD (04/16/16) Dr. Ferrer Family History Mother , 46yo due to kidney & liver failure due to alcohol Substance use disorder Alcohol use disorder Father , 62yo from ALS Substance use disorder Alcohol use disorder ALS (amyotrophic lateral sclerosis) Grandmother Colon cancer Paternal Paternal Uncle Cardiac arrest Substance use disorder Alcohol and Pain Medication Abuse Social History Smoking/Tobacco Use Status: Current every day Tobacco Type: cigarettes Smoking packs per day: 1 Smoking cigarettes per day: 20.0 Years smoked: 34 Smoking pack- years: 34.00 Tobacco: How many years used: 33 Quit status: considering quitting Smoking risk assessment performed?: Yes Alcohol Intake: never Drug use: Occasionally Substance use type: former substance user and marijuana Details: Pt. 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 Pets and animals: Yes (1 dog, 4 cats) Pets and animals: cat(s) and dog(s) Sexually active: Yes Do you think of yourself as: straight/heterosexual Current gender identity: female Other: 09/2022: pt reports she is engaged What is your relationship status?: How often do you talk on the phone with friends or family?: three or more times per week How often do you get together with friends or relatives?: once per week How often do you attend yazidi or mandaen services?: decline to answer Do you belong to any clubs or organized social groups?: no Panel score (0-1 are the most socially isolated patients): 2 What type of physical activity do you participate in: none Duration: decline to answer Frequency: decline to answer Seatbelt use: always Helmet use: No (No reason to wear one) Drive intox or ride 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
[2025-03-13 00:29] LABS: Abs Immature Grans 0.07 10^3/uL (0.0-0.06); Absolute Basophil Count 0.06 10^3/uL (0.0-0.2); BE (Venous) 3 mmol/L (-2-3); Basophils % 0.4 %; Eosinophils % 1.2 %; HCO3 (Venous) 29 mmol/L (23-28); HCT 40.2 % (36.0-46.0); HGB 12.4 g/dL (11.2-15.7); Immature Grans % 0.5 %; Lymphocytes % 33.3 %; MCH 23.6 pg (27.0-33.0); MCHC 30.8 % (32.0-36.0); MCV 76 fL (80-95); MPV 11.8 fL (8.0-11.0); Monocytes % 7.3 %; Neutrophils % 57.3 %; O2 Sat (Venous) 53 %; Platelet Count 240 10^3/uL (130-400); RBC 5.26 10^6/uL (3.93-5.22); RDW 19.4 % (11.7-14.6); TCO2 (Venous) 27 mmol/L (24-29); WBC 15.31 10^3/uL (4.4-10.8); pH (Venous) 7.29 (7.31-7.41); pO2 (Venous) 24 mmHg
[2025-03-13 00:34] LABS: pCO2 (Venous) 61 mmHg (41-51)
[2025-03-13] MEDS: Normal Saline 500 ML IV ×2 (00:40→01:10)
[2025-03-13] MEDS: Prochlorperazine 10 MG/2 ML VIAL IVP (00:40)
[2025-03-13 00:44] LABS: Absolute Eosinophil Count 0.18 10^3/uL (0.0-0.7); Absolute Monocyte Count 1.12 10^3/uL (0.1-0.8); Absolute Neutrophil Count 8.77 10^3/uL (1.2-6.7)
[2025-03-13 00:48] LABS: Diff Comment Agrees w/ Instrument; RBC Morphology Normal
[2025-03-13 00:48] LABS: Bilirubin Small (Negative); Blood Negative (Negative); Clarity Sl Cloudy (Clear); Glucose 100 mg/dL (Negative); Ketones 15 mg/dL (Negative); Leukocyte Esterase Negative (Negative); Nitrite Negative (Negative); Specific Gravity >= 1.030 (1.005-1.025); Urobilinogen 0.2 mg/dL (Up to 0.2); pH 5.5 (5-8)
[2025-03-13 00:51] LABS: ALT 25 U/L (14-59); AST 17 U/L (15-37); Albumin 3.3 g/dL (3.4-5.0); Alkaline Phosphatase 195 U/L (46-116); Anion Gap 8.6 mmol/L (3-11); BUN 32 mg/dL (7-18); Bilirubin, Total 0.2 mg/dL (0.2-1.0); CO2 30.4 mmol/L (21.0-32.0); CREATININE 1.6 mg/dL (0.55-1.02); Calcium 9.3 mg/dL (8.5-10.1); Chloride 98 mmol/L (98-107); Estimated GFR 40.03 (mL/min/1.73m2); Glucose 235 mg/dL (74-106); Magnesium 1.9 mg/dL (1.8-2.4); Potassium 3.8 mmol/L (3.5-5.1); Sodium 137 mmol/L (136-145); Total Protein 7.4 g/dL (6.4-8.2); Troponin I 8 ng/L (<or=51)
[2025-03-13 00:54] LABS: Bacteria Moderate HPF (Negative); C & S Indicated? No; Casts Negative LPF (Negative); Crystals Negative HPF (Negative); Epithelial Cells Few HPF (Negative); Mucus Trace (Negative); RBC Negative HPF (0-2)
[2025-03-13 00:58] LABS: D-Dimer 751 ng/mlFEU (<500)
--- NOTE | 2025-03-13 01:10 | NUR.NOTE ---
Blood pressures trending down despite running fluids, confirmed Bp of 72/40 by manual blood pressure. MD made aware second 500 ml NS bolus hung
[2025-03-13] MEDS: Lactated Ringers 1,000 ML 1000 ML IV (01:36)
[2025-03-13 01:49] LABS: Troponin I 7 ng/L (<or=51)
--- NOTE | 2025-03-13 02:42 | DI.CT_ITS ---
Exam(s) CT CHEST PE ABD PELVIS W EXAM: CT CHEST PE ABD PELVIS W CLINICAL HISTORY: hypotension, SOB, elevated lactic. TECHNIQUE: Imaging Protocol: Axial CT angiography was performed with multi- slice acquisition and multi-planar and/or 3D reconstructions. Computer aided detection (CAD) was utilized. CONTRAST MATERIAL: Intravenous: Omnipaque 350contrast volume:100 mL COMPARISON: CT CT ABDOMEN PELVIS W from 06/11/[address] ABDOMEN PELVIS WO from 05/24/[address] ABDOMEN PELVIS WO from 06/07/[address] ABDOMEN PELVIS W from 06/14/[address] CHEST PE CTA from 01/10/2025 FINDINGS: CHEST: Tracheobronchial tree: Patent where visualized. No evidence of bronchiectasis. Pulmonary parenchyma: No consolidation or dominant measurable mass. No architectural distortion. Pulmonary Arteries: No evidence of filling defect to suggest pulmonary emboli. Mediastinum and Imani: No dominant adenopathy or fluid collection. The esophagus is unremarkable. Visualized thyroid gland: Unremarkable. Pleura: No effusion or pneumothorax. Heart: The heart is not dilated. No coronary artery calcifications are seen. No pericardial effusion. Aorta: Thoracic aorta non-dilated. No evidence of dissection. Bones: Within normal limits for the patient's age. Soft tissues: Unremarkable. Tubes, Catheters, and Lines: ABDOMEN: Liver: There again seen areas of hypodensity scattered within the liver. The do not displace the vascular structures of the liver. Normal vessels are seen coursing through the areas. There is a new but similar area seen in the medial aspect of the right lobe of the liver. These areas show no enhancement on the arterial images. Portal, Superior Mesenteric, and Splenic Veins: Unremarkable. Gallbladder and Biliary Tract: Status post cholecystectomy. No significant biliary ductal dilatation is present. Pancreas: Normal density, no abnormal calcifications or inflammatory process. Spleen: Normal. Adrenals: No masses seen. Kidneys: Normal size, contour and axis. No radiodense stones or obstructive uropathy. No masses seen. Abdominal Aorta: Abdominal portion non-dilated. Mild atherosclerotic calcification is present. Bowel: No obstruction or bowel wall thickening. Appendix is unremarkable. There is no evidence of pneumatosis. Peritoneal Cavity: No ascites, collection or mesenteric inflammatory response. No free air. Lymph Nodes: Within normal limits. Bones: Within normal limits for the patient's age. Soft Tissues: Unremarkable. PELVIS: Bladder: Symmetric distention, no gross wall thickening. Reproductive Organs: Status post hysterectomy. Lymph Nodes: Within normal limits. Bones: Within normal limits. IMPRESSION: 1. No acute abdominal or pelvic process. 2. Stable areas of decreased attenuation in the right left lobes of the liver. There is no mass effect or vessel displacement. These areas likely reflect areas of fatty infiltration. 3. There is a new area of decreased attenuation in the medial aspect of the right lobe of the liver. Further evaluation with an MRI of the abdomen without and with contrast is recommended in this patient. 4. Bowel is unremarkable. 5. No acute pulmonary process. Evidence of a pulmonary embolism, thoracic aortic aneurysm or dissection. 6. The preliminary [facility] report was reviewed. Unexpected findings RADIATION DOSE DELIVERED: 990.14mGy.cm Total DLP DATA REPOSITORY: All CT scans at this facility are submitted to the National Radiology Data Registry (NRDR) Dose Index Registry (DIR) with the [employer] (ACR). RADIATION OPTIMIZATION: All CT scans at this facility use at least one of these dose optimization techniques: automated exposure control; mA and/or kV adjustment per patient size (includes targeted exams where dose is matched to clinical indication); or iterative reconstruction.
[2025-03-13] MEDS: Normal Saline - Diluent 50 ML VIAL IJ (02:46)
[2025-03-13] MEDS: Omnipaque 350 MG/ML 100 ML BTL IJ (02:47)
--- NOTE | 2025-03-13 03:07 | DI.[facility]_ITS ---
PROCEDURE INFORMATION: Exam: CTA Chest With Contrast CTA Abdomen With Contrast Exam date and time: 03/13/2025 2:30 AM Age: 44 years old Clinical indication: Other: Hypotension, SOB, elevated lactic TECHNIQUE: Imaging protocol: Computed tomographic angiography of the chest with contrast. Exam focused on the arteries. Computed tomographic angiography of the abdomen with contrast. Exam focused on the arteries. 3D rendering (Not supervised by radiologist): MIP and/or 3D reconstructed images were created by the technologist. Contrast material: OMNIPAQUE 350; Contrast volume: 100 ml; Contrast route: INTRAVENOUS (IV); COMPARISON: CT CHEST PE CTA 01/10/2025 11:11 AM FINDINGS: VASCULATURE: Pulmonary arteries: No pulmonary embolus is appreciated. Aorta: No aortic aneurysm or dissection seen. Celiac trunk and mesenteric arteries: No occlusion or significant stenosis. Renal arteries: No occlusion or significant stenosis. CHEST: Lungs: No focal consolidation. Pleural spaces: No pleural effusion. Heart: No. pericardial effusion. ABDOMEN AND PELVIS: Liver: Contour irregularity in the liver. Correlate clinically for history of cirrhosis. Hepatomegaly. Multiple hypodense lesions in the liver, indeterminate on this examination. Consider follow-up. Gallbladder and biliary ducts: No calcified stones. Pancreas: No evidence for acute pancreatitis. Spleen: Mild splenomegaly. Adrenal glands: No adrenal masses. Kidneys: No hydronephrosis. Stomach and bowel: No intestinal obstruction is evident. Intraperitoneal space: No free air. Urinary bladder: No bladder wall thickening. Reproductive: Uterus absent. Lymph nodes: Nonspecific mesenteric and retroperitoneal lymph nodes. Bones/joints: No acute fracture. Soft tissues: Unremarkable. Other findings: Arterial calcifications. IMPRESSION: 1. No acute findings to explain reported symptoms. 2. Nonacute findings as outlined above. Dictated and Authenticated by: Stefanie Mendez MD. Orderin Ankur Brown MD
== END 2025-03-13 04:04 | disposition left against medical advice (07) ==
PROVIDERS: Emergency Provider Emergency Medicine; PCP Internal Medicine
DX: I95.9 Hypotension, unspecified (principal); N17.9 Acute kidney failure, unspecified; E87.21 Acute metabolic acidosis; G43.909 Migraine, unspecified, not intractable, without status migrainosus; E11.9 Type 2 diabetes mellitus without complications
CPT/HCPCS: 36415; 71275; 74177; 80053; 81025; 82805; 93005; 96361; 96374; 99285; 81003; 81015; 83605; 83735; 84484; 85025; 85379; 93010; J0780; J3490

== ENCOUNTER 2025-05-02 18:35 | Emergency (ER) | payer OTHER, SELFPAY ==
[2025-05-02 18:39] VITALS: BP 120/78; PULSE 86; RESP 16; TEMP 36.6; O2SAT 94
== END 2025-05-02 18:51 ==
PROVIDERS: Emergency Provider Emergency Medicine; PCP Internal Medicine
DX: Z53.21 Procedure and treatment not carried out due to patient leaving prior to being seen by health care provider (principal)

== ENCOUNTER 2025-05-11 05:53 | Emergency (ER) | payer OTHER, SELFPAY ==
[2025-05-11 05:56] VITALS: BP 179/80; PULSE 54; RESP 16; TEMP 36.7; O2SAT 98
--- NOTE | 2025-05-11 05:57 | W.ED.GENAD ---
Discharge Plan Disposition Patient Disposition: Home Condition: Improving Discharge Details Clinical Impression: Migraine headache Primary Care Provider: Kevin Lehman ED Provider: Kevin Pascual Home Meds and New Rx's Prescriptions: No Action metoclopramide HCl 10 mg tablet 10 mg PO .tid ac Rx Instructions: administer 30 minutes before meals ondansetron 8 mg tablet,disintegrating 8 mg PO BID PRN (Reason: nausea and vomiting) Qty: 60 11RF ipratropium-albuterol 0.5 mg-3 mg(2.5 mg base)/3 mL solution for nebulization 3 ml inhalation QID PRN (Reason: wheezing) Qty: 180 1RF Rx Instructions: During asthma exacerbation, may use preventatively TID, titrating down to QID PRN as wheeze & SOB improve. atorvastatin 80 mg tablet 80 mg PO DAILY Qty: 90 3RF (DME) Dexcom G6 Sensor Device See Rx Instructions .ROUTE .COMPLEX Qty: 3 6RF Dose Instruction: USE DIRECTED Rx Instructions: USE DIRECTED methadone [Methadone Intensol] 10 mg/mL concentrate 77 mg PO DAILY naloxone [Narcan] 4 mg/actuation spray,non-aerosol 4 mg intranasal Q2M PRN (Reason: opioid overdose) Qty: 2 0RF Rx Instructions: spray 1 dose into ONE nostril; alternate nostrils w each dose until help arrives (DME) Dexcom G6 Transmitter Device See Rx Instructions .Route Qty: 3 3RF Rx Instructions: As directed pregabalin 200 mg capsule 200 mg PO TID Qty: 90 3RF Patient Comments: -- Pt states she is taking both pregabalin and gabapentin (DME) foam pillow triangular See Rx Instructions .Route .MEDSUPPLY Qty: 1 0RF Rx Instructions: Trial sleeping & resting (legs need elevation) @ 30-40' angle to alleviate SOB/Panic (DME) pen needle, diabetic [BD Ultra-Fine Yamini Pen Needle] 32 gauge x 5/32 needle See Rx Instructions .ROUTE .COMPLEX Qty: 100 0RF Dose Instruction: USE TO ADMINISTER INSULIN ONCE DAILY Rx Instructions: USE TO ADMINISTER INSULIN ONCE DAILY (DME) blood-glucose meter Misc See Rx Instructions .Route Qty: 1 0RF Rx Instructions: One Touch meter (DME) lancets Misc See Rx Instructions .ROUTE .MEDSUPPLY Qty: 400 3RF Rx Instructions: As directed to check blood glucose four times daily. On insulin. Dispense one touch ultra (DME) Blood Glucose Test Strip See Rx Instructions .MEDSUPPLY Qty: 400 3RF Rx Instructions: As directed to check blood glucose four times daily. On insulin. Dispense one touch ultra magnesium oxide 400 mg (241.3 mg magnesium) tablet 400 mg PO BID Qty: 180 0RF nystatin 100,000 unit/gram powder 1 applic Topical BID PRN (Reason: fungal skin infection) Qty: 30 3RF Rx Instructions: Apply powder to affected area under R breast twice daily polyethylene glycol 3350 [Miralax] 17 gram/dose powder 17 g PO DAILY PRN (Reason: constipation/gastroparesis) Qty: 238 0RF Ajovy Autoinjector 225 mg/1.5 mL auto-injector 225 mg subcut QMONTH Patient Comments: Pt has missed the last 2 months Botox 100 unit recon soln 300 unit IM ONCE Patient Comments: -- Pt's last dose was 3 months ago, next dose due anytime Rx Instructions: divided among affected muscles clonidine HCl 0.1 mg tablet 0.1 mg PO TID lurasidone 80 mg tablet 40 mg PO DAILY Patient Comments: TAKE ONE TABLET BY MOUTH EVERY DAY WITH AT LEAST 350 CALORIES furosemide 20 mg tablet 20 mg PO QAM metoprolol succinate 100 mg tablet extended release 24 hr 100 mg PO DAILY acyclovir 800 mg tablet 800 mg PO DAILY hydroxyzine pamoate 50 mg capsule 50 mg PO BID Patient Comments: TAKE ONE CAPSULE BY MOUTH TWICE A DAY dextroamphetamine-amphetamine 30 mg tablet 30 mg PO BID Patient Comments: TAKE ONE TABLET BY MOUTH TWICE A DAY @ 5am, 11am olmesartan 20 mg tablet 20 mg PO DAILY valacyclovir 1 gram tablet 1,000 mg PO DAILY PRN (Reason: for flares) Patient Comments: TAKE ONE TABLET BY MOUTH EVERY DAY prn flares sumatriptan succinate 100 mg tablet 100 mg PO QDAY PRN (Reason: migraine headache) Patient Comments: TAKE ONE TABLET BY MOUTH ONCE NEEDED FOR MIGRAINE HEADACHE A SECOND DOSE CAN BE TAKEN IF NO REPSONSE AFTER 2 HOURS MAXIMUM DAILY DOSE = 2 methocarbamol 500 mg tablet 500 mg PO HS PRN (Reason: muscle spasm) Rx Instructions: Use lowest effective dose for shortest duration for muscle spasm omeprazole 40 mg capsule,delayed release(DR/EC) 40 mg PO BID acetaminophen 500 mg tablet 1,000 mg PO Q6H MDD 3000 mg PRN (Reason: fever or pain) Rx Instructions: 1 month supply lorazepam 0.5 mg tablet 0.5 mg PO DAILY PRN (Reason: dyspnea) Rx Instructions: Short term increase to BID PRN panic or shortness of breath orally daily PRN; (FYI to Prescriber @ [facility]) gabapentin 300 mg capsule 300 mg PO HS Patient Comments: -- Pt states she is taking both pregabalin and gabapentin albuterol sulfate 90 mcg/actuation HFA aerosol inhaler 2 puff Inhalation Q4H PRN (Reason: shortness of breath or wheezing) Rx Instructions: DISPENSE ALBUTEROL INHALER BRAND COVERED BY INSURANCE insulin aspart U-100 [Novolog FlexPen U-100 Insulin] 100 unit/mL (3 mL) insulin pen 10 - 15 unit subcut AC Rx Instructions: -- Pt uses 10-15 units sliding scale before meals Gvoke HypoPen 2-Pack 1 mg/0.2 mL auto-injector 1 mg subcut ONCE PRN (Reason: per hypoglycemic protocol) Rx Instructions: HYPOGLYCEMIA; as a single dose; may repeat once after 15 minutes if no response Natural Tears (PF) 0.1-0.3 % dropperette 1 drp ophthalmic (eye) QID PRN Discharge Instructions Instructions: Headache, Adult ED Additional Instructions: You were seen for a migraine headache which responded to migraine cocktail here with improvement of your headache. Would recommend trying to get some sleep. Follow-up with neurology at [facility]. Return to ED for any neurologic changes, confusion, fever, persistent vomiting, other concerns. HPI General Mode of arrival: ambulatory. Date/Time Provider Initiated Documentation: 05/11/25 05:57. Limitations to Documentation: no limitations. Information obtained by: patient and RN notes reviewed. HPI Narrative: Patient presents to the ED complaining of migraine headache starting yesterday afternoon and has not responded to home medications. Patient reporting that she missed a few Botox injections as well as being out of her Ajovy which is likely contributing to her migraine. Pain is frontal in nature and associated with nausea but no vomiting. She has had no fever, neurologic change, chest pain, shortness of breath, abdominal pain. She does not feel this migraine different from previous. She is followed by neurology at [facility] patient reports ED visits there for migraine, last 1 being she thinks about 1 to 2 weeks ago. Related Data Home Medications ?Medication ?Instructions ?Recorded ?Confirmed pen needle, diabetic 32 gauge x #100 ea 06/30/23 03/12/25 5/32 (BD Ultra-Fine Yamini Pen Needle) blood-glucose meter #1 ea 08/28/23 03/12/25 lancets #400 ea 08/28/23 03/12/25 naloxone 4 mg/actuation nasal 4 mg intranasal Q2M PRN opioid 02/13/24 03/12/25 spray (Narcan) overdose #2 ea blood sugar diagnostic (Blood #400 ea 04/26/24 03/12/25 Glucose Test strips) magnesium oxide 400 mg (241.3 mg 400 mg PO BID #180 tabs 04/26/24 03/12/25 magnesium) tablet nystatin 100,000 unit/gram topical 1 applic topical BID PRN fungal 05/25/24 03/12/25 powder skin infection #30 grams ipratropium 0.5 mg-albuterol 3 mg 3 ml inhalation QID PRN wheezing 05/31/24 03/12/25 (2.5 mg base)/3 mL nebulization #180 mL soln metoclopramide HCl 10 mg tablet 10 mg PO .tid ac 05/31/24 03/12/25 ondansetron 8 mg disintegrating 8 mg PO BID PRN nausea and 05/31/24 03/12/25 tablet vomiting #60 tabs fremanezumab-vfrm 225 mg/1.5 mL 225 mg subcut QMONTH 06/07/24 03/12/25 subcutaneous auto-injector (Ajovy) onabotulinumtoxinA 100 unit 300 unit IM ONCE 06/07/24 03/12/25 solution for injection (Botox) lurasidone 80 mg tablet 40 mg PO DAILY 06/08/24 03/12/25 atorvastatin 80 mg tablet 80 mg PO DAILY #90 tabs 06/23/24 03/12/25 blood-glucose sensor (Dexcom G6 #3 ea 06/23/24 03/12/25 Sensor device) methadone 10 mg/mL oral 77 mg PO DAILY 06/23/24 03/12/25 concentrate (Methadone Intensol) blood-glucose transmitter (Dexcom #3 ea 07/07/24 03/12/25 G6 Transmitter device) foam pillow #1 ea 07/07/24 03/12/25 pregabalin 200 mg capsule 200 mg PO TID #90 caps 07/07/24 03/12/25 polyethylene glycol 3350 17 17 g PO DAILY PRN 08/02/24 03/12/25 gram/dose oral powder (Miralax) constipation/gastroparesis #238 grams clonidine HCl 0.1 mg tablet 0.1 mg PO TID 09/19/24 03/12/25 acetaminophen 500 mg tablet 1,000 mg PO Q6H PRN fever or pain 01/16/25 03/12/25 acyclovir 800 mg tablet 800 mg PO DAILY 01/16/25 03/12/25 albuterol sulfate 90 mcg/actuation 2 puff inhalation Q4H PRN 01/16/25 03/12/25 aerosol inhaler shortness of breath or wheezing dextran 70-hypromellose (PF) 0.1 1 drp ophthalmic (eye) QID PRN 01/16/25 03/12/25 %-0.3 % eye drops in a dropperette (Natural Tears (PF)) dextroamphetamine-amphetamine 30 30 mg PO BID 01/16/25 03/12/25 mg tablet furosemide 20 mg tablet 20 mg PO QAM 01/16/25 03/12/25 gabapentin 300 mg capsule 300 mg PO HS back pain 01/16/25 03/12/25 glucagon 1 mg/0.2 mL subcutaneous 1 mg subcut ONCE PRN per 01/16/25 03/12/25 auto-injector (Gvoke HypoPen hypoglycemic protocol 2-Pack) hydroxyzine pamoate 50 mg capsule 50 mg PO BID 01/16/25 03/12/25 insulin aspart U-100 100 unit/mL 10 - 15 unit subcut AC 01/16/25 03/12/25 (3 mL) subcutaneous pen (Novolog FlexPen U-100 Insulin aspart) lorazepam 0.5 mg tablet 0.5 mg PO DAILY PRN dyspnea 01/16/25 03/12/25 methocarbamol 500 mg tablet 500 mg PO HS PRN muscle spasm 01/16/25 03/12/25 metoprolol succinate 100 mg 100 mg PO DAILY 01/16/25 03/12/25 tablet,extended release 24 hr olmesartan 20 mg tablet 20 mg PO DAILY 01/16/25 03/12/25 omeprazole 40 mg capsule,delayed 40 mg PO BID 01/16/25 03/12/25 release sumatriptan succinate 100 mg tablet 100 mg PO QDAY PRN migraine 01/16/25 03/12/25 headache valacyclovir 1 gram tablet 1,000 mg PO DAILY PRN for flares 01/16/25 03/12/25 Previous Rx's ?Medication ?Instructions ?Recorded pen needle, diabetic 32 gauge x #100 ea 06/30/23 (BD Ultra-Fine Yamini Pen Needle) blood-glucose meter #1 ea 08/28/23 lancets #400 ea 08/28/23 naloxone 4 mg/actuation nasal 4 mg intranasal Q2M PRN opioid 02/13/24 spray (Narcan) overdose #2 ea blood sugar diagnostic (Blood #400 ea 04/26/24 Glucose Test strips) magnesium oxide 400 mg (241.3 mg 400 mg PO BID #180 tabs 04/26/24 magnesium) tablet nystatin 100,000 unit/gram topical 1 applic topical BID PRN fungal 05/25/24 powder skin infection #30 grams ipratropium 0.5 mg-albuterol 3 mg 3 ml inhalation QID PRN wheezing 05/31/24 (2.5 mg base)/3 mL nebulization #180 mL soln ondansetron 8 mg disintegrating 8 mg PO BID PRN nausea and 05/31/24 tablet vomiting #60 tabs atorvastatin 80 mg tablet 80 mg PO DAILY #90 tabs 06/23/24 blood-glucose sensor (Dexcom G6 #3 ea 06/23/24 Sensor device) blood-glucose transmitter (Dexcom #3 ea 07/07/24 G6 Transmitter device) foam pillow #1 ea 07/07/24 pregabalin 200 mg capsule 200 mg PO TID #90 caps 07/07/24 polyethylene glycol 3350 17 17 g PO DAILY PRN 08/02/24 gram/dose oral powder (Miralax) constipation/gastroparesis #238 grams Allergies Allergy/AdvReac Type Severity Reaction Status Date / Time Penicillins Allergy Severe lip and Verified 05/02/25 18:45 facial swelling lamotrigine (From Lamictal) Allergy Unknown Skin Rash Verified 05/02/25 18:45 clindamycin AdvReac Severe Nausea & Verified 05/02/25 18:45 vomiting aspirin AdvReac Intermediate nausea/pain Verified 05/02/25 18:45 General CARLOS: 3 Exam Narrative Exam Narrative: Const: Obese female in NAD. VS per triage. HEENT: NC/AT. Normal facial exam. Neck: Supple. Trachea midline. Lungs: Normal respiratory effort. Lungs are clear. Cor: RRR with murmur. Good radial pulses. Neuro: A+O x 3. Normal speech, mentation, gait. Cranial nerves II - XII grossly intact. No gross motor or sensory deficit. Medical Decision Making Patient presenting to the ED with complaint of migraine headache that began yesterday afternoon and has persisted despite taking medications to abort migraines at home. She reports not having her Ajovy and missing previous Botox injections which is probably contributing to her migraines. She has no neurologic deficits. She denies any fever, chest pain, shortness of breath. She has nausea but no vomiting. She reports [facility] uses a specific cocktail that usually works. Unfortunately, at this point in time I am unable to access [facility] records. She has not taken ibuprofen since last night. Will place IV, give a liter of fluid, ketorolac, prochlorperazine, diphenhydramine and reevaluate. 07:15 - Patient reports improvement in her headache and was feeling better. She feels that she is able to cope with this and hopes to get some sleep once at home. Will plan on finishing her fluids and discharge home. Follow-up with neurology at [facility]. Return precautions provided. [facility] All Active Problems (Updated 05/11/25 @ 07:15 by Kevin Pascual MD) Migraine headache (Chronic) Dyspareunia in female (Acute 07/09/17) Diabetic foot ulcer (Acute) Orthopnea (Acute) Edema of both lower legs (Acute) l>r .. chf? INACTIVITY? Fatty infiltration of liver (Acute) Hx cirrhosis? 2' pancreatitis (05/2024)? Obstructive sleep apnea of adult (Acute) [facility] 12/23/23 Diabetic cataract of right eye (Acute) Ulcer of right foot limited to breakdown of skin (Acute 04/16/23) [facility] Ulcer of left foot, limited to breakdown of skin (Acute 04/16/23) [facility] Iron deficiency (Acute) 03/2023 iron studies indicating deficiency (NOT anemic) Chronic constipation (Chronic) [facility] Obesity (Chronic) Diabetic neuropathy (Acute) Tobacco use disorder (Chronic) Started smoking age 9 Polypharmacy (Chronic 12/14/15) Mild nonproliferative diabetic retinopathy associated with type 2 diabetes mellitus (Chronic 01/22/16) Depressive disorder (Chronic 10/31/14) ADMISSION SUICIDAL THOUGHTS 06/13/14 OD ATTEMPTS IN PAST Chronic nausea (Chronic) EGD 04/16/16 Dr. 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) Medical History Asthma Cirrhosis of liver [facility] Mental health disorder Pt reports being diagnosed with bipolar disorder, disassociative disorder, anxiety, & multiple personality disorder Gastroparesis (06/28/16) 03/17/[address] 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) Takes daily suppression Hyperlipidemia (09/30/16) 10-year ASCVD risk = unable to calculate due to not being age 40+ however dx T2DM, so Rx for statin Type 2 diabetes mellitus, with long-term current use of insulin With neuropathy & retinopathy (left, mild) Migraine [facility] Opioid use disorder MAT with methadone Chronic fatigue (07/19/15) Osteomyelitis Ulcer of foot due to secondary diabetes Umbilical hernia (03/11/18) 03/17/2018: [facility] Premature surgical menopause JAD/BSO in late 20s, no HRT Hepatitis C 02/14/2016 labwork: undetectable RNA level Surgical History S/P cholecystectomy (06/12/24) Dr Reyes Status post total hysterectomy and bilateral salpingo-oophorectomy (~2006) noncancerous reasons Status post left foot surgery (10/2022) Left fourth metatarsal head excision for chronic ulcer, osteomyelitis ([facility]/Tamia Vidales DPM) Status post section (~2003) EGD (04/16/16) Dr. Ferrer Family History Mother , 46yo due to kidney & liver failure due to alcohol Substance use disorder Alcohol use disorder Father , 62yo from ALS Substance use disorder Alcohol use disorder ALS (amyotrophic lateral sclerosis) Grandmother Colon cancer Paternal Paternal Uncle Cardiac arrest Substance use disorder Alcohol and Pain Medication Abuse Social History Smoking/Tobacco Use Status: Current every day Tobacco Type: cigarettes Smoking packs per day: 1 Smoking cigarettes per day: 20.0 Years smoked: 34 Smoking pack-years: 34.00 Tobacco: How many years used: 33 Quit status: considering quitting Smoking risk assessment performed?: Yes Alcohol Intake: never Drug use: Occasionally Substance use type: former substance user and marijuana Details: Pt. 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 Pets and animals: Yes (1 dog, 4 cats) Pets and animals: cat(s) and dog(s) Sexually active: Yes Do you think of yourself as: straight/heterosexual Current gender identity: female Other: 09/2022: pt reports she is engaged What is your relationship status?: How often do you talk on the phone with friends or family?: three or more times per week How often do you get together with friends or relatives?: once per week How often do you attend caodaism or denominational services?: decline to answer Do you belong to any clubs or organized social groups?: no Panel score (0-1 are the most socially isolated patients): 2 What type of physical activity do you participate in: none Duration: decline to answer Frequency: decline to answer Seatbelt use: always Helmet use: No (No reason to wear one) Drive intox or ride w/intox wagon 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
[2025-05-11 06:02] VITALS: BP 179/80; PULSE 54; RESP 16; TEMP 36.7; O2SAT 98
[2025-05-11] MEDS: Prochlorperazine 10 MG/2 ML VIAL IVP (06:21)
[2025-05-11] MEDS: Normal Saline 1,000 ML 1000 ML IV (06:22)
[2025-05-11] MEDS: diphenhydrAMINE 50 MG/ML VIAL IVP (06:22)
[2025-05-11] MEDS: Ketorolac 15 MG/ML VIAL IVP (06:22)
[2025-05-11 07:24] VITALS: BP 192/82; PULSE 55; RESP 16; O2SAT 97
== END 2025-05-11 07:24 | disposition home or self-care (01) ==
PROVIDERS: Emergency Provider Emergency Medicine; PCP Internal Medicine
DX: G43.909 Migraine, unspecified, not intractable, without status migrainosus (principal); R11.0 Nausea; Z79.4 Long term (current) use of insulin; E11.9 Type 2 diabetes mellitus without complications
CPT/HCPCS: 36415; 36416; 82962; 96361; 96374; 96375; 99284; J0780; J1200; J1885

== ENCOUNTER 2025-05-24 18:51 | Emergency (ER) | payer OTHER, SELFPAY ==
[2025-05-24 18:54] VITALS: BP 183/103; PULSE 70; RESP 16; TEMP 36.8; O2SAT 93
--- NOTE | 2025-05-24 19:30 | DI.CT_ITS ---
Exam(s) CT HEAD WO EXAM: CT HEAD WO CLINICAL HISTORY: Headache. TECHNIQUE: Imaging Protocol: Axial computed tomography images with coronal and sagittal reformatted images were created and reviewed COMPARISON: CT CT ORBITS W from 10/03/[address] BRAIN NECK CTA from 02/01/2025 FINDINGS: Ventricles and Extra axial spaces: Normal in size and morphology for the patient's age. Hemorrhage: None. Cerebral parenchyma: There is no evidence of an acute territorial infarct or mass effect. Midline shift: None. Brainstem/Cerebellum: Normal. Calvarium: Normal. Visualized Paranasal sinuses/Mastoids: Clear. Soft Tissues: Unremarkable. IMPRESSION: 1. No acute intracranial process. 2. The preliminary [facility] report was reviewed. RADIATION DOSE DELIVERED: 950.92mGy.cm Total DLP DATA REPOSITORY: All CT scans at this facility are submitted to the National Radiology Data Registry (NRDR) Dose Index Registry (DIR) with the [employer] (ACR). RADIATION OPTIMIZATION: All CT scans at this facility use at least one of these dose optimization techniques: automated exposure control; mA and/or kV adjustment per patient size (includes targeted exams where dose is matched to clinical indication); or iterative reconstruction.
[2025-05-24] MEDS: Ketorolac 15 MG/ML VIAL IVP (19:52)
[2025-05-24] MEDS: Prochlorperazine 10 MG/2 ML VIAL 5 MG IVP (19:53)
[2025-05-24] MEDS: diphenhydrAMINE 50 MG/ML VIAL 25 MG IVP (19:54)
[2025-05-24] MEDS: Normal Saline 500 ML IV (19:55)
[2025-05-24] MEDS: SUMAtriptan 6 MG/0.5 ML VIAL SC (19:57)
--- NOTE | 2025-05-24 20:38 | W.ED.GENAD ---
Discharge Plan Disposition Patient Disposition: Home Condition: Stable Discharge Details Clinical Impression: Migraine headache Primary Care Provider: Kevin Lehman ED Provider: Sandrita Gautam Home Meds and New Rx's Prescriptions: Continued sumatriptan succinate 100 mg tablet 100 mg PO QDAY MDD 200mg PRN (Reason: migraine headache) Qty: 10 0RF Rx Instructions: Please take 1 daily as needed for headache may repeat in 2 hours Do not take more than 2 tablets in a 24-hour. No Action metoclopramide HCl 10 mg tablet 10 mg PO .tid ac Rx Instructions: administer 30 minutes before meals ondansetron 8 mg tablet,disintegrating 8 mg PO BID PRN (Reason: nausea and vomiting) Qty: 60 11RF ipratropium-albuterol 0.5 mg-3 mg(2.5 mg base)/3 mL solution for nebulization 3 ml inhalation QID PRN (Reason: wheezing) Qty: 180 1RF Rx Instructions: During asthma exacerbation, may use preventatively TID, titrating down to QID PRN as wheeze & SOB improve. atorvastatin 80 mg tablet 80 mg PO DAILY Qty: 90 3RF (DME) Dexcom G6 Sensor Device See Rx Instructions .ROUTE .COMPLEX Qty: 3 6RF Dose Instruction: USE DIRECTED Rx Instructions: USE DIRECTED methadone [Methadone Intensol] 10 mg/mL concentrate 77 mg PO DAILY naloxone [Narcan] 4 mg/actuation spray,non-aerosol 4 mg intranasal Q2M PRN (Reason: opioid overdose) Qty: 2 0RF Rx Instructions: spray 1 dose into ONE nostril; alternate nostrils w each dose until help arrives (DME) Dexcom G6 Transmitter Device See Rx Instructions .Route Qty: 3 3RF Rx Instructions: As directed pregabalin 200 mg capsule 200 mg PO TID Qty: 90 3RF Patient Comments: -- Pt states she is taking both pregabalin and gabapentin (DME) foam pillow triangular See Rx Instructions .Route .MEDSUPPLY Qty: 1 0RF Rx Instructions: Trial sleeping & resting (legs need elevation) @ 30-40' angle to alleviate SOB/Panic (DME) pen needle, diabetic [BD Ultra-Fine Yamini Pen Needle] 32 gauge x 5/32 needle See Rx Instructions .ROUTE .COMPLEX Qty: 100 0RF Dose Instruction: USE TO ADMINISTER INSULIN ONCE DAILY Rx Instructions: USE TO ADMINISTER INSULIN ONCE DAILY (DME) blood-glucose meter Misc See Rx Instructions .Route Qty: 1 0RF Rx Instructions: One Touch meter (DME) lancets Misc See Rx Instructions .ROUTE .MEDSUPPLY Qty: 400 3RF Rx Instructions: As directed to check blood glucose four times daily. On insulin. Dispense one touch ultra (DME) Blood Glucose Test Strip See Rx Instructions .MEDSUPPLY Qty: 400 3RF Rx Instructions: As directed to check blood glucose four times daily. On insulin. Dispense one touch ultra magnesium oxide 400 mg (241.3 mg magnesium) tablet 400 mg PO BID Qty: 180 0RF nystatin 100,000 unit/gram powder 1 applic Topical BID PRN (Reason: fungal skin infection) Qty: 30 3RF Rx Instructions: Apply powder to affected area under R breast twice daily polyethylene glycol 3350 [Miralax] 17 gram/dose powder 17 g PO DAILY PRN (Reason: constipation/gastroparesis) Qty: 238 0RF Ajovy Autoinjector 225 mg/1.5 mL auto-injector 225 mg subcut QMONTH Patient Comments: Pt has missed the last 2 months Botox 100 unit recon soln 300 unit IM ONCE Patient Comments: -- Pt's last dose was 3 months ago, next dose due anytime Rx Instructions: divided among affected muscles clonidine HCl 0.1 mg tablet 0.1 mg PO TID lurasidone 80 mg tablet 40 mg PO DAILY Patient Comments: TAKE ONE TABLET BY MOUTH EVERY DAY WITH AT LEAST 350 CALORIES furosemide 20 mg tablet 20 mg PO QAM metoprolol succinate 100 mg tablet extended release 24 hr 100 mg PO DAILY acyclovir 800 mg tablet 800 mg PO DAILY hydroxyzine pamoate 50 mg capsule 50 mg PO BID Patient Comments: TAKE ONE CAPSULE BY MOUTH TWICE A DAY dextroamphetamine-amphetamine 30 mg tablet 30 mg PO BID Patient Comments: TAKE ONE TABLET BY MOUTH TWICE A DAY @ 5am, 11am olmesartan 20 mg tablet 20 mg PO DAILY valacyclovir 1 gram tablet 1,000 mg PO DAILY PRN (Reason: for flares) Patient Comments: TAKE ONE TABLET BY MOUTH EVERY DAY prn flares methocarbamol 500 mg tablet 500 mg PO HS PRN (Reason: muscle spasm) Rx Instructions: Use lowest effective dose for shortest duration for muscle spasm omeprazole 40 mg capsule,delayed release(DR/EC) 40 mg PO BID acetaminophen 500 mg tablet 1,000 mg PO Q6H MDD 3000 mg PRN (Reason: fever or pain) Rx Instructions: 1 month supply lorazepam 0.5 mg tablet 0.5 mg PO DAILY PRN (Reason: dyspnea) Rx Instructions: Short term increase to BID PRN panic or shortness of breath orally daily PRN; (FYI to Prescriber @ [facility]) gabapentin 300 mg capsule 300 mg PO HS Patient Comments: -- Pt states she is taking both pregabalin and gabapentin albuterol sulfate 90 mcg/actuation HFA aerosol inhaler 2 puff Inhalation Q4H PRN (Reason: shortness of breath or wheezing) Rx Instructions: DISPENSE ALBUTEROL INHALER BRAND COVERED BY INSURANCE insulin aspart U-100 [Novolog FlexPen U-100 Insulin] 100 unit/mL (3 mL) insulin pen 10 - 15 unit subcut AC Rx Instructions: -- Pt uses 10-15 units sliding scale before meals Gvoke HypoPen 2-Pack 1 mg/0.2 mL auto-injector 1 mg subcut ONCE PRN (Reason: per hypoglycemic protocol) Rx Instructions: HYPOGLYCEMIA; as a single dose; may repeat once after 15 minutes if no response Natural Tears (PF) 0.1-0.3 % dropperette 1 drp ophthalmic (eye) QID PRN Discharge Instructions Instructions: Using Cold for Pain, Headache, Adult ED Additional Instructions: A refill of your sumatriptan was sent to the pharmacy on file. Please take it as directed. You may also take Benadryl 1 tablet every 6-8 hours as needed for onset of headache. Increase oral fluids. Follow up with primary care provider in 3-5 days. Return to ED sooner if any worsening or concerns. Please take Tylenol or Ibuprofen with food every 4-6 hours as needed for pain and swelling. CT of your Head shows no intracranial abnormality. Referrals: Kevin Lehman DO [Primary Care Provider, Medicine] - 5 days Referral Note: ER follow up Headache, Call for appointment Clinical Impression: Migraine headache Discharge Data Discharge Date/Time-TO BE ENTERED AT DEPARTURE: 05/24/25 21:48 HPI General Mode of arrival: ambulatory. Date/Time Provider Initiated Documentation: 05/24/25 18:52. Limitations to Documentation: no limitations. Information obtained by: patient, RN notes reviewed and old records reviewed. HPI Narrative: 44-year-old female presents to the ER with chief complaint of right-sided migraine headache for the last week. Positive photosensitivity and sensitivity to sound. She has been out of her sumatriptan for the last 2 days. Does endorse nausea and vomiting denies any recent head injuries or trauma. She does have significant past medical history with multiple comorbidities including cirrhosis, type 2 diabetes, hyperlipidemia, asthma, history of migraines, hepatitis C. Patient states that she usually gets Botox injections which she missed due to recent hospitalization. She is due for another Botox injection for migraines in approximately 1 month. On arrival she does appear somewhat sleepy however she reports that she has not been sleeping well. Related Data Home Medications ?Medication ?Instructions ?Recorded ?Confirmed pen needle, diabetic 32 gauge x #100 ea 06/30/23 05/25/25/ (BD Ultra-Fine Yamini Pen Needle) blood-glucose meter #1 ea 08/28/23 05/25/25 lancets #400 ea 08/28/23 05/25/25 naloxone 4 mg/actuation nasal 4 mg intranasal Q2M PRN opioid 02/13/24 05/25/25 spray (Narcan) overdose #2 ea blood sugar diagnostic (Blood #400 ea 04/26/24 05/25/25 Glucose Test strips) magnesium oxide 400 mg (241.3 mg 400 mg PO BID #180 tabs 04/26/24 05/25/25 magnesium) tablet nystatin 100,000 unit/gram topical 1 applic topical BID PRN fungal 05/25/24 05/25/25 powder skin infection #30 grams ipratropium 0.5 mg-albuterol 3 mg 3 ml inhalation QID PRN wheezing 05/31/24 05/25/25 (2.5 mg base)/3 mL nebulization #180 mL soln metoclopramide HCl 10 mg tablet 10 mg PO .tid ac 05/31/24 05/25/25 ondansetron 8 mg disintegrating 8 mg PO BID PRN nausea and 05/31/24 05/25/25 tablet vomiting #60 tabs fremanezumab-vfrm 225 mg/1.5 mL 225 mg subcut QMONTH 06/07/24 05/25/25 subcutaneous auto-injector (Ajovy) onabotulinumtoxinA 100 unit 300 unit IM ONCE 06/07/24 05/25/25 solution for injection (Botox) lurasidone 80 mg tablet 40 mg PO DAILY 06/08/24 05/25/25 atorvastatin 80 mg tablet 80 mg PO DAILY #90 tabs 06/23/24 05/25/25 blood-glucose sensor (Dexcom G6 #3 ea 06/23/24 05/25/25 Sensor device) methadone 10 mg/mL oral 77 mg PO DAILY 06/23/24 05/25/25 concentrate (Methadone Intensol) blood-glucose transmitter (Dexcom #3 ea 07/07/24 05/25/25 G6 Transmitter device) foam pillow #1 ea 07/07/24 05/25/25 pregabalin 200 mg capsule 200 mg PO TID #90 caps 07/07/24 05/25/25 polyethylene glycol 3350 17 17 g PO DAILY PRN 08/02/24 05/25/25 gram/dose oral powder (Miralax) constipation/gastroparesis #238 grams clonidine HCl 0.1 mg tablet 0.1 mg PO TID 09/19/24 05/25/25 acetaminophen 500 mg tablet 1,000 mg PO Q6H PRN fever or pain 01/16/25 05/25/25 acyclovir 800 mg tablet 800 mg PO DAILY 01/16/25 05/25/25 albuterol sulfate 90 mcg/actuation 2 puff inhalation Q4H PRN 01/16/25 05/25/25 aerosol inhaler shortness of breath or wheezing dextran 70-hypromellose (PF) 0.1 1 drp ophthalmic (eye) QID PRN 01/16/25 05/25/25 %-0.3 % eye drops in a dropperette (Natural Tears (PF)) dextroamphetamine-amphetamine 30 30 mg PO BID 01/16/25 05/25/25 mg tablet furosemide 20 mg tablet 20 mg PO QAM 01/16/25 05/25/25 gabapentin 300 mg capsule 300 mg PO HS back pain 01/16/25 05/25/25 glucagon 1 mg/0.2 mL subcutaneous 1 mg subcut ONCE PRN per 01/16/25 05/25/25 auto-injector (Gvoke HypoPen hypoglycemic protocol 2-Pack) hydroxyzine pamoate 50 mg capsule 50 mg PO BID 01/16/25 05/25/25 insulin aspart U-100 100 unit/mL 10 - 15 unit subcut AC 01/16/25 05/25/25 (3 mL) subcutaneous pen (Novolog FlexPen U-100 Insulin aspart) lorazepam 0.5 mg tablet 0.5 mg PO DAILY PRN dyspnea 01/16/25 05/25/25 methocarbamol 500 mg tablet 500 mg PO HS PRN muscle spasm 01/16/25 05/25/25 metoprolol succinate 100 mg 100 mg PO DAILY 01/16/25 05/25/25 tablet,extended release 24 hr olmesartan 20 mg tablet 20 mg PO DAILY 01/16/25 05/25/25 omeprazole 40 mg capsule,delayed 40 mg PO BID 01/16/25 05/25/25 release valacyclovir 1 gram tablet 1,000 mg PO DAILY PRN for flares 01/16/25 05/25/25 sumatriptan succinate 100 mg tablet 100 mg PO QDAY PRN migraine 05/24/25 05/25/25 headache #10 tabs Previous Rx's ?Medication ?Instructions ?Recorded pen needle, diabetic 32 gauge x #100 ea 06/30/23 (BD Ultra-Fine Yamini Pen Needle) blood-glucose meter #1 ea 08/28/23 lancets #400 ea 08/28/23 naloxone 4 mg/actuation nasal 4 mg intranasal Q2M PRN opioid 02/13/24 spray (Narcan) overdose #2 ea blood sugar diagnostic (Blood #400 ea 04/26/24 Glucose Test strips) magnesium oxide 400 mg (241.3 mg 400 mg PO BID #180 tabs 04/26/24 magnesium) tablet nystatin 100,000 unit/gram topical 1 applic topical BID PRN fungal 05/25/24 powder skin infection #30 grams ipratropium 0.5 mg-albuterol 3 mg 3 ml inhalation QID PRN wheezing 05/31/24 (2.5 mg base)/3 mL nebulization #180 mL soln ondansetron 8 mg disintegrating 8 mg PO BID PRN nausea and 05/31/24 tablet vomiting #60 tabs atorvastatin 80 mg tablet 80 mg PO DAILY #90 tabs 06/23/24 blood-glucose sensor ([employer] G6 #3 ea 06/23/24 Sensor device) blood-glucose transmitter (Dexcom #3 ea 07/07/24 G6 Transmitter device) foam pillow #1 ea 07/07/24 pregabalin 200 mg capsule 200 mg PO TID #90 caps 07/07/24 polyethylene glycol 3350 17 17 g PO DAILY PRN 08/02/24 gram/dose oral powder (Miralax) constipation/gastroparesis #238 grams sumatriptan succinate 100 mg tablet 100 mg PO QDAY PRN migraine 05/24/25 headache #10 tabs Allergies Allergy/AdvReac Type Severity Reaction Status Date / Time Penicillins Allergy Severe lip and Verified 05/25/25 21:53 facial swelling lamotrigine (From Lamictal) Allergy Unknown Skin Rash Verified 05/25/25 21:53 clindamycin AdvReac Severe Nausea & Verified 05/25/25 21:53 vomiting aspirin AdvReac Intermediate nausea/pain Verified 05/25/25 21:53 General Stated Complaint: Headache CARLOS: 3 Review of Systems All systems reviewed & are unremarkable except as noted in HPI and below Constitutional Constitutional: Reports as per HPI, Reports fatigue and Reports headache(s) ENT Ears, Nose, Mouth, and Throat: Reports headache(s) Gastrointestinal Gastrointestinal: Reports nausea Neurologic Neurologic: Reports headache(s) Endocrine Endocrine: Reports fatigue Exam Narrative Exam Narrative: Constitutional: Appears Tired, reports trouble sleeping, Appears stated age. Obese body habitus. Appears chronically ill. Head: Normocephalic, no trauma. Eyes: Pupils PERRL, Red reflex noted, EOM's intact. Eyelids symmetrical without lesions, discharge, or swelling. ENT: Bilateral TM's WNL, External ear normal to inspection, no mastoid TTP, swelling, or erythema, Nasal turbinates WNL, no nasal discharge. Normal dentition, Posterior pharynx WNL, no exudate. Chest: RRR, Normal S1, S2, distal pulses intact. Resp: Lungs clear to auscultation bilaterally, no wheezes, rales, or rhonchi. Abdomen: Soft, non-distended, Normoactive bowel sounds all 4 quads. Musculoskeletal: Normal gait, Moves all 4 extremities without difficulty. Skin: No suspicious rashes or lesions. Capillary refill less than 2 sec. Neurologic: Cranial nerves II-XII intact. Alert and oriented x 3. Motor: No focal motor deficits noted. Sensory: Intact bilaterally all 4 extremities. Hematologic/Lymphatic: No ecchymosis, no lymphadenopathy. Course Vital Signs Vital signs: Vital Signs Temperature 36.8 C 05/24/25 18:54 Pulse 70 05/24/25 18:54 Respiratory Rate 16 05/24/25 18:54 Blood Pressure 183/103 H 05/24/25 18:54 Pulse Oximetry 93 05/24/25 18:54 Temperature 36.8 C 05/24/25 18:54 Temperature Source Oral 05/24/25 18:54 Pulse 70 05/24/25 18:54 Respiratory Rate 16 05/24/25 18:54 Blood Pressure 183/103 H 05/24/25 18:54 Pulse Oximetry 93 05/24/25 18:54 Oxygen Delivery Method Room Air 05/24/25 18:54 Oxygen Flow Rate 0 05/24/25 18:54 Pain Level 9 05/24/25 20:03 Medical Decision Making 44-year-old female presents to the ER with chief complaint of right-sided migraine headache for the last week. Positive photosensitivity and sensitivity to sound. She has been out of her sumatriptan for the last 2 days. Does endorse nausea and vomiting denies any recent head injuries or trauma. She does have significant past medical history with multiple comorbidities including cirrhosis, type 2 diabetes, hyperlipidemia, asthma, history of migraines, hepatitis C. Patient states that she usually gets Botox injections which she missed due to recent hospitalization. She is due for another Botox injection for migraines in approximately 1 month. On arrival she does appear somewhat sleepy however she reports that she has not been sleeping well. CT head ordered, IV 1 L normal saline, 5 mg Compazine, 25 mg IV diphenhydramine, and 15 mg Toradol. 6 mg of sumatriptan subcu ordered. CT shows no acute abnormality. On patient reevaluation she reports she is feeling much better. She is requesting to be discharged from department. Discharged from department with strict return instructions, and instructions to follow-up closely with her PCP. She verbalized understanding. This text was generated using [employer] system, please disregard any oddities of phrase or misspellings. PFSH All Active Problems (Updated 05/25/25 @ 23:37 by John Mayorga DO) Increased intraocular pressure (Acute) Headache (Acute) Migraine headache (Chronic) Dyspareunia in female (Acute 07/09/17) Diabetic foot ulcer (Acute) Orthopnea (Acute) Edema of both lower legs (Acute) l>r .. chf? INACTIVITY? Fatty infiltration of liver (Acute) Hx cirrhosis? 2' pancreatitis (05/2024)? Obstructive sleep apnea of adult (Acute) [facility] 12/23/23 Diabetic cataract of right eye (Acute) Ulcer of right foot limited to breakdown of skin (Acute 04/16/23) [facility] Ulcer of left foot, limited to breakdown of skin (Acute 04/16/23) [facility] Iron deficiency (Acute) 03/2023 iron studies indicating deficiency (NOT anemic) Chronic constipation (Chronic) [facility] GI Obesity (Chronic) Diabetic neuropathy (Acute) Tobacco use disorder (Chronic) Started smoking age 9 Polypharmacy (Chronic 12/14/15) Mild nonproliferative diabetic retinopathy associated with type 2 diabetes mellitus (Chronic 01/22/16) Depressive disorder (Chronic 10/31/14) ADMISSION SUICIDAL THOUGHTS 06/13/14 OD ATTEMPTS IN PAST Chronic nausea (Chronic) EGD 04/16/16 Dr. 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) Medical History Asthma Cirrhosis of liver [facility] Mental health disorder Pt reports being diagnosed with bipolar disorder, disassociative disorder, anxiety, & multiple personality disorder Gastroparesis (06/28/16) 03/17/[address] 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) Takes daily suppression Hyperlipidemia (09/30/16) 10-year ASCVD risk = unable to calculate due to not being age 40+ however dx T2DM, so Rx for statin Type 2 diabetes mellitus, with long-term current use of insulin With neuropathy & retinopathy (left, mild) Migraine [facility] Neuro Opioid use disorder MAT with methadone Chronic fatigue (07/19/15) Osteomyelitis Ulcer of foot due to secondary diabetes Umbilical hernia (03/11/18) 03/17/2018: [facility] Premature surgical menopause JAD/BSO in late 20s, no HRT Hepatitis C 02/14/2016 labwork: undetectable RNA level Surgical History S/P cholecystectomy (06/12/24) Dr Reyes Status post total hysterectomy and bilateral salpingo-oophorectomy (~2006) noncancerous reasons Status post left foot surgery (10/2022) Left fourth metatarsal head excision for chronic ulcer, osteomyelitis ([facility]/Tamia Vidales DPM) Status post section (~2003) EGD (04/16/16) Dr. Ferrer Family History Mother , 46yo due to kidney & liver failure due to alcohol Substance use disorder Alcohol use disorder Father , 62yo from ALS Substance use disorder Alcohol use disorder ALS (amyotrophic lateral sclerosis) Grandmother Colon cancer Paternal Paternal Uncle Cardiac arrest Substance use disorder Alcohol and Pain Medication Abuse Social History Smoking/Tobacco Use Status: Current every day Tobacco Type: cigarettes Smoking packs per day: 1 Smoking cigarettes per day: 20.0 Years smoked: 34 Smoking pack-years: 34.00 Tobacco: How many years used: 33 Quit status: considering quitting Smoking risk assessment performed?: Yes Alcohol Intake: never Drug use: Occasionally Substance use type: former substance user and marijuana Details: Pt. 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 Pets and animals: Yes (1 dog, 4 cats) Pets and animals: cat(s) and dog(s) Sexually active: Yes Do you think of yourself as: straight/heterosexual Current gender identity: female Other: 09/2022: pt reports she is engaged What is your relationship status?: How often do you talk on the phone with friends or family?: three or more times per week How often do you get together with friends or relatives?: once per week How often do you attend buddhism or cheondoism services?: decline to answer Do you belong to any clubs or organized social groups?: no Panel score (0-1 are the most socially isolated patients): 2 What type of physical activity do you participate in: none Duration: decline to answer Frequency: decline to answer Seatbelt use: always Helmet use: No (No reason to wear one) Drive intox or ride w/intox route driver coin machines: No Do you feel safe at home: Yes Do you feel safe in your relationship?: Yes
--- NOTE | 2025-05-24 21:01 | DI.[facility]_ITS ---
PROCEDURE INFORMATION: Exam: CT Head Without Contrast Exam date and time: 05/24/2025 8:25 PM Age: 44 years old Clinical indication: Pain; Headache; Migraine; Aura effect not specified; Other: Unknown TECHNIQUE: Imaging protocol: Computed tomography of the head without contrast. Radiation optimization: All CT scans at this facility use at least one of these dose optimization techniques: automated exposure control; mA and/or kV adjustment per patient size (includes targeted exams where dose is matched to clinical indication); or iterative reconstruction. COMPARISON: CT BRAIN NECK CTA 02/01/2025 7:21 PM FINDINGS: Brain: There is no acute intracranial hemorrhage, mass effect or midline shift. There is no large acute territorial cerebral infarct. Cerebral ventricles: No ventriculomegaly. Paranasal sinuses: Visualized sinuses are unremarkable. No fluid levels. Mastoid air cells: Visualized mastoid air cells are well aerated. Bones: Unremarkable. No acute fracture. Soft tissues: Unremarkable. IMPRESSION: No acute intracranial hemorrhage, mass effect or midline shift. Dictated and Authenticated by: Christina Vegas MD. Orderin Dain Remy MD
== END 2025-05-24 21:48 | disposition home or self-care (01) ==
PROVIDERS: Emergency Provider Registered Nurse Emergency; PCP Internal Medicine
DX: G43.909 Migraine, unspecified, not intractable, without status migrainosus (principal); E11.9 Type 2 diabetes mellitus without complications; Z91.148 Patient's other noncompliance with medication regimen for other reason
CPT/HCPCS: 99284 ×2; 96372; 96374; 96375; 96361; 70450; J0780; J1200; J1885; J3030

== ENCOUNTER 2025-05-25 21:45 | Emergency (ER) | payer OTHER, SELFPAY ==
[2025-05-25 21:48] VITALS: BP 161/103; PULSE 74; RESP 16; TEMP 37; O2SAT 93
[2025-05-25 21:52] VITALS: BP 161/103; PULSE 74; RESP 16; TEMP 36.8; O2SAT 93
[2025-05-25] MEDS: Normal Saline 500 ML IV (22:49)
[2025-05-25] MEDS: Ondansetron 4 MG/2 ML VIAL IVP (22:49)
[2025-05-25] MEDS: diphenhydrAMINE 50 MG/ML VIAL 25 MG IVP (22:50)
[2025-05-25] MEDS: Ketorolac 15 MG/ML VIAL IVP (22:51)
[2025-05-25] MEDS: Prochlorperazine 10 MG/2 ML VIAL IVP (22:52)
[2025-05-25] MEDS: methylPREDNISolone SUCC 125 MG VIAL IVP (22:54)
[2025-05-25] MEDS: SUMAtriptan 50 MG TAB 100 MG PO (23:04)
--- NOTE | 2025-05-25 23:14 | W.ED.GENAD ---
Discharge Plan Disposition Patient Disposition: Home Condition: Good Discharge Details Clinical Impression: Headache, Increased intraocular pressure Primary Care Provider: Kevin Lehman ED Provider: John Mayorga Home Meds and New Rx's Prescriptions: No Action metoclopramide HCl 10 mg tablet 10 mg PO .tid ac Rx Instructions: administer 30 minutes before meals ondansetron 8 mg tablet,disintegrating 8 mg PO BID PRN (Reason: nausea and vomiting) Qty: 60 11RF ipratropium-albuterol 0.5 mg-3 mg(2.5 mg base)/3 mL solution for nebulization 3 ml inhalation QID PRN (Reason: wheezing) Qty: 180 1RF Rx Instructions: During asthma exacerbation, may use preventatively TID, titrating down to QID PRN as wheeze & SOB improve. atorvastatin 80 mg tablet 80 mg PO DAILY Qty: 90 3RF (DME) Dexcom G6 Sensor Device See Rx Instructions .ROUTE .COMPLEX Qty: 3 6RF Dose Instruction: USE DIRECTED Rx Instructions: USE DIRECTED methadone [Methadone Intensol] 10 mg/mL concentrate 77 mg PO DAILY naloxone [Narcan] 4 mg/actuation spray,non-aerosol 4 mg intranasal Q2M PRN (Reason: opioid overdose) Qty: 2 0RF Rx Instructions: spray 1 dose into ONE nostril; alternate nostrils w each dose until help arrives (DME) Dexcom G6 Transmitter Device See Rx Instructions .Route Qty: 3 3RF Rx Instructions: As directed pregabalin 200 mg capsule 200 mg PO TID Qty: 90 3RF Patient Comments: -- Pt states she is taking both pregabalin and gabapentin (DME) foam pillow triangular See Rx Instructions .Route .MEDSUPPLY Qty: 1 0RF Rx Instructions: Trial sleeping & resting (legs need elevation) @ 30-40' angle to alleviate SOB/Panic (DME) pen needle, diabetic [BD Ultra-Fine Yamini Pen Needle] 32 gauge x 5/32 needle See Rx Instructions .ROUTE .COMPLEX Qty: 100 0RF Dose Instruction: USE TO ADMINISTER INSULIN ONCE DAILY Rx Instructions: USE TO ADMINISTER INSULIN ONCE DAILY (DME) blood-glucose meter Misc See Rx Instructions .Route Qty: 1 0RF Rx Instructions: One Touch meter (DME) lancets Misc See Rx Instructions .ROUTE .MEDSUPPLY Qty: 400 3RF Rx Instructions: As directed to check blood glucose four times daily. On insulin. Dispense one touch ultra (DME) Blood Glucose Test Strip See Rx Instructions .MEDSUPPLY Qty: 400 3RF Rx Instructions: As directed to check blood glucose four times daily. On insulin. Dispense one touch ultra magnesium oxide 400 mg (241.3 mg magnesium) tablet 400 mg PO BID Qty: 180 0RF nystatin 100,000 unit/gram powder 1 applic Topical BID PRN (Reason: fungal skin infection) Qty: 30 3RF Rx Instructions: Apply powder to affected area under R breast twice daily polyethylene glycol 3350 [Miralax] 17 gram/dose powder 17 g PO DAILY PRN (Reason: constipation/gastroparesis) Qty: 238 0RF Ajovy Autoinjector 225 mg/1.5 mL auto-injector 225 mg subcut QMONTH Patient Comments: Pt has missed the last 2 months Botox 100 unit recon soln 300 unit IM ONCE Patient Comments: -- Pt's last dose was 3 months ago, next dose due anytime Rx Instructions: divided among affected muscles clonidine HCl 0.1 mg tablet 0.1 mg PO TID sumatriptan succinate 100 mg tablet 100 mg PO QDAY MDD 200mg PRN (Reason: migraine headache) Qty: 10 0RF Rx Instructions: Please take 1 daily as needed for headache may repeat in 2 hours Do not take more than 2 tablets in a 24-hour. lurasidone 80 mg tablet 40 mg PO DAILY Patient Comments: TAKE ONE TABLET BY MOUTH EVERY DAY WITH AT LEAST 350 CALORIES furosemide 20 mg tablet 20 mg PO QAM metoprolol succinate 100 mg tablet extended release 24 hr 100 mg PO DAILY acyclovir 800 mg tablet 800 mg PO DAILY hydroxyzine pamoate 50 mg capsule 50 mg PO BID Patient Comments: TAKE ONE CAPSULE BY MOUTH TWICE A DAY dextroamphetamine-amphetamine 30 mg tablet 30 mg PO BID Patient Comments: TAKE ONE TABLET BY MOUTH TWICE A DAY @ 5am, 11am olmesartan 20 mg tablet 20 mg PO DAILY valacyclovir 1 gram tablet 1,000 mg PO DAILY PRN (Reason: for flares) Patient Comments: TAKE ONE TABLET BY MOUTH EVERY DAY prn flares methocarbamol 500 mg tablet 500 mg PO HS PRN (Reason: muscle spasm) Rx Instructions: Use lowest effective dose for shortest duration for muscle spasm omeprazole 40 mg capsule,delayed release(DR/EC) 40 mg PO BID acetaminophen 500 mg tablet 1,000 mg PO Q6H MDD 3000 mg PRN (Reason: fever or pain) Rx Instructions: 1 month supply lorazepam 0.5 mg tablet 0.5 mg PO DAILY PRN (Reason: dyspnea) Rx Instructions: Short term increase to BID PRN panic or shortness of breath orally daily PRN; (FYI to Prescriber @ [facility]) gabapentin 300 mg capsule 300 mg PO HS Patient Comments: -- Pt states she is taking both pregabalin and gabapentin albuterol sulfate 90 mcg/actuation HFA aerosol inhaler 2 puff Inhalation Q4H PRN (Reason: shortness of breath or wheezing) Rx Instructions: DISPENSE ALBUTEROL INHALER BRAND COVERED BY INSURANCE insulin aspart U-100 [Novolog FlexPen U-100 Insulin] 100 unit/mL (3 mL) insulin pen 10 - 15 unit subcut AC Rx Instructions: -- Pt uses 10-15 units sliding scale before meals Gvoke HypoPen 2-Pack 1 mg/0.2 mL auto-injector 1 mg subcut ONCE PRN (Reason: per hypoglycemic protocol) Rx Instructions: HYPOGLYCEMIA; as a single dose; may repeat once after 15 minutes if no response Natural Tears (PF) 0.1-0.3 % dropperette 1 drp ophthalmic (eye) QID PRN Discharge Instructions Instructions: Headaches in adults Additional Instructions: At this time your headache symptoms have improved, however measurement of your intraocular pressure does show an increase compared to our last visit together over a year ago. We have placed a referral with [facility], please follow-up closely with their office for further monitoring and management. Please follow-up closely with your neurologist for further discussion of continued abortive medication needs. If you notice any worsening of your symptoms, or any new symptoms such as vomiting, diarrhea, fever, chills, shortness of breath, chest pain, numbness, weakness, or fainting , please return immediately to the emergency department for reevaluation. Please follow up with your primary care provider as soon as possible for reassessment and reevaluation. As always, it was a pleasure participating in your medical care today. Referrals: [facility] [Outside] Kevin Lehman DO [Primary Care Provider, Medicine] [facility] General Date/Time Provider Initiated Documentation: 05/25/25 22:07. HPI Narrative: 44-year-old female with a past medical history of chronic recurrent migraines that occur relatively every week, currently on migraine abortive medications, managed by neurology, type 2 diabetes, high cholesterol, asthma, obesity, who is not on any blood thinners, chronic methadone use, hepatitis C, and hysterectomy and bilateral salpingo-oophorectomy, presents today for headache. Patient normally receives Botox injections and has abortive Imitrex to use as needed. She developed a headache about 1 week ago. She states that it feels identical to her previous migraines. She has taken NSAID therapy as well as her Imitrex but is now out of all of her Imitrex. She has not taken any for the last week. Her headache is sharp and achy in nature mainly in the right frontal aspect of her head and then a mild amount of tightness on the right lateral posterior aspect. Headache is made worse with light and loud noise. It is improved with her migraine medications, and rest. However this episode has been quite more persistent than normal. She came to the ED last night and was seen and assessed by my colleague. She had an appropriately thorough workup which included negative CT imaging of her head, she was given IV fluids Compazine Benadryl Toradol 6 mg of sumatriptan subcu. She had complete resolution of her headache at that time, and then this morning she woke up and it was persistent again. She denies any fever or chills at this time. She was afebrile yesterday and is also afebrile today. She has had a lumbar puncture before and would like to avoid this. She has no other complaints at this time. The patient denies any headache red flags of worst headache of life, thunderclap headache, neck pain, fever, chills, concerning family history of polycystic kidney disease, Marfan syndrome, Gayatir-Danlos syndrome, abdominal aortic aneurysm, aortic dissection, or intracranial aneurysm. Related Data Home Medications ?Medication ?Instructions ?Recorded ?Confirmed pen needle, diabetic 32 gauge x #100 ea 06/30/23 05/25/25 (BD Ultra-Fine Yamini Pen Needle) blood-glucose meter #1 ea 08/28/23 05/25/25 lancets #400 ea 08/28/23 05/25/25 naloxone 4 mg/actuation nasal 4 mg intranasal Q2M PRN opioid 02/13/24 05/25/25 spray (Narcan) overdose #2 ea blood sugar diagnostic (Blood #400 ea 04/26/24 05/25/25 Glucose Test strips) magnesium oxide 400 mg (241.3 mg 400 mg PO BID #180 tabs 04/26/24 05/25/25 magnesium) tablet nystatin 100,000 unit/gram topical 1 applic topical BID PRN fungal 05/25/24 05/25/25 powder skin infection #30 grams ipratropium 0.5 mg-albuterol 3 mg 3 ml inhalation QID PRN wheezing 05/31/24 05/25/25 (2.5 mg base)/3 mL nebulization #180 mL soln metoclopramide HCl 10 mg tablet 10 mg PO .tid ac 05/31/24 05/25/25 ondansetron 8 mg disintegrating 8 mg PO BID PRN nausea and 05/31/24 05/25/25 tablet vomiting #60 tabs fremanezumab-vfrm 225 mg/1.5 mL 225 mg subcut QMONTH 06/07/24 05/25/25 subcutaneous auto-injector (Ajovy) onabotulinumtoxinA 100 unit 300 unit IM ONCE 06/07/24 05/25/25 solution for injection (Botox) lurasidone 80 mg tablet 40 mg PO DAILY 06/08/24 05/25/25 atorvastatin 80 mg tablet 80 mg PO DAILY #90 tabs 06/23/24 05/25/25 blood-glucose sensor (Dexcom G6 #3 ea 06/23/24 05/25/25 Sensor device) methadone 10 mg/mL oral 77 mg PO DAILY 06/23/24 05/25/25 concentrate (Methadone Intensol) blood-glucose transmitter (Dexcom #3 ea 07/07/24 05/25/25 G6 Transmitter device) foam pillow #1 ea 07/07/24 05/25/25 pregabalin 200 mg capsule 200 mg PO TID #90 caps 07/07/24 05/25/25 polyethylene glycol 3350 17 17 g PO DAILY PRN 08/02/24 05/25/25 gram/dose oral powder (Miralax) constipation/gastroparesis #238 grams clonidine HCl 0.1 mg tablet 0.1 mg PO TID 09/19/24 05/25/25 acetaminophen 500 mg tablet 1,000 mg PO Q6H PRN fever or pain 01/16/25 05/25/25 acyclovir 800 mg tablet 800 mg PO DAILY 01/16/25 05/25/25 albuterol sulfate 90 mcg/actuation 2 puff inhalation Q4H PRN 01/16/25 05/25/25 aerosol inhaler shortness of breath or wheezing dextran 70-hypromellose (PF) 0.1 1 drp ophthalmic (eye) QID PRN 01/16/25 05/25/25 %-0.3 % eye drops in a dropperette (Natural Tears (PF)) dextroamphetamine-amphetamine 30 30 mg PO BID 01/16/25 05/25/25 mg tablet furosemide 20 mg tablet 20 mg PO QAM 01/16/25 05/25/25 gabapentin 300 mg capsule 300 mg PO HS back pain 01/16/25 05/25/25 glucagon 1 mg/0.2 mL subcutaneous 1 mg subcut ONCE PRN per 01/16/25 05/25/25 [facility]injector ([facility]) hydroxyzine pamoate 50 mg capsule 50 mg PO BID 01/16/25 05/25/25 insulin aspart U-100 100 unit/mL 10 - 15 unit subcut AC 01/16/25 05/25/25 (3 mL) subcutaneous pen (Novolog FlexPen U-100 Insulin aspart) lorazepam 0.5 mg tablet 0.5 mg PO DAILY PRN dyspnea 01/16/25 05/25/25 methocarbamol 500 mg tablet 500 mg PO HS PRN muscle spasm 01/16/25 05/25/25 metoprolol succinate 100 mg 100 mg PO DAILY 01/16/25 05/25/25 tablet,extended release 24 hr olmesartan 20 mg tablet 20 mg PO DAILY 01/16/25 05/25/25 omeprazole 40 mg capsule,delayed 40 mg PO BID 01/16/25 05/25/25 release valacyclovir 1 gram tablet 1,000 mg PO DAILY PRN for flares 01/16/25 05/25/25 sumatriptan succinate 100 mg tablet 100 mg PO QDAY PRN migraine 05/24/25 05/25/25 headache #10 tabs Previous Rx's ?Medication ?Instructions ?Recorded pen needle, diabetic 32 gauge x #100 ea 06/30/23 5/32 (BD Ultra-Fine Yamini Pen Needle) blood-glucose meter #1 ea 08/28/23 lancets #400 ea 08/28/23 naloxone 4 mg/actuation nasal 4 mg intranasal Q2M PRN opioid 02/13/24 spray (Narcan) overdose #2 ea blood sugar diagnostic (Blood #400 ea 04/26/24 Glucose Test strips) magnesium oxide 400 mg (241.3 mg 400 mg PO BID #180 tabs 04/26/24 magnesium) tablet nystatin 100,000 unit/gram topical 1 applic topical BID PRN fungal 05/25/24 powder skin infection #30 grams ipratropium 0.5 mg-albuterol 3 mg 3 ml inhalation QID PRN wheezing 05/31/24 (2.5 mg base)/3 mL nebulization #180 mL soln ondansetron 8 mg disintegrating 8 mg PO BID PRN nausea and 05/31/24 tablet vomiting #60 tabs atorvastatin 80 mg tablet 80 mg PO DAILY #90 tabs 06/23/24 blood-glucose sensor (Dexcom G6 #3 ea 06/23/24 Sensor device) blood-glucose transmitter (Dexcom #3 ea 07/07/24 G6 Transmitter device) foam pillow #1 ea 07/07/24 pregabalin 200 mg capsule 200 mg PO TID #90 caps 07/07/24 polyethylene glycol 3350 17 17 g PO DAILY PRN 08/02/24 gram/dose oral powder (Miralax) constipation/gastroparesis #238 grams sumatriptan succinate 100 mg tablet 100 mg PO QDAY PRN migraine 05/24/25 headache #10 tabs Allergies Allergy/AdvReac Type Severity Reaction Status Date / Time Penicillins Allergy Severe lip and Verified 05/25/25 21:53 facial swelling lamotrigine (From Lamictal) Allergy Unknown Skin Rash Verified 05/25/25 21:53 clindamycin AdvReac Severe Nausea & Verified 05/25/25 21:53 vomiting aspirin AdvReac Intermediate nausea/pain Verified 05/25/25 21:53 General Stated Complaint: Headache CARLOS: 3 Exam Narrative Exam Narrative: 1.Const: Well-nourished, Well-developed, appearing stated age 2.Eyes: PERRL, no conjunctival injection, and symmetrical lids. 3.ENT: Atraumatic external nose and ears. Moist MM. Neck: Symmetric, trachea midline, No thyromegaly. Patient demonstrates good movement of cervical neck. There is no nuchal rigidity, no nuchal tenderness. Patient is able to flex the neck without any difficulty or significant pain. Negative Kernig's and Brudzinski sign. 4.CVS: +S1/S2, Peripheral pulses 2+ and equal in all extremities. Brisk capillary refill in all extremities. 5.RESP: Unlabored respiratory effort. Clear to auscultation bilaterally. No wheezes rales or rhonchi 6.GI: Soft, Nontender/Nondistended, No hepatosplenomegaly. No guarding or rebound. 7.MSK: Normocephalic/Atraumatic, Extremities w/o deformity or ttp No cyanosis or clubbing, Normal movement of all extremities 8.Skin: Warm, Dry. No rashes or lesions. 9.Neuro: velocity shooter II-XII grossly intact. Sensation grossly intact, no focal neurologic deficits. All 6 cardinal planes of vision are fully intact. No evidence of rotatory or vertical nystagmus. The patient demonstrated a normal kyqtwc-qbon-rwgenz, good dexterity. There was no evidence of dysdiadochokinesia. Patient was able to ambulate without difficulty. There was no wide-based gait. Romberg testing was normal. Vkfu-gf-rdld testing was normal. Sensation was intact bilaterally as well as muscle strength bilaterally for all extremities. Patient was able to verbalize butter cup with no slurring, or miss pronunciation. 10.Psych: (AAO) x3. Appropriate mood and affect Course Vital Signs Vital signs: Vital Signs Temperature 37.0 C 05/25/25 21:48 Pulse 74 05/25/25 21:48 Respiratory Rate 16 05/25/25 21:48 Blood Pressure 161/103 H 05/25/25 21:48 Pulse Oximetry 93 05/25/25 21:48 Temperature 36.8 C 05/25/25 21:52 Temperature Source Oral 05/25/25 21:52 Pulse 74 05/25/25 21:52 Respiratory Rate 16 05/25/25 21:52 Blood Pressure 161/103 H 05/25/25 21:52 Blood Pressure Position Sitting 05/25/25 21:52 Pulse Oximetry 93 05/25/25 21:52 Oxygen Delivery Method Room Air 05/25/25 21:52 Oxygen Flow Rate 0 05/25/25 21:48 Pain Level 8 05/25/25 22:58 Medical Decision Making 44-year-old female with a past medical history of chronic recurrent migraines that occur relatively every week, currently on migraine abortive medications, managed by neurology, type 2 diabetes, high cholesterol, asthma, obesity, who is not on any blood thinners, chronic methadone use, hepatitis C, and hysterectomy and bilateral salpingo-oophorectomy, presents today for headache. Patient normally receives Botox injections and has abortive Imitrex to use as needed. She developed a headache about 1 week ago. She states that it feels identical to her previous migraines. She has taken NSAID therapy as well as her Imitrex but is now out of all of her Imitrex. She has not taken any for the last week. Her headache is sharp and achy in nature mainly in the right frontal aspect of her head and then a mild amount of tightness on the right lateral posterior aspect. Headache is made worse with light and loud noise. It is improved with her migraine medications, and rest. However this episode has been quite more persistent than normal. She came to the ED last night and was seen and assessed by my colleague. She had an appropriately thorough workup which included negative CT imaging of her head, she was given IV fluids Compazine Benadryl Toradol 6 mg of sumatriptan subcu. She had complete resolution of her headache at that time, and then this morning she woke up and it was persistent again. She denies any fever or chills at this time. She was afebrile yesterday and is also afebrile today. She has had a lumbar puncture before and would like to avoid this. She has no other complaints at this time. The patient denies any headache red flags of worst headache of life, thunderclap headache, neck pain, fever, chills, concerning family history of polycystic kidney disease, Marfan syndrome, Gayatri-Danlos syndrome, abdominal aortic aneurysm, aortic dissection, or intracranial aneurysm. Physical exam demonstrates well-appearing female, slightly nauseous. No nuchal rigidity or neck stiffness whatsoever. No neurologic deficit. CT scan was negative for acute process, large bleed or mass, or other abnormality. Symptoms appear clinically inconsistent with meningitis at this time. With her long history of headaches, and the absence of other red flag symptoms do not appear consistent with acute intracranial bleed at this time she has no meningeal mass or rigidity. She is able to ambulate well. Patient did not receive steroids on her last visit, and this may be a component for the rebound headache that is present today. We we will give Compazine, Benadryl, Toradol, Ofirmev, 500 cc bolus of IV fluids, 100 mg of oral Imitrex which is her normal abortive dose, will monitor closely and reassess. I do not see an indication for MRI at this time based on current clinical assessment. Additionally there does not appear to be an indication for lumbar puncture at this time with no evidence to suggest bleed or meningitis. Additionally patient has declined LP at this time. 1:40 PM On reassessment patient is feeling much better. Headache has resolved and she is requesting to go home. I did measure the patient's intraocular pressures, her right eye is 26 on average, and the left eye is 28-29 on average. I reviewed my previous notes from 01/12/2024 and at that time her intraocular pressures were lower in the high teens to low 20s. She notably does not have worsening pain in a dark room, she has no conjunctival injection, vision appears intact. Symptoms appear consistent with open angle mild glaucoma. Intraocular pressure is definitely below 40 in both eyes. I do feel that the patient would benefit from close outpatient follow-up and repeat measuring by optometry or ophthalmology. We have placed a referral which should be eye care. Patient otherwise stable with the resolution of her symptoms. Discussed red flags for which to return. I have extensively reviewed the treatment plan and discharge instructions with the patient. I have addressed all patient concerns at this time. The patient was made aware of what symptoms to monitor for that would warrant a return to the emergency department. Discussed the plan with the patient, they demonstrate verbal understanding and agreement with our assessment and plan at this time. The documentation in this chart was dictated using twidox dictation software. Please excuse any dictation errors. PFSH All Active Problems (Updated 05/25/25 @ 23:37 by John Mayorga DO) Increased intraocular pressure (Acute) Headache (Acute) Migraine headache (Chronic) Dyspareunia in female (Acute 07/09/17) Diabetic foot ulcer (Acute) Orthopnea (Acute) Edema of both lower legs (Acute) l>r .. chf? INACTIVITY? Fatty infiltration of liver (Acute) Hx cirrhosis? 2' pancreatitis (05/2024)? Obstructive sleep apnea of adult (Acute) [facility] 12/23/23 Diabetic cataract of right eye (Acute) Ulcer of right foot limited to breakdown of skin (Acute 04/16/23) [facility] Podiatry Ulcer of left foot, limited to breakdown of skin (Acute 04/16/23) [facility] Podiatry Iron deficiency (Acute) 03/2023 iron studies indicating deficiency (NOT anemic) Chronic constipation (Chronic) [facility] GI Obesity (Chronic) Diabetic neuropathy (Acute) Tobacco use disorder (Chronic) Started smoking age 9 Polypharmacy (Chronic 12/14/15) Mild nonproliferative diabetic retinopathy associated with type 2 diabetes mellitus (Chronic 01/22/16) Depressive disorder (Chronic 10/31/14) ADMISSION SUICIDAL THOUGHTS 06/13/14 OD ATTEMPTS IN PAST Chronic nausea (Chronic) EGD 04/16/16 Dr. 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) Medical History Asthma Cirrhosis of liver [facility] GI Mental health disorder Pt reports being diagnosed with bipolar disorder, disassociative disorder, anxiety, & multiple personality disorder Gastroparesis (06/28/16) 03/17/[address] 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 GI Premature surgical menopause JAD/BSO in late 20s, no HRT Hepatitis C 02/14/2016 labwork: undetectable RNA level Surgical History S/P cholecystectomy (06/12/24) Dr Reyes Status post total hysterectomy and bilateral salpingo-oophorectomy (~2006) noncancerous reasons Status post left foot surgery (10/2022) Left fourth metatarsal head excision for chronic ulcer, osteomyelitis ([facility]/Tamia Vidales, DPM) Status post section (~2003) EGD (04/16/16) Dr. Ferrer Family History Mother , 46yo due to kidney & liver failure due to alcohol Substance use disorder Alcohol use disorder Father , 62yo from ALS Substance use disorder Alcohol use disorder ALS (amyotrophic lateral sclerosis) Grandmother Colon cancer Paternal Paternal Uncle Cardiac arrest Substance use disorder Alcohol and Pain Medication Abuse Social History Smoking/Tobacco Use Status: Current every day Tobacco Type: cigarettes Smoking packs per day: 1 Smoking cigarettes per day: 20.0 Years smoked: 34 Smoking pack-years: 34.00 Tobacco: How many years used: 33 Quit status: considering quitting Smoking risk assessment performed?: Yes Alcohol Intake: never Drug use: Occasionally Substance use type: former substance user and marijuana Details: Pt. 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 Pets and animals: Yes (1 dog, 4 cats) Pets and animals: cat(s) and dog(s) Sexually active: Yes Do you think of yourself as: straight/heterosexual Current gender identity: female Other: 09/2022: pt reports she is engaged What is your relationship status?: How often do you talk on the phone with friends or family?: three or more times per week How often do you get together with friends or relatives?: once per week How often do you attend scientology or orthodox services?: decline to answer Do you belong to any clubs or organized social groups?: no Panel score (0-1 are the most socially isolated patients): 2 What type of physical activity do you participate in: none Duration: decline to answer Frequency: decline to answer Seatbelt use: always Helmet use: No (No reason to wear one) 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
[2025-05-25 23:49] VITALS: BP 142/66; PULSE 72; RESP 18; TEMP 36.6; O2SAT 99
== END 2025-05-25 23:50 | disposition home or self-care (01) ==
PROVIDERS: Emergency Provider Student in an Organized Health Care Education/Training Program; PCP Internal Medicine
DX: G43.909 Migraine, unspecified, not intractable, without status migrainosus (principal)
CPT/HCPCS: 96361; 96374; 96375; 99284; J0780; J1200; J1885; J2405; J2919

== ENCOUNTER 2025-06-16 00:16 | Emergency (ER) | payer OTHER, SELFPAY ==
[2025-06-16 00:21] VITALS: BP 165/79; PULSE 74; RESP 16; TEMP 37.1; O2SAT 96
[2025-06-16] MEDS: Ketorolac 15 MG/ML VIAL IM (01:17)
[2025-06-16] MEDS: Acetaminophen 325 MG TAB 650 MG PO (01:17)
--- NOTE | 2025-06-16 01:18 | W.ED.GENAD ---
Discharge Plan Disposition Patient Disposition: Home Condition: Good Discharge Details Clinical Impression: Fall Primary Care Provider: Kevin Lehman ED Provider: Georgina Aguilra Home Meds and New Rx's Prescriptions: Continued metoclopramide HCl 10 mg tablet 10 mg PO .tid ac Rx Instructions: administer 30 minutes before meals ondansetron 8 mg tablet,disintegrating 8 mg PO BID PRN (Reason: nausea and vomiting) Qty: 60 11RF ipratropium-albuterol 0.5 mg-3 mg(2.5 mg base)/3 mL solution for nebulization 3 ml inhalation QID PRN (Reason: wheezing) Qty: 180 1RF Rx Instructions: During asthma exacerbation, may use preventatively TID, titrating down to QID PRN as wheeze & SOB improve. atorvastatin 80 mg tablet 80 mg PO DAILY Qty: 90 3RF (DME) Dexcom G6 Sensor Device See Rx Instructions .ROUTE .COMPLEX Qty: 3 6RF Dose Instruction: USE DIRECTED Rx Instructions: USE DIRECTED methadone [Methadone Intensol] 10 mg/mL concentrate 77 mg PO DAILY naloxone [Narcan] 4 mg/actuation spray,non-aerosol 4 mg intranasal Q2M PRN (Reason: opioid overdose) Qty: 2 0RF Rx Instructions: spray 1 dose into ONE nostril; alternate nostrils w each dose until help arrives (DME) Dexcom G6 Transmitter Device See Rx Instructions .Route Qty: 3 3RF Rx Instructions: As directed pregabalin 200 mg capsule 200 mg PO TID Qty: 90 3RF Patient Comments: -- Pt states she is taking both pregabalin and gabapentin (DME) foam pillow triangular See Rx Instructions .Route .MEDSUPPLY Qty: 1 0RF Rx Instructions: Trial sleeping & resting (legs need elevation) @ 30-40' angle to alleviate SOB/Panic (DME) pen needle, diabetic [BD Ultra-Fine Yamini Pen Needle] 32 gauge x 5/32 needle See Rx Instructions .ROUTE .COMPLEX Qty: 100 0RF Dose Instruction: USE TO ADMINISTER INSULIN ONCE DAILY Rx Instructions: USE TO ADMINISTER INSULIN ONCE DAILY (DME) blood-glucose meter Misc See Rx Instructions .Route Qty: 1 0RF Rx Instructions: One Touch meter (DME) lancets Misc See Rx Instructions .ROUTE .MEDSUPPLY Qty: 400 3RF Rx Instructions: As directed to check blood glucose four times daily. On insulin. Dispense one touch ultra (DME) Blood Glucose Test Strip See Rx Instructions .MEDSUPPLY Qty: 400 3RF Rx Instructions: As directed to check blood glucose four times daily. On insulin. Dispense one touch ultra magnesium oxide 400 mg (241.3 mg magnesium) tablet 400 mg PO BID Qty: 180 0RF nystatin 100,000 unit/gram powder 1 applic Topical BID PRN (Reason: fungal skin infection) Qty: 30 3RF Rx Instructions: Apply powder to affected area under R breast twice daily polyethylene glycol 3350 [Miralax] 17 gram/dose powder 17 g PO DAILY PRN (Reason: constipation/gastroparesis) Qty: 238 0RF Ajovy Autoinjector 225 mg/1.5 mL auto-injector 225 mg subcut QMONTH Patient Comments: Pt has missed the last 2 months Botox 100 unit recon soln 300 unit IM ONCE Patient Comments: -- Pt's last dose was 3 months ago, next dose due anytime Rx Instructions: divided among affected muscles clonidine HCl 0.1 mg tablet 0.1 mg PO TID sumatriptan succinate 100 mg tablet 100 mg PO QDAY MDD 200mg PRN (Reason: migraine headache) Qty: 10 0RF Rx Instructions: Please take 1 daily as needed for headache may repeat in 2 hours Do not take more than 2 tablets in a 24-hour. lurasidone 80 mg tablet 40 mg PO DAILY Patient Comments: TAKE ONE TABLET BY MOUTH EVERY DAY WITH AT LEAST 350 CALORIES furosemide 20 mg tablet 20 mg PO QAM metoprolol succinate 100 mg tablet extended release 24 hr 100 mg PO DAILY acyclovir 800 mg tablet 800 mg PO DAILY hydroxyzine pamoate 50 mg capsule 50 mg PO BID Patient Comments: TAKE ONE CAPSULE BY MOUTH TWICE A DAY dextroamphetamine-amphetamine 30 mg tablet 30 mg PO BID Patient Comments: TAKE ONE TABLET BY MOUTH TWICE A DAY @ 5am, 11am olmesartan 20 mg tablet 20 mg PO DAILY valacyclovir 1 gram tablet 1,000 mg PO DAILY PRN (Reason: for flares) Patient Comments: TAKE ONE TABLET BY MOUTH EVERY DAY prn flares methocarbamol 500 mg tablet 500 mg PO HS PRN (Reason: muscle spasm) Rx Instructions: Use lowest effective dose for shortest duration for muscle spasm omeprazole 40 mg capsule,delayed release(DR/EC) 40 mg PO BID acetaminophen 500 mg tablet 1,000 mg PO Q6H MDD 3000 mg PRN (Reason: fever or pain) Rx Instructions: 1 month supply gabapentin 300 mg capsule 300 mg PO HS Patient Comments: -- Pt states she is taking both pregabalin and gabapentin albuterol sulfate 90 mcg/actuation HFA aerosol inhaler 2 puff Inhalation Q4H PRN (Reason: shortness of breath or wheezing) Rx Instructions: DISPENSE ALBUTEROL INHALER BRAND COVERED BY INSURANCE insulin aspart U-100 [Novolog FlexPen U-100 Insulin] 100 unit/mL (3 mL) insulin pen 10 - 15 unit subcut AC Rx Instructions: -- Pt uses 10-15 units sliding scale before meals Gvoke HypoPen 2-Pack 1 mg/0.2 mL auto-injector 1 mg subcut ONCE PRN (Reason: per hypoglycemic protocol) Rx Instructions: HYPOGLYCEMIA; as a single dose; may repeat once after 15 minutes if no response Natural Tears (PF) 0.1-0.3 % dropperette 1 drp ophthalmic (eye) QID PRN lorazepam 1 mg tablet Patient Comments: TAKE ONE TABLET BY MOUTH EVERY DAY NEEDED FOR ANXIETY tobramycin-dexamethasone 0.3-0.1 % drops,suspension Patient Comments: INSTILL 1 DROP INTO BOTH EYES THREE TIMES A DAY cyclosporine [Restasis] 0.05 % dropperette Patient Comments: INSTILL 1 DROP INTO BOTH EYES TWICE DAILY DIRECTED Discontinued lorazepam 0.5 mg tablet 0.5 mg PO DAILY PRN (Reason: dyspnea) Rx Instructions: Short term increase to BID PRN panic or shortness of breath orally daily PRN; (FYI to Prescriber @ [facility]) Discharge Instructions Instructions: Acute Pain, Adult Additional Instructions: Tylenol and ibuprofen over the counter for pain; follow the directions on the bottle. Use ice on the areas on that are sore. If you are still feeling significant pain over the next few days, call your primary care doctor to schedule an appointment to followup on your visit here. Return to the emergency department for new or worsening symptoms including if you have new/different/worse pain, numbness/weakness, or if you are unable to walk. HPI General Mode of arrival: ambulatory. Date/Time Provider Initiated Documentation: 06/16/25 00:25. Limitations to Documentation: no limitations. Information obtained by: patient. HPI Narrative: 44yo F with hx DM presenting after a fall. Around 1930 tripped over a curb/cement block (that stops vehicle from rolling forward) and fell forward landing on bilateral forearms and knees. Did not fall on outstretched hand. No head strike or loss of consciousness. Has has pain all over since then, unrelieved by home tylenol and ipuprofen. States knees and elbows seem to hurt the worst. No headache, neck pain, numbness, tingling, weakness. Was in her usual state of health prior to this event. Related Data Home Medications ?Medication ?Instructions ?Recorded ?Confirmed pen needle, diabetic 32 gauge x #100 ea 06/30/23 05/25/25 (BD Ultra-Fine Yamini Pen Needle) blood-glucose meter #1 ea 08/28/23 05/25/25 lancets #400 ea 08/28/23 05/25/25 naloxone 4 mg/actuation nasal 4 mg intranasal Q2M PRN opioid 02/13/24 06/16/25 spray (Narcan) overdose #2 ea blood sugar diagnostic (Blood #400 ea 04/26/24 05/25/25 Glucose Test strips) magnesium oxide 400 mg (241.3 mg 400 mg PO BID #180 tabs 04/26/24 06/16/25 magnesium) tablet nystatin 100,000 unit/gram topical 1 applic topical BID PRN fungal 05/25/24 06/16/25 powder skin infection #30 grams ipratropium 0.5 mg-albuterol 3 mg 3 ml inhalation QID PRN wheezing 05/31/24 06/16/25 (2.5 mg base)/3 mL nebulization #180 mL soln metoclopramide HCl 10 mg tablet 10 mg PO .tid ac 05/31/24 06/16/25 ondansetron 8 mg disintegrating 8 mg PO BID PRN nausea and 05/31/24 06/16/25 tablet vomiting #60 tabs fremanezumab-vfrm 225 mg/1.5 mL 225 mg subcut QMONTH 06/07/24 06/16/25 subcutaneous auto-injector (Ajovy) onabotulinumtoxinA 100 unit 300 unit IM ONCE 06/07/24 06/16/25 solution for injection (Botox) lurasidone 80 mg tablet 40 mg PO DAILY 06/08/24 06/16/25 atorvastatin 80 mg tablet 80 mg PO DAILY #90 tabs 06/23/24 06/16/25 blood-glucose sensor (Dexcom G6 #3 ea 06/23/24 05/25/25 Sensor device) methadone 10 mg/mL oral 77 mg PO DAILY 06/23/24 06/16/25 concentrate (Methadone Intensol) blood-glucose transmitter (Dexcom #3 ea 07/07/24 05/25/25 G6 Transmitter device) foam pillow #1 ea 07/07/24 05/25/25 pregabalin 200 mg capsule 200 mg PO TID #90 caps 07/07/24 06/16/25 polyethylene glycol 3350 17 17 g PO DAILY PRN 08/02/24 06/16/25 gram/dose oral powder (Miralax) constipation/gastroparesis #238 grams clonidine HCl 0.1 mg tablet 0.1 mg PO TID 09/19/24 06/16/25 acetaminophen 500 mg tablet 1,000 mg PO Q6H PRN fever or pain 01/16/25 06/16/25 acyclovir 800 mg tablet 800 mg PO DAILY 01/16/25 06/16/25 albuterol sulfate 90 mcg/actuation 2 puff inhalation Q4H PRN 01/16/25 06/16/25 aerosol inhaler shortness of breath or wheezing dextran 70-hypromellose (PF) 0.1 1 drp ophthalmic (eye) QID PRN 01/16/25 06/16/25 %-0.3 % eye drops in a dropperette (Natural Tears (PF)) dextroamphetamine-amphetamine 30 30 mg PO BID 01/16/25 06/16/25 mg tablet furosemide 20 mg tablet 20 mg PO QAM 01/16/25 06/16/25 gabapentin 300 mg capsule 300 mg PO HS back pain 01/16/25 06/16/25 glucagon 1 mg/0.2 mL subcutaneous 1 mg subcut ONCE PRN per 01/16/25 06/16/25 auto-injector (Gvoke HypoPen hypoglycemic protocol 2-Pack) hydroxyzine pamoate 50 mg capsule 50 mg PO BID 01/16/25 06/16/25 insulin aspart U-100 100 unit/mL 10 - 15 unit subcut AC 01/16/25 06/16/25 (3 mL) subcutaneous pen (Novolog FlexPen U-100 Insulin aspart) methocarbamol 500 mg tablet 500 mg PO HS PRN muscle spasm 01/16/25 06/16/25 metoprolol succinate 100 mg 100 mg PO DAILY 01/16/25 06/16/25 tablet,extended release 24 hr olmesartan 20 mg tablet 20 mg PO DAILY 01/16/25 06/16/25 omeprazole 40 mg capsule,delayed 40 mg PO BID 01/16/25 06/16/25 release valacyclovir 1 gram tablet 1,000 mg PO DAILY PRN for flares 01/16/25 06/16/25 sumatriptan succinate 100 mg tablet 100 mg PO QDAY PRN migraine 05/24/25 06/16/25 headache #10 tabs cyclosporine 0.05 % eye drops in a drp 06/16/25 dropperette (Restasis) lorazepam 1 mg tablet mg 06/16/25 tobramycin 0.3 %-dexamethasone 0.1 drp 06/16/25 % eye drops,suspension Previous Rx's ?Medication ?Instructions ?Recorded pen needle, diabetic 32 gauge x #100 ea 06/30/23 (BD Ultra-Fine Yamini Pen Needle) blood-glucose meter #1 ea 08/28/23 lancets #400 ea 08/28/23 naloxone 4 mg/actuation nasal 4 mg intranasal Q2M PRN opioid 02/13/24 spray (Narcan) overdose #2 ea blood sugar diagnostic (Blood #400 ea 04/26/24 Glucose Test strips) magnesium oxide 400 mg (241.3 mg 400 mg PO BID #180 tabs 04/26/24 magnesium) tablet nystatin 100,000 unit/gram topical 1 applic topical BID PRN fungal 05/25/24 powder skin infection #30 grams ipratropium 0.5 mg-albuterol 3 mg 3 ml inhalation QID PRN wheezing 05/31/24 (2.5 mg base)/3 mL nebulization #180 mL soln ondansetron 8 mg disintegrating 8 mg PO BID PRN nausea and 05/31/24 tablet vomiting #60 tabs atorvastatin 80 mg tablet 80 mg PO DAILY #90 tabs 06/23/24 blood-glucose sensor (Dexcom G6 #3 ea 06/23/24 Sensor device) blood-glucose transmitter (Dexcom #3 ea 07/07/24 G6 Transmitter device) foam pillow #1 ea 07/07/24 pregabalin 200 mg capsule 200 mg PO TID #90 caps 07/07/24 polyethylene glycol 3350 17 17 g PO DAILY PRN 08/02/24 gram/dose oral powder (Miralax) constipation/gastroparesis #238 grams sumatriptan succinate 100 mg tablet 100 mg PO QDAY PRN migraine 05/24/25 headache #10 tabs Allergies Allergy/AdvReac Type Severity Reaction Status Date / Time Penicillins Allergy Severe lip and Verified 06/16/25 00:32 facial swelling lamotrigine (From Lamictal) Allergy Unknown Skin Rash Verified 06/16/25 00:32 clindamycin AdvReac Severe Nausea & Verified 06/16/25 00:32 vomiting aspirin AdvReac Intermediate nausea/pain Verified 06/16/25 00:32 General Stated Complaint: Fall/Non TraumaCriteria CARLOS: 3 Review of Systems Narrative: see HPI Exam Narrative Exam Narrative: GENERAL: Alert, no acute distress. SKIN: Warm and well perfused. Abrasion left knee, hemostatic. HEAD: Atraumatic, normocephalic without edema, discoloration or evidence of trauma. Facial bones without deformities or tenderness. EYES: PERRL. No scleral icterus or conjunctival injection. Extraocular muscles intact without nystagmus or diplopia. EARS: No hemotympanum. NOSE: No discharge, tenderness, laxity. MOUTH: No malocclusion or trismus. Moist mucus membranes without blood. NECK: Trachea midline. No discolorations or edema. CV: Regular rate and rhythm, Normal s1 and s2. No murmurs, rubs, or gallops. PV: Radial pulses 2+ bilaterally and symmetric. Dorsalis pedis pulses 2+ bilaterally and symmetric. 2+ capillary refill. No extremity edema. CHEST: No abrasions or ecchymosis. Chest symmetric with respirations. Mild right lateral chest wall tenderness to palpation. No crepitus. No step offs. Lungs are clear to auscultation bilaterally. ABDOMEN: No ecchymosis or abrasions. Soft, nondistended, nontender. BACK: No abrasions, skin openings, or ecchymosis. Spine without bony tenderness, no step offs. PELVIC: Pelvis stable, nontender to lateral compression and palpation of symphysis pubis. MSK: No gross deformities. Tolerates full range of motion of extremities without tenderness. Some bony tenderness at right elbow and right knee, no effusions or swelling. No scaphoid or tenderness. NEURO: Alert and oriented to person, place, and time. GCS 15. Sensation grossly intact. Strength 5/5 in bilateral UE and LE. Finger to nose intact bilaterally. Course Vital Signs Vital signs: Vital Signs Temperature 37.1 C 06/16/25 00:21 Pulse 74 06/16/25 00:21 Respiratory Rate 16 06/16/25 00:21 Blood Pressure 165/79 H 06/16/25 00:21 Pulse Oximetry 96 06/16/25 00:21 Temperature 37.1 C 06/16/25 00:21 Temperature Source Oral 06/16/25 00:21 Pulse 74 06/16/25 00:21 Respiratory Rate 16 06/16/25 00:21 Blood Pressure 165/79 H 06/16/25 00:21 Blood Pressure Position Sitting 06/16/25 00:21 Pulse Oximetry 96 06/16/25 00:21 Oxygen Delivery Method Room Air 06/16/25 00:21 Oxygen Flow Rate 0 06/16/25 00:21 Pain Level 9 06/16/25 00:21 Medical Decision Making 44yo F with hx DM presenting after a fall. Around 0 tripped over a curb/cement block and fell forward landing on bilateral forearms and knees. No FOOSH, no HS or LOC. Hypertensive on arrival, vital signs otherwise reassuring. Trauma exam overall reassuring, significant for some mild right lateral chest wall tenderness and bony tenderness to right elbow and knee. Neurovascular intact. No indication for CT imaging. Will give tylenol and toradol here for pain. Low suspicion for acute fracture; shared decision making with patient and she elected to pursue plain films which were ordered. Subsequently patient stated that she had changed her mind, would like to go home after receiving pain medication which with her reassuring exam is not unreasonable. Discharged home; discharge instructions and return precuations were reviewed with patient who verbalized understanding. She was advised to followup with her PCP regarding her blood pressure. All questions were answered and she is in full agreement with the plan. PFSH All Active Problems (Updated 06/16/25 @ 01:21 by Georgina Aguilar MD) Fall (Acute) Increased intraocular pressure (Acute) Headache (Acute) Dyspareunia in female (Acute 07/09/17) Diabetic foot ulcer (Acute) Orthopnea (Acute) Edema of both lower legs (Acute) l>r .. chf? INACTIVITY? Fatty infiltration of liver (Acute) Hx cirrhosis? 2' pancreatitis (05/2024)? Obstructive sleep apnea of adult (Acute) [facility] 12/23/23 Diabetic cataract of right eye (Acute) Ulcer of right foot limited to breakdown of skin (Acute 04/16/23) [facility] Podiatry Ulcer of left foot, limited to breakdown of skin (Acute 04/16/23) [facility] Podiatry Iron deficiency (Acute) 03/2023 iron studies indicating deficiency (NOT anemic) Chronic constipation (Chronic) [facility] GI Obesity (Chronic) Diabetic neuropathy (Acute) Tobacco use disorder (Chronic) Started smoking age 9 Polypharmacy (Chronic 12/14/15) Mild nonproliferative diabetic retinopathy associated with type 2 diabetes mellitus (Chronic 01/22/16) Depressive disorder (Chronic 10/31/14) ADMISSION SUICIDAL THOUGHTS 06/13/14 OD ATTEMPTS IN PAST Chronic nausea (Chronic) EGD 04/16/16 Dr. 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) Medical History Asthma Cirrhosis of liver [facility] GI Mental health disorder Pt reports being diagnosed with bipolar disorder, disassociative disorder, anxiety, & multiple personality disorder Gastroparesis (06/28/16) 03/17/[address] 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 GI Premature surgical menopause JAD/BSO in late 20s, no HRT Hepatitis C 02/14/2016 labwork: undetectable RNA level Surgical History S/P cholecystectomy (06/12/24) Dr Reyes Status post total hysterectomy and bilateral salpingo-oophorectomy (~2006) noncancerous reasons Status post left foot surgery (10/2022) Left fourth metatarsal head excision for chronic ulcer, osteomyelitis ([facility]/Tamia Vidales, DPM) Status post section (~2003) EGD (04/16/16) Dr. Ferrer Family History Mother , 46yo due to kidney & liver failure due to alcohol Substance use disorder Alcohol use disorder Father , 62yo from ALS Substance use disorder Alcohol use disorder ALS (amyotrophic lateral sclerosis) Grandmother Colon cancer Paternal Paternal Uncle Cardiac arrest Substance use disorder Alcohol and Pain Medication Abuse Social History Smoking/Tobacco Use Status: Current every day Tobacco Type: cigarettes Smoking packs per day: 1 Smoking cigarettes per day: 20.0 Years smoked: 34 Smoking pack-years: 34.00 Tobacco: How many years used: 33 Quit status: considering quitting Smoking risk assessment performed?: Yes Alcohol Intake: never Drug use: Occasionally Substance use type: former substance user and marijuana Details: Pt. 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 Pets and animals: Yes (1 dog, 4 cats) Pets and animals: cat(s) and dog(s) Sexually active: Yes Do you think of yourself as: straight/heterosexual Current gender identity: female Other: 09/2022: pt reports she is engaged What is your relationship status?: How often do you talk on the phone with friends or family?: three or more times per week How often do you get together with friends or relatives?: once per week How often do you attend mandaeism or taoist services?: decline to answer Do you belong to any clubs or organized social groups?: no Panel score (0-1 are the most socially isolated patients): 2 What type of physical activity do you participate in: none Duration: decline to answer Frequency: decline to answer Seatbelt use: always Helmet use: No (No reason to wear one) Drive intox or ride w/intox driver license technician: No Do you feel safe at home: Yes Do you feel safe in your relationship?: Yes
== END 2025-06-16 01:32 | disposition home or self-care (01) ==
PROVIDERS: Emergency Provider Student in an Organized Health Care Education/Training Program; PCP Internal Medicine
DX: M25.561 Pain in right knee (principal); M25.562 Pain in left knee; M25.521 Pain in right elbow; M25.522 Pain in left elbow; W01.0XXA Fall on same level from slipping, tripping and stumbling without subsequent striking against object, initial encounter
CPT/HCPCS: 99283; 99284; 96372; J1885

== ENCOUNTER 2025-06-26 19:55 | Emergency (ER) | payer OTHER, SELFPAY ==
[2025-06-26 19:56] VITALS: BP 147/87; PULSE 87; RESP 14; TEMP 36.5; O2SAT 91
--- NOTE | 2025-06-26 20:04 | W.ED.GENAD ---
Discharge Plan Disposition Patient Disposition: Home Discharge Details Clinical Impression: Pain in joint of right elbow, Acute pain of right wrist Primary Care Provider: Kevin Lehman ED Provider: Lin Covarrubias Home Meds and New Rx's Prescriptions: No Action metoclopramide HCl 10 mg tablet 10 mg PO .tid ac Rx Instructions: administer 30 minutes before meals ondansetron 8 mg tablet,disintegrating 8 mg PO BID PRN (Reason: nausea and vomiting) Qty: 60 11RF ipratropium-albuterol 0.5 mg-3 mg(2.5 mg base)/3 mL solution for nebulization 3 ml inhalation QID PRN (Reason: wheezing) Qty: 180 1RF Rx Instructions: During asthma exacerbation, may use preventatively TID, titrating down to QID PRN as wheeze & SOB improve. atorvastatin 80 mg tablet 80 mg PO DAILY Qty: 90 3RF (DME) Dexcom G6 Sensor Device See Rx Instructions .ROUTE .COMPLEX Qty: 3 6RF Dose Instruction: USE DIRECTED Rx Instructions: USE DIRECTED methadone [Methadone Intensol] 10 mg/mL concentrate 77 mg PO DAILY naloxone [Narcan] 4 mg/actuation spray,non-aerosol 4 mg intranasal Q2M PRN (Reason: opioid overdose) Qty: 2 0RF Rx Instructions: spray 1 dose into ONE nostril; alternate nostrils w each dose until help arrives (DME) Dexcom G6 Transmitter Device See Rx Instructions .Route Qty: 3 3RF Rx Instructions: As directed pregabalin 200 mg capsule 200 mg PO TID Qty: 90 3RF Patient Comments: -- Pt states she is taking both pregabalin and gabapentin (DME) foam pillow triangular See Rx Instructions .Route .MEDSUPPLY Qty: 1 0RF Rx Instructions: Trial sleeping & resting (legs need elevation) @ 30-40' angle to alleviate SOB/Panic (DME) pen needle, diabetic [BD Ultra-Fine Yamini Pen Needle] 32 gauge x 5/32 needle See Rx Instructions .ROUTE .COMPLEX Qty: 100 0RF Dose Instruction: USE TO ADMINISTER INSULIN ONCE DAILY Rx Instructions: USE TO ADMINISTER INSULIN ONCE DAILY (DME) blood-glucose meter Misc See Rx Instructions .Route Qty: 1 0RF Rx Instructions: One Touch meter (DME) lancets Misc See Rx Instructions .ROUTE .MEDSUPPLY Qty: 400 3RF Rx Instructions: As directed to check blood glucose four times daily. On insulin. Dispense one touch ultra (DME) Blood Glucose Test Strip See Rx Instructions .MEDSUPPLY Qty: 400 3RF Rx Instructions: As directed to check blood glucose four times daily. On insulin. Dispense one touch ultra magnesium oxide 400 mg (241.3 mg magnesium) tablet 400 mg PO BID Qty: 180 0RF nystatin 100,000 unit/gram powder 1 applic Topical BID PRN (Reason: fungal skin infection) Qty: 30 3RF Rx Instructions: Apply powder to affected area under R breast twice daily polyethylene glycol 3350 [Miralax] 17 gram/dose powder 17 g PO DAILY PRN (Reason: constipation/gastroparesis) Qty: 238 0RF Ajovy Autoinjector 225 mg/1.5 mL auto-injector 225 mg subcut QMONTH Patient Comments: Pt has missed the last 2 months Botox 100 unit recon soln 300 unit IM ONCE Patient Comments: -- Pt's last dose was 3 months ago, next dose due anytime Rx Instructions: divided among affected muscles clonidine HCl 0.1 mg tablet 0.1 mg PO TID sumatriptan succinate 100 mg tablet 100 mg PO QDAY MDD 200mg PRN (Reason: migraine headache) Qty: 10 0RF Rx Instructions: Please take 1 daily as needed for headache may repeat in 2 hours Do not take more than 2 tablets in a 24-hour. lurasidone 80 mg tablet 40 mg PO DAILY Patient Comments: TAKE ONE TABLET BY MOUTH EVERY DAY WITH AT LEAST 350 CALORIES furosemide 20 mg tablet 20 mg PO QAM metoprolol succinate 100 mg tablet extended release 24 hr 100 mg PO DAILY acyclovir 800 mg tablet 800 mg PO DAILY hydroxyzine pamoate 50 mg capsule 50 mg PO BID Patient Comments: TAKE ONE CAPSULE BY MOUTH TWICE A DAY dextroamphetamine-amphetamine 30 mg tablet 30 mg PO BID Patient Comments: TAKE ONE TABLET BY MOUTH TWICE A DAY @ 5am, 11am olmesartan 20 mg tablet 20 mg PO DAILY valacyclovir 1 gram tablet 1,000 mg PO DAILY PRN (Reason: for flares) Patient Comments: TAKE ONE TABLET BY MOUTH EVERY DAY prn flares methocarbamol 500 mg tablet 500 mg PO HS PRN (Reason: muscle spasm) Rx Instructions: Use lowest effective dose for shortest duration for muscle spasm omeprazole 40 mg capsule,delayed release(DR/EC) 40 mg PO BID acetaminophen 500 mg tablet 1,000 mg PO Q6H MDD 3000 mg PRN (Reason: fever or pain) Rx Instructions: 1 month supply gabapentin 300 mg capsule 300 mg PO HS Patient Comments: -- Pt states she is taking both pregabalin and gabapentin albuterol sulfate 90 mcg/actuation HFA aerosol inhaler 2 puff Inhalation Q4H PRN (Reason: shortness of breath or wheezing) Rx Instructions: DISPENSE ALBUTEROL INHALER BRAND COVERED BY INSURANCE insulin aspart U-100 [Novolog FlexPen U-100 Insulin] 100 unit/mL (3 mL) insulin pen 10 - 15 unit subcut AC Rx Instructions: -- Pt uses 10-15 units sliding scale before meals Gvoke HypoPen 2-Pack 1 mg/0.2 mL auto-injector 1 mg subcut ONCE PRN (Reason: per hypoglycemic protocol) Rx Instructions: HYPOGLYCEMIA; as a single dose; may repeat once after 15 minutes if no response Natural Tears (PF) 0.1-0.3 % dropperette 1 drp ophthalmic (eye) QID PRN lorazepam 1 mg tablet 1 mg PO TID Patient Comments: TAKE ONE TABLET BY MOUTH EVERY DAY NEEDED FOR ANXIETY tobramycin-dexamethasone 0.3-0.1 % drops,suspension 1 drp ophthalmic (eye) BID Patient Comments: INSTILL 1 DROP INTO BOTH EYES THREE TIMES A DAY cyclosporine [Restasis] 0.05 % dropperette 1 drp ophthalmic (eye) BID Patient Comments: INSTILL 1 DROP INTO BOTH EYES TWICE DAILY DIRECTED Discharge Instructions Additional Instructions: Please call your primary care provider to schedule a follow-up appointment for reassessment in the next couple of weeks. No sign of fracture on your x-rays. I recommend that you use the Eliceo wrap and the wrist splint for discomfort as needed. You may continue to use ice for 15 to 20 minutes at a time every hour or two. Return to emergency care if develop new color change to the extremity, inability to move your hand, or if you are very worried and need to be rechecked again immediately Referrals: Kevin Lehman DO [Primary Care Provider, Medicine] HPI General Date/Time Provider Initiated Documentation: 06/26/25 20:03. HPI Narrative: Denise is a 44-year-old female presents to the emergency department today for evaluation of left wrist and elbow pain after a fall 11 days ago. She reports she bumped into a cement barrier, causing her to fall forward with her arms extended. She reports diffuse pain to right wrist and right elbow with any movement or palpation. Denies other injuries. No distal numbness/tingling. No previous injury to this arm. Ibuprofen and Tylenol have not provided significant relief. Last dose of ibuprofen taken this morning. Related Data Home Medications ?Medication ?Instructions ?Recorded ?Confirmed pen needle, diabetic 32 gauge x #100 ea 06/30/23 06/26/25 (BD Ultra-Fine Yamini Pen Needle) blood-glucose meter #1 ea 08/28/23 06/26/25 lancets #400 ea 08/28/23 06/26/25 naloxone 4 mg/actuation nasal 4 mg intranasal Q2M PRN opioid 02/13/24 06/26/25 spray (Narcan) overdose #2 ea blood sugar diagnostic (Blood #400 ea 04/26/24 06/26/25 Glucose Test strips) magnesium oxide 400 mg (241.3 mg 400 mg PO BID #180 tabs 04/26/24 06/26/25 magnesium) tablet nystatin 100,000 unit/gram topical 1 applic topical BID PRN fungal 05/25/24 06/26/25 powder skin infection #30 grams ipratropium 0.5 mg-albuterol 3 mg 3 ml inhalation QID PRN wheezing 05/31/24 06/26/25 (2.5 mg base)/3 mL nebulization #180 mL soln metoclopramide HCl 10 mg tablet 10 mg PO .tid ac 05/31/24 06/26/25 ondansetron 8 mg disintegrating 8 mg PO BID PRN nausea and 05/31/24 06/26/25 tablet vomiting #60 tabs fremanezumab-vfrm 225 mg/1.5 mL 225 mg subcut QMONTH 06/07/24 06/26/25 subcutaneous auto-injector (Ajovy) onabotulinumtoxinA 100 unit 300 unit IM ONCE 06/07/24 06/26/25 solution for injection (Botox) lurasidone 80 mg tablet 40 mg PO DAILY 06/08/24 06/26/25 atorvastatin 80 mg tablet 80 mg PO DAILY #90 tabs 06/23/24 06/26/25 blood-glucose sensor (Dexcom G6 #3 ea 06/23/24 06/26/25 Sensor device) methadone 10 mg/mL oral 77 mg PO DAILY 06/23/24 06/26/25 concentrate (Methadone Intensol) blood-glucose transmitter (Dexcom #3 ea 07/07/24 06/26/25 G6 Transmitter device) foam pillow #1 ea 07/07/24 06/26/25 pregabalin 200 mg capsule 200 mg PO TID #90 caps 07/07/24 06/26/25 polyethylene glycol 3350 17 17 g PO DAILY PRN 08/02/24 06/26/25 gram/dose oral powder (Miralax) constipation/gastroparesis #238 grams clonidine HCl 0.1 mg tablet 0.1 mg PO TID 09/19/24 06/26/25 acetaminophen 500 mg tablet 1,000 mg PO Q6H PRN fever or pain 01/16/25 06/26/25 acyclovir 800 mg tablet 800 mg PO DAILY 01/16/25 06/26/25 albuterol sulfate 90 mcg/actuation 2 puff inhalation Q4H PRN 01/16/25 06/26/25 aerosol inhaler shortness of breath or wheezing dextran 70-hypromellose (PF) 0.1 1 drp ophthalmic (eye) QID PRN 01/16/25 06/26/25 %-0.3 % eye drops in a dropperette (Natural Tears (PF)) dextroamphetamine-amphetamine 30 30 mg PO BID 01/16/25 06/26/25 mg tablet furosemide 20 mg tablet 20 mg PO QAM 01/16/25 06/26/25 gabapentin 300 mg capsule 300 mg PO HS back pain 01/16/25 06/26/25 glucagon 1 mg/0.2 mL subcutaneous 1 mg subcut ONCE PRN per 01/16/25 06/26/25 auto-injector (Gvoke HypoPen hypoglycemic protocol 2-Pack) hydroxyzine pamoate 50 mg capsule 50 mg PO BID 01/16/25 06/26/25 insulin aspart U-100 100 unit/mL 10 - 15 unit subcut AC 01/16/25 06/26/25 (3 mL) subcutaneous pen (Novolog FlexPen U-100 Insulin aspart) methocarbamol 500 mg tablet 500 mg PO HS PRN muscle spasm 01/16/25 06/26/25 metoprolol succinate 100 mg 100 mg PO DAILY 01/16/25 06/26/25 tablet,extended release 24 hr olmesartan 20 mg tablet 20 mg PO DAILY 01/16/25 06/26/25 omeprazole 40 mg capsule,delayed 40 mg PO BID 01/16/25 06/26/25 release valacyclovir 1 gram tablet 1,000 mg PO DAILY PRN for flares 01/16/25 06/26/25 sumatriptan succinate 100 mg tablet 100 mg PO QDAY PRN migraine 05/24/25 06/26/25 headache #10 tabs cyclosporine 0.05 % eye drops in a 1 drp ophthalmic (eye) BID 06/16/25 06/26/25 dropperette (Restasis) lorazepam 1 mg tablet 1 mg PO TID 06/16/25 06/26/25 tobramycin 0.3 %-dexamethasone 0.1 1 drp ophthalmic (eye) BID 06/16/25 06/26/25 % eye drops,suspension Previous Rx's ?Medication ?Instructions ?Recorded pen needle, diabetic 32 gauge x #100 ea 06/30/23 (BD Ultra-Fine Yamini Pen Needle) blood-glucose meter #1 ea 08/28/23 lancets #400 ea 08/28/23 naloxone 4 mg/actuation nasal 4 mg intranasal Q2M PRN opioid 02/13/24 spray (Narcan) overdose #2 ea blood sugar diagnostic (Blood #400 ea 04/26/24 Glucose Test strips) magnesium oxide 400 mg (241.3 mg 400 mg PO BID #180 tabs 04/26/24 magnesium) tablet nystatin 100,000 unit/gram topical 1 applic topical BID PRN fungal 05/25/24 powder skin infection #30 grams ipratropium 0.5 mg-albuterol 3 mg 3 ml inhalation QID PRN wheezing 05/31/24 (2.5 mg base)/3 mL nebulization #180 mL soln ondansetron 8 mg disintegrating 8 mg PO BID PRN nausea and 05/31/24 tablet vomiting #60 tabs atorvastatin 80 mg tablet 80 mg PO DAILY #90 tabs 06/23/24 blood-glucose sensor (Dexcom G6 #3 ea 06/23/24 Sensor device) blood-glucose transmitter (Dexcom #3 ea 07/07/24 G6 Transmitter device) foam pillow #1 ea 07/07/24 pregabalin 200 mg capsule 200 mg PO TID #90 caps 07/07/24 polyethylene glycol 3350 17 17 g PO DAILY PRN 08/02/24 gram/dose oral powder (Miralax) constipation/gastroparesis #238 grams sumatriptan succinate 100 mg tablet 100 mg PO QDAY PRN migraine 05/24/25 headache #10 tabs Allergies Allergy/AdvReac Type Severity Reaction Status Date / Time Penicillins Allergy Severe lip and Verified 06/26/25 20:01 facial swelling lamotrigine (From Lamictal) Allergy Unknown Skin Rash Verified 06/26/25 20:01 clindamycin AdvReac Severe Nausea & Verified 06/26/25 20:01 vomiting aspirin AdvReac Intermediate nausea/pain Verified 06/26/25 20:01 General Stated Complaint: Orthopedic CARLOS: 4 Exam Narrative Exam Narrative: General Appearance: Normal. Alert and oriented, no acute distress Vital signs: Within normal limits. Back, Musculoskeletal: Diffuse tenderness at right elbow and wrist, no point tenderness. Pain upon palpation. Able to fully range wrist and elbow. No snuffbox tenderness. Neurologic: +CMS to fingers. Skin: Warm and dry, no rash. Psychiatric: Normal. Course Vital Signs Vital signs: Vital Signs Temperature 36.5 C 06/26/25 19:56 Pulse 87 06/26/25 19:56 Respiratory Rate 14 06/26/25 19:56 Blood Pressure 147/87 H 06/26/25 19:56 Pulse Oximetry 91 L 06/26/25 19:56 Temperature 36.5 C 06/26/25 19:56 Temperature Source Oral 06/26/25 19:56 Pulse 87 06/26/25 19:56 Respiratory Rate 14 06/26/25 19:56 Blood Pressure 147/87 H 06/26/25 19:56 Blood Pressure Position Sitting 06/26/25 19:56 Pulse Oximetry 91 L 06/26/25 19:56 Oxygen Delivery Method Room Air 06/26/25 19:56 Oxygen Flow Rate 0 06/26/25 19:56 Pain Level 9 06/26/25 19:56 Medical Decision Making 44-year-old female with arm pain after fall 11 days ago. Excruciating pain in elbow and wrist. Ibuprofen and Tylenol not providing relief. Differential Diagnosis includes but is not limited to: Sprain, contusion, fracture. No red flags concerning for neurovascular compromise or infectious process ED Course: - X-ray ordered - Ice applied - Toradol injection administered per patient request No acute abnormalities noted on wrist or elbow x-ray per radiologist Final Assessment: Right wrist sprain, right elbow pain/contusion Provided wrist splint and Eliceo wrap to patient for comfort, as well as ice. Discharge instructions provided, including symptomatic management, importance of follow-up with PCP, and red flags indicating need for return to emergency care Patient Education: Apply ice. Use Eliceo bandage for elbow. Use splint for wrist if no fracture. Take ibuprofen tonight. Patient consented to the use of JEREMIAH Imaging Data Radiologic Study: Radiologist's impression: PROCEDURE INFORMATION: Exam: XR Right Wrist Exam date and time: 06/26/2025 8:43 PM Age: 44 years old Clinical indication: Right wrist pain TECHNIQUE: Imaging protocol: Radiologic exam of the right wrist. Views: 3 or more views. COMPARISON: CR XR ELBOW RT COMPLETE 06/26/2025 8:40 PM FINDINGS: Bones/joints: No acute fracture. No dislocation. No joint space narrowing. Soft tissues: No soft tissue radiopaque foreign body. IMPRESSION: No acute fracture or dislocation. Radiologic Study #2: Radiologist's impression: PROCEDURE INFORMATION: Exam: XR Right Elbow Exam date and time: 06/26/2025 8:40 PM Age: 44 years old Clinical indication: Right elbow pain TECHNIQUE: Imaging protocol: Radiologic exam of the right elbow. Views: 3 or more views. COMPARISON: No relevant prior studies available. FINDINGS: Bones/joints: No acute fracture. No dislocation. No joint effusion. Soft tissues: No soft tissue radiopaque foreign body. IMPRESSION: No acute fracture or dislocation PFSH All Active Problems (Updated 06/26/25 @ 21:57 by Lin Jha) Acute pain of right wrist (Acute) Pain in joint of right elbow (Acute) Fall (Acute) Dyspareunia in female (Acute 07/09/17) Diabetic foot ulcer (Acute) Orthopnea (Acute) Edema of both lower legs (Acute) l>r .. chf? INACTIVITY? Fatty infiltration of liver (Acute) Hx cirrhosis? 2' pancreatitis (05/2024)? Obstructive sleep apnea of adult (Acute) [facility] 12/23/23 Diabetic cataract of right eye (Acute) Ulcer of right foot limited to breakdown of skin (Acute 04/16/23) [facility] Podiatry Ulcer of left foot, limited to breakdown of skin (Acute 04/16/23) [facility] Podiatry Iron deficiency (Acute) 03/2023 iron studies indicating deficiency (NOT anemic) Chronic constipation (Chronic) [facility] GI Obesity (Chronic) Diabetic neuropathy (Acute) Tobacco use disorder (Chronic) Started smoking age 9 Polypharmacy (Chronic 12/14/15) Mild nonproliferative diabetic retinopathy associated with type 2 diabetes mellitus (Chronic 01/22/16) Depressive disorder (Chronic 10/31/14) ADMISSION SUICIDAL THOUGHTS 06/13/14 OD ATTEMPTS IN PAST Chronic nausea (Chronic) EGD 04/16/16 Dr. 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) Medical History Asthma Cirrhosis of liver [facility] GI Mental health disorder Pt reports being diagnosed with bipolar disorder, disassociative disorder, anxiety, & multiple personality disorder Gastroparesis (06/28/16) 03/17/[address] 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 GI Premature surgical menopause JAD/BSO in late 20s, no HRT Hepatitis C 02/14/2016 labwork: undetectable RNA level Surgical History S/P cholecystectomy (06/12/24) Dr Reyes Status post total hysterectomy and bilateral salpingo-oophorectomy (~2006) noncancerous reasons Status post left foot surgery (10/2022) Left fourth metatarsal head excision for chronic ulcer, osteomyelitis ([facility]/Tamia Vidales, DPM) Status post section (~2003) EGD (04/16/16) Dr. Ferrer Family History Mother , 46yo due to kidney & liver failure due to alcohol Substance use disorder Alcohol use disorder Father , 62yo from ALS Substance use disorder Alcohol use disorder ALS (amyotrophic lateral sclerosis) Grandmother Colon cancer Paternal Paternal Uncle Cardiac arrest Substance use disorder Alcohol and Pain Medication Abuse Social History Smoking/Tobacco Use Status: Current every day Tobacco Type: cigarettes Smoking packs per day: 1 Smoking cigarettes per day: 20.0 Years smoked: 34 Smoking pack-years: 34.00 Tobacco: How many years used: 33 Quit status: considering quitting Smoking risk assessment performed?: Yes Alcohol Intake: never Drug use: Occasionally Substance use type: former substance user and marijuana Details: Pt. 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 Pets and animals: Yes (1 dog, 4 cats) Pets and animals: cat(s) and dog(s) Sexually active: Yes Do you think of yourself as: straight/heterosexual Current gender identity: female Other: 09/2022: pt reports she is engaged What is your relationship status?: How often do you talk on the phone with friends or family?: three or more times per week How often do you get together with friends or relatives?: once per week How often do you attend taoism or judaism services?: decline to answer Do you belong to any clubs or organized social groups?: no Panel score (0-1 are the most socially isolated patients): 2 What type of physical activity do you participate in: none Duration: decline to answer Frequency: decline to answer Seatbelt use: always Helmet use: No (No reason to wear one) Drive intox or ride 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
[2025-06-26] MEDS: Ketorolac 30 MG/ML VIAL IM (20:23)
--- NOTE | 2025-06-26 20:30 | DI.RAD_ITS ---
Exam(s) XR WRIST RT COMPLETE EXAM: XR WRIST RT COMPLETE CLINICAL HISTORY: R wrist and elbow pain s/p fall. TECHNIQUE: 2D digital imaging was performed of the right wrist. Four views were obtained. PA, lateral and oblique views were obtained. COMPARISON: CR,XR XR WRIST LT COMPLETE from 03/06/2024 FINDINGS: BONES: No acute fracture is present. No bony destructive lesion is seen. JOINTS: The carpal bones are normally aligned. SOFT TISSUE: Normal. IMPRESSION: 1. There is no acute fracture or dislocation present. 2. The preliminary [facility] report was reviewed. DATA REPOSITORY: RADIATION DOSE DELIVERED:
--- NOTE | 2025-06-26 20:30 | DI.RAD_ITS ---
Exam(s) XR ELBOW RT COMPLETE EXAM: XR ELBOW RT COMPLETE CLINICAL HISTORY: R wrist and elbow pain s/p fall. TECHNIQUE: 2D digital imaging was performed of the left elbow. Four images were obtained. AP, lateral and oblique views were obtained. COMPARISON: CR,XR XR ELBOW LT COMPLETE from 03/06/2024 FINDINGS: BONES: There is a lucency seen through the radial head (image 1) suspicious for nondisplaced radial head fracture. It is best appreciated on the oblique view. No bony destructive lesion is seen. JOINTS: The elbow is normally aligned. No joint effusion is seen. SOFT TISSUE: Normal. IMPRESSION: 1. Findings suspicious for nondisplaced radial head fracture. CT scan of the elbow may be obtained for further evaluation. 2. Findings were discussed with John Buenrostro at 8:21 a.m. on 06/27/2025. DATA REPOSITORY: RADIATION DOSE DELIVERED:
[2025-06-26 21:01] VITALS: PULSE 83; O2SAT 97
--- NOTE | 2025-06-26 21:53 | DI.[facility]_ITS ---
PROCEDURE INFORMATION: Exam: XR Right Elbow Exam date and time: 06/26/2025 8:40 PM Age: 44 years old Clinical indication: Right elbow pain TECHNIQUE: Imaging protocol: Radiologic exam of the right elbow. Views: 3 or more views. COMPARISON: No relevant prior studies available. FINDINGS: Bones/joints: No acute fracture. No dislocation. No joint effusion. Soft tissues: No soft tissue radiopaque foreign body. IMPRESSION: No acute fracture or dislocation. Dictated and Authenticated by: Get Nelson MD. Orderin Selena Ceballos MD
--- NOTE | 2025-06-26 21:53 | DI.[facility]_ITS ---
PROCEDURE INFORMATION: Exam: XR Right Wrist Exam date and time: 06/26/2025 8:43 PM Age: 44 years old Clinical indication: Right wrist pain TECHNIQUE: Imaging protocol: Radiologic exam of the right wrist. Views: 3 or more views. COMPARISON: CR XR ELBOW RT COMPLETE 06/26/2025 8:40 PM FINDINGS: Bones/joints: No acute fracture. No dislocation. No joint space narrowing. Soft tissues: No soft tissue radiopaque foreign body. IMPRESSION: No acute fracture or dislocation. Dictated and Authenticated by: Get Nelson MD. Orderin Selena Ceballos MD
--- NOTE | 2025-06-27 09:21 | W.ED.FU ---
Date of service: 06/27/25 Time of Service: 09:21 Follow Up Plan: Spoke to the patient on the phone in regards to her subtle possible fracture of the radial head, I spoke with Dr. Bullock about this over read. He states that if the patient is 11 days out they should be using their elbow as tolerated, I communicated this to the patient that they could use a neoprene sleeve or other gentle compression wrap and perform RICE therapy and therapeutic dosing of Tylenol and ibuprofen, they requested further pain management, I stated I did not see them here in the ER and could not provide any narcotic by prescription I recommend they call her primary doctor and get a referral to orthopedics as they state their elbow has been very painful with some clicking and occasionally locking up intermittently.
== END 2025-06-26 22:08 | disposition home or self-care (01) ==
PROVIDERS: Emergency Provider Nurse Practitioner Family; PCP Internal Medicine
DX: M25.531 Pain in right wrist (principal); M25.521 Pain in right elbow; W01.0XXA Fall on same level from slipping, tripping and stumbling without subsequent striking against object, initial encounter
CPT/HCPCS: 99283; 99284; 96372; 73080; 73110; J1885

== ENCOUNTER 2025-06-30 19:13 | Emergency (ER) | payer OTHER, SELFPAY ==
--- NOTE | 2025-06-30 19:15 | DI.RAD_ITS ---
Exam(s) XR ELBOW RT COMPLETE EXAM: XR ELBOW RT COMPLETE CLINICAL HISTORY: Pain. TECHNIQUE: 2D digital imaging was performed. COMPARISON: CR,XR XR ELBOW RT COMPLETE from 06/26/2025 FINDINGS: Four views There is an extremely subtle radial head fracture. This is at the cortical surface; nondepressed. Best seen on the AP view. The adjacent capitellum appears unremarkable. Remainder of the osseous structures of the elbow appear unremarkable. There is no elevation of the fat pads. IMPRESSION: Very subtle nondisplaced and nondepressed fracture of the radial head. Report called by myself to ER provider 06/30/2025 at 8:35 p.m. DATA REPOSITORY: RADIATION DOSE DELIVERED:
[2025-06-30 19:20] VITALS: BP 167/88; PULSE 67; RESP 15; TEMP 35.9; O2SAT 96
--- NOTE | 2025-06-30 19:55 | ED.GENADUL_ITS ---
Discharge Plan Disposition Patient Disposition: Home Condition: Stable Discharge Details Clinical Impression: Elbow pain, right Primary Care Provider: Kevin Lehman ED Provider: Sandrita Gautam Home Meds and New Rx's Prescriptions: No Action metoclopramide HCl 10 mg tablet 10 mg PO .tid ac Rx Instructions: administer 30 minutes before meals ondansetron 8 mg tablet,disintegrating 8 mg PO BID PRN (Reason: nausea and vomiting) Qty: 60 11RF ipratropium-albuterol 0.5 mg-3 mg(2.5 mg base)/3 mL solution for nebulization 3 ml inhalation QID PRN (Reason: wheezing) Qty: 180 1RF Rx Instructions: During asthma exacerbation, may use preventatively TID, titrating down to QID PRN as wheeze & SOB improve. atorvastatin 80 mg tablet 80 mg PO DAILY Qty: 90 3RF (DME) Dexcom G6 Sensor Device See Rx Instructions .ROUTE .COMPLEX Qty: 3 6RF Dose Instruction: USE DIRECTED Rx Instructions: USE DIRECTED methadone [Methadone Intensol] 10 mg/mL concentrate 77 mg PO DAILY naloxone [Narcan] 4 mg/actuation spray,non-aerosol 4 mg intranasal Q2M PRN (Reason: opioid overdose) Qty: 2 0RF Rx Instructions: spray 1 dose into ONE nostril; alternate nostrils w each dose until help arrives (DME) Dexcom G6 Transmitter Device See Rx Instructions .Route Qty: 3 3RF Rx Instructions: As directed pregabalin 200 mg capsule 200 mg PO TID Qty: 90 3RF Patient Comments: -- Pt states she is taking both pregabalin and gabapentin (DME) foam pillow triangular See Rx Instructions .Route .MEDSUPPLY Qty: 1 0RF Rx Instructions: Trial sleeping & resting (legs need elevation) @ 30-40' angle to alleviate SOB/Panic (DME) pen needle, diabetic [BD Ultra-Fine Yamini Pen Needle] 32 gauge x 5/32 needle See Rx Instructions .ROUTE .COMPLEX Qty: 100 0RF Dose Instruction: USE TO ADMINISTER INSULIN ONCE DAILY Rx Instructions: USE TO ADMINISTER INSULIN ONCE DAILY (DME) blood-glucose meter Misc See Rx Instructions .Route Qty: 1 0RF Rx Instructions: One Touch meter (DME) lancets Misc See Rx Instructions .ROUTE .MEDSUPPLY Qty: 400 3RF Rx Instructions: As directed to check blood glucose four times daily. On insulin. Dispense one touch ultra (DME) Blood Glucose Test Strip See Rx Instructions .MEDSUPPLY Qty: 400 3RF Rx Instructions: As directed to check blood glucose four times daily. On insulin. Dispense one touch ultra magnesium oxide 400 mg (241.3 mg magnesium) tablet 400 mg PO BID Qty: 180 0RF nystatin 100,000 unit/gram powder 1 applic Topical BID PRN (Reason: fungal skin infection) Qty: 30 3RF Rx Instructions: Apply powder to affected area under R breast twice daily polyethylene glycol 3350 [Miralax] 17 gram/dose powder 17 g PO DAILY PRN (Reason: constipation/gastroparesis) Qty: 238 0RF Ajovy Autoinjector 225 mg/1.5 mL auto-injector 225 mg subcut QMONTH Patient Comments: Pt has missed the last 2 months Botox 100 unit recon soln 300 unit IM ONCE Patient Comments: -- Pt's last dose was 3 months ago, next dose due anytime Rx Instructions: divided among affected muscles clonidine HCl 0.1 mg tablet 0.1 mg PO TID sumatriptan succinate 100 mg tablet 100 mg PO QDAY MDD 200mg PRN (Reason: migraine headache) Qty: 10 0RF Rx Instructions: Please take 1 daily as needed for headache may repeat in 2 hours Do not take more than 2 tablets in a 24-hour. lurasidone 80 mg tablet 40 mg PO DAILY Patient Comments: TAKE ONE TABLET BY MOUTH EVERY DAY WITH AT LEAST 350 CALORIES furosemide 20 mg tablet 20 mg PO QAM metoprolol succinate 100 mg tablet extended release 24 hr 100 mg PO DAILY acyclovir 800 mg tablet 800 mg PO DAILY hydroxyzine pamoate 50 mg capsule 50 mg PO BID Patient Comments: TAKE ONE CAPSULE BY MOUTH TWICE A DAY dextroamphetamine-amphetamine 30 mg tablet 30 mg PO BID Patient Comments: TAKE ONE TABLET BY MOUTH TWICE A DAY @ 5am, 11am olmesartan 20 mg tablet 20 mg PO DAILY valacyclovir 1 gram tablet 1,000 mg PO DAILY PRN (Reason: for flares) Patient Comments: TAKE ONE TABLET BY MOUTH EVERY DAY prn flares methocarbamol 500 mg tablet 500 mg PO HS PRN (Reason: muscle spasm) Rx Instructions: Use lowest effective dose for shortest duration for muscle spasm omeprazole 40 mg capsule,delayed release(DR/EC) 40 mg PO BID acetaminophen 500 mg tablet 1,000 mg PO Q6H MDD 3000 mg PRN (Reason: fever or pain) Rx Instructions: 1 month supply gabapentin 300 mg capsule 300 mg PO HS Patient Comments: -- Pt states she is taking both pregabalin and gabapentin albuterol sulfate 90 mcg/actuation HFA aerosol inhaler 2 puff Inhalation Q4H PRN (Reason: shortness of breath or wheezing) Rx Instructions: DISPENSE ALBUTEROL INHALER BRAND COVERED BY INSURANCE insulin aspart U-100 [Novolog FlexPen U-100 Insulin] 100 unit/mL (3 mL) insulin pen 10 - 15 unit subcut AC Rx Instructions: -- Pt uses 10-15 units sliding scale before meals Gvoke HypoPen 2-Pack 1 mg/0.2 mL auto-injector 1 mg subcut ONCE PRN (Reason: per hypoglycemic protocol) Rx Instructions: HYPOGLYCEMIA; as a single dose; may repeat once after 15 minutes if no response Natural Tears (PF) 0.1-0.3 % dropperette 1 drp ophthalmic (eye) QID PRN lorazepam 1 mg tablet 1 mg PO TID Patient Comments: TAKE ONE TABLET BY MOUTH EVERY DAY NEEDED FOR ANXIETY tobramycin-dexamethasone 0.3-0.1 % drops,suspension 1 drp ophthalmic (eye) BID Patient Comments: INSTILL 1 DROP INTO BOTH EYES THREE TIMES A DAY cyclosporine [Restasis] 0.05 % dropperette 1 drp ophthalmic (eye) BID Patient Comments: INSTILL 1 DROP INTO BOTH EYES TWICE DAILY DIRECTED Discharge Instructions Instructions: Elbow Fracture, Adult ED Additional Instructions: Wear the splint until follow up with Orthopedics, Do not get the sling wet. You were placed on a care management list to follow up with Orthopedics, they should call you for an appointment. You may loosen the Eliceo wrap if your fingers currently turn cold blue numb or tingly. But do not take the splint off. Please take Tylenol or Ibuprofen with food every 4-6 hours as needed for pain and swelling. Referrals: Amor Crenshaw MD [ [facility] STAFF PHYSICIAN, Orthopaedic Surgical] - 1 week Referral Note: ER follow up, Right elbow fracture HPI General Mode of arrival: ambulatory . Date/Time Provider Initiated Documentation: 06/30/25 19:17 . Limitations to Documentation: no limitations . Information obtained by: patient, RN notes reviewed and old records reviewed . HPI Narrative: 44 year old female presents to the ER with a cc of right elbow pain. Patient was seen here 4 days ago and was placed in a universal wrist splint and Eliceo wrap. She reports that since then her pain has gotten worse. She states that initially the x-rays were read as negative and then she received a call couple days later that there were concern for possible fracture. She has not made an appointment with orthopedics. She did take Tylenol prior to arrival. Related Data Home Medications ?Medication ?Instructions ?Recorded ?Confirmed pen needle, diabetic 32 gauge x #100 ea 06/30/2306/26/32 (BD Ultra-Fine Yamini Pen Needle) blood-glucose meter #1 ea 08/28/23 06/26/25 lancets #400 ea 08/28/23 06/26/25 naloxone 4 mg/actuation nasal 4 mg intranasal Q2M PRN opioid 02/13/24 06/30/25 spray (Narcan) overdose #2 ea blood sugar diagnostic (Blood #400 ea 04/26/24 5 Glucose Test strips) magnesium oxide 400 mg (241.3 mg 400 mg PO BID #180 ta bs 04/26/24 06/30/25 magnesium) tablet nystatin 100,000 unit/gram topical 1 applic topical BI D PRN fungal 05/25/24 06/30/25 powder skin infection #30 grams ipratropium 0.5 mg-albuterol 3 mg 3 ml inhalation QID PRN wheezing 05/31/24 06/30/25 (2.5 mg base)/3 mL nebulization #180 mL soln metoclopramide HCl 10 mg tablet 10 mg PO .tid ac 05/3106/30/25 ondansetron 8 mg disintegrating 8 mg PO BID PRN nausea and 05/31/24 06/30/25 tablet vomiting #60 tabs fremanezumab-vfrm 225 mg/1.5 mL 225 mg subcut QMONTH 0 06/07/24 06/30/25 subcutaneous auto-injector (Ajovy) onabotulinumtoxinA 100 unit 300 unit IM ONCE 06/07/24 06/30/25 solution for injection (Botox) lurasidone 80 mg tablet 40 mg PO DAILY 06/08/2406/16 atorvastatin 80 mg tablet 80 mg PO DAILY #90 tabs 11/1506/30/25 blood-glucose sensor (Dexcom G6 #3 ea 06/23/24 5 Sensor device) methadone 10 mg/mL oral 77 mg PO DAILY 06/23/2406/16 concentrate (Methadone Intensol) blood-glucose transmitter (Dexcom #3 ea 07/07/2406/26 G6 Transmitter device) foam pillow #1 ea 07/07/24 06/26/25 pregabalin 200 mg capsule 200 mg PO TID #90 caps 07/0706/30/25 polyethylene glycol 3350 17 17 g PO DAILY PRN 08/02/24 06/30/25 gram/dose oral powder (Miralax) constipation/gastropar esis #238 grams clonidine HCl 0.1 mg tablet 0.1 mg PO TID 09/19/2406/16 acetaminophen 500 mg tablet 1,000 mg PO Q6H PRN fever or pain 01/16/25 06/30/25 acyclovir 800 mg tablet 800 mg PO DAILY 01/16/2506/16 albuterol sulfate 90 mcg/actuation 2 puff inhalation Q 4H PRN 01/16/25 06/30/25 aerosol inhaler shortness of breath or wheez ing dextran 70-hypromellose (PF) 0.1 1 drp ophthalmic (eye ) QID PRN 01/16/25 06/30/25 %-0.3 % eye drops in a dropperette (Natural Tears (PF)) dextroamphetamine-amphetamine 30 30 mg PO BID 01/16/25 06/30/25 mg tablet furosemide 20 mg tablet 20 mg PO QAM 01/16/25 gabapentin 300 mg capsule 300 mg PO HS back pain 01/1606/30/25 glucagon 1 mg/0.2 mL subcutaneous 1 mg subcut ONCE PRN per 01/16/25 06/30/25 auto-injector (Gvoke HypoPen hypoglycemic protocol 2-Pack) hydroxyzine pamoate 50 mg capsule 50 mg PO BID 5 06/30/25 insulin aspart U-100 100 unit/mL 10 - 15 unit subcut A C 01/16/25 06/30/25 (3 mL) subcutaneous pen (Novolog FlexPen U-100 Insulin aspart) methocarbamol 500 mg tablet 500 mg PO HS PRN muscle sp asm 01/16/25 06/30/25 metoprolol succinate 100 mg 100 mg PO DAILY 01/16/25 1 tablet,extended release 24 hr olmesartan 20 mg tablet 20 mg PO DAILY 01/16/25 10/0 06/16 omeprazole 40 mg capsule,delayed 40 mg PO BID 01/16/25 06/30/25 release valacyclovir 1 gram tablet 1,000 mg PO DAILY PRN for f bishop 01/16/25 06/30/25 sumatriptan succinate 100 mg tablet 100 mg PO QDAY PRN migraine 05/24/25 06/30/25 headache #10 tabs cyclosporine 0.05 % eye drops in a 1 drp ophthalmic (e ye) BID 06/16/25 06/30/25 dropperette (Restasis) lorazepam 1 mg tablet 1 mg PO TID 06/16/25 5 tobramycin 0.3 %-dexamethasone 0.1 1 drp ophthalmic (e ye) BID 06/16/25 06/30/25 % eye drops,suspension Previous Rx's ?Medication ?Instructions ?Recorded pen needle, diabetic 32 gauge x #100 ea 06/30/23 (BD Ultra-Fine Yamini Pen Needle) blood-glucose meter #1 ea 08/28/23 lancets #400 ea 08/28/23 naloxone 4 mg/actuation nasal 4 mg intranasal Q2M PRN opioid 02/13/24 spray (Narcan) overdose #2 ea blood sugar diagnostic (Blood #400 ea 04/26/24 Glucose Test strips) magnesium oxide 400 mg (241.3 mg 400 mg PO BID #180 ta bs 04/26/24 magnesium) tablet nystatin 100,000 unit/gram topical 1 applic topical BI D PRN fungal 05/25/24 powder skin infection #30 grams ipratropium 0.5 mg-albuterol 3 mg 3 ml inhalation QID PRN wheezing 05/31/24 (2.5 mg base)/3 mL nebulization #180 mL soln ondansetron 8 mg disintegrating 8 mg PO BID PRN nausea and 05/31/24 tablet vomiting #60 tabs atorvastatin 80 mg tablet 80 mg PO DAILY #90 tabs 11/15 blood-glucose sensor (Dexcom G6 #3 ea 06/23/24 Sensor device) blood-glucose transmitter (Dexcom #3 ea 07/07/24 G6 Transmitter device) foam pillow #1 ea 07/07/24 pregabalin 200 mg capsule 200 mg PO TID #90 caps 07/07 polyethylene glycol 3350 17 17 g PO DAILY PRN 08/02/24 gram/dose oral powder (Miralax) constipation/gastropar esis #238 grams sumatriptan succinate 100 mg tablet 100 mg PO QDAY PRN migraine 05/24/25 headache #10 tabs Allergies Allergy/AdvReac Type Severity Reaction Status Date / Time Penicillins Allergy Severe lip and Verified 06/30/25 19:23 facial swelling lamotrigine (From Lamictal) Allergy Unknown Skin Rash Verified 06/30/25 19:23 clindamycin AdvReac Severe Nausea & Verified 06/30/25 19:23 vomiting aspirin AdvReac Intermediate nausea/pain Verified 06/30/25 19:23 General Stated Complaint: Orthopedic CARLOS: 4 Review of Systems Musculoskeletal Musculoskeletal: Reports arthralgias Course Vital Signs Vital signs: Vital Signs Temperature 35.9 C L 06/30/25 19:20 Pulse 67 06/30/25 19:20 Respiratory Rate 15 06/30/25 19:20 Blood Pressure 167/88 H 06/30/25 19:20 Pulse Oximetry 96 06/30/25 19:20 Temperature 35.9 C L 06/30/25 19:20 Temperature Source Temporal Artery Scan 06/30/25 19:20 Pulse 67 06/30/25 19:20 Respiratory Rate 15 06/30/25 19:20 Blood Pressure 167/88 H 06/30/25 19:20 Blood Pressure Position Sitting 06/30/25 19:20 Pulse Oximetry 96 06/30/25 19:20 Pain Level 10 06/30/25 19:20 Procedure Orthopedic Splinting/Casting Date of Procedure: 06/30/25 Time of procedure: 20:22 Provider that performed the procedure: Sandrita Gautam Patient Consented: Verbally Side: right Upper Extremity Injury Location: elbow Upper Extremity Immobilizer: posterior splint and Eliceo wrap Procedure Description/Note: Posterior long arm splint applied, CMS intact post splint application, patient tolerated with some difficulty. Medical Decision Making 44 year old female presents to the ER with a cc of right elbow pain. Patient was seen here 4 days ago and was placed in a universal wrist splint and Eliceo wrap. She reports that since then her pain has gotten worse. She states that initially the x-rays were read as negative and then she received a call couple days later that there were concern for possible fracture. She has not made an appointment with orthopedics. She did take Tylenol prior to arrival. Repeat x-rays ordered. Will give [address] in a posterior long-arm splint and a sling. Posterior long arm splint applied and Sling. Tramadol ordered. Will place patient o ortho follow up list. This text was generated using Chartbeatation system, please disregard any oddities of phrase or misspellings. PFSH All Active Problems (Updated 06/30/25 @ 20:25 by Sandrita Gautam NP) Elbow pain, right (Acute) Acute pain of right wrist (Acute) Pain in joint of right elbow (Acute) Fall (Acute) Dyspareunia in female (Acute 07/09/17) Diabetic foot ulcer (Acute) Orthopnea (Acute) Edema of both lower legs (Acute) l>r .. chf? INACTIVITY? Fatty infiltration of liver (Acute) Hx cirrhosis? 2' pancreatitis (05/2024)? Obstructive sleep apnea of adult (Acute) [facility] 12/23/23 Diabetic cataract of right eye (Acute) Ulcer of right foot limited to breakdown of skin (Acute 04/16/23) [facility] Podiatry Ulcer of left foot, limited to breakdown of skin (Acute 04/16/23) [facility] Podiatry Iron deficiency (Acute) 03/2023 iron studies indicating deficiency (NOT anemic) Chronic constipation (Chronic) [facility] GI Obesity (Chronic) Diabetic neuropathy (Acute) Tobacco use disorder (Chronic) Started smoking age 9 Polypharmacy (Chronic 12/14/15) Mild nonproliferative diabetic retinopathy associated with type 2 diabetes mellitus (Chronic 01/22/16) Depressive disorder (Chronic 10/31/14) ADMISSION SUICIDAL THOUGHTS 06/13/14 OD ATTEMPTS IN PAST Chronic nausea (Chronic) EGD 04/16/16 Dr. 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) Medical History Asthma Cirrhosis of liver [facility] GI Mental health disorder Pt reports being diagnosed with bipolar disorder, disassociative disorder, anxiety, & multiple personality disorder Gastroparesis (06/28/16) 03/17/[address] 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) Takes daily suppression Hyperlipidemia (09/30/16) 10-year ASCVD risk = unable to calculate due to not being age 40+ however dx T2DM, so Rx for statin Type 2 diabetes mellitus, with long-term current use of insulin With neuropathy & retinopathy (left, mild) Migraine [facility] Neuro Opioid use disorder MAT with methadone Chronic fatigue (07/19/15) Osteomyelitis Ulcer of foot due to secondary diabetes Umbilical hernia (03/11/18) 03/17/2018: [facility] GI Premature surgical menopause JAD/BSO in late 20s, no HRT Hepatitis C 02/14/2016 labwork: undetectable RNA level Surgical History S/P cholecystectomy (06/12/24) Dr Reyes Status post total hysterectomy and bilateral salpingo-oophorectomy (~2006) noncancerous reasons Status post left foot surgery (10/2022) Left fourth metatarsal head excision for chronic ulcer, osteomyelitis ([facility]/Tamia Vidales DPM) Status post section (~2003) EGD (04/16/16) Dr. Ferrer Family History Mother , 46yo due to kidney & liver failure due to alcohol Substance use disorder Alcohol use disorder Father , 62yo from ALS Substance use disorder Alcohol use disorder ALS (amyotrophic lateral sclerosis) Grandmother Colon cancer Paternal Paternal Uncle Cardiac arrest Substance use disorder Alcohol and Pain Medication Abuse Social History Smoking/Tobacco Use Status: Current every day Tobacco Type: cigarettes Smoking packs per day: 1 Smoking cigarettes per day: 20.0 Years smoked: 34 Smoking pack- years: 34.00 Tobacco: How many years used: 33 Quit status: considering quitting Smoking risk assessment performed?: Yes Alcohol Intake: never Drug use: Occasionally Substance use type: former substance user and marijuana Details: Pt. 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 Pets and animals: Yes (1 dog, 4 cats) Pets and animals: cat(s) and dog(s) Sexually active: Yes Do you think of yourself as: straight/heterosexual Current gender identity: female Other: 09/2022: pt reports she is engaged What is your relationship status?: How often do you talk on the phone with friends or family?: three or more times per week How often do you get together with friends or relatives?: once per week How often do you attend hinduism or shinto services?: decline to answer Do you belong to any clubs or organized social groups?: no Panel score (0-1 are the most socially isolated patients): 2 What type of physical activity do you participate in: none Duration: decline to answer Frequency: decline to answer Seatbelt use: always Helmet use: No (No reason to wear one) Drive intox or ride w/intox 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
[2025-06-30] MEDS: Ibuprofen 600 MG TAB PO (20:03)
[2025-06-30] MEDS: traMADol 50 MG TAB PO (20:30)
[2025-06-30 20:37] VITALS: PULSE 76; RESP 18; O2SAT 97
--- NOTE | 2025-06-30 20:55 | DI.VRAD_ITS ---
PROCEDURE INFORMATION: Exam: XR Right Elbow Exam date and time: 06/30/2025 7:41 PM Age: 44 years old Clinical indication: Other: RT elbow pain TECHNIQUE: Imaging protocol: Radiologic exam of the right elbow. Views: 3 or more views. COMPARISON: CR XR ELBOW RT COMPLETE 01/29/2025 20:40 FINDINGS: Bones/joints: Bone mineralization is age-appropriate. There is no evidence of fracture. No evidence of dislocation. The joint spaces are adequately preserved; no significant degenerative narrowing and no bony erosion seen. Soft tissues: No radiopaque foreign body present. There is soft tissue swelling present. IMPRESSION: 1. No acute osseous abnormality. 2. There is soft tissue swelling present. Dictated and Authenticated by: Ector Michele MD. Orderin Dain Remy MD
--- NOTE | 2025-07-02 16:55 | NUR.NOTE ---
Access chart to get the discharge diagnosis and to print the demographic sheet for [facility] billing requisition. Nursing Note:
== END 2025-06-30 20:38 | disposition home or self-care (01) ==
PROVIDERS: Emergency Provider Registered Nurse Emergency; PCP Internal Medicine
DX: M25.521 Pain in right elbow (principal)
CPT/HCPCS: 99283 ×2; 29125; 73080

== ENCOUNTER 2025-07-05 18:49 | Emergency (ER) | payer OTHER, SELFPAY ==
[2025-07-05 18:53] VITALS: BP 177/124; PULSE 85; RESP 20; TEMP 36.6; O2SAT 97
[2025-07-05] MEDS: Lactated Ringers 1,000 ML 1000 ML IV (20:12)
[2025-07-05 20:13] LABS: Abs Immature Grans 0.06 10^3/uL (0.0-0.06); HCT 44.9 % (36.0-46.0); HGB 13.9 g/dL (11.2-15.7); Immature Grans % 0.4 %; MCH 22.0 pg (27.0-33.0); MCHC 31.0 % (32.0-36.0); MCV 71 fL (80-95); RBC 6.32 10^6/uL (3.93-5.22); RDW 19.6 % (11.7-14.6); RDW-SD 47.1 fL; WBC 13.60 10^3/uL (4.4-10.8)
[2025-07-05] MEDS: Ondansetron 4 MG/2 ML VIAL IVP (20:18)
[2025-07-05] MEDS: diphenhydrAMINE 50 MG/ML VIAL 25 MG IVP (20:20)
--- NOTE | 2025-07-05 20:24 | W.ED.GENAD ---
Discharge Plan Disposition Patient Disposition: Home Condition: Stable Discharge Details Clinical Impression: Vomiting Primary Care Provider: Kevin Lehman ED Provider: John Buenrostro Home Meds and New Rx's Prescriptions: New ondansetron 8 mg tablet,disintegrating 8 mg PO Q8H PRNQty: 30 0RF ketorolac 10 mg tablet 10 mg PO QID PRNQty: 20 0RF Rx Instructions: maximum total duration of 5 days from all oral, intranasal, or parenteral formulations Continued metoclopramide HCl 10 mg tablet 10 mg PO .tid ac Rx Instructions: administer 30 minutes before meals ondansetron 8 mg tablet,disintegrating 8 mg PO BID PRN (Reason: nausea and vomiting) Qty: 60 11RF ipratropium-albuterol 0.5 mg-3 mg(2.5 mg base)/3 mL solution for nebulization 3 ml inhalation QID PRN (Reason: wheezing) Qty: 180 1RF Rx Instructions: During asthma exacerbation, may use preventatively TID, titrating down to QID PRN as wheeze & SOB improve. atorvastatin 80 mg tablet 80 mg PO DAILY Qty: 90 3RF (DME) Dexcom G6 Sensor Device See Rx Instructions .ROUTE .COMPLEX Qty: 3 6RF Dose Instruction: USE DIRECTED Rx Instructions: USE DIRECTED methadone [Methadone Intensol] 10 mg/mL concentrate 77 mg PO DAILY naloxone [Narcan] 4 mg/actuation spray,non-aerosol 4 mg intranasal Q2M PRN (Reason: opioid overdose) Qty: 2 0RF Rx Instructions: spray 1 dose into ONE nostril; alternate nostrils w each dose until help arrives (DME) Dexcom G6 Transmitter Device See Rx Instructions .Route Qty: 3 3RF Rx Instructions: As directed pregabalin 200 mg capsule 200 mg PO TID Qty: 90 3RF Patient Comments: -- Pt states she is taking both pregabalin and gabapentin (DME) foam pillow triangular See Rx Instructions .Route .MEDSUPPLY Qty: 1 0RF Rx Instructions: Trial sleeping & resting (legs need elevation) @ 30-40' angle to alleviate SOB/Panic (DME) pen needle, diabetic [BD Ultra-Fine Yamini Pen Needle] 32 gauge x 5/32 needle See Rx Instructions .ROUTE .COMPLEX Qty: 100 0RF Dose Instruction: USE TO ADMINISTER INSULIN ONCE DAILY Rx Instructions: USE TO ADMINISTER INSULIN ONCE DAILY (DME) blood-glucose meter Misc See Rx Instructions .Route Qty: 1 0RF Rx Instructions: One Touch meter (DME) lancets Misc See Rx Instructions .ROUTE .MEDSUPPLY Qty: 400 3RF Rx Instructions: As directed to check blood glucose four times daily. On insulin. Dispense one touch ultra (DME) Blood Glucose Test Strip See Rx Instructions .MEDSUPPLY Qty: 400 3RF Rx Instructions: As directed to check blood glucose four times daily. On insulin. Dispense one touch ultra magnesium oxide 400 mg (241.3 mg magnesium) tablet 400 mg PO BID Qty: 180 0RF nystatin 100,000 unit/gram powder 1 applic Topical BID PRN (Reason: fungal skin infection) Qty: 30 3RF Rx Instructions: Apply powder to affected area under R breast twice daily polyethylene glycol 3350 [Miralax] 17 gram/dose powder 17 g PO DAILY PRN (Reason: constipation/gastroparesis) Qty: 238 0RF Ajovy Autoinjector 225 mg/1.5 mL auto-injector 225 mg subcut QMONTH Patient Comments: Pt has missed the last 2 months Botox 100 unit recon soln 300 unit IM ONCE Patient Comments: -- Pt's last dose was 3 months ago, next dose due anytime Rx Instructions: divided among affected muscles clonidine HCl 0.1 mg tablet 0.1 mg PO TID sumatriptan succinate 100 mg tablet 100 mg PO QDAY MDD 200mg PRN (Reason: migraine headache) Qty: 10 0RF Rx Instructions: Please take 1 daily as needed for headache may repeat in 2 hours Do not take more than 2 tablets in a 24-hour. lurasidone 80 mg tablet 40 mg PO DAILY Patient Comments: TAKE ONE TABLET BY MOUTH EVERY DAY WITH AT LEAST 350 CALORIES furosemide 20 mg tablet 20 mg PO QAM metoprolol succinate 100 mg tablet extended release 24 hr 100 mg PO DAILY acyclovir 800 mg tablet 800 mg PO DAILY hydroxyzine pamoate 50 mg capsule 50 mg PO BID Patient Comments: TAKE ONE CAPSULE BY MOUTH TWICE A DAY dextroamphetamine-amphetamine 30 mg tablet 30 mg PO BID Patient Comments: TAKE ONE TABLET BY MOUTH TWICE A DAY @ 5am, 11am olmesartan 20 mg tablet 20 mg PO DAILY valacyclovir 1 gram tablet 1,000 mg PO DAILY PRN (Reason: for flares) Patient Comments: TAKE ONE TABLET BY MOUTH EVERY DAY prn flares methocarbamol 500 mg tablet 500 mg PO HS PRN (Reason: muscle spasm) Rx Instructions: Use lowest effective dose for shortest duration for muscle spasm omeprazole 40 mg capsule,delayed release(DR/EC) 40 mg PO BID acetaminophen 500 mg tablet 1,000 mg PO Q6H MDD 3000 mg PRN (Reason: fever or pain) Rx Instructions: 1 month supply gabapentin 300 mg capsule 300 mg PO HS Patient Comments: -- Pt states she is taking both pregabalin and gabapentin albuterol sulfate 90 mcg/actuation HFA aerosol inhaler 2 puff Inhalation Q4H PRN (Reason: shortness of breath or wheezing) Rx Instructions: DISPENSE ALBUTEROL INHALER BRAND COVERED BY INSURANCE insulin aspart U-100 [Novolog FlexPen U-100 Insulin] 100 unit/mL (3 mL) insulin pen 10 - 15 unit subcut AC Rx Instructions: -- Pt uses 10-15 units sliding scale before meals Gvoke HypoPen 2-Pack 1 mg/0.2 mL auto-injector 1 mg subcut ONCE PRN (Reason: per hypoglycemic protocol) Rx Instructions: HYPOGLYCEMIA; as a single dose; may repeat once after 15 minutes if no response Natural Tears (PF) 0.1-0.3 % dropperette 1 drp ophthalmic (eye) QID PRN lorazepam 1 mg tablet 1 mg PO TID Patient Comments: TAKE ONE TABLET BY MOUTH EVERY DAY NEEDED FOR ANXIETY tobramycin-dexamethasone 0.3-0.1 % drops,suspension 1 drp ophthalmic (eye) BID Patient Comments: INSTILL 1 DROP INTO BOTH EYES THREE TIMES A DAY cyclosporine [Restasis] 0.05 % dropperette 1 drp ophthalmic (eye) BID Patient Comments: INSTILL 1 DROP INTO BOTH EYES TWICE DAILY DIRECTED Discharge Instructions Instructions: Nausea and Vomiting, Adult ED Additional Instructions: You were seen in the emergency department for your nausea and vomiting of gastroparesis, your symptoms improved, your blood work shows no major concerns of electrolyte abnormalities, have refilled your Zofran and given a 5-day prescription of Toradol, please return for any emergent concerns or intractable nausea or vomiting, take your at home nausea meds as needed. Referrals: Kevin Lehman DO [Primary Care Provider, Medicine] Discharge Data Discharge Date/Time-TO BE ENTERED AT DEPARTURE: 07/05/25 22:22 HPI General Date/Time Provider Initiated Documentation: 07/05/25 18:53. HPI Narrative: 44 year-old female presents to ED today by POV/amblating with a chief complaint of nausea/vomiting, ry heaves, weakness and body aches with onset for a few days. Quality described as generalized body aches, abdominal discomfort, no radiation to hematemesis, coffee-ground emesis, fever, cough, shortness of breath, chest pain, diarrhea, endorses had a BM today. Severity is described as moderate. Palliating factors include nothing specific attempted-patient has 8 mg Zofran's but they seem to make it worse. Provoking factors include nothing specific. Events leading up to the incident/Associated Symptoms: Patient has a long history of gastroparesis, T2DM. Patient not anticoagulated. Related Data Home Medications ?Medication ?Instructions ?Recorded ?Confirmed pen needle, diabetic 32 gauge x #100 ea 06/30/23 07/06/2532 (BD Ultra-Fine Yamini Pen Needle) blood-glucose meter #1 ea 08/28/23 07/06/25 lancets #400 ea 08/28/23 07/06/25 naloxone 4 mg/actuation nasal 4 mg intranasal Q2M PRN opioid 02/13/24 07/06/25 spray (Narcan) overdose #2 ea blood sugar diagnostic (Blood #400 ea 04/26/24 07/06/25 Glucose Test strips) magnesium oxide 400 mg (241.3 mg 400 mg PO BID #180 tabs 04/26/24 07/06/25 magnesium) tablet nystatin 100,000 unit/gram topical 1 applic topical BID PRN fungal 05/25/24 07/06/25 powder skin infection #30 grams ipratropium 0.5 mg-albuterol 3 mg 3 ml inhalation QID PRN wheezing 05/31/24 07/06/25 (2.5 mg base)/3 mL nebulization #180 mL soln metoclopramide HCl 10 mg tablet 10 mg PO .tid ac 05/31/24 07/06/25 ondansetron 8 mg disintegrating 8 mg PO BID PRN nausea and 05/31/24 07/06/25 tablet vomiting #60 tabs fremanezumab-vfrm 225 mg/1.5 mL 225 mg subcut QMONTH 06/07/24 07/06/25 subcutaneous auto-injector (Ajovy) onabotulinumtoxinA 100 unit 300 unit IM ONCE 06/07/24 07/06/25 solution for injection (Botox) lurasidone 80 mg tablet 40 mg PO DAILY 06/08/24 07/06/25 atorvastatin 80 mg tablet 80 mg PO DAILY #90 tabs 06/23/24 07/06/25 blood-glucose sensor (Dexcom G6 #3 ea 06/23/24 07/06/25 Sensor device) methadone 10 mg/mL oral 77 mg PO DAILY 06/23/24 07/06/25 concentrate (Methadone Intensol) blood-glucose transmitter (Dexcom #3 ea 07/07/24 07/06/25 G6 Transmitter device) foam pillow #1 ea 07/07/24 07/06/25 pregabalin 200 mg capsule 200 mg PO TID #90 caps 07/07/24 07/06/25 polyethylene glycol 3350 17 17 g PO DAILY PRN 08/02/24 07/06/25 gram/dose oral powder (Miralax) constipation/gastroparesis #238 grams clonidine HCl 0.1 mg tablet 0.1 mg PO TID 09/19/24 07/06/25 acetaminophen 500 mg tablet 1,000 mg PO Q6H PRN fever or pain 01/16/25 07/06/25 acyclovir 800 mg tablet 800 mg PO DAILY 01/16/25 07/06/25 albuterol sulfate 90 mcg/actuation 2 puff inhalation Q4H PRN 01/16/25 07/06/25 aerosol inhaler shortness of breath or wheezing dextran 70-hypromellose (PF) 0.1 1 drp ophthalmic (eye) QID PRN 01/16/25 07/06/25 %-0.3 % eye drops in a dropperette (Natural Tears (PF)) dextroamphetamine-amphetamine 30 30 mg PO BID 01/16/25 07/06/25 mg tablet furosemide 20 mg tablet 20 mg PO QAM 01/16/25 07/06/25 gabapentin 300 mg capsule 300 mg PO HS back pain 01/16/25 07/06/25 glucagon 1 mg/0.2 mL subcutaneous 1 mg subcut ONCE PRN per 01/16/25 07/06/25 auto-injector (Gvoke HypoPen hypoglycemic protocol 2-Pack) hydroxyzine pamoate 50 mg capsule 50 mg PO BID 01/16/25 07/06/25 insulin aspart U-100 100 unit/mL 10 - 15 unit subcut AC 01/16/25 07/06/25 (3 mL) subcutaneous pen (Novolog FlexPen U-100 Insulin aspart) methocarbamol 500 mg tablet 500 mg PO HS PRN muscle spasm 01/16/25 07/06/25 metoprolol succinate 100 mg 100 mg PO DAILY 01/16/25 07/06/25 tablet,extended release 24 hr olmesartan 20 mg tablet 20 mg PO DAILY 01/16/25 07/06/25 omeprazole 40 mg capsule,delayed 40 mg PO BID 01/16/25 07/06/25 release valacyclovir 1 gram tablet 1,000 mg PO DAILY PRN for flares 01/16/25 07/06/25 sumatriptan succinate 100 mg tablet 100 mg PO QDAY PRN migraine 05/24/25 07/06/25 headache #10 tabs cyclosporine 0.05 % eye drops in a 1 drp ophthalmic (eye) BID 06/16/25 07/06/25 dropperette (Restasis) lorazepam 1 mg tablet 1 mg PO TID 06/16/25 07/06/25 tobramycin 0.3 %-dexamethasone 0.1 1 drp ophthalmic (eye) BID 06/16/25 07/06/25 % eye drops,suspension ketorolac 10 mg tablet 10 mg PO QID PRN #20 tabs 07/05/25 07/06/25 ondansetron 8 mg disintegrating 8 mg PO Q8H PRN #30 tabs 07/05/25 07/06/25 tablet Previous Rx's ?Medication ?Instructions ?Recorded pen needle, diabetic 32 gauge x #100 ea 06/30/23 (BD Ultra-Fine Yamini Pen Needle) blood-glucose meter #1 ea 08/28/23 lancets #400 ea 08/28/23 naloxone 4 mg/actuation nasal 4 mg intranasal Q2M PRN opioid 02/13/24 spray (Narcan) overdose #2 ea blood sugar diagnostic (Blood #400 ea 04/26/24 Glucose Test strips) magnesium oxide 400 mg (241.3 mg 400 mg PO BID #180 tabs 04/26/24 magnesium) tablet nystatin 100,000 unit/gram topical 1 applic topical BID PRN fungal 05/25/24 powder skin infection #30 grams ipratropium 0.5 mg-albuterol 3 mg 3 ml inhalation QID PRN wheezing 05/31/24 (2.5 mg base)/3 mL nebulization #180 mL soln ondansetron 8 mg disintegrating 8 mg PO BID PRN nausea and 05/31/24 tablet vomiting #60 tabs atorvastatin 80 mg tablet 80 mg PO DAILY #90 tabs 06/23/24 blood-glucose sensor (Dexcom G6 #3 ea 06/23/24 Sensor device) blood-glucose transmitter (Dexcom #3 ea 07/07/24 G6 Transmitter device) foam pillow #1 ea 07/07/24 pregabalin 200 mg capsule 200 mg PO TID #90 caps 07/07/24 polyethylene glycol 3350 17 17 g PO DAILY PRN 08/02/24 gram/dose oral powder (Miralax) constipation/gastroparesis #238 grams sumatriptan succinate 100 mg tablet 100 mg PO QDAY PRN migraine 05/24/25 headache #10 tabs ketorolac 10 mg tablet 10 mg PO QID PRN #20 tabs 07/05/25 ondansetron 8 mg disintegrating 8 mg PO Q8H PRN #30 tabs 07/05/25 tablet Allergies Allergy/AdvReac Type Severity Reaction Status Date / Time Penicillins Allergy Severe lip and Verified 07/06/25 10:53 facial swelling lamotrigine (From Lamictal) Allergy Unknown Skin Rash Verified 07/06/25 10:53 clindamycin AdvReac Severe Nausea & Verified 07/06/25 10:53 vomiting aspirin AdvReac Intermediate nausea/pain Verified 07/06/25 10:53 General Stated Complaint: Nausea/Vomit/Diar CARLOS: 3 Review of Systems All systems reviewed & are unremarkable except as noted in HPI and below Exam Narrative Exam Narrative: GENERAL APPEARANCE: Well-nourished, non-toxic, awake and alert, atraumatic, mild acute distress. SKIN: Warm, pink, dry, intact, without rashes/lesions/ulcerations. HEAD: Normocephalic, atraumatic, normal hair distribution for gender/age. EYES: Normal conjunctiva, no exudates on lids/lashes. ENT: Nares patent, no circumoral cyanosis, no facial swelling NECK: Supple, trachea midline, painless cervical ROM. LUNGS/CHEST: Lungs CTA bilaterally, non-labored respirations, normal A/P diameter, symmetrical expansion, no chest wall deformity HEART (CV/PV): Regular rate and rhythm without murmur, no peripheral edema, no JVD. ABDOMEN: Soft, non-distended, no guarding, mild abdominal discomfort diffusely. MSK: Normal ROM, no swelling/deformity to bilateral UEs or LEs, moving all extremities without weakness, no cyanosis, spine midline without tenderness, normal curvature. NEURO: Mental Status AAOx4 - alert to person, place, time, events No facial droop, no forehead involvement. Motor: No focal weakness - strength 5/5 in bilateral UEs and LEs, proximal and distal, symmetric. Sensory: sensation intact to light touch globally. Gait normal: patient ambulated without ataxia into ED room. PSYCH: euthymic, cooperative, pleasant, appropriate speech Course Vital Signs Vital signs: Vital Signs Temperature 36.6 C 07/05/25 18:53 Pulse 85 07/05/25 18:53 Respiratory Rate 20 07/05/25 18:53 Blood Pressure 177/124 H 07/05/25 18:53 Pulse Oximetry 97 07/05/25 18:53 Temperature 36.6 C 07/05/25 18:53 Temperature Source Temporal Artery Scan 07/05/25 18:53 Pulse 85 07/05/25 18:53 Respiratory Rate 20 07/05/25 18:53 Blood Pressure 177/124 H 07/05/25 18:53 Pulse Oximetry 97 07/05/25 18:53 Lab/Test Results Lab/Test Results: Laboratory Tests Range/Units 07/05/25 19:53 Sodium Cancelled Potassium Cancelled Chloride Cancelled Carbon Dioxide Cancelled Anion Gap Cancelled BUN Cancelled Creatinine Cancelled Est GFR (CKD-EPI 2020) Cancelled Glucose Cancelled Calcium Cancelled Magnesium Cancelled Total Bilirubin Cancelled AST Cancelled ALT Cancelled Alkaline Phosphatase Cancelled Total Protein Cancelled Albumin Cancelled Lipase Cancelled Medical Decision Making This dictation utilizes [id number] dictation software and may contain unedited grammatical errors. 44 year-old female presents to ED today by POV/amblating with a chief complaint of nausea/vomiting, ry heaves, weakness and body aches with onset for a few days. Quality described as generalized body aches, abdominal discomfort, no radiation to hematemesis, coffee-ground emesis, fever, cough, shortness of breath, chest pain, diarrhea, endorses had a BM today. Severity is described as moderate. Palliating factors include nothing specific attempted-patient has 8 mg Zofran's but they seem to make it worse. Provoking factors include nothing specific. Events leading up to the incident/Associated Symptoms: Patient has a long history of gastroparesis, T2DM. Patients' medical history: Opioid use disorder, T2DM, gastroparesis, cirrhosis. Family and social history: Noncontributory. Pertinent exam findings / vital signs include generalized abdominal tenderness without peritoneal signs, negative Husain's sign, benign cardiopulmonary exam. Differential / pathologies of concern include gastroparesis, nausea vomiting, electrolyte abnormality, gastroenteritis, DKA. Diagnostic studies of: - CBC, CMP, VBG, UA, lipase, magnesium. - CBC shows leukocytosis of 13.6 likely in setting of vomiting with no left shift, no anemia - CMP shows mildly low sodium at 131, anion gap of 16.3, glucose 323 - Lipase negative - Magnesium within normal limits - UA shows proteinuria and ketonuria with 3-5 WBCs and glucose spilling, no culture indicated - VBG shows no acidosis Interventions of: - 4 mg IVP Zofran, 25 mg IVP Benadryl, 1 L IVF LR, 15 mg IVP ketorolac. ED Course/Assessment/Plan: 44-year-old female presents with long history of gastroparesis with acute nausea and vomiting over the past few days, she received some antiemetics here, her laboratory workup is quite reassuring save for mild leukocytosis which is nonspecific likely due to vomiting, no severe electrolyte derangements, no evidence of DKA, patient felt better and requested to return home after IV fluids and antiemetics which is reasonable, she had nontender abdomen and long history of similar syndrome therefore CT would not likely benefit in this case, she has been having normal BMs. Findings not consistent with SBO, sepsis, biliary colic, electrolyte abnormality, DKA. Disposition of vomiting. Patient verbalized understanding of the plan and return to ED criteria and engaged in shared decision making. Medical Records Medical records reviewed: Yes I reviewed the patient's medical records. Lab Data Lab results reviewed: Yes I reviewed the patient's lab results. Labs: Laboratory Tests Range/Units 07/05/25 07/05/25 07/05/25 19:53 20:10 21:00 WBC (4.4-10.8) 10^3/uL 13.60 H RBC (3.93-5.22) 10^6/uL 6.32 H Hgb (11.2-15.7) g/dL 13.9 Hct (36.0-46.0) % 44.9 MCV (80-95) fL 71 L MCH (27.0-33.0) pg 22.0 L MCHC (32.0-36.0) % 31.0 L RDW (11.7-14.6) % 19.6 H Plt Count (130-400) 10^3/uL MPV (8.0-11.0) fL Immature Gran % % 0.4 Neutrophils % % 84.3 Lymphocytes % % 10.7 Monocytes % % 4.1 Eosinophils % % 0.3 Basophils % % 0.2 Nucleated RBC % (0.0-0.3) % 0.0 Absolute Neutrophils (1.2-6.7) 10^3/uL 11.46 H Absolute Lymphocytes (1.2-3.4) 10^3/uL 1.46 Absolute Monocytes (0.1-0.8) 10^3/uL 0.56 Absolute Eosinophils (0.0-0.7) 10^3/uL 0.04 Absolute Basophils (0.0-0.2) 10^3/uL 0.03 RBC Morphology See Below Hypochromasia 1+ Anisocytosis 1+ Microcytosis 1+ VBG pH (7.31-7.41) VBG pCO2 (41-51) mmHg VBG pO2 mmHg VBG HCO3 (23-28) mmol/L VBG Total CO2 (24-29) mmol/L VBG O2 Saturation % VBG Base Excess (-2-3) mmol/L Sodium Cancelled 131 L Potassium Cancelled 3.7 Chloride Cancelled 89 L Carbon Dioxide Cancelled 25.7 Anion Gap Cancelled 16.3 H BUN Cancelled 16 Creatinine Cancelled 0.8 Est GFR (CKD-EPI 2020) Cancelled 91.97 Glucose Cancelled 323 H Calcium Cancelled 9.9 Magnesium Cancelled 1.8 Total Bilirubin Cancelled 0.7 AST Cancelled 17 ALT Cancelled 18 Alkaline Phosphatase Cancelled 254 H Total Protein Cancelled 8.9 H Albumin Cancelled 4.1 Lipase Cancelled 15 Urine Color (Yellow) Yellow Urine Clarity (Clear) Clear Urine pH (5-8) 6.5 Ur Specific [place] (1.005-1.025) 1.025 Urine Protein (Neg-Trace) mg/dL >=300 H Urine Ketones (Negative) mg/dL >=160 H Urine Blood (Negative) Negative Urine Nitrite (Negative) Negative Urine Bilirubin (Negative) Moderate H Urine Urobilinogen (Up to 0.2) mg/dL 0.2 Ur Leukocyte Esterase (Negative) Negative Urine RBC (0-2) HPF 0-2 Urine WBC (0-5) HPF 3-5 Ur Epithelial Cells (Negative) HPF Moderate Urine Crystals (Negative) HPF Negative Urine Bacteria (Negative) HPF Few Urine Casts (Negative) LPF Negative Urine Mucus (Negative) Negative Ur Culture Indicated? No Urine Glucose (Negative) mg/dL 500 H Range/Units 07/05/25 21:29 WBC (4.4-10.8) 10^3/uL RBC (3.93-5.22) 10^6/uL Hgb (11.2-15.7) g/dL Hct (36.0-46.0) % MCV (80-95) fL MCH (27.0-33.0) pg MCHC (32.0-36.0) % RDW (11.7-14.6) % Plt Count (130-400) 10^3/uL MPV (8.0-11.0) fL Immature Gran % % Neutrophils % % Lymphocytes % % Monocytes % % Eosinophils % % Basophils % % Nucleated RBC % (0.0-0.3) % Absolute Neutrophils (1.2-6.7) 10^3/uL Absolute Lymphocytes (1.2-3.4) 10^3/uL Absolute Monocytes (0.1-0.8) 10^3/uL Absolute Eosinophils (0.0-0.7) 10^3/uL Absolute Basophils (0.0-0.2) 10^3/uL RBC Morphology Hypochromasia Anisocytosis Microcytosis VBG pH (7.31-7.41) 7.37 VBG pCO2 (41-51) mmHg 46 VBG pO2 mmHg 32 VBG HCO3 (23-28) mmol/L 27 VBG Total CO2 (24-29) mmol/L 25 VBG O2 Saturation % 61 VBG Base Excess (-2-3) mmol/L 2 Sodium Potassium Chloride Carbon Dioxide Anion Gap BUN Creatinine Est GFR (CKD-EPI 2020) Glucose Calcium Magnesium Total Bilirubin AST ALT Alkaline Phosphatase Total Protein Albumin Lipase Urine Color (Yellow) Urine Clarity (Clear) Urine pH (5-8) Ur Specific [place] (1.005-1.025) Urine Protein (Neg-Trace) mg/dL Urine Ketones (Negative) mg/dL Urine Blood (Negative) Urine Nitrite (Negative) Urine Bilirubin (Negative) Urine Urobilinogen (Up to 0.2) mg/dL Ur Leukocyte Esterase (Negative) Urine RBC (0-2) HPF Urine WBC (0-5) HPF Ur Epithelial Cells (Negative) HPF Urine Crystals (Negative) HPF Urine Bacteria (Negative) HPF Urine Casts (Negative) LPF Urine Mucus (Negative) Ur Culture Indicated? Urine Glucose (Negative) mg/dL PFSH All Active Problems (Updated 07/06/25 @ 15:21 by Sandrita Gautam NP) Vomiting (Acute) Vomiting (Acute) Elbow pain, right (Acute) Acute pain of right wrist (Acute) Pain in joint of right elbow (Acute) Fall (Acute) Dyspareunia in female (Acute 07/09/17) Diabetic foot ulcer (Acute) Orthopnea (Acute) Edema of both lower legs (Acute) l>r .. chf? INACTIVITY? Fatty infiltration of liver (Acute) Hx cirrhosis? 2' pancreatitis (05/2024)? Obstructive sleep apnea of adult (Acute) [facility] 12/23/23 Diabetic cataract of right eye (Acute) Ulcer of right foot limited to breakdown of skin (Acute 04/16/23) [facility] Pod[facility] Ulcer of left foot, limited to breakdown of skin (Acute 04/16/23) [facility] Pod[facility]ry Iron deficiency (Acute) 03/2023 iron studies indicating deficiency (NOT anemic) Chronic constipation (Chronic) [facility] Obesity (Chronic) Diabetic neuropathy (Acute) Tobacco use disorder (Chronic) Started smoking age 9 Polypharmacy (Chronic 12/14/15) Mild nonproliferative diabetic retinopathy associated with type 2 diabetes mellitus (Chronic 01/22/16) Depressive disorder (Chronic 10/31/14) ADMISSION SUICIDAL THOUGHTS 06/13/14 OD ATTEMPTS IN PAST Chronic nausea (Chronic) EGD 04/16/16 Dr. 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) Medical History Asthma Cirrhosis of liver [facility] Mental health disorder Pt reports being diagnosed with bipolar disorder, disassociative disorder, anxiety, & multiple personality disorder Gastroparesis (06/28/16) 03/17/[address] 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) Takes daily suppression Hyperlipidemia (09/30/16) 10-year ASCVD risk = unable to calculate due to not being age 40+ however dx T2DM, so Rx for statin Type 2 diabetes mellitus, with long-term current use of insulin With neuropathy & retinopathy (left, mild) Migraine [facility] Neuro Opioid use disorder MAT with methadone Chronic fatigue (07/19/15) Osteomyelitis Ulcer of foot due to secondary diabetes Umbilical hernia (03/11/18) 03/17/2018: [facility] Premature surgical menopause JAD/BSO in late 20s, no HRT Hepatitis C 02/14/2016 labwork: undetectable RNA level Surgical History S/P cholecystectomy (06/12/24) Dr Reyes Status post total hysterectomy and bilateral salpingo-oophorectomy (~2006) noncancerous reasons Status post left foot surgery (10/2022) Left fourth metatarsal head excision for chronic ulcer, osteomyelitis ([facility]/Tamia Vidales DPM) Status post section (~2003) EGD (04/16/16) Dr. Ferrer Family History Mother , 46yo due to kidney & liver failure due to alcohol Substance use disorder Alcohol use disorder Father , 62yo from ALS Substance use disorder Alcohol use disorder ALS (amyotrophic lateral sclerosis) Grandmother Colon cancer Paternal Paternal Uncle Cardiac arrest Substance use disorder Alcohol and Pain Medication Abuse Social History Smoking/Tobacco Use Status: Current every day Tobacco Type: cigarettes Smoking packs per day: 1 Smoking cigarettes per day: 20.0 Years smoked: 34 Smoking pack-years: 34.00 Tobacco: How many years used: 33 Quit status: considering quitting Smoking risk assessment performed?: Yes Alcohol Intake: never Drug use: Occasionally Substance use type: former substance user and marijuana Details: Pt. 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 Pets and animals: Yes (1 dog, 4 cats) Pets and animals: cat(s) and dog(s) Sexually active: Yes Do you think of yourself as: straight/heterosexual Current gender identity: female Other: 09/2022: pt reports she is engaged What is your relationship status?: How often do you talk on the phone with friends or family?: three or more times per week How often do you get together with friends or relatives?: once per week How often do you attend islam or anabaptism services?: decline to answer Do you belong to any clubs or organized social groups?: no Panel score (0-1 are the most socially isolated patients): 2 What type of physical activity do you participate in: none Duration: decline to answer Frequency: decline to answer Seatbelt use: always Helmet use: No (No reason to wear one) Drive intox or ride w/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
[2025-07-05 20:36] LABS: Anisocytosis 1+; Hypochromasia 1+; Microcytosis 1+
[2025-07-05 20:41] LABS: ALT 18 U/L (14-59); AST 17 U/L (15-37); Albumin 4.1 g/dL (3.4-5.0); Alkaline Phosphatase 254 U/L (46-116); Anion Gap 16.3 mmol/L (3-11); BUN 16 mg/dL (7-18); Bilirubin, Total 0.7 mg/dL (0.2-1.0); CO2 25.7 mmol/L (21.0-32.0); Calcium 9.9 mg/dL (8.5-10.1); Chloride 89 mmol/L (98-107); Estimated GFR 91.97 (mL/min/1.73m2); Glucose 323 mg/dL (74-106); Lipase 15 U/L (<78); Magnesium 1.8 mg/dL (1.8-2.4); Potassium 3.7 mmol/L (3.5-5.1); Sodium 131 mmol/L (136-145); Total Protein 8.9 g/dL (6.4-8.2)
[2025-07-05] MEDS: Ketorolac 15 MG/ML VIAL IVP (21:08)
[2025-07-05 21:13] LABS: Glucose 500 mg/dL (Negative)
[2025-07-05 21:24] LABS: C & S Indicated? No; RBC 0-2 HPF (0-2)
[2025-07-05 21:36] VITALS: BP 152/87; PULSE 77; RESP 18; TEMP 36.9; O2SAT 94
[2025-07-05 21:37] LABS: BE (Venous) 2 mmol/L (-2-3); HCO3 (Venous) 27 mmol/L (23-28); O2 Sat (Venous) 61 %; TCO2 (Venous) 25 mmol/L (24-29); pCO2 (Venous) 46 mmHg (41-51); pO2 (Venous) 32 mmHg
[2025-07-05 22:20] VITALS: BP 175/94; PULSE 85; RESP 18; O2SAT 96
--- NOTE | 2025-07-06 10:09 | NUR.NOTE ---
Addendum entered by Yaz Spence 07/06/25 12:02: Prior authorization, provider note not complete, labs sent to PCP. Kevin Lehman; p [phone]; f [phone]. Original Note: Access chart to determine the PCP to send prior authorization for ketorolac tromethamine 10mg tabs to them. Nursing Note:
== END 2025-07-05 22:22 | disposition home or self-care (01) ==
PROVIDERS: Emergency Provider Physician Assistant; PCP Internal Medicine
DX: R11.2 Nausea with vomiting, unspecified (principal); R19.7 Diarrhea, unspecified
CPT/HCPCS: 99284; 99283; 36415; 96374; 96375; 80053; 82805; 83690; 96361; 81003; 81015; 83735; 85025; J1200; J1885; J2405

== ENCOUNTER 2025-07-06 10:36 | Emergency (ER) | payer OTHER, SELFPAY ==
[2025-07-06] VITALS (143 sets, daily range): BP systolic 141–214; BP diastolic 64–117; PULSE 72–105; RESP 10–28; TEMP 36.8; O2SAT 87–100
--- NOTE | 2025-07-06 10:45 | RT.EKG_ITS ---
APPROVED REPORT Exam: Resting ECG Reason for Exam: chest pain Patient Location: E HR:92 bpm ECG Measurements Heart Rate 92 AXIS MA 154 P 50 QRSd 86 QRS 0 QT 392 T 45 QTc 487 Conclusion Sinus rhythm...normal P axis, V-rate 60- 99 Left atrial enlargement...P, P'>60mS, <-0.15mV V1
--- NOTE | 2025-07-06 11:09 | W.ED.GENAD ---
Discharge Plan Disposition Patient Disposition: Home Condition: Stable Discharge Details Clinical Impression: Vomiting Primary Care Provider: Kevin Lehman ED Provider: Sandrita Gautam Home Meds and New Rx's Prescriptions: No Action metoclopramide HCl 10 mg tablet 10 mg PO .tid ac Rx Instructions: administer 30 minutes before meals ondansetron 8 mg tablet,disintegrating 8 mg PO BID PRN (Reason: nausea and vomiting) Qty: 60 11RF ipratropium-albuterol 0.5 mg-3 mg(2.5 mg base)/3 mL solution for nebulization 3 ml inhalation QID PRN (Reason: wheezing) Qty: 180 1RF Rx Instructions: During asthma exacerbation, may use preventatively TID, titrating down to QID PRN as wheeze & SOB improve. atorvastatin 80 mg tablet 80 mg PO DAILY Qty: 90 3RF (DME) Dexcom G6 Sensor Device See Rx Instructions .ROUTE .COMPLEX Qty: 3 6RF Dose Instruction: USE DIRECTED Rx Instructions: USE DIRECTED methadone [Methadone Intensol] 10 mg/mL concentrate 77 mg PO DAILY naloxone [Narcan] 4 mg/actuation spray,non-aerosol 4 mg intranasal Q2M PRN (Reason: opioid overdose) Qty: 2 0RF Rx Instructions: spray 1 dose into ONE nostril; alternate nostrils w each dose until help arrives (DME) Dexcom G6 Transmitter Device See Rx Instructions .Route Qty: 3 3RF Rx Instructions: As directed pregabalin 200 mg capsule 200 mg PO TID Qty: 90 3RF Patient Comments: -- Pt states she is taking both pregabalin and gabapentin (DME) foam pillow triangular See Rx Instructions .Route .MEDSUPPLY Qty: 1 0RF Rx Instructions: Trial sleeping & resting (legs need elevation) @ 30-40' angle to alleviate SOB/Panic (DME) pen needle, diabetic [BD Ultra-Fine Yamini Pen Needle] 32 gauge x 5/32 needle See Rx Instructions .ROUTE .COMPLEX Qty: 100 0RF Dose Instruction: USE TO ADMINISTER INSULIN ONCE DAILY Rx Instructions: USE TO ADMINISTER INSULIN ONCE DAILY (DME) blood-glucose meter Misc See Rx Instructions .Route Qty: 1 0RF Rx Instructions: One Touch meter (DME) lancets Misc See Rx Instructions .ROUTE .MEDSUPPLY Qty: 400 3RF Rx Instructions: As directed to check blood glucose four times daily. On insulin. Dispense one touch ultra (DME) Blood Glucose Test Strip See Rx Instructions .MEDSUPPLY Qty: 400 3RF Rx Instructions: As directed to check blood glucose four times daily. On insulin. Dispense one touch ultra magnesium oxide 400 mg (241.3 mg magnesium) tablet 400 mg PO BID Qty: 180 0RF nystatin 100,000 unit/gram powder 1 applic Topical BID PRN (Reason: fungal skin infection) Qty: 30 3RF Rx Instructions: Apply powder to affected area under R breast twice daily polyethylene glycol 3350 [Miralax] 17 gram/dose powder 17 g PO DAILY PRN (Reason: constipation/gastroparesis) Qty: 238 0RF Ajovy Autoinjector 225 mg/1.5 mL auto-injector 225 mg subcut QMONTH Patient Comments: Pt has missed the last 2 months Botox 100 unit recon soln 300 unit IM ONCE Patient Comments: -- Pt's last dose was 3 months ago, next dose due anytime Rx Instructions: divided among affected muscles clonidine HCl 0.1 mg tablet 0.1 mg PO TID sumatriptan succinate 100 mg tablet 100 mg PO QDAY MDD 200mg PRN (Reason: migraine headache) Qty: 10 0RF Rx Instructions: Please take 1 daily as needed for headache may repeat in 2 hours Do not take more than 2 tablets in a 24-hour. ondansetron 8 mg tablet,disintegrating 8 mg PO Q8H PRNQty: 30 0RF ketorolac 10 mg tablet 10 mg PO QID PRNQty: 20 0RF Rx Instructions: maximum total duration of 5 days from all oral, intranasal, or parenteral formulations lurasidone 80 mg tablet 40 mg PO DAILY Patient Comments: TAKE ONE TABLET BY MOUTH EVERY DAY WITH AT LEAST 350 CALORIES furosemide 20 mg tablet 20 mg PO QAM metoprolol succinate 100 mg tablet extended release 24 hr 100 mg PO DAILY acyclovir 800 mg tablet 800 mg PO DAILY hydroxyzine pamoate 50 mg capsule 50 mg PO BID Patient Comments: TAKE ONE CAPSULE BY MOUTH TWICE A DAY dextroamphetamine-amphetamine 30 mg tablet 30 mg PO BID Patient Comments: TAKE ONE TABLET BY MOUTH TWICE A DAY @ 5am, 11am olmesartan 20 mg tablet 20 mg PO DAILY valacyclovir 1 gram tablet 1,000 mg PO DAILY PRN (Reason: for flares) Patient Comments: TAKE ONE TABLET BY MOUTH EVERY DAY prn flares methocarbamol 500 mg tablet 500 mg PO HS PRN (Reason: muscle spasm) Rx Instructions: Use lowest effective dose for shortest duration for muscle spasm omeprazole 40 mg capsule,delayed release(DR/EC) 40 mg PO BID acetaminophen 500 mg tablet 1,000 mg PO Q6H MDD 3000 mg PRN (Reason: fever or pain) Rx Instructions: 1 month supply gabapentin 300 mg capsule 300 mg PO HS Patient Comments: -- Pt states she is taking both pregabalin and gabapentin albuterol sulfate 90 mcg/actuation HFA aerosol inhaler 2 puff Inhalation Q4H PRN (Reason: shortness of breath or wheezing) Rx Instructions: DISPENSE ALBUTEROL INHALER BRAND COVERED BY INSURANCE insulin aspart U-100 [Novolog FlexPen U-100 Insulin] 100 unit/mL (3 mL) insulin pen 10 - 15 unit subcut AC Rx Instructions: -- Pt uses 10-15 units sliding scale before meals Gvoke HypoPen 2-Pack 1 mg/0.2 mL auto-injector 1 mg subcut ONCE PRN (Reason: per hypoglycemic protocol) Rx Instructions: HYPOGLYCEMIA; as a single dose; may repeat once after 15 minutes if no response Natural Tears (PF) 0.1-0.3 % dropperette 1 drp ophthalmic (eye) QID PRN lorazepam 1 mg tablet 1 mg PO TID Patient Comments: TAKE ONE TABLET BY MOUTH EVERY DAY NEEDED FOR ANXIETY tobramycin-dexamethasone 0.3-0.1 % drops,suspension 1 drp ophthalmic (eye) BID Patient Comments: INSTILL 1 DROP INTO BOTH EYES THREE TIMES A DAY cyclosporine [Restasis] 0.05 % dropperette 1 drp ophthalmic (eye) BID Patient Comments: INSTILL 1 DROP INTO BOTH EYES TWICE DAILY DIRECTED Discharge Instructions Instructions: Nausea and Vomiting, Adult ED Additional Instructions: No evidence of obstruction on the CT. Your magnesium was slightly low today. Not sure what is causing your nausea and vomiting. Please continue take your previously prescribed nausea medications as directed. Follow up with primary care provider in 3-5 days. Return to ED sooner if any worsening or concerns. Referrals: Kevin Lehman DO [Primary Care Provider, Medicine] - 2 days Referral Note: ER follow-up, call for an appointment Discharge Data Discharge Date/Time-TO BE ENTERED AT DEPARTURE: 07/06/25 16:07 HPI General Mode of arrival: ambulatory. Date/Time Provider Initiated Documentation: 07/06/25 10:50. Limitations to Documentation: no limitations. Information obtained by: patient, RN notes reviewed and old records reviewed. HPI Narrative: 44 year old female presents to the ER with a cc of vomiting and chest pain. Patient was seen in the emergency department yesterday for similar and had a refill of her 8 mg of Zofran which she reports she took around 3 AM. She reports that she has been vomiting for the last 5 days. She is now complaining of midsternal chest pain associated with the vomiting. She is hypertensive upon arrival. She also states she is unable to hold down her methadone. Patient has multiple comorbidities, history of cirrhosis, gastroparesis type 2 diabetes hyperlipidemia hepatitis C, Related Data Home Medications ?Medication ?Instructions ?Recorded ?Confirmed pen needle, diabetic 32 gauge x #100 ea 06/30/23 07/06/25 5/32 (BD Ultra-Fine Yamini Pen Needle) blood-glucose meter #1 ea 08/28/23 07/06/25 lancets #400 ea 08/28/23 07/06/25 naloxone 4 mg/actuation nasal 4 mg intranasal Q2M PRN opioid 02/13/24 07/06/25 spray (Narcan) overdose #2 ea blood sugar diagnostic (Blood #400 ea 04/26/24 07/06/25 Glucose Test strips) magnesium oxide 400 mg (241.3 mg 400 mg PO BID #180 tabs 04/26/24 07/06/25 magnesium) tablet nystatin 100,000 unit/gram topical 1 applic topical BID PRN fungal 05/25/24 07/06/25 powder skin infection #30 grams ipratropium 0.5 mg-albuterol 3 mg 3 ml inhalation QID PRN wheezing 05/31/24 07/06/25 (2.5 mg base)/3 mL nebulization #180 mL soln metoclopramide HCl 10 mg tablet 10 mg PO .tid ac 05/31/24 07/06/25 ondansetron 8 mg disintegrating 8 mg PO BID PRN nausea and 05/31/24 07/06/25 tablet vomiting #60 tabs fremanezumab-vfrm 225 mg/1.5 mL 225 mg subcut QMONTH 06/07/24 07/06/25 subcutaneous auto-injector (Ajovy) onabotulinumtoxinA 100 unit 300 unit IM ONCE 06/07/24 07/06/25 solution for injection (Botox) lurasidone 80 mg tablet 40 mg PO DAILY 06/08/24 07/06/25 atorvastatin 80 mg tablet 80 mg PO DAILY #90 tabs 06/23/24 07/06/25 blood-glucose sensor (Dexcom G6 #3 ea 06/23/24 07/06/25 Sensor device) methadone 10 mg/mL oral 77 mg PO DAILY 06/23/24 07/06/25 concentrate (Methadone Intensol) blood-glucose transmitter (Dexcom #3 ea 07/07/24 07/06/25 G6 Transmitter device) foam pillow #1 ea 07/07/24 07/06/25 pregabalin 200 mg capsule 200 mg PO TID #90 caps 07/07/24 07/06/25 polyethylene glycol 3350 17 17 g PO DAILY PRN 08/02/24 07/06/25 gram/dose oral powder (Miralax) constipation/gastroparesis #238 grams clonidine HCl 0.1 mg tablet 0.1 mg PO TID 09/19/24 07/06/25 acetaminophen 500 mg tablet 1,000 mg PO Q6H PRN fever or pain 01/16/25 07/06/25 acyclovir 800 mg tablet 800 mg PO DAILY 01/16/25 07/06/25 albuterol sulfate 90 mcg/actuation 2 puff inhalation Q4H PRN 01/16/25 07/06/25 aerosol inhaler shortness of breath or wheezing dextran 70-hypromellose (PF) 0.1 1 drp ophthalmic (eye) QID PRN 01/16/25 07/06/25 %-0.3 % eye drops in a dropperette (Natural Tears (PF)) dextroamphetamine-amphetamine 30 30 mg PO BID 01/16/25 07/06/25 mg tablet furosemide 20 mg tablet 20 mg PO QAM 01/16/25 07/06/25 gabapentin 300 mg capsule 300 mg PO HS back pain 01/16/25 07/06/25 glucagon 1 mg/0.2 mL subcutaneous 1 mg subcut ONCE PRN per 01/16/25 07/06/25 auto-injector (Gvoke HypoPen hypoglycemic protocol 2-Pack) hydroxyzine pamoate 50 mg capsule 50 mg PO BID 01/16/25 07/06/25 insulin aspart U-100 100 unit/mL 10 - 15 unit subcut AC 01/16/25 07/06/25 (3 mL) subcutaneous pen (Novolog FlexPen U-100 Insulin aspart) methocarbamol 500 mg tablet 500 mg PO HS PRN muscle spasm 01/16/25 07/06/25 metoprolol succinate 100 mg 100 mg PO DAILY 01/16/25 07/06/25 tablet,extended release 24 hr olmesartan 20 mg tablet 20 mg PO DAILY 01/16/25 07/06/25 omeprazole 40 mg capsule,delayed 40 mg PO BID 01/16/25 07/06/25 release valacyclovir 1 gram tablet 1,000 mg PO DAILY PRN for flares 01/16/25 07/06/25 sumatriptan succinate 100 mg tablet 100 mg PO QDAY PRN migraine 05/24/25 07/06/25 headache #10 tabs cyclosporine 0.05 % eye drops in a 1 drp ophthalmic (eye) BID 06/16/25 07/06/25 dropperette (Restasis) lorazepam 1 mg tablet 1 mg PO TID 06/16/25 07/06/25 tobramycin 0.3 %-dexamethasone 0.1 1 drp ophthalmic (eye) BID 06/16/25 07/06/25 % eye drops,suspension ketorolac 10 mg tablet 10 mg PO QID PRN #20 tabs 07/05/25 07/06/25 ondansetron 8 mg disintegrating 8 mg PO Q8H PRN #30 tabs 07/05/25 07/06/25 tablet Previous Rx's ?Medication ?Instructions ?Recorded pen needle, diabetic 32 gauge x #100 ea 06/30/23 (BD Ultra-Fine Yamini Pen Needle) blood-glucose meter #1 ea 08/28/23 lancets #400 ea 08/28/23 naloxone 4 mg/actuation nasal 4 mg intranasal Q2M PRN opioid 02/13/24 spray (Narcan) overdose #2 ea blood sugar diagnostic (Blood #400 ea 04/26/24 Glucose Test strips) magnesium oxide 400 mg (241.3 mg 400 mg PO BID #180 tabs 04/26/24 magnesium) tablet nystatin 100,000 unit/gram topical 1 applic topical BID PRN fungal 05/25/24 powder skin infection #30 grams ipratropium 0.5 mg-albuterol 3 mg 3 ml inhalation QID PRN wheezing 05/31/24 (2.5 mg base)/3 mL nebulization #180 mL soln ondansetron 8 mg disintegrating 8 mg PO BID PRN nausea and 05/31/24 tablet vomiting #60 tabs atorvastatin 80 mg tablet 80 mg PO DAILY #90 tabs 06/23/24 blood-glucose sensor (Dexcom G6 #3 ea 06/23/24 Sensor device) blood-glucose transmitter (Dexcom #3 ea 07/07/24 G6 Transmitter device) foam pillow #1 ea 07/07/24 pregabalin 200 mg capsule 200 mg PO TID #90 caps 07/07/24 polyethylene glycol 3350 17 17 g PO DAILY PRN 08/02/24 gram/dose oral powder (Miralax) constipation/gastroparesis #238 grams sumatriptan succinate 100 mg tablet 100 mg PO QDAY PRN migraine 05/24/25 headache #10 tabs ketorolac 10 mg tablet 10 mg PO QID PRN #20 tabs 07/05/25 ondansetron 8 mg disintegrating 8 mg PO Q8H PRN #30 tabs 07/05/25 tablet Allergies Allergy/AdvReac Type Severity Reaction Status Date / Time Penicillins Allergy Severe lip and Verified 07/06/25 10:53 facial swelling lamotrigine (From Lamictal) Allergy Unknown Skin Rash Verified 07/06/25 10:53 clindamycin AdvReac Severe Nausea & Verified 07/06/25 10:53 vomiting aspirin AdvReac Intermediate nausea/pain Verified 07/06/25 10:53 General Stated Complaint: Nausea/Vomit/Diar CARLOS: 3 Review of Systems All systems reviewed & are unremarkable except as noted in HPI and below Cardiovascular Cardiovascular: Reports chest pain Gastrointestinal Gastrointestinal: Reports nausea and Reports vomiting Exam Narrative Exam Narrative: Constitutional: Alert and oriented x3. Appears older than stated age. Obese body habitus. Appears chronically ill. Head: Normocephalic, no trauma. Eyes: Pupils PERRL, Red reflex noted, EOM's intact. Eyelids symmetrical without lesions, discharge, or swelling. ENT: Bilateral TM's WNL, External ear normal to inspection, no mastoid TTP, swelling, or erythema, Nasal turbinates WNL, no nasal discharge. Normal dentition, Posterior pharynx WNL, no exudate. Chest: RRR, Normal S1, S2, distal pulses intact. Resp: Lungs clear to auscultation bilaterally, no wheezes, rales, or rhonchi. Abdomen: Soft, non-distended, Normoactive bowel sounds all 4 quads. Musculoskeletal: Normal gait, Moves all 4 extremities without difficulty. Skin: No suspicious rashes or lesions. Capillary refill less than 2 sec. Neurologic: Cranial nerves II-XII intact. Alert and oriented x 3. Motor: No deficits noted. Sensory: Intact bilaterally all 4 extremities. Hematologic/Lymphatic: No ecchymosis, no lymphadenopathy. Course Vital Signs Vital signs: Vital Signs Temperature 36.8 C 07/06/25 10:48 Pulse 97 H 07/06/25 10:48 Respiratory Rate 20 07/06/25 10:48 Blood Pressure 192/102 H 07/06/25 10:48 Pulse Oximetry 98 07/06/25 10:48 Temperature 36.8 C 07/06/25 10:53 Temperature Source Tympanic 07/06/25 10:53 Pulse 97 H 07/06/25 10:53 Respiratory Rate 20 07/06/25 10:53 Blood Pressure 192/102 H 07/06/25 10:53 Blood Pressure Position Sitting 07/06/25 10:53 Pulse Oximetry 98 07/06/25 10:53 Oxygen Delivery Method Room Air 07/06/25 10:53 Oxygen Flow Rate 0 07/06/25 10:53 Medical Decision Making 44 year old female presents to the ER with a cc of vomiting and chest pain. Patient was seen in the emergency department yesterday for similar and had a refill of her 8 mg of Zofran which she reports she took around 3 AM. She reports that she has been vomiting for the last 5 days. She is now complaining of midsternal chest pain associated with the vomiting. She is hypertensive upon arrival. She also states she is unable to hold down her methadone. Patient has multiple comorbidities, history of cirrhosis, gastroparesis type 2 diabetes hyperlipidemia hepatitis C, Workup ordered including CBC CMP serial troponins, EKG, Zofran saline. Patient continues to have intermittent episodes of emesis. Informed by clinical staff rn that [facility] has no record of a patient that is prescribed methadone through them. On [facility] there is no evidence that patient has a methadone prescription as well. Patient continues to intermittently vomit we will give an additional Zofran. Will CT abd. Was able to verify Methadone from [facility], patient does take Methadone 77 mg PO. 1417: Patient continues to vomit, awaiting CT. has received a total 8 mg Zofran and Reglan. Will give droperidol. Patient was able to hold down her liquid Methadone and is getting Magnesium IVPB, Will trial home DC she is tolerating p.o. with dre nader and crackers prior to discharge without further emesis. She does have medication at home. This text was generated using [employer] system, please disregard any oddities of phrase or misspellings. Lab Data Lab results reviewed: Yes I reviewed the patient's lab results. Labs: Laboratory Tests Range/Units 07/06/25 07/06/25 07/06/25 11:15 12:12 14:07 WBC (4.4-10.8) 10^3/uL 12.55 H RBC (3.93-5.22) 10^6/uL 5.75 H Hgb (11.2-15.7) g/dL 12.9 Hct (36.0-46.0) % 41.0 MCV (80-95) fL 71 L MCH (27.0-33.0) pg 22.4 L MCHC (32.0-36.0) % 31.5 L RDW (11.7-14.6) % 19.3 H Plt Count (130-400) 10^3/uL 296 MPV (8.0-11.0) fL 10.9 Immature Gran % % 0.5 Neutrophils % % 72.3 Lymphocytes % % 20.0 Monocytes % % 6.9 Eosinophils % % 0.1 Basophils % % 0.2 Nucleated RBC % (0.0-0.3) % 0.0 Absolute Neutrophils (1.2-6.7) 10^3/uL 9.07 H Absolute Lymphocytes (1.2-3.4) 10^3/uL 2.51 Absolute Monocytes (0.1-0.8) 10^3/uL 0.87 H Absolute Eosinophils (0.0-0.7) 10^3/uL 0.01 Absolute Basophils (0.0-0.2) 10^3/uL 0.03 Sodium (136-145) mmol/L 131 L Potassium (3.5-5.1) mmol/L 3.5 Chloride (98-107) mmol/L 91 L Carbon Dioxide (21.0-32.0) mmol/L 25.8 Anion Gap (3-11) mmol/L 14.2 H BUN (7-18) mg/dL 19 H Creatinine (0.55-1.02) mg/dL 0.8 Est GFR (CKD-EPI 2020) (mL/min/1.73m2) 91.97 Glucose (74-106) mg/dL 354 H Calcium (8.5-10.1) mg/dL 9.5 Magnesium (1.8-2.4) mg/dL 1.6 L Total Bilirubin (0.2-1.0) mg/dL 0.7 AST (15-37) U/L 16 ALT (14-59) U/L 16 Alkaline Phosphatase (46-116) U/L 197 H Troponin I (<or=51) ng/L 13 13 Cancelled Total Protein (6.4-8.2) g/dL 7.5 Albumin (3.4-5.0) g/dL 3.5 PFSH All Active Problems (Updated 07/06/25 @ 15:21 by Sandrita Gautam NP) Vomiting (Acute) Vomiting (Acute) Elbow pain, right (Acute) Acute pain of right wrist (Acute) Pain in joint of right elbow (Acute) Fall (Acute) Dyspareunia in female (Acute 07/09/17) Diabetic foot ulcer (Acute) Orthopnea (Acute) Edema of both lower legs (Acute) l>r .. chf? INACTIVITY? Fatty infiltration of liver (Acute) Hx cirrhosis? 2' pancreatitis (05/2024)? Obstructive sleep apnea of adult (Acute) [facility] 12/23/23 Diabetic cataract of right eye (Acute) Ulcer of right foot limited to breakdown of skin (Acute 04/16/23) [facility] Ulcer of left foot, limited to breakdown of skin (Acute 04/16/23) [facility] Iron deficiency (Acute) 03/2023 iron studies indicating deficiency (NOT anemic) Chronic constipation (Chronic) [facility] Obesity (Chronic) Diabetic neuropathy (Acute) Tobacco use disorder (Chronic) Started smoking age 9 Polypharmacy (Chronic 12/14/15) Mild nonproliferative diabetic retinopathy associated with type 2 diabetes mellitus (Chronic 01/22/16) Depressive disorder (Chronic 10/31/14) ADMISSION SUICIDAL THOUGHTS 06/13/14 OD ATTEMPTS IN PAST Chronic nausea (Chronic) EGD 04/16/16 Dr. 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) Medical History Asthma Cirrhosis of liver [facility] Mental health disorder Pt reports being diagnosed with bipolar disorder, disassociative disorder, anxiety, & multiple personality disorder Gastroparesis (06/28/16) 03/17/[address] 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) Takes daily suppression Hyperlipidemia (09/30/16) 10-year ASCVD risk = unable to calculate due to not being age 40+ however dx T2DM, so Rx for statin Type 2 diabetes mellitus, with long-term current use of insulin With neuropathy & retinopathy (left, mild) Migraine [facility] Opioid use disorder MAT with methadone Chronic fatigue (07/19/15) Osteomyelitis Ulcer of foot due to secondary diabetes Umbilical hernia (03/11/18) 03/17/2018: [facility] Premature surgical menopause JAD/BSO in late 20s, no HRT Hepatitis C 02/14/2016 labwork: undetectable RNA level Surgical History S/P cholecystectomy (06/12/24) Dr Reyes Status post total hysterectomy and bilateral salpingo-oophorectomy (~2006) noncancerous reasons Status post left foot surgery (10/2022) Left fourth metatarsal head excision for chronic ulcer, osteomyelitis ([facility]/Tamia Vidales, DPM) Status post section (~2003) EGD (04/16/16) Dr. Ferrer Family History Mother , 46yo due to kidney & liver failure due to alcohol Substance use disorder Alcohol use disorder Father , 62yo from ALS Substance use disorder Alcohol use disorder ALS (amyotrophic lateral sclerosis) Grandmother Colon cancer Paternal Paternal Uncle Cardiac arrest Substance use disorder Alcohol and Pain Medication Abuse Social History Smoking/Tobacco Use Status: Current every day Tobacco Type: cigarettes Smoking packs per day: 1 Smoking cigarettes per day: 20.0 Years smoked: 34 Smoking pack-years: 34.00 Tobacco: How many years used: 33 Quit status: considering quitting Smoking risk assessment performed?: Yes Alcohol Intake: never Drug use: Occasionally Substance use type: former substance user and marijuana Details: Pt. 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 Pets and animals: Yes (1 dog, 4 cats) Pets and animals: cat(s) and dog(s) Sexually active: Yes Do you think of yourself as: straight/heterosexual Current gender identity: female Other: 09/2022: pt reports she is engaged What is your relationship status?: How often do you talk on the phone with friends or family?: three or more times per week How often do you get together with friends or relatives?: once per week How often do you attend sikhism or cheondoism services?: decline to answer Do you belong to any clubs or organized social groups?: no Panel score (0-1 are the most socially isolated patients): 2 What type of physical activity do you participate in: none Duration: decline to answer Frequency: decline to answer Seatbelt use: always Helmet use: No (No reason to wear one) Drive intox or ride w/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
[2025-07-06 11:22] LABS: Abs Immature Grans 0.06 10^3/uL (0.0-0.06); HCT 41.0 % (36.0-46.0); HGB 12.9 g/dL (11.2-15.7); Immature Grans % 0.5 %; MCH 22.4 pg (27.0-33.0); MCHC 31.5 % (32.0-36.0); MCV 71 fL (80-95); MPV 10.9 fL (8.0-11.0); Platelet Count 296 10^3/uL (130-400); RBC 5.75 10^6/uL (3.93-5.22); RDW 19.3 % (11.7-14.6); RDW-SD 47.0 fL; WBC 12.55 10^3/uL (4.4-10.8)
[2025-07-06] MEDS: Ondansetron 4 MG/2 ML VIAL IVP ×2 (11:27→13:24)
[2025-07-06 11:39] LABS: ALT 16 U/L (14-59); AST 16 U/L (15-37); Albumin 3.5 g/dL (3.4-5.0); Alkaline Phosphatase 197 U/L (46-116); Anion Gap 14.2 mmol/L (3-11); BUN 19 mg/dL (7-18); Bilirubin, Total 0.7 mg/dL (0.2-1.0); CO2 25.8 mmol/L (21.0-32.0); Calcium 9.5 mg/dL (8.5-10.1); Chloride 91 mmol/L (98-107); Estimated GFR 91.97 (mL/min/1.73m2); Glucose 354 mg/dL (74-106); Magnesium 1.6 mg/dL (1.8-2.4); Potassium 3.5 mmol/L (3.5-5.1); Sodium 131 mmol/L (136-145); Total Protein 7.5 g/dL (6.4-8.2); Troponin I 13 ng/L (<or=51)
[2025-07-06] MEDS: Metoclopramide 10 MG/2 ML VIAL IVP (12:10)
--- NOTE | 2025-07-06 12:12 | DI.RAD_ITS ---
Exam(s) XR PORTABLE CHEST AP EXAM: XR PORTABLE CHEST AP CLINICAL HISTORY: Chest pain, Vomiting TECHNIQUE: 2D digital imaging was performed of the chest. Two images were obtained. AP views were obtained. COMPARISON: CR XR PORTABLE CHEST AP from 09/19/2024 CR XR PORTABLE CHEST AP from 01/10/[address] CHEST PE ABD PELVIS W from 03/13/2025 FINDINGS: Exam limited by poor inspiration and technique. MEDIASTINUM: Normal. HEART: Normal. PULMONARY VASCULATURE: Normal. LUNGS: Clear. PLEURAL SPACE: No pleural effusion or pneumothorax. BONE:Within normal limits for the patient's age. OTHER FINDINGS:Normal. IMPRESSION: There are no focal consolidating infiltrates. DATA REPOSITORY: RADIATION DOSE DELIVERED:
[2025-07-06 12:37] LABS: Troponin I 13 ng/L (<or=51)
--- NOTE | 2025-07-06 13:15 | DI.CT_ITS ---
Exam(s) CT ABDOMEN PELVIS W EXAM: CT ABDOMEN PELVIS W CLINICAL HISTORY: Vomiting. TECHNIQUE: Imaging Protocol: Axial computed tomography images with coronal and sagittal reformatted images were created and reviewed CONTRAST MATERIAL: Intravenous: Omnipaque 350 Contrast volume:100 ml Oral: no COMPARISON: CT CT CHEST PE ABD PELVIS W from 03/13/2025 FINDINGS: ABDOMEN and PELVIS: Lung Bases: No acute findings. Liver: Normal density. No suspicious mass. Gallbladder and biliary tract: Cholecystectomy.. No biliary dilation. Pancreas: Normal density. No abnormal calcifications or inflammatory process. No evidence of mass. Spleen: Normal. Kidneys: Normal size, contour and axis. No radiodense stones. No obstructive uropathy. No suspicious masses seen. Adrenal glands: No masses seen. Vasculature: Abdominal aorta non-dilated. Soft tissues: Unremarkable. Bladder: No gross wall thickening. No calculi.No focal mass. Bowel: Stomach is unremarkable. No obstruction. No bowel wall thickening. Appendix normal.increased quantity of stool throughout the colon with sparing of the rectum.. Peritoneal cavity: No ascites. No focal collection. No mesenteric inflammatory response. No free air. Bones: Unremarkable for age. Reproductive organs: Hysterectomy. Lymph nodes: No pathologically enlarged lymph nodes. IMPRESSION:: No acute abnormality in the abdomen or pelvis. RADIATION DOSE DELIVERED: Total DLP DATA REPOSITORY: All CT scans at this facility are submitted to the National Radiology Data Registry (NRDR) Dose Index Registry (DIR) with the [employer] ([employer]). RADIATION OPTIMIZATION: All CT scans at this facility use at least one of these dose optimization techniques: automated exposure control; mA and/or kV adjustment per patient size (includes targeted exams where dose is matched to clinical indication); or iterative reconstruction.
[2025-07-06] MEDS: Normal Saline 500 ML IV (13:24)
[2025-07-06] MEDS: Droperidol 5 MG/2 ML VIAL 1.25 MG IVP (14:27)
[2025-07-06] MEDS: Methadone Liquid 10 MG/ML 77 MG PO (14:31)
[2025-07-06] MEDS: Normal Saline - Diluent 50 ML VIAL IJ (14:32)
[2025-07-06] MEDS: Normal Saline Flush 10 ML SYR IVP (14:33)
[2025-07-06] MEDS: Omnipaque 350 MG/ML 100 ML BTL IJ (14:34)
[2025-07-06] MEDS: MAGNESIUM SULFATE 1 GM/100 ML BAG IV_INF (14:57)
== END 2025-07-06 16:07 | disposition home or self-care (01) ==
PROVIDERS: Emergency Provider Registered Nurse Emergency; PCP Internal Medicine
DX: R11.10 Vomiting, unspecified (principal)
CPT/HCPCS: 99285; 99284; 36415; 96375; 96376; 80053; 93005; 96361; 96365; 71045; 74177; 83735; 84484; 85025; 93010; J1790; J2405; J2765; J3475; J3490

== ENCOUNTER 2025-08-26 09:32 | Emergency (ER) | payer OTHER, SELFPAY ==
[2025-08-26 09:35] VITALS: BP 148/81; PULSE 80; RESP 18; TEMP 36.6; O2SAT 96
[2025-08-26 09:43] VITALS: BP 148/81; PULSE 80; RESP 18; TEMP 36.6; O2SAT 96
[2025-08-26 10:19] LABS: Abs Immature Grans 0.10 10^3/uL (0.0-0.06); BE (Venous) 1 mmol/L (-2-3); HCO3 (Venous) 27 mmol/L (23-28); HCT 37.0 % (36.0-46.0); HGB 11.4 g/dL (11.2-15.7); Immature Grans % 0.6 %; MCH 23.2 pg (27.0-33.0); MCHC 30.8 % (32.0-36.0); MCV 75 fL (80-95); MPV 11.2 fL (8.0-11.0); O2 Sat (Venous) 83 %; Platelet Count 220 10^3/uL (130-400); RBC 4.92 10^6/uL (3.93-5.22); RDW 16.5 % (11.7-14.6); RDW-SD 44.7 fL; TCO2 (Venous) 25 mmol/L (24-29); WBC 18.00 10^3/uL (4.4-10.8); pCO2 (Venous) 54 mmHg (41-51); pO2 (Venous) 45 mmHg
--- NOTE | 2025-08-26 10:30 | DI.RAD_ITS ---
Exam(s) XR FOOT LT COMPLETE EXAM: XR FOOT LT COMPLETE CLINICAL HISTORY: multiple lesions. TECHNIQUE: 2D digital imaging was performed. COMPARISON: CR XR FOOT LT COMPLETE from 01/16/2025 FINDINGS: 3 views Again noted is prior resection of the head of the 4th metatarsal and healed fracture site at the head-neck of the 5th metatarsal. There is no evidence of acute fracture nor diastasis of the Lisfranc joint. No evidence of osteomyelitis at the resected distal 4th meta tarsal site nor elsewhere in the foot. Great toe metatarsophalangeal joint appears unremarkable. Tarsometatarsal joints appear unremarkable. There is a subtle linear lucency in the anterior process of the calcaneus. Cannot exclude subtle fracture at this level (versus nutrient artery canal). IMPRESSION: No evidence of osteomyelitis at the site of prior 4th metatarsal head resection nor elsewhere in the foot. No radiopaque foreign body. No gas in the soft tissues. Subtle linear lucency in the anterior process of the calcaneus. Probably nutrient artery canal but cannot exclude subtle nondisplaced fracture at this level. DATA REPOSITORY: RADIATION DOSE DELIVERED:
--- NOTE | 2025-08-26 10:30 | DI.RAD_ITS ---
Exam(s) XR FOOT RT COMPLETE EXAM: XR FOOT RT COMPLETE CLINICAL HISTORY: multiple lesions. TECHNIQUE: 2D digital imaging was performed. COMPARISON: CR XR FOOT LT COMPLETE from 08/26/2025 FINDINGS: 3 views No evidence of fracture or diastasis of the Lisfranc joint. Bone density normal. No osseous lesions. No evidence of osteomyelitis. No pes planus. There is a tiny enthesophyte on the posterior calcaneus Achilles insertion site. No inferior calcaneal spur. No calcification in the plantar fascitis. Great toe metatarsophalangeal joint other articulations appear unremarkable. IMPRESSION: No significant radiographic findings in the right foot. DATA REPOSITORY: RADIATION DOSE DELIVERED:
--- NOTE | 2025-08-26 10:30 | DI.RAD_ITS ---
Exam(s) XR CHEST 2V PA LATERAL EXAM: XR CHEST 2V PA LATERAL CLINICAL HISTORY: cough. TECHNIQUE: 2D digital imaging was performed. COMPARISON: CR XR PORTABLE CHEST AP from 07/06/2025 FINDINGS: 2 views: Mild cardiomegaly. The mediastinum is not widened. Left lung is clear. Slightly increased markings in the right lower lobe. No pleural effusions. IMPRESSION: Mild increased markings in the right lower lobe. Cannot exclude early infiltrate. Mild cardiomegaly. No evidence of pulmonary edema and there are no pleural effusions. DATA REPOSITORY: RADIATION DOSE DELIVERED:
[2025-08-26 10:46] LABS: ALT 13 U/L (10-49); AST 17 U/L (<34); Albumin 3.9 g/dL (3.2-5.0); Alkaline Phosphatase 175 U/L (46-116); Anion Gap 3.8 mmol/L (3-11); BUN 26 mg/dL (9-23); Bilirubin, Total 0.20 mg/dL (0.2-1.2); CO2 28.2 mmol/L (20.0-31.0); Calcium 8.9 mg/dL (8.3-10.6); Chloride 105 mmol/L (98-107); Glucose 329 mg/dL (74-106); Potassium 4.4 mmol/L (3.5-5.1); Sodium 137 mmol/L (136-145); Total Protein 6.9 g/dL (5.7-8.2)
--- NOTE | 2025-08-26 10:50 | W.ED.GENAD ---
Discharge Plan Disposition Patient Disposition: Home Discharge Details Clinical Impression: Pneumonia, Diabetes, Leukocytosis, Wound of foot Primary Care Provider: Kevin Lehman ED Provider: Judith Chavez Home Meds and New Rx's Prescriptions: New doxycycline hyclate 100 mg capsule 100 mg PO BID Qty: 10 0RF cefuroxime axetil 500 mg tablet 500 mg PO BID Qty: 10 0RF Continued metoclopramide HCl 10 mg tablet 10 mg PO .tid ac Rx Instructions: administer 30 minutes before meals ondansetron 8 mg tablet,disintegrating 8 mg PO BID PRN (Reason: nausea and vomiting) Qty: 60 11RF ipratropium-albuterol 0.5 mg-3 mg(2.5 mg base)/3 mL solution for nebulization 3 ml inhalation QID PRN (Reason: wheezing) Qty: 180 1RF Rx Instructions: During asthma exacerbation, may use preventatively TID, titrating down to QID PRN as wheeze & SOB improve. atorvastatin 80 mg tablet 80 mg PO DAILY Qty: 90 3RF (DME) Dexcom G6 Sensor Device See Rx Instructions .ROUTE .COMPLEX Qty: 3 6RF Dose Instruction: USE DIRECTED Rx Instructions: USE DIRECTED methadone [Methadone Intensol] 10 mg/mL concentrate 77 mg PO DAILY naloxone [Narcan] 4 mg/actuation spray,non-aerosol 4 mg intranasal Q2M PRN (Reason: opioid overdose) Qty: 2 0RF Rx Instructions: spray 1 dose into ONE nostril; alternate nostrils w each dose until help arrives (DME) Dexcom G6 Transmitter Device See Rx Instructions .Route Qty: 3 3RF Rx Instructions: As directed pregabalin 200 mg capsule 200 mg PO TID Qty: 90 3RF Patient Comments: -- Pt states she is taking both pregabalin and gabapentin (DME) foam pillow triangular See Rx Instructions .Route .MEDSUPPLY Qty: 1 0RF Rx Instructions: Trial sleeping & resting (legs need elevation) @ 30-40' angle to alleviate SOB/Panic (DME) pen needle, diabetic [BD Ultra-Fine Yamini Pen Needle] 32 gauge x 5/32 needle See Rx Instructions .ROUTE .COMPLEX Qty: 100 0RF Dose Instruction: USE TO ADMINISTER INSULIN ONCE DAILY Rx Instructions: USE TO ADMINISTER INSULIN ONCE DAILY (DME) blood-glucose meter Misc See Rx Instructions .Route Qty: 1 0RF Rx Instructions: One Touch meter (DME) lancets Misc See Rx Instructions .ROUTE .MEDSUPPLY Qty: 400 3RF Rx Instructions: As directed to check blood glucose four times daily. On insulin. Dispense one touch ultra (DME) Blood Glucose Test Strip See Rx Instructions .MEDSUPPLY Qty: 400 3RF Rx Instructions: As directed to check blood glucose four times daily. On insulin. Dispense one touch ultra magnesium oxide 400 mg (241.3 mg magnesium) tablet 400 mg PO BID Qty: 180 0RF nystatin 100,000 unit/gram powder 1 applic Topical BID PRN (Reason: fungal skin infection) Qty: 30 3RF Rx Instructions: Apply powder to affected area under R breast twice daily polyethylene glycol 3350 [Miralax] 17 gram/dose powder 17 g PO DAILY PRN (Reason: constipation/gastroparesis) Qty: 238 0RF Ajovy Autoinjector 225 mg/1.5 mL auto-injector 225 mg subcut QMONTH Patient Comments: Pt has missed the last 2 months Botox 100 unit recon soln 300 unit IM ONCE Patient Comments: -- Pt's last dose was 3 months ago, next dose due anytime Rx Instructions: divided among affected muscles clonidine HCl 0.1 mg tablet 0.1 mg PO TID sumatriptan succinate 100 mg tablet 100 mg PO QDAY MDD 200mg PRN (Reason: migraine headache) Qty: 10 0RF Rx Instructions: Please take 1 daily as needed for headache may repeat in 2 hours Do not take more than 2 tablets in a 24-hour. ondansetron 8 mg tablet,disintegrating 8 mg PO Q8H PRNQty: 30 0RF ketorolac 10 mg tablet 10 mg PO QID PRNQty: 20 0RF Rx Instructions: maximum total duration of 5 days from all oral, intranasal, or parenteral formulations lurasidone 80 mg tablet 40 mg PO DAILY Patient Comments: TAKE ONE TABLET BY MOUTH EVERY DAY WITH AT LEAST 350 CALORIES furosemide 20 mg tablet 20 mg PO QAM metoprolol succinate 100 mg tablet extended release 24 hr 100 mg PO DAILY acyclovir 800 mg tablet 800 mg PO DAILY hydroxyzine pamoate 50 mg capsule 50 mg PO BID Patient Comments: TAKE ONE CAPSULE BY MOUTH TWICE A DAY dextroamphetamine-amphetamine 30 mg tablet 30 mg PO BID Patient Comments: TAKE ONE TABLET BY MOUTH TWICE A DAY @ 5am, 11am olmesartan 20 mg tablet 20 mg PO DAILY valacyclovir 1 gram tablet 1,000 mg PO DAILY PRN (Reason: for flares) Patient Comments: TAKE ONE TABLET BY MOUTH EVERY DAY prn flares methocarbamol 500 mg tablet 500 mg PO HS PRN (Reason: muscle spasm) Rx Instructions: Use lowest effective dose for shortest duration for muscle spasm omeprazole 40 mg capsule,delayed release(DR/EC) 40 mg PO BID acetaminophen 500 mg tablet 1,000 mg PO Q6H MDD 3000 mg PRN (Reason: fever or pain) Rx Instructions: 1 month supply gabapentin 300 mg capsule 300 mg PO HS Patient Comments: -- Pt states she is taking both pregabalin and gabapentin albuterol sulfate 90 mcg/actuation HFA aerosol inhaler 2 puff Inhalation Q4H PRN (Reason: shortness of breath or wheezing) Rx Instructions: DISPENSE ALBUTEROL INHALER BRAND COVERED BY INSURANCE insulin aspart U-100 [Novolog FlexPen U-100 Insulin] 100 unit/mL (3 mL) insulin pen 10 - 15 unit subcut AC Rx Instructions: -- Pt uses 10-15 units sliding scale before meals Gvoke HypoPen 2-Pack 1 mg/0.2 mL auto-injector 1 mg subcut ONCE PRN (Reason: per hypoglycemic protocol) Rx Instructions: HYPOGLYCEMIA; as a single dose; may repeat once after 15 minutes if no response Natural Tears (PF) 0.1-0.3 % dropperette 1 drp ophthalmic (eye) QID PRN lorazepam 1 mg tablet 1 mg PO TID Patient Comments: TAKE ONE TABLET BY MOUTH EVERY DAY NEEDED FOR ANXIETY tobramycin-dexamethasone 0.3-0.1 % drops,suspension 1 drp ophthalmic (eye) BID Patient Comments: INSTILL 1 DROP INTO BOTH EYES THREE TIMES A DAY cyclosporine [Restasis] 0.05 % dropperette 1 drp ophthalmic (eye) BID Patient Comments: INSTILL 1 DROP INTO BOTH EYES TWICE DAILY DIRECTED Discharge Instructions Instructions: Community-Acquired Pneumonia, Adult (DC), Foot Care for Diabetics, Diabetes and diet Additional Instructions: Change your Dexcom when you arrive home, I suspect it is malfunctioning Please follow-up with your doctor on Friday for reassessment and return to the emergency department should you have new or worsening complaints Take the antibiotics as prescribed for developing pneumonia in the right lower lobe Make sure you are using your long-acting insulin in the morning Use short acting insulin per sliding scale Your glucose here was 329, please check your level again before you use sliding scale short acting insulin I am placing a referral to see the assessment services manager regarding the wounds on your foot, foot care is very important for diabetics so please be sure to follow-up Stand Alone Forms: Portal Information Referrals: Kevin Lehman DO [Primary Care Provider, Medicine] Carlota Dejesus DPM [[facility] STAFF PHYSICIAN, Podiatry] [facility] General Date/Time Provider Initiated Documentation: 08/26/25 09:42. HPI Narrative: This 44-year-old female insulin-dependent type 2 diabetic presents with report of low Dexcom reading below 40 this morning. Patient called her doctor's office and they encouraged her to use her glucagon. Patient states her blood sugar was persistently low and she was encouraged to call EMS for transport to the emergency department. She replaced this Dexcom approximately 3 days ago. She states that she has been sick with upper respiratory symptoms cough for the past week. Denies illicit substance use. Does report some blisters on her feet has not followed up podiatry recently. Did have a small piece of pie this morning. Related Data Home Medications ?Medication ?Instructions ?Recorded ?Confirmed pen needle, diabetic 32 gauge x #100 ea 06/30/23 07/06/25 5/32 (BD Ultra-Fine Yamini Pen Needle) blood-glucose meter #1 ea 08/28/23 07/06/25 lancets #400 ea 08/28/23 07/06/25 naloxone 4 mg/actuation nasal 4 mg intranasal Q2M PRN opioid 02/13/24 07/06/25 spray (Narcan) overdose #2 ea blood sugar diagnostic (Blood #400 ea 04/26/24 07/06/25 Glucose Test strips) magnesium oxide 400 mg (241.3 mg 400 mg PO BID #180 tabs 04/26/24 07/06/25 magnesium) tablet nystatin 100,000 unit/gram topical 1 applic topical BID PRN fungal 05/25/24 07/06/25 powder skin infection #30 grams ipratropium 0.5 mg-albuterol 3 mg 3 ml inhalation QID PRN wheezing 05/31/24 07/06/25 (2.5 mg base)/3 mL nebulization #180 mL soln metoclopramide HCl 10 mg tablet 10 mg PO .tid ac 05/31/24 07/06/25 ondansetron 8 mg disintegrating 8 mg PO BID PRN nausea and 05/31/24 07/06/25 tablet vomiting #60 tabs fremanezumab-vfrm 225 mg/1.5 mL 225 mg subcut QMONTH 06/07/24 07/06/25 subcutaneous auto-injector (Ajovy) onabotulinumtoxinA 100 unit 300 unit IM ONCE 06/07/24 07/06/25 solution for injection (Botox) lurasidone 80 mg tablet 40 mg PO DAILY 06/08/24 07/06/25 atorvastatin 80 mg tablet 80 mg PO DAILY #90 tabs 06/23/24 07/06/25 blood-glucose sensor (Dexcom G6 #3 ea 06/23/24 07/06/25 Sensor device) methadone 10 mg/mL oral 77 mg PO DAILY 06/23/24 07/06/25 concentrate (Methadone Intensol) blood-glucose transmitter (Dexcom #3 ea 07/07/24 07/06/25 G6 Transmitter device) foam pillow #1 ea 07/07/24 07/06/25 pregabalin 200 mg capsule 200 mg PO TID #90 caps 07/07/24 07/06/25 polyethylene glycol 3350 17 17 g PO DAILY PRN 08/02/24 07/06/25 gram/dose oral powder (Miralax) constipation/gastroparesis #238 grams clonidine HCl 0.1 mg tablet 0.1 mg PO TID 09/19/24 07/06/25 acetaminophen 500 mg tablet 1,000 mg PO Q6H PRN fever or pain 01/16/25 07/06/25 acyclovir 800 mg tablet 800 mg PO DAILY 01/16/25 07/06/25 albuterol sulfate 90 mcg/actuation 2 puff inhalation Q4H PRN 01/16/25 07/06/25 aerosol inhaler shortness of breath or wheezing dextran 70-hypromellose (PF) 0.1 1 drp ophthalmic (eye) QID PRN 01/16/25 07/06/25 %-0.3 % eye drops in a dropperette (Natural Tears (PF)) dextroamphetamine-amphetamine 30 30 mg PO BID 01/16/25 07/06/25 mg tablet furosemide 20 mg tablet 20 mg PO QAM 01/16/25 07/06/25 gabapentin 300 mg capsule 300 mg PO HS back pain 01/16/25 07/06/25 glucagon 1 mg/0.2 mL subcutaneous 1 mg subcut ONCE PRN per 01/16/25 07/06/25 auto-injector (Gvoke HypoPen hypoglycemic protocol 2-Pack) hydroxyzine pamoate 50 mg capsule 50 mg PO BID 01/16/25 07/06/25 insulin aspart U-100 100 unit/mL 10 - unit subcut AC 01/16/25 07/06/25 (3 mL) subcutaneous pen (Novolog FlexPen U-100 Insulin aspart) methocarbamol 500 mg tablet 500 mg PO HS PRN muscle spasm 01/16/25 07/06/25 metoprolol succinate 100 mg 100 mg PO DAILY 01/16/25 07/06/25 tablet,extended release 24 hr olmesartan 20 mg tablet 20 mg PO DAILY 01/16/25 07/06/25 omeprazole 40 mg capsule,delayed 40 mg PO BID 01/16/25 07/06/25 release valacyclovir 1 gram tablet 1,000 mg PO DAILY PRN for flares 01/16/25 07/06/25 sumatriptan succinate 100 mg tablet 100 mg PO QDAY PRN migraine 05/24/25 07/06/25 headache #10 tabs cyclosporine 0.05 % eye drops in a 1 drp ophthalmic (eye) BID 06/16/25 07/06/25 dropperette (Restasis) lorazepam 1 mg tablet 1 mg PO TID 06/16/25 07/06/25 tobramycin 0.3 %-dexamethasone 0.1 1 drp ophthalmic (eye) BID 06/16/25 07/06/25 % eye drops,suspension ketorolac 10 mg tablet 10 mg PO QID PRN #20 tabs 07/05/25 07/06/25 ondansetron 8 mg disintegrating 8 mg PO Q8H PRN #30 tabs 07/05/25 07/06/25 tablet cefuroxime axetil 500 mg tablet 500 mg PO BID #10 tabs 08/26/25 doxycycline hyclate 100 mg capsule 100 mg PO BID #10 caps 08/26/25 Previous Rx's ?Medication ?Instructions ?Recorded pen needle, diabetic 32 gauge x #100 ea 06/30/23 (BD Ultra-Fine Yamini Pen Needle) blood-glucose meter #1 ea 08/28/23 lancets #400 ea 08/28/23 naloxone 4 mg/actuation nasal 4 mg intranasal Q2M PRN opioid 02/13/24 spray (Narcan) overdose #2 ea blood sugar diagnostic (Blood #400 ea 04/26/24 Glucose Test strips) magnesium oxide 400 mg (241.3 mg 400 mg PO BID #180 tabs 04/26/24 magnesium) tablet nystatin 100,000 unit/gram topical 1 applic topical BID PRN fungal 05/25/24 powder skin infection #30 grams ipratropium 0.5 mg-albuterol 3 mg 3 ml inhalation QID PRN wheezing 05/31/24 (2.5 mg base)/3 mL nebulization #180 mL soln ondansetron 8 mg disintegrating 8 mg PO BID PRN nausea and 05/31/24 tablet vomiting #60 tabs atorvastatin 80 mg tablet 80 mg PO DAILY #90 tabs 06/23/24 blood-glucose sensor (Dexcom G6 #3 ea 06/23/24 Sensor device) blood-glucose transmitter (Dexcom #3 ea 07/07/24 G6 Transmitter device) foam pillow #1 ea 07/07/24 pregabalin 200 mg capsule 200 mg PO TID #90 caps 07/07/24 polyethylene glycol 3350 17 17 g PO DAILY PRN 08/02/24 gram/dose oral powder (Miralax) constipation/gastroparesis #238 grams sumatriptan succinate 100 mg tablet 100 mg PO QDAY PRN migraine 05/24/25 headache #10 tabs ketorolac 10 mg tablet 10 mg PO QID PRN #20 tabs 07/05/25 ondansetron 8 mg disintegrating 8 mg PO Q8H PRN #30 tabs 07/05/25 tablet cefuroxime axetil 500 mg tablet 500 mg PO BID #10 tabs 08/26/25 doxycycline hyclate 100 mg capsule 100 mg PO BID #10 caps 08/26/25 Allergies Allergy/AdvReac Type Severity Reaction Status Date / Time Penicillins Allergy Severe lip and Verified 08/26/25 09:41 facial swelling lamotrigine (From Lamictal) Allergy Unknown Skin Rash Verified 08/26/25 09:41 clindamycin AdvReac Severe Nausea & Verified 08/26/25 09:41 vomiting aspirin AdvReac Intermediate nausea/pain Verified 08/26/25 09:41 General Stated Complaint: Diabetes CARLOS: 3 Exam Narrative Exam Narrative: Alert and oriented 44-year-old female in no acute distress, there is chronically ill she has blisters on the bottoms of both feet although they do not look overwhelmingly infected and there is no surrounding erythema or drainage I can appreciate she is neurovascularly intact, she has no scant scattered wheezes without respiratory distress, sinus tachycardia no abdominal tenderness Course Vital Signs Vital signs: Vital Signs Temperature 36.6 C 08/26/25 09:35 Pulse 80 08/26/25 09:35 Respiratory Rate 18 08/26/25 09:35 Blood Pressure 148/81 H 08/26/25 09:35 Pulse Oximetry 96 08/26/25 09:35 Temperature 36.6 C 08/26/25 09:43 Temperature Source Tympanic 08/26/25 09:43 Pulse 80 08/26/25 09:43 Respiratory Rate 18 08/26/25 09:43 Blood Pressure 148/81 H 08/26/25 09:43 Blood Pressure Position Sitting 08/26/25 09:43 Pulse Oximetry 96 08/26/25 09:43 Oxygen Delivery Method Room Air 08/26/25 09:43 Oxygen Flow Rate 0 08/26/25 09:43 Pain Level 6 08/26/25 09:43 Comment chronic pain 08/26/25 09:43 Lab/Test Results Lab/Test Results: Laboratory Tests Range/Units 08/26/25 10:10 WBC (4.4-10.8) 10^3/uL 18.00 H RBC (3.93-5.22) 10^6/uL 4.92 Hgb (11.2-15.7) g/dL 11.4 Hct (36.0-46.0) % 37.0 MCV (80-95) fL 75 L MCH (27.0-33.0) pg 23.2 L MCHC (32.0-36.0) % 30.8 L RDW (11.7-14.6) % 16.5 H Plt Count (130-400) 10^3/uL 220 MPV (8.0-11.0) fL 11.2 H Immature Gran % % 0.6 Neutrophils % % 77.5 Lymphocytes % % 15.7 Monocytes % % 4.9 Eosinophils % % 1.0 Basophils % % 0.3 Nucleated RBC % (0.0-0.3) % 0.0 Absolute Neutrophils (1.2-6.7) 10^3/uL 13.95 H Absolute Lymphocytes (1.2-3.4) 10^3/uL 2.83 Absolute Monocytes (0.1-0.8) 10^3/uL 0.88 H Absolute Eosinophils (0.0-0.7) 10^3/uL 0.18 Absolute Basophils (0.0-0.2) 10^3/uL 0.05 VBG pH (7.31-7.41) 7.31 VBG pCO2 (41-51) mmHg 54 H VBG pO2 mmHg 45 VBG HCO3 (23-28) mmol/L 27 VBG Total CO2 (24-29) mmol/L 25 VBG O2 Saturation % 83 VBG Base Excess (-2-3) mmol/L 1 Sodium (136-145) mmol/L 137 Potassium (3.5-5.1) mmol/L 4.4 Chloride (98-107) mmol/L 105 Carbon Dioxide (20.0-31.0) mmol/L 28.2 Anion Gap (3-11) mmol/L 3.8 BUN (9-23) mg/dL 26 H Creatinine (0.55-1.02) mg/dL 0.70 Est GFR (CKD-EPI 2020) (mL/min/1.73m2) 89.77 Glucose (74-106) mg/dL 329 H Calcium (8.3-10.6) mg/dL 8.9 Total Bilirubin (0.2-1.2) mg/dL 0.20 AST (<34) U/L 17 ALT (10-49) U/L 13 Alkaline Phosphatase (46-116) U/L 175 H Total Protein (5.7-8.2) g/dL 6.9 Albumin (3.2-5.0) g/dL 3.9 Medical Decision Making Results: Chest x-ray with developing right lower lobe Ult infiltrate per radiology interpretation my review, x-rays of bilateral feet do not show acute abnormality with leukocytosis at 18,000, glucose of 329 VBG reassuring urinalysis did not show significant acute abnormality Assessment and plan: Patient with evidence of developing right lower lobe infiltrate which likely explains the elevated blood glucose level, she is otherwise quite well in appearance. I think she stable for outpatient discharge will place on cefdinir and doxycycline for treatment. Patient with bilateral blisters on the dorsal aspect of her feet. Will refer to podiatry here at our facility given her history of diabetes and risk of infection. She is encouraged to replace her Dexcom as it seems to be malfunctioning and to use sliding scale to manage her glucose at home. I see no indication to treat her in the emergency department as she does have access to a short and long acting insulin at her home. She discharged home in stable condition with stable vitals with no close outpatient recheck on Friday with her PCP early return should she have new or worsening complaints no hypoxia or tachypnea appreciated. No evidence of infection bilateral feet although multiple blisters were noted. Referral to podiatry placed [facility] All Active Problems (Updated 08/26/25 @ 11:36 by ALTA Hare) Wound of foot (Acute) Leukocytosis (Acute) Diabetes (Chronic) Pneumonia (Acute) Pain in joint of right elbow (Acute) Dyspareunia in female (Acute 07/09/17) Diabetic foot ulcer (Acute) Orthopnea (Acute) Edema of both lower legs (Acute) l>r .. chf? INACTIVITY? Fatty infiltration of liver (Acute) Hx cirrhosis? 2' pancreatitis (05/2024)? Obstructive sleep apnea of adult (Acute) [facility] 12/23/23 Diabetic cataract of right eye (Acute) Ulcer of right foot limited to breakdown of skin (Acute 04/16/23) [facility] Podiatry Ulcer of left foot, limited to breakdown of skin (Acute 04/16/23) [facility] Iron deficiency (Acute) 03/2023 iron studies indicating deficiency (NOT anemic) Chronic constipation (Chronic) [facility] Obesity (Chronic) Diabetic neuropathy (Acute) Tobacco use disorder (Chronic) Started smoking age 9 Polypharmacy (Chronic 12/14/15) Mild nonproliferative diabetic retinopathy associated with type 2 diabetes mellitus (Chronic 01/22/16) Depressive disorder (Chronic 10/31/14) ADMISSION SUICIDAL THOUGHTS 06/13/14 OD ATTEMPTS IN PAST Chronic nausea (Chronic) EGD 04/16/16 Dr. 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) Medical History Asthma Cirrhosis of liver [facility] GI Mental health disorder Pt reports being diagnosed with bipolar disorder, disassociative disorder, anxiety, & multiple personality disorder Gastroparesis (06/28/16) 03/17/[address] 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) Takes daily suppression Hyperlipidemia (09/30/16) 10-year ASCVD risk = unable to calculate due to not being age 40+ however dx T2DM, so Rx for statin Type 2 diabetes mellitus, with long-term current use of insulin With neuropathy & retinopathy (left, mild) Migraine [facility] Neuro Opioid use disorder MAT with methadone Chronic fatigue (07/19/15) Osteomyelitis Ulcer of foot due to secondary diabetes Umbilical hernia (03/11/18) 03/17/2018: [facility] GI Premature surgical menopause JAD/BSO in late 20s, no HRT Hepatitis C 02/14/2016 labwork: undetectable RNA level Surgical History S/P cholecystectomy (06/12/24) Dr Reyes Status post total hysterectomy and bilateral salpingo-oophorectomy (~2006) noncancerous reasons Status post left foot surgery (10/2022) Left fourth metatarsal head excision for chronic ulcer, osteomyelitis ([facility]/Tamia Vidales DPM) Status post section (~2003) EGD (04/16/16) Dr. Ferrer Family History Mother , 46yo due to kidney & liver failure due to alcohol Substance use disorder Alcohol use disorder Father , 62yo from ALS Substance use disorder Alcohol use disorder ALS (amyotrophic lateral sclerosis) Grandmother Colon cancer Paternal Paternal Uncle Cardiac arrest Substance use disorder Alcohol and Pain Medication Abuse Social History Smoking/Tobacco Use Status: Current every day Tobacco Type: cigarettes Smoking packs per day: 1 Smoking cigarettes per day: 20.0 Years smoked: 34 Smoking pack-years: 34.00 Tobacco: How many years used: 33 Quit status: considering quitting Smoking risk assessment performed?: Yes Alcohol Intake: never Drug use: Rarely Substance use type: former substance user and marijuana Details: occasional gummy Pt. 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 Pets and animals: Yes (1 dog, 4 cats) Pets and animals: cat(s) and dog(s) Sexually active: Yes Do you think of yourself as: straight/heterosexual Current gender identity: female Other: 09/2022: pt reports she is engaged What is your relationship status?: How often do you talk on the phone with friends or family?: three or more times per week How often do you get together with friends or relatives?: once per week How often do you attend cheondoism or jainism services?: decline to answer Do you belong to any clubs or organized social groups?: no Panel score (0-1 are the most socially isolated patients): 2 What type of physical activity do you participate in: none Duration: decline to answer Frequency: decline to answer Seatbelt use: always Helmet use: No (No reason to wear one) Drive intox or ride w/intox 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
[2025-08-26 10:55] LABS: Glucose >=1000 mg/dL (Negative)
[2025-08-26 10:56] LABS: C & S Indicated? No; RBC Negative HPF (0-2); WBC Negative HPF (0-5)
[2025-08-26] MEDS: Ketorolac 15 MG/ML VIAL 7.5 MG IVP (12:04)
== END 2025-08-26 12:06 | disposition home or self-care (01) ==
PROVIDERS: Emergency Provider Physician Assistant; PCP Internal Medicine
DX: J18.9 Pneumonia, unspecified organism (principal); E11.69 Type 2 diabetes mellitus with other specified complication; D72.829 Elevated white blood cell count, unspecified
CPT/HCPCS: 99284 ×2; 36415; 36416; 82962; 96374; 80053; 82805; 71046; 73630; 81003; 81015; 85025; J1885